=== PATIENT | female | born 1955 | race Caucasian/White ===

== ENCOUNTER 2020-07-08 14:21 | Outpatient (REF) | payer MEDICARE, MEDICAID, SELFPAY | END 2020-07-08 14:22 | disposition home or self-care (01) | LOC: HO.HMGCLDS 14:21 | PROVIDERS: PCP Internal Medicine; Visit Provider Internal Medicine | DX: Z20.828 Contact with and (suspected) exposure to other viral communicable diseases (principal) | CPT/HCPCS: C9803; U0003 ==

== ENCOUNTER 2021-04-09 14:19 | Outpatient (REF) | payer MEDICARE, MEDICAID, SELFPAY ==
[2021-04-09 16:30] LABS: Hematocrit 43.1 % (37-47); Hemoglobin 14.3 g/dl (12.0-16.0)
[2021-04-09 16:57] LABS: Alanine Aminotransferase 11 U/L (0-31); Albumin Level 4.7 g/dL (3.5-5.0); Alkaline Phosphatase 59 U/L (39-117); Anion Gap 13 (12-20); Aspartate Amino Transferase 27 U/L (5-31); Bilirubin Direct 0.2 mg/dL (0.0-0.5); Bilirubin Total 0.6 mg/dL (0.0-1.0); Blood Urea Nitrogen 18 mg/dL (9-16); Calcium 9.7 mg/dL (8.4-10.2); Carbon Dioxide 36 mmol/L (22-29); Chloride 88 mmol/L (96-108); Estimated Glomerular Filt Rate > 60; Glucose Random 101 mg/dL (60-115); Magnesium 1.7 mg/dL (1.6-2.6); Potassium 4.6 mmol/L (3.3-5.1); Sodium 132 mmol/L (135-145); Total Protein 7.2 g/dL (6.5-8.0)
[2021-04-09 17:17] LABS: TSH reflex Free T4 39.29 uIU/mL (0.32-4.0)
[2021-04-09 17:21] LABS: Vitamin B12 397 pg/mL (200-900)
[2021-04-09 18:09] LABS: Free T4 (Free Thyroxine) 0.68 ng/dL (0.71-1.85)
[2021-04-11 12:36] LABS: LDL Cholesterol Direct 166 mg/dL (<100)
[2021-04-13 12:41] LABS: Vitamin D 25-OH, D2 <4 ng/mL; Vitamin D 25-OH, D3 32 ng/mL; Vitamin D 25-OH, Total 32 ng/mL (30-100)
== END 2021-04-09 14:20 | disposition home or self-care (01) ==
LOC: HO.HMGCLDS 14:19
PROVIDERS: PCP Internal Medicine; Visit Provider Internal Medicine
DX: D64.9 Anemia, unspecified (principal); E03.8 Other specified hypothyroidism; E87.1 Hypo-osmolality and hyponatremia; F33.41 Major depressive disorder, recurrent, in partial remission; G47.9 Sleep disorder, unspecified; I10 Essential (primary) hypertension; J44.9 Chronic obstructive pulmonary disease, unspecified; R25.3 Fasciculation; R42 Dizziness and giddiness; R63.6 Underweight; Z91.81 History of falling
CPT/HCPCS: 36415; 80053; 82248; 82306; 82607; 83721; 83735; 84439; 84443; 85014; 85018

== ENCOUNTER 2022-01-28 08:32 | Emergency (ER) | payer MEDICARE, MEDICAID, SELFPAY ==
--- NOTE | ~2022-01-28 | XR_ITS ---
EXAMINATION: XR CHEST CLINICAL INFORMATION: Shortness of breath COMPARISON: Previous chest CT November 2020 TECHNIQUE: Frontal view of the chest was obtained. FINDINGS: The lungs are well inflated. There is an azygos lobe. There are increased bronchial markings or bronchial wall thickening. No evidence of pneumonia is seen. There is a 4 mm nodule projecting over the left midlung and posterior ninth and anterior fifth ribs. The lungs are otherwise clear. The cardiac and mediastinal contours are normal. There is no pleural effusion or pneumothorax. XR/XR chest 1V IMPRESSION: Well-inflated lungs. Bronchial wall thickening suggestive of bronchitis or airways disease. No definite pneumonia. Question 4 mm left lung base pulmonary nodule.
[2022-01-28 08:37] VITALS: BP 162/90; PULSE 96; RESP 22; TEMP 36.7; O2SAT 91; BMI 20.4
--- NOTE | 2022-01-28 09:09 | ECG_ITS ---
Test Reason : exertional sob Blood Pressure : / mmHG Vent. Rate : 081 BPM Atrial Rate : 081 BPM P-R Int : 112 ms QRS Dur : 080 ms QT Int : 346 ms P-R-T Axes : 059 062 049 degrees QTc Int : 401 ms Normal sinus rhythm Normal ECG No previous ECGs available Referred By: Nay Tavera Electronically Signed By:Julio Cesar Viera
--- NOTE | 2022-01-28 09:16 | ED.GENADULT ---
HPI - General Adult General Chief complaint: Dyspnea Stated complaint: infestation coming out of buttocks Time Seen by Provider: 01/28/22 08:40 Source: patient Mode of arrival: ambulatory History of Present Illness HPI narrative: 66-year-old female with a past medical history of COPD on home O2, HTN, depression, hypothyroid, vertigo, presenting to ED with daughter complaining of exertional SOB, lightheadedness, failure to thrive, and parasitic infestation for unknown amount of time. Most history obtained from daughter reports patient has been living with her for the past 11 years and recently found maggots/bugs and toilet/couch, states patient does not bathe regularly or eaten unless forced. Patient also reports intermittent bright red blood per rectum, denies at present. Patient denies new or worsening cough, CP, abdominal pain, nausea, vomiting Onset (ago): unknown Related Data Home Medications Medication Instructions Recorded Confirmed albuterol sulfate 2.5 mg inhalation QID PRN Wheezing 08/25/20 01/28/22 budesonide-formoterol HFA 160 2 puff inhalation Q12H 08/25/20 01/28/22 mcg-4.5 mcg/actuation aerosol inhaler (Symbicort) albuterol sulfate 90 mcg/actuation 2 puff PO Q4-6H PRN Wheezing 01/28/22 01/28/22 aerosol inhaler (ProAir HFA) clonazepam 0.5 mg tablet 1 tab PO DAILY PRN Anxiety 01/28/22 01/28/22 Previous Rx's Medication Instructions Recorded tiotropium bromide 18 mcg capsule 1 cap inhalation DAILY 90 days #90 05/15/20 with inhalation device (Spiriva inhalations with HandiHaler) Walker with wheels and baske, #1 ea 05/04/21 seat, and break sertraline 100 mg tablet 100 mg PO DAILY 90 days #90 tabs 05/28/21 clopidogrel 75 mg tablet (Plavix) 75 mg PO DAILY 90 days #90 tabs 07/13/21 levothyroxine 125 mcg tablet 125 mcg PO DAILY 90 days #90 tabs 12/03/21 lisinopril 20 mg tablet 20 mg PO DAILY #90 tabs 01/16/22 albendazole 200 mg tablet 400 mg PO Q2W 2 doses #2 tabs 01/28/22 prednisone 20 mg tablet 40 mg PO DAILY 5 days #10 tabs 01/28/22 Allergies Allergy/AdvReac Type Severity Reaction Status Date / Time codeine Allergy Unknown hives Verified 05/26/20 12:04 Review of Systems Review of Systems: Constitutional: No Fever, No Chills, + Fatigue, No Malaise ENT/Mouth: No Ear Pain, No Nasal Congestion, No Hoarseness, No sore throat, No Rhinorrhea, No Swallowing Difficulty Eyes: No Eye Pain, No Swelling, No Redness Cardiovascular: No Chest Pain, + SOB, + Dyspnea on Exertion, No Orthopnea, No Edema, No Palpitations Respiratory: + Cough, No Sputum, No Wheezing, No Dyspnea Gastrointestinal: No Nausea, No Vomiting, No Diarrhea, No Constipation, No Abdominal pain, No Melena, +brbpr Genitourinary: No Dysuria, No Urinary Frequency, No Hematuria, No Flank Pain, No Urinary Flow Changes, No Hesitancy Musculoskeletal: No joint pain, No Myalgias, No Joint Swelling Skin: No Skin Lesions, No rash Neuro: No Weakness, No Loss of Consciousness, + lightheaded, No Headache Yes all other systems are reviewed and are negative FORMERLY [facility], [facility] Past Medical History Attestation statement: The following information was validated with the patient. Surgical History Amputated toe History of appendectomy History of surgery Hx of cholecystectomy Family History Family History Father No problems noted. Mother Stomach cancer Brother No problems noted. Brother No problems noted. Brother No problems noted. Brother No problems noted. Brother No problems noted. Brother No problems noted. Sister No problems noted. Sister No problems noted. Sister No problems noted. Sister No problems noted. Social History Social History Housing: Apartment Patient Tobacco Use Status: Current everyday Tobacco user Tobacco use type: Cigarette Cigarettes Per Day: 3 e-Cigarette/Vaping Use: Never Used Advance Directives: No Advance Directives Information Provided: No Current occupational status: retired and disabled Physical Exam ED Vital Signs: Vital Signs - 24 hr 01/28/22 08:37 01/28/22 09:18 01/28/22 10:00 Temperature 98.1 F 97.7 F Pulse Rate 96 76 77 Respiratory Rate 22 H 20 16 Blood Pressure 162/90 H 168/72 H Pulse Oximetry 91 L 93 Oxygen Delivery Method Nasal Cannula Nasal Cannula Oxygen Flow Rate 2 01/28/22 12:07 Temperature Pulse Rate 71 Respiratory Rate 16 Blood Pressure Pulse Oximetry Oxygen Delivery Method Oxygen Flow Rate BMI result Body Mass Index 20.4 Const General: cooperative, no acute distress and ill appearing chronically Orientation/consciousness: patient oriented x3 Limitations: no limitations HENMT Head: Yes normal to inspection and Yes atraumatic Ears: hearing grossly normal bilaterally General nose exam: Normal external nose present Face and sinus: Yes normal facial exam Eyes General: appearance normal, both eyes and all related structures EOM: EOMs intact bilaterally Neck Neck: Yes normal visual inspection and Yes no meningeal signs Resp Effort & Inspection: normal respiratory effort and no respiratory distress Auscultation: wheezes expiratory wheezes Cardio Rate: regular rate Heart sounds: S1 normal heart sound present and S2 normal heart sound present GI Other: Large prolapsed internal hemorrhoid. No evidence of thrombosis. No active bleeding. Inspection: Yes normal to inspection Palpation (GI): Soft to palpation, nontender, no guarding and not rigid Rectal Exam - Female: Internal hemorrhoid(s) present Skin Rashes: no rashes Wounds: no wounds Neuro General: patient oriented x3, tone normal and no meningeal signs Gait exam (Neuro): Normal gait present Extrem General: Yes normal to inspection Course Course Course Narrative: -1051--mild thrombocytopenia (acute on chronic), BNP mildly elevated to 124 clinically not in fluid overload. Labs otherwise unremarkable -occult stool negative -COVID-19 and influenza negative XR chest 1V IMPRESSION: Well-inflated lungs. Bronchial wall thickening suggestive of bronchitis or airways disease. No definite pneumonia. Question 4 mm left lung base pulmonary nodule. -1200--On re-evaluation patient reports symptomatic improvement after DuoNeb. Lungs with good air movement, residual bibasilar expiratory wheeze. IV Solu-Medrol an additional DuoNeb ordered. > would like to treat patient empirically for pinworm however we do not have any treatment options in the hospital, will have to wait until patient is discharged home or to SNF. - UA is contaminated, will wait for cultures prior to treating -physician observation initiated as patient needs more time to be evaluated by Case Management -1626--on re-evaluation patient reports symptomatic improvement after 2nd DuoNeb/SoluMedrol. Lungs CTA, patient satting 97% on baseline O2 -nurse outreach case manager Gina spoke with patient and patient's daughter multiple times, daughter reports house is infested with bugs, patient is A&O x3 however it is unsafe to discharge patient to these living conditions. Patient contacted her sister who is willing to take her in. Patient's sister will get patient's oxygen from home. Patient will be Enma'd from emergency department to her sister's house. Patient is in agreement with this plan Medical Decision Making MDM Narrative Medical decision making narrative: 66-year-old female with a past medical history of COPD on home O2, HTN, depression, hypothyroid, vertigo, presenting to ED with daughter complaining of exertional SOB, lightheadedness, failure to thrive, and parasitic infestation for unknown amount of time. On exam satting 91% on baseline NC, lungs with good air movement and diffuse expiratory wheeze, abdomen soft/nontender, large hemorrhoid noted on rectal, no evidence of active bleeding. No appreciable parasites. Daughter did showed this public relations writer pictures of parasites on phone. Concern for failure to thrive including metabolic abnormalities vs COPD exacerbation vs GI bleed vs hemorrhoidal bleed Daughter unwilling to bring patient doctor her house, looking for STR/LTC Low concern for severe sepsis Plan: Labs, UA, CXR, COVID-19/influenza testing, case management, Duoneb Medical Records Medical records reviewed: Yes I reviewed the patient's medical records. Lab Data Lab results reviewed: Yes I reviewed the patient's lab results. Result diagrams: 01/28/22 09:34 01/28/22 09:34 Labs: Lab Results 01/28/22 01/28/22 01/28/22 Range/Units 09:23 09:23 09:34 WBC 4.1 L (4.8-10.8) X10*3/uL RBC 3.80 L (4.20-5.50) X10*6/uL Hgb 11.5 L (12.0-16.0) g/dl Hct 36.7 L (37.0-47.0) % MCV 96.6 (80.0-98.0) fL MCH 30.3 (27.0-33.0) pg MCHC 31.3 (31.0-35.0) g/dl RDW 12.5 (11.0-16.0) % Plt Count 128 L (160-400) X10*3/uL MPV 10.2 (9.4-12.3) fL Immature Gran % (Auto) 0.2 (0.0-0.4) % Neut % (Auto) 67.1 (45-73) % Lymph % (Auto) 19.2 L (20-40) % [place] % (Auto) 10.1 (2-11) % Eos % (Auto) 2.7 (0-4) % Baso % (Auto) 0.7 (0-2) % Lymph # (Auto) 0.8 L (1.2-4.9) X10*3/uL [place] # (Auto) 0.4 (0.1-1.2) X10*3/uL Eos # (Auto) 0.1 (0.0-0.4) X10*3/uL Baso # (Auto) 0.0 (0.0-0.2) X10*3/uL Abs Immat Gran (auto) 0.01 (0.00-0.03) X10*3/uL Absolute Neuts (auto) 2.7 (2.0-8.3) x10*3/uL Absolute Nucleated RBC 0.000 (0.0-0.012) X10*3/uL Nucleated RBC % (auto) 0.0 (0.0-0.2) /100WBC VBG pH (7.32-7.43) VBG pCO2 mmHg VBG pO2 mmHg VBG HCO3 (22-26) mmol/L VBG O2 Saturation % VBG Base Excess mmol/L Sodium (135-145) mmol/L Potassium (3.3-5.1) mmol/L Chloride (96-108) mmol/L Carbon Dioxide (22-29) mmol/L Anion Gap (12-20) BUN (9-16) mg/dL Creatinine (0.5-1.4) mg/dL Estim Creat Clear Calc Estimated GFR Random Glucose (60-115) mg/dL Lactic Acid (0.5-2.0) mmol/L Calcium (8.4-10.2) mg/dL Magnesium (1.6-2.6) mg/dL Total Bilirubin (0.0-1.0) mg/dL Direct Bilirubin (0.0-0.5) mg/dL AST (5-31) U/L ALT (0-31) U/L Alkaline Phosphatase (39-117) U/L Troponin I High Sens (<3.5-17.0) ng/L B-Natriuretic Peptide (<100) pg/mL Total Protein (6.5-8.0) g/dL Albumin (3.5-5.0) g/dL Lipase (8-78) U/L Urine Color Urine Appearance Urine pH (5.0-8.0) Ur Specific [place] (1.005-1.025) Urine Protein (NEG-TRACE) MG/DL Urine Glucose (UA) (NEG) MG/DL Urine Ketones (NEG) MG/DL Urine Blood (NEG) Urine Nitrite (NEG) Ur Leukocyte Esterase (NEG) Urine RBC (0) /HPF Urine WBC (0-4) /HPF Ur Squamous Epith Cells /LPF Urine Bacteria /LPF Stool Occult Blood (NEGATIVE) COVID-19 (TIP) Negative (Negative) COVID-19 Clin Com See Note Influenza Type A (MAGALIE) Negative (Negative) Influenza Type B (MAGALIE) Negative (Negative) Influenza A & B Note See Note O & P Trichrome Stain 01/28/22 01/28/22 01/28/22 Range/Units 09:34 09:34 09:34 WBC (4.8-10.8) X10*3/uL RBC (4.20-5.50) X10*6/uL Hgb (12.0-16.0) g/dl Hct (37.0-47.0) % MCV (80.0-98.0) fL MCH (27.0-33.0) pg MCHC (31.0-35.0) g/dl RDW (11.0-16.0) % Plt Count (160-400) X10*3/uL MPV (9.4-12.3) fL Immature Gran % (Auto) (0.0-0.4) % Neut % (Auto) (45-73) % Lymph % (Auto) (20-40) % [place] % (Auto) (2-11) % Eos % (Auto) (0-4) % Baso % (Auto) (0-2) % Lymph # (Auto) (1.2-4.9) X10*3/uL [place] # (Auto) (0.1-1.2) X10*3/uL Eos # (Auto) (0.0-0.4) X10*3/uL Baso # (Auto) (0.0-0.2) X10*3/uL Abs Immat Gran (auto) (0.00-0.03) X10*3/uL Absolute Neuts (auto) (2.0-8.3) x10*3/uL Absolute Nucleated RBC (0.0-0.012) X10*3/uL Nucleated RBC % (auto) (0.0-0.2) /100WBC VBG pH (7.32-7.43) VBG pCO2 mmHg VBG pO2 mmHg VBG HCO3 (22-26) mmol/L VBG O2 Saturation % VBG Base Excess mmol/L Sodium 139 (135-145) mmol/L Potassium 4.2 (3.3-5.1) mmol/L Chloride 95 L (96-108) mmol/L Carbon Dioxide 37 H (22-29) mmol/L Anion Gap 11 L (12-20) BUN 13 (9-16) mg/dL Creatinine 0.69 (0.5-1.4) mg/dL Estim Creat Clear Calc 56.0 Estimated GFR > 60 Random Glucose 104 (60-115) mg/dL Lactic Acid 1.0 (0.5-2.0) mmol/L Calcium 8.8 D (8.4-10.2) mg/dL Magnesium 1.7 (1.6-2.6) mg/dL Total Bilirubin 0.3 (0.0-1.0) mg/dL Direct Bilirubin 0.2 (0.0-0.5) mg/dL AST 26 (5-31) U/L ALT 39 H (0-31) U/L Alkaline Phosphatase 113 D (39-117) U/L Troponin I High Sens 6.2 (<3.5-17.0) ng/L B-Natriuretic Peptide (<100) pg/mL Total Protein 6.0 L (6.5-8.0) g/dL Albumin 3.7 D (3.5-5.0) g/dL Lipase 7 L (8-78) U/L Urine Color Urine Appearance Urine pH (5.0-8.0) Ur Specific [place] (1.005-1.025) Urine Protein (NEG-TRACE) MG/DL Urine Glucose (UA) (NEG) MG/DL Urine Ketones (NEG) MG/DL Urine Blood (NEG) Urine Nitrite (NEG) Ur Leukocyte Esterase (NEG) Urine RBC (0) /HPF Urine WBC (0-4) /HPF Ur Squamous Epith Cells /LPF Urine Bacteria /LPF Stool Occult Blood (NEGATIVE) COVID-19 (TIP) (Negative) COVID-19 Clin Com Influenza Type A (MAGALIE) (Negative) Influenza Type B (MAGALIE) (Negative) Influenza A & B Note O & P Trichrome Stain 01/28/22 01/28/22 01/28/22 Range/Units 09:34 09:42 10:46 WBC (4.8-10.8) X10*3/uL RBC (4.20-5.50) X10*6/uL Hgb (12.0-16.0) g/dl Hct (37.0-47.0) % MCV (80.0-98.0) fL MCH (27.0-33.0) pg MCHC (31.0-35.0) g/dl RDW (11.0-16.0) % Plt Count (160-400) X10*3/uL MPV (9.4-12.3) fL Immature Gran % (Auto) (0.0-0.4) % Neut % (Auto) (45-73) % Lymph % (Auto) (20-40) % [place] % (Auto) (2-11) % Eos % (Auto) (0-4) % Baso % (Auto) (0-2) % Lymph # (Auto) (1.2-4.9) X10*3/uL [place] # (Auto) (0.1-1.2) X10*3/uL Eos # (Auto) (0.0-0.4) X10*3/uL Baso # (Auto) (0.0-0.2) X10*3/uL Abs Immat Gran (auto) (0.00-0.03) X10*3/uL Absolute Neuts (auto) (2.0-8.3) x10*3/uL Absolute Nucleated RBC (0.0-0.012) X10*3/uL Nucleated RBC % (auto) (0.0-0.2) /100WBC VBG pH (7.32-7.43) VBG pCO2 mmHg VBG pO2 mmHg VBG HCO3 (22-26) mmol/L VBG O2 Saturation % VBG Base Excess mmol/L Sodium (135-145) mmol/L Potassium (3.3-5.1) mmol/L Chloride (96-108) mmol/L Carbon Dioxide (22-29) mmol/L Anion Gap (12-20) BUN (9-16) mg/dL Creatinine (0.5-1.4) mg/dL Estim Creat Clear Calc Estimated GFR Random Glucose (60-115) mg/dL Lactic Acid (0.5-2.0) mmol/L Calcium (8.4-10.2) mg/dL Magnesium (1.6-2.6) mg/dL Total Bilirubin (0.0-1.0) mg/dL Direct Bilirubin (0.0-0.5) mg/dL AST (5-31) U/L ALT (0-31) U/L Alkaline Phosphatase (39-117) U/L Troponin I High Sens (<3.5-17.0) ng/L B-Natriuretic Peptide 124 H (<100) pg/mL Total Protein (6.5-8.0) g/dL Albumin (3.5-5.0) g/dL Lipase (8-78) U/L Urine Color YELLOW Urine Appearance HAZY Urine pH 6.5 (5.0-8.0) Ur Specific [place] 1.010 (1.005-1.025) Urine Protein NEG (NEG-TRACE) MG/DL Urine Glucose (UA) NEG (NEG) MG/DL Urine Ketones NEG (NEG) MG/DL Urine Blood NEG (NEG) Urine Nitrite NEG (NEG) Ur Leukocyte Esterase 2+ H (NEG) Urine RBC 1-4 (0) /HPF Urine WBC 5-9 H (0-4) /HPF Ur Squamous Epith Cells 4+ /LPF Urine Bacteria 2+ /LPF Stool Occult Blood NEGATIVE (NEGATIVE) COVID-19 (TIP) (Negative) COVID-19 Clin Com Influenza Type A (MAGALIE) (Negative) Influenza Type B (MAGALIE) (Negative) Influenza A & B Note O & P Trichrome Stain 01/28/22 01/28/22 Range/Units 10:55 15:01 WBC (4.8-10.8) X10*3/uL RBC (4.20-5.50) X10*6/uL Hgb (12.0-16.0) g/dl Hct (37.0-47.0) % MCV (80.0-98.0) fL MCH (27.0-33.0) pg MCHC (31.0-35.0) g/dl RDW (11.0-16.0) % Plt Count (160-400) X10*3/uL MPV (9.4-12.3) fL Immature Gran % (Auto) (0.0-0.4) % Neut % (Auto) (45-73) % Lymph % (Auto) (20-40) % [place] % (Auto) (2-11) % Eos % (Auto) (0-4) % Baso % (Auto) (0-2) % Lymph # (Auto) (1.2-4.9) X10*3/uL [place] # (Auto) (0.1-1.2) X10*3/uL Eos # (Auto) (0.0-0.4) X10*3/uL Baso # (Auto) (0.0-0.2) X10*3/uL Abs Immat Gran (auto) (0.00-0.03) X10*3/uL Absolute Neuts (auto) (2.0-8.3) x10*3/uL Absolute Nucleated RBC (0.0-0.012) X10*3/uL Nucleated RBC % (auto) (0.0-0.2) /100WBC VBG pH 7.33 (7.32-7.43) VBG pCO2 65 mmHg VBG pO2 43 mmHg VBG HCO3 34 H (22-26) mmol/L VBG O2 Saturation 67.0 % VBG Base Excess 7.1 mmol/L Sodium (135-145) mmol/L Potassium (3.3-5.1) mmol/L Chloride (96-108) mmol/L Carbon Dioxide (22-29) mmol/L Anion Gap (12-20) BUN (9-16) mg/dL Creatinine (0.5-1.4) mg/dL Estim Creat Clear Calc Estimated GFR Random Glucose (60-115) mg/dL Lactic Acid (0.5-2.0) mmol/L Calcium (8.4-10.2) mg/dL Magnesium (1.6-2.6) mg/dL Total Bilirubin (0.0-1.0) mg/dL Direct Bilirubin (0.0-0.5) mg/dL AST (5-31) U/L ALT (0-31) U/L Alkaline Phosphatase (39-117) U/L Troponin I High Sens (<3.5-17.0) ng/L B-Natriuretic Peptide (<100) pg/mL Total Protein (6.5-8.0) g/dL Albumin (3.5-5.0) g/dL Lipase (8-78) U/L Urine Color Urine Appearance Urine pH (5.0-8.0) Ur Specific [place] (1.005-1.025) Urine Protein (NEG-TRACE) MG/DL Urine Glucose (UA) (NEG) MG/DL Urine Ketones (NEG) MG/DL Urine Blood (NEG) Urine Nitrite (NEG) Ur Leukocyte Esterase (NEG) Urine RBC (0) /HPF Urine WBC (0-4) /HPF Ur Squamous Epith Cells /LPF Urine Bacteria /LPF Stool Occult Blood (NEGATIVE) COVID-19 (TIP) (Negative) COVID-19 Clin Com Influenza Type A (MAGALIE) (Negative) Influenza Type B (MAGALIE) (Negative) Influenza A & B Note O & P Trichrome Stain TNP Discharge Plan Discharge Clinical Impression: Chronic obstructive pulmonary disease, Adult failure to thrive, Parasite infection Patient Disposition: Home, Self-Care Instructions: Pinworm Infection (ED), COPD (Chronic Obstructive Pulmonary Disease) (ED), Failure to Thrive in Older Adults (ED) Additional Instructions: Your blood work was reassuring, your x-ray shows evidence of bronchitis/COPD. You are having a COPD exacerbation. Continue to use home inhalers, the machine and start taking prednisone as prescribed. It is also suspected you have pinworm/bug infestation, Albendazole should treat this. Please follow-up with her primary care doctor closely, you should send a stool sample to be tested for parasites If symptoms persist or worsening of constant worsening shortness breath or chest pain, or see bugs/worms but them in container. Return to the emergency department if symptoms persist or worsen Prescriptions: New prednisone 20 mg tablet 40 mg PO DAILY 5 Days Qty: 10 0RF albendazole 200 mg tablet 400 mg PO Q2W Qty: 2 0RF Rx Instructions: must administer on empty stomach, repeat in two weeks No Action Spiriva with HandiHaler 18 mcg capsule, w/inhalation device 1 cap inhalation DAILY 90 Days Qty: 90 3RF Rx Instructions: puncture 1 cap using device; one dose = 2 inhalations albuterol sulfate 2.5 mg /3 mL (0.083 %) solution for nebulization 2.5 mg inhalation QID PRN (Reason: Wheezing) budesonide-formoterol [Symbicort] 160-4.5 mcg/actuation HFA aerosol inhaler 2 puff inhalation Q12H (DME) Walker with wheels and baske, seat, and break See Rx Instructions .Route .MEDSUPPLY Qty: 1 0RF Rx Instructions: Walker with wheels, break, seat and basket sertraline 100 mg tablet 100 mg PO DAILY 90 Days Qty: 90 0RF clopidogrel [Plavix] 75 mg tablet 75 mg PO DAILY 90 Days Qty: 90 3RF levothyroxine 125 mcg tablet 125 mcg PO DAILY 90 Days Qty: 90 0RF lisinopril 20 mg tablet 20 mg PO DAILY Qty: 90 0RF clonazepam 0.5 mg tablet 1 tab PO DAILY PRN (Reason: Anxiety) albuterol sulfate [ProAir HFA] 90 mcg/actuation HFA aerosol inhaler 2 puff PO Q4-6H PRN (Reason: Wheezing) Referrals: Eddie Watkins MD [Primary Care Provider] - 1 day
[2022-01-28] MEDS: Albuterol/Iprat 2.5/0.5MG 3 ML AMPUL.NEB INHALE ×2 (09:17→12:06)
[2022-01-28 09:18] VITALS: PULSE 76; RESP 20; O2SAT 92
[2022-01-28] MEDS: 0.9 % Sodium Chloride 1,000 ML 999 ML IV (09:31)
[2022-01-28 09:48] LABS: MANUAL DIFF FLAG NO
[2022-01-28 09:57] LABS: Basophils Percent Auto 0.7 % (0-2); Eosinophils Absolute Auto 0.1 X10*3/uL (0.0-0.4); Eosinophils Percent Auto 2.7 % (0-4); Hematocrit 36.7 % (37.0-47.0); Hemoglobin 11.5 g/dl (12.0-16.0); Imm Gran Abs Auto 0.01 X10*3/uL (0.00-0.03); Imm Gran Pct Auto 0.2 % (0.0-0.4); Lymphocytes Absolute Auto 0.8 X10*3/uL (1.2-4.9); Lymphocytes Percent Auto 19.2 % (20-40); Mean Corpuscular HGB Conc 31.3 g/dl (31.0-35.0); Mean Corpuscular Hemoglobin 30.3 pg (27.0-33.0); Mean Corpuscular Volume 96.6 fL (80.0-98.0); Mean Platelet Volume 10.2 fL (9.4-12.3); Monocytes Absolute Auto 0.4 X10*3/uL (0.1-1.2); Monocytes Percent Auto 10.1 % (2-11); Neutrophils Absolute Auto 2.7 x10*3/uL (2.0-8.3); Neutrophils Percent Auto 67.1 % (45-73); Platelet Count 128 X10*3/uL (160-400); Red Cell Distribution Width 12.5 % (11.0-16.0); White Blood Count 4.1 X10*3/uL (4.8-10.8)
--- NOTE | 2022-01-28 09:57 | PHA.MEDREC ---
Pharmacy Consult ? Medication Reconciliation Pharmacy has completed the medication reconciliation. Patient has albuterol nebulizer solution at home but states she does not use it often. Patient also states shes been taking mucinex as needed, last dose taken last night.
[2022-01-28 10:00] VITALS: BP 168/72; PULSE 77; RESP 16; TEMP 36.5; O2SAT 93
[2022-01-28 10:05] LABS: COVID-19 Test Negative (Negative); IDNOW Serial# 16C4AD1C; Influenza A Negative (Negative); Influenza B2 Negative (Negative)
[2022-01-28 10:06] LABS: OBS Int Ctl Valid YES; OBS1 NEGATIVE (NEGATIVE)
[2022-01-28 10:06] LABS: Alanine Aminotransferase 39 U/L (0-31); Albumin Level 3.7 g/dL (3.5-5.0); Alkaline Phosphatase 113 U/L (39-117); Anion Gap 11 (12-20); Aspartate Amino Transferase 26 U/L (5-31); Bilirubin Direct 0.2 mg/dL (0.0-0.5); Bilirubin Total 0.3 mg/dL (0.0-1.0); Blood Urea Nitrogen 13 mg/dL (9-16); Calcium 8.8 mg/dL (8.4-10.2); Carbon Dioxide 37 mmol/L (22-29); Chloride 95 mmol/L (96-108); Estimated Glomerular Filt Rate > 60; Glucose Random 104 mg/dL (60-115); Lipase 7 U/L (8-78); Magnesium 1.7 mg/dL (1.6-2.6); Potassium 4.2 mmol/L (3.3-5.1); Sodium 139 mmol/L (135-145)
[2022-01-28 10:10] LABS: B Type Natriuretic Peptide 124 pg/mL (<100)
[2022-01-28 10:14] LABS: Troponin-I High Sensitivity 6.2 ng/L (<3.5-17.0)
[2022-01-28 10:59] LABS: VBG Base Excess 7.1 mmol/L; VBG HCO3 34 mmol/L (22-26); VBG pCO2 65 mmHg; VBG pH 7.33 (7.32-7.43); VBG pO2 43 mmHg
[2022-01-28 10:59] LABS: Venous Blood Gas Refer to POC result
[2022-01-28 11:06] LABS: Appearance Urine HAZY; Color Urine YELLOW; Glucose Urine UA NEG (NEG); Leukocyte Esterase Urine 2+ (NEG); Nitrite Urine NEG (NEG); PH 6.5 (5.0-8.0); UACC Culture Trigger YES; Urine Blood NEG (NEG); Urine Ketones NEG (NEG); Urine Protein NEG (NEG-TRACE)
[2022-01-28 11:22] LABS: Bacteria Urine 2+ /LPF; Squamous Epithelial Cell Urine 4+ /LPF
[2022-01-28] MEDS: clonazePAM 0.5 MG TABLET PO (12:00)
[2022-01-28] MEDS: methylPREDNISolone Sod Succ 125 MG/2 ML VIAL IVPUSH (12:04)
[2022-01-28 12:07] VITALS: PULSE 71; RESP 16; O2SAT 95
[2022-01-28 16:00] VITALS: BP 155/82; PULSE 74; RESP 18; TEMP 36.5; O2SAT 100
[2022-01-28 16:11] LABS: Leukocytes Stool Qualitative FEW: < 2/OIF (NEGATIVE)
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
--- NOTE | 2022-01-31 10:35 | MHC.CM.ED ---
Received call from pt requesting results of cultures: verified identity and verbally read cx reports to pt. Pt states she is fearful of her dtr Anisa with whom she legally resides but has been staying with her sister for several days. Pt states she checked her bank account today and noticed that she only has the minimum in the account. Anisa spent all of my money because she is mad at me, she has access to all my accounts [facility] report has been filed and pt is waiting for an background investigator to call her. Pt states she is safe with her sister but cannot stay there for long d/t lease issues. Pt encouraged to f/u with [facility] if she does not receive a call by tomorrow. Pt requests that no information be given to Anisa, pt's dtr. CM to follow
--- NOTE | 2022-02-02 15:59 | MHC.CM.ED ---
LOLITA received a T/C from Ashanti at [facility] regarding this patient. CM returned call and left message for Ashanti. Pt called CM asking for help, as her daughter will not let her into the apartment, she can only stay with her sister for 1 more day, and her daughter has not allowed pt or family to warehouse picker the patients oxygen concentrator, so patient has been using her portable unit. CM gave pt contact information for [facility]. CM spoke with Ashanti from [facility] this morning with above information and per Ashanti, they will open a case, since pt will be homeless. Pt aware that CM filed with [facility].
== END 2022-01-28 16:29 | disposition home or self-care (01) ==
PROVIDERS: Emergency Medicine; Physician Assistant; Emergency Provider Student in an Organized Health Care Education/Training Program; PCP Internal Medicine
DX: R62.7 Adult failure to thrive (principal); Z68.20 Body mass index [BMI] 20.0-20.9, adult; B88.9 Infestation, unspecified; J44.9 Chronic obstructive pulmonary disease, unspecified; I10 Essential (primary) hypertension; Z79.899 Other long term (current) drug therapy; Z99.81 Dependence on supplemental oxygen; Z20.822 Contact with and (suspected) exposure to COVID-19
CPT/HCPCS: 71045; 80048; 80076; 81001; 81003; 82272; 82803; 83605; 83690; 83735; 83880; 84484; 85025; 87040; 87045; 87046; 87086; 87177; 87502; 87635; 89055; 93005; 94640; 96361; 96374; 99284; 99285; J2930

== ENCOUNTER 2022-11-15 14:15 | Outpatient (REF) | payer MEDICARE, MEDICAID, SELFPAY ==
[2022-11-15 16:54] LABS: MANUAL DIFF FLAG NO
[2022-11-15 17:00] LABS: Basophils Absolute Auto 0.1 X10*3/uL (0.0-0.2); Basophils Percent Auto 1.8 % (0-2); Eosinophils Absolute Auto 0.2 X10*3/uL (0.0-0.4); Eosinophils Percent Auto 2.7 % (0-4); Hematocrit 40.7 % (37.0-47.0); Hemoglobin 12.5 g/dl (12.0-16.0); Imm Gran Abs Auto 0.02 X10*3/uL (0.00-0.03); Imm Gran Pct Auto 0.4 % (0.0-0.4); Lymphocytes Absolute Auto 1.5 X10*3/uL (1.2-4.9); Lymphocytes Percent Auto 27.5 % (20-40); Mean Corpuscular HGB Conc 30.7 g/dl (31.0-35.0); Mean Corpuscular Hemoglobin 30.6 pg (27.0-33.0); Mean Corpuscular Volume 99.8 fL (80.0-98.0); Mean Platelet Volume 10.7 fL (9.4-12.3); Monocytes Absolute Auto 0.6 X10*3/uL (0.1-1.2); Monocytes Percent Auto 10.7 % (2-11); Neutrophils Absolute Auto 3.2 x10*3/uL (2.0-8.3); Neutrophils Percent Auto 56.9 % (45-73); Platelet Count 167 X10*3/uL (160-400); Red Blood Count 4.08 X10*6/uL (4.20-5.50); White Blood Count 5.6 X10*3/uL (4.8-10.8)
[2022-11-15 17:46] LABS: TSH reflex Free T4 10.84 uIU/mL (0.32-4.0)
[2022-11-15 18:29] LABS: Alanine Aminotransferase 22 U/L (0-31); Alkaline Phosphatase 108 U/L (39-117); Anion Gap 11 (12-20); Aspartate Amino Transferase 36 U/L (5-31); Bilirubin Total 0.5 mg/dL (0.0-1.0); Blood Urea Nitrogen 17 mg/dL (9-16); Calcium 9.1 mg/dL (8.4-10.2); Carbon Dioxide 42 mmol/L (22-29); Chloride 91 mmol/L (96-108); Estimated Glomerular Filt Rate > 60; Glucose Random 88 mg/dL (60-115); Potassium 4.5 mmol/L (3.3-5.1); Sodium 139 mmol/L (135-145); Total Protein 6.5 g/dL (6.5-8.0)
[2022-11-15 18:58] LABS: Free T4 (Free Thyroxine) 0.81 ng/dL (0.71-1.85)
== END 2022-11-15 14:16 | disposition home or self-care (01) ==
LOC: HO.HMGCLDS 14:15
PROVIDERS: PCP Internal Medicine; Visit Provider Internal Medicine
DX: D64.9 Anemia, unspecified (principal); E03.8 Other specified hypothyroidism; F33.41 Major depressive disorder, recurrent, in partial remission; I10 Essential (primary) hypertension; J44.9 Chronic obstructive pulmonary disease, unspecified; R63.0 Anorexia; Z99.81 Dependence on supplemental oxygen; F33.9 Major depressive disorder, recurrent, unspecified; F41.9 Anxiety disorder, unspecified; G62.9 Polyneuropathy, unspecified; I73.9 Peripheral vascular disease, unspecified; R42 Dizziness and giddiness; Z91.81 History of falling
CPT/HCPCS: 36415; 80053; 84439; 84443; 85025

== ENCOUNTER 2023-01-10 17:11 | Emergency (ER) | payer MEDICARE, MEDICAID, SELFPAY ==
--- NOTE | ~2023-01-10 | US_ITS ---
EXAMINATION: US VENOUS ULTRASOUND WITH DOPPLER LOWER EXTREMITY, RIGHT CLINICAL INFORMATION: Right ankle swelling. Question DVT. COMPARISON: 01/11/2007 TECHNIQUE: Ultrasound of the deep veins is performed from the hip to the calf with compression sonography and color and pulse Doppler assessment. Spectral analysis with color-flow imaging is performed. FINDINGS: There is normal venous compression and respiratory variation and augmented flow. The visualized common femoral vein, superficial femoral vein, profunda femoral vein, popliteal vein, and the trifurcation region shows no evidence of deep venous thrombosis. There is no significant popliteal fossa cyst. Mild subcutaneous edema. If the patient's symptoms persist, followup ultrasound in 5 days 7 days might be of value to exclude proximal propagation from a non-visualized calf vein. US/US venous duplex LE RT IMPRESSION: No DVT demonstrated in the right lower extremity.
--- NOTE | ~2023-01-10 | XR_ITS ---
X-RAY RIGHT ANKLE X-RAY RIGHT FOOT CLINICAL HISTORY: Swelling, pain. COMPARISON: No relevant prior studies are available for comparison. TECHNIQUE: 2 views of the right ankle. 3 views of the right foot. FINDINGS: Age indeterminate spiral fracture of the distal tibia with mild displacement and minimal impaction. Partial ankylosis with significant subcortical sclerosis and subchondral cystic changes seen in the tibiotalar joint. Circumferential soft tissue thickening around the ankle. No acute fractures or malalignment in the foot. Mild multifocal degenerative osteophytes of the foot. XR/XR foot RT min 3V IMPRESSION: 1. Age-indeterminate spiral fracture of the distal tibia. 2. Partial ankylosis of the tibiotalar joint with extensive subcortical sclerosis and subchondral cystic changes of the adjacent tibia and talus. Findings could be associated with advance osteoarthritis, however associated fractures or infection is difficult to exclude. If clinically deemed appropriate further evaluation with MRI could be obtained.
--- NOTE | ~2023-01-10 | XR_ITS ---
X-RAY RIGHT ANKLE X-RAY RIGHT FOOT CLINICAL HISTORY: Swelling, pain. COMPARISON: No relevant prior studies are available for comparison. TECHNIQUE: 2 views of the right ankle. 3 views of the right foot. FINDINGS: Age indeterminate spiral fracture of the distal tibia with mild displacement and minimal impaction. Partial ankylosis with significant subcortical sclerosis and subchondral cystic changes seen in the tibiotalar joint. Circumferential soft tissue thickening around the ankle. No acute fractures or malalignment in the foot. Mild multifocal degenerative osteophytes of the foot. XR/XR ankle RT min 3V IMPRESSION: 1. Age-indeterminate spiral fracture of the distal tibia. 2. Partial ankylosis of the tibiotalar joint with extensive subcortical sclerosis and subchondral cystic changes of the adjacent tibia and talus. Findings could be associated with advance osteoarthritis, however associated fractures or infection is difficult to exclude. If clinically deemed appropriate further evaluation with MRI could be obtained.
--- NOTE | 2023-01-10 17:51 | ED.LOWEXIN ---
HPI - Extremity Injury (Lower) General Chief Complaint: Extremity Injury, Lower Stated Complaint: fractured ankle? Time Seen by Provider: 01/10/23 19:49 Source: patient Mode of arrival: ambulatory Limitations: no limitations History of Present Illness HPI Narrative: Patient with history of COPD ( oxygen dependent), right tibia fracture in the past, severe osteoarthritis, and peripheral vascular disease presents to the ED for right ankle pain and swelling. patient states having this intermittently for at least 20 years since facturing tibial 20 years ago. patient denies any recent trauma, leg swelling, calf pain, fever, or chills. patient admits to severe arthritis of ankle. Patient states no chest pain or shortness of breath Related Data Home Medications Medication Instructions Recorded Confirmed albuterol sulfate 2.5 mg/3 mL 2.5 mg inhalation QID PRN Wheezing 08/25/20 11/15/22 (0.083 %) solution for nebulization buprenorphine 8 mg-naloxone 2 mg 15 mg sublingual DAILY 10/29/22 11/15/22 sublingual film clonazepam 0.5 mg tablet 0.25 mg PO BID 10/29/22 11/15/22 Previous Rx's Medication Instructions Recorded tiotropium bromide 18 mcg capsule 1 cap inhalation DAILY 90 days #90 05/15/20 with inhalation device (Spiriva inhalations with HandiHaler) Walker with wheels and baske, #1 ea 05/04/21 seat, and break albuterol sulfate 90 mcg/actuation 2 puff PO Q4-6H PRN Wheezing #8.5 10/29/22 aerosol inhaler (ProAir HFA) grams clopidogrel 75 mg tablet (Plavix) 75 mg PO DAILY bilateral leg 10/29/22 stents 14 days #14 tabs gabapentin 100 mg capsule 100 mg PO TID #42 caps 10/29/22 hydroxyzine HCl 25 mg tablet 25 mg PO BID 14 days #28 tabs 10/29/22 sertraline 100 mg tablet 100 mg PO DAILY 90 days #90 tabs 11/15/22 budesonide-formoterol HFA 160 2 puff inhalation Q12H #10.2 grams 12/06/22 mcg-4.5 mcg/actuation aerosol inhaler (Symbicort) levothyroxine 125 mcg tablet 125 mcg PO DAILY 30 days #30 tabs 12/06/22 lisinopril 20 mg tablet 20 mg PO DAILY 30 days #30 tabs 12/23/22 acetaminophen 325 mg capsule 325 mg PO QID PRN pain 7 days #28 01/10/23 caps prednisone 20 mg tablet 40 mg PO DAILY 5 days #10 tabs 01/10/23 Allergies Allergy/AdvReac Type Severity Reaction Status Date / Time codeine Allergy Unknown hives Verified 01/10/23 17:52 Review of Systems Review of Systems: Right ankle pain Yes all other systems are reviewed and are negative [facility] Past Medical History Medical History COPD, severe Depression, major, recurrent Hypertension, essential O2 dependent Surgical History Amputated toe History of appendectomy History of surgery Hx of cholecystectomy Family History Family History Father No problems noted. Mother Stomach cancer Brother No problems noted. Brother No problems noted. Brother No problems noted. Brother No problems noted. Brother No problems noted. Brother No problems noted. Sister No problems noted. Sister No problems noted. Sister No problems noted. Sister No problems noted. Social History Social History Housing: Apartment Patient Tobacco Use Status: Current everyday Tobacco user Tobacco use type: Cigarette Cigarettes Per Day: 3 e-Cigarette/Vaping Use: Never Used Advance Directives: No Advance Directives Information Provided: No Current occupational status: retired and disabled Cognitive needs: No Hearing needs: No Vision needs: No Physical Exam Vital Signs: Vital Signs: Last Vital Signs Temp 98 F 01/10/23 17:52 Pulse 78 01/10/23 17:52 Resp 19 01/10/23 17:52 BP 127/69 01/10/23 17:52 Pulse Ox 95 01/10/23 17:52 O2 Del Method Nasal Cannula 01/10/23 17:52 Oxygen Flow Rate 3 01/10/23 17:52 BMI result Body Mass Index 17.9 Const: General: cooperative, healthy appearing, comfortable, no acute distress, well developed, alert, awake and Physically active Orientation/consciousness: oriented to person, oriented to place, oriented to time and patient oriented x3 HEENT: Head: Yes normal to inspection, Yes No palpable skull fracture present, Yes normocephalic, Yes atraumatic and No abrasion Eyes: General: appearance normal, both eyes and all related structures Neck: Neck: Yes normal visual inspection, Yes full ROM, Yes no lymphadenopathy, Yes no meningeal signs, Yes trachea midline, Yes supple, No anterior neck swelling and No tender Chest: Chest palpation & inspection: normal inspection of the chest and normal palpation of entire chest wall Resp: Effort & Inspection: normal respiratory effort and able to speak in complete sentences Auscultation: clear to auscultation bilaterally Cardio: Jugular venous distension: no JVD Heart sounds: S1 normal heart sound present and S2 normal heart sound present GI: Inspection: Yes normal to inspection and No abdominal wall ecchymosis Palpation (GI): Soft to palpation, not firm, nontender, no guarding and not rigid : General: No CVA tenderness and Yes no CVA tenderness Back/Spine/Pelvis: Back: no CVA tenderness, No CVA tenderness and No back tenderness Skin: General skin exam: no rashes or lesions noted and elasticity normal Neuro: General: oriented to person, oriented to place, oriented to time, patient oriented x3, gait normal, tone normal, moves all extremities, Normal light touch and pain sensation, no meningeal signs, no focal motor deficits, CN's II-XI intact bilaterally and normal sensation to monofilament Extrem: General: Yes normal to inspection and Yes full ROM Ankle/foot/toe images: 1. Positive for tenderness and swelling. Patient states this is chronic. Negative for warmth. normal temperature Pedal pulses of foot intact. Patient has stent placed an extremity. Negative for redness. Not suspecting septic joint. Foot is not cold 2. Positive for tenderness and swelling. Patient states this is chronic. Negative for warmth. NOrmal temperature Pedal pulses of foot intact. Patient has stent placed an extremity. Negative for redness. Not suspecting septic joint. Foot is not cold Psych: Appearance: grossly normal, well kempt and not disheveled Course Course Course Narrative: RME - 67 yo female with history of HTN, anxiety, PVD, severe COPD on 2L NXC who presents to the ER for evaluation of right ankle & foot pain and swelling after cleaning yesterday and walking on it a lot. She denies any twisting or specific injury that she can recall. She has swelling of the lateral right ankle and tenderness throughout her entire foot. Foot is warm. Plan: X-rays of the ankle and foot. Reevaluation(s) Reevaluation #1: Patient call were negative results of ultrasound. Medical Decision Making Medical Decision Making [facility] Narrative: 67-year-old female with history of COPD, peripheral vascular disease, right leg tibia fracture, presents to the ED for right ankle swelling and pain. Patient denies any recent trauma, leg swelling, calf pain, chest pain, shortness of breath, fever, redness, or chills. Foot/ankle/extremity is normal temperature. Negative for erythema, bluish black discoloration, or coolness. Pedal pulses intact. Patient has stent in that leg in the past as per patient. Not suspecting compartment syndrome or arterial occlusion. X-ray shows severe arthritis of x-ray which can cause swelling and pain ultrasound was ordered to rule out DVT. Not suspecting osteomyelitis/cellulitis. Patient does not want to wait for ultrasound results. Patient agreeable to sign out AMA but call with ultrasound results. Not suspecting septic joint. Differential Diagnosis Differential Diagnoses: The differential diagnosis associated with the presentation includes (Fracture, compartment syndrome, arthritis, septic joint, DVT, arterial occlusion.) Independent Interpretation I performed an independent interpretation of an: Plain X-Ray and Ultrasound Radiology Impression Discussion of test interpretation with radiology: I have reviewed the radiologist's reading. Prescription Management I considered prescription management with: Pain Medication Discharge Plan Discharge Clinical Impression: Arthritis of ankle joint, Swelling of joint, ankle, right Patient Disposition: Left Against Medical Advice Instructions: Osteoarthritis (ED), Swollen Ankle Joint (ED) Additional Instructions: X-ray shows severe arthritis again ankle joint which can cause swelling and pain. presently not suspecting any infection of ankle joint. You are leaving before ultrasound result of leg to make sure you not having a blood clot. You will be called with results of ultrasound. Take Tylenol for pain. You will be discharged with steroids. Return to the ED immediately for any worsening pain, worsening swelling, redness, hotness, fever, chills, red streaks, chest pain, shortness of breath, or any other concerning symptoms Prescriptions: New prednisone 20 mg tablet 40 mg PO DAILY 5 Days Qty: 10 0RF acetaminophen 325 mg capsule 325 mg PO QID PRN (Reason: pain) 7 Days Qty: 28 0RF No Action Spiriva with HandiHaler 18 mcg capsule, w/inhalation device 1 cap inhalation DAILY 90 Days Qty: 90 3RF Rx Instructions: puncture 1 cap using device; one dose = 2 inhalations albuterol sulfate 2.5 mg /3 mL (0.083 %) solution for nebulization 2.5 mg inhalation QID PRN (Reason: Wheezing) (DME) Walker with wheels and baske, seat, and break See Rx Instructions .Route .MEDSUPPLY Qty: 1 0RF Rx Instructions: Walker with wheels, break, seat and basket budesonide-formoterol [Symbicort] 160-4.5 mcg/actuation HFA aerosol inhaler 2 puff inhalation Q12H Qty: 10.2 0RF levothyroxine 125 mcg tablet 125 mcg PO DAILY 30 Days Qty: 30 2RF lisinopril 20 mg tablet 20 mg PO DAILY 30 Days Qty: 30 0RF buprenorphine-naloxone 8-2 mg film 15 mg sublingual DAILY clonazepam 0.5 mg tablet 0.25 mg PO BID albuterol sulfate [ProAir HFA] 90 mcg/actuation HFA aerosol inhaler 2 puff PO Q4-6H PRN (Reason: Wheezing) Qty: 8.5 0RF gabapentin 100 mg capsule 100 mg PO TID Qty: 42 0RF clopidogrel [Plavix] 75 mg tablet 75 mg PO DAILY 14 Days Qty: 14 0RF hydroxyzine HCl 25 mg tablet 25 mg PO BID 14 Days Qty: 28 0RF sertraline 100 mg tablet 100 mg PO DAILY 90 Days Qty: 90 0RF Stand Alone Forms: Against Medical Advice Interventions: ED Discharge Assessment Last Done: 01/10/23 21:33 Discharge Date/Time: 01/10/23 21:39 Print Language: French
[2023-01-10 17:52] VITALS: BP 127/69; PULSE 78; RESP 19; TEMP 36.6; O2SAT 95; BMI 17.9
--- NOTE | 2023-01-10 21:32 | PC.NURSE ---
pt requesting to leave AMA, provider notified, u/s at bedside - pt agreeable to stay for imaging, provider to call pt w results.
== END 2023-01-10 21:39 | disposition left against medical advice (07) ==
PROVIDERS: Emergency Provider Student in an Organized Health Care Education/Training Program; PCP Internal Medicine
DX: M19.071 Primary osteoarthritis, right ankle and foot (principal); M25.471 Effusion, right ankle; M79.671 Pain in right foot; M25.571 Pain in right ankle and joints of right foot; F17.210 Nicotine dependence, cigarettes, uncomplicated
CPT/HCPCS: 73610; 73630; 93971; 99282; 99284

== ENCOUNTER 2023-10-19 17:44 | Emergency (ER) | payer MEDICARE, MEDICAID, SELFPAY ==
--- NOTE | ~2023-10-19 | XR_ITS ---
EXAMINATION: XR ELBOW, LEFT XR HAND AND WRIST, LEFT CLINICAL INFORMATION: Elbow, hand and wrist pain with redness and swelling COMPARISON: None available. TECHNIQUE: AP, lateral, and oblique views of the left elbow. 4 views of the hand and wrist. FINDINGS: The elbow appears unremarkable without fractures, dislocations or effusions. A tiny osteophyte is noted on the coronoid process. Some mild degenerative changes are present at the DIP joints most prominently the second digit. Degenerative changes are seen at the first CMC joint. There is some mild narrowing at the radiocarpal joint. There is chondrocalcinosis with calcification in the triangular ligament. No fractures or dislocations are seen. XR/XR hand wrist LT IMPRESSION: No evidence of an acute osseous injury. Degenerative changes as described above.
--- NOTE | ~2023-10-19 | XR_ITS ---
EXAMINATION: XR ELBOW, LEFT XR HAND AND WRIST, LEFT CLINICAL INFORMATION: Elbow, hand and wrist pain with redness and swelling COMPARISON: None available. TECHNIQUE: AP, lateral, and oblique views of the left elbow. 4 views of the hand and wrist. FINDINGS: The elbow appears unremarkable without fractures, dislocations or effusions. A tiny osteophyte is noted on the coronoid process. Some mild degenerative changes are present at the DIP joints most prominently the second digit. Degenerative changes are seen at the first CMC joint. There is some mild narrowing at the radiocarpal joint. There is chondrocalcinosis with calcification in the triangular ligament. No fractures or dislocations are seen. XR/XR elbow LT 2V IMPRESSION: No evidence of an acute osseous injury. Degenerative changes as described above.
--- NOTE | 2023-10-19 17:49 | ED.GENADULT ---
HPI - General Adult General Chief complaint: Extremity Injury, Upper Stated complaint: arm injury, swollen hand/ wrist Time Seen by Provider: 10/19/23 20:13 Source: patient Mode of arrival: ambulatory Limitations: no limitations History of Present Illness HPI narrative: Patient comes to the emergency room complaining of chronic left elbow and left wrist pain. Patient states about a month ago, patient was rearranging her room, and when she was attempting to get out of bed in the middle of the night, she accidentally hit her left arm against a walker. Patient states that since then she has been having left elbow and the wrist pain. Patient denies any other injuries. Patient denies falling. Related Data Home Medications Medication Instructions Recorded Confirmed albuterol sulfate 2.5 mg/3 mL 2.5 mg inhalation QID PRN Wheezing 08/25/20 11/15/22 (0.083 %) solution for nebulization buprenorphine 8 mg-naloxone 2 mg 15 mg sublingual DAILY 10/29/22 11/15/22 sublingual film clonazepam 0.5 mg tablet 0.25 mg PO BID 10/29/22 11/15/22 Previous Rx's Medication Instructions Recorded tiotropium bromide 18 mcg capsule 1 cap inhalation DAILY 90 days #90 05/15/20 with inhalation device (Spiriva inhalations with HandiHaler) Walker with wheels and baske, #1 ea 05/04/21 seat, and break albuterol sulfate 90 mcg/actuation 2 puff PO Q4-6H PRN Wheezing #8.5 10/29/22 aerosol inhaler (ProAir HFA) grams clopidogrel 75 mg tablet (Plavix) 75 mg PO DAILY bilateral leg 10/29/22 stents 14 days #14 tabs gabapentin 100 mg capsule 100 mg PO TID #42 caps 10/29/22 hydroxyzine HCl 25 mg tablet 25 mg PO BID 14 days #28 tabs 10/29/22 budesonide-formoterol HFA 160 2 puff inhalation Q12H #10.2 grams 12/06/22 mcg-4.5 mcg/actuation aerosol inhaler (Symbicort) acetaminophen 325 mg capsule 325 mg PO QID PRN pain 7 days #28 01/10/23 caps prednisone 20 mg tablet 40 mg (2 x 20 mg) PO DAILY 5 days 01/10/23 #10 tabs sertraline 100 mg tablet 100 mg PO DAILY 90 days #90 tabs 02/28/23 lisinopril 20 mg tablet 20 mg PO DAILY 90 days #90 tabs 04/19/23 levothyroxine 125 mcg tablet 125 mcg PO DAILY 30 days #30 tabs 08/16/23 hydrocortisone 2.5 % topical cream 1 appl topical TID PRN itching #30 10/19/23 grams ibuprofen 600 mg tablet 600 mg PO TID PRN pain #20 tabs 10/19/23 Allergies Allergy/AdvReac Type Severity Reaction Status Date / Time codeine Allergy Unknown hives Verified 01/10/23 17:52 Review of Systems Review of Systems: Constitutional : No Weight loss, No Fever, No Chills, No Night Sweats, No Fatigue, No Malaise ENT/Mouth : No Hearing loss, No Ear Pain, No Nasal Congestion, No Sinus Pain, No Hoarseness, No sore throat, No Rhinorrhea, No Swallowing Difficulty Eyes: No Eye Pain, No Swelling, No Redness, No Foreign Body, No Discharge, No Vision Changes Cardiovascular : No Chest Pain, No SOB, No Dyspnea on Exertion, No Orthopnea, No Edema, No Palpitations Respiratory : No Cough, No Sputum, No Wheezing, No Smoke Exposure, No Dyspnea Gastrointestinal : No Nausea, No Vomiting, No Diarrhea, No Constipation, No abdominal Pain, No Hematochezia, No Melena Genitourinary : no irregular bleeding, No Dysuria, No Urinary Frequency, No Hematuria, No Urinary Incontinence, No Urgency, No Flank Pain, No Urinary Flow Changes, No Hesitancy Musculoskeletal : Complaining of chronic left elbow in the 1st pain Skin : No Skin Lesions, No rash Neuro : No Weakness, No Numbness, No Paresthesias, No Loss of Consciousness, No Dizziness, No Headache Psych : No Anxiety/Panic, No Depression, No SI/HI/AH/VH, No Social Issues, Heme/Lymph: No Bruising, No Bleeding,No Lymphadenopathy Endocrine : No Polyuria, No Polydipsia, No Temperature Intolerance [facility] Past Medical History Medical History Hypertension, essential Depression, major, recurrent O2 dependent COPD, severe Surgical History Amputated toe History of appendectomy History of surgery Hx of cholecystectomy Family History Family History Father No problems noted. Mother Stomach cancer Brother No problems noted. Brother No problems noted. Brother No problems noted. Brother No problems noted. Brother No problems noted. Brother No problems noted. Sister No problems noted. Sister No problems noted. Sister No problems noted. Sister No problems noted. Social History Social History Housing: Apartment Patient Tobacco Use Status: Current everyday Tobacco user Tobacco use type: Cigarette Cigarettes Per Day: 3 e-Cigarette/Vaping Use: Never Used Advance Directives: No Advance Directives Information Provided: No Current occupational status: retired and disabled Cognitive needs: No Hearing needs: No Vision needs: No Physical Exam ED Vital Signs: Vital Signs - 24 hr 10/19/23 17:52 Temperature 98.5 F Pulse Rate 87 Respiratory Rate 24 H Blood Pressure 146/74 H Pulse Oximetry 95 Oxygen Delivery Method Nasal Cannula BMI result Body Mass Index 18.1 Const Other: Appearance: Alert. Oriented X3. No acute distress. Eyes: Pupils equal, round and reactive to light. ENT: Pharynx normal. Neck: Normal inspection. Neck supple. No lymph nodes noted. No crepitus CVS: Normal heart rate and rhythm. Pulses normal. Normal S1 and S2 Respiratory: No respiratory distress. Breath sounds normal. No Wheezing. No rales Abdomen: Soft and nontender. No rigidity. No distention. Skin: Skin warm and dry. Normal skin color. Normal skin turgor. Gallardo scaly rash in the left upper extremity Extremities: No lower extremity edema. No Lacerations. No Rash. Joints in the left arm including shoulder elbow and wrist with her normal limits. No erythema, no swelling, no pain to palpation. Neuro: Oriented X 3. No motor deficit. No sensory deficit. Moving all extremities. No slurred speech. CN 2 through 12 grossly intact Psych: calm, cooperative, normal affect Course Course Course Narrative: This is a rapid medical exam: Additional HPI, ROS, PE not included below will be deferred to primary provider. Patient is a 68-year-old left hand dominant female with history of severe COPD, O2 dependent, HTN, vertigo presenting to the emergency department with complaint of left arm pain, swelling, and redness for the past month. States she had rearranged her room, and when attempting to get out of bed in the middle of the night accidentally hit her left arm against her walker, pain since. Plan: xrays Medical Decision Making Medical Decision Making [facility] Narrative: -my interpretation of x-ray of the left elbow and wrist: No fracture, normal alignment -I discussed the x-ray findings with the patient. -on physical exam, patient had a scaly rash in her left upper arm. Possible psoriasis. Patient states it is very itchy. Differential Diagnosis Differential Diagnoses: The differential diagnosis associated with the presentation includes (Arthritis, contusion, fracture. Psoriasis, dermatitis) Independent Interpretation I performed an independent interpretation of an: Plain X-Ray Radiology Impression Discussion of test interpretation with radiology: I have reviewed the radiologist's reading. Radiologist Impression: No evidence of an acute osseous injury. Degenerative changes as described above. Discharge Plan Discharge Clinical Impression: Chronic joint pain, Psoriasis Patient Disposition: Home, Self-Care Instructions: Psoriasis (ED), Arthralgia (ED) Additional Instructions: Please follow-up with your primary care physician tomorrow. If you have any worsening or new symptoms, please return to the emergency room or call 911 Prescriptions: New ibuprofen 600 mg tablet 600 mg PO TID PRN (Reason: pain) Qty: 20 0RF hydrocortisone 2.5 % cream 1 appl topical TID PRN (Reason: itching) Qty: 30 0RF No Action Spiriva with HandiHaler 18 mcg capsule, w/inhalation device 1 cap inhalation DAILY 90 Days Qty: 90 3RF Rx Instructions: puncture 1 cap using device; one dose = 2 inhalations albuterol sulfate 2.5 mg /3 mL (0.083 %) solution for nebulization 2.5 mg inhalation QID PRN (Reason: Wheezing) (DME) Walker with wheels and baske, seat, and break See Rx Instructions .Route .MEDSUPPLY Qty: 1 0RF Rx Instructions: Walker with wheels, break, seat and basket budesonide-formoterol [Symbicort] 160-4.5 mcg/actuation HFA aerosol inhaler 2 puff inhalation Q12H Qty: 10.2 0RF sertraline 100 mg tablet 100 mg PO DAILY 90 Days Qty: 90 0RF lisinopril 20 mg tablet 20 mg PO DAILY 90 Days Qty: 90 0RF levothyroxine 125 mcg tablet 125 mcg PO DAILY 30 Days Qty: 30 2RF prednisone 20 mg tablet 40 mg PO DAILY 5 Days Qty: 10 0RF acetaminophen 325 mg capsule 325 mg PO QID PRN (Reason: pain) 7 Days Qty: 28 0RF buprenorphine-naloxone 8-2 mg film 15 mg sublingual DAILY clonazepam 0.5 mg tablet 0.25 mg PO BID albuterol sulfate [ProAir HFA] 90 mcg/actuation HFA aerosol inhaler 2 puff PO Q4-6H PRN (Reason: Wheezing) Qty: 8.5 0RF gabapentin 100 mg capsule 100 mg PO TID Qty: 42 0RF clopidogrel [Plavix] 75 mg tablet 75 mg PO DAILY 14 Days Qty: 14 0RF hydroxyzine HCl 25 mg tablet 25 mg PO BID 14 Days Qty: 28 0RF
[2023-10-19 17:52] VITALS: BP 146/74; PULSE 87; RESP 24; TEMP 36.9; O2SAT 95; BMI 18.1
== END 2023-10-19 20:39 | disposition home or self-care (01) ==
PROVIDERS: Emergency Provider Emergency Medicine; PCP Internal Medicine
DX: M25.532 Pain in left wrist (principal); M79.642 Pain in left hand; M79.641 Pain in right hand; Z79.899 Other long term (current) drug therapy
CPT/HCPCS: 73070; 73110; 73130; 99282; 99283

== ENCOUNTER 2024-01-05 14:09 | Outpatient (AMB) | payer MEDICARE, MEDICAID, SELFPAY ==
--- NOTE | 2024-01-05 14:26 | MHC.PC.OV ---
Vital Signs 01/05/24 14:28 Height 5 ft 3 in Weight 99 lb 2 oz BMI 17.6 BP 130/90 H Blood Pressure Location Rt brachial Position Sitting Pulse 82 Pulse Source Pulse Oximeter Pulse Oximetry (%) 87 L Oxygen Delivery Method Nasal Cannula Intake Visit Reasons: PE Allergies codeine Allergy (Unknown, Verified 01/05/24 14:29) hives NSAIDS (Non-Steroidal Anti-Inflamma Adverse Reaction (Mild, Verified 01/05/24 14:51) On blood thinners Medication List - Last Reconciled 01/05/24 by Eddie Watkins MD acetaminophen 325 mg PO QID PRN 7 days albuterol sulfate 2.5 mg inhalation QID PRN albuterol sulfate 90 mcg/actuation (ProAir HFA) 2 puffs PO Q4-6H PRN budesonide-formoterol 160-4.5 mcg/actuation (Symbicort) 2 puffs inhalation Q12H buprenorphine-naloxone 8-2 mg 15 mg sublingual DAILY clonazepam 0.25 mg PO BID clopidogrel (Plavix) 75 mg PO DAILY 14 days lmtvwhhkxnb-wixczklyj-lcvymgdv 200-62.5-25 mcg (Trelegy Ellipta) 1 ea inhalation DAILY gabapentin 100 mg PO TID hydrocortisone 2.5% 1 appl topical TID PRN hydroxyzine HCl 25 mg PO BID 14 days ibuprofen 600 mg PO TID PRN levothyroxine 125 mcg PO DAILY 30 days lisinopril 20 mg PO DAILY 90 days sertraline 100 mg PO DAILY 90 days [Walker with wheels and baske, seat, and break Walker with wheels, break, seat and basket] Tobacco use date assessed: 01/05/24 Fall risk assessment: No Falls in past year Last assessed Fall Risk: 01/05/24 Dental Screening Dental Screen Date: 01/05/24 Did you have a dental visit in the last 12 months?: No Did you have a dental problem in the last 6 months where you did not have access to dental care?: No Was dental information given to patient?: No HPI PE HPI Details Patient is 68-year-old female who has not been seen in over a year came today for follow-up appointment Patient have a history of severe COPD, oxygen dependent, seeing Dr. DOMINGO [facility] History of hypertension, history of severe depression seeing a psychiatrist all psychiatric medications through them Hypothyroidism, taking levothyroxine 125 mcg but has not taken her medication in past few days as she ran out and since she was not seen in 1 year medication refill was not provided Hypertension: Patient was on lisinopril 20 mg however she has not taken that medication as well, blood pressure is 130/90 I am reducing the dose to 10 mg I am stopping her ibuprofen as patient is on clopidogrel due to peripheral vascular disease, refill sent She may take Tylenol for arthritic pain All inhalers are through camp recreation specialist And all psychiatric medications are through Psychiatry. Labs are needed today. Patient has developed urine incontinence, patient says that every time she coughs she is leaking urine Which has been happening for a while but has gotten worse in past 2 months She is using pads but can not afford to buy them anymore We will see if we can have her insurance cover that for her. She has a BMI of 17.6 patient is underweight, due to severe COPD patient has no appetite She is requesting nutritional supplement, we will sent script for boost after lab reports available Follow-up 4 months [facility] Medical History Hypertension, essential Depression, major, recurrent O2 dependent COPD, severe Surgical History History of surgery Amputated toe Hx of cholecystectomy History of appendectomy Family History Father No problems noted. Mother Stomach cancer Brother No problems noted. Brother No problems noted. Brother No problems noted. Brother No problems noted. Brother No problems noted. Brother No problems noted. Sister No problems noted. Sister No problems noted. Sister No problems noted. Sister No problems noted. Social History Housing: Apartment Patient Tobacco Use Status: Current everyday Tobacco user Tobacco use type: Cigarette Cigarettes Per Day: 3 e-Cigarette/Vaping Use: Never Used Current occupational status: retired and disabled Cognitive needs: No Hearing needs: No Vision needs: No Questionnaire PHQ-9 Over the last 2 weeks, how often have you been bothered by any of the following problems? 1. Little interest or pleasure in doing things: not at all 2. Feeling down, depressed, or hopeless: not at all 3. Trouble falling or staying asleep, or sleeping too much: not at all 4. Feeling tired or having little energy: not at all 5. Poor appetite or overeating: nearly every day 6. Feeling bad about yourself - or that you are a failure or have let yourself or your family down: nearly every day 7. Trouble concentrating on things, such as reading the newspaper or watching television: not at all 8. Moving or speaking so slowly that other people could have noticed. Or the opposite - being so fidgety or restless that you have been moving around a lot more than usual: not at all 9. Thoughts that you would be better off or of hurting yourself in some way: not at all Total score: 6 Depression Screening Interpretation: Negative Depression Screening Done: Yes 70567 - PHQ-9 Billing: Yes Source: Developed by Drs. Rory Torres, Lara Moncada, Cem Santa and colleagues, with an educational thang from [employer]. Thrive Questionnaire Date Thrive assessed: 04/09/21 AUDIT C Alcohol Use Questionnaire (AUDIT-C) 1. How often do you have a drink containing alcohol?: Never 3. How often do you have six or more drinks on one occasion?: Never Total Score: 0 Score Reviewed/Action Taken: No Review of Systems Const Denies chills and Denies fever(s) ENT Denies epistaxis and Denies nasal discharge Card Denies chest pain Resp Denies hemoptysis GI Denies diarrhea and Denies nausea Skin/Breast Denies rash Neuro Reports no additional complaints Psych Reports no additional complaints Endo Reports no additional complaints Physical exam (Primary Care) Vital Signs: Last Vital Signs Pulse 82 01/05/24 14:28 BP 130/90 H 01/05/24 14:28 Pulse Ox 87 L 01/05/24 14:28 Oxygen Delivery Method Nasal Cannula 01/05/24 14:28 BMI result Body Mass Index 17.6 Tobacco/Smoking Status: Tobacco use Status Tobacco use date assessed 01/05/24 01/05/24 14:32 Patient Tobacco Use Status Current everyday Tobacco 01/05/24 14:27 Tobacco use type Cigarette 01/05/24 14:27 e-Cigarette/Vaping Use Never Used 01/05/24 14:27 Depression Screening Interpretation: Negative Thrive Assessment: Date of Thrive Assessment Date Thrive assessed 04/09/21 01/05/24 14:27 Const General: cooperative, comfortable and no acute distress Orientation/consciousness: patient oriented x3 HENMT Other: Oxygen cannula in nose, mild respiratory distress which is a baseline for the patient Head: Yes normocephalic Eyes General: appearance normal, both eyes and all related structures Neck Neck: Yes supple Resp Effort & Inspection: no cough and no stridor Cardio Rhythm: regular rhythm Heart sounds: S1 normal heart sound present and S2 normal heart sound present Skin General skin exam: turgor normal Neuro General: patient oriented x3, tone normal and moves all extremities Extrem Right lower extremity: no edema Left lower extremity: no edema Assessment and Plan Assessment & Plan (1) COPD, severe: Code(s): J44.9 - Chronic obstructive pulmonary disease, unspecified (2) Chronic respiratory failure with hypoxia: Code(s): J96.11 - Chronic respiratory failure with hypoxia (3) O2 dependent: Code(s): Z99.81 - Dependence on supplemental oxygen (4) Depression, major, recurrent: Code(s): F33.9 - Major depressive disorder, recurrent, unspecified Qualifiers: Active/Remission status: in partial remission Qualified Code(s): F33.41 - Major depressive disorder, recurrent, in partial remission (5) Hypertension, essential: Code(s): I10 - Essential (primary) hypertension (6) Low hemoglobin: Code(s): D64.9 - Anemia, unspecified (7) Other specified hypothyroidism: Code(s): E03.8 - Other specified hypothyroidism (8) Difficulty sleeping: Code(s): G47.9 - Sleep disorder, unspecified (9) Peripheral vascular occlusive disease: Code(s): I73.9 - Peripheral vascular disease, unspecified (10) Neuropathy: Code(s): G62.9 - Polyneuropathy, unspecified (11) Failure to thrive: Qualifiers: Failure to thrive age range: in adult Qualified Code(s): R62.7 - Adult failure to thrive (12) Urine incontinence: Code(s): R32 - Unspecified urinary incontinence Qualifiers: Urinary Incontinence type: stress incontinence Qualified Code(s): N39.3 - Stress incontinence (female) (male) Plan Patient is 68-year-old female who has not been seen in over a year came today for follow-up appointment Patient have a history of severe COPD, oxygen dependent, seeing Dr. DOMINGO [facility] [employer] specialist History of hypertension, history of severe depression seeing a psychiatrist all psychiatric medications through them Hypothyroidism, taking levothyroxine 125 mcg but has not taken her medication in past few days as she ran out and since she was not seen in 1 year medication refill was not provided Hypertension: Patient was on lisinopril 20 mg however she has not taken that medication as well, blood pressure is 130/90 I am reducing the dose to 10 mg I am stopping her ibuprofen as patient is on clopidogrel due to peripheral vascular disease, refill sent She may take Tylenol for arthritic pain All inhalers are through [facility] [employer] specialist And all psychiatric medications are through Psychiatry. Labs are needed today. Patient has developed urine incontinence, patient says that every time she coughs she is leaking urine Which has been happening for a while but has gotten worse in past 2 months She is using pads but can not afford to buy them anymore We will see if we can have her insurance cover that for her. She has a BMI of 17.6 patient is underweight, due to severe COPD patient has no appetite She is requesting nutritional supplement, we will sent script for boost after lab reports available Follow-up 4 months More than 50 minute in care of this patient including [id number], reviewing chart, sending medications Ordering labs, coordination of care Orders: Orders TSH reflex Free T4 Today D64.9 - Anemia, unspecified, E03.8 - Other specified hypothyroidism, F33.41 - Major depressive disorder, recurrent, in partial remission, G47.9 - Sleep disorder, unspecified, G62.9 - Polyneuropathy, unspecified, I10 - Essential (primary) hypertension, I73.9 - Peripheral vascular disease, unspecified, J44.9 - Chronic obstructive pulmonary disease, unspecified, Z99.81 - Dependence on supplemental oxygen UA CC w/rflx Micro + Cult Today R32 - Unspecified urinary incontinence Complete Blood Count Auto Diff Today D64.9 - Anemia, unspecified, E03.8 - Other specified hypothyroidism, F33.41 - Major depressive disorder, recurrent, in partial remission, G47.9 - Sleep disorder, unspecified, G62.9 - Polyneuropathy, unspecified, I10 - Essential (primary) hypertension, I73.9 - Peripheral vascular disease, unspecified, J44.9 - Chronic obstructive pulmonary disease, unspecified, Z99.81 - Dependence on supplemental oxygen Comprehensive Met. Panel Today D64.9 - Anemia, unspecified, E03.8 - Other specified hypothyroidism, F33.41 - Major depressive disorder, recurrent, in partial remission, G47.9 - Sleep disorder, unspecified, G62.9 - Polyneuropathy, unspecified, I10 - Essential (primary) hypertension, I73.9 - Peripheral vascular disease, unspecified, J44.9 - Chronic obstructive pulmonary disease, unspecified, Z99.81 - Dependence on supplemental oxygen Medications: Changed From clopidogrel (Plavix) 75 mg PO DAILY 14 days 14 tabs 0RF bilateral leg stents I73.9 - Peripheral vascular disease, unspecified To clopidogrel (Plavix) 75 mg PO DAILY 90 tabs 1RF bilateral leg stents 90 days I73.9 - Peripheral vascular disease, unspecified From levothyroxine 125 mcg PO DAILY 30 days 30 tabs 0RF E03.8 - Other specified hypothyroidism To levothyroxine 125 mcg PO DAILY 90 tabs 1RF 90 days E03.8 - Other specified hypothyroidism From lisinopril 20 mg PO DAILY 90 days 90 tabs 0RF I10 - Essential (primary) hypertension To lisinopril 10 mg PO DAILY 90 tabs 1RF 90 days I10 - Essential (primary) hypertension Discontinued ibuprofen Discontinued Reason: Doctor's Order 600 mg PO TID PRN 20 tabs 0RF pain Coding Level of Care Code Est Pt Level 5 (55955) Complex EM visit Add On G2211 Diagnoses COPD, severe J44.9 Chronic respiratory failure with hypoxia J96.11 O2 dependent Z99.81 Recurrent major depressive disorder, in partial remission F33.41 Active/Remission status: in partial remission Hypertension, essential I10 Low hemoglobin D64.9 Other specified hypothyroidism E03.8 Difficulty sleeping G47.9 Peripheral vascular occlusive disease I73.9 Neuropathy G62.9 Failure to thrive in adult R62.7 Failure to thrive age range: in adult Stress incontinence of urine N39.3 Urinary Incontinence type: stress incontinence
[2024-01-05 14:28] VITALS: BP 130/90; PULSE 82; O2SAT 87; BMI 17.6
== END 2024-01-05 14:51 | disposition home or self-care (01) ==
PROVIDERS: PCP Internal Medicine; Visit Provider Internal Medicine
DX: J44.9 Chronic obstructive pulmonary disease, unspecified (principal); J96.11 Chronic respiratory failure with hypoxia; F33.41 Major depressive disorder, recurrent, in partial remission; I73.9 Peripheral vascular disease, unspecified; Z99.81 Dependence on supplemental oxygen; I10 Essential (primary) hypertension; D64.9 Anemia, unspecified; E03.8 Other specified hypothyroidism; G47.9 Sleep disorder, unspecified; G62.9 Polyneuropathy, unspecified; R62.7 Adult failure to thrive; N39.3 Stress incontinence (female) (male)
CPT/HCPCS: 99215; G2211

== ENCOUNTER 2024-01-05 14:57 | Outpatient (REF) | payer MEDICARE, MEDICAID, SELFPAY ==
[2024-01-05 16:03] LABS: MANUAL DIFF FLAG NO
[2024-01-05 16:31] LABS: Basophils Absolute Auto 0.1 X10*3/uL (0.0-0.2); Basophils Percent Auto 0.8 % (0-2); Eosinophils Absolute Auto 0.1 X10*3/uL (0.0-0.4); Eosinophils Percent Auto 1.1 % (0-4); Hematocrit 43.5 % (37.0-47.0); Hemoglobin 13.7 g/dl (12.0-16.0); Imm Gran Abs Auto 0.02 X10*3/uL (0.00-0.03); Imm Gran Pct Auto 0.3 % (0.0-0.4); Lymphocytes Absolute Auto 1.3 X10*3/uL (1.2-4.9); Lymphocytes Percent Auto 20.5 % (20-40); Mean Corpuscular HGB Conc 31.5 g/dl (31.0-35.0); Mean Corpuscular Hemoglobin 30.3 pg (27.0-33.0); Mean Corpuscular Volume 96.2 fL (80.0-98.0); Mean Platelet Volume 10.8 fL (9.4-12.3); Monocytes Absolute Auto 0.5 X10*3/uL (0.1-1.2); Monocytes Percent Auto 8.5 % (2-11); Neutrophils Absolute Auto 4.4 x10*3/uL (2.0-8.3); Neutrophils Percent Auto 68.8 % (45-73); Platelet Count 169 X10*3/uL (160-400); Red Blood Count 4.52 X10*6/uL (4.20-5.50); White Blood Count 6.3 X10*3/uL (4.8-10.8)
[2024-01-05 16:46] LABS: Alanine Aminotransferase 43 U/L (0-31); Albumin Level 4.2 g/dL (3.5-5.0); Alkaline Phosphatase 144 U/L (39-117); Anion Gap 11 (12-20); Aspartate Amino Transferase 57 U/L (5-31); Bilirubin Total 0.4 mg/dL (0.0-1.0); Blood Urea Nitrogen 7 mg/dL (9-16); Calcium 9.8 mg/dL (8.4-10.2); Carbon Dioxide 39 mmol/L (22-29); Chloride 96 mmol/L (96-108); Estimated Glomerular Filt Rate > 60; Glucose Random 68 mg/dL (60-115); Potassium 3.9 mmol/L (3.3-5.1); Sodium 142 mmol/L (135-145); Total Protein 7.2 g/dL (6.5-8.0)
== END 2024-01-05 14:58 | disposition home or self-care (01) ==
LOC: HO.HMGCLDS 14:57
PROVIDERS: PCP Internal Medicine; Visit Provider Internal Medicine
DX: J44.9 Chronic obstructive pulmonary disease, unspecified (principal); G62.9 Polyneuropathy, unspecified; I73.9 Peripheral vascular disease, unspecified; G47.9 Sleep disorder, unspecified; E03.8 Other specified hypothyroidism; D64.9 Anemia, unspecified; I10 Essential (primary) hypertension; F33.41 Major depressive disorder, recurrent, in partial remission; Z99.81 Dependence on supplemental oxygen
CPT/HCPCS: 36415; 80053; 84443; 85025

== ENCOUNTER 2024-06-15 17:42 | Inpatient (IN) | payer MEDICARE, MEDICAID, SELFPAY ==
--- NOTE | ~2024-06-15 | XR_ITS ---
EXAMINATION: XR CHEST CLINICAL INFORMATION: Shortness of breath, COPD COMPARISON: Chest x-ray on 01/28/2022 TECHNIQUE: Frontal view of the chest was obtained. FINDINGS: The cardiac silhouette is normal. There is moderate chronic interstitial disease. Is increased right suprahilar opacities. There are no pleural effusions or pneumothoraces. The bones and soft tissues are unremarkable for the patient's age. XR/XR chest 1V IMPRESSION: Increased right suprahilar opacities may be infectious/inflammatory in etiology. Electronically signed by: Jennifer Apodaca MD 06/15/2024 06:30 PM EDT
[2024-06-15 17:53] VITALS: BP 153/80; BP 155/96; PULSE 75; PULSE 80; RESP 20; TEMP 36.6; O2SAT 93; BMI 16.9
--- NOTE | 2024-06-15 17:54 | ECG_ITS ---
Test Reason : SOB Blood Pressure : / mmHG Vent. Rate : 062 BPM Atrial Rate : 062 BPM P-R Int : 104 ms QRS Dur : 076 ms QT Int : 390 ms P-R-T Axes : 071 068 064 degrees QTc Int : 395 ms Sinus rhythm with sinus arrhythmia with short DE Otherwise normal ECG When compared with ECG of 28-JAN-2022 09:41, No significant change was found Referred By: Norma Brand Electronically Signed By:MARIA ISABEL SY
[2024-06-15 17:59] VITALS: PULSE 112; RESP 22; O2SAT 92
[2024-06-15] MEDS: Albuterol Sulfate 5 MG, Albuterol/Iprat 2.5/0.5MG 3 ML 3 ML INHALE (17:59)
--- NOTE | 2024-06-15 18:07 | ED_ITS ---
HPI - SOB/Dyspnea General Chief Complaint: Dyspnea Stated Complaint: sob dizziness Time Seen by Provider: 06/15/24 17:45 Source: patient and EMS Mode of arrival: EMS Limitations: no limitations History of Present Illness ED Provider: Dr. Norma Brand HPI Narrative: patient comes to the emergency room complaining of shortness of breath. Patient known to have COPD and uses 2 L of oxygen at home. Patient states that lately she has been using up to 4 L, has had worsening cough and increased sputum production. Patient denies fever. Patient states it has been 4 days since her symptoms got worse. Also, per EMS, the patient's daughter voiced her concerns that the patient may be abusing Klonopin. Patient does get Klonopin prescribed but seems that she has been using it more than usual, there was a recent in the family, patient's history recently. Patient denies SI or HI. EMS gave to the patient a nebulization treatment Related Data Home Medications ?Medication ?Instructions ?Recorded ?Confirmed albuterol sulfate 2.5 mg/3 mL 2.5 mg inhalation QID PRN Wheezing 08/25/20 01/05/24 (0.083 %) solution for nebulization buprenorphine 8 mg-naloxone 2 mg 15 mg sublingual DAILY 10/29/22 01/05/24 sublingual film clonazepam 0.5 mg tablet 0.25 mg PO BID 10/29/22 01/05/24 fluticasone fur. 200 mcg-umeclid 1 ea inhalation DAILY 01/05/24 01/05/24 62.5 mcg-vilant 25 mcg inhalat.powder (Trelegy Ellipta) Previous Rx's ?Medication ?Instructions ?Recorded Walker with wheels and baske, #1 ea 05/04/21 seat, and break albuterol sulfate 90 mcg/actuation 2 puff PO Q4-6H PRN Wheezing #8.5 10/29/22 aerosol inhaler (ProAir HFA) grams gabapentin 100 mg capsule 100 mg PO TID #42 caps 10/29/22 hydroxyzine HCl 25 mg tablet 25 mg PO BID 14 days #28 tabs 10/29/22 budesonide-formoterol HFA 160 2 puff inhalation Q12H #10.2 grams 12/06/22 mcg-4.5 mcg/actuation aerosol inhaler (Symbicort) acetaminophen 325 mg capsule 325 mg PO QID PRN pain 7 days #28 01/10/23 caps sertraline 100 mg tablet 100 mg PO DAILY 90 days #90 tabs 02/28/23 hydrocortisone 2.5 % topical cream 1 appl topical TID PRN itching #30 10/19/23 grams clopidogrel 75 mg tablet (Plavix) 75 mg PO DAILY bilateral leg 01/05/24 stents 90 days #90 tabs levothyroxine 125 mcg tablet 125 mcg PO DAILY 90 days #90 tabs 01/05/24 lisinopril 10 mg tablet 10 mg PO DAILY 90 days #90 tabs 01/05/24 food supplemt, lactose-reduced 1 ea PO TID #90 ea 02/07/24 0.04 gram-1 kcal/mL oral liquid (Boost) incontinence pad, liner, disp #96 ea 02/07/24 (Pant Liners, Large pads) Allergies Allergy/AdvReac Type Severity Reaction Status Date / Time codeine Allergy Unknown hives Verified 06/15/24 17:55 NSAIDS (Non-Steroidal AdvReac Mild On blood Verified 06/15/24 17:55 Anti-Inflamma thinners Review of Systems 2 Review of Systems: Constitutional : No Weight loss, No Fever, No Chills, No Night Sweats, No Fatigue, No Malaise ENT/Mouth : No Hearing loss, No Ear Pain, No Nasal Congestion, No Sinus Pain, No Hoarseness, No sore throat, No Rhinorrhea, No Swallowing Difficulty Eyes: No Eye Pain, No Swelling, No Redness, No Foreign Body, No Discharge, No Vision Changes Cardiovascular : No Chest Pain, No SOB, No Dyspnea on Exertion, No Orthopnea, No Edema, No Palpitations Respiratory : complaining of coughing, sputum production, worsening shortness of breath and wheezing Gastrointestinal : No Nausea, No Vomiting, No Diarrhea, No Constipation, No abdominal Pain, No Hematochezia, No Melena Genitourinary : no irregular bleeding, No Dysuria, No Urinary Frequency, No Hematuria, No Urinary Incontinence, No Urgency, No Flank Pain, No Urinary Flow Changes, No Hesitancy Musculoskeletal : No joint pain, No Myalgias, No Joint Swelling Skin : No Skin Lesions, No rash Neuro : No Weakness, No Numbness, No Paresthesias, No Loss of Consciousness, No Dizziness, No Headache Psych : No Anxiety/Panic, No Depression, No SI/HI/AH/VH, No Social Issues, Heme/Lymph: No Bruising, No Bleeding,No Lymphadenopathy Endocrine : No Polyuria, No Polydipsia, No Temperature Intolerance [facility] Past Medical History Medical History Hypertension, essential Depression, major, recurrent O2 dependent COPD, severe Surgical History History of surgery Amputated toe Hx of cholecystectomy History of appendectomy Family History Family History Father No problems noted. Mother Stomach cancer Brother No problems noted. Brother No problems noted. Brother No problems noted. Brother No problems noted. Brother No problems noted. Brother No problems noted. Sister No problems noted. Sister No problems noted. Sister No problems noted. Sister No problems noted. Social History Social History Housing: Apartment Patient Tobacco Use Status: Current everyday Tobacco user Tobacco use type: Cigarette Cigarettes Per Day: 3 e-Cigarette/Vaping Use: Never Used Advance Directives: No Advance Directives Information Provided: No Do you have a plan to hurt others: No Plan Current occupational status: retired and disabled Cognitive needs: No Hearing needs: No Vision needs: No Physical Exam 2 Vital Signs: Vital Signs: Last Vital Signs Temp 98.5 F 06/15/24 19:38 Pulse 67 06/15/24 20:53 Resp 18 06/15/24 20:53 BP 132/108 H 06/15/24 19:38 Pulse Ox 91 L 06/15/24 19:38 O2 Del Method Nasal Cannula 06/15/24 19:38 O2 Flow Rate 2 06/15/24 19:38 Oxygen Flow Rate 2 06/15/24 17:53 BMI result Body Mass Index 16.9 Const: Other: Appearance: Alert. Oriented X3. No acute distress. Eyes: Pupils equal, round and reactive to light. ENT: Pharynx normal. Neck: Normal inspection. Neck supple. No lymph nodes noted. No crepitus CVS: Normal heart rate and rhythm. Pulses normal. Normal S1 and S2 Respiratory: oxygen saturation 92% on 2 L, bilateral wheezing Abdomen: Soft and nontender. No rigidity. No distention. Skin: Skin warm and dry. Normal skin color. Normal skin turgor. Extremities: No lower extremity edema. No Lacerations. No Rash Neuro: Oriented X 3. No motor deficit. No sensory deficit. Moving all extremities. No slurred speech. CN 2 through 12 grossly intact Psych: calm, cooperative, normal affect Course Course Course Narrative: patient receiving Solu-Medrol. Patient just received a breathing treatment in EMS, seems to be breathing more comfortably. Oxygen saturation 92% on room air. Patient receiving IV fluids, and empiric antibiotic treatment with ceftriaxone and azithromycin. It is likely that patient has chronic lung disease exacerbation. Patient does have a significant cough with thick mucus. - All of patient's labs and imaging pending, blood pressure in the 150 systolic, no fever Medications Administered Generic Name Dose Route Start Last Admin Trade Name Freq PRN Reason Stop Dose Admin Albuterol Sulfate 2.5 mg 06/15/24 19:55 06/15/24 20:53 Albuterol Sulfate (0.083%) 2.5 Mg/3 Ml Vial.Neb INHALE 2.5 mg RQ4H WHILE AWAKE BRIDGER Administration Sodium Chloride 3 ml 06/16/24 00:00 06/15/24 21:00 0.9 % Sodium Chloride Flush 3 Ml Syringe IVFLUSH 3 ml QSHIFT BRIDGER Administration Discontinued Medications Generic Name Dose Route Start Last Admin Trade Name Freq PRN Reason Stop Dose Admin Ceftriaxone Sodium 1 gm 06/15/24 18:08 06/15/24 18:35 Ceftriaxone Sodium 1 Gm Vial IVPUSH 06/15/24 18:09 1 gm ONCE ONE Administration Clonazepam 0.5 mg 06/15/24 19:54 06/15/24 21:00 Clonazepam 0.5 Mg Tablet PO 06/15/24 19:55 0.5 mg ONCE STA Administration Albuterol Sulfate 5 mg/ 0 mg 06/15/24 17:53 06/15/24 17:59 Albuterol/Ipratropium 3 ml INHALE 06/15/24 17:54 1 each ONCE ONE Administration Sodium Chloride 1,500 mls @ 999 mls/hr 06/15/24 18:08 06/15/24 21:05 Ns IVCONT 06/15/24 19:38 Infused .Q1H31M ONE Infusion Azithromycin 500 mg/ Sodium 250 mls @ 125 mls/hr 06/15/24 18:08 06/15/24 21:05 Chloride IV 06/15/24 20:07 Infused ONCE ONE Infusion Methylprednisolone Sodium Succinate 125 mg 06/15/24 18:20 06/15/24 18:32 Methylprednisolone Sod Succ 125 Mg/2 Ml Vial IVPUSH 06/15/24 18:21 125 mg ONCE ONE Administration Medical Decision Making Medical Decision Making [facility] Narrative: My interpretation of labs, at baseline hematology and chemistry, blood gases show a pCO2 of 93, however, patient's pH is 7.33, normal and bicarb 41, patient is compensated. - Chest x-ray shows right lower lobe pneumonia. - Patient is otherwise doing well, continues on oxygen. - There is concerned that the patient is not compliant with her home O2. Patient definitely needs O2 at this time especially with pneumonia. - I discussed the above-mentioned with Dr. Galvan from the Medicine team, patient being admitted Differential Diagnosis Differential Diagnoses: The differential diagnosis associated with the presentation includes ( COPD, asthma, pneumonia, viral URI) Admission/Observation Consideration of admission/observation: Escalation of care including admission/observation considered Consult Healthcare Provider Management of the patient was discussed with: Hospitalist Lab Data [facility] Lab Attestation statement: I reviewed the patient's lab results. 06/15/24 18:18 06/15/24 18:18 Labs: Lab Results 06/15/24 06/15/24 Range/Units 18:18 18:31 WBC 7.4 (4.8-10.8) X10*3/uL RBC 4.02 L (4.20-5.50) X10*6/uL Hgb 14.4 (12.0-16.0) g/dl Hct 40.4 (37.0-47.0) % MCV 100.5 H (80.0-98.0) fL MCH 35.8 H (27.0-33.0) pg MCHC 35.6 H (31.0-35.0) g/dl RDW 14.8 (11.0-16.0) % Plt Count 223 D (160-400) X10*3/uL MPV 9.3 L (9.4-12.3) fL Immature Gran % (Auto) 1.2 H (0.0-0.4) % Neut % (Auto) 81.1 H (45-73) % Lymph % (Auto) 10.7 L (20-40) % [place] % (Auto) 5.6 (2-11) % Eos % (Auto) 0.7 (0-4) % Baso % (Auto) 0.7 (0-2) % Lymph # (Auto) 0.8 L (1.2-4.9) X10*3/uL [place] # (Auto) 0.4 (0.1-1.2) X10*3/uL Eos # (Auto) 0.1 (0.0-0.4) X10*3/uL Baso # (Auto) 0.1 (0.0-0.2) X10*3/uL Abs Immat Gran (auto) 0.09 H (0.00-0.03) X10*3/uL Absolute Neuts (auto) 6.0 (2.0-8.3) x10*3/uL Absolute Nucleated RBC 0.000 (0.0-0.012) X10*3/uL Nucleated RBC % (auto) 0.0 (0.0-0.2) /100WBC VBG pH 7.33 (7.32-7.43) VBG pCO2 93 mmHg VBG pO2 38 mmHg VBG HCO3 49 H (22-26) mmol/L VBG O2 Saturation 48.0 % VBG Base Excess 17.4 mmol/L Sodium 139 (135-145) mmol/L Potassium 4.9 D (3.3-5.1) mmol/L Chloride 89 L (96-108) mmol/L Carbon Dioxide 41 H* (22-29) mmol/L Anion Gap 14 (12-20) BUN 20 H (9-16) mg/dL Creatinine 0.68 (0.5-1.4) mg/dL Estim Creat Clear Calc 52.4 Estimated GFR > 60 Random Glucose 88 (60-115) mg/dL Lactic Acid 0.9 (0.5-2.0) mmol/L Calcium 10.1 (8.4-10.2) mg/dL Magnesium 2.0 (1.6-2.6) mg/dL Total Bilirubin 0.5 (0.0-1.0) mg/dL Direct Bilirubin 0.2 (0.0-0.5) mg/dL AST 42 H (5-31) U/L ALT 9 (0-31) U/L Alkaline Phosphatase 95 (39-117) U/L Troponin I High Sens 9.4 (<3.5-17.0) ng/L B-Natriuretic Peptide 184 H (<100) pg/mL Total Protein 8.0 (6.5-8.0) g/dL Albumin 3.8 (3.5-5.0) g/dL TSH 6.41 H (0.32-4.0) uIU/mL Ethyl Alcohol < 10 mg/dL COVID-19 (TIP) Negative (Negative) COVID-19 Clin Com See Note Influenza Type A (MAGALIE) Negative (Negative) Influenza Type B (MAGALIE) Negative (Negative) Influenza A & B Note See Note Independent Interpretation I performed an independent interpretation of an: Plain X-Ray Radiology Impression Discussion of test interpretation with radiology: I have reviewed the radiologist's reading. Radiologist Impression: The cardiac silhouette is normal. There is moderate chronic interstitial disease. Is increased right suprahilar opacities. There are no pleural effusions or pneumothoraces. The bones and soft tissues are unremarkable for the patient's age. XR/XR chest 1V IMPRESSION: Increased right suprahilar opacities may be infectious/inflammatory in etiology. Critical Care Time Critical Care Time Critical Care Time: Yes Total Critical Care Time: 60 Attestation: I have personally provided critical care time. Time includes review of lab data, radiology results, discussion with consultants, and monitoring for potential decompensation. Intervention performed as documented. Discharge Plan Discharge Clinical Impression: Pneumonia Patient Disposition: Admitted As Inpatient Prescriptions: No Action albuterol sulfate 2.5 mg /3 mL (0.083 %) solution for nebulization 2.5 mg inhalation QID PRN (Reason: Wheezing) (DME) Walker with wheels and baske, seat, and break See Rx Instructions .Route .MEDSUPPLY Qty: 1 0RF Rx Instructions: Walker with wheels, break, seat and basket budesonide-formoterol [Symbicort] 160-4.5 mcg/actuation HFA aerosol inhaler 2 puff inhalation Q12H Qty: 10.2 0RF sertraline 100 mg tablet 100 mg PO DAILY 90 Days Qty: 90 0RF Boost 0.04 gram- 1 kcal/mL liquid 1 ea PO TID Qty: 90 5RF (DME) Pant Liners, Large Pad See Rx Instructions .Route Qty: 96 5RF Rx Instructions: Change as needed, up to 3 per day acetaminophen 325 mg capsule 325 mg PO QID PRN (Reason: pain) 7 Days Qty: 28 0RF hydrocortisone 2.5 % cream 1 appl topical TID PRN (Reason: itching) Qty: 30 0RF buprenorphine-naloxone 8-2 mg film 15 mg sublingual DAILY clonazepam 0.5 mg tablet 0.25 mg PO BID albuterol sulfate [ProAir HFA] 90 mcg/actuation HFA aerosol inhaler 2 puff PO Q4-6H PRN (Reason: Wheezing) Qty: 8.5 0RF gabapentin 100 mg capsule 100 mg PO TID Qty: 42 0RF hydroxyzine HCl 25 mg tablet 25 mg PO BID 14 Days Qty: 28 0RF Trelegy Ellipta 200-62.5-25 mcg blister with device 1 ea inhalation DAILY clopidogrel [Plavix] 75 mg tablet 75 mg PO DAILY 90 Days Qty: 90 1RF levothyroxine 125 mcg tablet 125 mcg PO DAILY 90 Days Qty: 90 1RF lisinopril 10 mg tablet 10 mg PO DAILY 90 Days Qty: 90 1RF Print Language: Tongan
[2024-06-15 18:29] LABS: MANUAL DIFF FLAG NO
[2024-06-15 18:32] LABS: Basophils Absolute Auto 0.1 X10*3/uL (0.0-0.2); Basophils Percent Auto 0.7 % (0-2); Eosinophils Absolute Auto 0.1 X10*3/uL (0.0-0.4); Eosinophils Percent Auto 0.7 % (0-4); Hematocrit 40.4 % (37.0-47.0); Hemoglobin 14.4 g/dl (12.0-16.0); Imm Gran Abs Auto 0.09 X10*3/uL (0.00-0.03); Imm Gran Pct Auto 1.2 % (0.0-0.4); Lymphocytes Absolute Auto 0.8 X10*3/uL (1.2-4.9); Lymphocytes Percent Auto 10.7 % (20-40); Mean Corpuscular HGB Conc 35.6 g/dl (31.0-35.0); Mean Corpuscular Hemoglobin 35.8 pg (27.0-33.0); Mean Corpuscular Volume 100.5 fL (80.0-98.0); Mean Platelet Volume 9.3 fL (9.4-12.3); Monocytes Absolute Auto 0.4 X10*3/uL (0.1-1.2); Monocytes Percent Auto 5.6 % (2-11); Neutrophils Percent Auto 81.1 % (45-73); Platelet Count 223 X10*3/uL (160-400); Red Blood Count 4.02 X10*6/uL (4.20-5.50); Red Cell Distribution Width 14.8 % (11.0-16.0); White Blood Count 7.4 X10*3/uL (4.8-10.8)
[2024-06-15] MEDS: methylPREDNISolone Sod Succ 125 MG/2 ML VIAL IVPUSH (18:32)
[2024-06-15] MEDS: 0.9 % Sodium Chloride 1,500 ML 999 ML IVCONT (18:33)
[2024-06-15] MEDS: cefTRIAXone sodium 1 GM VIAL IVPUSH (18:35)
[2024-06-15 18:36] LABS: VBG Base Excess 17.4 mmol/L; VBG HCO3 49 mmol/L (22-26); VBG pCO2 93 mmHg; VBG pH 7.33 (7.32-7.43); VBG pO2 38 mmHg
[2024-06-15 18:38] LABS: Venous Blood Gas Refer to POC result
[2024-06-15] MEDS: Azithromycin 500 MG in 0.9 % Sodium Chloride 250 ML 125 MG IV (18:42)
[2024-06-15 18:46] LABS: Lactic Acid 0.9 mmol/L (0.5-2.0)
[2024-06-15 18:47] LABS: Ethanol < 10 mg/dL
[2024-06-15 18:53] LABS: B Type Natriuretic Peptide 184 pg/mL (<100)
[2024-06-15 18:57] LABS: Troponin-I High Sensitivity 9.4 ng/L (<3.5-17.0)
[2024-06-15 19:04] LABS: Alanine Aminotransferase 9 U/L (0-31); Albumin Level 3.8 g/dL (3.5-5.0); Alkaline Phosphatase 95 U/L (39-117); Anion Gap 14 (12-20); Aspartate Amino Transferase 42 U/L (5-31); Bilirubin Direct 0.2 mg/dL (0.0-0.5); Bilirubin Total 0.5 mg/dL (0.0-1.0); Blood Urea Nitrogen 20 mg/dL (9-16); Calcium 10.1 mg/dL (8.4-10.2); Carbon Dioxide 41 mmol/L (22-29); Chloride 89 mmol/L (96-108); Creatinine Clr Calc Pharmacy 52.4; Estimated Glomerular Filt Rate > 60; Glucose Random 88 mg/dL (60-115); Potassium 4.9 mmol/L (3.3-5.1); Sodium 139 mmol/L (135-145)
[2024-06-15 19:09] LABS: COVID-19 Test Negative (Negative); IDNOW Serial# 58CA691E; IDNOW Serial# 6674DD1D; Influenza A Negative (Negative); Influenza B2 Negative (Negative)
[2024-06-15 19:38] VITALS: BP 132/108; PULSE 89; RESP 19; TEMP 36.9; O2SAT 91
--- NOTE | 2024-06-15 20:12 | P.HPHOSP_ITS ---
History of Present Illness Date of Service: 06/15/24 Attending physician on admission: Sierra Cuellar Chief Complaint: Shortness of breath Gisela Amaya is a 68 years old woman with past medical history significant for COPD on home oxygen 2L/min, depression, anxiety and essential hypertension was brought to the emergency department due to worsening shortness of breath over the last several days associated with productive cough. She denies fever or chills. She also denied chest pain, palpitations, headache, abdominal pain, nausea or vomiting. Patient reported multiple falls. While interviewing her she persistently asking for clonazepam. According to ED triage note granddaughter feels that the patient may be using her home medications. Hallucination was also reported. Denied any suicide ideation. The patient did not report any acute urinary symptoms. She has an ongoing tobacco smoker -last time she smoked was a week ago and smoking 5 cigarettes. Denied alcohol abuse or illicit drug use. In the ED, she was found to have O2 sats of 87%. She is currently on 2 liters/minute of supplemental oxygen satting at 90%. There is also tachypnea and tachycardia. There is no hypotension. Blood workup showed no leukocytosis. Hemoglobin is 14.4 and platelets 223. Venous blood gas showed a pH of 7.33 and pCO2 of 93. HC03 is 49. There are no significant electrolyte imbalances other than hypokalemia of 89. Creatinine is 0.68. There is no lactic acidosis. LFTs are normal except for slight elevation of AST. ETOH is less than 10. COVID-19, influenza and RSV testing is negative. CXR showed increased right suprahilar opacities that may be infectious/inflammatory in etiology. ED tx: DuoNeb, ceftriaxone 1 g IV, Solu-Medrol 125 mg IV, azithromycin 500 mg IV, NS 1.5 L bolus. Review of Systems 2 Review of Systems: All 12 systems were reviewed and normal except as noted in HPI. [facility] Medical History Hypertension, essential Depression, major, recurrent O2 dependent COPD, severe Family History Father No problems noted. Mother Stomach cancer Brother No problems noted. Brother No problems noted. Brother No problems noted. Brother No problems noted. Brother No problems noted. Brother No problems noted. Sister No problems noted. Sister No problems noted. Sister No problems noted. Sister No problems noted. Surgical History History of surgery Amputated toe Hx of cholecystectomy History of appendectomy Social History Housing: Apartment Patient Tobacco Use Status: Current everyday Tobacco user Tobacco use type: Cigarette Cigarettes Per Day: 3 e-Cigarette/Vaping Use: Never Used Advance Directives: No Advance Directives Information Provided: No Do you have a plan to hurt others: No Plan Current occupational status: retired and disabled Cognitive needs: No Hearing needs: No Vision needs: No Meds Allergies Allergy/AdvReac Type Severity Reaction Status Date / Time codeine Allergy Unknown hives Verified 06/15/24 17:55 NSAIDS (Non-Steroidal AdvReac Mild On blood Verified 06/15/24 17:55 Anti-Inflamma thinners Active Medications: Current Medications Acetaminophen (Acetaminophen 325 Mg Tablet) 975 mg PO Q6H PRN PRN Reason: Pain, Mild (Pain Scale 1-3), fever or headache Albuterol Sulfate (Albuterol Sulfate (0.083%) 2.5 Mg/3 Ml Vial.Neb) 2.5 mg INHALE RQ4H WHILE AWAKE BRIDGER Albuterol Sulfate (Albuterol Sulfate (0.083%) 2.5 Mg/3 Ml Vial.Neb) 2.5 mg INHALE Q2H PRN PRN Reason: Shortness of Breath/Wheezing Azithromycin 500 mg/ Sodium (Chloride) 250 mls @ 125 mls/hr IV Q24H BRIDGER Levofloxacin (Levofloxacin 500 Mg Tablet) 500 mg PO Q24H BRIDGER Methylprednisolone Sodium Succinate (Methylprednisolone Sod Succ 40 Mg/Ml Vial) 40 mg IVPUSH Q12H [facility] Sodium Chloride (0.9 % Sodium Chloride Flush 3 Ml Syringe) 3 ml IVFLUSH QSHIFT [facility] Home Medications ?Medication ?Instructions ?Recorded ?Confirmed ?Last Taken ?Type albuterol sulfate 2.5 mg/3 mL 2.5 mg inhalation QID PRN Wheezing 08/25/20 01/05/24 Unknown History (0.083 %) solution for nebulization buprenorphine 8 mg-naloxone 2 mg 15 mg sublingual DAILY 10/29/22 01/05/24 Unknown History sublingual film clonazepam 0.5 mg tablet 0.25 mg PO BID 10/29/22 01/05/24 Unknown History fluticasone fur. 200 mcg-umeclid 1 ea inhalation DAILY 01/05/24 01/05/24 Unknown History 62.5 mcg-vilant 25 mcg inhalat.powder (Trelegy Ellipta) Physical Exam 2 Vital Signs and Narrative: Vital Signs: Last Vital Signs Temp 98.5 F 06/15/24 19:38 Pulse 89 06/15/24 19:38 Resp 19 06/15/24 19:38 BP 132/108 H 06/15/24 19:38 Pulse Ox 91 L 06/15/24 19:38 O2 Del Method Nasal Cannula 06/15/24 19:38 O2 Flow Rate 2 06/15/24 19:38 Oxygen Flow Rate 2 06/15/24 17:53 BMI result Body Mass Index 16.9 Constitutional - Awake and Alert. Tachypneic. Very anxious. Constantly asking for Klonopin. Malnourished and cachectic. HEENT - PER, EOMI. Normal sclerae. Dry oral mucosa. Heart - S1S2, RRR, No murmurs. Lungs - Normal lung expansion, Normal respiratory effort. Tachypnea. Bilateral end expiratory wheezes. No crackles. No rhonchi. Abdomen - NT / ND; +BS; No rebound or guarding - No CVA tenderness Extremities - no calf tenderness bilaterally, no swelling Musculoskeletal - Generalized muscular atrophy. Skin - Warm/Dry Neurological - Alert & oriented x3. No focal weakness grossly noted. Normal speech. Psychological - Anxious affect. No agitation. Results Labs 06/15/24 18:18 06/15/24 18:18 Labs: Laboratory Results - last 24 hr 06/15/24 06/15/24 18:18 18:31 MCV 100.5 H MCH 35.8 H MCHC 35.6 H RDW 14.8 Plt Count 223 D MPV 9.3 L Immature Gran % (Auto) 1.2 H Neut % (Auto) 81.1 H Lymph % (Auto) 10.7 L [place] % (Auto) 5.6 Eos % (Auto) 0.7 Baso % (Auto) 0.7 Lymph # (Auto) 0.8 L [place] # (Auto) 0.4 Eos # (Auto) 0.1 Baso # (Auto) 0.1 Abs Immat Gran (auto) 0.09 H Absolute Neuts (auto) 6.0 Absolute Nucleated RBC 0.000 Nucleated RBC % (auto) 0.0 VBG pH 7.33 VBG pCO2 93 VBG pO2 38 VBG HCO3 49 H VBG O2 Saturation 48.0 VBG Base Excess 17.4 Anion Gap 14 Estim Creat Clear Calc 52.4 Estimated GFR > 60 Random Glucose 88 Lactic Acid 0.9 Calcium 10.1 Magnesium 2.0 Total Bilirubin 0.5 Direct Bilirubin 0.2 AST 42 H ALT 9 Alkaline Phosphatase 95 Troponin I High Sens 9.4 B-Natriuretic Peptide 184 H Total Protein 8.0 Albumin 3.8 Ethyl Alcohol < 10 COVID-19 (TIP) Negative COVID-19 Clin Com See Note Influenza Type A (MAGALIE) Negative Influenza Type B (MAGALIE) Negative Influenza A & B Note See Note Imaging Radiologist's Impressions: Impressions Chest X-Ray 06/15/24 17:54 IMPRESSION: Increased right suprahilar opacities may be infectious/inflammatory in etiology. Electronically signed by: Jennifer Apodaca MD 06/15/2024 06:30 PM EDT RP Assessment and Plan (1) Acute and chronic respiratory failure with hypoxia: Status: Acute (2) Hypercapnia: Status: Acute (3) Anxiety: Status: Acute (4) Hypertension, essential: Status: Acute Plan Gisela Amaya is a 68 y/o woman admitted with: * Hypoxic and hypercapnic respiratory failure secondary to acute exacerbation of COPD and pneumonia. Admit to hospitalist service. Pulse oximetry. Telemetry. Supplemental O2 to keep O2 sats > 90%. Continue bronchodilator therapy, IV steroids and empiric IV antibiotic therapy with ceftriaxone and azithromycin. * Extreme anxiety. Klonopin 0.5 mg p.o. x1. * Depression. Continue sertraline. * Protein-calorie malnutrition, BMI 16.9 kg/m2. Dietary consult. * Hypothyroidism. Continue levothyroxine. Check TSH. * Insomnia. Continue mirtazapine. * Essential hypertension. Continue lisinopril. * PVD. Continue Plavix. * Tobacco dependence. Patient stated that she quit 1 week ago. GI prophylaxis: Ppi DVT prophylaxis: SCDs. Hesitated about starting Lovenox as the patient is on Plavix (increased risk of bleeding. Code status: Full Patient will need hospitalization for at least 2 midnights for hypoxic + hypercapnic respiratory failure and pneumonia treatment with bronchodilator therapy, empiric IV antibiotic therapy, supplemental oxygen and IV steroids. Quality Stroke Does the patient have a stroke diagnosis?: No VTE Prior VTE?: No VTE Risk Level:: Medical - moderate - high VTE Device Contraindication: N/A - Device Ordered VTE Drug Contraindication: Treatment Not Indicated
[2024-06-15 20:53] VITALS: PULSE 67; RESP 18; O2SAT 96
[2024-06-15] MEDS: Albuterol Sulfate (0.083%) 2.5 MG/3 ML VIAL.NEB INHALE (20:53)
[2024-06-15] MEDS: clonazePAM 0.5 MG TABLET PO (21:00)
[2024-06-15] MEDS: 0.9 % Sodium Chloride Flush 3 ML SYRINGE IVFLUSH (21:00)
[2024-06-15 21:13] LABS: Thyroid Stimulating Hormone 6.41 uIU/mL (0.32-4.0)
[2024-06-15] MEDS: OLANZapine 5 MG TABLET PO (23:09)
[2024-06-16] VITALS (16 sets, daily range): BP systolic 104–164; BP diastolic 57–95; PULSE 55–92; RESP 12–21; TEMP 36.2–36.9; O2SAT 92–98
--- NOTE | 2024-06-16 01:47 | PC.RT ---
pt placed omn bipap for the night, however, pt refusing to go on it again. taken off at appx 01:15 am.. prior to daylight saving time. pt now on med tele 02 weaned to 1 l by rn and sats [phone]. dr bashir and Elvin from ICU aware.
[2024-06-16 06:25] LABS: Venous Blood Gas Refer to POC result
[2024-06-16 06:27] LABS: MANUAL DIFF FLAG NO
[2024-06-16 06:28] LABS: VBG Base Excess 16.9 mmol/L; VBG HCO3 46 mmol/L (22-26); VBG pCO2 75 mmHg; VBG pH 7.39 (7.32-7.43); VBG pO2 38 mmHg
[2024-06-16 06:37] LABS: Basophils Percent Auto 0.6 % (0-2); Eosinophils Percent Auto 0.2 % (0-4); Hematocrit 36.3 % (37.0-47.0); Hemoglobin 12.2 g/dl (12.0-16.0); Imm Gran Abs Auto 0.04 X10*3/uL (0.00-0.03); Imm Gran Pct Auto 0.7 % (0.0-0.4); Lymphocytes Absolute Auto 0.7 X10*3/uL (1.2-4.9); Lymphocytes Percent Auto 12.8 % (20-40); Mean Corpuscular HGB Conc 33.6 g/dl (31.0-35.0); Mean Corpuscular Hemoglobin 33.4 pg (27.0-33.0); Mean Corpuscular Volume 99.5 fL (80.0-98.0); Mean Platelet Volume 9.5 fL (9.4-12.3); Monocytes Absolute Auto 0.3 X10*3/uL (0.1-1.2); Monocytes Percent Auto 4.6 % (2-11); Neutrophils Absolute Auto 4.4 x10*3/uL (2.0-8.3); Neutrophils Percent Auto 81.1 % (45-73); Platelet Count 201 X10*3/uL (160-400); Red Blood Count 3.65 X10*6/uL (4.20-5.50); Red Cell Distribution Width 13.9 % (11.0-16.0); White Blood Count 5.4 X10*3/uL (4.8-10.8)
[2024-06-16 06:48] LABS: Alanine Aminotransferase 7 U/L (0-31); Alkaline Phosphatase 71 U/L (39-117); Anion Gap 13 (12-20); Aspartate Amino Transferase 32 U/L (5-31); Bilirubin Total 0.3 mg/dL (0.0-1.0); Blood Urea Nitrogen 20 mg/dL (9-16); Calcium 8.8 mg/dL (8.4-10.2); Carbon Dioxide 38 mmol/L (22-29); Chloride 92 mmol/L (96-108); Creatinine Clr Calc Pharmacy 51.7; Estimated Glomerular Filt Rate > 60; Glucose Random 100 mg/dL (60-115); Magnesium 1.8 mg/dL (1.6-2.6); Potassium 4.9 mmol/L (3.3-5.1); Sodium 138 mmol/L (135-145); Total Protein 6.2 g/dL (6.5-8.0)
[2024-06-16] MEDS: Albuterol Sulfate (0.083%) 2.5 MG/3 ML VIAL.NEB INHALE ×4 (07:54→20:22)
[2024-06-16] MEDS: methylPREDNISolone Sod Succ 40 MG/ML VIAL IVPUSH ×2 (09:10→20:11)
[2024-06-16] MEDS: Pantoprazole Sodium 40 MG/10 ML VIAL IVPUSH (09:10)
[2024-06-16] MEDS: 0.9 % Sodium Chloride Flush 3 ML SYRINGE IVFLUSH ×2 (09:10→20:11)
[2024-06-16] MEDS: cefTRIAXone sodium 1 GM VIAL IVPUSH (09:10)
--- NOTE | 2024-06-16 10:45 | PHA.MEDREC ---
Addendum entered by Nicolasa Hooks RPh 06/16/24 11:57: [facility] reviewed Original Note: Pharmacy Consult ? Medication Reconciliation Pharmacy has completed the medication reconciliation. Spoke to pt to confirm meds.
--- NOTE | 2024-06-16 13:12 | P.PNIM_ITS ---
Subjective Subjective Date of Service: 06/16/24 Interval History: Being followed for worsening shortness of breath associated with productive cough diagnosed with pneumonia and acute hypoxic respiratory failure. Patient complaining of dizziness, with component of lightheadedness and room spinning symptoms going on for couple weeks, and occur at rest and with change in position denies sinus pressure, no earache no ringing in year, does complain of headache, feels shortness of breath this stable, has decreased appetite and mild nausea. Requesting for Klonopin that she takes 3 times a day as needed. Review of Systems All other system reviewed and are negative Physical Exam 2 Vital Signs: Vital Signs: Last Vital Signs Temp 98.4 F 06/16/24 11:42 Pulse 70 06/16/24 11:42 Resp 20 06/16/24 11:42 BP 152/76 H 06/16/24 11:42 Pulse Ox 96 06/16/24 11:42 O2 Del Method Nasal Cannula 06/16/24 11:42 O2 Flow Rate 2 06/16/24 11:42 Oxygen Flow Rate 2 06/15/24 17:53 BMI result Body Mass Index 16.9 Const: Other: General awake alert , frail, in mild distress due to dizziness No nystagmus Neck no JVD. CVS regular rate rhythm, Respiratory lungs diminished ,no respiratory distress, expiratory wheeze Gastrointestinal abdomen soft, non tender, bowel sounds audible, no no guarding , no rigidity. Extremities no edema. Neuro non focal Skin no rash Psych appropriate affect Objective Data Active Medications Acetaminophen (Acetaminophen 325 Mg Tablet) 975 mg PO Q6H PRN PRN Reason: Pain, Mild (Pain Scale 1-3), fever or headache Albuterol Sulfate (Albuterol Sulfate (0.083%) 2.5 Mg/3 Ml Vial.Neb) 2.5 mg INHALE RQ4H WHILE AWAKE [facility] Last Admin: 06/16/24 11:29 Dose: 2.5 mg Documented By: FRANCK Albuterol Sulfate (Albuterol Sulfate (0.083%) 2.5 Mg/3 Ml Vial.Neb) 2.5 mg INHALE Q2H PRN PRN Reason: Shortness of Breath/Wheezing Ceftriaxone Sodium (Ceftriaxone Sodium 1 Gm Vial) 1 gm IVPUSH Q24H [facility] Last Admin: 06/16/24 09:10 Dose: 1 gm Documented By: RAMSEY Azithromycin 500 mg/ Sodium (Chloride) 250 mls @ 125 mls/hr IV Q24H [facility] Methylprednisolone Sodium Succinate (Methylprednisolone Sod Succ 40 Mg/Ml Vial) 40 mg IVPUSH Q12H [facility] Last Admin: 06/16/24 09:10 Dose: 40 mg Documented By: RAMSEY Pantoprazole Sodium (Pantoprazole Sodium 40 Mg/10 Ml Vial) 40 mg IVPUSH Q24H [facility] Last Admin: 06/16/24 09:10 Dose: 40 mg Documented By: RAMSEY Sodium Chloride (0.9 % Sodium Chloride Flush 3 Ml Syringe) 3 ml IVFLUSH QSHIFT [facility] Last Admin: 06/16/24 09:10 Dose: 3 ml Documented By: RAMSEY Labs 06/16/24 06:17 06/16/24 06:17 Labs: Laboratory Results - last 24 hr 06/15/24 06/15/24 06/16/24 18:18 18:31 06:17 MCV 100.5 H 99.5 H MCH 35.8 H 33.4 H MCHC 35.6 H 33.6 RDW 14.8 13.9 Plt Count 223 D 201 MPV 9.3 L 9.5 Immature Gran % (Auto) 1.2 H 0.7 H Neut % (Auto) 81.1 H 81.1 H Lymph % (Auto) 10.7 L 12.8 L Harris % (Auto) 5.6 4.6 Eos % (Auto) 0.7 0.2 Baso % (Auto) 0.7 0.6 Lymph # (Auto) 0.8 L 0.7 L Harris # (Auto) 0.4 0.3 Eos # (Auto) 0.1 0.0 Baso # (Auto) 0.1 0.0 Abs Immat Gran (auto) 0.09 H 0.04 H Absolute Neuts (auto) 6.0 4.4 Absolute Nucleated RBC 0.000 0.000 Nucleated RBC % (auto) 0.0 0.0 VBG pH 7.33 VBG pCO2 93 VBG pO2 38 VBG HCO3 49 H VBG O2 Saturation 48.0 VBG Base Excess 17.4 Anion Gap 14 13 Estim Creat Clear Calc 52.4 51.7 Estimated GFR > 60 > 60 Random Glucose 88 100 Lactic Acid 0.9 Calcium 10.1 8.8 D Magnesium 2.0 1.8 Total Bilirubin 0.5 0.3 Direct Bilirubin 0.2 AST 42 H 32 H ALT 9 7 Alkaline Phosphatase 95 71 Troponin I High Sens 9.4 B-Natriuretic Peptide 184 H Total Protein 8.0 6.2 L Albumin 3.8 3.0 L TSH 6.41 H Ethyl Alcohol < 10 COVID-19 (TIP) Negative COVID-19 Clin Com See Note Influenza Type A (MAGALIE) Negative Influenza Type B (MAGALIE) Negative Influenza A & B Note See Note 06/16/24 06:23 MCV MCH MCHC RDW Plt Count MPV Immature Gran % (Auto) Neut % (Auto) Lymph % (Auto) Harris % (Auto) Eos % (Auto) Baso % (Auto) Lymph # (Auto) Harris # (Auto) Eos # (Auto) Baso # (Auto) Abs Immat Gran (auto) Absolute Neuts (auto) Absolute Nucleated RBC Nucleated RBC % (auto) VBG pH 7.39 VBG pCO2 75 VBG pO2 38 VBG HCO3 46 H VBG O2 Saturation 49.0 VBG Base Excess 16.9 Anion Gap Estim Creat Clear Calc Estimated GFR Random Glucose Lactic Acid Calcium Magnesium Total Bilirubin Direct Bilirubin AST ALT Alkaline Phosphatase Troponin I High Sens B-Natriuretic Peptide Total Protein Albumin TSH Ethyl Alcohol COVID-19 (TIP) COVID-19 Clin Com Influenza Type A (MAGALIE) Influenza Type B (MAGALIE) Influenza A & B Note Assessment and Plan (1) Pneumonia: Status: Acute (2) Hypercapnia: Status: Acute Plan 68 y/o woman admitted with: Acute exacerbation of COPD and pneumonia. Continue 2 L of home oxygen keep finger oximetry 88-90% Chest x-ray showed increased right suprahilar opacities may be infectious/inflammatory in etiology continue bronchodilator therapy, IV steroids and iv ceftriaxone and azithromycin. Chronic anxiety and depression. Will resume home medications including Klonopin 0.5 mg t.i.d., sertraline Chronic dizziness will check orthostatic blood pressures, no nystagmus, no neuro deficit follow clinical course Moderate Protein-calorie malnutrition, BMI 16.9 kg/m2. Add supplements Hypothyroidism. Continue levothyroxine. Check TSH. Insomnia. Continue mirtazapine. Essential hypertension. Continue lisinopril. PVD. Continue Plavix. Tobacco dependence. Patient stated that she quit 1 week ago, counseling done. DVT prophylaxis: SCDs. Code status: Full Patient will need continued inpatient hospitalization for acute COPD exacerbation and pneumonia requiring IV steroids and IV antibiotics. Quality Stroke Does the patient have a stroke diagnosis?: No VTE Prior VTE?: No VTE Risk Level:: Medical - moderate - high VTE Device Contraindication: N/A - Device Ordered VTE Drug Contraindication: Treatment Not Indicated
[2024-06-16] MEDS: lisinopriL 10 MG TABLET PO (14:01)
[2024-06-16] MEDS: clonazePAM 0.5 MG TABLET 0.25 MG PO ×2 (14:01→22:55)
[2024-06-16] MEDS: Clopidogrel Bisulfate 75 MG TABLET PO (14:01)
[2024-06-16] MEDS: Buprenorphine/Naloxone 8/2 mg FILM 1.5 FILM SUBLINGUAL (14:01)
--- NOTE | 2024-06-16 16:18 | MHC.CM.PN ---
PT REPORTS SHE LIVES WITH HER DAUGHTER, DAUGHTERS AND NIECE SHE HAS NO SERVICES PT HAS O2 FROM [facility], SHE SAYS SHE NEEDS TUBING AND THE SPONGE THAT GOES ON THE BACK OF THE CONCENTRATOR SHE ALSO HAS A WALKER SHE DOES NOT USE HCP DECLINED, SHE SAYS SHE IS LOOKING INTO IT PCP: ALIYA SILVA IMM DELIVERED DCP: HOME NO SERVICES VIA [facility]
[2024-06-16] MEDS: Azithromycin 500 MG in 0.9 % Sodium Chloride 250 ML 125 MG IV (17:36)
[2024-06-16] MEDS: Mirtazapine 15 MG TABLET PO (20:11)
[2024-06-16] MEDS: OLANZapine 5 MG TABLET PO (20:11)
[2024-06-17] VITALS (9 sets, daily range): BP systolic 97–173; BP diastolic 52–92; PULSE 64–100; RESP 16–18; TEMP 36.1–36.6; O2SAT 92–100; BMI 16.9
[2024-06-17] MEDS: Levothyroxine Sodium 125 MCG TABLET PO (05:45)
[2024-06-17] MEDS: Albuterol Sulfate (0.083%) 2.5 MG/3 ML VIAL.NEB INHALE ×4 (07:42→21:02)
[2024-06-17] MEDS: Fluticasone/Umeclidinium/Vilanterol 200/62.5/25 BLST.W.DEV 1 PUFF INHALE (07:42)
[2024-06-17] MEDS: cefTRIAXone sodium 1 GM VIAL IVPUSH (08:56)
[2024-06-17] MEDS: clonazePAM 0.5 MG TABLET 0.25 MG PO ×2 (08:56→17:00)
[2024-06-17] MEDS: Sertraline HCL 100 MG TABLET PO (08:56)
[2024-06-17] MEDS: Clopidogrel Bisulfate 75 MG TABLET PO (08:56)
[2024-06-17] MEDS: Roflumilast 500 MCG TABLET PO (08:56)
[2024-06-17] MEDS: 0.9 % Sodium Chloride Flush 3 ML SYRINGE IVFLUSH ×3 (08:57→21:19)
[2024-06-17] MEDS: Buprenorphine/Naloxone 8/2 mg FILM 1.5 FILM SUBLINGUAL (08:57)
[2024-06-17] MEDS: methylPREDNISolone Sod Succ 40 MG/ML VIAL IVPUSH ×2 (09:02→21:14)
[2024-06-17] MEDS: ondansetron HCL 4 MG/2 ML VIAL IVPUSH (10:51)
--- NOTE | 2024-06-17 14:03 | MHC.CLN ---
RE; CONSULT PT IS MODERATELY MALNOURISHED PT WITH MILDLY DEPLETED SUBCUTANEOUS FAT AND MUSCLE MASS WITH POOR PO INTAKE AND C/O NAUSEA DIET RX; CARDIAC-RECOMMEND LIBERALIZING DIET TO REGULAR TO INCREASE PO INTAKE WILL ADD ENSURE BID TO INCREASE KCALS SUPPLEMENT TO PROVIDE 700KCALS, 40G PROTEIN MONITOR PO INTAKE AND ENCOURAGE SUPPLEMENTS SEE ALSO FULL CLINICAL NUTRITION ASSESSMENT
--- NOTE | 2024-06-17 16:58 | HO.PM.IMPN ---
Subjective Subjective Date of Service: 06/17/24 Interval History: Feeling significantly better, dizziness resolved tolerating supplements, eating better no nausea, no vomiting, no abdominal pain, no headache, no fevers, no chills. Review of Systems All other symptoms reviewed and are negative. Physical Exam Vital Signs: Vital Signs: Last Vital Signs Temp 97.4 F 06/17/24 15:51 Pulse 64 06/17/24 15:51 Resp 16 06/17/24 15:51 BP 111/56 L 06/17/24 15:51 Pulse Ox 100 06/17/24 15:51 O2 Del Method Room Air 06/17/24 15:51 O2 Flow Rate 2 06/17/24 12:00 Oxygen Flow Rate 2 06/15/24 17:53 BMI result Body Mass Index 16.9 Const: Other: General awake alert , frail, in no acute distress No nystagmus Neck no JVD. CVS regular rate rhythm, Respiratory lungs diminished ,no respiratory distress, expiratory wheeze Gastrointestinal abdomen soft, non tender, bowel sounds audible, no guarding , no rigidity. Extremities no edema. Neuro non focal Skin no rash Psych appropriate affect Objective Data Active Medications Acetaminophen (Acetaminophen 325 Mg Tablet) 975 mg PO Q6H PRN PRN Reason: Pain, Mild (Pain Scale 1-3), fever or headache Albuterol Sulfate (Albuterol Sulfate (0.083%) 2.5 Mg/3 Ml Vial.Neb) 2.5 mg INHALE RQ4H WHILE AWAKE [facility] Last Admin: 06/17/24 15:14 Dose: 2.5 mg Documented By: GUSTABO Albuterol Sulfate (Albuterol Sulfate (0.083%) 2.5 Mg/3 Ml Vial.Neb) 2.5 mg INHALE Q2H PRN PRN Reason: Shortness of Breath/Wheezing Buprenorphine/Naloxone (Buprenorphine/Naloxone 8/2 Mg Film) 1.5 film SUBLINGUAL DAILY [facility] Last Admin: 06/17/24 08:57 Dose: 1.5 film Documented By: RADHA Ceftriaxone Sodium (Ceftriaxone Sodium 1 Gm Vial) 1 gm IVPUSH Q24H [facility] Last Admin: 06/17/24 08:56 Dose: 1 gm Documented By: RADHA Clonazepam (Clonazepam 0.5 Mg Tablet) 0.25 mg PO TID PRN PRN Reason: Anxiety Last Admin: 06/17/24 08:56 Dose: 0.25 mg Documented By: RADHA Clopidogrel Bisulfate (Clopidogrel Bisulfate 75 Mg Tablet) 75 mg PO DAILY [facility] Last Admin: 06/17/24 08:56 Dose: 75 mg Documented By: RADHA Fluticasone/Umeclidinium/Vilanterol (Fluticasone/Umeclidinium/Vilanterol 200/62.5/25 Blst.W.Dev) 1 puff INHALE RDAILY [facility] Last Admin: 06/17/24 07:42 Dose: 1 puff Documented By: GUSTABO Azithromycin 500 mg/ Sodium (Chloride) 250 mls @ 125 mls/hr IV Q24H [facility] Last Infusion: 06/16/24 19:36 Dose: Infused Documented By: OCTAVIANO Levothyroxine Sodium (Levothyroxine Sodium 125 Mcg Tablet) 125 mcg PO DAILY@0600 [facility] Last Admin: 06/17/24 05:45 Dose: 125 mcg Documented By: OCTAVIANO Methylprednisolone Sodium Succinate (Methylprednisolone Sod Succ 40 Mg/Ml Vial) 40 mg IVPUSH Q12H [facility] Last Admin: 06/17/24 09:02 Dose: 40 mg Documented By: RADHA Mirtazapine (Mirtazapine 15 Mg Tablet) 15 mg PO BEDTIME [facility] Last Admin: 06/16/24 20:11 Dose: 15 mg Documented By: OCTAVIANO Olanzapine (Olanzapine 5 Mg Tablet) 5 mg PO BEDTIME [facility] Last Admin: 06/16/24 20:11 Dose: 5 mg Documented By: OCTAVIANO Ondansetron HCl (Ondansetron Hcl 4 Mg/2 Ml Vial) 4 mg IVPUSH Q6H PRN PRN Reason: Nausea and Vomiting Last Admin: 06/17/24 10:51 Dose: 4 mg Documented By: RADHA Roflumilast (Roflumilast 500 Mcg Tablet) 500 mcg PO DAILY [facility] Last Admin: 06/17/24 08:56 Dose: 500 mcg Documented By: RADHA Sertraline HCl (Sertraline Hcl 100 Mg Tablet) 100 mg PO DAILY [facility] Last Admin: 06/17/24 08:56 Dose: 100 mg Documented By: RADHA Sodium Chloride (0.9 % Sodium Chloride Flush 3 Ml Syringe) 3 ml IVFLUSH QSHIFT [facility] Last Admin: 06/17/24 08:57 Dose: 3 ml Documented By: RADHA Labs 06/16/24 06:17 06/16/24 06:17 Microbiology Microbiology Results: Microbiology 06/15/24 18:32 Blood Culture - Preliminary Blood - Venous No growth after 24 hours. 06/15/24 18:18 Blood Culture - Preliminary Blood - Venous No growth after 24 hours. Assessment and Plan (1) Pneumonia: Status: Acute (2) Chronic respiratory failure with hypoxia: Status: Acute Plan 68 y/o woman admitted with: Acute exacerbation of COPD and pneumonia with chronic hypoxic respiratory failure. Feeling better Continue 2 L of home oxygen keep finger oximetry 88-90% Chest x-ray showed increased right suprahilar opacities may be infectious/inflammatory in etiology continue bronchodilator therapy, IV steroids and iv ceftriaxone and azithromycin and transitioned to by mouth in a.m.. Encourage out of bed to chair Chronic anxiety and depression. Continue home medications including Klonopin 0.5 mg t.i.d., sertraline Chronic dizziness noted to have drop in blood pressure with standing, and soft blood pressure this morning will discontinue lisinopril and follow BP Moderate Protein-calorie malnutrition, BMI 16.9 kg/m2. Add supplements Hypothyroidism. Continue levothyroxine. TSH 6.41. Recommend outpatient TSH follow-up Insomnia. Continue mirtazapine. Essential hypertension. Soft BP hold lisinopril PVD. Continue Plavix. Tobacco dependence. quit smoking 1 week ago, counseling done. DVT prophylaxis: SCDs. Code status: Full Patient will need continued inpatient hospitalization for acute COPD exacerbation and pneumonia requiring IV steroids and IV antibiotics. Quality Stroke Does the patient have a stroke diagnosis?: No VTE Prior VTE?: No VTE Risk Level:: Medical - moderate - high VTE Device Contraindication: N/A - Device Ordered VTE Drug Contraindication: Treatment Not Indicated
[2024-06-17] MEDS: Azithromycin 500 MG in 0.9 % Sodium Chloride 250 ML 125 MG IV (17:06)
[2024-06-17] MEDS: Mirtazapine 15 MG TABLET PO (21:14)
[2024-06-17] MEDS: OLANZapine 5 MG TABLET PO (21:14)
[2024-06-18] VITALS (13 sets, daily range): BP systolic 99–179; BP diastolic 55–86; PULSE 61–89; RESP 15–20; TEMP 36–36.8; O2SAT 89–96
--- NOTE | 2024-06-18 | ECG_ITS ---
Test Reason : cp Blood Pressure : / mmHG Vent. Rate : 077 BPM Atrial Rate : 077 BPM P-R Int : 108 ms QRS Dur : 080 ms QT Int : 354 ms P-R-T Axes : 069 064 063 degrees QTc Int : 400 ms Sinus rhythm with sinus arrhythmia with short AR Otherwise normal ECG When compared with ECG of 15-JUN-2024 17:47, No significant change was found Referred By: Raquel Higuera Electronically Signed By:JOVITA GERARD MD
[2024-06-18] MEDS: Levothyroxine Sodium 125 MCG TABLET PO (05:34)
[2024-06-18] MEDS: Albuterol Sulfate (0.083%) 2.5 MG/3 ML VIAL.NEB INHALE ×4 (07:35→18:41)
[2024-06-18] MEDS: Fluticasone/Umeclidinium/Vilanterol 200/62.5/25 BLST.W.DEV 1 PUFF INHALE (07:35)
[2024-06-18] MEDS: Clopidogrel Bisulfate 75 MG TABLET PO (08:54)
[2024-06-18] MEDS: guaiFENesin DM 100/10/5 ML 5 ML SYRUP 10 ML PO (08:54)
[2024-06-18] MEDS: methylPREDNISolone Sod Succ 40 MG/ML VIAL IVPUSH (08:55)
[2024-06-18] MEDS: clonazePAM 0.5 MG TABLET 0.25 MG PO ×3 (08:55→20:07)
[2024-06-18] MEDS: cefTRIAXone sodium 1 GM VIAL IVPUSH (08:55)
[2024-06-18] MEDS: Roflumilast 500 MCG TABLET PO (08:55)
[2024-06-18] MEDS: Buprenorphine/Naloxone 8/2 mg FILM 1.5 FILM SUBLINGUAL (08:55)
[2024-06-18] MEDS: Sertraline HCL 100 MG TABLET PO (08:55)
[2024-06-18] MEDS: 0.9 % Sodium Chloride Flush 3 ML SYRINGE IVFLUSH ×3 (08:56→20:07)
[2024-06-18] MEDS: guaiFENesin LA 600 MG TAB.ER.12H PO ×2 (11:06→20:03)
[2024-06-18] MEDS: cefuroxime axetiL 500 MG TABLET PO ×2 (11:07→20:02)
[2024-06-18] MEDS: Azithromycin 250 MG TABLET PO (11:07)
--- NOTE | 2024-06-18 14:33 | PC.NURSE ---
pt c/o mild chest pain, high anxiety level, and feeling panic. MD notified, VSS and documented. PRN Clonazepam 0.25mg given early per MD ok. EKG taken and notified. cont to monitor.
--- NOTE | 2024-06-18 15:31 | P.PNIM_ITS ---
Subjective Subjective Date of Service: 06/18/24 Interval History: Complaining of dizziness this morning that is persistent, described as spinning of head, no worsening with change in position, no associated URI symptoms no earache no ringing in the ear, is chronic Complaining of dry cough. No associated fever, no chills, no headache. Review of Systems All other system reviewed and are negative Physical Exam 2 Vital Signs: Vital Signs: Last Vital Signs Temp 98.0 F 06/18/24 14:16 Pulse 89 06/18/24 15:13 Resp 17 06/18/24 15:13 BP 99/60 06/18/24 14:16 Pulse Ox 95 06/18/24 14:16 O2 Del Method Nasal Cannula 06/18/24 14:16 O2 Flow Rate 3 06/18/24 14:16 Oxygen Flow Rate 2 06/15/24 17:53 BMI result Body Mass Index 16.9 Const: Other: General awake alert , frail, in no acute distress No nystagmus No sinus pressure Neck no JVD. CVS regular rate rhythm, Respiratory lungs diminished ,no respiratory distress, expiratory wheeze Gastrointestinal abdomen soft, non tender, bowel sounds audible, no guarding , no rigidity. Extremities no edema. Neuro non focal Skin no rash Psych appropriate affect Objective Data Active Medications Acetaminophen (Acetaminophen 325 Mg Tablet) 975 mg PO Q6H PRN PRN Reason: Pain, Mild (Pain Scale 1-3), fever or headache Albuterol Sulfate (Albuterol Sulfate (0.083%) 2.5 Mg/3 Ml Vial.Neb) 2.5 mg INHALE RQ4H WHILE AWAKE COUNTS INCLUDE 234 BEDS AT THE [facility] Last Admin: 06/18/24 15:13 Dose: 2.5 mg Documented By: FRANCK Albuterol Sulfate (Albuterol Sulfate (0.083%) 2.5 Mg/3 Ml Vial.Neb) 2.5 mg INHALE Q2H PRN PRN Reason: Shortness of Breath/Wheezing Azithromycin (Azithromycin 250 Mg Tablet) 250 mg PO DAILY COUNTS INCLUDE 234 BEDS AT [facility] Last Admin: 06/18/24 11:07 Dose: 250 mg Documented By: RADHA Buprenorphine/Naloxone (Buprenorphine/Naloxone 8/2 Mg Film) 1.5 film SUBLINGUAL DAILY COUNTS INCLUDE 234 BEDS AT [facility] Last Admin: 06/18/24 08:55 Dose: 1.5 film Documented By: RADHA Cefuroxime Axetil (Cefuroxime Axetil 500 Mg Tablet) 500 mg PO BID COUNTS INCLUDE 234 BEDS AT THE [facility] Last Admin: 06/18/24 11:07 Dose: 500 mg Documented By: RADHA Clonazepam (Clonazepam 0.5 Mg Tablet) 0.25 mg PO TID PRN PRN Reason: Anxiety Last Admin: 06/18/24 14:21 Dose: 0.25 mg Documented By: RADHA Comments: ok to give now Clopidogrel Bisulfate (Clopidogrel Bisulfate 75 Mg Tablet) 75 mg PO DAILY COUNTS INCLUDE 234 BEDS AT [facility] Last Admin: 06/18/24 08:54 Dose: 75 mg Documented By: RADHA Fluticasone/Umeclidinium/Vilanterol (Fluticasone/Umeclidinium/Vilanterol 200/62.5/25 Blst.W.Dev) 1 puff INHALE RDAILY COUNTS INCLUDE 234 BEDS AT [facility] Last Admin: 06/18/24 07:35 Dose: 1 puff Documented By: FRANCK Guaifenesin (Guaifenesin La 600 Mg Tab.Er.12h) 600 mg PO BID COUNTS INCLUDE 234 BEDS AT THE [facility] Last Admin: 06/18/24 11:06 Dose: 600 mg Documented By: RADHA Guaifenesin/Dextromethorphan (Guaifenesin Dm 100/10/5 Ml 5 Ml Syrup) 10 ml PO Q6H PRN PRN Reason: Cough Last Admin: 06/18/24 08:54 Dose: 10 ml Documented By: RADHA Levothyroxine Sodium (Levothyroxine Sodium 125 Mcg Tablet) 125 mcg PO DAILY@0600 COUNTS INCLUDE 234 BEDS AT THE [facility] Last Admin: 06/18/24 05:34 Dose: 125 mcg Documented By: SOO Mirtazapine (Mirtazapine 15 Mg Tablet) 15 mg PO BEDTIME COUNTS INCLUDE 234 BEDS AT THE [facility] Last Admin: 06/17/24 21:14 Dose: 15 mg Documented By: SOO Olanzapine (Olanzapine 5 Mg Tablet) 5 mg PO BEDTIME COUNTS INCLUDE 234 BEDS AT THE [facility] Last Admin: 06/17/24 21:14 Dose: 5 mg Documented By: SOO Ondansetron HCl (Ondansetron Hcl 4 Mg/2 Ml Vial) 4 mg IVPUSH Q6H PRN PRN Reason: Nausea and Vomiting Last Admin: 06/17/24 10:51 Dose: 4 mg Documented By: RADHA Prednisone (Prednisone 20 Mg Tablet) 20 mg PO DAILY COUNTS INCLUDE 234 BEDS AT [facility] Roflumilast (Roflumilast 500 Mcg Tablet) 500 mcg PO DAILY COUNTS INCLUDE 234 BEDS AT THE [facility] Last Admin: 06/18/24 08:55 Dose: 500 mcg Documented By: RADHA Sertraline HCl (Sertraline Hcl 100 Mg Tablet) 100 mg PO DAILY COUNTS INCLUDE 234 BEDS AT [facility] Last Admin: 06/18/24 08:55 Dose: 100 mg Documented By: RADHA Sodium Chloride (0.9 % Sodium Chloride Flush 3 Ml Syringe) 3 ml IVFLUSH QSHIFT COUNTS INCLUDE 234 BEDS AT THE [facility] Last Admin: 06/18/24 08:56 Dose: 3 ml Documented By: RADHA Labs 06/16/24 06:17 06/16/24 06:17 Microbiology Microbiology Results: Microbiology 06/15/24 18:32 Blood Culture - Preliminary Blood - Venous No growth after 48 hours. 06/15/24 18:18 Blood Culture - Preliminary Blood - Venous No growth after 48 hours. Assessment and Plan (1) Pneumonia: Status: Acute (2) Acute and chronic respiratory failure with hypoxia: Status: Acute Plan 68 y/o woman admitted with: Acute exacerbation of COPD and pneumonia with acute on chronic hypoxic respiratory failure. Persistent dry cough, shortness of breath improved Oxygenation dropped to 89% today, rapidly returned back to baseline. Continue 2 L of home oxygen keep finger oximetry 88-90% Chest x-ray showed increased right suprahilar opacities may be infectious/inflammatory in etiology continue bronchodilator therapy, DC IV steroids ,v ceftriaxone and azithromycin day 2, and transitioned to by mouth prednisone and antibiotics Encourage out of bed to chair Chronic anxiety and depression. Continue home medications including Klonopin 0.5 mg t.i.d., sertraline , complain of brief chest pain, EKG obtained that showed no acute abnormality, support provided. Chronic dizziness orthostatic blood pressures unremarkable , meclizine 25 mg t.i.d. as needed. Moderate Protein-calorie malnutrition, BMI 16.9 kg/m2. Continue supplements Hypothyroidism. Continue levothyroxine. TSH 6.41. Recommend outpatient TSH follow-up Insomnia. Continue mirtazapine. Essential hypertension. Soft BP hold lisinopril PVD. Continue Plavix. Tobacco dependence. quit smoking 1 week ago, counseling done. DVT prophylaxis: SCDs. Code status: Full Patient will need continued inpatient hospitalization for acute COPD exacerbation and pneumonia requiring IV steroids and IV antibiotics. Quality Stroke Does the patient have a stroke diagnosis?: No VTE Prior VTE?: No VTE Risk Level:: Medical - moderate - high VTE Device Contraindication: N/A - Device Ordered VTE Drug Contraindication: Treatment Not Indicated
[2024-06-18] MEDS: Mirtazapine 15 MG TABLET PO (20:02)
[2024-06-18] MEDS: OLANZapine 5 MG TABLET PO (20:03)
[2024-06-19] VITALS (9 sets, daily range): BP systolic 97–162; BP diastolic 54–86; PULSE 52–75; RESP 16–20; TEMP 36.2–37.1; O2SAT 92–97
[2024-06-19] MEDS: Levothyroxine Sodium 125 MCG TABLET PO (06:16)
[2024-06-19] MEDS: Albuterol Sulfate (0.083%) 2.5 MG/3 ML VIAL.NEB INHALE ×4 (07:36→19:34)
[2024-06-19] MEDS: Fluticasone/Umeclidinium/Vilanterol 200/62.5/25 BLST.W.DEV 1 PUFF INHALE (07:36)
[2024-06-19] MEDS: guaiFENesin LA 600 MG TAB.ER.12H PO ×2 (08:52→20:51)
[2024-06-19] MEDS: Sertraline HCL 100 MG TABLET PO (08:52)
[2024-06-19] MEDS: cefuroxime axetiL 500 MG TABLET PO ×2 (08:52→20:51)
[2024-06-19] MEDS: Clopidogrel Bisulfate 75 MG TABLET PO (08:53)
[2024-06-19] MEDS: Roflumilast 500 MCG TABLET PO (08:53)
[2024-06-19] MEDS: Azithromycin 250 MG TABLET PO (08:53)
[2024-06-19] MEDS: predniSONE 20 MG TABLET PO (08:53)
[2024-06-19] MEDS: clonazePAM 0.5 MG TABLET 0.25 MG PO ×3 (08:55→20:51)
[2024-06-19] MEDS: Buprenorphine/Naloxone 8/2 mg FILM 1.5 FILM SUBLINGUAL (08:56)
[2024-06-19] MEDS: 0.9 % Sodium Chloride Flush 3 ML SYRINGE IVFLUSH ×3 (08:57→20:53)
[2024-06-19] MEDS: Meclizine HCl 25 MG TABLET PO (09:02)
--- NOTE | 2024-06-19 10:33 | MHC.CM.PN ---
Patient may not be medically cleared for dc today (C/O Dizziness); home is the goal and CM will continue to follow.
--- NOTE | 2024-06-19 11:31 | MHC.CLN ---
F/U PT IS MODERATELY MALNOURISHED SEE FULL CLINICAL NUTRITION ASSESSMENT DATED 06/17/24 PO INTAKE GOOD DIET RX; REGULAR-APPROPRIATE PT RECEIVING ENSURE BID TO INCREASE KCALS SUPPLEMENT PROVIDES 700KCALS, 40G PROTEIN MONITOR PO INTAKE AND ENCOURAGE SUPPLEMENTS
--- NOTE | 2024-06-19 15:53 | P.PNIM_ITS ---
Subjective Subjective Date of Service: 06/19/24 Interval History: Complaining of dizziness, improving with meclizine, noted to have drop in oxygenation to 85- 86% on 2 L home oxygen with ambulation, denies worsening shortness of breath or cough, feels not ready for discharge today, since concern about falling, although noted to have steady gait with ambulation. No acute overnight events, denies fever, no chills, no headache, no dizziness, no nausea, no vomiting, no abdominal pain. Review of Systems All other system reviewed and are negative. Physical Exam 2 Vital Signs: Vital Signs: Last Vital Signs Temp 97.2 F 06/19/24 15:39 Pulse 74 06/19/24 15:39 Resp 19 06/19/24 15:39 BP 97/58 L 06/19/24 15:39 Pulse Ox 92 06/19/24 15:39 O2 Del Method Nasal Cannula 06/19/24 15:39 O2 Flow Rate 2 06/19/24 15:39 Oxygen Flow Rate 2 06/15/24 17:53 BMI result Body Mass Index 16.9 Const: Other: General awake alert , frail, in no acute distress No nystagmus No sinus pressure Neck no JVD. CVS regular rate rhythm, Respiratory lungs diminished ,no respiratory distress, expiratory wheeze Gastrointestinal abdomen soft, non tender, bowel sounds audible, no guarding , no rigidity. Extremities no edema. Neuro non focal Skin no rash Psych appropriate affect Objective Data Active Medications Acetaminophen (Acetaminophen 325 Mg Tablet) 975 mg PO Q6H PRN PRN Reason: Pain, Mild (Pain Scale 1-3), fever or headache Albuterol Sulfate (Albuterol Sulfate (0.083%) 2.5 Mg/3 Ml Vial.Neb) 2.5 mg INHALE RQ4H WHILE AWAKE [facility] Last Admin: 06/19/24 15:04 Dose: 2.5 mg Documented By: GUSTABO Albuterol Sulfate (Albuterol Sulfate (0.083%) 2.5 Mg/3 Ml Vial.Neb) 2.5 mg INHALE Q2H PRN PRN Reason: Shortness of Breath/Wheezing Azithromycin (Azithromycin 250 Mg Tablet) 250 mg PO DAILY [facility] Last Admin: 06/19/24 08:53 Dose: 250 mg Documented By: RADHA Buprenorphine/Naloxone (Buprenorphine/Naloxone 8/2 Mg Film) 1.5 film SUBLINGUAL DAILY [facility] Last Admin: 06/19/24 08:56 Dose: 1.5 film Documented By: RADHA Cefuroxime Axetil (Cefuroxime Axetil 500 Mg Tablet) 500 mg PO BID [facility] Last Admin: 06/19/24 08:52 Dose: 500 mg Documented By: RADHA Clonazepam (Clonazepam 0.5 Mg Tablet) 0.25 mg PO TID PRN PRN Reason: Anxiety Last Admin: 06/19/24 12:32 Dose: 0.25 mg Documented By: RADHA Comments: MD kraus to give now Clopidogrel Bisulfate (Clopidogrel Bisulfate 75 Mg Tablet) 75 mg PO DAILY [facility] Last Admin: 06/19/24 08:53 Dose: 75 mg Documented By: RADHA Fluticasone/Umeclidinium/Vilanterol (Fluticasone/Umeclidinium/Vilanterol 200/62.5/25 Blst.W.Dev) 1 puff INHALE RDAILY [facility] Last Admin: 06/19/24 07:36 Dose: 1 puff Documented By: GUSTABO Guaifenesin (Guaifenesin La 600 Mg Tab.Er.12h) 600 mg PO BID [facility] Last Admin: 06/19/24 08:52 Dose: 600 mg Documented By: RADHA Guaifenesin/Dextromethorphan (Guaifenesin Dm 100/10/5 Ml 5 Ml Syrup) 10 ml PO Q6H PRN PRN Reason: Cough Last Admin: 06/18/24 08:54 Dose: 10 ml Documented By: RADHA Levothyroxine Sodium (Levothyroxine Sodium 125 Mcg Tablet) 125 mcg PO DAILY@0600 [facility] Last Admin: 06/19/24 06:16 Dose: 125 mcg Documented By: GABY Meclizine HCl (Meclizine Hcl 25 Mg Tablet) 25 mg PO Q8H PRN PRN Reason: dizziness Last Admin: 06/19/24 09:02 Dose: 25 mg Documented By: RADHA Mirtazapine (Mirtazapine 15 Mg Tablet) 15 mg PO BEDTIME [facility] Last Admin: 06/18/24 20:02 Dose: 15 mg Documented By: SOO Olanzapine (Olanzapine 5 Mg Tablet) 5 mg PO BEDTIME [facility] Last Admin: 06/18/24 20:03 Dose: 5 mg Documented By: SOO Ondansetron HCl (Ondansetron Hcl 4 Mg/2 Ml Vial) 4 mg IVPUSH Q6H PRN PRN Reason: Nausea and Vomiting Last Admin: 06/17/24 10:51 Dose: 4 mg Documented By: RADHA Prednisone (Prednisone 20 Mg Tablet) 20 mg PO DAILY [facility] Last Admin: 06/19/24 08:53 Dose: 20 mg Documented By: RADHA Roflumilast (Roflumilast 500 Mcg Tablet) 500 mcg PO DAILY [facility] Last Admin: 06/19/24 08:53 Dose: 500 mcg Documented By: RADHA Sertraline HCl (Sertraline Hcl 100 Mg Tablet) 100 mg PO DAILY [facility] Last Admin: 06/19/24 08:52 Dose: 100 mg Documented By: RADHA Sodium Chloride (0.9 % Sodium Chloride Flush 3 Ml Syringe) 3 ml IVFLUSH QSHIFT [facility] Last Admin: 06/19/24 15:23 Dose: 3 ml Documented By: RADHA Labs 06/16/24 06:17 06/16/24 06:17 Assessment and Plan (1) Pneumonia: Status: Acute (2) Chronic respiratory failure with hypoxia: Status: Acute (3) Anxiety: Status: Acute Plan 68 y/o woman admitted with: Acute exacerbation of COPD advanced dementia and pneumonia with acute on chronic hypoxic respiratory failure. dry cough, and shortness of breath improved Oxygenation dropped to mid 80s with ambulation, on 2 L of home oxygen keep finger oximetry 88-90% Chest x-ray showed increased right suprahilar opacities may be infectious/inflammatory in etiology continue bronchodilator therapy, DC IV steroids ,iv ceftriaxone and azithromycin and transitioned to by mouth prednisone and antibiotics, on antibiotics since 06/15, end date 06/20 Encourage out of bed to chair Obtain home O2 eval at a.m./hold PT eval since ambulating with steady gait. Chronic anxiety and depression. Continue home medications including Klonopin 0.5 mg t.i.d., sertraline , Remeron,and Zyprexa Strongly recommend to wean Klonopin likely contributing to dizziness Chronic dizziness orthostatic blood pressures unremarkable , meclizine 25 mg t.i.d. as needed. Moderate Protein-calorie malnutrition, BMI 16.9 kg/m2. Continue supplements Hypothyroidism. Continue levothyroxine. TSH 6.41. Recommend outpatient TSH follow-up Insomnia. Continue mirtazapine. Essential hypertension. Soft BP hold lisinopril PVD. Continue Plavix. Tobacco dependence history of smoking 3 pack of cigarettes a day times 40 years, quit smoking 1 week ago, counseling done. Pain medication dependency on Suboxone DVT prophylaxis: SCDs. Code status: Full Patient will need continued inpatient hospitalization for acute COPD exacerbation and pneumonia requiring IV steroids and IV antibiotics. Quality Stroke Does the patient have a stroke diagnosis?: No VTE Prior VTE?: No VTE Risk Level:: Medical - moderate - high VTE Device Contraindication: N/A - Device Ordered VTE Drug Contraindication: Treatment Not Indicated
[2024-06-19] MEDS: Mirtazapine 15 MG TABLET PO (20:51)
[2024-06-19] MEDS: OLANZapine 5 MG TABLET PO (20:54)
[2024-06-20] VITALS (13 sets, daily range): BP systolic 98–148; BP diastolic 56–65; PULSE 51–85; RESP 16–20; TEMP 36.2–36.7; O2SAT 93–98
[2024-06-20] MEDS: Levothyroxine Sodium 125 MCG TABLET PO (06:01)
[2024-06-20 06:47] LABS: Anion Gap 15 (12-20); Blood Urea Nitrogen 31 mg/dL (9-16); Calcium 9.7 mg/dL (8.4-10.2); Carbon Dioxide 37 mmol/L (22-29); Chloride 91 mmol/L (96-108); Creatinine Clr Calc Pharmacy 47.6; Estimated Glomerular Filt Rate > 60; Glucose Random 67 mg/dL (60-115); Magnesium 2.5 mg/dL (1.6-2.6); Potassium 5.6 mmol/L (3.3-5.1); Sodium 137 mmol/L (135-145)
[2024-06-20] MEDS: Fluticasone/Umeclidinium/Vilanterol 200/62.5/25 BLST.W.DEV 1 PUFF INHALE (07:35)
[2024-06-20] MEDS: Albuterol Sulfate (0.083%) 2.5 MG/3 ML VIAL.NEB INHALE ×4 (07:35→18:46)
[2024-06-20] MEDS: cefuroxime axetiL 500 MG TABLET PO ×2 (08:11→19:53)
[2024-06-20] MEDS: Clopidogrel Bisulfate 75 MG TABLET PO (08:11)
[2024-06-20] MEDS: predniSONE 20 MG TABLET PO (08:11)
[2024-06-20] MEDS: guaiFENesin LA 600 MG TAB.ER.12H PO ×2 (08:11→19:53)
[2024-06-20] MEDS: Roflumilast 500 MCG TABLET PO (08:11)
[2024-06-20] MEDS: clonazePAM 0.5 MG TABLET 0.25 MG PO ×3 (08:11→19:53)
[2024-06-20] MEDS: Sertraline HCL 100 MG TABLET PO (08:11)
[2024-06-20] MEDS: Buprenorphine/Naloxone 8/2 mg FILM 1.5 FILM SUBLINGUAL (08:11)
[2024-06-20] MEDS: 0.9 % Sodium Chloride Flush 3 ML SYRINGE IVFLUSH ×3 (08:12→19:54)
[2024-06-20] MEDS: Azithromycin 250 MG TABLET PO (08:15)
[2024-06-20 10:54] LABS: Anion Gap 15 (12-20); Blood Urea Nitrogen 29 mg/dL (9-16); Calcium 9.8 mg/dL (8.4-10.2); Carbon Dioxide 41 mmol/L (22-29); Chloride 88 mmol/L (96-108); Creatinine Clr Calc Pharmacy 49.6; Estimated Glomerular Filt Rate > 60; Glucose Fasting 89 mg/dL (60-99); Potassium 4.9 mmol/L (3.3-5.1); Sodium 139 mmol/L (135-145)
[2024-06-20] MEDS: acetaZOLAMIDE 250 MG TABLET PO ×2 (13:48→19:53)
--- NOTE | 2024-06-20 15:13 | P.PNIM_ITS ---
Subjective Subjective Date of Service: 06/20/24 Interval History: c/o dizziness breathing improved Review of Systems Review of Systems: Yes all other systems are reviewed and are negative Physical Exam 2 Vital Signs: Vital Signs: Last Vital Signs Temp 97.5 F 06/20/24 07:54 Pulse 63 06/20/24 11:34 Resp 18 06/20/24 11:34 BP 108/62 06/20/24 11:03 Pulse Ox 93 06/20/24 11:03 O2 Del Method Room Air 06/20/24 11:03 O2 Flow Rate 2 06/20/24 07:54 Oxygen Flow Rate 2 06/15/24 17:53 BMI result Body Mass Index 16.9 Gen: in no acute distress HEENT: sclera anicteric, moist mucus membranes Neck: supple Lungs: diminished Heart: regular rate and rhythm, no murmurs Abd: soft, non-tender, non-distended Ext: no edema Skin: warm/well-perfused Neuro: alert and oriented x3, no focal findings Psych: appropriate affect Objective Data Active Medications Acetaminophen (Acetaminophen 325 Mg Tablet) 975 mg PO Q6H PRN PRN Reason: Pain, Mild (Pain Scale 1-3), fever or headache Acetazolamide (Acetazolamide 250 Mg Tablet) 250 mg PO BID [facility] Stop: 06/20/24 21:01 Last Admin: 06/20/24 13:48 Dose: 250 mg Documented By: JEAN-CLAUDE Albuterol Sulfate (Albuterol Sulfate (0.083%) 2.5 Mg/3 Ml Vial.Neb) 2.5 mg INHALE RQ4H WHILE AWAKE [facility] Last Admin: 06/20/24 11:34 Dose: 2.5 mg Documented By: TRINITY Albuterol Sulfate (Albuterol Sulfate (0.083%) 2.5 Mg/3 Ml Vial.Neb) 2.5 mg INHALE Q2H PRN PRN Reason: Shortness of Breath/Wheezing Azithromycin (Azithromycin 250 Mg Tablet) 250 mg PO DAILY [facility] Last Admin: 06/20/24 08:15 Dose: 250 mg Documented By: JEAN-CLAUDE Buprenorphine/Naloxone (Buprenorphine/Naloxone 8/2 Mg Film) 1.5 film SUBLINGUAL DAILY [facility] Last Admin: 06/20/24 08:11 Dose: 1.5 film Documented By: JEAN-CLAUDE Cefuroxime Axetil (Cefuroxime Axetil 500 Mg Tablet) 500 mg PO BID [facility] Last Admin: 06/20/24 08:11 Dose: 500 mg Documented By: JEAN-CLAUDE Clonazepam (Clonazepam 0.5 Mg Tablet) 0.25 mg PO TID PRN PRN Reason: Anxiety Last Admin: 06/20/24 12:15 Dose: 0.25 mg Documented By: JEAN-CLAUDE Clopidogrel Bisulfate (Clopidogrel Bisulfate 75 Mg Tablet) 75 mg PO DAILY [facility] Last Admin: 06/20/24 08:11 Dose: 75 mg Documented By: JEAN-CLAUDE Fluticasone/Umeclidinium/Vilanterol (Fluticasone/Umeclidinium/Vilanterol 200/62.5/25 Blst.W.Dev) 1 puff INHALE RDAILY [facility] Last Admin: 06/20/24 07:35 Dose: 1 puff Documented By: JENNIFER Guaifenesin (Guaifenesin La 600 Mg Tab.Er.12h) 600 mg PO BID [facility] Last Admin: 06/20/24 08:11 Dose: 600 mg Documented By: JEAN-CLAUDE Guaifenesin/Dextromethorphan (Guaifenesin Dm 100/10/5 Ml 5 Ml Syrup) 10 ml PO Q6H PRN PRN Reason: Cough Last Admin: 06/18/24 08:54 Dose: 10 ml Documented By: RADHA Levothyroxine Sodium (Levothyroxine Sodium 125 Mcg Tablet) 125 mcg PO DAILY@0600 [facility] Last Admin: 06/20/24 06:01 Dose: 125 mcg Documented By: LASHELL Meclizine HCl (Meclizine Hcl 25 Mg Tablet) 25 mg PO Q8H PRN PRN Reason: dizziness Last Admin: 06/19/24 09:02 Dose: 25 mg Documented By: RADHA Mirtazapine (Mirtazapine 15 Mg Tablet) 15 mg PO BEDTIME [facility] Last Admin: 06/19/24 20:51 Dose: 15 mg Documented By: LASHELL Olanzapine (Olanzapine 5 Mg Tablet) 5 mg PO BEDTIME [facility] Last Admin: 06/19/24 20:54 Dose: 5 mg Documented By: LASHELL Ondansetron HCl (Ondansetron Hcl 4 Mg/2 Ml Vial) 4 mg IVPUSH Q6H PRN PRN Reason: Nausea and Vomiting Last Admin: 06/17/24 10:51 Dose: 4 mg Documented By: RADHA Prednisone (Prednisone 20 Mg Tablet) 20 mg PO DAILY [facility] Last Admin: 06/20/24 08:11 Dose: 20 mg Documented By: JEAN-CLAUDE Roflumilast (Roflumilast 500 Mcg Tablet) 500 mcg PO DAILY [facility] Last Admin: 06/20/24 08:11 Dose: 500 mcg Documented By: JEAN-CLAUDE Sertraline HCl (Sertraline Hcl 100 Mg Tablet) 100 mg PO DAILY [facility] Last Admin: 06/20/24 08:11 Dose: 100 mg Documented By: JEAN-CLAUDE Sodium Chloride (0.9 % Sodium Chloride Flush 3 Ml Syringe) 3 ml IVFLUSH QSHIFT [facility] Last Admin: 06/20/24 08:12 Dose: 3 ml Documented By: JEAN-CLAUDE Labs 06/16/24 06:17 06/20/24 10:06 Labs: Laboratory Results - last 24 hr 06/20/24 06/20/24 06:09 10:06 Anion Gap 15 15 Estim Creat Clear Calc 47.6 49.6 Estimated GFR > 60 > 60 Random Glucose 67 Fasting Glucose 89 Calcium 9.7 D 9.8 Magnesium 2.5 Assessment and Plan (1) Pneumonia: Status: Acute (2) Chronic respiratory failure with hypoxia: Status: Acute (3) Anxiety: Status: Acute Plan d6 68yo F with COPD admitted for exacerbation Acute/chronic hypoxic respiratory failure due to COPD exacerbation and possible pneumonia [R spurahilar opacities] - continue prednisone taper, cefuroxime + azithromycin for 1 more day, continue nebs + Trelegy + roflumilast chronic hypercapnic respiratory failure - appears compensated, will give 1 dose Diamox and recheck BMP/VBG in AM, should have outpt Pulm f/u mood disorder - continue mirtazapine, olanzapine, sertraline, clonazepam chronic dizziness - prn meclizine; recheck orthostatics mod pr/domenic malnutrition - supplements hypothyroidism - continue LT4 HTN - lisinopril on hold due to soft BP PVD - continue clopidogrel tobacco abuse - in remission chronic pain - continue Suboxone VTE ppx - enoxaparin dispo - anticipate home with VNA In clinical judgment, the patient requires continued inpatient hospitalization for the following reasons: dizziness Total time managing care of this patient today: 45 minutes. Quality Stroke Does the patient have a stroke diagnosis?: No VTE Prior VTE?: No VTE Risk Level:: Medical - moderate - high VTE Device Contraindication: N/A - Device Ordered VTE Drug Contraindication: Treatment Not Indicated
[2024-06-20] MEDS: Enoxaparin Sodium 40 MG/0.4 ML SYRINGE SUBCUT (16:20)
[2024-06-20] MEDS: OLANZapine 5 MG TABLET PO (19:53)
[2024-06-20] MEDS: Mirtazapine 15 MG TABLET PO (19:53)
[2024-06-21] VITALS (7 sets, daily range): BP systolic 98–138; BP diastolic 46–69; PULSE 54–85; RESP 18–20; TEMP 36.1–36.8; O2SAT 88–99
[2024-06-21] MEDS: Levothyroxine Sodium 125 MCG TABLET PO (06:09)
[2024-06-21] MEDS: clonazePAM 0.5 MG TABLET 0.25 MG PO (06:26)
[2024-06-21 06:46] LABS: Venous Blood Gas Refer to POC result
[2024-06-21 06:51] LABS: VBG Base Excess 6.5 mmol/L; VBG HCO3 30 mmol/L (22-26); VBG pCO2 40 mmHg; VBG pH 7.48 (7.32-7.43); VBG pO2 198 mmHg
[2024-06-21 07:01] LABS: Anion Gap 14 (12-20); Blood Urea Nitrogen 29 mg/dL (9-16); Carbon Dioxide 27 mmol/L (22-29); Chloride 97 mmol/L (96-108); Estimated Glomerular Filt Rate > 60; Glucose Random 76 mg/dL (60-115); Potassium 4.7 mmol/L (3.3-5.1); Sodium 133 mmol/L (135-145)
[2024-06-21] MEDS: Fluticasone/Umeclidinium/Vilanterol 200/62.5/25 BLST.W.DEV 1 PUFF INHALE (07:45)
[2024-06-21] MEDS: Albuterol Sulfate (0.083%) 2.5 MG/3 ML VIAL.NEB INHALE ×3 (07:47→15:18)
[2024-06-21] MEDS: Roflumilast 500 MCG TABLET PO (09:25)
[2024-06-21] MEDS: Meclizine HCl 25 MG TABLET PO (09:25)
[2024-06-21] MEDS: Clopidogrel Bisulfate 75 MG TABLET PO (09:25)
[2024-06-21] MEDS: guaiFENesin LA 600 MG TAB.ER.12H PO (09:26)
[2024-06-21] MEDS: predniSONE 20 MG TABLET PO (09:26)
[2024-06-21] MEDS: Buprenorphine/Naloxone 8/2 mg FILM 1.5 FILM SUBLINGUAL (09:26)
[2024-06-21] MEDS: cefuroxime axetiL 500 MG TABLET PO (09:26)
[2024-06-21] MEDS: Sertraline HCL 100 MG TABLET PO (09:26)
[2024-06-21] MEDS: Azithromycin 250 MG TABLET PO (09:26)
[2024-06-21] MEDS: 0.9 % Sodium Chloride Flush 3 ML SYRINGE IVFLUSH (09:27)
--- NOTE | 2024-06-21 10:20 | MHC.CLN ---
F/U PT IS MODERATELY MALNOURISHED PO INTAKE 75-100% DIET RX: REGULAR-APPROPRIATE PT RECEIVING ENSURE BID TO INCREASE KCALS SUPPLEMENT PROVIDES 700KCALS, 40G PROTEIN CONTINUE TO MONITOR PO INTAKE AND ENCOURAGE SUPPLEMENTS
[2024-06-21] MEDS: clonazePAM 0.5 MG TABLET PO (10:23)
--- NOTE | 2024-06-21 10:49 | W.MHC.F2F ---
Service Date Service Date: 06/21/24 Encounter Date of encounter: 06/21/24 Reasons for Services Signs and symptoms assessed: weakness, dizziness, vertigo, balance Reason for physical therapy: home safety and mobility, therapeutic exercises, restore joint function, gait/transfer training, assess need for DME and energy conservation MD Overseeing Care: Eddie Watkins Homebound: Leaving the home is medically contraindicated at this time without the asist of a device and/or another person due th the listed conditions above and below. Reason homebound: unsteady gait / fall risk, shortness of breath with minimal effort and weakness related to hospital stay Certification: Based on the above findings, I certify that this patient is confined to the home and needs intermittent [facility] care, physical therapy and/or speech therapy, or continues to need occupational therapy. The patient is under my care, and I have initiated the establishment of the plan of care. The patient will be followed by a physician who will periodically review the plan of care. Time Spent With Patient Time: Total time managing care of this patient today ____ minutes.
--- NOTE | 2024-06-21 11:00 | P.DS_ITS ---
DS: Providers Provider Date of Service: 06/21/24 Date of admission: 06/15/24 19:48 Date of discharge: 06/21/24 Primary care physician: Eddie Watkins MD DS: Diagnosis Discharge Diagnosis (1) Pneumonia: Status: Acute (2) Acute and chronic respiratory failure with hypoxia: Status: Acute (3) COPD exacerbation: Status: Acute (4) Benign positional vertigo: Status: Acute (5) Moderate protein-calorie malnutrition: Status: Acute DS: Summary Hospital Course Hospital Course: From the history and physical by the admitting hospitalist, Sierra Farah MD, 06/15/24: Gisela Amaya is a 68 years old woman with past medical history significant for COPD on home oxygen 2L/min, depression, anxiety and essential hypertension was brought to the emergency department due to worsening shortness of breath over the last several days associated with productive cough. She denies fever or chills. She also denied chest pain, palpitations, headache, abdominal pain, nausea or vomiting. Patient reported multiple falls. While interviewing her she persistently asking for clonazepam. According to ED triage note granddaughter feels that the patient may be using her home medications. Hallucination was also reported. Denied any suicide ideation. The patient did not report any acute urinary symptoms. She has an ongoing tobacco smoker -last time she smoked was a week ago and smoking 5 cigarettes. Denied alcohol abuse or illicit drug use. In the ED, she was found to have O2 sats of 87%. She is currently on 2 liters/minute of supplemental oxygen satting at 90%. There is also tachypnea and tachycardia. There is no hypotension. Blood workup showed no leukocytosis. Hemoglobin is 14.4 and platelets 223. Venous blood gas showed a pH of 7.33 and pCO2 of 93. HC03 is 49. There are no significant electrolyte imbalances other than hypokalemia of 89. Creatinine is 0.68. There is no lactic acidosis. LFTs are normal except for slight elevation of AST. ETOH is less than 10. COVID-19, influenza and RSV testing is negative. CXR showed increased right suprahilar opacities that may be infectious/inflammatory in etiology. ED tx: DuoNeb, ceftriaxone 1 g IV, Solu-Medrol 125 mg IV, azithromycin 500 mg IV, NS 1.5 L bolus. 68yo F with COPD admitted to the medical-surgical unit for exacerbation with R- sided suprahilar pneumonia. She was treated with steroid taper and antibiotics [cefuroxime plus azithromycin]. She completed 5 days of antibiotic treatment and was discharged on prednisone taper over 6 days. 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 She should be on O2 with goal SaO2 of 88-92% given history of CO2 retention. She was also found to have positional vertigo and prescribed meclizine. Home VNA services for PT were arranged and vestibular therapy could also be considered. She should take supplements like Ensure or Boost for malnutrition as well. Time Attestation Discharge Coordination Time (in mins): 40 Quality: Safe Use of Opioids Does Pt have an Active Cancer Diagnosis on the Problem List?: No Quality: Stroke Does the patient have a stroke diagnosis?: No Physical Exam Vital Signs: Vital Signs: Last Vital Signs Temp 96.9 F 06/21/24 07:54 Pulse 54 06/21/24 07:54 Resp 18 06/21/24 07:54 BP 116/57 L 06/21/24 07:54 Pulse Ox 99 06/21/24 07:54 O2 Del Method Nasal Cannula 06/21/24 07:54 O2 Flow Rate 2 06/21/24 07:54 Oxygen Flow Rate 2 06/15/24 17:53 BMI result Body Mass Index 16.9 Gen: in no acute distress HEENT: sclera anicteric, moist mucus membranes Neck: supple Lungs: clear to auscultation bilaterally Heart: regular rate and rhythm, no murmurs Abd: soft, non-tender, non-distended Ext: no edema Skin: warm/well-perfused Neuro: alert and oriented x3, no focal findings Psych: appropriate affect DS: Data Data Completed and Pending Completed studies during hospitalization [Text1]: Laboratory Results WBC 5.4 X10*3/uL (4.8-10.8) 06/16/24 06:17 RBC 3.65 X10*6/uL (4.20-5.50) L 06/16/24 06:17 Hgb 12.2 g/dl (12.0-16.0) 06/16/24 06:17 Hct 36.3 % (37.0-47.0) L 06/16/24 06:17 MCV 99.5 fL (80.0-98.0) H 06/16/24 06:17 MCH 33.4 pg (27.0-33.0) H 06/16/24 06:17 MCHC 33.6 g/dl (31.0-35.0) 06/16/24 06:17 RDW 13.9 % (11.0-16.0) 06/16/24 06:17 Plt Count 201 X10*3/uL (160-400) 06/16/24 06:17 MPV 9.5 fL (9.4-12.3) 06/16/24 06:17 Immature Gran % (Auto) 0.7 % (0.0-0.4) H 06/16/24 06:17 Neut % (Auto) 81.1 % (45-73) H 06/16/24 06:17 Lymph % (Auto) 12.8 % (20-40) L 06/16/24 06:17 [place] % (Auto) 4.6 % (2-11) 06/16/24 06:17 Eos % (Auto) 0.2 % (0-4) 06/16/24 06:17 Baso % (Auto) 0.6 % (0-2) 06/16/24 06:17 Lymph # (Auto) 0.7 X10*3/uL (1.2-4.9) L 06/16/24 06:17 [place] # (Auto) 0.3 X10*3/uL (0.1-1.2) 06/16/24 06:17 Eos # (Auto) 0.0 X10*3/uL (0.0-0.4) 06/16/24 06:17 Baso # (Auto) 0.0 X10*3/uL (0.0-0.2) 06/16/24 06:17 Abs Immat Gran (auto) 0.04 X10*3/uL (0.00-0.03) H 06/16/24 06:17 Absolute Neuts (auto) 4.4 x10*3/uL (2.0-8.3) 06/16/24 06:17 Absolute Nucleated RBC 0.000 X10*3/uL (0.0-0.012) 06/16/24 06:17 Nucleated RBC % (auto) 0.0 /100WBC (0.0-0.2) 06/16/24 06:17 VBG pH 7.48 (7.32-7.43) H 06/21/24 06:44 VBG pCO2 40 mmHg 06/21/24 06:44 VBG pO2 198 mmHg 06/21/24 06:44 VBG HCO3 30 mmol/L (22-26) H 06/21/24 06:44 VBG O2 Saturation 100.0 % 06/21/24 06:44 VBG Base Excess 6.5 mmol/L 06/21/24 06:44 Sodium 133 mmol/L (135-145) L 06/21/24 06:37 Potassium 4.7 mmol/L (3.3-5.1) 06/21/24 06:37 Chloride 97 mmol/L (96-108) 06/21/24 06:37 Carbon Dioxide 27 mmol/L (22-29) 06/21/24 06:37 Anion Gap 14 (12-20) 06/21/24 06:37 BUN 29 mg/dL (9-16) H 06/21/24 06:37 Creatinine 0.83 mg/dL (0.5-1.4) 06/21/24 06:37 Estim Creat Clear Calc 43.0 06/21/24 06:37 Estimated GFR > 60 06/21/24 06:37 Random Glucose 76 mg/dL (60-115) 06/21/24 06:37 Fasting Glucose 89 mg/dL (60-99) 06/20/24 10:06 Lactic Acid 0.9 mmol/L (0.5-2.0) 06/15/24 18:18 Calcium 9.0 mg/dL (8.4-10.2) D 06/21/24 06:37 Magnesium 2.5 mg/dL (1.6-2.6) 06/20/24 06:09 Total Bilirubin 0.3 mg/dL (0.0-1.0) 06/16/24 06:17 Direct Bilirubin 0.2 mg/dL (0.0-0.5) 06/15/24 18:18 AST 32 U/L (5-31) H 06/16/24 06:17 ALT 7 U/L (0-31) 06/16/24 06:17 Alkaline Phosphatase 71 U/L (39-117) 06/16/24 06:17 Troponin I High Sens 9.4 ng/L (<3.5-17.0) 06/15/24 18:18 B-Natriuretic Peptide 184 pg/mL (<100) H 06/15/24 18:18 Total Protein 6.2 g/dL (6.5-8.0) L 06/16/24 06:17 Albumin 3.0 g/dL (3.5-5.0) L 06/16/24 06:17 TSH 6.41 uIU/mL (0.32-4.0) H 06/15/24 18:18 Ethyl Alcohol < 10 mg/dL 06/15/24 18:18 COVID-19 (TIP) Negative (Negative) 06/15/24 18:18 COVID-19 Clin Com See Note 06/15/24 18:18 Influenza Type A (MAGALIE) Negative (Negative) 06/15/24 18:18 Influenza Type B (MAGALIE) Negative (Negative) 06/15/24 18:18 Influenza A & B Note See Note 06/15/24 18:18 Impressions Chest X-Ray 06/15/24 17:54 IMPRESSION: Increased right suprahilar opacities may be infectious/inflammatory in etiology. Electronically signed by: Jennifer Apodaca MD 06/15/2024 06:30 PM EDT RP Discharge Plan Discharge Anticipated Discharge Date/Time: 06/21/24 10:50 Patient Disposition: Home Health Service Discharge Diagnosis: COPD exacerbation pneumonia chronic respiratory failure vertigo malnutrition Referrals: [facility] [Outside] - 1 Week Eddie Watkins MD [Primary Care Provider] - 1 Week Discharge Medications: New meclizine 25 mg Tablet 25 mg PO Q8H PRN (Reason: dizziness) Qty: 30 0RF prednisone 5 mg tablet See Rx Instructions .ROUTE .COMPLEX Qty: 12 0RF Rx Instructions: 15 mg daily for 2 days, then 10 mg daily for 2 days, then 5 mg daily for 2 days Continued albuterol sulfate 2.5 mg /3 mL (0.083 %) solution for nebulization 2.5 mg inhalation QID PRN (Reason: Wheezing) (DME) Walker with wheels and baske, seat, and break See Rx Instructions .Route .MEDSUPPLY Qty: 1 0RF Rx Instructions: Walker with wheels, break, seat and basket sertraline 100 mg tablet 100 mg PO DAILY 90 Days Qty: 90 0RF (DME) Pant Liners, Large Pad See Rx Instructions .Route Qty: 96 5RF Rx Instructions: Change as needed, up to 3 per day olanzapine 5 mg tablet 5 mg PO BEDTIME mirtazapine 15 mg tablet 15 mg PO BEDTIME albuterol sulfate [Ventolin HFA] 90 mcg/actuation HFA aerosol inhaler 2 puff INHALATION Q6H PRN (Reason: Shortness Of Breath Or Wheezing) roflumilast 500 mcg tablet 500 mcg PO DAILY levothyroxine 125 mcg tablet 125 mcg PO DAILY@0600 buprenorphine-naloxone 8-2 mg film 1.5 film sublingual DAILY clonazepam 0.5 mg tablet 0.25 mg PO TID PRN (Reason: Anxiety) Trelegy Ellipta 200-62.5-25 mcg blister with device 1 ea inhalation DAILY clopidogrel [Plavix] 75 mg tablet 75 mg PO DAILY 90 Days Qty: 90 1RF lisinopril 10 mg tablet 10 mg PO DAILY 90 Days Qty: 90 1RF Discharge Orders: Discharge Order (Routine); Ordered 06/21/24 Ordered By: Laura Watts Diet: Advance to usual diet Activity on Discharge: As tolerated Stand Alone Forms: Patient Portal Discharge page Print Language: Mongolian Care Plan Goals: respiratory health Health Concerns: COPD exacerbation pneumonia chronic respiratory failure vertigo malnutrition Plan of Treatment: home with VNA services as-needed meclizine for vertigo and consider vestibular therapy take 1 can of Ensure twice daily prednisone taper over 6 days: 15 mg daily for 2 days, then 10 mg daily for 2 days, then 5 mg daily for 2 days continue roflumilast, respiratory inhalers and treatments 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 Return to the hospital if you experience recurrent or worsening symptoms. Assessment: See Discharge Summary.
--- NOTE | 2024-06-21 11:15 | W.MHC.F2F ---
Service Date Service Date: 06/21/24 Encounter Date of encounter: 06/21/24 Reasons for Services Signs and symptoms assessed: weakness, balance, vertigo Reason for physical therapy: home safety and mobility, therapeutic exercises, gait/transfer training, assess need for DME, ADL training and energy conservation Reason for occupational therapy: home safety and mobility, therapeutic exercises, gait/transfer training, assess need for DME, ADL training, energy conservation and other (vestibular therapy) MD Overseeing Care: Eddie Watkins Homebound: Leaving the home is medically contraindicated at this time without the asist of a device and/or another person due th the listed conditions above and below. Reason homebound: unsteady gait / fall risk, shortness of breath with minimal effort and weakness related to hospital stay Certification: Based on the above findings, I certify that this patient is confined to the home and needs intermittent intermediate care, physical therapy and/or speech therapy, or continues to need occupational therapy. The patient is under my care, and I have initiated the establishment of the plan of care. The patient will be followed by a physician who will periodically review the plan of care. Time Spent With Patient Time: Total time managing care of this patient today ____ minutes.
--- NOTE | 2024-06-21 11:32 | MHC.CM.PN ---
Second IMM given 06/21. Pt is medically cleared for discharge home with new [facility] services and resumption of home O2 through [facility], pts family will transport her home today.
== END 2024-06-21 17:32 | disposition home health service (06) | DRG 193 ==
LOC: HO.ED 22:53 → HO.EDOVER 23:15 → HO.IMC 06-16 00:41
PROVIDERS: Hospitalist; Admitting Provider Internal Medicine; Emergency Provider Emergency Medicine; PCP Internal Medicine; Visit Provider Family Medicine
DX: J18.9 Pneumonia, unspecified organism (principal); J96.21 Acute and chronic respiratory failure with hypoxia; J96.22 Acute and chronic respiratory failure with hypercapnia; J44.0 Chronic obstructive pulmonary disease with (acute) lower respiratory infection; E44.0 Moderate protein-calorie malnutrition; Z68.1 Body mass index [BMI] 19.9 or less, adult; F11.20 Opioid dependence, uncomplicated; J44.1 Chronic obstructive pulmonary disease with (acute) exacerbation; F41.9 Anxiety disorder, unspecified; F32.A Depression, unspecified; I73.9 Peripheral vascular disease, unspecified; G47.00 Insomnia, unspecified; Z99.81 Dependence on supplemental oxygen; F03.90 Unspecified dementia, unspecified severity, without behavioral disturbance, psychotic disturbance, mood disturbance, and anxiety; H81.10 Benign paroxysmal vertigo, unspecified ear; E03.9 Hypothyroidism, unspecified; Z20.822 Contact with and (suspected) exposure to COVID-19; Z79.02 Long term (current) use of antithrombotics/antiplatelets; Z79.51 Long term (current) use of inhaled steroids; Z79.890 Hormone replacement therapy; Z79.899 Other long term (current) drug therapy
CPT/HCPCS: 36415; 71045; 80048; 80053; 80076; 80307; 82803; 83605; 83735; 83880; 84443; 84484; 85025; 87040; 87502; 87635; 93005; 94640; 94660; 97162; 99285; J0456; J0696; J1650; J2405; J2470; J2919

== ENCOUNTER → 2024-06-15 17:54 | Outpatient (BNV) | payer MEDICARE, MEDICAID, SELFPAY | PROVIDERS: Admitting Provider Internal Medicine; Emergency Provider Emergency Medicine; PCP Internal Medicine; Visit Provider Internal Medicine | DX: R06.02 Shortness of breath (principal) | CPT/HCPCS: 93010 ==

== ENCOUNTER → 2024-06-15 19:00 | Outpatient (BNV) | payer MEDICARE, MEDICAID, SELFPAY | PROVIDERS: Emergency Provider Emergency Medicine; PCP Internal Medicine; Visit Provider Internal Medicine | DX: J18.9 Pneumonia, unspecified organism (principal); J96.21 Acute and chronic respiratory failure with hypoxia; J44.1 Chronic obstructive pulmonary disease with (acute) exacerbation; H81.10 Benign paroxysmal vertigo, unspecified ear; E44.0 Moderate protein-calorie malnutrition | CPT/HCPCS: 99223; 99232; 99233; 99239; G0180 ==

== ENCOUNTER 2024-06-15 19:48 | Outpatient (BNV) | payer MEDICARE, MEDICAID, SELFPAY | END 2024-06-18 14:21 | PROVIDERS: Admitting Provider Internal Medicine; Emergency Provider Emergency Medicine; PCP Internal Medicine; Visit Provider Internal Medicine Cardiovascular Disease | DX: R07.9 Chest pain, unspecified (principal) | CPT/HCPCS: 93010 ==

== ENCOUNTER 2024-07-24 15:25 | Inpatient (IN) | payer MEDICARE, MEDICAID, SELFPAY ==
[2024-07-24] VITALS (15 sets, daily range): BP systolic 94–141; BP diastolic 40–86; PULSE 52–104; RESP 12–24; TEMP 36.3–38.5; O2SAT 92–97; BMI 20.9
--- NOTE | ~2024-07-24 | XR_ITS ---
EXAMINATION: XR CHEST CLINICAL INFORMATION: Sepsis COMPARISON: Chest radiograph 06/15/2024, CT chest 11/12/2020 TECHNIQUE: Frontal view of the chest was obtained. FINDINGS: Heart size is normal. Again seen are chronic interstitial changes. There is a new focal patchy density seen in the retrocardiac region (see saved tse images). No pleural effusions seen.] Accessory azygos fissure is again noted. Severe emphysematous changes are better appreciated on the CT scan. XR/XR chest 1V IMPRESSION: New patchy density in the retrocardiac region. This could represent a small area of pneumonia. Electronically signed by: Hal Dickey MD 07/24/2024 07:25 PM [facility]
--- NOTE | 2024-07-24 16:14 | ECG_ITS ---
Test Reason : sepsis Blood Pressure : / mmHG Vent. Rate : 092 BPM Atrial Rate : 092 BPM P-R Int : 128 ms QRS Dur : 082 ms QT Int : 332 ms P-R-T Axes : 083 076 067 degrees QTc Int : 410 ms Normal sinus rhythm Normal ECG When compared with ECG of 18-JUN-2024 14:21, No significant change was found Referred By: Adelaida Alves Electronically Signed By:JOVITA GERARD MD
--- NOTE | 2024-07-24 16:22 | ED.GENADULT ---
HPI - General Adult General Chief complaint: Dyspnea Stated complaint: SOB Time Seen by Provider: 07/24/24 16:13 Source: patient and EMS Mode of arrival: EMS Limitations: no limitations History of Present Illness ED Provider: DR. Alves HPI narrative: A 68-year-old female significant for COPD on supplemental oxygen 2 L per minute 06/03 at home anxiety, essential hypertension her oxygen at home felt difficulty breathing, increased cough with greenish sputum, and increased wheezing. Patient overall is a limited historian stated that she feels okay. No sick contacts, no recent travel, no recent use antibiotic. Patient initially meets criteria for sepsis. Related Data Home Medications ?Medication ?Instructions ?Recorded ?Confirmed albuterol sulfate 2.5 mg/3 mL 2.5 mg inhalation QID PRN Wheezing 08/25/20 06/26/24 (0.083 %) solution for nebulization buprenorphine 8 mg-naloxone 2 mg 1.5 film sublingual DAILY 10/29/22 06/26/24 sublingual film clonazepam 0.5 mg tablet 0.25 mg PO TID PRN Anxiety 10/29/22 06/26/24 fluticasone fur. 200 mcg-umeclid 1 ea inhalation DAILY 01/05/24 06/26/24 62.5 mcg-vilant 25 mcg inhalat.powder (Trelegy Ellipta) albuterol sulfate 90 mcg/actuation 2 puff inhalation Q6H PRN 06/16/24 06/26/24 aerosol inhaler (Ventolin HFA) Shortness Of Breath Or Wheezing levothyroxine 125 mcg tablet 125 mcg PO DAILY@0600 06/16/24 06/26/24 mirtazapine 15 mg tablet 15 mg PO BEDTIME 06/16/24 06/26/24 olanzapine 5 mg tablet 5 mg PO BEDTIME 06/16/24 06/26/24 roflumilast 500 mcg tablet 500 mcg PO DAILY 06/16/24 06/26/24 Previous Rx's ?Medication ?Instructions ?Recorded Walker with wheels and baske, #1 ea 05/04/21 seat, and break sertraline 100 mg tablet 100 mg PO DAILY 90 days #90 tabs 02/28/23 incontinence pad, liner, disp #96 ea 02/07/24 (Pant Liners, Large pads) meclizine 25 mg tablet 25 mg PO Q8H PRN dizziness #30 tabs 06/21/24 prednisone 5 mg tablet See Rx Instructions .Route 06/21/24 .COMPLEX #12 tabs lisinopril 10 mg tablet 10 mg PO DAILY 90 days #90 tabs 07/08/24 clopidogrel 75 mg tablet (Plavix) 75 mg PO DAILY bilateral leg 07/09/24 stents 90 days #90 tabs Allergies Allergy/AdvReac Type Severity Reaction Status Date / Time codeine Allergy Unknown hives Verified 07/24/24 15:52 NSAIDS (Non-Steroidal AdvReac Mild On blood Verified 06/15/24 17:55 Anti-Inflamma thinners Review of Systems Review of Systems: All other systems are reviewed and are negative Constitutional: Reports as per HPI and Reports no additional constitutional complaints Eyes: Reports as per HPI and Reports no additional eye complaints Reports system reviewed and no additional complaints, except as documented Cardiovascular: Reports as per HPI and Reports no additional cardiovascular complaints Respiratory: Reports as per HPI and Reports no additional respiratory complaints Gastrointestinal: Reports as per HPI and Reports no additional gastrointestinal complaints Genitourinary: Reports no additional female genitourinary complaints Musculoskeletal: Reports no additional musculoskeletal complaints Skin/Breast: Reports system reviewed and no additional complaints, except as docu Psychiatric: Reports no additional psychiatric complaints Endocrine: Reports no additional endocrine complaints Hematologic/Lymphatic: Reports no additional hematologic/lymphatic complaints Allergic/Immunologic: Reports no additional allergic/immunologic complaints Reports system reviewed and no additional complaints, except as documented and Reports Abnormal speech present [facility] Past Medical History Medical History Hypertension, essential Depression, major, recurrent O2 dependent COPD, severe Surgical History History of surgery Amputated toe Hx of cholecystectomy History of appendectomy Family History Family History Father No problems noted. Mother Stomach cancer Brother No problems noted. Brother No problems noted. Brother No problems noted. Brother No problems noted. Brother No problems noted. Brother No problems noted. Sister No problems noted. Sister No problems noted. Sister No problems noted. Sister No problems noted. Social History Social History Household Members: Family Housing: Apartment Do you presently have visiting nurse or other home services: No Patient Tobacco Use Status: Refuse Tobacco use screen Tobacco use type: Cigarette Cigarettes Per Day: 3 e-Cigarette/Vaping Use: Never Used Advance Directives: No Advance Directives Information Provided: Yes service: No Current occupational status: retired and disabled Cognitive needs: No Hearing needs: No Vision needs: No Physical Exam ED Vital Signs: Vital Signs - 24 hr 07/24/24 15:50 07/24/24 16:12 07/24/24 17:33 Temperature 99 F 101.3 F H Pulse Rate 94 104 H 83 Respiratory Rate 24 H 24 H 18 Blood Pressure 141/81 H 110/70 Pulse Oximetry 94 Oxygen Delivery Method Nasal Cannula Oxygen Flow Rate 07/24/24 17:38 07/24/24 18:10 07/24/24 18:50 Temperature 99.9 F Pulse Rate 100 92 76 Respiratory Rate 20 18 18 Blood Pressure 130/69 121/86 120/70 Pulse Oximetry 93 92 94 Oxygen Delivery Method Nasal Cannula Nasal Cannula Nasal Cannula Oxygen Flow Rate 4 4 4 07/24/24 19:18 07/24/24 19:20 07/24/24 19:44 Temperature 99.2 F 99.2 F 98.3 F Pulse Rate 75 75 75 Respiratory Rate 18 18 22 H Blood Pressure 115/69 115/69 102/60 Pulse Oximetry 92 Oxygen Delivery Method Nasal Cannula Nasal Cannula Oxygen Flow Rate 4 4 07/24/24 19:52 Temperature 97.8 F Pulse Rate 72 Respiratory Rate 14 Blood Pressure 102/60 Pulse Oximetry 94 Oxygen Delivery Method Nasal Cannula Oxygen Flow Rate 4 BMI result Body Mass Index 20.9 Vital signs have been reviewed and appear to be correct. Blood pressure elevated. Heart rate normal. Respiratory rate elevated. Temperature elevated. Oxygen saturation normal. Appearance: Alert. Oriented X3. No acute distress. Head: Normal external exam. Normocephalic. Atraumatic. No Martinez signs noted. No raccoon eyes noted Eyes: PERRLA. EOMI. Conjunctiva and sclera normal. Eyelids normal. ENT: TM's Normal. Pharynx normal. Uvula midline. Moist mucous membranes. No trismus noted. No drooling noted. No muffled voice noted. Neck: Normal inspection. Neck supple. FROM. No adenopathy. Thyroid Normal. No meningeal signs. No neck mass noted. CVS: Normal heart rate and rhythm. Heart sound normal. No murmurs noted. Pulses normal throughout. Respiratory: Mild respiratory distress, diffuse mild expiratory wheezing with prolonged expiration, No accessory muscle usage noted or decreased air movement noted. Abdomen: Soft and nontender. Bowel sounds normal in all 4 quadrants. No distention noted. No organomegaly noted. No visible injury noted. Back: No CVA tenderness. Full range of motion noted. Skin: Skin warm and dry. Normal skin color. Normal skin turgor. No rashes/lesions/lacerations noted. Extremities: No lower extremity edema. Extremities exhibit normal range of motion. Extremities nontender. Neuro: Oriented X 3. Cranial nerve exam: II-XII are grossly intact No motor deficit. No sensory deficit. Reflexes normal. Course Reevaluation(s) Reevaluation #1: COPD exacerbation/pneumonia with sepsis IV fluids, bronchodilator, ceftriaxone, doxycycline, magnesium, and Solu-Medrol. Time: 19:41 Reevaluation #2: Repeat ABG showed patient in acute respiratory acidosis with hypercarbia claustrophobic and would like a not use BiPAP machine after discussing other alternative of the patient patient agreed to try BiPAP after getting some sedation will prescribe 1 mg of Ativan before the BiPAP attempt, and will respiratory monitoring. Time: 20:34 Reevaluation #3: Patient now is on BiPAP appeared comfortable and relaxed, case discussed with Dr. Pineda who recommended to keep the patient on BiPAP for couple hours then repeat ABG. signed out to Dr. Mccord Time: 20:44 Medications Administered Discontinued Medications Generic Name Dose Route Start Last Admin Trade Name Freq PRN Reason Stop Dose Admin Acetaminophen 650 mg 07/24/24 16:40 07/24/24 17:34 Acetaminophen 325 Mg Tablet PO 07/24/24 16:41 Not Given ONCE ONE Acetaminophen 650 mg 07/24/24 17:34 07/24/24 18:01 Acetaminophen Supp 650 Mg Supp.Rect SC 07/24/24 17:35 650 mg ONCE ONE Administration Ceftriaxone Sodium 1 gm 07/24/24 16:13 07/24/24 16:35 Ceftriaxone Sodium 1 Gm Vial IVPUSH 07/24/24 16:14 1 gm ONCE ONE Administration Albuterol Sulfate 2.5 mg/ 0 mg 07/24/24 17:28 07/24/24 17:33 Albuterol/Ipratropium 3 ml INHALE 07/24/24 17:29 5 dose ONCE ONE Administration Sodium Chloride 1,000 mls @ 999 mls/hr 07/24/24 16:13 07/24/24 18:46 Ns IV 07/24/24 17:13 Infused .Q1H1M ONE Infusion Magnesium Sulfate/Dextrose 1 gm in 100 mls @ 100 mls/hr 07/24/24 16:13 07/24/24 17:34 Magnesium Sulfate/D5w IV 07/24/24 17:12 Infused ONCE ONE Infusion Doxycycline Hyclate 100 mg/ 250 mls @ 166.67 mls/hr 07/24/24 16:13 07/24/24 19:16 Sodium Chloride IV 07/24/24 17:42 Infused ONCE ONE Infusion Lorazepam 1 mg 07/24/24 20:33 07/24/24 20:36 Lorazepam 2 Mg/Ml Vial IVPUSH 07/24/24 20:34 1 mg ONCE ONE Administration Methylprednisolone Sodium Succinate 125 mg 07/24/24 16:13 07/24/24 16:35 Methylprednisolone Sod Succ 125 Mg/2 Ml Vial IVPUSH 07/24/24 16:14 125 mg ONCE ONE Administration Medical Decision Making Differential Diagnosis Differential Diagnoses: The differential diagnosis associated with the presentation includes (Pneumonia, pneumothorax, pleural effusion, ACS, sepsis, lactic acidosis, viral upper respiratory infection, COPD exacerbation, respiratory failure.) Admission/Observation Consideration of admission/observation: Escalation of care including admission/observation considered Consult Healthcare Provider Management of the patient was discussed with: Hospitalist (Dr. Galvan) Lab Data MDM Lab Attestation statement: I reviewed the patient's lab results. 07/24/24 16:21 07/24/24 16:21 Labs: Lab Results 07/24/24 07/24/24 07/24/24 Range/Units 16:20 16:21 16:30 WBC 9.1 (4.8-10.8) X10*3/uL RBC 4.19 L (4.20-5.50) X10*6/uL Hgb 12.8 (12.0-16.0) g/dl Hct 41.7 (37.0-47.0) % MCV 99.5 H (80.0-98.0) fL MCH 30.5 (27.0-33.0) pg MCHC 30.7 L (31.0-35.0) g/dl RDW 14.0 (11.0-16.0) % Plt Count 137 L D (160-400) X10*3/uL MPV 10.1 (9.4-12.3) fL Immature Gran % (Auto) 0.4 (0.0-0.4) % Neut % (Auto) 84.1 H (45-73) % Lymph % (Auto) 6.2 L (20-40) % [place] % (Auto) 8.5 (2-11) % Eos % (Auto) 0.4 (0-4) % Baso % (Auto) 0.4 (0-2) % Lymph # (Auto) 0.6 L (1.2-4.9) X10*3/uL [place] # (Auto) 0.8 (0.1-1.2) X10*3/uL Eos # (Auto) 0.0 (0.0-0.4) X10*3/uL Baso # (Auto) 0.0 (0.0-0.2) X10*3/uL Abs Immat Gran (auto) 0.04 H (0.00-0.03) X10*3/uL Absolute Neuts (auto) 7.6 (2.0-8.3) x10*3/uL Absolute Nucleated RBC 0.000 (0.0-0.012) X10*3/uL Nucleated RBC % (auto) 0.0 (0.0-0.2) /100WBC PT 10.7 L (10.9-12.4) SEC INR 0.9 (0.9-1.1) O2 Saturation % ABG pH at Pt Temp (7.35-7.45) ABG pCO2 at Pt Temp (32-45) mmHg ABG pO2 at Pt Temp (83-108) mmHg ABG HCO3 (22-26) mmol/L ABG Base Excess (Actual) mmol/L VBG pH 7.30 L (7.32-7.43) VBG pCO2 91 mmHg VBG pO2 45 mmHg VBG HCO3 45 H (22-26) mmol/L VBG O2 Saturation 72.0 % VBG Base Excess 14.2 mmol/L Sodium 141 (135-145) mmol/L Potassium 5.2 H (3.3-5.1) mmol/L Chloride 96 (96-108) mmol/L Carbon Dioxide 40 H* D (22-29) mmol/L Anion Gap 10 L (12-20) BUN 17 H (9-16) mg/dL Creatinine 0.75 (0.5-1.4) mg/dL Estim Creat Clear Calc 45.1 Estimated GFR > 60 Random Glucose 110 (60-115) mg/dL Lactic Acid 0.7 (0.5-2.0) mmol/L Calcium 10.5 H D (8.4-10.2) mg/dL Total Bilirubin 0.6 (0.0-1.0) mg/dL Direct Bilirubin 0.2 (0.0-0.5) mg/dL AST 52 H (5-31) U/L ALT 28 (0-31) U/L Alkaline Phosphatase 88 (39-117) U/L Troponin I High Sens 5.2 (<3.5-17.0) ng/L B-Natriuretic Peptide 49 (<100) pg/mL Total Protein 7.8 (6.5-8.0) g/dL Albumin 4.3 (3.5-5.0) g/dL Lipase 9 (8-78) U/L Urine Color Urine Appearance Urine pH (5.0-9.0) Ur Specific [place] (1.005-1.025) Urine Protein (Neg-Trace) mg/dL Urine Glucose (UA) (Negative) mg/dL Urine Ketones (Negative) mg/dL Urine Blood (Negative) Urine Nitrite (Negative) Ur Leukocyte Esterase (Negative) Urine RBC (0-2) /HPF Urine WBC (0-5) /HPF Ur Squamous Epith Cells (0-2) /HPF Urine Bacteria (None Seen) Hyaline Casts (0-2) /LPF Influenza Type A (PCR) NEGATIVE (Negative) Influenza Type B (PCR) NEGATIVE (Negative) RSV RNA Qual (PCR) NEGATIVE (Negative) SARS-CoV-2 RNA (RT-PCR) NEGATIVE (Negative) 07/24/24 07/24/24 Range/Units 18:11 20:09 WBC (4.8-10.8) X10*3/uL RBC (4.20-5.50) X10*6/uL Hgb (12.0-16.0) g/dl Hct (37.0-47.0) % MCV (80.0-98.0) fL MCH (27.0-33.0) pg MCHC (31.0-35.0) g/dl RDW (11.0-16.0) % Plt Count (160-400) X10*3/uL MPV (9.4-12.3) fL Immature Gran % (Auto) (0.0-0.4) % Neut % (Auto) (45-73) % Lymph % (Auto) (20-40) % [place] % (Auto) (2-11) % Eos % (Auto) (0-4) % Baso % (Auto) (0-2) % Lymph # (Auto) (1.2-4.9) X10*3/uL [place] # (Auto) (0.1-1.2) X10*3/uL Eos # (Auto) (0.0-0.4) X10*3/uL Baso # (Auto) (0.0-0.2) X10*3/uL Abs Immat Gran (auto) (0.00-0.03) X10*3/uL Absolute Neuts (auto) (2.0-8.3) x10*3/uL Absolute Nucleated RBC (0.0-0.012) X10*3/uL Nucleated RBC % (auto) (0.0-0.2) /100WBC PT (10.9-12.4) SEC INR (0.9-1.1) O2 Saturation 97.0 % ABG pH at Pt Temp 7.29 L (7.35-7.45) ABG pCO2 at Pt Temp 85 H* (32-45) mmHg ABG pO2 at Pt Temp 86 (83-108) mmHg ABG HCO3 41 H (22-26) mmol/L ABG Base Excess (Actual) 11.9 mmol/L VBG pH (7.32-7.43) VBG pCO2 mmHg VBG pO2 mmHg VBG HCO3 (22-26) mmol/L VBG O2 Saturation % VBG Base Excess mmol/L Sodium (135-145) mmol/L Potassium (3.3-5.1) mmol/L Chloride (96-108) mmol/L Carbon Dioxide (22-29) mmol/L Anion Gap (12-20) BUN (9-16) mg/dL Creatinine (0.5-1.4) mg/dL Estim Creat Clear Calc Estimated GFR Random Glucose (60-115) mg/dL Lactic Acid (0.5-2.0) mmol/L Calcium (8.4-10.2) mg/dL Total Bilirubin (0.0-1.0) mg/dL Direct Bilirubin (0.0-0.5) mg/dL AST (5-31) U/L ALT (0-31) U/L Alkaline Phosphatase (39-117) U/L Troponin I High Sens (<3.5-17.0) ng/L B-Natriuretic Peptide (<100) pg/mL Total Protein (6.5-8.0) g/dL Albumin (3.5-5.0) g/dL Lipase (8-78) U/L Urine Color Yellow Urine Appearance Cloudy Urine pH 7.0 (5.0-9.0) Ur Specific [place] 1.020 (1.005-1.025) Urine Protein Trace (Neg-Trace) mg/dL Urine Glucose (UA) Negative (Negative) mg/dL Urine Ketones Negative (Negative) mg/dL Urine Blood Negative (Negative) Urine Nitrite Negative (Negative) Ur Leukocyte Esterase Trace H (Negative) Urine RBC 0-2 (0-2) /HPF Urine WBC 0-5 (0-5) /HPF Ur Squamous Epith Cells 0-2 (0-2) /HPF Urine Bacteria None Seen (None Seen) Hyaline Casts 0-2 (0-2) /LPF Influenza Type A (PCR) (Negative) Influenza Type B (PCR) (Negative) RSV RNA Qual (PCR) (Negative) SARS-CoV-2 RNA (RT-PCR) (Negative) Independent Interpretation I performed an independent interpretation of an: Plain X-Ray (Chest:New patchy density in the retrocardiac region. This could represent a small area of pneumonia.) Radiology Impression Discussion of test interpretation with radiology: I have reviewed the radiologist's reading. Discharge Plan Discharge Clinical Impression: Acute exacerbation of chronic obstructive pulmonary disease (COPD), Pneumonia, Sepsis, Acute and chronic respiratory failure with hypercapnia Patient Disposition: Admitted As Inpatient Print Language: Macedonian
[2024-07-24 16:30] LABS: MANUAL DIFF FLAG NO
[2024-07-24 16:35] LABS: VBG Base Excess 14.2 mmol/L; VBG HCO3 45 mmol/L (22-26); VBG pCO2 91 mmHg; VBG pO2 45 mmHg
[2024-07-24] MEDS: methylPREDNISolone Sod Succ 125 MG/2 ML VIAL IVPUSH (16:35)
[2024-07-24] MEDS: Magnesium Sulfate/D5W 1 GM/100 ML PIGGYBACK IV (16:35)
[2024-07-24] MEDS: cefTRIAXone sodium 1 GM VIAL IVPUSH (16:35)
[2024-07-24] MEDS: 0.9 % Sodium Chloride 1,000 ML 999 ML IV (16:36)
[2024-07-24 16:43] LABS: Basophils Percent Auto 0.4 % (0-2); Eosinophils Percent Auto 0.4 % (0-4); Hematocrit 41.7 % (37.0-47.0); Hemoglobin 12.8 g/dl (12.0-16.0); Imm Gran Abs Auto 0.04 X10*3/uL (0.00-0.03); Imm Gran Pct Auto 0.4 % (0.0-0.4); Lymphocytes Absolute Auto 0.6 X10*3/uL (1.2-4.9); Lymphocytes Percent Auto 6.2 % (20-40); Mean Corpuscular HGB Conc 30.7 g/dl (31.0-35.0); Mean Corpuscular Hemoglobin 30.5 pg (27.0-33.0); Mean Corpuscular Volume 99.5 fL (80.0-98.0); Mean Platelet Volume 10.1 fL (9.4-12.3); Monocytes Absolute Auto 0.8 X10*3/uL (0.1-1.2); Monocytes Percent Auto 8.5 % (2-11); Neutrophils Absolute Auto 7.6 x10*3/uL (2.0-8.3); Neutrophils Percent Auto 84.1 % (45-73); Platelet Count 137 X10*3/uL (160-400); Red Blood Count 4.19 X10*6/uL (4.20-5.50); White Blood Count 9.1 X10*3/uL (4.8-10.8)
[2024-07-24 16:52] LABS: INTERNATIONAL NORM RATIO 0.9 (0.9-1.1); Prothrombin Time 10.7 SEC (10.9-12.4)
[2024-07-24 16:55] LABS: Lactic Acid 0.7 mmol/L (0.5-2.0)
[2024-07-24 16:58] LABS: B Type Natriuretic Peptide 49 pg/mL (<100)
[2024-07-24 17:02] LABS: Troponin-I High Sensitivity 5.2 ng/L (<3.5-17.0)
[2024-07-24 17:09] LABS: Alanine Aminotransferase 28 U/L (0-31); Albumin Level 4.3 g/dL (3.5-5.0); Alkaline Phosphatase 88 U/L (39-117); Anion Gap 10 (12-20); Aspartate Amino Transferase 52 U/L (5-31); Bilirubin Direct 0.2 mg/dL (0.0-0.5); Bilirubin Total 0.6 mg/dL (0.0-1.0); Blood Urea Nitrogen 17 mg/dL (9-16); Calcium 10.5 mg/dL (8.4-10.2); Carbon Dioxide 40 mmol/L (22-29); Chloride 96 mmol/L (96-108); Creatinine Clr Calc Pharmacy 45.1; Estimated Glomerular Filt Rate > 60; Glucose Random 110 mg/dL (60-115); Lipase 9 U/L (8-78); Potassium 5.2 mmol/L (3.3-5.1); Sodium 141 mmol/L (135-145); Total Protein 7.8 g/dL (6.5-8.0)
[2024-07-24 17:11] LABS: Venous Blood Gas Refer to POC result
[2024-07-24 17:23] LABS: Influenza A PCR NEGATIVE (Negative); Influenza B PCR NEGATIVE (Negative); Resp Syncy Virus RNA Qual PCR NEGATIVE (Negative); SARS COV2 PCR INHOUSE NEGATIVE (Negative)
[2024-07-24] MEDS: Doxycycline Hyclate 100 MG in 0.9 % Sodium Chloride 250 ML 166.67 MG IV (17:30)
[2024-07-24] MEDS: Albuterol Sulfate 2.5 MG, Albuterol/Iprat 2.5/0.5MG 3 ML 3 ML INHALE (17:33)
--- NOTE | 2024-07-24 17:40 | PC.NURSE ---
Late entry: Pt presented to ED via EMS from home, story from EMS that pt has COPD and dementia, ran out of O2 (2L O2 at baseline), reports SOB and cough. Pt is very confused, unable to carry out conversation, breathing labored, skin hot and clammy. Noted to have +cough. Rectal temp elevated, provider aware and sepsis alert called. Orders followed. Pt becoming increasingly agitated, ripping off wires and IV, stood up and ripped out her IV. Directed back into bed, multiple times trying to redirect. Very hard to get vitals and keep pt on monitor. Pt moved into room at this time. Unable to give PO Tylenol due to lethargy and inability to follow commands well, order changed to rectal per provider.
[2024-07-24] MEDS: Acetaminophen Supp 650 MG SUPP.RECT PR (18:01)
[2024-07-24 18:20] LABS: Appearance Urine Cloudy; Color Urine Yellow; Glucose Urine UA Negative (Negative); Leukocyte Esterase Urine Trace (Negative); Nitrite Urine Negative (Negative); UMIC TRIGGER UACC YES; Urine Blood Negative (Negative); Urine Ketones Negative (Negative); Urine Protein Trace mg/dL (Neg-Trace)
[2024-07-24 18:33] LABS: Bacteria Urine None Seen (None Seen); Hyaline Casts Urine 0-2 /LPF (0-2); RBC Urine 0-2 /HPF (0-2); Squamous Epithelial Cell Urine 0-2 /HPF (0-2); WBC Urine 0-5 /HPF (0-5)
--- NOTE | 2024-07-24 18:34 | PC.NURSE ---
Assumed care of patient of 5:45pm . Medicated per oct. Patient restless trying to get out of bed. sating 92% on 4 liters 02. Patient confused and only able to be re-directed for short periods. Denies pain or discomfort
[2024-07-24 20:19] LABS: ABG Base Excess 11.9 mmol/L; ABG HCO3 41 mmol/L (22-26); ABG pCO2 85 mmHg (32-45); ABG pH 7.29 (7.35-7.45); ABG pO2 86 mmHg (83-108)
--- NOTE | 2024-07-24 20:32 | PC.NURSE ---
pt restless and will be going on bipap and will be pretreated with medication.
[2024-07-24] MEDS: LORazepam 2 MG/ML VIAL 1 MG IVPUSH (20:36)
--- NOTE | 2024-07-24 20:38 | PC.NURSE ---
pt medicated for bipap 30% 05/18
--- NOTE | 2024-07-24 21:19 | PC.NURSE ---
resp called for bipap alarming.
[2024-07-24] MEDS: OLANZapine 5 MG TABLET PO (21:24)
[2024-07-24] MEDS: clonazePAM 0.5 MG TABLET 0.25 MG PO (21:24)
--- NOTE | 2024-07-24 21:26 | PC.NURSE ---
pt pulling at the line to the cpap and loosens up the straps, high leak detected, resp at bedside. pt medicated with her hs medications.
--- NOTE | 2024-07-24 21:50 | PHA.MEDREC ---
Addendum entered by Vince Oliveira RPh 07/24/24 22:08: [facility] rec reviewed Original Note: Pharmacy Consult ? Medication Reconciliation Pharmacy has completed the medication reconciliation. Called patients sister Shanel and patients brother answered stating Shanel was already in bed and was not sure if she knew what the patient took for medications and he was not sure the last time the patient took her medications. I was able to utilize a discharge packet from 06/21 to confirm patients medications.
[2024-07-24 23:12] LABS: Venous Blood Gas Refer to POC result
[2024-07-24 23:12] LABS: VBG Base Excess 12.8 mmol/L; VBG HCO3 42 mmol/L (22-26); VBG pCO2 84 mmHg; VBG pO2 49 mmHg
[2024-07-25] VITALS (15 sets, daily range): BP systolic 106–158; BP diastolic 51–73; PULSE 46–71; RESP 11–23; TEMP 36.5–37.1; O2SAT 89–98
[2024-07-25 03:11] LABS: Venous Blood Gas Refer to POC result
[2024-07-25 03:17] LABS: VBG Base Excess 15.3 mmol/L; VBG HCO3 42 mmol/L (22-26); VBG pCO2 62 mmHg; VBG pH 7.44 (7.32-7.43); VBG pO2 71 mmHg
[2024-07-25 03:31] LABS: ABG Refer to POC result
--- NOTE | 2024-07-25 04:26 | PC.NURSE ---
pt off bipap at 0430 and placed on 2L for sat 95%. by respiratory. provider made aware.
--- NOTE | 2024-07-25 05:33 | P.HPHOSP_ITS ---
History of Present Illness Date of Service: 07/25/24 Attending physician on admission: Sierra Cuellar Chief Complaint: Shortness on breath Gisela Amaya is a 68 years old woman with past medical history significant for COPD on home oxygen 2L/min, depression, anxiety and essential hypertension presents to the emergency department complaining of worsening shortness of breath, wheezing and productive cough. Patient is a poor historian and prefers to sleep. In the ED, she was found to have fever, tachypnea and tachycardia. Blood pressure has been stable. Blood workup showed no leukocytosis. Hemoglobin and platelets are unremarkable. There were no significant electrolyte imbalances except for slight elevation of potassium, 5.2. CO2 is 40 which is around his baseline. BUN is 17 and creatinine 0.75. LFTs are normal. Urinalysis showed no evidence of UTI. COVID-19, influenza RSV is negative. ABG showed respiratory acidosis. CXR showed new patchy density in the retrocardiac region that may represent small area of pneumonia. Due to respiratory acidosis patient had a trial of BiPAP in the emergency department. She has been off BiPAP over the last hour. Repeat venous blood gas for significant correction of CO2 retention. Review of Systems 2 Review of Systems: Limited -poor historian. [facility] Medical History Hypertension, essential Depression, major, recurrent O2 dependent COPD, severe Family History Father No problems noted. Mother Stomach cancer Brother No problems noted. Brother No problems noted. Brother No problems noted. Brother No problems noted. Brother No problems noted. Brother No problems noted. Sister No problems noted. Sister No problems noted. Sister No problems noted. Sister No problems noted. Surgical History History of surgery Amputated toe Hx of cholecystectomy History of appendectomy Social History Household Members: Family Housing: Apartment Do you presently have visiting nurse or other home services: No Alcohol intake: never Patient Tobacco Use Status: Refuse Tobacco use screen Tobacco use type: Cigarette Cigarettes Per Day: 3 Smoked in Last 30 Days: No e-Cigarette/Vaping Use: Never Used Use of substances other than those prescribed or required for medical reasons: No Advance Directives: No Advance Directives Information Provided: Yes service: No Current occupational status: retired and disabled Cognitive needs: No Hearing needs: No Vision needs: No Meds Allergies Allergy/AdvReac Type Severity Reaction Status Date / Time codeine Allergy Unknown hives Verified 07/24/24 15:52 NSAIDS (Non-Steroidal AdvReac Mild On blood Verified 06/15/24 17:55 Anti-Inflamma thinners Active Medications: Current Medications Acetaminophen (Acetaminophen 325 Mg Tablet) 975 mg PO Q6H PRN PRN Reason: Pain, Mild (Pain Scale 1-3), fever or headache Albuterol Sulfate (Albuterol Sulfate (0.083%) 2.5 Mg/3 Ml Vial.Neb) 2.5 mg INHALE Q2H PRN PRN Reason: Shortness of Breath/Wheezing Albuterol/Ipratropium (Albuterol/Iprat 2.5/0.5mg 3 Ml Ampul.Neb) 3 ml INHALE RQ4H WHILE AWAKE [facility] Calcium Carbonate (Calcium Carbonate 750 Mg Tab.Chew) 750 mg PO Q4H PRN PRN Reason: Heartburn Magnesium Hydroxide (Milk Of Magnesia 30 Ml Oral.Susp) 30 ml PO DAILY PRN PRN Reason: Constipation Melatonin (Melatonin 3 Mg Tablet) 6 mg PO BEDTIME PRN PRN Reason: Insomnia Methylprednisolone Sodium Succinate (Methylprednisolone Sod Succ 40 Mg/Ml Vial) 40 mg IVPUSH BID [facility] Sodium Chloride (0.9 % Sodium Chloride Flush 3 Ml Syringe) 3 ml IVFLUSH QSHIFT [facility] Home Medications ?Medication ?Instructions ?Recorded ?Confirmed ?Last Taken ?Type albuterol sulfate 2.5 mg/3 mL 2.5 mg inhalation QID PRN Wheezing 08/25/20 07/24/24 Unknown History (0.083 %) solution for nebulization buprenorphine 8 mg-naloxone 2 mg 1.5 film sublingual DAILY 10/29/22 07/24/24 06/15/24 History sublingual film clonazepam 0.5 mg tablet 0.25 mg PO TID PRN Anxiety 10/29/22 07/24/24 06/15/24 History fluticasone fur. 200 mcg-umeclid 1 ea inhalation DAILY 05/07/24/24 06/14/24 History 62.5 mcg-vilant 25 mcg inhalat.powder (Trelegy Ellipta) albuterol sulfate 90 mcg/actuation 2 puff inhalation Q6H PRN 06/16/24 07/24/24 Unknown History aerosol inhaler (Ventolin HFA) Shortness Of Breath Or Wheezing levothyroxine 125 mcg tablet 125 mcg PO DAILY@0600 06/16/24 07/24/24 06/14/24 History mirtazapine 15 mg tablet 15 mg PO BEDTIME 06/16/24 07/24/24 06/14/24 History olanzapine 5 mg tablet 5 mg PO BEDTIME 06/16/24 07/24/24 06/14/24 History roflumilast 500 mcg tablet 500 mcg PO DAILY 06/16/24 07/24/24 06/14/24 History Physical Exam 2 Vital Signs and Narrative: Vital Signs: Last Vital Signs Temp 98.0 F 07/25/24 03:52 Pulse 49 L 07/25/24 03:52 Resp 20 07/25/24 03:52 BP 137/73 07/25/24 03:52 Pulse Ox 95 07/25/24 03:52 O2 Del Method BiPAP 07/25/24 03:52 O2 Flow Rate 25 07/25/24 03:52 Oxygen Flow Rate 4 07/24/24 15:50 BMI result Body Mass Index 20.9 Constitutional - sleeping. No apparent distress. HEENT - PER, EOMI Heart - S1S2, RRR, No edema Respiratory - Normal lung expansion, Normal respiratory effort, No respiratory distress. Tachypnea. Mild end expiratory wheezes. Abdomen - NT / ND; +BS; No rebound or guarding Extremities - no calf tenderness bilaterally, no swelling Musculoskeletal - Normal inspection, normal ROM Skin - Warm/Dry Neurological - sleeping. Psychological - Appropriate affect Results Labs 07/24/24 16:21 07/24/24 16:21 Labs: Laboratory Results - last 24 hr 07/24/24 07/24/24 07/24/24 16:20 16:21 16:30 MCV 99.5 H MCH 30.5 MCHC 30.7 L RDW 14.0 Plt Count 137 L D MPV 10.1 Immature Gran % (Auto) 0.4 Neut % (Auto) 84.1 H Lymph % (Auto) 6.2 L [place] % (Auto) 8.5 Eos % (Auto) 0.4 Baso % (Auto) 0.4 Lymph # (Auto) 0.6 L [place] # (Auto) 0.8 Eos # (Auto) 0.0 Baso # (Auto) 0.0 Abs Immat Gran (auto) 0.04 H Absolute Neuts (auto) 7.6 Absolute Nucleated RBC 0.000 Nucleated RBC % (auto) 0.0 PT 10.7 L INR 0.9 O2 Saturation ABG pH at Pt Temp ABG pCO2 at Pt Temp ABG pO2 at Pt Temp ABG HCO3 ABG Base Excess (Actual) VBG pH 7.30 L VBG pCO2 91 VBG pO2 45 VBG HCO3 45 H VBG O2 Saturation 72.0 VBG Base Excess 14.2 Anion Gap 10 L Estim Creat Clear Calc 45.1 Estimated GFR > 60 Random Glucose 110 Lactic Acid 0.7 Calcium 10.5 H D Total Bilirubin 0.6 Direct Bilirubin 0.2 AST 52 H ALT 28 Alkaline Phosphatase 88 Troponin I High Sens 5.2 B-Natriuretic Peptide 49 Total Protein 7.8 Albumin 4.3 Lipase 9 Urine Color Urine Appearance Urine pH Ur Specific [place] Urine Protein Urine Glucose (UA) Urine Ketones Urine Blood Urine Nitrite Ur Leukocyte Esterase Urine RBC Urine WBC Ur Squamous Epith Cells Urine Bacteria Hyaline Casts Influenza Type A (PCR) NEGATIVE Influenza Type B (PCR) NEGATIVE RSV RNA Qual (PCR) NEGATIVE SARS-CoV-2 RNA (RT-PCR) NEGATIVE 07/24/24 07/24/24 07/24/24 18:11 20:09 23:07 MCV MCH MCHC RDW Plt Count MPV Immature Gran % (Auto) Neut % (Auto) Lymph % (Auto) [place] % (Auto) Eos % (Auto) Baso % (Auto) Lymph # (Auto) [place] # (Auto) Eos # (Auto) Baso # (Auto) Abs Immat Gran (auto) Absolute Neuts (auto) Absolute Nucleated RBC Nucleated RBC % (auto) PT INR O2 Saturation 97.0 ABG pH at Pt Temp 7.29 L ABG pCO2 at Pt Temp 85 H* ABG pO2 at Pt Temp 86 ABG HCO3 41 H ABG Base Excess (Actual) 11.9 VBG pH 7.30 L VBG pCO2 84 VBG pO2 49 VBG HCO3 42 H VBG O2 Saturation 77.0 VBG Base Excess 12.8 Anion Gap Estim Creat Clear Calc Estimated GFR Random Glucose Lactic Acid Calcium Total Bilirubin Direct Bilirubin AST ALT Alkaline Phosphatase Troponin I High Sens B-Natriuretic Peptide Total Protein Albumin Lipase Urine Color Yellow Urine Appearance Cloudy Urine pH 7.0 Ur Specific [place] 1.020 Urine Protein Trace Urine Glucose (UA) Negative Urine Ketones Negative Urine Blood Negative Urine Nitrite Negative Ur Leukocyte Esterase Trace H Urine RBC 0-2 Urine WBC 0-5 Ur Squamous Epith Cells 0-2 Urine Bacteria None Seen Hyaline Casts 0-2 Influenza Type A (PCR) Influenza Type B (PCR) RSV RNA Qual (PCR) SARS-CoV-2 RNA (RT-PCR) 07/25/24 03:10 MCV MCH MCHC RDW Plt Count MPV Immature Gran % (Auto) Neut % (Auto) Lymph % (Auto) [place] % (Auto) Eos % (Auto) Baso % (Auto) Lymph # (Auto) [place] # (Auto) Eos # (Auto) Baso # (Auto) Abs Immat Gran (auto) Absolute Neuts (auto) Absolute Nucleated RBC Nucleated RBC % (auto) PT INR O2 Saturation ABG pH at Pt Temp ABG pCO2 at Pt Temp ABG pO2 at Pt Temp ABG HCO3 ABG Base Excess (Actual) VBG pH 7.44 H VBG pCO2 62 VBG pO2 71 VBG HCO3 42 H VBG O2 Saturation 96.0 VBG Base Excess 15.3 Anion Gap Estim Creat Clear Calc Estimated GFR Random Glucose Lactic Acid Calcium Total Bilirubin Direct Bilirubin AST ALT Alkaline Phosphatase Troponin I High Sens B-Natriuretic Peptide Total Protein Albumin Lipase Urine Color Urine Appearance Urine pH Ur Specific [place] Urine Protein Urine Glucose (UA) Urine Ketones Urine Blood Urine Nitrite Ur Leukocyte Esterase Urine RBC Urine WBC Ur Squamous Epith Cells Urine Bacteria Hyaline Casts Influenza Type A (PCR) Influenza Type B (PCR) RSV RNA Qual (PCR) SARS-CoV-2 RNA (RT-PCR) Imaging Radiologist's Impressions: Impressions Chest X-Ray 07/24/24 16:14 IMPRESSION: New patchy density in the retrocardiac region. This could represent a small area of pneumonia. Electronically signed by: Hal Dickey MD 07/24/2024 07:25 PM [facility] Assessment and Plan (1) Acute and chronic respiratory failure with hypercapnia: Status: Acute (2) Pneumonia: Qualifiers: Pneumonia type: due to unspecified organism Laterality: unspecified laterality Lung location: unspecified part of lung Qualified Code(s): J18.9 - Pneumonia, unspecified organism Status: Acute Plan Gisela Amaya is a 68 y/o woman admitted with: * Hypercapnic respiratory failure secondary to acute exacerbation of COPD and pneumonia. Admit to hospitalist service. Pulse oximetry. Telemetry. Supplemental O2 to keep O2 sats > 90%. Continue bronchodilator therapy, IV steroids and empiric IV antibiotic therapy with ceftriaxone and doxycycline. * Anxiety and depression. Continue Zoloft and Zyprexa. * Hypothyroidism. Continue levothyroxine. * Insomnia. Continue mirtazapine. * Essential hypertension. Continue lisinopril. * PVD. Continue Plavix. * Tobacco dependence. Patient stated that she quit 1 week ago. * On Suboxone. GI prophylaxis: Ppi DVT prophylaxis: SCDs. Code status: Full Patient will need hospitalization for at least 2 midnights for hypercapnic respiratory failure and pneumonia treatment with bronchodilator therapy, empiric IV antibiotic therapy, supplemental oxygen and IV steroids. Quality Stroke Does the patient have a stroke diagnosis?: No VTE Prior VTE?: No VTE Risk Level:: Medical - moderate - high VTE Device Contraindication: N/A - Device Ordered VTE Drug Contraindication: N/A - Med Ordered
[2024-07-25] MEDS: Doxycycline Hyclate 100 MG in 0.9 % Sodium Chloride 250 ML 166.67 MG IV ×2 (06:02→19:58)
[2024-07-25] MEDS: methylPREDNISolone Sod Succ 40 MG/ML VIAL IVPUSH ×2 (08:10→19:58)
[2024-07-25] MEDS: 0.9 % Sodium Chloride Flush 3 ML SYRINGE IVFLUSH ×2 (08:11→16:58)
[2024-07-25] MEDS: lisinopriL 10 MG TABLET PO (08:12)
[2024-07-25] MEDS: Clopidogrel Bisulfate 75 MG TABLET PO (08:12)
[2024-07-25] MEDS: Sertraline HCL 100 MG TABLET PO (08:12)
[2024-07-25] MEDS: Levothyroxine Sodium 125 MCG TABLET PO (08:13)
[2024-07-25] MEDS: Roflumilast 500 MCG TABLET PO (08:13)
[2024-07-25] MEDS: Buprenorphine/Naloxone 8/2 mg FILM 1.5 FILM SUBLINGUAL (08:13)
--- NOTE | 2024-07-25 08:30 | P.EN_ITS ---
Event Note Date of Service: 07/25/24 Event Note: 68-year-old with past medical history of COPD on 2 L home oxygen, anxiety depression, hypertension presented with shortness of breath and cough,, chest x- ray showed new retrocardiac density, patient noted to have respiratory acidosis treated with BiPAP, repeat VBG showed pH 7.4 pCO2 improved from 84-62 Labs showed potassium 5.2, bicarb 40 feeling better feels anxious Assessment and plan Gisela Amaya is a 68 y/o woman admitted with: Acute on chronic Hypercapnic respiratory failure secondary to acute exacerbation of COPD and pneumonia. Chest x-ray showed New patchy density in the retrocardiac region, could represent a small area of pneumonia, afebrile, normal WBC. Continue Supplemental O2 to keep O2 sats > 90%, on 2 L home oxygen. Continue bronchodilator therapy, IV steroids and empiric IV antibiotic therapy with ceftriaxone and doxycycline. Follow blood culture Anxiety and depression. Continue Zoloft and Zyprexa. Hypothyroidism. Continue levothyroxine. Insomnia. Continue mirtazapine. Essential hypertension. Continue lisinopril. PVD. Continue Plavix. Tobacco dependence. quit 1 week ago, counseling done. Pain medication dependency on Suboxone. GI prophylaxis: Ppi DVT prophylaxis: SCDs. Code status: Full Patient will need hospitalization for at least 2 midnights for hypercapnic respiratory failure and pneumonia treatment with bronchodilator therapy, empiric IV antibiotic therapy, supplemental oxygen and IV steroids. Time Spent With Patient Time: Total time managing care of this patient today ____ minutes.
[2024-07-25] MEDS: Albuterol/Iprat 2.5/0.5MG 3 ML AMPUL.NEB INHALE ×4 (08:47→18:53)
[2024-07-25 10:13] LABS: MANUAL DIFF FLAG NO
[2024-07-25] MEDS: Fluticasone/Umeclidinium/Vilanterol 200/62.5/25 BLST.W.DEV 1 PUFF INHALE (10:18)
[2024-07-25 10:32] LABS: Basophils Percent Auto 0.3 % (0-2); Hematocrit 40.6 % (37.0-47.0); Hemoglobin 12.8 g/dl (12.0-16.0); Imm Gran Abs Auto 0.02 X10*3/uL (0.00-0.03); Imm Gran Pct Auto 0.3 % (0.0-0.4); Lymphocytes Absolute Auto 0.6 X10*3/uL (1.2-4.9); Lymphocytes Percent Auto 8.9 % (20-40); Mean Corpuscular HGB Conc 31.5 g/dl (31.0-35.0); Mean Corpuscular Hemoglobin 30.6 pg (27.0-33.0); Mean Corpuscular Volume 97.1 fL (80.0-98.0); Mean Platelet Volume 10.1 fL (9.4-12.3); Monocytes Absolute Auto 0.3 X10*3/uL (0.1-1.2); Monocytes Percent Auto 4.5 % (2-11); Neutrophils Absolute Auto 5.7 x10*3/uL (2.0-8.3); Platelet Count 125 X10*3/uL (160-400); Red Blood Count 4.18 X10*6/uL (4.20-5.50); Red Cell Distribution Width 14.3 % (11.0-16.0); White Blood Count 6.7 X10*3/uL (4.8-10.8)
[2024-07-25 10:42] LABS: Anion Gap 15 (12-20); Blood Urea Nitrogen 20 mg/dL (9-16); Calcium 9.6 mg/dL (8.4-10.2); Carbon Dioxide 35 mmol/L (22-29); Chloride 97 mmol/L (96-108); Creatinine Clr Calc Pharmacy 46.9; Estimated Glomerular Filt Rate > 60; Glucose Random 105 mg/dL (60-115); Magnesium 1.9 mg/dL (1.6-2.6); Potassium 5.4 mmol/L (3.3-5.1); Sodium 142 mmol/L (135-145)
[2024-07-25] MEDS: clonazePAM 0.5 MG TABLET 0.25 MG PO ×2 (12:52→19:58)
[2024-07-25] MEDS: cefTRIAXone sodium 1 GM VIAL IVPUSH (16:58)
[2024-07-25] MEDS: Mirtazapine 15 MG TABLET PO (19:58)
[2024-07-25] MEDS: OLANZapine 5 MG TABLET PO (19:58)
[2024-07-26] VITALS (11 sets, daily range): BP systolic 128–151; BP diastolic 65–83; PULSE 56–93; RESP 12–20; TEMP 36.3–36.6; O2SAT 92–98
[2024-07-26] MEDS: Acetaminophen 325 MG TABLET 975 MG PO (00:43)
[2024-07-26] MEDS: Melatonin 3 MG TABLET 6 MG PO ×2 (00:43→20:49)
[2024-07-26] MEDS: 0.9 % Sodium Chloride Flush 3 ML SYRINGE IVFLUSH ×4 (00:44→20:49)
--- NOTE | 2024-07-26 03:06 | PC.NURSE ---
Patient is alert and oriented x4, VSS. Patient continues to maintain stable O2 Sat 90-96% on 2 LPM NC. Patient medicated with Tylenol for 3/10 pain in b/l lower legs with good effect-patient denies any pain at present. Patient has been using a bedside commode with 1 assist. Patient offers no complaints at this time. Currently patient resting in a hospital bed, not in acute distress, call bed in reach, plan of care ongoing.
[2024-07-26] MEDS: clonazePAM 0.5 MG TABLET 0.25 MG PO ×3 (04:59→20:49)
[2024-07-26] MEDS: Doxycycline Hyclate 100 MG in 0.9 % Sodium Chloride 250 ML 166.67 MG IV (05:02)
[2024-07-26 07:09] LABS: Anion Gap 14 (12-20); Blood Urea Nitrogen 33 mg/dL (9-16); Calcium 9.1 mg/dL (8.4-10.2); Carbon Dioxide 30 mmol/L (22-29); Chloride 100 mmol/L (96-108); Creatinine Clr Calc Pharmacy 42.2; Estimated Glomerular Filt Rate > 60; Glucose Random 95 mg/dL (60-115); Potassium 5.8 mmol/L (3.3-5.1); Sodium 138 mmol/L (135-145)
[2024-07-26 07:24] LABS: Thyroid Stimulating Hormone 2.86 uIU/mL (0.32-4.0)
[2024-07-26] MEDS: Albuterol/Iprat 2.5/0.5MG 3 ML AMPUL.NEB INHALE ×3 (07:32→20:09)
--- NOTE | 2024-07-26 07:55 | MHC.EDTECH ---
pt assisted x1 to bedside commode, tolerated well, breakfast provided, respiratory giving breathing treatment. pt in bed, provided new linens, comfortable, call gallagher in reach and all needs met at this time
[2024-07-26] MEDS: lisinopriL 10 MG TABLET PO (08:13)
[2024-07-26] MEDS: Buprenorphine/Naloxone 8/2 mg FILM 1.5 FILM SUBLINGUAL (08:14)
[2024-07-26] MEDS: Clopidogrel Bisulfate 75 MG TABLET PO (08:14)
[2024-07-26] MEDS: methylPREDNISolone Sod Succ 40 MG/ML VIAL IVPUSH ×2 (08:14→20:49)
[2024-07-26] MEDS: Sertraline HCL 100 MG TABLET PO (08:14)
[2024-07-26] MEDS: Sodium Zirconium Cyclosilicate 10 GM POWD.PACK PO (08:25)
[2024-07-26] MEDS: Roflumilast 500 MCG TABLET PO (08:53)
[2024-07-26] MEDS: Levothyroxine Sodium 125 MCG TABLET PO (08:53)
[2024-07-26] MEDS: Fluticasone/Umeclidinium/Vilanterol 200/62.5/25 BLST.W.DEV 1 PUFF INHALE (09:03)
--- NOTE | 2024-07-26 09:15 | MHC.CM.PN ---
Addendum entered by Anisa Hdez 07/26/24 09:26: CORRECTION! Patient refused services from [facility]. Addendum entered by Anisa Hdez 07/26/24 09:24: Home O2 is through [facility]. Original Note: Patient is documented to be a poor Historian and sleepy; CM attempted to reach Primary Contact/Sister/Shanel at [phone], but reached her instead (IMM was addressed and original will be mailed certified mail to Shanel and a copy will be placed on the chart). Patient lives in an apartment with her Daughter, Son-in-Law and Niece, uses a walker, and is active with [facility]; home/resume said services is the goal and cm has initiated and will follow for dc planning. Patient receives her Suboxone from [facility] in [place] and PCP is Dr. Eddie Watkins. Family will transport to home.
[2024-07-26] MEDS: Flu Vacc TS2024-25(6mos up)/PF 0.5 ML SYRINGE IM (12:15)
--- NOTE | 2024-07-26 13:41 | HO.PM.IMPN ---
Subjective Subjective Date of Service: 07/26/24 Interval History: Being followed for acute on chronic hypercapnic respiratory failure due to acute exacerbation of COPD and pneumonia. Complaining of generalized weakness, persistent shortness of breath nausea decreased appetite, back pain, stable oxygenation. No acute events overnight. Review of Systems All other system reviewed and are negative Physical Exam Vital Signs: Vital Signs: Last Vital Signs Temp 97.5 F 07/26/24 12:00 Pulse 58 07/26/24 12:00 Resp 18 07/26/24 12:00 BP 141/65 H 07/26/24 12:00 Pulse Ox 97 07/26/24 12:00 O2 Del Method Nasal Cannula 07/26/24 12:00 O2 Flow Rate 3 07/26/24 12:00 Oxygen Flow Rate 4 07/24/24 15:50 BMI result Body Mass Index 20.9 Const: Other: Gen: in no acute distress HEENT: sclera anicteric, moist mucus membranes Neck: no jvd Lungs: Coarse breath sounds, no respiratory distress Heart: regular rate and rhythm, no murmurs Abd: soft, non-tender, non-distended Ext: no edema Skin: warm/well-perfused Neuro: alert and oriented x3, no focal findings Psych: appropriate affect Objective Data Active Medications Acetaminophen (Acetaminophen 325 Mg Tablet) 975 mg PO Q6H PRN PRN Reason: Pain, Mild (Pain Scale 1-3), fever or headache Last Admin: 07/26/24 00:43 Dose: 975 mg Documented By: REBECCA Albuterol Sulfate (Albuterol Sulfate (0.083%) 2.5 Mg/3 Ml Vial.Neb) 2.5 mg INHALE Q2H PRN PRN Reason: Shortness of Breath/Wheezing Albuterol/Ipratropium (Albuterol/Iprat 2.5/0.5mg 3 Ml Ampul.Neb) 3 ml INHALE RQ4H WHILE AWAKE [facility] Last Admin: 07/26/24 11:16 Dose: 3 ml Documented By: YOGESH Buprenorphine/Naloxone (Buprenorphine/Naloxone 8/2 Mg Film) 1.5 film SUBLINGUAL DAILY [facility] Last Admin: 07/26/24 08:14 Dose: 1.5 film Documented By: RHIANNONOPEAndrea Calcium Carbonate (Calcium Carbonate 750 Mg Tab.Chew) 750 mg PO Q4H PRN PRN Reason: Heartburn Ceftriaxone Sodium (Ceftriaxone Sodium 1 Gm Vial) 1 gm IVPUSH Q24H [facility] Last Admin: 07/25/24 16:58 Dose: 1 gm Documented By: SILVIO Clonazepam (Clonazepam 0.5 Mg Tablet) 0.25 mg PO TID PRN PRN Reason: Anxiety Last Admin: 07/26/24 04:59 Dose: 0.25 mg Documented By: REBECCA Clopidogrel Bisulfate (Clopidogrel Bisulfate 75 Mg Tablet) 75 mg PO DAILY [facility] Last Admin: 07/26/24 08:14 Dose: 75 mg Documented By: PABLO Doxycycline Monohydrate (Doxycycline Monohydrate 100 Mg Capsule) 100 mg PO Q12H [facility] Fluticasone/Umeclidinium/Vilanterol (Fluticasone/Umeclidinium/Vilanterol 200/62.5/25 Blst.W.Dev) 1 puff INHALE RDAILY [facility] Last Admin: 07/26/24 09:03 Dose: 1 puff Documented By: GUSTABO Levothyroxine Sodium (Levothyroxine Sodium 125 Mcg Tablet) 125 mcg PO DAILY@0630 [facility] Last Admin: 07/26/24 08:53 Dose: 125 mcg Documented By: PABLO Lisinopril (Lisinopril 10 Mg Tablet) 10 mg PO DAILY [facility]; Protocol Last Admin: 07/26/24 08:13 Dose: 10 mg Documented By: PABLO Magnesium Hydroxide (Milk Of Magnesia 30 Ml Oral.Susp) 30 ml PO DAILY PRN PRN Reason: Constipation Meclizine HCl (Meclizine Hcl 25 Mg Tablet) 25 mg PO Q8H PRN PRN Reason: dizziness Melatonin (Melatonin 3 Mg Tablet) 6 mg PO BEDTIME PRN PRN Reason: Insomnia Last Admin: 07/26/24 00:43 Dose: 6 mg Documented By: REBECCA Methylprednisolone Sodium Succinate (Methylprednisolone Sod Succ 40 Mg/Ml Vial) 40 mg IVPUSH BID [facility] Last Admin: 07/26/24 08:14 Dose: 40 mg Documented By: PABLO Mirtazapine (Mirtazapine 15 Mg Tablet) 15 mg PO BEDTIME [facility] Last Admin: 07/25/24 19:58 Dose: 15 mg Documented By: STEWART Olanzapine (Olanzapine 5 Mg Tablet) 5 mg PO BEDTIME [facility] Last Admin: 07/25/24 19:58 Dose: 5 mg Documented By: STEWART Roflumilast (Roflumilast 500 Mcg Tablet) 500 mcg PO DAILY [facility] Last Admin: 07/26/24 08:53 Dose: 500 mcg Documented By: PABLO Sertraline HCl (Sertraline Hcl 100 Mg Tablet) 100 mg PO DAILY [facility] Last Admin: 07/26/24 08:14 Dose: 100 mg Documented By: PABLO Sodium Chloride (0.9 % Sodium Chloride Flush 3 Ml Syringe) 3 ml IVFLUSH QSHIFT [facility] Last Admin: 07/26/24 08:15 Dose: 3 ml Documented By: PABLO Labs 07/25/24 09:47 07/26/24 06:43 Labs: Laboratory Results - last 24 hr 07/26/24 06:43 Anion Gap 14 Estim Creat Clear Calc 42.2 Estimated GFR > 60 Random Glucose 95 Calcium 9.1 TSH 2.86 Microbiology Microbiology Results: Microbiology 07/24/24 16:33 Blood Culture - Preliminary Blood - Venous No growth after 24 hours. 07/24/24 16:21 Blood Culture - Preliminary Blood - Venous No growth after 24 hours. Assessment and Plan (1) Acute and chronic respiratory failure with hypercapnia: Status: Acute (2) Pneumonia: Status: Acute Plan Gisela Amaya is a 68 y/o woman admitted with: Acute on chronic Hypercapnic respiratory failure secondary to acute exacerbation of COPD and pneumonia. Chronic hypoxic respiratory failure on 2 L of home oxygen. Complaining of persistent shortness of breath and cough Chest x-ray showed New patchy density in the retrocardiac region, could represent a small area of pneumonia, afebrile, normal WBC. Continue Supplemental O2 to keep O2 sats > 90%, on 2 L home oxygen. Continue bronchodilator therapy, IV steroids and IV ceftriaxone and po doxycycline. Will transition to by mouth steroids and antibiotics at a.m. if remained stable Recommend out of bed to chair/IS blood culture negative times 24 hours Outpatient follow-up with pulmonology chronic hypercapnic respiratory failure Hyperkalemia potassium 5.8 treated with Lokelma 10 mg follow labs at a.m. Anxiety and depression. Continue Zoloft and Zyprexa. Hypothyroidism. Continue levothyroxine. Insomnia. Continue mirtazapine. Essential hypertension. Continue lisinopril. PVD. Continue Plavix. Tobacco dependence. quit 1 week ago, counseling done. Pain medication dependency on Suboxone. GI prophylaxis: Ppi DVT prophylaxis: SCDs. Code status: Full Patient will need continued inpatient hospitalization for hypercapnic respiratory failure and pneumonia treatment with bronchodilator therapy, empiric IV antibiotic therapy, supplemental oxygen and IV steroids. Quality Stroke Does the patient have a stroke diagnosis?: No VTE Prior VTE?: No VTE Risk Level:: Medical - moderate - high VTE Device Contraindication: N/A - Device Ordered VTE Drug Contraindication: N/A - Med Ordered
[2024-07-26] MEDS: cefTRIAXone sodium 1 GM VIAL IVPUSH (15:57)
[2024-07-26] MEDS: Doxycycline Monohydrate 100 MG CAPSULE PO (17:36)
[2024-07-26] MEDS: OLANZapine 5 MG TABLET PO (17:36)
[2024-07-26] MEDS: Mirtazapine 15 MG TABLET PO (20:49)
[2024-07-27] VITALS (9 sets, daily range): BP systolic 129–162; BP diastolic 66–80; PULSE 62–88; RESP 12–20; TEMP 36.2–36.9; O2SAT 90–100
[2024-07-27] MEDS: LORazepam 2 MG/ML VIAL 1 MG IVPUSH (01:25)
[2024-07-27 02:21] LABS: Appearance Urine Clear; Color Urine Yellow; Glucose Urine UA Negative (Negative); Leukocyte Esterase Urine Moderate (2+) (Negative); Nitrite Urine Negative (Negative); PH 5.5 (5.0-9.0); Specific Gravity - Urine 1.015 (1.005-1.025); UMIC TRIGGER UACC YES; Urine Blood Negative (Negative); Urine Ketones Negative (Negative); Urine Protein Negative (Neg-Trace)
[2024-07-27 02:25] LABS: Bacteria Urine None Seen (None Seen); Hyaline Casts Urine 0-2 /LPF (0-2); RBC Urine 0-2 /HPF (0-2); UACC Culture Trigger YES; WBC Urine 21-50 /HPF (0-5)
[2024-07-27] MEDS: Albuterol Sulfate (0.083%) 2.5 MG/3 ML VIAL.NEB INHALE (03:30)
[2024-07-27] MEDS: Haloperidol Lactate 5 MG/ML VIAL IM (03:39)
[2024-07-27 04:04] LABS: Anion Gap 13 (12-20); Blood Urea Nitrogen 40 mg/dL (9-16); Calcium 9.2 mg/dL (8.4-10.2); Carbon Dioxide 34 mmol/L (22-29); Chloride 102 mmol/L (96-108); Creatinine Clr Calc Pharmacy 40.2; Estimated Glomerular Filt Rate > 60; Glucose Random 124 mg/dL (60-115); Potassium 4.2 mmol/L (3.3-5.1); Sodium 145 mmol/L (135-145)
[2024-07-27] MEDS: diphenhydrAMINE HCL 50 MG/ML VIAL IVPUSH (04:34)
[2024-07-27] MEDS: Haloperidol Lactate 5 MG/ML VIAL 2.5 MG IM (04:34)
--- NOTE | 2024-07-27 05:30 | PC.NURSE ---
Patient AOx1, in need of ?frequent redirection every 10 minutes as to why it?s important to stay in bed due to her being unsteady with a wobbly gait. Pt was adamant about things and events that weren?t happening or had possibly happened prior. Reached out to MD and medicated with one time IM Haldol with little effect. Pt still required frequent redirection and was an increased fall risk. Reached out to MD and medicated per OCT one time additional dose of haldol along with IV Benadryl. Pt then became less agitated, lesser attempts were made to get out of bed without staff present and pt rested comfortably with call gallagher within reach. Sitter able to be obtained around 0530 to maintain safety.?
[2024-07-27] MEDS: Levothyroxine Sodium 125 MCG TABLET PO (05:39)
[2024-07-27] MEDS: Doxycycline Monohydrate 100 MG CAPSULE PO ×2 (05:39→17:29)
[2024-07-27 06:37] LABS: MANUAL DIFF FLAG NO
[2024-07-27 06:38] LABS: Hematocrit 35.5 % (37.0-47.0); Hemoglobin 11.1 g/dl (12.0-16.0); Imm Gran Abs Auto 0.02 X10*3/uL (0.00-0.03); Imm Gran Pct Auto 0.6 % (0.0-0.4); Lymphocytes Absolute Auto 0.3 X10*3/uL (1.2-4.9); Lymphocytes Percent Auto 8.3 % (20-40); Mean Corpuscular HGB Conc 31.3 g/dl (31.0-35.0); Mean Corpuscular Hemoglobin 30.5 pg (27.0-33.0); Mean Corpuscular Volume 97.5 fL (80.0-98.0); Mean Platelet Volume 10.1 fL (9.4-12.3); Monocytes Absolute Auto 0.3 X10*3/uL (0.1-1.2); Monocytes Percent Auto 9.1 % (2-11); Neutrophils Absolute Auto 2.9 x10*3/uL (2.0-8.3); Platelet Count 120 X10*3/uL (160-400); Red Blood Count 3.64 X10*6/uL (4.20-5.50); Red Cell Distribution Width 14.6 % (11.0-16.0); White Blood Count 3.5 X10*3/uL (4.8-10.8)
[2024-07-27 06:40] LABS: Venous Blood Gas Refer to POC result
[2024-07-27 06:41] LABS: VBG Base Excess 12.2 mmol/L; VBG HCO3 40 mmol/L (22-26); VBG pCO2 70 mmHg; VBG pH 7.36 (7.32-7.43); VBG pO2 32 mmHg
[2024-07-27 06:55] LABS: Anion Gap 11 (12-20); Blood Urea Nitrogen 39 mg/dL (9-16); Carbon Dioxide 35 mmol/L (22-29); Chloride 102 mmol/L (96-108); Creatinine Clr Calc Pharmacy 40.2; Estimated Glomerular Filt Rate > 60; Glucose Random 102 mg/dL (60-115); Magnesium 1.9 mg/dL (1.6-2.6); Potassium 4.3 mmol/L (3.3-5.1); Sodium 144 mmol/L (135-145)
[2024-07-27] MEDS: Fluticasone/Umeclidinium/Vilanterol 200/62.5/25 BLST.W.DEV 1 PUFF INHALE (07:33)
[2024-07-27] MEDS: Albuterol/Iprat 2.5/0.5MG 3 ML AMPUL.NEB INHALE ×4 (07:33→19:46)
[2024-07-27] MEDS: lisinopriL 10 MG TABLET PO (10:24)
[2024-07-27] MEDS: methylPREDNISolone Sod Succ 40 MG/ML VIAL IVPUSH (10:25)
[2024-07-27] MEDS: Clopidogrel Bisulfate 75 MG TABLET PO (10:25)
[2024-07-27] MEDS: Roflumilast 500 MCG TABLET PO (10:25)
[2024-07-27] MEDS: Sertraline HCL 100 MG TABLET PO (10:25)
[2024-07-27] MEDS: Buprenorphine/Naloxone 8/2 mg FILM 1.5 FILM SUBLINGUAL (10:25)
[2024-07-27] MEDS: clonazePAM 0.5 MG TABLET 0.25 MG PO ×2 (10:28→20:00)
[2024-07-27] MEDS: 0.9 % Sodium Chloride Flush 3 ML SYRINGE IVFLUSH ×3 (10:29→20:01)
--- NOTE | 2024-07-27 11:40 | P.PNIM_ITS ---
Subjective Subjective Date of Service: 07/27/24 Interval History: seen and examined reports weakness Review of Systems Negative except HPI/interval history. Physical Exam 2 Vital Signs: Vital Signs: Last Vital Signs Temp 97.1 F 07/27/24 07:20 Pulse 64 07/27/24 11:04 Resp 16 07/27/24 11:04 BP 162/80 H 07/27/24 07:20 Pulse Ox 99 07/27/24 07:20 O2 Del Method Nasal Cannula 07/27/24 07:20 O2 Flow Rate 2 07/27/24 07:20 Oxygen Flow Rate 4 07/24/24 15:50 BMI result Body Mass Index 20.9 Const: Other: General - no acute distress, appears comfortable Cardiovascular - regular rate and rhythm, S1-S2 Lungs - rhonchi and coarse sounds globally Abdomen - soft, nontender, no rebound or guarding Extremities - no edema bilaterally Neuro - awake and alert, no focal deficits Objective Data Active Medications Acetaminophen (Acetaminophen 325 Mg Tablet) 975 mg PO Q6H PRN PRN Reason: Pain, Mild (Pain Scale 1-3), fever or headache Last Admin: 07/26/24 00:43 Dose: 975 mg Documented By: REBECCA Albuterol Sulfate (Albuterol Sulfate (0.083%) 2.5 Mg/3 Ml Vial.Neb) 2.5 mg INHALE Q2H PRN PRN Reason: Shortness of Breath/Wheezing Last Admin: 07/27/24 03:30 Dose: 2.5 mg Documented By: VAN Albuterol/Ipratropium (Albuterol/Iprat 2.5/0.5mg 3 Ml Ampul.Neb) 3 ml INHALE RQ4H WHILE AWAKE [facility] Last Admin: 07/27/24 11:04 Dose: 3 ml Documented By: JOSE CARLOS Buprenorphine/Naloxone (Buprenorphine/Naloxone 8/2 Mg Film) 1.5 film SUBLINGUAL DAILY [facility] Last Admin: 07/27/24 10:25 Dose: 1.5 film Documented By: RAMSEY Calcium Carbonate (Calcium Carbonate 750 Mg Tab.Chew) 750 mg PO Q4H PRN PRN Reason: Heartburn Ceftriaxone Sodium (Ceftriaxone Sodium 1 Gm Vial) 1 gm IVPUSH Q24H [facility] Last Admin: 07/26/24 15:57 Dose: 1 gm Documented By: BRIONNA Clonazepam (Clonazepam 0.5 Mg Tablet) 0.25 mg PO TID PRN PRN Reason: Anxiety Last Admin: 07/27/24 10:28 Dose: 0.25 mg Documented By: RAMSEY Clopidogrel Bisulfate (Clopidogrel Bisulfate 75 Mg Tablet) 75 mg PO DAILY [facility] Last Admin: 07/27/24 10:25 Dose: 75 mg Documented By: RAMSEY Diphenhydramine HCl (Diphenhydramine Hcl 50 Mg/Ml Vial) 50 mg IVPUSH ONCE PRN PRN Reason: anxiety Last Admin: 07/27/24 04:34 Dose: 50 mg Documented By: GABY Doxycycline Monohydrate (Doxycycline Monohydrate 100 Mg Capsule) 100 mg PO Q12H [facility] Last Admin: 07/27/24 05:39 Dose: 100 mg Documented By: GABY Fluticasone/Umeclidinium/Vilanterol (Fluticasone/Umeclidinium/Vilanterol 200/62.5/25 Blst.W.Dev) 1 puff INHALE RDAILY [facility] Last Admin: 07/27/24 07:33 Dose: 1 puff Documented By: JOSE CARLOS Haloperidol Lactate (Haloperidol Lactate 5 Mg/Ml Vial) 2.5 mg IM ONCE PRN PRN Reason: agitation Last Admin: 07/27/24 04:34 Dose: 2.5 mg Documented By: GABY Levothyroxine Sodium (Levothyroxine Sodium 125 Mcg Tablet) 125 mcg PO DAILY@0630 [facility] Last Admin: 07/27/24 05:39 Dose: 125 mcg Documented By: GABY Lisinopril (Lisinopril 10 Mg Tablet) 10 mg PO DAILY [facility]; Protocol Last Admin: 07/27/24 10:24 Dose: 10 mg Documented By: RAMSEY Lorazepam (Lorazepam 2 Mg/Ml Vial) 1 mg IVPUSH ONCE PRN PRN Reason: anxiety or agitation Last Admin: 07/27/24 01:25 Dose: 1 mg Documented By: GABY Magnesium Hydroxide (Milk Of Magnesia 30 Ml Oral.Susp) 30 ml PO DAILY PRN PRN Reason: Constipation Meclizine HCl (Meclizine Hcl 25 Mg Tablet) 25 mg PO Q8H PRN PRN Reason: dizziness Melatonin (Melatonin 3 Mg Tablet) 6 mg PO BEDTIME PRN PRN Reason: Insomnia Last Admin: 07/26/24 20:49 Dose: 6 mg Documented By: GABY Methylprednisolone Sodium Succinate (Methylprednisolone Sod Succ 40 Mg/Ml Vial) 40 mg IVPUSH BID [facility] Last Admin: 07/27/24 10:25 Dose: 40 mg Documented By: RAMSEY Mirtazapine (Mirtazapine 15 Mg Tablet) 15 mg PO BEDTIME [facility] Last Admin: 07/26/24 20:49 Dose: 15 mg Documented By: GABY Olanzapine (Olanzapine 5 Mg Tablet) 5 mg PO BEDTIME [facility] Last Admin: 07/26/24 17:36 Dose: 5 mg Documented By: BRIONNA Roflumilast (Roflumilast 500 Mcg Tablet) 500 mcg PO DAILY [facility] Last Admin: 07/27/24 10:25 Dose: 500 mcg Documented By: RAMSEY Sertraline HCl (Sertraline Hcl 100 Mg Tablet) 100 mg PO DAILY [facility] Last Admin: 07/27/24 10:25 Dose: 100 mg Documented By: RAMSEY Sodium Chloride (0.9 % Sodium Chloride Flush 3 Ml Syringe) 3 ml IVFLUSH QSHIFT [facility] Last Admin: 07/27/24 10:29 Dose: 3 ml Documented By: RAMSEY Labs 07/27/24 06:32 07/27/24 06:32 Labs: Laboratory Results - last 24 hr 07/27/24 07/27/24 07/27/24 02:13 03:28 03:33 MCV MCH MCHC RDW Plt Count MPV Immature Gran % (Auto) Neut % (Auto) Lymph % (Auto) Walker % (Auto) Eos % (Auto) Baso % (Auto) Lymph # (Auto) Walker # (Auto) Eos # (Auto) Baso # (Auto) Abs Immat Gran (auto) Absolute Neuts (auto) Absolute Nucleated RBC Nucleated RBC % (auto) Hold Purple Top SEE NOTE VBG pH VBG pCO2 VBG pO2 VBG HCO3 VBG O2 Saturation VBG Base Excess Anion Gap 13 Estim Creat Clear Calc 40.2 Estimated GFR > 60 Random Glucose 124 H Calcium 9.2 Magnesium Urine Color Yellow Urine Appearance Clear Urine pH 5.5 Ur Specific [place] 1.015 Urine Protein Negative Urine Glucose (UA) Negative Urine Ketones Negative Urine Blood Negative Urine Nitrite Negative Ur Leukocyte Esterase Moderate (2+) H Urine RBC 0-2 Urine WBC 21-50 H Ur Squamous Epith Cells 3-5 Urine Bacteria None Seen Hyaline Casts 0-2 07/27/24 07/27/24 06:32 06:35 MCV 97.5 MCH 30.5 MCHC 31.3 RDW 14.6 Plt Count 120 L MPV 10.1 Immature Gran % (Auto) 0.6 H Neut % (Auto) 82.0 H Lymph % (Auto) 8.3 L Walker % (Auto) 9.1 Eos % (Auto) 0.0 Baso % (Auto) 0.0 Lymph # (Auto) 0.3 L Walker # (Auto) 0.3 Eos # (Auto) 0.0 Baso # (Auto) 0.0 Abs Immat Gran (auto) 0.02 Absolute Neuts (auto) 2.9 Absolute Nucleated RBC 0.000 Nucleated RBC % (auto) 0.0 Hold Purple Top VBG pH 7.36 VBG pCO2 70 VBG pO2 32 VBG HCO3 40 H VBG O2 Saturation 45.0 VBG Base Excess 12.2 Anion Gap 11 L Estim Creat Clear Calc 40.2 Estimated GFR > 60 Random Glucose 102 Calcium 9.0 Magnesium 1.9 Urine Color Urine Appearance Urine pH Ur Specific [place] Urine Protein Urine Glucose (UA) Urine Ketones Urine Blood Urine Nitrite Ur Leukocyte Esterase Urine RBC Urine WBC Ur Squamous Epith Cells Urine Bacteria Hyaline Casts Microbiology Microbiology Results: Microbiology 07/24/24 16:33 Blood Culture - Preliminary Blood - Venous No growth after 48 hours. 07/24/24 16:21 Blood Culture - Preliminary Blood - Venous No growth after 48 hours. Assessment and Plan (1) Acute and chronic respiratory failure with hypercapnia: Status: Acute (2) Pneumonia: Status: Acute Plan Gisela Amaya is a 68 y/o woman admitted with: Acute on chronic Hypercapnic respiratory failure secondary to acute exacerbation of COPD and pneumonia. Chronic hypoxic respiratory failure on 2 L of home oxygen. Complaining of persistent shortness of breath and cough Chest x-ray showed New patchy density in the retrocardiac region, could represent a small area of pneumonia, afebrile, normal WBC. Continue Supplemental O2 to keep O2 sats > 90%, on 2 L home oxygen. Continue bronchodilator therapy, IV steroids and IV ceftriaxone and po doxycycline - day #3 still with coarse sounds -- will continue IV steriods x 24 more hours Recommend out of bed to chair/IS blood culture negative times 24 hours Outpatient follow-up with pulmonology chronic hypercapnic respiratory failure Hyperkalemia reoslved Anxiety and depression. Continue Zoloft and Zyprexa. Hypothyroidism. Continue levothyroxine. Insomnia. Continue mirtazapine. Essential hypertension. Continue lisinopril. PVD. Continue Plavix. Tobacco dependence. quit 1 week ago, counseling done. Pain medication dependency on Suboxone. GI prophylaxis: Ppi DVT prophylaxis: SCDs. Code status: Full Patient will need continued inpatient hospitalization for hypercapnic respiratory failure and pneumonia treatment with bronchodilator therapy, empiric IV antibiotic therapy, supplemental oxygen and IV steroids. Quality Stroke Does the patient have a stroke diagnosis?: No VTE Prior VTE?: No VTE Risk Level:: Medical - moderate - high VTE Device Contraindication: N/A - Device Ordered VTE Drug Contraindication: N/A - Med Ordered
[2024-07-27] MEDS: cefTRIAXone sodium 1 GM VIAL IVPUSH (17:30)
[2024-07-27] MEDS: Melatonin 3 MG TABLET 6 MG PO (20:00)
[2024-07-27] MEDS: Mirtazapine 15 MG TABLET PO (20:00)
[2024-07-27] MEDS: OLANZapine 5 MG TABLET PO (20:00)
[2024-07-28] VITALS (11 sets, daily range): BP systolic 109–149; BP diastolic 56–72; PULSE 62–74; RESP 17–24; TEMP 36.2–37.4; O2SAT 93–99
[2024-07-28] MEDS: Doxycycline Monohydrate 100 MG CAPSULE PO ×2 (06:46→17:12)
[2024-07-28] MEDS: Levothyroxine Sodium 125 MCG TABLET PO (06:46)
[2024-07-28] MEDS: Albuterol/Iprat 2.5/0.5MG 3 ML AMPUL.NEB INHALE ×4 (07:33→19:28)
[2024-07-28] MEDS: Fluticasone/Umeclidinium/Vilanterol 200/62.5/25 BLST.W.DEV 1 PUFF INHALE (07:46)
[2024-07-28] MEDS: Sertraline HCL 100 MG TABLET PO (09:20)
[2024-07-28] MEDS: Buprenorphine/Naloxone 8/2 mg FILM 1.5 FILM SUBLINGUAL (09:20)
[2024-07-28] MEDS: lisinopriL 10 MG TABLET PO (09:20)
[2024-07-28] MEDS: predniSONE 20 MG TABLET 40 MG PO (09:20)
[2024-07-28] MEDS: Clopidogrel Bisulfate 75 MG TABLET PO (09:20)
[2024-07-28] MEDS: Roflumilast 500 MCG TABLET PO (09:20)
[2024-07-28] MEDS: 0.9 % Sodium Chloride Flush 3 ML SYRINGE IVFLUSH ×2 (09:21→17:12)
[2024-07-28] MEDS: clonazePAM 0.5 MG TABLET 0.25 MG PO ×2 (09:28→14:12)
--- NOTE | 2024-07-28 10:48 | HO.PM.IMPN ---
Subjective Subjective Date of Service: 07/28/24 Interval History: seen and examined denies any respiratory complaints states she feels dizzy when getting out of bed Review of Systems Negative except HPI/interval history. Physical Exam Vital Signs: Vital Signs: Last Vital Signs Temp 97.4 F 07/28/24 07:43 Pulse 63 07/28/24 07:43 Resp 18 07/28/24 07:43 BP 139/67 07/28/24 07:43 Pulse Ox 95 07/28/24 07:43 O2 Del Method Nasal Cannula 07/28/24 07:43 O2 Flow Rate 2 07/28/24 07:43 Oxygen Flow Rate 4 07/24/24 15:50 BMI result Body Mass Index 20.9 Const: Other: General - no acute distress, appears comfortable Cardiovascular - regular rate and rhythm, S1-S2 Lungs - rhonchi and coarse sounds globally Abdomen - soft, nontender, no rebound or guarding Extremities - no edema bilaterally Neuro - awake and alert, no focal deficits Objective Data Active Medications Acetaminophen (Acetaminophen 325 Mg Tablet) 975 mg PO Q6H PRN PRN Reason: Pain, Mild (Pain Scale 1-3), fever or headache Last Admin: 07/26/24 00:43 Dose: 975 mg Documented By: REBECCA Albuterol Sulfate (Albuterol Sulfate (0.083%) 2.5 Mg/3 Ml Vial.Neb) 2.5 mg INHALE Q2H PRN PRN Reason: Shortness of Breath/Wheezing Last Admin: 07/27/24 03:30 Dose: 2.5 mg Documented By: VAN Albuterol/Ipratropium (Albuterol/Iprat 2.5/0.5mg 3 Ml Ampul.Neb) 3 ml INHALE RQ4H WHILE AWAKE [facility] Last Admin: 07/28/24 07:33 Dose: 3 ml Documented By: ANGELICA Buprenorphine/Naloxone (Buprenorphine/Naloxone 8/2 Mg Film) 1.5 film SUBLINGUAL DAILY [facility] Last Admin: 07/28/24 09:20 Dose: 1.5 film Documented By: RAMSEY Calcium Carbonate (Calcium Carbonate 750 Mg Tab.Chew) 750 mg PO Q4H PRN PRN Reason: Heartburn Ceftriaxone Sodium (Ceftriaxone Sodium 1 Gm Vial) 1 gm IVPUSH Q24H [facility] Last Admin: 07/27/24 17:30 Dose: 1 gm Documented By: RAMSEY Clonazepam (Clonazepam 0.5 Mg Tablet) 0.25 mg PO TID PRN PRN Reason: Anxiety Last Admin: 07/28/24 09:28 Dose: 0.25 mg Documented By: RAMSEY Clopidogrel Bisulfate (Clopidogrel Bisulfate 75 Mg Tablet) 75 mg PO DAILY [facility] Last Admin: 07/28/24 09:20 Dose: 75 mg Documented By: RAMSEY Diphenhydramine HCl (Diphenhydramine Hcl 50 Mg/Ml Vial) 50 mg IVPUSH ONCE PRN PRN Reason: anxiety Last Admin: 07/27/24 04:34 Dose: 50 mg Documented By: GABY Doxycycline Monohydrate (Doxycycline Monohydrate 100 Mg Capsule) 100 mg PO Q12H [facility] Last Admin: 07/28/24 06:46 Dose: 100 mg Documented By: GABY Fluticasone/Umeclidinium/Vilanterol (Fluticasone/Umeclidinium/Vilanterol 200/62.5/25 Blst.W.Dev) 1 puff INHALE RDAILY [facility] Last Admin: 07/28/24 07:46 Dose: 1 puff Documented By: ANGELICA Haloperidol Lactate (Haloperidol Lactate 5 Mg/Ml Vial) 2.5 mg IM ONCE PRN PRN Reason: agitation Last Admin: 07/27/24 04:34 Dose: 2.5 mg Documented By: GABY Levothyroxine Sodium (Levothyroxine Sodium 125 Mcg Tablet) 125 mcg PO DAILY@0630 [facility] Last Admin: 07/28/24 06:46 Dose: 125 mcg Documented By: GABY Lisinopril (Lisinopril 10 Mg Tablet) 10 mg PO DAILY [facility]; Protocol Last Admin: 07/28/24 09:20 Dose: 10 mg Documented By: RAMSEY Lorazepam (Lorazepam 2 Mg/Ml Vial) 1 mg IVPUSH ONCE PRN PRN Reason: anxiety or agitation Last Admin: 07/27/24 01:25 Dose: 1 mg Documented By: GABY Magnesium Hydroxide (Milk Of Magnesia 30 Ml Oral.Susp) 30 ml PO DAILY PRN PRN Reason: Constipation Meclizine HCl (Meclizine Hcl 25 Mg Tablet) 25 mg PO Q8H PRN PRN Reason: dizziness Melatonin (Melatonin 3 Mg Tablet) 6 mg PO BEDTIME PRN PRN Reason: Insomnia Last Admin: 07/27/24 20:00 Dose: 6 mg Documented By: GABY Mirtazapine (Mirtazapine 15 Mg Tablet) 15 mg PO BEDTIME [facility] Last Admin: 07/27/24 20:00 Dose: 15 mg Documented By: GABY Olanzapine (Olanzapine 5 Mg Tablet) 5 mg PO BEDTIME [facility] Last Admin: 07/27/24 20:00 Dose: 5 mg Documented By: GABY Prednisone (Prednisone 20 Mg Tablet) 40 mg PO DAILY [facility] Last Admin: 07/28/24 09:20 Dose: 40 mg Documented By: RAMSEY Roflumilast (Roflumilast 500 Mcg Tablet) 500 mcg PO DAILY [facility] Last Admin: 07/28/24 09:20 Dose: 500 mcg Documented By: RAMSEY Sertraline HCl (Sertraline Hcl 100 Mg Tablet) 100 mg PO DAILY [facility] Last Admin: 07/28/24 09:20 Dose: 100 mg Documented By: RAMSEY Sodium Chloride (0.9 % Sodium Chloride Flush 3 Ml Syringe) 3 ml IVFLUSH QSHIFT [facility] Last Admin: 07/28/24 09:21 Dose: 3 ml Documented By: RAMSEY Labs 07/27/24 06:32 07/27/24 06:32 Assessment and Plan (1) Acute and chronic respiratory failure with hypercapnia: Status: Acute (2) Pneumonia: Status: Acute Plan Gisela Amaya is a 68 y/o woman admitted with: Acute on chronic Hypercapnic respiratory failure secondary to acute exacerbation of COPD and pneumonia. Chronic hypoxic respiratory failure on 2 L of home oxygen. Complaining of persistent shortness of breath and cough Chest x-ray showed New patchy density in the retrocardiac region, could represent a small area of pneumonia, afebrile, normal WBC. Continue Supplemental O2 to keep O2 sats > 90%, on 2 L home oxygen. Continue bronchodilator therapy, IV steroids and IV ceftriaxone and po doxycycline - day #4 s/p 3 days IV steroids, prednisone starting today Recommend out of bed to chair/IS blood culture negative times 24 hours Outpatient follow-up with pulmonology chronic hypercapnic respiratory failure Suspected hospital delirum appears to be improving -- no issues last 24 hours Dizziness possibly orthostatic based on history check orthostatic vitals PT evaluation Hyperkalemia reoslved Anxiety and depression. Continue Zoloft and Zyprexa. Hypothyroidism. Continue levothyroxine. Insomnia. Continue mirtazapine. Essential hypertension. Continue lisinopril. PVD. Continue Plavix. Tobacco dependence. quit 1 week ago, counseling done. Pain medication dependency on Suboxone. GI prophylaxis: Ppi DVT prophylaxis: SCDs. Code status: Full reason for continued hospitalization: Pt with dizziness and delirium, will require further evaluation of her dizziness and may need possible PT evalutation for safe home dispo Quality Stroke Does the patient have a stroke diagnosis?: No VTE Prior VTE?: No VTE Risk Level:: Medical - moderate - high VTE Device Contraindication: N/A - Device Ordered VTE Drug Contraindication: N/A - Med Ordered
[2024-07-28] MEDS: cefTRIAXone sodium 1 GM VIAL IVPUSH (17:12)
[2024-07-28] MEDS: Mirtazapine 15 MG TABLET PO (21:01)
[2024-07-28] MEDS: OLANZapine 5 MG TABLET PO (21:01)
[2024-07-28] MEDS: guaiFENesin 100 MG/5 ML 5 ML LIQUID PO (21:01)
[2024-07-29] VITALS (8 sets, daily range): BP systolic 105–168; BP diastolic 56–81; PULSE 58–71; RESP 16–19; TEMP 36.2–36.7; O2SAT 96–100
[2024-07-29] MEDS: guaiFENesin 100 MG/5 ML 5 ML LIQUID PO ×2 (04:20→17:25)
[2024-07-29] MEDS: Levothyroxine Sodium 125 MCG TABLET PO (06:33)
[2024-07-29] MEDS: Doxycycline Monohydrate 100 MG CAPSULE PO ×2 (06:34→17:25)
[2024-07-29] MEDS: Albuterol/Iprat 2.5/0.5MG 3 ML AMPUL.NEB INHALE ×3 (07:28→15:31)
[2024-07-29] MEDS: Fluticasone/Umeclidinium/Vilanterol 200/62.5/25 BLST.W.DEV 1 PUFF INHALE (07:28)
[2024-07-29] MEDS: Sertraline HCL 100 MG TABLET PO (09:09)
[2024-07-29] MEDS: clonazePAM 0.5 MG TABLET 0.25 MG PO ×2 (09:12→13:51)
[2024-07-29] MEDS: predniSONE 20 MG TABLET 40 MG PO (09:13)
[2024-07-29] MEDS: Buprenorphine/Naloxone 8/2 mg FILM 1.5 FILM SUBLINGUAL (09:13)
[2024-07-29] MEDS: Roflumilast 500 MCG TABLET PO (09:13)
[2024-07-29] MEDS: lisinopriL 10 MG TABLET PO (09:13)
[2024-07-29] MEDS: Clopidogrel Bisulfate 75 MG TABLET PO (09:13)
[2024-07-29] MEDS: 0.9 % Sodium Chloride Flush 3 ML SYRINGE IVFLUSH ×3 (09:15→15:46)
--- NOTE | 2024-07-29 10:49 | MHC.CM.PN ---
PER HOSPITALIST PT CAN BE MEDICALLY CLEARED FOR DC TO [facility], REF UPDATED AND REBROADCASTED, CM AWAITING BED OFFER., PT WILL NEED LESS THAN 30DAY D/T PSYCHIATRIC MEDS/SUBOXONE, CM WILL CONT TO FOLLOW.
--- NOTE | 2024-07-29 11:17 | P.PNIM_ITS ---
Subjective Subjective Date of Service: 07/29/24 Interval History: seen and examined this AM denies sob d/w her about going to [facility] after hospitalization -- she is agreeable Physical Exam 2 Vital Signs: Vital Signs: Last Vital Signs Temp 97.5 F 07/29/24 07:31 Pulse 58 07/29/24 07:31 Resp 16 07/29/24 07:31 BP 146/73 H 07/29/24 07:31 Pulse Ox 100 07/29/24 07:31 O2 Del Method Nasal Cannula 07/29/24 07:31 O2 Flow Rate 3 07/29/24 07:31 Oxygen Flow Rate 4 07/24/24 15:50 BMI result Body Mass Index 20.9 Const: Other: General - no acute distress, appears comfortable Cardiovascular - regular rate and rhythm, S1-S2 Lungs - normal respiratory effort, clear to auscultation bilaterally, no wheezing Abdomen - soft, nontender, no rebound or guarding Extremities - no edema bilaterally Neuro - awake and alert, no focal deficits; oriented to place, time and situation this AM Objective Data Active Medications Acetaminophen (Acetaminophen 325 Mg Tablet) 975 mg PO Q6H PRN PRN Reason: Pain, Mild (Pain Scale 1-3), fever or headache Last Admin: 07/26/24 00:43 Dose: 975 mg Documented By: REBECCA Albuterol Sulfate (Albuterol Sulfate (0.083%) 2.5 Mg/3 Ml Vial.Neb) 2.5 mg INHALE Q2H PRN PRN Reason: Shortness of Breath/Wheezing Last Admin: 07/27/24 03:30 Dose: 2.5 mg Documented By: VAN Albuterol/Ipratropium (Albuterol/Iprat 2.5/0.5mg 3 Ml Ampul.Neb) 3 ml INHALE RQ4H WHILE AWAKE COUNTS INCLUDE 234 BEDS AT THE [facility] Last Admin: 07/29/24 07:28 Dose: 3 ml Documented By: LINDA Buprenorphine/Naloxone (Buprenorphine/Naloxone 8/2 Mg Film) 1.5 film SUBLINGUAL DAILY COUNTS INCLUDE 234 BEDS AT [facility] Last Admin: 07/29/24 09:13 Dose: 1.5 film Documented By: RADHA Calcium Carbonate (Calcium Carbonate 750 Mg Tab.Chew) 750 mg PO Q4H PRN PRN Reason: Heartburn Ceftriaxone Sodium (Ceftriaxone Sodium 1 Gm Vial) 1 gm IVPUSH Q24H COUNTS INCLUDE 234 BEDS AT THE [facility] Last Admin: 07/28/24 17:12 Dose: 1 gm Documented By: RAMSEY Clonazepam (Clonazepam 0.5 Mg Tablet) 0.25 mg PO TID PRN PRN Reason: Anxiety Last Admin: 07/29/24 09:12 Dose: 0.25 mg Documented By: RADHA Clopidogrel Bisulfate (Clopidogrel Bisulfate 75 Mg Tablet) 75 mg PO DAILY COUNTS INCLUDE 234 BEDS AT [facility] Last Admin: 07/29/24 09:13 Dose: 75 mg Documented By: RADHA Diphenhydramine HCl (Diphenhydramine Hcl 50 Mg/Ml Vial) 50 mg IVPUSH ONCE PRN PRN Reason: anxiety Last Admin: 07/27/24 04:34 Dose: 50 mg Documented By: GABY Doxycycline Monohydrate (Doxycycline Monohydrate 100 Mg Capsule) 100 mg PO Q12H COUNTS INCLUDE 234 BEDS AT [facility] Last Admin: 07/29/24 06:34 Dose: 100 mg Documented By: FREEMAN Fluticasone/Umeclidinium/Vilanterol (Fluticasone/Umeclidinium/Vilanterol 200/62.5/25 Blst.W.Dev) 1 puff INHALE RDAILY COUNTS INCLUDE 234 BEDS AT [facility] Last Admin: 07/29/24 07:28 Dose: 1 puff Documented By: LINDA Guaifenesin (Guaifenesin 100 Mg/5 Ml 5 Ml Liquid) 5 ml PO Q4H PRN PRN Reason: Cough Last Admin: 07/29/24 04:20 Dose: 5 ml Documented By: FREEMAN Haloperidol Lactate (Haloperidol Lactate 5 Mg/Ml Vial) 2.5 mg IM ONCE PRN PRN Reason: agitation Last Admin: 07/27/24 04:34 Dose: 2.5 mg Documented By: GABY Levothyroxine Sodium (Levothyroxine Sodium 125 Mcg Tablet) 125 mcg PO DAILY@0630 COUNTS INCLUDE 234 BEDS AT [facility] Last Admin: 07/29/24 06:33 Dose: 125 mcg Documented By: FREEMAN Lisinopril (Lisinopril 10 Mg Tablet) 10 mg PO DAILY COUNTS INCLUDE 234 BEDS AT [facility]; Protocol Last Admin: 07/29/24 09:13 Dose: 10 mg Documented By: RADHA Lorazepam (Lorazepam 2 Mg/Ml Vial) 1 mg IVPUSH ONCE PRN PRN Reason: anxiety or agitation Last Admin: 07/27/24 01:25 Dose: 1 mg Documented By: GABY Magnesium Hydroxide (Milk Of Magnesia 30 Ml Oral.Susp) 30 ml PO DAILY PRN PRN Reason: Constipation Meclizine HCl (Meclizine Hcl 25 Mg Tablet) 25 mg PO Q8H PRN PRN Reason: dizziness Melatonin (Melatonin 3 Mg Tablet) 6 mg PO BEDTIME PRN PRN Reason: Insomnia Last Admin: 07/27/24 20:00 Dose: 6 mg Documented By: GABY Mirtazapine (Mirtazapine 15 Mg Tablet) 15 mg PO BEDTIME COUNTS INCLUDE 234 BEDS AT [facility] Last Admin: 07/28/24 21:01 Dose: 15 mg Documented By: FREEMAN Olanzapine (Olanzapine 5 Mg Tablet) 5 mg PO BEDTIME COUNTS INCLUDE 234 BEDS AT [facility] Last Admin: 07/28/24 21:01 Dose: 5 mg Documented By: FREEMAN Prednisone (Prednisone 20 Mg Tablet) 40 mg PO DAILY COUNTS INCLUDE 234 BEDS AT [facility] Last Admin: 07/29/24 09:13 Dose: 40 mg Documented By: RADHA Roflumilast (Roflumilast 500 Mcg Tablet) 500 mcg PO DAILY COUNTS INCLUDE 234 BEDS AT [facility] Last Admin: 07/29/24 09:13 Dose: 500 mcg Documented By: RADHA Sertraline HCl (Sertraline Hcl 100 Mg Tablet) 100 mg PO DAILY COUNTS INCLUDE 234 BEDS AT [facility] Last Admin: 07/29/24 09:09 Dose: 100 mg Documented By: RADHA Sodium Chloride (0.9 % Sodium Chloride Flush 3 Ml Syringe) 3 ml IVFLUSH QSHIFT COUNTS INCLUDE 234 BEDS AT [facility] Last Admin: 07/29/24 09:15 Dose: 3 ml Documented By: RADHA Labs 07/27/24 06:32 07/27/24 06:32 Microbiology Microbiology Results: Microbiology 07/27/24 Unknown Urine Culture - Final Urine clean catch - Clean Catch Midstream No growth. Assessment and Plan (1) Acute and chronic respiratory failure with hypercapnia: Status: Acute (2) Pneumonia: Status: Acute Plan Gisela Amaya is a 68 y/o woman admitted with: Acute on chronic Hypercapnic respiratory failure secondary to acute exacerbation of COPD and pneumonia. Chronic hypoxic respiratory failure on 2 L of home oxygen. SOB and cough improved Chest x-ray showed New patchy density in the retrocardiac region, could represent a small area of pneumonia Continue Supplemental O2 to keep O2 sats > 90%, on 2 L home oxygen. Continue bronchodilator therapy, IV steroids and IV ceftriaxone and po doxycycline - day #5/7 (change to PO uon discharge prednisone with a short taper Recommend out of bed to chair/IS blood culture negative times 24 hours Outpatient follow-up with pulmonology chronic hypercapnic respiratory failure Suspected hospital delirum appears to be improving -- no issues last 48 hours Dizziness orthostatics negative PT evaluation done -- recs for [facility] which pt is agreeable on Hyperkalemia reoslved Anxiety and depression. Continue Zoloft and Zyprexa. Hypothyroidism. Continue levothyroxine. Insomnia. Continue mirtazapine. Essential hypertension. Continue lisinopril. PVD. Continue Plavix. Tobacco dependence. quit 1 week ago, counseling done. Pain medication dependency on Suboxone. GI prophylaxis: Ppi DVT prophylaxis: SCDs. Code status: Full reason for continued hospitalization: medically stable for discharge, d/c once bed available called patients family at patients request(Sister was not home, hence updates given to patients brother) Quality Stroke Does the patient have a stroke diagnosis?: No VTE Prior VTE?: No VTE Risk Level:: Medical - moderate - high VTE Device Contraindication: N/A - Device Ordered VTE Drug Contraindication: N/A - Med Ordered
--- NOTE | 2024-07-29 11:40 | PM.DS ---
DS: Providers Provider Date of Service: 07/29/24 Date of admission: 07/25/24 05:18 Date of discharge: 07/29/24 Primary care physician: Eddie Watkins MD DS: Diagnosis Discharge Diagnosis (1) Acute and chronic respiratory failure with hypercapnia: Status: Acute (2) Pneumonia: Status: Acute (3) Acute delirium: Status: Acute DS: Summary Hospital Course Hospital Course: HPI From admission H&P: Gisela Amaya is a 68 years old woman with past medical history significant for COPD on home oxygen 2L/min, depression, anxiety and essential hypertension presents to the emergency department complaining of worsening shortness of breath, wheezing and productive cough. Patient is a poor historian and prefers to sleep. In the ED, she was found to have fever, tachypnea and tachycardia. Blood pressure has been stable. Blood workup showed no leukocytosis. Hemoglobin and platelets are unremarkable. There were no significant electrolyte imbalances except for slight elevation of potassium, 5.2. CO2 is 40 which is around his baseline. BUN is 17 and creatinine 0.75. LFTs are normal. Urinalysis showed no evidence of UTI. COVID-19, influenza RSV is negative. ABG showed respiratory acidosis. CXR showed new patchy density in the retrocardiac region that may represent small area of pneumonia. Due to respiratory acidosis patient had a trial of BiPAP in the emergency department. She has been off BiPAP over the last hour. Repeat venous blood gas for significant correction of CO2 retention. Hospital Course: Patient was treated with BiPAP therapy in the emergency room for acute hypercapnic respiratory failure. She was initiated on IV antibiotics, IV systemic steroids, bronchodilator therapy and admitted for further care. Over the course of her hospitalization, her hypercapnic respiratory failure has improved and she is tolerating her baseline supplemental oxygen. Her blood cultures are negative and she remains afebrile. He will be transitioned to oral cefuroxime and doxycycline for 4 more doses, end date on 07/30/2024. She will also be sent on 4 more days of prednisone therapy. She will be referred to Pulmonary for outpatient follow-up and to establish care with them. The patient's hospital course was complicated by suspected hospital delirium. She required close observation and pharmacologic treatment. However as her underlying condition has improved the patient has now trended towards her baseline. Suspect that the patient has some memory loss/dementia undiagnosed. She should follow-up with her primary care doctor upon discharge from halfway facility for further evaluation. Patient is seen and examined on the day of discharge. She is agreeable on transition to short-term rehab. Anticipate a less than 30 day stay at halfway facility. Final discharge diagnosis 1. Acute on chronic respiratory failure with hypercapnia 2. Chronic respiratory failure with hypoxia 3. Community-acquired pneumonia 4. COPD exacerbation 5. Acute delirium 6. Dizziness 7. Hyperkalemia 8. Chronic opiate therapy on Suboxone 9. Hypertension 10. Hypothyroidism 11. Insomnia 12. Tobacco dependence, quit 1 week prior to hospitalization Time Attestation Discharge Coordination Time (in mins): 40 Quality: Safe Use of Opioids Does Pt have an Active Cancer Diagnosis on the Problem List?: No Quality: Stroke Does the patient have a stroke diagnosis?: No Physical Exam Vital Signs: Vital Signs: Last Vital Signs Temp 97.7 F 07/29/24 11:19 Pulse 60 07/29/24 11:23 Resp 19 07/29/24 11:23 BP 105/56 L 07/29/24 11:19 Pulse Ox 96 07/29/24 11:19 O2 Del Method Nasal Cannula 07/29/24 11:19 O2 Flow Rate 3 07/29/24 11:19 Oxygen Flow Rate 4 07/24/24 15:50 BMI result Body Mass Index 20.9 DS: Data Data Completed and Pending Labs on day of discharge: Preliminary micro results at discharge 07/24/24 16:33 Blood Culture - Preliminary Blood - Venous No growth after 48 hours. 07/24/24 16:21 Blood Culture - Preliminary Blood - Venous No growth after 48 hours. Discharge Plan Discharge Anticipated Discharge Date/Time: 07/29/24 11:39 Patient Disposition: Xfer SNF Discharge Diagnosis: Respiratory failure Referrals: Jesus Chaudhari MD [Physician] - 1 Week (chronic resp failure, needs to establish pulmonary follow up) Physician,Ghislaine J [Physician] - 1 Week Discharge Medications: New cefuroxime axetil 500 mg tablet 500 mg PO Q12H Qty: 4 0RF doxycycline hyclate 100 mg capsule 100 mg PO BID Qty: 4 0RF prednisone 20 mg tablet 40 mg PO DAILY Qty: 8 0RF Continued albuterol sulfate 2.5 mg /3 mL (0.083 %) solution for nebulization 2.5 mg inhalation QID PRN (Reason: Wheezing) (DME) Walker with wheels and baske, seat, and break See Rx Instructions .Route .MEDSUPPLY Qty: 1 0RF Rx Instructions: Walker with wheels, break, seat and basket sertraline 100 mg tablet 100 mg PO DAILY 90 Days Qty: 90 0RF (DME) Pant Liners, Large Pad See Rx Instructions .Route Qty: 96 5RF Rx Instructions: Change as needed, up to 3 per day lisinopril 10 mg tablet 10 mg PO DAILY 90 Days Qty: 90 0RF clopidogrel [Plavix] 75 mg tablet 75 mg PO DAILY 90 Days Qty: 90 1RF olanzapine 5 mg tablet 5 mg PO BEDTIME mirtazapine 15 mg tablet 15 mg PO BEDTIME albuterol sulfate [Ventolin HFA] 90 mcg/actuation HFA aerosol inhaler 2 puff INHALATION Q6H PRN (Reason: Shortness Of Breath Or Wheezing) roflumilast 500 mcg tablet 500 mcg PO DAILY levothyroxine 125 mcg tablet 125 mcg PO DAILY@0600 meclizine 25 mg Tablet 25 mg PO Q8H PRN (Reason: dizziness) Qty: 30 0RF buprenorphine-naloxone 8-2 mg film 1.5 film sublingual DAILY clonazepam 0.5 mg tablet 0.25 mg PO TID PRN (Reason: Anxiety) Trelegy Ellipta 200-62.5-25 mcg blister with device 1 ea inhalation DAILY Discharge Orders: Discharge Order (Routine); Ordered 07/29/24 Ordered By: Davonte Akins Diet: Advance to usual diet Activity on Discharge: As tolerated Stand Alone Forms: Patient Portal Discharge page Print Language: Portuguese Care Plan Goals: To stay healthy and out of the hospital. Health Concerns: See discharge summary Plan of Treatment: See discharge summary Assessment: See discharge summary
--- NOTE | 2024-07-29 11:53 | MHC.CM.PN ---
Addendum entered by Raegan Perry RN 07/29/24 15:17: UNCLEAR AT THIS TIME [facility] D/T LACK OF DOCUMENTATION SURROUNDING IM'S ON OVERNIGHT SHIFT OF 07/27/24. Addendum entered by Raegan Perry RN 07/29/24 13:41: PT COMPLETED A HCP NAMING HER SISTER LETICIA BARAKAT [phone] HER [facility], NO ALTERNATE CHOSEN, COPY UPLOADED TO [facility] AND PLACED IN CHART. Original Note: IMM 07/29/24, PT MEDIC[facility]
[2024-07-29] MEDS: cefTRIAXone sodium 1 GM VIAL IVPUSH (15:46)
== END 2024-07-29 18:46 | disposition skilled nursing facility (03) | DRG 193 ==
LOC: HO.ED 22:21 → HO.EDOVER 07-25 06:32 → HO.IMC 07-26 09:44
PROVIDERS: Emergency Medicine; Hospitalist; Admitting Provider Internal Medicine; Emergency Provider Emergency Medicine; PCP Internal Medicine; Visit Provider Family Medicine
DX: J18.9 Pneumonia, unspecified organism (principal); J96.21 Acute and chronic respiratory failure with hypoxia; J96.22 Acute and chronic respiratory failure with hypercapnia; J44.0 Chronic obstructive pulmonary disease with (acute) lower respiratory infection; J44.1 Chronic obstructive pulmonary disease with (acute) exacerbation; F11.20 Opioid dependence, uncomplicated; F05 Delirium due to known physiological condition; Z23 Encounter for immunization; F41.9 Anxiety disorder, unspecified; F32.A Depression, unspecified; I73.9 Peripheral vascular disease, unspecified; E03.9 Hypothyroidism, unspecified; E87.5 Hyperkalemia; G47.00 Insomnia, unspecified; I10 Essential (primary) hypertension; Z20.822 Contact with and (suspected) exposure to COVID-19; Z99.81 Dependence on supplemental oxygen; Z87.891 Personal history of nicotine dependence; Z79.02 Long term (current) use of antithrombotics/antiplatelets; Z79.890 Hormone replacement therapy; Z79.899 Other long term (current) drug therapy
CPT/HCPCS: 0241U; 36415; 71045; 80048; 80076; 81001; 82803; 83605; 83690; 83735; 83880; 84443; 84484; 85025; 85610; 87040; 87086; 90656; 93005; 94640; 97162; 99285; J0696; J1200; J1630; J2060; J2919; J3475; J7120

== ENCOUNTER → 2024-07-24 16:14 | Outpatient (BNV) | payer MEDICARE, MEDICAID, SELFPAY | PROVIDERS: Admitting Provider Internal Medicine; Emergency Provider Emergency Medicine; Visit Provider Internal Medicine Cardiovascular Disease | DX: A41.9 Sepsis, unspecified organism (principal) | CPT/HCPCS: 93010 ==

== ENCOUNTER → 2024-07-24 16:21 | Outpatient (BNV) | payer MEDICARE, MEDICAID, SELFPAY | PROVIDERS: Emergency Provider Emergency Medicine; Visit Provider Internal Medicine | DX: J96.22 Acute and chronic respiratory failure with hypercapnia (principal); J18.9 Pneumonia, unspecified organism | CPT/HCPCS: 99223; 99232; 99233; 99239; 99499 ==

== ENCOUNTER 2024-09-08 09:40 | Inpatient (IN) | payer MEDICARE, MEDICAID, SELFPAY ==
[2024-09-08] VITALS (11 sets, daily range): BP systolic 103–130; BP diastolic 58–72; PULSE 54–122; RESP 14–22; TEMP 36.1–38.2; O2SAT 76–100; BMI 19.4
--- NOTE | ~2024-09-08 | XR_ITS ---
EXAMINATION: XR CHEST CLINICAL INFORMATION: pneumonia COMPARISON: 09/08/2024. 07/24/2024. 06/15/2024. TECHNIQUE: 2 views of the chest were obtained. FINDINGS: Cardiac size is normal. Mediastinal contours are normal. Enlarged pulmonary arteries in the hilar regions, unchanged. Lungs are hyperaerated with diffusely increased interstitial markings bilaterally, findings consistent with emphysema normal underlying interstitial lung disease. There is a stellate nodule in the right upper lung distribution, unlikely to represent summation artifact. This is a likely pulmonary nodule or region of scarring. The patchy increased opacities in the left lower lung, as well as the left upper mid and left upper lung appear largely stable from prior exams and likely reflect underlying chronic disease. Within the confines of extensive underlying lung disease, no definite acute disease is identified. There is no pleural effusion or pneumothorax. Azygos lobe noted. There is no focal osseous or soft tissue abnormality. XR/XR chest 2V IMPRESSION: 1. Emphysema with extensive underlying chronic interstitial lung disease. Within these confines, no definite acute superimposed disease identified. Subtle pneumonia could easily be obscured by the degree of underlying lung disease. 2. Stellate nodular opacity right upper lobe, suspicious for lung nodule versus foci of scar. Correlation with CT recommended. 3. Enlarged pulmonary artery suggesting pulmonary arterial hypertension. Electronically signed by: Chris Kyle MD 09/10/2024 02:18 PM [facility]
--- NOTE | ~2024-09-08 | XR_ITS ---
CLINICAL HISTORY: chest pain 1 view chest x-ray Comparison: CR/IN/SR - XR CHEST 1V - 07/24/24 18:08 EST CR/IN/SR - XR CHEST 1V - 06/15/24 18:00 EDT CR/SR - XR CHEST 1V - 01/28/22 09:11 EDT Findings: Emphysema and diffuse chronic interstitial lung disease as on priors. No clearly new or focal infiltrate/consolidation. Small stellate opacity projecting over the right 6th rib may reflect summation effect. Attention directed for follow-up. Similar incidental azygous lobe and fissure. Resolution of the airspace disease in the retrocardiac left lower lung on prior. Normal heart size. Similarly enlarged central pulmonary arteries. Trachea is midline. Bones unchanged. Upper abdomen unremarkable. Impression: Severe chronic interstitial lung disease without focal infiltrate/consolidation. Presumed pseudonodule right upper lung. Attention directed for follow-up. This document has been electronically signed by: Aldo Macario MD on 09/08/2024 11:06:32
--- NOTE | ~2024-09-08 | CT_ITS ---
CLINICAL HISTORY: Stellate nodular opacity right upper lobe, suspici CT chest without contrast Comparison: None Findings: There is severe coronary artery disease. There is mild aneurysmal dilatation of the ascending thoracic aorta which measures up to 4 cm in greatest diameter. There is mild dilatation of the main pulmonary trunk suggesting pulmonary artery hypertension. The visualized thyroid and mediastinum are unremarkable. There is severe centrilobular emphysema. Bullous changes are seen in the left perihilar region. There is generalized mild bronchial wall thickening compatible with bronchitis. A focal area of pleural-based consolidation with air bronchograms is seen in the left upper lobe on image number 232 of series 5. There are scattered areas of pleural/parenchymal scarring without significant discrete nodules noted The upper abdomen is unremarkable. No acute fractures. Thickened interlobular septa are seen. IMPRESSION: 1. There are areas of pleural/parenchymal scarring and a focus of consolidation in the left upper lobe but no discrete pulmonary nodules. In particular a nodule is not seen in the area in question. please obtain a 1 year follow-up examination to establish a baseline and demonstrate stability. 2. Severe centrilobular emphysema. 3. Bronchitis. 4. Thickened interlobular septa consistent with acute or chronic interstitial disease. Interstitial edema is not excluded. This document has been electronically signed by: Lavelle Kelley MD on 09/11/2024 12:21:25
--- NOTE | ~2024-09-08 | CT_ITS ---
EXAMINATION: CT HEAD WITHOUT IV CONTRAST HISTORY: hallucinations. TECHNIQUE: Unenhanced helical CT of the head was performed per standard departmental protocol. Coronal and sagittal reformats of the head were also evaluated. One or more of the following techniques was used for dose reduction: Automated exposure control, adjustment of the mA and/or kV according to patient size, use of iterative reconstruction technique. DLP: 725 mGy-cm COMPARISON: There are no prior studies for comparison. FINDINGS: BRAIN: There is mild prominence of the ventricular system and cortical sulci, consistent with atrophy. There is normal canela/white differentiation. There is no mass effect or midline shift. No intra- or extra-axial fluid collections are identified. SINUSES: The visualized paranasal sinuses are clear. The mastoid air cells and middle ear cavities are well pneumatized. ORBITS: The visualized orbits are unremarkable. BONES/SOFT TISSUES: The extracranial soft tissues are unremarkable. The calvarium is intact. No suspicious lytic or sclerotic lesions. CT/CT head/brain wo IV con IMPRESSION: No acute intracranial abnormality. Electronically signed by: Rory Mae MD 09/13/2024 01:59 PM EST
--- NOTE | 2024-09-08 09:46 | ECG_ITS ---
Test Reason : sob/chest pain Blood Pressure : */* mmHG Vent. Rate : 95 BPM Atrial Rate : * BPM P-R Int : * ms QRS Dur : 66 ms QT Int : 312 ms P-R-T Axes : * 72 72 degrees QTcB Int : 392 ms Artifact in tracing Normal sinus rhythm Premature atrial complexes Abnormal ECG When compared with ECG of 24-Jul-2024 17:42, Premature atrial complexes noted Referred By: Dieudonne Feng Electronically Signed By: MARIA ISABEL SY
--- NOTE | 2024-09-08 09:51 | ED.SOB ---
HPI - SOB/Dyspnea General Chief Complaint: Dyspnea Stated Complaint: CP,SOB 74% RA,12LPM NRB 91% PER EMS Time Seen by Provider: 09/08/24 09:46 Source: patient Mode of arrival: EMS History of Present Illness HPI Narrative: This is a 68 years old the patient with COPD O2 dependent presented to the emergency room via ambulance in respiratory distress she was hypoxic per EMS she was placed on non-rebreather mask she was satting 74% at home. She is complaining of chest pain as well since yesterday. She denies any fever chills vomiting and diarrhea. MD elicited complaint: shortness of breath and cough Pertinent past history: COPD Onset (ago): day(s) (1) Context: recent illness Timing: constant Severity: moderate Exacerbating factors: nothing Relieving factors: oxygen Known history of: COPD Associated symptoms: denies other symptoms Related Data Home Medications ?Medication ?Instructions ?Recorded ?Confirmed albuterol sulfate 2.5 mg/3 mL 2.5 mg inhalation QID PRN Wheezing 08/25/20 07/24/24 (0.083 %) solution for nebulization fluticasone fur. 200 mcg-umeclid 1 ea inhalation DAILY 01/05/24 07/24/24 62.5 mcg-vilant 25 mcg inhalat.powder (Trelegy Ellipta) albuterol sulfate 90 mcg/actuation 2 puff inhalation Q6H PRN 06/16/24 07/24/24 aerosol inhaler (Ventolin HFA) Shortness Of Breath Or Wheezing mirtazapine 15 mg tablet 15 mg PO BEDTIME 06/16/24 07/24/24 olanzapine 5 mg tablet 5 mg PO BEDTIME 06/16/24 07/24/24 roflumilast 500 mcg tablet 500 mcg PO DAILY 06/16/24 07/24/24 clonazepam 0.5 mg tablet 0.25 mg PO BID PRN Anxiety 09/08/24 Previous Rx's ?Medication ?Instructions ?Recorded Walker with wheels and baske, #1 ea 05/04/21 seat, and break sertraline 100 mg tablet 100 mg PO DAILY 90 days #90 tabs 02/28/23 incontinence pad, liner, disp #96 ea 02/07/24 (Pant Liners, Large pads) meclizine 25 mg tablet 25 mg PO Q8H PRN dizziness #30 tabs 06/21/24 lisinopril 10 mg tablet 10 mg PO DAILY 90 days #90 tabs 07/08/24 clopidogrel 75 mg tablet (Plavix) 75 mg PO DAILY bilateral leg 07/09/24 stents 90 days #90 tabs buprenorphine 8 mg-naloxone 2 mg 1.5 film sublingual DAILY #3 ea 07/29/24 sublingual film levothyroxine 125 mcg tablet 125 mcg PO DAILY@0600 #90 tabs 08/29/24 Allergies Allergy/AdvReac Type Severity Reaction Status Date / Time codeine Allergy Unknown hives Verified 09/08/24 09:54 NSAIDS (Non-Steroidal AdvReac Mild On blood Verified 09/08/24 09:54 Anti-Inflamma thinners Review of Systems Constitutional: Constitutional: Reports no additional constitutional complaints Cardiovascular: Cardiovascular: Reports no additional cardiovascular complaints Respiratory: Respiratory: Reports as per [facility] Past Medical History Attestation statement: The following information was validated with the patient. Source: unable to obtain Medical History Acute and chronic respiratory failure with hypercapnia Sepsis Pneumonia Acute exacerbation of chronic obstructive pulmonary disease (COPD) Hypertension, essential Depression, major, recurrent O2 dependent COPD, severe Surgical History History of surgery Amputated toe Hx of cholecystectomy History of appendectomy Family History Family History Father No problems noted. Mother Stomach cancer Brother No problems noted. Brother No problems noted. Brother No problems noted. Brother No problems noted. Brother No problems noted. Brother No problems noted. Sister No problems noted. Sister No problems noted. Sister No problems noted. Sister No problems noted. Social History Social History Household Members: Family Housing: House Do you presently have visiting nurse or other home services: No Alcohol intake: never Comment: refusing for staff to remain with patient in bathroom Patient Tobacco Use Status: Former Tobacco user Tobacco use type: Cigarette Cigarettes Per Day: 3 Smoked in Last 30 Days: No e-Cigarette/Vaping Use: Never Used Use of substances other than those prescribed or required for medical reasons: No Substance Use Type: Marijuana Advance Directives: No Advance Directives Information Provided: Yes Do you have a plan to hurt others: No Plan Patient : No service: No Current occupational status: retired and disabled Cognitive needs: No Hearing needs: No Vision needs: No Physical Exam Vital Signs: Vital Signs: Last Vital Signs Temp 100.8 F H 09/08/24 10:28 Pulse 71 09/08/24 13:57 Resp 20 09/08/24 13:57 BP 108/63 09/08/24 13:57 Pulse Ox 93 09/08/24 13:57 O2 Del Method Oxymask 09/08/24 13:57 O2 Flow Rate 4 09/08/24 13:57 Oxygen Flow Rate 4 09/08/24 09:51 BMI result Body Mass Index 19.4 Mild distress Const: General: cooperative Nutritional Appearance: average body habitus Orientation/consciousness: patient oriented x3 HEENT: Head: Yes normal to inspection General nose exam: Normal external nose present Face and sinus: Yes normal facial exam Neck: Neck: Yes normal visual inspection and Yes full ROM Chest: Chest palpation & inspection: normal inspection of the chest Resp: Effort & Inspection: abnormal respiratory pattern Auscultation: rhonchi and wheezes Cardio: Jugular venous distension: no JVD Rate: regular rate Rhythm: regular rhythm GI: Inspection: Yes normal to inspection Palpation (GI): Soft to palpation, not firm, nontender and no guarding Skin: General skin exam: no rashes or lesions noted, elasticity normal and turgor normal Neuro: General: patient oriented x3 Course Reevaluation(s) Reevaluation #1: doing better d/w hospitalist Dr Foote Time: 14:34 Medications Administered Discontinued Medications Generic Name Dose Route Start Last Admin Trade Name Freq PRN Reason Stop Dose Admin Acetaminophen 975 mg 09/08/24 10:27 09/08/24 10:56 Acetaminophen 325 Mg Tablet PO 09/08/24 10:28 975 mg ONCE ONE Administration Albuterol Sulfate 5 mg/ 0 mg 09/08/24 09:56 09/08/24 10:05 Albuterol/Ipratropium 3 ml INHALE 09/08/24 09:57 1 each ONCE ONE Administration Doxycycline Hyclate 100 mg/ 250 mls @ 166.67 mls/hr 09/08/24 13:02 09/08/24 13:40 Sodium Chloride IV 09/08/24 14:31 166.67 mls/hr ONCE ONE Administration Methylprednisolone Sodium Succinate 125 mg 09/08/24 09:47 09/08/24 10:16 Methylprednisolone Sod Succ 125 Mg/2 Ml Vial IVPUSH 09/08/24 09:48 125 mg ONCE ONE Administration Medical Decision Making Medical Decision Making MDM Narrative: Will obtain x-ray labs are Differential Diagnosis Differential Diagnoses: The differential diagnosis associated with the presentation includes COPD /CHF Admission/Observation Consideration of admission/observation: Escalation of care including admission/observation considered Consult Healthcare Provider Management of the patient was discussed with: Hospitalist Dr Foote Lab Data [facility] Lab Attestation statement: I reviewed the patient's lab results. 09/08/24 10:14 09/08/24 10:14 Labs: Lab Results 09/08/24 09/08/24 09/08/24 Range/Units 10:14 10:16 10:39 WBC 11.2 H (4.8-10.8) X10*3/uL RBC 3.86 L (4.20-5.50) X10*6/uL Hgb 11.6 L (12.0-16.0) g/dl Hct 36.4 L (37.0-47.0) % MCV 94.3 (80.0-98.0) fL MCH 30.1 (27.0-33.0) pg MCHC 31.9 (31.0-35.0) g/dl RDW 13.7 (11.0-16.0) % Plt Count 135 L (160-400) X10*3/uL MPV 10.4 (9.4-12.3) fL Immature Gran % (Auto) 0.4 (0.0-0.4) % Neut % (Auto) 85.8 H (45-73) % Lymph % (Auto) 4.5 L (20-40) % [facility] [facility] % (Auto) 8.7 (2-11) % Eos % (Auto) 0.2 (0-4) % Baso % (Auto) 0.4 (0-2) % Lymph # (Auto) 0.5 L (1.2-4.9) X10*3/uL [facility] # (Auto) 1.0 (0.1-1.2) X10*3/uL Eos # (Auto) 0.0 (0.0-0.4) X10*3/uL Baso # (Auto) 0.1 (0.0-0.2) X10*3/uL Abs Immat Gran (auto) 0.04 H (0.00-0.03) X10*3/uL Absolute Neuts (auto) 9.6 H (2.0-8.3) x10*3/uL Absolute Nucleated RBC 0.000 (0.0-0.012) X10*3/uL Nucleated RBC % (auto) 0.0 (0.0-0.2) /100WBC VBG pH 7.42 (7.32-7.43) VBG pCO2 66 mmHg VBG pO2 38 mmHg VBG HCO3 43 H (22-26) mmol/L VBG O2 Saturation 65.0 % VBG Base Excess 15.3 mmol/L Sodium 136 (135-145) mmol/L Potassium 4.5 (3.3-5.1) mmol/L Chloride 95 L (96-108) mmol/L Carbon Dioxide 33 H (22-29) mmol/L Anion Gap 13 (12-20) BUN 22 H (9-16) mg/dL Creatinine 0.71 (0.5-1.4) mg/dL Estim Creat Clear Calc 59.8 Estimated GFR > 60 Random Glucose 153 H (60-115) mg/dL Lactic Acid 1.0 (0.5-2.0) mmol/L Calcium 9.1 (8.4-10.2) mg/dL Total Bilirubin 0.9 (0.0-1.0) mg/dL AST 61 H (5-31) U/L ALT 20 (0-31) U/L Alkaline Phosphatase 96 (39-117) U/L Troponin I High Sens 9.6 D (<3.5-17.0) ng/L B-Natriuretic Peptide 57 (<100) pg/mL Total Protein 7.1 (6.5-8.0) g/dL Albumin 3.5 (3.5-5.0) g/dL Influenza Type A (PCR) NEGATIVE (Negative) Influenza Type B (PCR) NEGATIVE (Negative) RSV RNA Qual (PCR) NEGATIVE (Negative) SARS-CoV-2 RNA (RT-PCR) NEGATIVE (Negative) Independent Interpretation I performed an independent interpretation of an: Plain X-Ray Radiology Impression Discussion of test interpretation with radiology: I have reviewed the radiologist's reading. Independent Historian Clinical information obtained from an independent historian. History obtained from or confirmed by: EMS External Record Review External record reviewed: Inpatient record Chronic Conditions Patient?s care impacted by: Other (COPD) Critical Care Time Critical Care Time Critical Care Time: Yes Total Critical Care Time: 60 Attestation: severe hypoxia/IV solumedrol/alnuterol Discharge Plan Discharge Clinical Impression: Acute exacerbation of chronic obstructive pulmonary disease Patient Disposition: Admitted As Inpatient
[2024-09-08] MEDS: Albuterol Sulfate 5 MG, Albuterol/Iprat 2.5/0.5MG 3 ML 3 ML INHALE (10:05)
[2024-09-08] MEDS: methylPREDNISolone Sod Succ 125 MG/2 ML VIAL IVPUSH (10:16)
[2024-09-08 10:17] LABS: MANUAL DIFF FLAG NO
[2024-09-08 10:19] LABS: Basophils Absolute Auto 0.1 X10*3/uL (0.0-0.2); Basophils Percent Auto 0.4 % (0-2); Eosinophils Percent Auto 0.2 % (0-4); Hematocrit 36.4 % (37.0-47.0); Hemoglobin 11.6 g/dl (12.0-16.0); Imm Gran Abs Auto 0.04 X10*3/uL (0.00-0.03); Imm Gran Pct Auto 0.4 % (0.0-0.4); Lymphocytes Absolute Auto 0.5 X10*3/uL (1.2-4.9); Lymphocytes Percent Auto 4.5 % (20-40); Mean Corpuscular HGB Conc 31.9 g/dl (31.0-35.0); Mean Corpuscular Hemoglobin 30.1 pg (27.0-33.0); Mean Corpuscular Volume 94.3 fL (80.0-98.0); Mean Platelet Volume 10.4 fL (9.4-12.3); Monocytes Percent Auto 8.7 % (2-11); Neutrophils Absolute Auto 9.6 x10*3/uL (2.0-8.3); Neutrophils Percent Auto 85.8 % (45-73); Platelet Count 135 X10*3/uL (160-400); Red Blood Count 3.86 X10*6/uL (4.20-5.50); Red Cell Distribution Width 13.7 % (11.0-16.0); White Blood Count 11.2 X10*3/uL (4.8-10.8)
[2024-09-08 10:22] LABS: VBG Base Excess 15.3 mmol/L; VBG HCO3 43 mmol/L (22-26); VBG pCO2 66 mmHg; VBG pH 7.42 (7.32-7.43); VBG pO2 38 mmHg
[2024-09-08 10:23] LABS: Venous Blood Gas Refer to POC result
[2024-09-08 10:42] LABS: Alanine Aminotransferase 20 U/L (0-31); Albumin Level 3.5 g/dL (3.5-5.0); Alkaline Phosphatase 96 U/L (39-117); Anion Gap 13 (12-20); Aspartate Amino Transferase 61 U/L (5-31); Bilirubin Total 0.9 mg/dL (0.0-1.0); Blood Urea Nitrogen 22 mg/dL (9-16); Calcium 9.1 mg/dL (8.4-10.2); Carbon Dioxide 33 mmol/L (22-29); Chloride 95 mmol/L (96-108); Creatinine Clr Calc Pharmacy 59.8; Estimated Glomerular Filt Rate > 60; Glucose Random 153 mg/dL (60-115); Potassium 4.5 mmol/L (3.3-5.1); Sodium 136 mmol/L (135-145); Total Protein 7.1 g/dL (6.5-8.0)
[2024-09-08 10:45] LABS: Troponin-I High Sensitivity 9.6 ng/L (<3.5-17.0)
[2024-09-08 10:49] LABS: B Type Natriuretic Peptide 57 pg/mL (<100)
[2024-09-08] MEDS: Acetaminophen 325 MG TABLET 975 MG PO (10:56)
[2024-09-08 11:24] LABS: Influenza A PCR NEGATIVE (Negative); Influenza B PCR NEGATIVE (Negative); Resp Syncy Virus RNA Qual PCR NEGATIVE (Negative); SARS COV2 PCR INHOUSE NEGATIVE (Negative)
--- NOTE | 2024-09-08 12:00 | PC.NURSE ---
pt was sating at 88% on the 3l put on a oxymask at 4l
--- NOTE | 2024-09-08 12:30 | PC.NURSE ---
pt sating 86% on the oxymask on 4l bummped up to 6l and sating 92%
[2024-09-08] MEDS: Doxycycline Hyclate 100 MG in 0.9 % Sodium Chloride 250 ML 166.67 MG IV ×2 (13:40→21:20)
--- NOTE | 2024-09-08 13:44 | P.HPHOSP_ITS ---
History of Present Illness Date of Service: 09/08/24 Attending physician on admission: [facility] Chief Complaint: COPD This is a 68-year-old female hx of COPD on 2-3 L NC, HTN, depression, anxiety, neuropathy, peripheral vascular occlusive disease presents to the emergency department for fatigue, malaise, myalgias, productive cough since last night. She reports she was not feeling well yesterday and at night everything seemed to get worse. Last night she also experienced substernal nonradiating chest pain. She reports that this morning what prompted her to come in to get seen as she felt like she could not breathe on her home 2 L nasal cannula. She denies sick contacts, chills, nausea, vomiting, diarrhea, headache, vision changes Review of Systems 2 Review of Systems: Yes all other systems are reviewed and are negative [facility] Medical History (Updated 09/08/24 @ 15:50 by GRAHAM Cantrell) Acute and chronic respiratory failure with hypercapnia Sepsis Pneumonia Acute exacerbation of chronic obstructive pulmonary disease (COPD) Hypertension, essential Depression, major, recurrent O2 dependent COPD, severe Patient : No Family History Father No problems noted. Mother Stomach cancer Brother No problems noted. Brother No problems noted. Brother No problems noted. Brother No problems noted. Brother No problems noted. Brother No problems noted. Sister No problems noted. Sister No problems noted. Sister No problems noted. Sister No problems noted. Surgical History History of surgery Amputated toe Hx of cholecystectomy History of appendectomy Social History Household Members: Family Housing: House Do you presently have visiting nurse or other home services: No Alcohol intake: never Comment: refusing for staff to remain with patient in bathroom Patient Tobacco Use Status: Former Tobacco user Tobacco use type: Cigarette Cigarettes Per Day: 3 Smoked in Last 30 Days: No e-Cigarette/Vaping Use: Never Used Use of substances other than those prescribed or required for medical reasons: No Substance Use Type: Marijuana Advance Directives: No Advance Directives Information Provided: Yes Do you have a plan to hurt others: No Plan Nutrition Risks: No Nutritional Risk Patient : No service: No Current occupational status: retired and disabled Cognitive needs: No Hearing needs: No Vision needs: No Meds Allergies Allergy/AdvReac Type Severity Reaction Status Date / Time codeine Allergy Unknown hives Verified 09/08/24 09:54 NSAIDS (Non-Steroidal AdvReac Mild On blood Verified 09/08/24 09:54 Anti-Inflamma thinners Active Medications: Current Medications Doxycycline Hyclate 100 mg/ (Sodium Chloride) 250 mls @ 166.67 mls/hr IV ONCE ONE Stop: 09/08/24 14:31 Last Admin: 09/08/24 13:40 Dose: 166.67 mls/hr Home Medications ?Medication ?Instructions ?Recorded ?Confirmed ?Last Taken ?Type albuterol sulfate 2.5 mg/3 mL 2.5 mg inhalation QID PRN Wheezing 08/25/20 09/08/24 Unknown History (0.083 %) solution for nebulization fluticasone fur. 200 mcg-umeclid 1 ea inhalation DAILY 01/05/24 09/08/24 09/05/24 History 62.5 mcg-vilant 25 mcg inhalat.powder (Trelegy Ellipta) albuterol sulfate 90 mcg/actuation 2 puff inhalation Q6H PRN 06/16/24 09/08/24 Unknown History aerosol inhaler (Ventolin HFA) Shortness Of Breath Or Wheezing mirtazapine 15 mg tablet 15 mg PO BEDTIME 06/16/24 09/08/24 09/05/24 History olanzapine 5 mg tablet 5 mg PO BEDTIME 06/16/24 09/08/24 09/05/24 History roflumilast 500 mcg tablet 500 mcg PO DAILY 06/16/24 09/08/24 09/05/24 History clonazepam 0.5 mg tablet 0.25 mg PO BID PRN Anxiety 09/08/24 09/08/24 09/07/24 History Physical Exam 2 Vital Signs and Narrative: Vital Signs: Last Vital Signs Temp 100.8 F H 09/08/24 10:28 Pulse 97 09/08/24 10:06 Resp 22 H 09/08/24 10:06 BP 116/66 09/08/24 09:51 Pulse Ox 92 09/08/24 12:43 O2 Del Method Oxymask 09/08/24 12:43 O2 Flow Rate 6 09/08/24 12:43 Oxygen Flow Rate 4 09/08/24 09:51 BMI result Body Mass Index 19.4 Appearance: Alert.? Oriented X3.? No acute distress.? Head: Normocephalic, atraumatic, no step-offs or deformities Eyes: Pupils equal, round and reactive to light.? ENT: Pharynx normal.? Neck: Normal inspection.? Neck supple.? CVS: Normal heart rate and rhythm.? Pulses normal.? Respiratory: No respiratory distress.? Breath sounds mild expiratory wheezing bilaterally with bibasilar crackles.? Abdomen: Soft and nontender.? Skin: Skin warm and dry.? Normal skin color.? Normal skin turgor.? Extremities: No lower extremity edema.? No calf ttp. Global weakness Neuro: Oriented X 3.? No motor deficit.? No sensory deficit. CN 2-12 intact Results Labs 09/08/24 10:14 09/08/24 10:14 Labs: Laboratory Results - last 24 hr 09/08/24 09/08/24 09/08/24 10:14 10:16 10:39 MCV 94.3 MCH 30.1 MCHC 31.9 RDW 13.7 Plt Count 135 L MPV 10.4 Immature Gran % (Auto) 0.4 Neut % (Auto) 85.8 H Lymph % (Auto) 4.5 L [place] % (Auto) 8.7 Eos % (Auto) 0.2 Baso % (Auto) 0.4 Lymph # (Auto) 0.5 L [place] # (Auto) 1.0 Eos # (Auto) 0.0 Baso # (Auto) 0.1 Abs Immat Gran (auto) 0.04 H Absolute Neuts (auto) 9.6 H Absolute Nucleated RBC 0.000 Nucleated RBC % (auto) 0.0 VBG pH 7.42 VBG pCO2 66 VBG pO2 38 VBG HCO3 43 H VBG O2 Saturation 65.0 VBG Base Excess 15.3 Anion Gap 13 Estim Creat Clear Calc 59.8 Estimated GFR > 60 Random Glucose 153 H Lactic Acid 1.0 Calcium 9.1 Total Bilirubin 0.9 AST 61 H ALT 20 Alkaline Phosphatase 96 Troponin I High Sens 9.6 D B-Natriuretic Peptide 57 Total Protein 7.1 Albumin 3.5 Influenza Type A (PCR) NEGATIVE Influenza Type B (PCR) NEGATIVE RSV RNA Qual (PCR) NEGATIVE SARS-CoV-2 RNA (RT-PCR) NEGATIVE ECG Attestation: I personally reviewed and interpreted this ECG as follows: ECG interpretation date: 09/08/24 ECG interpretation time: 13:48 Prior ECG tracings: available for review Interpretation: Atrial fibrillation Nonspecific ST abnormality Abnormal ECG When compared with ECG of 24-Jul-2024 17:42, Atrial fibrillation has replaced Sinus rhythm Imaging Radiologist's Impressions: CXR 09/08 Impression: Severe chronic interstitial lung disease without focal infiltrate/consolidation. Presumed pseudonodule right upper lung. Attention directed for follow-up. Assessment and Plan (1) COPD exacerbation: Status: Acute (2) O2 dependent: Status: Acute (3) Hypertension: Status: Acute (4) Hypothyroidism: Status: Acute (5) Depression, major, recurrent: Qualifiers: Active/Remission status: in partial remission Qualified Code(s): F33.41 - Major depressive disorder, recurrent, in partial remission Status: Acute (6) Anxiety: Status: Acute (7) Peripheral vascular occlusive disease: Status: Acute Plan 68-year-old female presented to the emergency department for cough, fatigue, malaise, shortness of breath and chest pain. Chest pain no longer present was only present last night. Her CBC showing leukocytosis with left shift, chemistry with hypercarbia likely secondary to COPD/chronic lung disease. Mild elevation in BUN likely secondary to poor p.o. intake/dehydration. Patient tolerating p.o. fluids. Troponin negative and nonischemic EKG 2nd troponin pending. Remainder of chemistry unremarkable. VBG with a pH of 7.42 and elevated bicarbonate of 43 likely secondary to chronic lung disease. Flu, COVID, RSV negative. Initially patient was placed on 3 L nasal cannula and she was saturating 88% she was then transitioned to an OxyMask at 5 L in his saturating 97%. Chest x-ray was obtained and it showed severe chronic interstitial lung disease without focal infiltrate or consolidation. Flu, COVID, RSV negative however extended respiratory panel ordered at this time. In the emergency department she received doxycycline 100 mg IV, Solu-Medrol 125 mg and she received Tylenol 975 mg for fever. She was febrile at 100.8 however no longer febrile. Plan is for admission to telemetry. #Acute on chronic hypercapnic respiratory failure #COPD - Continue home 2L - Acute respiratory failure likely secondary to COPD - [facility] [place] respiratory panel ordered to further investigate viral illness - Duonebs Q4H PRN -Solumedrol 40 mg IV BID - Doxycycline 100 mg IV BID X 5 days -Roflumilast 500 mcg daily -Trelegy Ellipta 200-65.2-25 mcg inhalation x 1 daily #HTN -Lisinopril 10 mg tablet daily #Hypothyroidism -125 mcg po daily #Depression #Anxiety - Sertraline 100 mcg daily - Olanzapine 5mg bedtime - Clonazepam 0.25 mg TID #Insomnia -Mirtazapine 15 mg bedtime #Peripheral vascular occlusive disease -Clopidogrel 75 mg daily #On chronic suboxone - Buprenorphine-naloxone 8-2 mg 1.5 film daily Code status: Full code DVTP: SCD Quality Stroke Does the patient have a stroke diagnosis?: No VTE Prior VTE?: No VTE Risk Level:: Medical - moderate - high VTE Device Contraindication: N/A - Device Ordered VTE Drug Contraindication: Treatment Not Indicated
[2024-09-08 15:00] LABS: Adenovirus PCR Not Detected (Not Detect.); Bordetella parapertussis PCR Not Detected (Not Detect.); Bordetella pertussis PCR Not Detected (Not Detect.); Chlamydia pneumoniae PCR Not Detected (Not Detect.); Coronavirus 229E PCR Not Detected (Not Detect.); Coronavirus HKU1 PCR Not Detected (Not Detect.); Coronavirus NL63 PCR Not Detected (Not Detect.); Coronavirus OC43 PCR Not Detected (Not Detect.); Human metapneumovirus PCR Not Detected (Not Detect.); Influenza A PCR Not Detected (Not Detect.); Influenza B PCR Not Detected (Not Detect.); Mycoplasma pneumoniae PCR Not Detected (Not Detect.); Parainfluenza 1 PCR Not Detected (Not Detect.); Parainfluenza 2 PCR Not Detected (Not Detect.); Parainfluenza 3 PCR Not Detected (Not Detect.); Parainfluenza 4 PCR Not Detected (Not Detect.); RSV PCR Not Detected (Not Detect.); Rhino/Enterovirus PCR Not Detected (Not Detect.)
[2024-09-08 15:04] LABS: SARS-CoV-2 PCR Not Detected (Not Detect.)
[2024-09-08 15:13] LABS: B Type Natriuretic Peptide 52 pg/mL (<100)
[2024-09-08 15:14] LABS: Troponin-I High Sensitivity 7.1 ng/L (<3.5-17.0)
--- NOTE | 2024-09-08 15:14 | PHA.MEDREC ---
Pharmacy Consult ? Medication Reconciliation Pharmacy has completed the medication reconciliation. Spoke to pt to confirm meds.
--- NOTE | 2024-09-08 15:20 | PC.NURSE ---
Had extensive conversation w/ niece Vidhi regarding patient, Vidhi feels like patient has been acting more odd since her daughter ~ 2 weeks ago. Patient has not given an urine sample yet, drug screen added. Vidhi's number is [phone] available for phone call if/when necessary.
[2024-09-08 20:11] LABS: Appearance Urine Clear; Color Urine Dark Yellow; Glucose Urine UA Negative (Negative); Leukocyte Esterase Urine Small (1+) (Negative); Nitrite Urine Negative (Negative); PH 5.5 (5.0-9.0); UMIC TRIGGER UACC YES; Urine Blood Trace (Negative); Urine Ketones Negative (Negative); Urine Protein Trace mg/dL (Neg-Trace)
--- NOTE | 2024-09-08 20:20 | PC.NURSE ---
Addendum entered by Mónica Valle RN 09/08/24 20:45: Read by provider, no reply, no order, forwarded to Dr. Galvan Original Note: Patient requesting her PRN Klonopin & Suboxone, covering provider Lennox Dickinson messaged via [employer], awaiting orders. Primary RN Fany aware.
[2024-09-08 20:21] LABS: Amphetamine Screen Urine Not Detected (Not Detect); Barbiturates, Urine Not Detected (Not Detect); Benzodiazepines Screen Urine POSITIVE (Not Detect); Buprenorphine Scr Positive (Not Detect); Cannabinoid Screen Urine Not Detected (Not Detect); Cocaine Screen Urine Not Detected (Not Detect); Fentanyl, urine Not Detected (Not Detect); Methadone Screen, Urine Not Detected (Not Detect); Opiate Screen Urine Not Detected (Not Detect); Oxycodone Screen Urine Not Detected (Not Detect); Phencyclidine Screen Urine Not Detected (Not Detect)
[2024-09-08 20:32] LABS: Bacteria Urine None Seen (None Seen); RBC Urine 0-2 /HPF (0-2); UACC Culture Trigger YES; WBC Urine 0-5 /HPF (0-5)
[2024-09-08] MEDS: Mirtazapine 15 MG TABLET PO (21:19)
[2024-09-08] MEDS: OLANZapine 5 MG TABLET PO (21:19)
[2024-09-08] MEDS: clonazePAM 0.5 MG TABLET 0.25 MG PO (21:19)
[2024-09-08] MEDS: Buprenorphine/Naloxone 8/2 mg FILM 1.5 FILM SUBLINGUAL (21:20)
[2024-09-08] MEDS: 0.9 % Sodium Chloride Flush 3 ML SYRINGE IVFLUSH (23:10)
[2024-09-09] VITALS (10 sets, daily range): BP systolic 98–158; BP diastolic 48–80; PULSE 60–80; RESP 12–18; TEMP 36.1–37; O2SAT 84–99; BMI 19.1
[2024-09-09 00:37] LABS: TSH reflex Free T4 0.38 uIU/mL (0.32-4.0)
[2024-09-09] MEDS: Levothyroxine Sodium 125 MCG TABLET PO (05:04)
[2024-09-09 06:36] LABS: MANUAL DIFF FLAG NO
[2024-09-09 07:01] LABS: Basophils Percent Auto 0.3 % (0-2); Hemoglobin 10.2 g/dl (12.0-16.0); Imm Gran Abs Auto 0.04 X10*3/uL (0.00-0.03); Imm Gran Pct Auto 0.6 % (0.0-0.4); Lymphocytes Absolute Auto 0.5 X10*3/uL (1.2-4.9); Lymphocytes Percent Auto 6.7 % (20-40); Mean Corpuscular HGB Conc 31.9 g/dl (31.0-35.0); Mean Corpuscular Hemoglobin 30.1 pg (27.0-33.0); Mean Corpuscular Volume 94.4 fL (80.0-98.0); Mean Platelet Volume 10.8 fL (9.4-12.3); Monocytes Absolute Auto 0.7 X10*3/uL (0.1-1.2); Monocytes Percent Auto 9.5 % (2-11); Neutrophils Absolute Auto 5.8 x10*3/uL (2.0-8.3); Neutrophils Percent Auto 82.9 % (45-73); Platelet Count 124 X10*3/uL (160-400); Red Blood Count 3.39 X10*6/uL (4.20-5.50); Red Cell Distribution Width 13.7 % (11.0-16.0)
[2024-09-09 07:16] LABS: Alanine Aminotransferase 14 U/L (0-31); Albumin Level 3.2 g/dL (3.5-5.0); Alkaline Phosphatase 81 U/L (39-117); Anion Gap 9 (12-20); Aspartate Amino Transferase 35 U/L (5-31); Bilirubin Total 0.3 mg/dL (0.0-1.0); Blood Urea Nitrogen 31 mg/dL (9-16); Carbon Dioxide 34 mmol/L (22-29); Chloride 99 mmol/L (96-108); Creatinine Clr Calc Pharmacy 56.3; Estimated Glomerular Filt Rate > 60; Glucose Random 106 mg/dL (60-115); Potassium 4.5 mmol/L (3.3-5.1); Sodium 137 mmol/L (135-145); Total Protein 6.3 g/dL (6.5-8.0)
[2024-09-09] MEDS: Doxycycline Hyclate 100 MG in 0.9 % Sodium Chloride 250 ML 166.67 MG IV ×2 (08:21→20:59)
[2024-09-09] MEDS: Buprenorphine/Naloxone 8/2 mg FILM 1.5 FILM SUBLINGUAL (08:23)
[2024-09-09] MEDS: Sertraline HCL 100 MG TABLET PO (08:23)
[2024-09-09] MEDS: lisinopriL 10 MG TABLET PO (08:23)
[2024-09-09] MEDS: Roflumilast 500 MCG TABLET PO (08:23)
[2024-09-09] MEDS: Clopidogrel Bisulfate 75 MG TABLET PO (08:23)
[2024-09-09] MEDS: predniSONE 20 MG TABLET 40 MG PO (08:23)
[2024-09-09] MEDS: Benzonatate 100 MG CAPSULE PO ×2 (08:28→20:59)
[2024-09-09] MEDS: clonazePAM 0.5 MG TABLET 0.25 MG PO ×3 (08:28→21:00)
[2024-09-09] MEDS: 0.9 % Sodium Chloride Flush 3 ML SYRINGE IVFLUSH ×2 (08:34→21:00)
--- NOTE | 2024-09-09 08:52 | MHC.CM.PN ---
Addendum entered by Raegan Perry RN 09/09/24 10:45: PER HOSPITALIST PT NOW ASKING FOR STR, P.T. EVAL ORDERED. Original Note: IMM 09/09/24, PT W/RESP FAILURE D/T COPD EXAC, CM MET W/PT. PT LIVES W/DTR AND NIRAV, HAS A NEBULIZER AND HOME O2 W/[place], NO HOME SERVICES AT THIS TIME, PT REPORTS SHE IS THINKING ABOUT CHANGING HER HCP AND IS THINKING ABOUT WHO SHE WOULD CHANGE TO, CM ENCOURAGE PT TO ASK FOR CM ONCE SHE HAS DECIDED. PCP/HCP ON FILE VERIFIED. INTERVIEW BRIEF D/T PT HAVING SOB/COUGHING
[2024-09-09] MEDS: Albuterol/Iprat 2.5/0.5MG 3 ML AMPUL.NEB INHALE ×3 (11:22→19:50)
[2024-09-09] MEDS: 0.9 % Sodium Chloride 1,000 ML 100 ML IVCONT (11:49)
--- NOTE | 2024-09-09 14:44 | HO.PM.IMPN ---
Subjective Subjective Date of Service: 09/09/24 Interval History: c/o dyspnea + wheezing though improving c/o cough with yellow sputum Review of Systems Review of Systems: Yes all other systems are reviewed and are negative Physical Exam Vital Signs: Vital Signs: Last Vital Signs Temp 98.3 F 09/09/24 11:03 Pulse 60 09/09/24 11:03 Resp 14 09/09/24 11:03 BP 98/48 L 09/09/24 11:12 Pulse Ox 84 L 09/09/24 14:09 O2 Del Method Nasal Cannula 09/09/24 11:03 O2 Flow Rate 2 09/09/24 11:03 Oxygen Flow Rate 4 09/08/24 09:51 BMI result Body Mass Index 19.1 Gen: in no acute distress HEENT: sclera anicteric, moist mucus membranes Neck: supple Lungs: bilateral expiratory wheezing Heart: regular rate and rhythm, no murmurs Abd: soft, non-tender, non-distended Ext: no edema Skin: warm/well-perfused Neuro: alert and oriented x3, no focal findings Psych: appropriate affect Objective Data Active Medications Acetaminophen (Acetaminophen 325 Mg Tablet) 650 mg PO Q6H PRN PRN Reason: Pain, Mild 1-3,fever,headache Albuterol/Ipratropium (Albuterol/Iprat 2.5/0.5mg 3 Ml Ampul.Neb) 3 ml INHALE RQ4H WHILE AWAKE [facility] Last Admin: 09/09/24 11:22 Dose: 3 ml Documented By: JOSE CARLOS Albuterol/Ipratropium (Albuterol/Iprat 2.5/0.5mg 3 Ml Ampul.Neb) 3 ml INHALE Q2H PRN PRN Reason: Shortness of Breath Benzonatate (Benzonatate 100 Mg Capsule) 100 mg PO TID PRN PRN Reason: Cough Last Admin: 09/09/24 08:28 Dose: 100 mg Documented By: ARABELLA Buprenorphine/Naloxone (Buprenorphine/Naloxone 8/2 Mg Film) 1.5 film SUBLINGUAL DAILY [facility] Last Admin: 09/09/24 08:23 Dose: 1.5 film Documented By: ARABELLA Calcium Carbonate (Calcium Carbonate 750 Mg Tab.Chew) 750 mg PO Q4H PRN PRN Reason: Heartburn Clonazepam (Clonazepam 0.5 Mg Tablet) 0.25 mg PO BID PRN PRN Reason: Anxiety Last Admin: 09/09/24 08:28 Dose: 0.25 mg Documented By: ARABELLA Clopidogrel Bisulfate (Clopidogrel Bisulfate 75 Mg Tablet) 75 mg PO DAILY [facility] Last Admin: 09/09/24 08:23 Dose: 75 mg Documented By: ARABELLA Fluticasone/Umeclidinium/Vilanterol (Fluticasone/Umeclidinium/Vilanterol 200/62.5/25 Blst.W.Dev) 1 puff INHALE RDAILY [facility] Last Admin: 09/09/24 07:44 Dose: Not Given Documented By: JOSE CARLOS Non-Admin Reason: no med pharm contacted Doxycycline Hyclate 100 mg/ (Sodium Chloride) 250 mls @ 166.67 mls/hr IV BID [facility] Last Infusion: 09/09/24 11:17 Dose: Infused Documented By: ARABELLA Sodium Chloride (Ns) 1,000 mls @ 100 mls/hr IVCONT .Q10H [facility] Stop: 09/09/24 21:29 Last Admin: 09/09/24 11:49 Dose: 100 mls/hr Documented By: ARABELLA Levothyroxine Sodium (Levothyroxine Sodium 125 Mcg Tablet) 125 mcg PO DAILY@0600 [facility] Last Admin: 09/09/24 05:04 Dose: 125 mcg Documented By: STACY Lisinopril (Lisinopril 10 Mg Tablet) 10 mg PO DAILY [facility]; Protocol Last Admin: 09/09/24 08:23 Dose: 10 mg Documented By: ARABELLA Magnesium Hydroxide (Milk Of Magnesia 30 Ml Oral.Susp) 30 ml PO DAILY PRN PRN Reason: Constipation Meclizine HCl (Meclizine Hcl 25 Mg Tablet) 25 mg PO Q8H PRN PRN Reason: dizziness Melatonin (Melatonin 3 Mg Tablet) 6 mg PO BEDTIME PRN PRN Reason: Insomnia Methylprednisolone Sodium Succinate (Methylprednisolone Sod Succ 40 Mg/Ml Vial) 40 mg IVPUSH Q12H [facility] Mirtazapine (Mirtazapine 15 Mg Tablet) 15 mg PO BEDTIME [facility] Last Admin: 09/08/24 21:19 Dose: 15 mg Documented By: REBECCA Olanzapine (Olanzapine 5 Mg Tablet) 5 mg PO BEDTIME [facility] Last Admin: 09/08/24 21:19 Dose: 5 mg Documented By: REBECCA Roflumilast (Roflumilast 500 Mcg Tablet) 500 mcg PO DAILY [facility] Last Admin: 09/09/24 08:23 Dose: 500 mcg Documented By: ARABELLA Sertraline HCl (Sertraline Hcl 100 Mg Tablet) 100 mg PO DAILY [facility] Last Admin: 09/09/24 08:23 Dose: 100 mg Documented By: ARABELLA Sodium Chloride (0.9 % Sodium Chloride Flush 3 Ml Syringe) 3 ml IVFLUSH QSHIFT [facility] Last Admin: 09/09/24 08:34 Dose: 3 ml Documented By: ARABELLA Labs 09/09/24 06:25 09/09/24 06:25 Labs: Laboratory Results - last 24 hr 09/08/24 09/08/24 09/08/24 10:14 13:57 14:41 MCV MCH MCHC RDW Plt Count MPV Immature Gran % (Auto) Neut % (Auto) Lymph % (Auto) [place] % (Auto) Eos % (Auto) Baso % (Auto) Lymph # (Auto) [place] # (Auto) Eos # (Auto) Baso # (Auto) Abs Immat Gran (auto) Absolute Neuts (auto) Absolute Nucleated RBC Nucleated RBC % (auto) Anion Gap Estim Creat Clear Calc Estimated GFR Random Glucose Calcium Total Bilirubin AST ALT Alkaline Phosphatase Troponin I High Sens 7.1 B-Natriuretic Peptide 52 Total Protein Albumin TSH 0.38 Urine Color Urine Appearance Urine pH Ur Specific [place] Urine Protein Urine Glucose (UA) Urine Ketones Urine Blood Urine Nitrite Ur Leukocyte Esterase Urine RBC Urine WBC Ur Squamous Epith Cells Urine Bacteria Hyaline Casts Urine Opiates Screen Ur Buprenorphine Scrn Ur Oxycodone Screen Urine Methadone Screen Urine Fentanyl Screen Ur Barbiturates Screen Ur Phencyclidine Scrn Ur Amphetamines Screen U Benzodiazepines Scrn Urine Cocaine Screen U Marijuana (THC) Screen Respiratory Panel [place] See Note Adenovirus (Rapid PCR) Not Detected B.pert (TEM-PCR) Not Detected B.parapertussis DNA PCR Not Detected C. pneumoniae DNA (PCR) Not Detected Coronavirus OC43 (PCR) Not Detected Coronavirus HKU1 (PCR) Not Detected Coronavirus 229E (PCR) Not Detected Coronavirus NL63 (PCR) Not Detected Human Metapneumovir PCR Not Detected Influenza A (RT-PCR) Not Detected Influenza B (RT-PCR) Not Detected M. pneumoniae (PCR) Not Detected Parainfluenza 1 (PCR) Not Detected Parainfluenza 2 (PCR) Not Detected Parainfluenza 3 (PCR) Not Detected Parainfluenza 4 (PCR) Not Detected RSV (PCR) Not Detected Entero/Rhino (PCR) Not Detected SARS-CoV-2 RNA (RT-PCR) Not Detected 09/08/24 09/09/24 20:05 06:25 MCV 94.4 MCH 30.1 MCHC 31.9 RDW 13.7 Plt Count 124 L MPV 10.8 Immature Gran % (Auto) 0.6 H Neut % (Auto) 82.9 H Lymph % (Auto) 6.7 L [place] % (Auto) 9.5 Eos % (Auto) 0.0 Baso % (Auto) 0.3 Lymph # (Auto) 0.5 L [place] # (Auto) 0.7 Eos # (Auto) 0.0 Baso # (Auto) 0.0 Abs Immat Gran (auto) 0.04 H Absolute Neuts (auto) 5.8 Absolute Nucleated RBC 0.000 Nucleated RBC % (auto) 0.0 Anion Gap 9 L Estim Creat Clear Calc 56.3 Estimated GFR > 60 Random Glucose 106 Calcium 9.0 Total Bilirubin 0.3 AST 35 H ALT 14 Alkaline Phosphatase 81 Troponin I High Sens B-Natriuretic Peptide Total Protein 6.3 L Albumin 3.2 L TSH Urine Color Dark Yellow Urine Appearance Clear Urine pH 5.5 Ur Specific [place] 1.020 Urine Protein Trace Urine Glucose (UA) Negative Urine Ketones Negative Urine Blood Trace H Urine Nitrite Negative Ur Leukocyte Esterase Small (1+) H Urine RBC 0-2 Urine WBC 0-5 Ur Squamous Epith Cells 3-5 Urine Bacteria None Seen Hyaline Casts 6-10 Urine Opiates Screen Not Detected Ur Buprenorphine Scrn Positive H Ur Oxycodone Screen Not Detected Urine Methadone Screen Not Detected Urine Fentanyl Screen Not Detected Ur Barbiturates Screen Not Detected Ur Phencyclidine Scrn Not Detected Ur Amphetamines Screen Not Detected U Benzodiazepines Scrn POSITIVE H Urine Cocaine Screen Not Detected U Marijuana (THC) Screen Not Detected Respiratory Panel [place] Adenovirus (Rapid PCR) B.pert (TEM-PCR) B.parapertussis DNA PCR C. pneumoniae DNA (PCR) Coronavirus OC43 (PCR) Coronavirus HKU1 (PCR) Coronavirus 229E (PCR) Coronavirus NL63 (PCR) Human Metapneumovir PCR Influenza A (RT-PCR) Influenza B (RT-PCR) M. pneumoniae (PCR) Parainfluenza 1 (PCR) Parainfluenza 2 (PCR) Parainfluenza 3 (PCR) Parainfluenza 4 (PCR) RSV (PCR) Entero/Rhino (PCR) SARS-CoV-2 RNA (RT-PCR) Microbiology Microbiology Results: Microbiology 09/08/24 10:39 Blood Culture - Preliminary Blood - Venous No growth after 24 hours. 09/08/24 10:39 Blood Culture - Preliminary Blood - Venous No growth after 24 hours. 09/08/24 20:05 Urine Culture - Preliminary Urine clean catch - Clean Catch Midstream Culture too young to evaluate. Assessment and Plan (1) Acute exacerbation of chronic obstructive pulmonary disease: Status: Acute Plan d2 for 68yo F with COPD on home O2 2L preseneting with dyspnea, cough, chest pain, and malaise; admitted for hypoxia due to COPD exacerbation acute/chronic hypoxic/hypercarbic respiratory failure - continue IV methylprednisolone + standing/prn nebs, continue roflumilast + Trelegy, doxycycline 09/08- - wean O2 as tolerated, goal O2 88-92% HTN - continue lisinopril hypothyroidism - continue LT4 mood disorder - continue sertraline, olanzapine, clonazepam, mirtazapam PVD - continue clopidogrel OUD - continue Suboxone VTE ppx - enoxaparin dispo - TBD In my clinical judgment, the patient requires continued inpatient hospitalization for the following reasons: COPD, hypoxia Total time managing care of this patient today: 45 minutes. Quality Stroke Does the patient have a stroke diagnosis?: No VTE Prior VTE?: No VTE Risk Level:: Medical - moderate - high VTE Device Contraindication: N/A - Device Ordered VTE Drug Contraindication: Treatment Not Indicated
[2024-09-09] MEDS: Fluticasone/Umeclidinium/Vilanterol 200/62.5/25 BLST.W.DEV 1 PUFF INHALE (14:46)
[2024-09-09] MEDS: methylPREDNISolone Sod Succ 40 MG/ML VIAL IVPUSH (20:58)
[2024-09-09] MEDS: Mirtazapine 15 MG TABLET PO (20:59)
[2024-09-09] MEDS: OLANZapine 5 MG TABLET PO (20:59)
[2024-09-10] VITALS (12 sets, daily range): BP systolic 120–152; BP diastolic 60–79; PULSE 74–89; RESP 10–18; TEMP 35.4–36.9; O2SAT 91–100
[2024-09-10] MEDS: Levothyroxine Sodium 125 MCG TABLET PO (06:26)
[2024-09-10] MEDS: Fluticasone/Umeclidinium/Vilanterol 200/62.5/25 BLST.W.DEV 1 PUFF INHALE (07:32)
[2024-09-10] MEDS: Albuterol/Iprat 2.5/0.5MG 3 ML AMPUL.NEB INHALE ×4 (07:32→20:05)
[2024-09-10] MEDS: Buprenorphine/Naloxone 8/2 mg FILM 1.5 FILM SUBLINGUAL (08:45)
[2024-09-10] MEDS: lisinopriL 10 MG TABLET PO (08:45)
[2024-09-10] MEDS: Roflumilast 500 MCG TABLET PO (08:45)
[2024-09-10] MEDS: Sertraline HCL 100 MG TABLET PO (08:45)
[2024-09-10] MEDS: Clopidogrel Bisulfate 75 MG TABLET PO (08:45)
[2024-09-10] MEDS: methylPREDNISolone Sod Succ 40 MG/ML VIAL IVPUSH ×2 (08:45→20:18)
[2024-09-10] MEDS: Doxycycline Hyclate 100 MG in 0.9 % Sodium Chloride 250 ML 166.67 MG IV ×2 (08:45→20:18)
[2024-09-10] MEDS: 0.9 % Sodium Chloride Flush 3 ML SYRINGE IVFLUSH ×3 (08:46→20:19)
[2024-09-10] MEDS: clonazePAM 0.5 MG TABLET 0.25 MG PO ×3 (08:48→20:18)
[2024-09-10 08:50] LABS: MANUAL DIFF FLAG NO
[2024-09-10 08:53] LABS: Basophils Percent Auto 0.2 % (0-2); Hematocrit 36.8 % (37.0-47.0); Hemoglobin 11.4 g/dl (12.0-16.0); Imm Gran Abs Auto 0.02 X10*3/uL (0.00-0.03); Imm Gran Pct Auto 0.4 % (0.0-0.4); Lymphocytes Absolute Auto 0.3 X10*3/uL (1.2-4.9); Lymphocytes Percent Auto 6.3 % (20-40); Mean Corpuscular Hemoglobin 30.2 pg (27.0-33.0); Mean Corpuscular Volume 97.6 fL (80.0-98.0); Mean Platelet Volume 10.6 fL (9.4-12.3); Monocytes Absolute Auto 0.3 X10*3/uL (0.1-1.2); Monocytes Percent Auto 4.8 % (2-11); Neutrophils Absolute Auto 4.7 x10*3/uL (2.0-8.3); Neutrophils Percent Auto 88.3 % (45-73); Platelet Count 127 X10*3/uL (160-400); Red Blood Count 3.77 X10*6/uL (4.20-5.50); White Blood Count 5.3 X10*3/uL (4.8-10.8)
[2024-09-10 08:55] LABS: Venous Blood Gas Refer to POC result
[2024-09-10 08:56] LABS: VBG Base Excess 11.7 mmol/L; VBG HCO3 39 mmol/L (22-26); VBG pCO2 67 mmHg; VBG pH 7.37 (7.32-7.43); VBG pO2 31 mmHg
[2024-09-10 09:13] LABS: Anion Gap 12 (12-20); Blood Urea Nitrogen 33 mg/dL (9-16); Calcium 9.2 mg/dL (8.4-10.2); Carbon Dioxide 32 mmol/L (22-29); Chloride 102 mmol/L (96-108); Creatinine Clr Calc Pharmacy 60.4; Estimated Glomerular Filt Rate > 60; Glucose Random 115 mg/dL (60-115); Sodium 142 mmol/L (135-145)
[2024-09-10 09:48] LABS: Procalcitonin 0.99 ng/mL
--- NOTE | 2024-09-10 13:14 | P.PNIM_ITS ---
Subjective Subjective Date of Service: 09/10/24 Interval History: was on 6L O2 this AM, weaned to 2L wheezing still but improved Review of Systems Review of Systems: Yes all other systems are reviewed and are negative Physical Exam 2 Vital Signs: Vital Signs: Last Vital Signs Temp 97.0 F 09/10/24 11:48 Pulse 74 09/10/24 11:48 Resp 12 09/10/24 11:48 BP 120/63 09/10/24 11:48 Pulse Ox 93 09/10/24 11:48 O2 Del Method Nasal Cannula 09/10/24 11:48 O2 Flow Rate 2 09/10/24 11:48 Oxygen Flow Rate 4 09/08/24 09:51 BMI result Body Mass Index 19.1 Gen: in no acute distress HEENT: sclera anicteric, moist mucus membranes Neck: supple Lungs: bilateral expiratory wheezing Heart: regular rate and rhythm, no murmurs Abd: soft, non-tender, non-distended Ext: no edema Skin: warm/well-perfused Neuro: alert and oriented x3, no focal findings Psych: appropriate affect Objective Data Active Medications Acetaminophen (Acetaminophen 325 Mg Tablet) 650 mg PO Q6H PRN PRN Reason: Pain, Mild 1-3,fever,headache Albuterol/Ipratropium (Albuterol/Iprat 2.5/0.5mg 3 Ml Ampul.Neb) 3 ml INHALE RQ4H WHILE AWAKE [facility] Last Admin: 09/10/24 11:11 Dose: 3 ml Documented By: GUSTABO Albuterol/Ipratropium (Albuterol/Iprat 2.5/0.5mg 3 Ml Ampul.Neb) 3 ml INHALE Q2H PRN PRN Reason: Shortness of Breath Benzonatate (Benzonatate 100 Mg Capsule) 100 mg PO TID PRN PRN Reason: Cough Last Admin: 09/09/24 20:59 Dose: 100 mg Documented By: RADHA Buprenorphine/Naloxone (Buprenorphine/Naloxone 8/2 Mg Film) 1.5 film SUBLINGUAL DAILY [facility] Last Admin: 09/10/24 08:45 Dose: 1.5 film Documented By: YOSELIN Calcium Carbonate (Calcium Carbonate 750 Mg Tab.Chew) 750 mg PO Q4H PRN PRN Reason: Heartburn Clonazepam (Clonazepam 0.5 Mg Tablet) 0.25 mg PO TID PRN PRN Reason: Anxiety Last Admin: 09/10/24 08:48 Dose: 0.25 mg Documented By: YOSELIN Clopidogrel Bisulfate (Clopidogrel Bisulfate 75 Mg Tablet) 75 mg PO DAILY [facility] Last Admin: 09/10/24 08:45 Dose: 75 mg Documented By: YOSELIN Fluticasone/Umeclidinium/Vilanterol (Fluticasone/Umeclidinium/Vilanterol 200/62.5 Blst.W.Dev) 1 puff INHALE RDAILY [facility] Last Admin: 09/10/24 07:32 Dose: 1 puff Documented By: GUSTABO Doxycycline Hyclate 100 mg/ (Sodium Chloride) 250 mls @ 166.67 mls/hr IV BID [facility] Last Infusion: 09/10/24 10:22 Dose: Infused Documented By: YOSELIN Levothyroxine Sodium (Levothyroxine Sodium 125 Mcg Tablet) 125 mcg PO DAILY@0600 [facility] Last Admin: 09/10/24 06:26 Dose: 125 mcg Documented By: RADHA Lisinopril (Lisinopril 10 Mg Tablet) 10 mg PO DAILY [facility]; Protocol Last Admin: 09/10/24 08:45 Dose: 10 mg Documented By: YOSELIN Magnesium Hydroxide (Milk Of Magnesia 30 Ml Oral.Susp) 30 ml PO DAILY PRN PRN Reason: Constipation Meclizine HCl (Meclizine Hcl 25 Mg Tablet) 25 mg PO Q8H PRN PRN Reason: dizziness Melatonin (Melatonin 3 Mg Tablet) 6 mg PO BEDTIME PRN PRN Reason: Insomnia Methylprednisolone Sodium Succinate (Methylprednisolone Sod Succ 40 Mg/Ml Vial) 40 mg IVPUSH Q12H [facility] Last Admin: 09/10/24 08:45 Dose: 40 mg Documented By: YOSELIN Mirtazapine (Mirtazapine 15 Mg Tablet) 15 mg PO BEDTIME [facility] Last Admin: 09/09/24 20:59 Dose: 15 mg Documented By: RADHA Olanzapine (Olanzapine 5 Mg Tablet) 5 mg PO BEDTIME [facility] Last Admin: 09/09/24 20:59 Dose: 5 mg Documented By: RADHA Roflumilast (Roflumilast 500 Mcg Tablet) 500 mcg PO DAILY [facility] Last Admin: 09/10/24 08:45 Dose: 500 mcg Documented By: YOSELIN Sertraline HCl (Sertraline Hcl 100 Mg Tablet) 100 mg PO DAILY [facility] Last Admin: 09/10/24 08:45 Dose: 100 mg Documented By: YOSELIN Sodium Chloride (0.9 % Sodium Chloride Flush 3 Ml Syringe) 3 ml IVFLUSH QSHIFT [facility] Last Admin: 09/10/24 08:46 Dose: 3 ml Documented By: YOSELIN Labs 09/10/24 08:45 09/10/24 08:45 Labs: Laboratory Results - last 24 hr 09/10/24 09/10/24 08:45 08:51 MCV 97.6 MCH 30.2 MCHC 31.0 RDW 14.0 Plt Count 127 L MPV 10.6 Immature Gran % (Auto) 0.4 Neut % (Auto) 88.3 H Lymph % (Auto) 6.3 L [place] % (Auto) 4.8 Eos % (Auto) 0.0 Baso % (Auto) 0.2 Lymph # (Auto) 0.3 L [place] # (Auto) 0.3 Eos # (Auto) 0.0 Baso # (Auto) 0.0 Abs Immat Gran (auto) 0.02 Absolute Neuts (auto) 4.7 Absolute Nucleated RBC 0.000 Nucleated RBC % (auto) 0.0 VBG pH 7.37 VBG pCO2 67 VBG pO2 31 VBG HCO3 39 H VBG O2 Saturation 48.0 VBG Base Excess 11.7 Anion Gap 12 Estim Creat Clear Calc 60.4 Estimated GFR > 60 Random Glucose 115 Calcium 9.2 Procalcitonin 0.99 Microbiology Microbiology Results: Microbiology 09/08/24 10:39 Blood Culture - Preliminary Blood - Venous No growth after 48 hours. 09/08/24 10:39 Blood Culture - Preliminary Blood - Venous No growth after 48 hours. 09/08/24 20:05 Urine Culture - Final Urine clean catch - Clean Catch Midstream Assessment and Plan (1) Acute exacerbation of chronic obstructive pulmonary disease: Status: Acute Plan d3 for 68yo F with COPD on home O2 2L presenting with dyspnea, cough, chest pain, and malaise; admitted for hypoxia due to COPD exacerbation acute/chronic hypoxic/hypercarbic respiratory failure - continue IV methylprednisolone + standing/prn nebs, continue roflumilast + Trelegy, doxycycline 09/08- - PCT high at 0.99, will check CXR 2V and add coverage for presumed PNA with ceftriaxone 09/10-. BCx negative - wean O2 as tolerated, goal O2 88-92%; currently at home level 2L but was at 6L this AM HTN - continue lisinopril hypothyroidism - continue LT4 mood disorder - continue sertraline, olanzapine, clonazepam, mirtazapine PVD - continue clopidogrel OUD - continue Suboxone VTE ppx - enoxaparin dispo - IPR/STR In my clinical judgment, the patient requires continued inpatient hospitalization for the following reasons: COPD, IV ABX Total time managing care of this patient today: 45 minutes. Quality Stroke Does the patient have a stroke diagnosis?: No VTE Prior VTE?: No VTE Risk Level:: Medical - moderate - high VTE Device Contraindication: N/A - Device Ordered VTE Drug Contraindication: Treatment Not Indicated
[2024-09-10] MEDS: cefTRIAXone sodium 1 GM VIAL IVPUSH (13:33)
[2024-09-10] MEDS: Benzonatate 100 MG CAPSULE PO (20:18)
[2024-09-10] MEDS: Mirtazapine 15 MG TABLET PO (20:18)
[2024-09-10] MEDS: OLANZapine 5 MG TABLET PO (20:18)
[2024-09-11] VITALS (11 sets, daily range): BP systolic 142–163; BP diastolic 71–81; PULSE 67–88; RESP 18–20; TEMP 36.3–37.3; O2SAT 91–99
[2024-09-11] MEDS: Levothyroxine Sodium 125 MCG TABLET PO (05:23)
[2024-09-11] MEDS: clonazePAM 0.5 MG TABLET 0.25 MG PO ×2 (07:24→14:14)
[2024-09-11] MEDS: lisinopriL 10 MG TABLET PO (07:24)
[2024-09-11] MEDS: 0.9 % Sodium Chloride Flush 3 ML SYRINGE IVFLUSH ×3 (07:24→20:50)
[2024-09-11] MEDS: Sertraline HCL 100 MG TABLET PO (07:24)
[2024-09-11] MEDS: Doxycycline Hyclate 100 MG in 0.9 % Sodium Chloride 250 ML 166.67 MG IV (07:25)
[2024-09-11] MEDS: Clopidogrel Bisulfate 75 MG TABLET PO (07:25)
[2024-09-11] MEDS: Roflumilast 500 MCG TABLET PO (07:25)
[2024-09-11] MEDS: Buprenorphine/Naloxone 8/2 mg FILM 1.5 FILM SUBLINGUAL (07:25)
[2024-09-11] MEDS: methylPREDNISolone Sod Succ 40 MG/ML VIAL IVPUSH ×2 (07:25→20:49)
[2024-09-11] MEDS: Fluticasone/Umeclidinium/Vilanterol 200/62.5/25 BLST.W.DEV 1 PUFF INHALE (07:37)
[2024-09-11] MEDS: Albuterol/Iprat 2.5/0.5MG 3 ML AMPUL.NEB INHALE ×4 (07:37→19:55)
[2024-09-11] MEDS: QUEtiapine Fumarate 25 MG TABLET 12.5 MG PO (10:23)
--- NOTE | 2024-09-11 10:24 | P.CONGS_ITS ---
History of Present Illness Consult details Consult date: 09/11/24 Narrative: 68-year-old female with known COPD on O2 supplementation, peripheral vascular disease, neuropathy, and depression admitted 3 days ago because of increasing shortness of breath, body malaise and coughing. She also had a low-grade temperature that time. She was admitted with the impression of acute and chronic respiratory failure. She was hypercarbic at that time She does have poor baseline level of health and is not very active anymore in view of her COPD. She gets short of breath very easily. She had apparently complained of some occasional pain of her rectum. She was referred to me because of question of a thrombosed hemorrhoid. She admits to some occasional leakage of stool and she says she has had this for many years. She says she has a long history of chronic constipation as well. Review of Systems 2 Constitutional: Constitutional: Reports fever(s) Cardiovascular: Cardiovascular: Reports dyspnea, Reports dyspnea on exertion and Reports orthopnea Respiratory: Respiratory: Reports dyspnea and Reports dyspnea on exertion Gastrointestinal: Gastrointestinal: Denies abdominal pain and Reports constipation Genitourinary: Genitourinary: Denies hematuria Musculoskeletal: Musculoskeletal: Reports abnormal gait and Reports muscle weakness Neurologic: Reports abnormal gait [facility] Past Medical History Medical History (Updated 09/13/24 @ 12:25 by Laura Watts MD) Rectal prolapse Acute and chronic respiratory failure with hypercapnia Sepsis Pneumonia Acute exacerbation of chronic obstructive pulmonary disease (COPD) Hypertension, essential Depression, major, recurrent O2 dependent COPD, severe Family History Family History Father No problems noted. Mother Stomach cancer Brother No problems noted. Brother No problems noted. Brother No problems noted. Brother No problems noted. Brother No problems noted. Brother No problems noted. Sister No problems noted. Sister No problems noted. Sister No problems noted. Sister No problems noted. Surgical History Surgical History History of surgery Amputated toe Hx of cholecystectomy History of appendectomy Social History Social History Household Members: Family and Children Household Members Other:: daughter, Housing: House Do you presently have visiting nurse or other home services: No (will be getting VNA) Alcohol intake: never Comment: refusing for staff to remain with patient in bathroom Patient Tobacco Use Status: Former Tobacco user Tobacco use type: Cigarette Cigarettes Per Day: 3 e-Cigarette/Vaping Use: Never Used Substance Use Type: Marijuana service: No Current occupational status: retired and disabled Cognitive needs: No Hearing needs: No Vision needs: No Meds Allergies Allergy/AdvReac Type Severity Reaction Status Date / Time codeine Allergy Unknown hives Verified 09/08/24 09:54 NSAIDS (Non-Steroidal AdvReac Mild On blood Verified 09/08/24 09:54 Anti-Inflamma thinners Active Medications: Current Medications Acetaminophen (Acetaminophen 325 Mg Tablet) 650 mg PO Q6H PRN PRN Reason: Pain, Mild 1-3,fever,headache Albuterol/Ipratropium (Albuterol/Iprat 2.5/0.5mg 3 Ml Ampul.Neb) 3 ml INHALE RQ4H WHILE AWAKE [facility] Last Admin: 09/11/24 07:37 Dose: 3 ml Albuterol/Ipratropium (Albuterol/Iprat 2.5/0.5mg 3 Ml Ampul.Neb) 3 ml INHALE Q2H PRN PRN Reason: Shortness of Breath Benzonatate (Benzonatate 100 Mg Capsule) 100 mg PO TID PRN PRN Reason: Cough Last Admin: 09/10/24 20:18 Dose: 100 mg Buprenorphine/Naloxone (Buprenorphine/Naloxone 8/2 Mg Film) 1.5 film SUBLINGUAL DAILY [facility] Last Admin: 09/11/24 07:25 Dose: 1.5 film Calcium Carbonate (Calcium Carbonate 750 Mg Tab.Chew) 750 mg PO Q4H PRN PRN Reason: Heartburn Ceftriaxone Sodium (Ceftriaxone Sodium 1 Gm Vial) 1 gm IVPUSH Q24H [facility] Last Admin: 09/10/24 13:33 Dose: 1 gm Clonazepam (Clonazepam 0.5 Mg Tablet) 0.25 mg PO TID PRN PRN Reason: Anxiety Last Admin: 09/11/24 07:24 Dose: 0.25 mg Clopidogrel Bisulfate (Clopidogrel Bisulfate 75 Mg Tablet) 75 mg PO DAILY [facility] Last Admin: 09/11/24 07:25 Dose: 75 mg Doxycycline Monohydrate (Doxycycline Monohydrate 100 Mg Capsule) 100 mg PO Q12H [facility] Fluticasone/Umeclidinium/Vilanterol (Fluticasone/Umeclidinium/Vilanterol 200/62.5/25 Blst.W.Dev) 1 puff INHALE RDAILY [facility] Last Admin: 09/11/24 07:37 Dose: 1 puff Levothyroxine Sodium (Levothyroxine Sodium 125 Mcg Tablet) 125 mcg PO DAILY@0600 [facility] Last Admin: 09/11/24 05:23 Dose: 125 mcg Lisinopril (Lisinopril 10 Mg Tablet) 10 mg PO DAILY [facility]; Protocol Last Admin: 09/11/24 07:24 Dose: 10 mg Magnesium Hydroxide (Milk Of Magnesia 30 Ml Oral.Susp) 30 ml PO DAILY PRN PRN Reason: Constipation Meclizine HCl (Meclizine Hcl 25 Mg Tablet) 25 mg PO Q8H PRN PRN Reason: dizziness Melatonin (Melatonin 3 Mg Tablet) 6 mg PO BEDTIME PRN PRN Reason: Insomnia Methylprednisolone Sodium Succinate (Methylprednisolone Sod Succ 40 Mg/Ml Vial) 40 mg IVPUSH Q12H [facility] Last Admin: 09/11/24 07:25 Dose: 40 mg Mirtazapine (Mirtazapine 15 Mg Tablet) 15 mg PO BEDTIME [facility] Last Admin: 09/10/24 20:18 Dose: 15 mg Olanzapine (Olanzapine 5 Mg Tablet) 5 mg PO BEDTIME [facility] Last Admin: 09/10/24 20:18 Dose: 5 mg Quetiapine Fumarate (Quetiapine Fumarate 25 Mg Tablet) 25 mg PO BEDTIME [facility] Quetiapine Fumarate (Quetiapine Fumarate 25 Mg Tablet) 12.5 mg PO DAILY@0900 [facility] Roflumilast (Roflumilast 500 Mcg Tablet) 500 mcg PO DAILY [facility] Last Admin: 09/11/24 07:25 Dose: 500 mcg Sertraline HCl (Sertraline Hcl 100 Mg Tablet) 100 mg PO DAILY [facility] Last Admin: 09/11/24 07:24 Dose: 100 mg Sodium Chloride (0.9 % Sodium Chloride Flush 3 Ml Syringe) 3 ml IVFLUSH QSHIFT [facility] Last Admin: 09/11/24 07:24 Dose: 3 ml Home Medications ?Medication ?Instructions ?Recorded ?Confirmed ?Last Taken ?Type albuterol sulfate 2.5 mg/3 mL 2.5 mg inhalation QID PRN Wheezing 08/25/20 09/08/24 Unknown History (0.083 %) solution for nebulization fluticasone fur. 200 mcg-umeclid 1 ea inhalation DAILY 01/05/24 09/08/24 09/05/24 History 62.5 mcg-vilant 25 mcg inhalat.powder (Trelegy Ellipta) albuterol sulfate 90 mcg/actuation 2 puff inhalation Q6H PRN 06/16/24 09/08/24 Unknown History aerosol inhaler (Ventolin HFA) Shortness Of Breath Or Wheezing mirtazapine 15 mg tablet 15 mg PO BEDTIME 06/16/24 09/08/24 09/05/24 History roflumilast 500 mcg tablet 500 mcg PO DAILY 06/16/24 09/08/24 09/05/24 History clonazepam 0.5 mg tablet 0.25 mg PO BID PRN Anxiety 09/08/24 09/08/24 09/07/24 History Physical Exam 2 Vital Signs: Vital Signs: Last Vital Signs Temp 98.0 F 09/11/24 07:50 Pulse 72 09/11/24 07:50 Resp 18 09/11/24 07:50 BP 152/80 H 09/11/24 07:50 Pulse Ox 99 09/11/24 07:50 O2 Del Method Nasal Cannula 09/11/24 07:50 O2 Flow Rate 4 09/11/24 07:50 Oxygen Flow Rate 4 09/08/24 09:51 BMI result Body Mass Index 19.1 Const: Other: Appears short of breath which she says she has a baseline, frail looking, able to stand up with difficulty Resp: Other: Short of breath Cardio: Rate: regular rate GI: Other: Rectal exam shows what appears to be full rectal prolapse, about 1-2 cm long, no evidence of ischemia. The patient refusing digital exam Palpation (GI): Soft to palpation, not firm and nontender Results Labs 09/10/24 08:45 09/13/24 10:11 Labs: Urine 09/08/24 Range/Units 20:05 Urine Color Dark Yellow Urine Appearance Clear Urine pH 5.5 (5.0-9.0) Ur Specific [place] 1.020 (1.005-1.025) Urine Protein Trace (Neg-Trace) mg/dL Urine Glucose (UA) Negative (Negative) mg/dL All other labs normal. Assessment and Plan (1) Rectal prolapse: Status: Acute She has what appears to be a full rectal prolapse, about 1-2 cm in length. She says that she has had this for many years. She admits to occasional leakage of stool. She says she has been constipated for so many years She had other multiple medical problems at this time. I would recommend symptomatic treatment for now with bowel of constipation with Metamucil b.i.d.. She has severe respiratory issues that appear to be prohibitive for surgical management of her prolapse. I will check on her periodically while she is still in the hospital. The above was discussed with the hospitalist service. Procedures Date of Service Date of Service: 09/13/24
[2024-09-11] MEDS: Benzonatate 100 MG CAPSULE PO (10:26)
[2024-09-11] MEDS: cefTRIAXone sodium 1 GM VIAL IVPUSH (13:20)
[2024-09-11] MEDS: OLANZapine 10 MG VIAL 5 MG IM (13:20)
--- NOTE | 2024-09-11 15:26 | HO.PM.IMPN ---
Subjective Subjective Date of Service: 09/11/24 Interval History: c/o wheezing, shortness of breath Review of Systems Review of Systems: Yes all other systems are reviewed and are negative Physical Exam Vital Signs: Vital Signs: Last Vital Signs Temp 98.3 F 09/11/24 11:10 Pulse 67 09/11/24 15:20 Resp 18 09/11/24 15:20 BP 142/74 H 09/11/24 11:10 Pulse Ox 97 09/11/24 11:10 O2 Del Method Nasal Cannula 09/11/24 11:10 O2 Flow Rate 3 09/11/24 11:10 Oxygen Flow Rate 4 09/08/24 09:51 BMI result Body Mass Index 19.1 Gen: in no acute distress HEENT: sclera anicteric, moist mucus membranes Neck: supple Lungs: bilateral expiratory wheezing Heart: regular rate and rhythm, no murmurs Abd: soft, non-tender, non-distended Ext: no edema Skin: warm/well-perfused Neuro: alert and oriented x3, no focal findings Psych: appropriate affect Objective Data Active Medications Acetaminophen (Acetaminophen 325 Mg Tablet) 650 mg PO Q6H PRN PRN Reason: Pain, Mild 1-3,fever,headache Albuterol/Ipratropium (Albuterol/Iprat 2.5/0.5mg 3 Ml Ampul.Neb) 3 ml INHALE RQ4H WHILE AWAKE [facility] Last Admin: 09/11/24 15:18 Dose: 3 ml Documented By: TRINITY Albuterol/Ipratropium (Albuterol/Iprat 2.5/0.5mg 3 Ml Ampul.Neb) 3 ml INHALE Q2H PRN PRN Reason: Shortness of Breath Benzonatate (Benzonatate 100 Mg Capsule) 100 mg PO TID PRN PRN Reason: Cough Last Admin: 09/11/24 10:26 Dose: 100 mg Documented By: YOSELIN Buprenorphine/Naloxone (Buprenorphine/Naloxone 8/2 Mg Film) 1.5 film SUBLINGUAL DAILY [facility] Last Admin: 09/11/24 07:25 Dose: 1.5 film Documented By: YOSELIN Calcium Carbonate (Calcium Carbonate 750 Mg Tab.Chew) 750 mg PO Q4H PRN PRN Reason: Heartburn Ceftriaxone Sodium (Ceftriaxone Sodium 1 Gm Vial) 1 gm IVPUSH Q24H [facility] Last Admin: 09/11/24 13:20 Dose: 1 gm Documented By: YOSELIN Clonazepam (Clonazepam 0.5 Mg Tablet) 0.25 mg PO TID PRN PRN Reason: Anxiety Last Admin: 09/11/24 14:14 Dose: 0.25 mg Documented By: YOSELIN Clopidogrel Bisulfate (Clopidogrel Bisulfate 75 Mg Tablet) 75 mg PO DAILY [facility] Last Admin: 09/11/24 07:25 Dose: 75 mg Documented By: YOSELIN Doxycycline Monohydrate (Doxycycline Monohydrate 100 Mg Capsule) 100 mg PO Q12H [facility] Fluticasone/Umeclidinium/Vilanterol (Fluticasone/Umeclidinium/Vilanterol 200/62.5/25 Blst.W.Dev) 1 puff INHALE RDAILY [facility] Last Admin: 09/11/24 07:37 Dose: 1 puff Documented By: TRINITY Levothyroxine Sodium (Levothyroxine Sodium 125 Mcg Tablet) 125 mcg PO DAILY@0600 [facility] Last Admin: 09/11/24 05:23 Dose: 125 mcg Documented By: RADHA Lisinopril (Lisinopril 10 Mg Tablet) 10 mg PO DAILY [facility]; Protocol Last Admin: 09/11/24 07:24 Dose: 10 mg Documented By: YOSELIN Magnesium Hydroxide (Milk Of Magnesia 30 Ml Oral.Susp) 30 ml PO DAILY PRN PRN Reason: Constipation Meclizine HCl (Meclizine Hcl 25 Mg Tablet) 25 mg PO Q8H PRN PRN Reason: dizziness Melatonin (Melatonin 3 Mg Tablet) 6 mg PO BEDTIME PRN PRN Reason: Insomnia Methylprednisolone Sodium Succinate (Methylprednisolone Sod Succ 40 Mg/Ml Vial) 40 mg IVPUSH Q12H [facility] Last Admin: 09/11/24 07:25 Dose: 40 mg Documented By: YOSELIN Mirtazapine (Mirtazapine 15 Mg Tablet) 15 mg PO BEDTIME [facility] Last Admin: 09/10/24 20:18 Dose: 15 mg Documented By: RADHA Olanzapine (Olanzapine 5 Mg Tablet) 5 mg PO BEDTIME [facility] Last Admin: 09/10/24 20:18 Dose: 5 mg Documented By: RADHA Quetiapine Fumarate (Quetiapine Fumarate 25 Mg Tablet) 25 mg PO BEDTIME [facility] Quetiapine Fumarate (Quetiapine Fumarate 25 Mg Tablet) 12.5 mg PO DAILY@0900 [facility] Last Admin: 09/11/24 10:23 Dose: 12.5 mg Documented By: YOSELIN Roflumilast (Roflumilast 500 Mcg Tablet) 500 mcg PO DAILY [facility] Last Admin: 09/11/24 07:25 Dose: 500 mcg Documented By: YOSELIN Sertraline HCl (Sertraline Hcl 100 Mg Tablet) 100 mg PO DAILY [facility] Last Admin: 09/11/24 07:24 Dose: 100 mg Documented By: YOSELIN Sodium Chloride (0.9 % Sodium Chloride Flush 3 Ml Syringe) 3 ml IVFLUSH QSHIFT [facility] Last Admin: 09/11/24 07:24 Dose: 3 ml Documented By: YOSELIN Labs 09/10/24 08:45 09/10/24 08:45 Labs: CT chest 09/11/24 1. There are areas of pleural/parenchymal scarring and a focus of consolidation in the left upper lobe but no discrete pulmonary nodules. In particular a nodule is not seen in the area in question. please obtain a 1 year follow-up examination to establish a baseline and demonstrate stability. 2. Severe centrilobular emphysema. 3. Bronchitis. 4. Thickened interlobular septa consistent with acute or chronic interstitial disease. Interstitial edema is not excluded. Microbiology Microbiology Results: Microbiology 09/08/24 10:39 Blood Culture - Preliminary Blood - Venous No growth after 48 hours. 09/08/24 10:39 Blood Culture - Preliminary Blood - Venous No growth after 48 hours. 09/08/24 20:05 Urine Culture - Final Urine clean catch - Clean Catch Midstream Assessment and Plan (1) Acute exacerbation of chronic obstructive pulmonary disease: Status: Acute Plan d4 for 68yo F with COPD on home O2 2L presenting with dyspnea, cough, chest pain, and malaise; admitted for hypoxia due to COPD exacerbation acute/chronic hypoxic/hypercarbic respiratory failure - continue IV methylprednisolone + standing/prn nebs, continue roflumilast + Trelegy, doxycycline 09/08- - currently on 3L O2 pneumonia - ceftriaxone 09/10-, doxycycline 09/08-, trend PCT, BCx negative - repeat CT chest in 1 yr per Radiology to establish a baseline and demonstrate stability HTN - continue lisinopril hypothyroidism - continue LT4 mood disorder - continue sertraline, olanzapine, clonazepam, mirtazapine PVD - continue clopidogrel OUD - continue Suboxone VTE ppx - enoxaparin dispo - IPR/STR In my clinical judgment, the patient requires continued inpatient hospitalization for the following reasons: COPD, IV ABX Total time managing care of this patient today: 45 minutes. Quality Stroke Does the patient have a stroke diagnosis?: No VTE Prior VTE?: No VTE Risk Level:: Medical - moderate - high VTE Device Contraindication: N/A - Device Ordered VTE Drug Contraindication: Treatment Not Indicated
--- NOTE | 2024-09-11 15:26 | MHC.CM.PN ---
EMR reviewed and per MD rounds, pt is not medically cleared for discharge due to management of COPD. This CM met with pt to discuss discharge plans, she is agreeable with going to [facility] once she is medically cleared for discharge, [facility] is her first choice, and are willing to accept/following.
[2024-09-11] MEDS: Psyllium seed 3.7 GM PACKET PO ×2 (17:00→20:49)
[2024-09-11] MEDS: Doxycycline Monohydrate 100 MG CAPSULE PO (20:49)
[2024-09-11] MEDS: Mirtazapine 15 MG TABLET PO (20:49)
[2024-09-11] MEDS: OLANZapine 5 MG TABLET PO (20:49)
[2024-09-11] MEDS: QUEtiapine Fumarate 25 MG TABLET PO (20:49)
[2024-09-11] MEDS: Melatonin 3 MG TABLET 6 MG PO (20:49)
[2024-09-12] VITALS (13 sets, daily range): BP systolic 127–175; BP diastolic 62–89; PULSE 64–94; RESP 18–20; TEMP 36.1–36.7; O2SAT 91–98
[2024-09-12 06:38] LABS: VBG Base Excess 14.1 mmol/L; VBG HCO3 41 mmol/L (22-26); VBG pCO2 69 mmHg; VBG pH 7.38 (7.32-7.43); VBG pO2 46 mmHg
[2024-09-12] MEDS: clonazePAM 0.5 MG TABLET 0.25 MG PO ×3 (06:39→20:09)
[2024-09-12 06:40] LABS: Venous Blood Gas Refer to POC result
[2024-09-12] MEDS: Levothyroxine Sodium 125 MCG TABLET PO (06:40)
[2024-09-12 06:55] LABS: B Type Natriuretic Peptide 485 pg/mL (<100)
[2024-09-12 06:59] LABS: Blood Urea Nitrogen 28 mg/dL (9-16); Calcium 8.7 mg/dL (8.4-10.2); Estimated Glomerular Filt Rate > 60; Glucose Random 102 mg/dL (60-115)
--- NOTE | 2024-09-12 07:00 | CA_ITS ---
Transthoracic Echocardiogram Patient (Last, First, Middle): Gisela Amaya M Gender: Female Date of : 1955 Age: 68 Procedure Date: 09/12/2024 Procedure Type: Transthoracic Echocardiogram Location: [facility] [place] Height: 162.56 cm Weight: 50.35 kg BSA: 1.52 m2 Heart Rate: 78 bpm BP: 165 / 78 mmHg Monitoring Tech: SB Referring MD: Laura Watts MD Symptoms: ?chf Study Quality: Adequate ECG Rhythm: Sinus Conclusions: - The left ventricular systolic function is normal. The calculated ejection fraction is 69% by biplane method. - There is moderate calcification of the aortic valve. There is mild aortic valve stenosis. - There is moderate mitral annular calcification. Findings Left Ventricle Normal left ventricular cavity size. There is normal left ventricular wall thickness. The left ventricular systolic function is normal. The calculated ejection fraction is 69% by biplane method. There is no evidence of regional wall motion abnormalities. Diastolic function is normal for age. Right Ventricle Normal right ventricular cavity size and systolic function. Atria The left atrium is mildly dilated. The right atrium is normal in size. Aortic Valve There is moderate calcification of the aortic valve. There is mild aortic valve stenosis. There is mild aortic valve regurgitation. Mitral Valve There is mild anterior mitral leaflet thickening. There is moderate mitral annular calcification. There is no mitral valve regurgitation. There is no mitral valve stenosis. Pulmonic Valve There is trace pulmonic valve regurgitation. Tricuspid Valve Normal tricuspid valve structure. There is no tricuspid valve regurgitation. Tricuspid regurgitation envelope is inadequate for calculation of right ventricular systolic pressure. Great Vessels The aorta was not well visualized. The aortic annulus and sinuses of valsalva are normal in size. Venous The inferior vena cava is normal in size and collapses greater than 50% with inspiration. Pericardium/Pleural There is no evidence of pericardial effusion. Prior Study Comparison No prior study available for comparison. Measurements 2D Linear Measurements IVSd: 0.67 0.6-0.9/0.6-1.0 cm LVIDd: 4.77 3.9-5.3/4.2-5.9 cm LVIDd Index: 3.14 2.4-3.2/2.2-3.1 cm/m2 LVIDs: 2.40 2.0-3.6 cm LVPWd: 0.71 0.7-1.1 cm LA Diam: 3.40 2.7-3.8/3.0-4.0 cm LAIDs Index: 2.24 1.5-2.3 cm/m2 LV Mass: 128.80 67-162/88-224 g LV Mass Index: 84.74 43-95/49-115 g/m2 LVOT Diam: 1.90 3.0+(-)1.3 cm 2D Systolic Function EF 4C: 67.00 >55% EF 2C: 73.20 >55% EF BiP: 69.20 >55% Mitral Valve MV Pk E: 0.93 MV PK A: 0.96 MV Decel Time: 181.00 E/A: 1.00 E'Lateral: 6.42 E'Medial: 7.07 E/E' Med: 13.10 E/E' Lat: 14.40 PHT: 53.00 MVA PHT: 4.15 Decel [place]: 5.11 Aortic Valve AoV Pk Cristiano: 2.42 AoV Mn Cristiano: 1.44 AoV VTI: 0.41 AoV Pk Grad: 23.00 Aov Mn Grad: 10.00 MELISA Cont.VTI: 1.85 AI Pk Cristiano: 4.46 AI [place]: 2.18 LVOT LVOT Pk Cristiano: 1.52 LVOT Mn Cristiano: 0.89 LVOT VTI: 0.27 LVOT Pk Grad: 9.00 LVOT Mn Grad: 4.00 LVOT Diam: 1.90 LVOT Area: 2.84 Diastolic Function MV Pk E: 0.93 MV Pk A: 0.96 E/A: 1.00 E'Medial: 7.07 E/E' Med: 13.10 E' Laterial: 6.42 E/E' Lat: 14.40 Right Ventricle TAPSE (mm): 22.60 TVS' Cristiano: 15.50 Tricuspid Valve RA Press: 3.00 Great Vessels Aorta Sinus of Valsalva: 2.90 2.0-3.5 cm Pulmonary Valve PV Pk Cristiano: 1.01 Peak PV Grad: 4.00 Updated in Other Vendor System with Status of Final Franck Wild MD electronically signed on 09/12/2024 3:08:01 PM with status of Final
[2024-09-12 07:10] LABS: Anion Gap 11 (12-20); Carbon Dioxide 31 mmol/L (22-29); Chloride 102 mmol/L (96-108); Potassium 4.9 mmol/L (3.3-5.1); Sodium 139 mmol/L (135-145)
[2024-09-12 07:16] LABS: Procalcitonin 0.31 ng/mL
[2024-09-12] MEDS: Albuterol/Iprat 2.5/0.5MG 3 ML AMPUL.NEB INHALE ×4 (07:46→19:09)
[2024-09-12] MEDS: Fluticasone/Umeclidinium/Vilanterol 200/62.5/25 BLST.W.DEV 1 PUFF INHALE (07:46)
[2024-09-12] MEDS: Roflumilast 500 MCG TABLET PO (08:44)
[2024-09-12] MEDS: QUEtiapine Fumarate 25 MG TABLET 12.5 MG PO (08:44)
[2024-09-12] MEDS: Psyllium seed 3.7 GM PACKET PO ×2 (08:44→20:11)
[2024-09-12] MEDS: lisinopriL 10 MG TABLET PO (08:44)
[2024-09-12] MEDS: Benzonatate 100 MG CAPSULE PO ×2 (08:44→17:01)
[2024-09-12] MEDS: Furosemide 20 MG/2 ML VIAL IVPUSH (08:45)
[2024-09-12] MEDS: Sertraline HCL 100 MG TABLET PO (08:45)
[2024-09-12] MEDS: 0.9 % Sodium Chloride Flush 3 ML SYRINGE IVFLUSH ×3 (08:45→20:12)
[2024-09-12] MEDS: Buprenorphine/Naloxone 8/2 mg FILM 1.5 FILM SUBLINGUAL (08:45)
[2024-09-12] MEDS: Meclizine HCl 25 MG TABLET PO (08:45)
[2024-09-12] MEDS: Clopidogrel Bisulfate 75 MG TABLET PO (08:45)
[2024-09-12] MEDS: Doxycycline Monohydrate 100 MG CAPSULE PO ×2 (08:45→20:08)
[2024-09-12] MEDS: methylPREDNISolone Sod Succ 40 MG/ML VIAL IVPUSH ×2 (08:45→20:09)
--- NOTE | 2024-09-12 12:10 | P.PNIM_ITS ---
Subjective Subjective Date of Service: 09/12/24 Interval History: ongoing visual hallucinations short of breath though improving Review of Systems Review of Systems: Yes all other systems are reviewed and are negative Physical Exam 2 Vital Signs: Vital Signs: Last Vital Signs Temp 97.0 F 09/12/24 11:15 Pulse 79 09/12/24 12:03 Resp 20 09/12/24 12:03 BP 130/63 09/12/24 11:15 Pulse Ox 94 09/12/24 11:15 O2 Del Method Nasal Cannula 09/12/24 11:15 O2 Flow Rate 2 09/12/24 11:15 Oxygen Flow Rate 4 09/08/24 09:51 BMI result Body Mass Index 19.1 Gen: in no acute distress HEENT: sclera anicteric, moist mucus membranes Neck: supple Lungs: bilateral expiratory wheezing Heart: regular rate and rhythm, no murmurs Abd: soft, non-tender, non-distended Ext: no edema Skin: warm/well-perfused Neuro: alert and oriented x3, no focal findings Psych: appropriate affect Objective Data Active Medications Acetaminophen (Acetaminophen 325 Mg Tablet) 650 mg PO Q6H PRN PRN Reason: Pain, Mild 1-3,fever,headache Albuterol/Ipratropium (Albuterol/Iprat 2.5/0.5mg 3 Ml Ampul.Neb) 3 ml INHALE RQ4H WHILE AWAKE [facility] Last Admin: 09/12/24 12:02 Dose: 3 ml Documented By: TRINITY Albuterol/Ipratropium (Albuterol/Iprat 2.5/0.5mg 3 Ml Ampul.Neb) 3 ml INHALE Q2H PRN PRN Reason: Shortness of Breath Benzonatate (Benzonatate 100 Mg Capsule) 100 mg PO TID PRN PRN Reason: Cough Last Admin: 09/12/24 08:44 Dose: 100 mg Documented By: RADHA Buprenorphine/Naloxone (Buprenorphine/Naloxone 8/2 Mg Film) 1.5 film SUBLINGUAL DAILY [facility] Last Admin: 09/12/24 08:45 Dose: 1.5 film Documented By: RADHA Calcium Carbonate (Calcium Carbonate 750 Mg Tab.Chew) 750 mg PO Q4H PRN PRN Reason: Heartburn Ceftriaxone Sodium (Ceftriaxone Sodium 1 Gm Vial) 1 gm IVPUSH Q24H [facility] Last Admin: 09/11/24 13:20 Dose: 1 gm Documented By: YOSELIN Clonazepam (Clonazepam 0.5 Mg Tablet) 0.25 mg PO TID PRN PRN Reason: Anxiety Last Admin: 09/12/24 06:39 Dose: 0.25 mg Documented By: RADHA Clopidogrel Bisulfate (Clopidogrel Bisulfate 75 Mg Tablet) 75 mg PO DAILY [facility] Last Admin: 09/12/24 08:45 Dose: 75 mg Documented By: RADHA Doxycycline Monohydrate (Doxycycline Monohydrate 100 Mg Capsule) 100 mg PO Q12H [facility] Last Admin: 09/12/24 08:45 Dose: 100 mg Documented By: RADHA Fluticasone/Umeclidinium/Vilanterol (Fluticasone/Umeclidinium/Vilanterol 200/62.5 Blst.W.Dev) 1 puff INHALE RDAILY [facility] Last Admin: 09/12/24 07:46 Dose: 1 puff Documented By: TRINITY Levothyroxine Sodium (Levothyroxine Sodium 125 Mcg Tablet) 125 mcg PO DAILY@0600 [facility] Last Admin: 09/12/24 06:40 Dose: 125 mcg Documented By: RADHA Lisinopril (Lisinopril 10 Mg Tablet) 10 mg PO DAILY [facility]; Protocol Last Admin: 09/12/24 08:44 Dose: 10 mg Documented By: RADHA Magnesium Hydroxide (Milk Of Magnesia 30 Ml Oral.Susp) 30 ml PO DAILY PRN PRN Reason: Constipation Meclizine HCl (Meclizine Hcl 25 Mg Tablet) 25 mg PO Q8H PRN PRN Reason: dizziness Last Admin: 09/12/24 08:45 Dose: 25 mg Documented By: RADHA Melatonin (Melatonin 3 Mg Tablet) 6 mg PO BEDTIME PRN PRN Reason: Insomnia Last Admin: 09/11/24 20:49 Dose: 6 mg Documented By: RADHA Methylprednisolone Sodium Succinate (Methylprednisolone Sod Succ 40 Mg/Ml Vial) 40 mg IVPUSH Q12H [facility] Last Admin: 09/12/24 08:45 Dose: 40 mg Documented By: RADHA Mirtazapine (Mirtazapine 15 Mg Tablet) 15 mg PO BEDTIME [facility] Last Admin: 09/11/24 20:49 Dose: 15 mg Documented By: RADHA Olanzapine (Olanzapine 7.5 Mg Tablet) 7.5 mg PO BEDTIME [facility] Olanzapine (Olanzapine 2.5 Mg Tablet) 2.5 mg PO DAILY [facility] Psyllium Hydrophilic Mucilloid (Psyllium Seed 3.7 Gm Packet) 3.7 gm PO BID [facility] Last Admin: 09/12/24 08:44 Dose: 3.7 gm Documented By: RADHA Roflumilast (Roflumilast 500 Mcg Tablet) 500 mcg PO DAILY [facility] Last Admin: 09/12/24 08:44 Dose: 500 mcg Documented By: RADHA Sertraline HCl (Sertraline Hcl 100 Mg Tablet) 100 mg PO DAILY [facility] Last Admin: 09/12/24 08:45 Dose: 100 mg Documented By: RADHA Sodium Chloride (0.9 % Sodium Chloride Flush 3 Ml Syringe) 3 ml IVFLUSH QSHIFT [facility] Last Admin: 09/12/24 08:45 Dose: 3 ml Documented By: RADHA Labs 09/10/24 08:45 09/12/24 06:27 Labs: Laboratory Results - last 24 hr 09/12/24 09/12/24 06:27 06:32 VBG pH 7.38 VBG pCO2 69 VBG pO2 46 VBG HCO3 41 H VBG O2 Saturation 74.0 VBG Base Excess 14.1 Anion Gap 11 L Estim Creat Clear Calc 64.0 Estimated GFR > 60 Random Glucose 102 Calcium 8.7 B-Natriuretic Peptide 485 H Procalcitonin 0.31 Assessment and Plan (1) Acute exacerbation of chronic obstructive pulmonary disease: Status: Acute Plan d5 for 68yo F with COPD on home O2 2L presenting with dyspnea, cough, chest pain, and malaise; admitted for hypoxia due to COPD exacerbation acute/chronic hypoxic/hypercarbic respiratory failure - continue IV methylprednisolone + standing/prn nebs, continue roflumilast + Trelegy, doxycycline 09/08- - currently back on 2L O2 - BNP elevated; give 1 dose furosemide and also check TTE pneumonia - ceftriaxone 09/10-, doxycycline 09/08-, PCT improving, BCx negative - repeat CT chest in 1 yr per Radiology to establish a baseline and demonstrate stability HTN - continue lisinopril hypothyroidism - continue LT4 mood disorder with hallucinations - continue sertraline, olanzapine, clonazepam, mirtazapine - will consult Psychiatry re: hallucinations PVD - continue clopidogrel OUD - continue Suboxone VTE ppx - enoxaparin dispo - IPR/STR In my clinical judgment, the patient requires continued inpatient hospitalization for the following reasons: COPD, IV ABX Total time managing care of this patient today: 40 minutes. Quality Stroke Does the patient have a stroke diagnosis?: No VTE Prior VTE?: No VTE Risk Level:: Medical - moderate - high VTE Device Contraindication: N/A - Device Ordered VTE Drug Contraindication: Treatment Not Indicated
[2024-09-12] MEDS: OLANZapine 2.5 MG TABLET PO (12:55)
[2024-09-12] MEDS: cefTRIAXone sodium 1 GM VIAL IVPUSH (12:55)
--- NOTE | 2024-09-12 16:01 | PM.PSYCN ---
History of Present Illness Date of Service: 09/12/24 <Magnolia Cole NP - Last Filed: 09/12/24 16:22> Chief Complaint: COPD <Magnolia Cole NP - Last Filed: 09/12/24 16:22> Requesting physician: Laura Watts <Magnolia Cole NP - Last Filed: 09/12/24 16:22> Discussed with referring provider: Yes <Magnolia Cole NP - Last Filed: 09/12/24 16:22> Sources of Information: patient interviewed and chart reviewed <Magnolia Cole NP - Last Filed: 09/12/24 16:22> HPI Narrative: Patient is a 68-year-old female with hx of COPD on 2-3 L NC, HTN, depression, anxiety, neuropathy, peripheral vascular occlusive disease presents to the emergency department for fatigue, malaise, myalgias, productive cough. During psychiatric assessment, pt present alert and oriented x3. Calm, friendly and cooperative. Patient reports experiencing hallucinations for the past few months. Patient stated, I thought it would go away. It doesn't happen daily. Sometimes it's once a week or twice a week. I'll fall asleep and wake up, everything looks normal again . Patient reported she does not have auditory hallucinations but visual hallucinations; such as leprechauns, a squirrel or she will be in the hospital and she will think that she is at home . She reports seeing psychiatrist her entire life and currently sees a provider by the name of Jayleen;pt is unable to recall providers last name. Pt states she would like an outpatient therapist as well; reports being medication compliant and states that she has been taking the same psychiatric medications for some time now . Discussed increasing olanzapine dose; patient agreed to trial. She is requesting to not be put on Seroquel because it makes her go crazy ; Provider notified. <Magnolia Cole NP - Last Filed: 09/12/24 16:22> Past Psychiatric History: Outpatient prescriber: Jayleen does not have outpatient therapist denies hx of SA/SIB. <Magnolia Cole NP - Last Filed: 09/12/24 16:22> Medical Evaluation Reviewed: Yes <Magnolia Cole NP - Last Filed: 09/12/24 16:22> [facility] Medical History: Medical History (Updated 09/12/24 @ 16:16 by Magnolia Cole NP) Rectal prolapse Acute and chronic respiratory failure with hypercapnia Sepsis Pneumonia Acute exacerbation of chronic obstructive pulmonary disease (COPD) Hypertension, essential Depression, major, recurrent O2 dependent COPD, severe <Magnolia Cole NP - Last Filed: 09/12/24 16:22> Surgical History: Surgical History History of surgery Amputated toe Hx of cholecystectomy History of appendectomy <Magnolia Cole NP - Last Filed: 09/12/24 16:22> Family History: denies <Magnolia Cole NP - Last Filed: 09/12/24 16:22> Social History: Lives with her siblings. . 3 adult children. <Magnolia Cole NP - Last Filed: 09/12/24 16:22> Substance History: hx of abusing Percocet's. occasional marijuana use. <Magnolia Cole NP - Last Filed: 09/12/24 16:22> Trauma History: yes <Magnolia Cole NP - Last Filed: 09/12/24 16:22> Diagnostics Vital Signs (24Hr): Vital Signs - 24 hr 09/11/24 19:55 09/11/24 19:56 09/11/24 23:08 Temperature 98.6 F 98.1 F Pulse Rate 81 82 85 Respiratory Rate 20 20 18 Blood Pressure 163/81 H 143/71 H Pulse Oximetry 94 95 Oxygen Delivery Method Nasal Cannula Nasal Cannula Oxygen Flow Rate 3 3 09/12/24 04:00 09/12/24 07:49 09/12/24 08:00 Temperature 97.7 F 97.0 F Pulse Rate 78 70 90 Respiratory Rate 18 18 20 Blood Pressure 165/78 H 138/89 Pulse Oximetry 98 92 Oxygen Delivery Method Nasal Cannula Shovel Mask Nasal Cannula Oxygen Flow Rate 3 2 09/12/24 11:15 09/12/24 12:03 09/12/24 14:05 Temperature 97.0 F Pulse Rate 64 79 70 Respiratory Rate 20 20 Blood Pressure 130/63 140/62 H Pulse Oximetry 94 Oxygen Delivery Method Nasal Cannula Oxygen Flow Rate 2 09/12/24 14:07 09/12/24 14:12 09/12/24 15:00 Temperature Pulse Rate 94 92 76 Respiratory Rate 20 Blood Pressure 127/64 133/69 Pulse Oximetry Oxygen Delivery Method Oxygen Flow Rate 09/12/24 15:21 Temperature 97.1 F Pulse Rate 80 Respiratory Rate 20 Blood Pressure 155/81 H Pulse Oximetry 94 Oxygen Delivery Method Nasal Cannula Oxygen Flow Rate 2 BMI result Body Mass Index 19.1 <Magnolia Cole NP - Last Filed: 09/12/24 16:22> Labs Results: 09/10/24 08:45 09/12/24 06:27 <Magnolia Cole NP - Last Filed: 09/12/24 16:22> Labs: Laboratory Results - last 48 hr 09/12/24 09/12/24 06:27 06:32 VBG pH 7.38 VBG pCO2 69 VBG pO2 46 VBG HCO3 41 H VBG O2 Saturation 74.0 VBG Base Excess 14.1 Sodium 139 Potassium 4.9 D Chloride 102 Carbon Dioxide 31 H Anion Gap 11 L BUN 28 H Creatinine 0.65 Estim Creat Clear Calc 64.0 Estimated GFR > 60 Random Glucose 102 Calcium 8.7 B-Natriuretic Peptide 485 H Procalcitonin 0.31 <Magnolia Cole NP - Last Filed: 09/12/24 16:22> Imaging Radiology Impressions: ITS Impressions Chest X-Ray 09/10/24 13:30 IMPRESSION: 1. Emphysema with extensive underlying chronic interstitial lung disease. Within these confines, no definite acute superimposed disease identified. Subtle pneumonia could easily be obscured by the degree of underlying lung disease. 2. Stellate nodular opacity right upper lobe, suspicious for lung nodule versus foci of scar. Correlation with CT recommended. 3. Enlarged pulmonary artery suggesting pulmonary arterial hypertension. Electronically signed by: Chris Kyle MD 09/10/2024 02:18 PM [facility] <Magnolia Cole NP - Last Filed: 09/12/24 16:22> Mental Status Exam Mental Status Exam Patient Appearance: Appropriate <Magnolia Cole NP - Last Filed: 09/12/24 16:22> Patient Orientation: Person, Place, Time and Situation <Magnolia Cole NP - Last Filed: 09/12/24 16:22> Level of Consciousness: Awake and Alert <Magnolia Cole NP - Last Filed: 09/12/24 16:22> Patient Behavior: Appropriate, Cooperative and Good Eye Contact <Magnolia Cole NP - Last Filed: 09/12/24 16:22> Mood Description: Calm <Magnolia Cole NP - Last Filed: 09/12/24 16:22> Affect Description: Calm <Magnolia Cole NP - Last Filed: 09/12/24 16:22> Ability to Follow Directions: Good <Magnolia Cole NP - Last Filed: 09/12/24 16:22> Speech Pattern: Clear and Appropriate <Magnolia Cole NP - Last Filed: 09/12/24 16:22> Memory Description: Intact <Magnolia Cole NP - Last Filed: 09/12/24 16:22> Hallucinations: None <Magnolia Cole NP - Last Filed: 09/12/24 16:22> Delusions: Not Present <Magnolia Cole NP - Last Filed: 09/12/24 16:22> Thought Process: Intact <Magnolia Cole NP - Last Filed: 09/12/24 16:22> Thought Content: positive for Intact <Magnolia Cole NP - Last Filed: 09/12/24 16:22> Judgement: Fair <Magnolia Cole NP - Last Filed: 09/12/24 16:22> Medications Medications Current Medications Acetaminophen (Acetaminophen 325 Mg Tablet) 650 mg PO Q6H PRN PRN Reason: Pain, Mild 1-3,fever,headache Albuterol/Ipratropium (Albuterol/Iprat 2.5/0.5mg 3 Ml Ampul.Neb) 3 ml INHALE RQ4H WHILE AWAKE [facility] Last Admin: 09/12/24 14:59 Dose: 3 ml Albuterol/Ipratropium (Albuterol/Iprat 2.5/0.5mg 3 Ml Ampul.Neb) 3 ml INHALE Q2H PRN PRN Reason: Shortness of Breath Benzonatate (Benzonatate 100 Mg Capsule) 100 mg PO TID PRN PRN Reason: Cough Last Admin: 09/12/24 08:44 Dose: 100 mg Buprenorphine/Naloxone (Buprenorphine/Naloxone 8/2 Mg Film) 1.5 film SUBLINGUAL DAILY [facility] Last Admin: 09/12/24 08:45 Dose: 1.5 film Calcium Carbonate (Calcium Carbonate 750 Mg Tab.Chew) 750 mg PO Q4H PRN PRN Reason: Heartburn Ceftriaxone Sodium (Ceftriaxone Sodium 1 Gm Vial) 1 gm IVPUSH Q24H [facility] Last Admin: 09/12/24 12:55 Dose: 1 gm Clonazepam (Clonazepam 0.5 Mg Tablet) 0.25 mg PO TID PRN PRN Reason: Anxiety Last Admin: 09/12/24 15:22 Dose: 0.25 mg Clopidogrel Bisulfate (Clopidogrel Bisulfate 75 Mg Tablet) 75 mg PO DAILY [facility] Last Admin: 09/12/24 08:45 Dose: 75 mg Doxycycline Monohydrate (Doxycycline Monohydrate 100 Mg Capsule) 100 mg PO Q12H [facility] Last Admin: 09/12/24 08:45 Dose: 100 mg Fluticasone/Umeclidinium/Vilanterol (Fluticasone/Umeclidinium/Vilanterol 200/62.5/25 Blst.W.Dev) 1 puff INHALE RDAILY [facility] Last Admin: 09/12/24 07:46 Dose: 1 puff Levothyroxine Sodium (Levothyroxine Sodium 125 Mcg Tablet) 125 mcg PO DAILY@0600 [facility] Last Admin: 09/12/24 06:40 Dose: 125 mcg Lisinopril (Lisinopril 10 Mg Tablet) 10 mg PO DAILY [facility]; Protocol Last Admin: 09/12/24 08:44 Dose: 10 mg Magnesium Hydroxide (Milk Of Magnesia 30 Ml Oral.Susp) 30 ml PO DAILY PRN PRN Reason: Constipation Meclizine HCl (Meclizine Hcl 25 Mg Tablet) 25 mg PO Q8H PRN PRN Reason: dizziness Last Admin: 09/12/24 08:45 Dose: 25 mg Melatonin (Melatonin 3 Mg Tablet) 6 mg PO BEDTIME PRN PRN Reason: Insomnia Last Admin: 09/11/24 20:49 Dose: 6 mg Methylprednisolone Sodium Succinate (Methylprednisolone Sod Succ 40 Mg/Ml Vial) 40 mg IVPUSH Q12H [facility] Last Admin: 09/12/24 08:45 Dose: 40 mg Mirtazapine (Mirtazapine 15 Mg Tablet) 15 mg PO BEDTIME [facility] Last Admin: 09/11/24 20:49 Dose: 15 mg Olanzapine (Olanzapine 7.5 Mg Tablet) 7.5 mg PO BEDTIME [facility] Olanzapine (Olanzapine 2.5 Mg Tablet) 2.5 mg PO DAILY [facility] Last Admin: 09/12/24 12:55 Dose: 2.5 mg Psyllium Hydrophilic Mucilloid (Psyllium Seed 3.7 Gm Packet) 3.7 gm PO BID [facility] Last Admin: 09/12/24 08:44 Dose: 3.7 gm Roflumilast (Roflumilast 500 Mcg Tablet) 500 mcg PO DAILY [facility] Last Admin: 09/12/24 08:44 Dose: 500 mcg Sertraline HCl (Sertraline Hcl 100 Mg Tablet) 100 mg PO DAILY [facility] Last Admin: 09/12/24 08:45 Dose: 100 mg Sodium Chloride (0.9 % Sodium Chloride Flush 3 Ml Syringe) 3 ml IVFLUSH QSHIFT [facility] Last Admin: 09/12/24 15:25 Dose: 3 ml <Magnolia Cole NP - Last Filed: 09/12/24 16:22> Allergies Allergies Allergy/AdvReac Type Severity Reaction Status Date / Time codeine Allergy Unknown hives Verified 09/08/24 09:54 NSAIDS (Non-Steroidal AdvReac Mild On blood Verified 09/08/24 09:54 Anti-Inflamma thinners <Magnolia Cole NP - Last Filed: 09/12/24 16:22> Assessment & Plan Assessment & Plan (1) Hallucinations, unspecified: Status: Acute <Magnolia Cole NP - Last Filed: 09/12/24 16:22> Code(s): R44.3 - Hallucinations, unspecified <Magnolia Cole NP - Last Filed: 09/12/24 16:22> Assessment and Plan: Recommendations: -continue home psychiatric medications -increase olanzapine to 5mg PO bedtime -treat any underlying illness which can be causing confusion/delirium -have patient follow up with outpatient psychiatric provider/referral to outpatient therapist <Magnolia Cole NP - Last Filed: 09/12/24 16:22> ? steroid contributing factor to tinoco and infection cephalosporins can occ cause hallucinations pt with hx rem sleep dx ? recent episodes of vis tinoco outpt ? early dementia hx of MCI Recommendations: would benefit from brain imaging new onset tinoco in 68 yo -continue home psychiatric medications -increase olanzapine at bedtime -treat any underlying illness which can be causing confusion/delirium -have patient follow up with outpatient psychiatric provider/referral to outpatient therapist <Shaun Pierson MD - Last Filed: 09/12/24 19:12> Total time managing care of this patient today _30___ minutes. <Magnolia Cole NP - Last Filed: 09/12/24 16:22> Patient educated on: diagnosis and medication risk/benefits <Magnolia Cole NP - Last Filed: 09/12/24 16:22>
[2024-09-12] MEDS: OLANZapine 7.5 MG TABLET PO (20:08)
[2024-09-12] MEDS: Mirtazapine 15 MG TABLET PO (20:09)
--- NOTE | 2024-09-13 | ECG_ITS ---
Test Reason : tachcardia Blood Pressure : */* mmHG Vent. Rate : 62 BPM Atrial Rate : 62 BPM P-R Int : 116 ms QRS Dur : 148 ms QT Int : 408 ms P-R-T Axes : 65 57 50 degrees QTcB Int : 414 ms Sinus rhythm with Premature atrial complexes Non-specific intra-ventricular conduction block Abnormal ECG When compared with ECG of 08-Sep-2024 10:19, Vent. rate has decreased by 33 bpm Referred By: Laura Watts Electronically Signed By: MARIA ISABEL SY
[2024-09-13 03:34] VITALS: BP 167/86; PULSE 67; RESP 18; TEMP 36.1; O2SAT 99
[2024-09-13] MEDS: Levothyroxine Sodium 125 MCG TABLET PO (05:32)
[2024-09-13] MEDS: clonazePAM 0.5 MG TABLET 0.25 MG PO ×2 (05:35→13:36)
[2024-09-13 07:18] LABS: Ammonia 24 umol/L (13-55)
[2024-09-13 07:27] LABS: Alanine Aminotransferase 17 U/L (0-31); Albumin Level 3.2 g/dL (3.5-5.0); Alkaline Phosphatase 70 U/L (39-117); Anion Gap 15 (12-20); Aspartate Amino Transferase 19 U/L (5-31); Bilirubin Direct 0.1 mg/dL (0.0-0.5); Bilirubin Total 0.4 mg/dL (0.0-1.0); Blood Urea Nitrogen 30 mg/dL (9-16); Calcium 9.7 mg/dL (8.4-10.2); Carbon Dioxide 36 mmol/L (22-29); Chloride 97 mmol/L (96-108); Creatinine Clr Calc Pharmacy 60.4; Estimated Glomerular Filt Rate > 60; Glucose Random 87 mg/dL (60-115); Magnesium 1.9 mg/dL (1.6-2.6); Potassium 5.5 mmol/L (3.3-5.1); Sodium 142 mmol/L (135-145); Total Protein 6.1 g/dL (6.5-8.0)
[2024-09-13 07:30] LABS: B Type Natriuretic Peptide 216 pg/mL (<100)
[2024-09-13] MEDS: Albuterol/Iprat 2.5/0.5MG 3 ML AMPUL.NEB INHALE ×3 (07:36→14:52)
[2024-09-13] MEDS: Fluticasone/Umeclidinium/Vilanterol 200/62.5/25 BLST.W.DEV 1 PUFF INHALE (07:36)
[2024-09-13 07:37] VITALS: PULSE 64; RESP 18; O2SAT 95
[2024-09-13 08:00] VITALS: BP 162/78; PULSE 63; RESP 16; TEMP 36.4; O2SAT 97
[2024-09-13] MEDS: lisinopriL 10 MG TABLET PO (08:26)
[2024-09-13] MEDS: OLANZapine 2.5 MG TABLET PO (08:26)
[2024-09-13] MEDS: Doxycycline Monohydrate 100 MG CAPSULE PO (08:26)
[2024-09-13] MEDS: Psyllium seed 3.7 GM PACKET PO (08:26)
[2024-09-13] MEDS: Roflumilast 500 MCG TABLET PO (08:26)
[2024-09-13] MEDS: Sertraline HCL 100 MG TABLET PO (08:26)
[2024-09-13] MEDS: Clopidogrel Bisulfate 75 MG TABLET PO (08:26)
[2024-09-13] MEDS: Buprenorphine/Naloxone 8/2 mg FILM 1.5 FILM SUBLINGUAL (08:26)
[2024-09-13] MEDS: Sodium Zirconium Cyclosilicate 10 GM POWD.PACK PO (08:35)
[2024-09-13] MEDS: predniSONE 20 MG TABLET 40 MG PO (08:35)
[2024-09-13] MEDS: Benzonatate 100 MG CAPSULE PO (08:35)
[2024-09-13] MEDS: 0.9 % Sodium Chloride Flush 3 ML SYRINGE IVFLUSH (08:36)
[2024-09-13 10:49] LABS: Anion Gap 14 (12-20); Blood Urea Nitrogen 29 mg/dL (9-16); Calcium 9.4 mg/dL (8.4-10.2); Carbon Dioxide 33 mmol/L (22-29); Chloride 98 mmol/L (96-108); Creatinine Clr Calc Pharmacy 54.7; Estimated Glomerular Filt Rate > 60; Glucose Random 143 mg/dL (60-115); Potassium 3.7 mmol/L (3.3-5.1); Sodium 141 mmol/L (135-145)
[2024-09-13 10:54] VITALS: BP 125/65; PULSE 76; RESP 16; TEMP 36.2; O2SAT 95
--- NOTE | 2024-09-13 11:11 | MHC.CM.PN ---
IMM 09/13/24, PT MEDICALLY CLEARED FOR DC TO [facility] FOR [facility]PT [facility], [facility] FOR BLS TRANSPORT AT 2PM.
[2024-09-13 11:50] VITALS: PULSE 60; RESP 16; O2SAT 89
[2024-09-13] MEDS: cefTRIAXone sodium 1 GM VIAL IVPUSH (12:19)
--- NOTE | 2024-09-13 12:24 | P.DS_ITS ---
DS: Providers Provider Date of Service: 09/13/24 Date of admission: 09/08/24 13:59 Date of discharge: 09/13/24 Primary care physician: Eddie Watkins MD Consults: 09/11/24 09:35 Consult to General Surgery Routine Consulting Provider: [facility] General Surgeons Reason for consultation: burak external hemorrhoid, symptomatic 09/12/24 12:08 Consult to Psychiatry Routine Consulting Provider: [facility] Psych Covering Reason for consultation: hallucinations DS: Diagnosis Discharge Diagnosis (1) Hallucinations, unspecified: Status: Acute (2) Acute exacerbation of chronic obstructive pulmonary disease: Status: Acute (3) Acute on chronic respiratory failure with hypoxia and hypercapnia: Status: Acute (4) Pneumonia: Status: Acute (5) Rectal prolapse: Status: Acute DS: Summary Hospital Course Hospital Course: From the history and physical by the admitting hospitalist, GRAHAM Cantrell, 09/08/24: This is a 68-year-old female hx of COPD on 2-3 L NC, HTN, depression, anxiety, neuropathy, peripheral vascular occlusive disease presents to the emergency department for fatigue, malaise, myalgias, productive cough since last night. She reports she was not feeling well yesterday and at night everything seemed to get worse. Last night she also experienced substernal nonradiating chest pain. She reports that this morning what prompted her to come in to get seen as she felt like she could not breathe on her home 2 L nasal cannula. She denies sick contacts, chills, nausea, vomiting, diarrhea, headache, vision changes 68yo F with COPD on home O2 2L presenting with dyspnea, cough, chest pain, and malaise; admitted to the telemetry unit for hypoxia due to COPD exacerbation. Hospital course by problem: acute/chronic hypoxic/hypercarbic respiratory failure - Treated with IV methylprednisolone plus nebulized bronchodilators, plus doxycycline. Eventually transitioned to prednisone taper to complete after discharge. Oxygen weaned down to 2L via nasal cannula. pneumonia - Treated with ceftriaxone and doxycycline and discharged on cefuroxime plus doxycycline. Blood cultures negative; PCT came down. Recommend repeating CT of the chest in 1 year per Radiology to establish a baseline and demonstrate stability [see CT chest report below]. mood disorder with hallucinations - Due to persistent hallucinations, olanzapine was increased in consultation with Psychiatry. CT of the head showed no acute disease. She should follow up with her psychiatrist in 1 year. Due to weakness and deconditioning, she was discharged to [facility] for short-term rehailibation. Time Attestation Discharge Coordination Time (in mins): 45 Quality: Safe Use of Opioids Does Pt have an Active Cancer Diagnosis on the Problem List?: No Quality: Stroke Does the patient have a stroke diagnosis?: No Physical Exam Vital Signs: Vital Signs: Last Vital Signs Temp 97.1 F 09/13/24 10:54 Pulse 60 09/13/24 11:50 Resp 16 09/13/24 11:50 BP 125/65 09/13/24 10:54 Pulse Ox 95 09/13/24 10:54 O2 Del Method Nasal Cannula 09/13/24 10:54 O2 Flow Rate 2 09/13/24 10:54 Oxygen Flow Rate 4 09/08/24 09:51 BMI result Body Mass Index 19.1 Gen: in no acute distress HEENT: sclera anicteric, moist mucus membranes Neck: supple Lungs: bilateral expiratory wheezing Heart: regular rate and rhythm, no murmurs Abd: soft, non-tender, non-distended Ext: no edema Skin: warm/well-perfused Neuro: alert and oriented x3, no focal findings Psych: appropriate affect DS: Data Data Completed and Pending Completed studies during hospitalization [Text1]: Laboratory Results WBC 5.3 X10*3/uL (4.8-10.8) 09/10/24 08:45 RBC 3.77 X10*6/uL (4.20-5.50) L 09/10/24 08:45 Hgb 11.4 g/dl (12.0-16.0) L 09/10/24 08:45 Hct 36.8 % (37.0-47.0) L 09/10/24 08:45 MCV 97.6 fL (80.0-98.0) 09/10/24 08:45 MCH 30.2 pg (27.0-33.0) 09/10/24 08:45 MCHC 31.0 g/dl (31.0-35.0) 09/10/24 08:45 RDW 14.0 % (11.0-16.0) 09/10/24 08:45 Plt Count 127 X10*3/uL (160-400) L 09/10/24 08:45 MPV 10.6 fL (9.4-12.3) 09/10/24 08:45 Immature Gran % (Auto) 0.4 % (0.0-0.4) 09/10/24 08:45 Neut % (Auto) 88.3 % (45-73) H 09/10/24 08:45 Lymph % (Auto) 6.3 % (20-40) L 09/10/24 08:45 [place] % (Auto) 4.8 % (2-11) 09/10/24 08:45 Eos % (Auto) 0.0 % (0-4) 09/10/24 08:45 Baso % (Auto) 0.2 % (0-2) 09/10/24 08:45 Lymph # (Auto) 0.3 X10*3/uL (1.2-4.9) L 09/10/24 08:45 [place] # (Auto) 0.3 X10*3/uL (0.1-1.2) 09/10/24 08:45 Eos # (Auto) 0.0 X10*3/uL (0.0-0.4) 09/10/24 08:45 Baso # (Auto) 0.0 X10*3/uL (0.0-0.2) 09/10/24 08:45 Abs Immat Gran (auto) 0.02 X10*3/uL (0.00-0.03) 09/10/24 08:45 Absolute Neuts (auto) 4.7 x10*3/uL (2.0-8.3) 09/10/24 08:45 Absolute Nucleated RBC 0.000 X10*3/uL (0.0-0.012) 09/10/24 08:45 Nucleated RBC % (auto) 0.0 /100WBC (0.0-0.2) 09/10/24 08:45 VBG pH 7.38 (7.32-7.43) 09/12/24 06:32 VBG pCO2 69 mmHg 09/12/24 06:32 VBG pO2 46 mmHg 09/12/24 06:32 VBG HCO3 41 mmol/L (22-26) H 09/12/24 06:32 VBG O2 Saturation 74.0 % 09/12/24 06:32 VBG Base Excess 14.1 mmol/L 09/12/24 06:32 Sodium 141 mmol/L (135-145) 09/13/24 10:11 Potassium 3.7 mmol/L (3.3-5.1) D 09/13/24 10:11 Chloride 98 mmol/L (96-108) 09/13/24 10:11 Carbon Dioxide 33 mmol/L (22-29) H 09/13/24 10:11 Anion Gap 14 (12-20) 09/13/24 10:11 BUN 29 mg/dL (9-16) H 09/13/24 10:11 Creatinine 0.76 mg/dL (0.5-1.4) 09/13/24 10:11 Estim Creat Clear Calc 54.7 09/13/24 10:11 Estimated GFR > 60 09/13/24 10:11 Random Glucose 143 mg/dL (60-115) H 09/13/24 10:11 Lactic Acid 1.0 mmol/L (0.5-2.0) 09/08/24 10:39 Calcium 9.4 mg/dL (8.4-10.2) 09/13/24 10:11 Magnesium 1.9 mg/dL (1.6-2.6) 09/13/24 07:00 Total Bilirubin 0.4 mg/dL (0.0-1.0) 09/13/24 07:00 Direct Bilirubin 0.1 mg/dL (0.0-0.5) 09/13/24 07:00 AST 19 U/L (5-31) 09/13/24 07:00 ALT 17 U/L (0-31) 09/13/24 07:00 Alkaline Phosphatase 70 U/L (39-117) 09/13/24 07:00 Ammonia 24 umol/L (13-55) 09/13/24 07:00 Troponin I High Sens 7.1 ng/L (<3.5-17.0) 09/08/24 14:41 B-Natriuretic Peptide 216 pg/mL (<100) H 09/13/24 07:00 Total Protein 6.1 g/dL (6.5-8.0) L 09/13/24 07:00 Albumin 3.2 g/dL (3.5-5.0) L 09/13/24 07:00 Procalcitonin 0.31 ng/mL 09/12/24 06:27 TSH 0.38 uIU/mL (0.32-4.0) 09/08/24 10:14 Urine Color Dark Yellow 09/08/24 20:05 Urine Appearance Clear 09/08/24 20:05 Urine pH 5.5 (5.0-9.0) 09/08/24 20:05 Ur Specific [place] 1.020 (1.005-1.025) 09/08/24 20:05 Urine Protein Trace mg/dL (Neg-Trace) 09/08/24 20:05 Urine Glucose (UA) Negative mg/dL (Negative) 09/08/24 20:05 Urine Ketones Negative mg/dL (Negative) 09/08/24 20:05 Urine Blood Trace (Negative) H 09/08/24 20:05 Urine Nitrite Negative (Negative) 09/08/24 20:05 Ur Leukocyte Esterase Small (1+) (Negative) H 09/08/24 20:05 Urine RBC 0-2 /HPF (0-2) 09/08/24 20:05 Urine WBC 0-5 /HPF (0-5) 09/08/24 20:05 Ur Squamous Epith Cells 3-5 /HPF (0-2) 09/08/24 20:05 Urine Bacteria None Seen (None Seen) 09/08/24 20:05 Hyaline Casts 6-10 /LPF (0-2) 09/08/24 20:05 Urine Opiates Screen Not Detected (Not Detect) 09/08/24 20:05 Ur Buprenorphine Scrn Positive ng/mL (Not Detect) H 09/08/24 20:05 Ur Oxycodone Screen Not Detected ng/mL (Not Detect) 09/08/24 20:05 Urine Methadone Screen Not Detected ng/mL (Not Detect) 09/08/24 20:05 Urine Fentanyl Screen Not Detected (Not Detect) 09/08/24 20:05 Ur Barbiturates Screen Not Detected (Not Detect) 09/08/24 20:05 Ur Phencyclidine Scrn Not Detected (Not Detect) 09/08/24 20:05 Ur Amphetamines Screen Not Detected (Not Detect) 09/08/24 20:05 U Benzodiazepines Scrn POSITIVE (Not Detect) H 09/08/24 20:05 Urine Cocaine Screen Not Detected (Not Detect) 09/08/24 20:05 U Marijuana (THC) Screen Not Detected (Not Detect) 09/08/24 20:05 Respiratory Panel [place] See Note 09/08/24 13:57 Adenovirus (Rapid PCR) Not Detected (Not Detect.) 09/08/24 13:57 B.pert (TEM-PCR) Not Detected (Not Detect.) 09/08/24 13:57 B.parapertussis DNA PCR Not Detected (Not Detect.) 09/08/24 13:57 C. pneumoniae DNA (PCR) Not Detected (Not Detect.) 09/08/24 13:57 Coronavirus OC43 (PCR) Not Detected (Not Detect.) 09/08/24 13:57 Coronavirus HKU1 (PCR) Not Detected (Not Detect.) 09/08/24 13:57 Coronavirus 229E (PCR) Not Detected (Not Detect.) 09/08/24 13:57 Coronavirus NL63 (PCR) Not Detected (Not Detect.) 09/08/24 13:57 Human Metapneumovir PCR Not Detected (Not Detect.) 09/08/24 13:57 Influenza A (RT-PCR) Not Detected (Not Detect.) 09/08/24 13:57 Influenza Type A (PCR) NEGATIVE (Negative) 09/08/24 10:39 Influenza B (RT-PCR) Not Detected (Not Detect.) 09/08/24 13:57 Influenza Type B (PCR) NEGATIVE (Negative) 09/08/24 10:39 M. pneumoniae (PCR) Not Detected (Not Detect.) 09/08/24 13:57 Parainfluenza 1 (PCR) Not Detected (Not Detect.) 09/08/24 13:57 Parainfluenza 2 (PCR) Not Detected (Not Detect.) 09/08/24 13:57 Parainfluenza 3 (PCR) Not Detected (Not Detect.) 09/08/24 13:57 Parainfluenza 4 (PCR) Not Detected (Not Detect.) 09/08/24 13:57 RSV (PCR) Not Detected (Not Detect.) 09/08/24 13:57 RSV RNA Qual (PCR) NEGATIVE (Negative) 09/08/24 10:39 Entero/Rhino (PCR) Not Detected (Not Detect.) 09/08/24 13:57 SARS-CoV-2 RNA (RT-PCR) Not Detected (Not Detect.) 09/08/24 13:57 Impressions Chest X-Ray 09/10/24 13:30 IMPRESSION: 1. Emphysema with extensive underlying chronic interstitial lung disease. Within these confines, no definite acute superimposed disease identified. Subtle pneumonia could easily be obscured by the degree of underlying lung disease. 2. Stellate nodular opacity right upper lobe, suspicious for lung nodule versus foci of scar. Correlation with CT recommended. 3. Enlarged pulmonary artery suggesting pulmonary arterial hypertension. Electronically signed by: Chris Kyle MD 09/10/2024 02:18 PM [facility] CT chest 09/11/24 1. There are areas of pleural/parenchymal scarring and a focus of consolidation in the left upper lobe but no discrete pulmonary nodules. In particular a nodule is not seen in the area in question. please obtain a 1 year follow-up examination to establish a baseline and demonstrate stability. 2. Severe centrilobular emphysema. 3. Bronchitis. 4. Thickened interlobular septa consistent with acute or chronic interstitial disease. Interstitial edema is not excluded. TTE 09/12/24 - The left ventricular systolic function is normal. The calculated ejection fraction is 69% by biplane method. - There is moderate calcification of the aortic valve. There is mild aortic valve stenosis. - There is moderate mitral annular calcification. Discharge Plan Discharge Anticipated Discharge Date/Time: 09/13/24 12:07 Patient Disposition: Xfer SNF Discharge Diagnosis: COPD exacerbation pneumonia acute/chronic hypoxic/hypercarbic respiratory failure mood disorder with hallucinations rectal prolapse Referrals: [facility] [Outside] - 1 Week Eddie Watkins MD [Primary Care Provider] - 1 Week (INPT PULMONARY REHAB) Nolan Sweet MD [Physician] - 1 Month Ella Salazar MD [Physician] - 2 Weeks Discharge Medications: New doxycycline monohydrate 100 mg Capsule 100 mg PO Q12H Qty: 6 0RF cefuroxime axetil 500 mg tablet 500 mg PO BID Qty: 6 0RF prednisone 10 mg tablet 10 mg PO DIRECTED Qty: 20 0RF Rx Instructions: 40 mg daily x 2 days, then 30 mg daily x 2 days, then 20 mg daily x 2 days, then 10 mg daily x 2 days olanzapine 2.5 mg Tablet 2.5 mg PO DAILY Qty: 30 0RF olanzapine 7.5 mg Tablet 7.5 mg PO BEDTIME Qty: 30 0RF Hydrocil Instant Packet 1 packet PO BID Qty: 60 0RF Continued albuterol sulfate 2.5 mg /3 mL (0.083 %) solution for nebulization 2.5 mg inhalation QID PRN (Reason: Wheezing) (DME) Walker with wheels and baske, seat, and break See Rx Instructions .Route .MEDSUPPLY Qty: 1 0RF Rx Instructions: Walker with wheels, break, seat and basket sertraline 100 mg tablet 100 mg PO DAILY 90 Days Qty: 90 0RF (DME) Pant Liners, Large Pad See Rx Instructions .Route Qty: 96 5RF Rx Instructions: Change as needed, up to 3 per day lisinopril 10 mg tablet 10 mg PO DAILY 90 Days Qty: 90 0RF clopidogrel [Plavix] 75 mg tablet 75 mg PO DAILY 90 Days Qty: 90 1RF levothyroxine 125 mcg tablet 125 mcg PO DAILY@0600 Qty: 90 0RF mirtazapine 15 mg tablet 15 mg PO BEDTIME albuterol sulfate [Ventolin HFA] 90 mcg/actuation HFA aerosol inhaler 2 puff INHALATION Q6H PRN (Reason: Shortness Of Breath Or Wheezing) roflumilast 500 mcg tablet 500 mcg PO DAILY meclizine 25 mg Tablet 25 mg PO Q8H PRN (Reason: dizziness) Qty: 30 0RF clonazepam 0.5 mg tablet 0.25 mg PO BID PRN (Reason: Anxiety) buprenorphine-naloxone 8-2 mg film 1.5 film sublingual DAILY Qty: 3 0RF Trelegy Ellipta 200-62.5-25 mcg blister with device 1 ea inhalation DAILY Discontinued olanzapine 5 mg tablet 5 mg PO BEDTIME Discharge Orders: Discharge Order (Routine); Ordered 09/13/24 Ordered By: Laura Watts Diet: Advance to usual diet Activity on Discharge: As tolerated Stand Alone Forms: Patient Portal Discharge page Print Language: Luxembourgish Care Plan Goals: pulmonary health Health Concerns: COPD exacerbation pneumonia acute/chronic hypoxic/hypercarbic respiratory failure mood disorder with hallucinations rectal prolapse Plan of Treatment: discharge to short-term rehabilitation at [facility] prednisone 10 mg tabs, taper as follows: 40 mg (4 tabs) daily x 2 days, then 30 mg (3 tabs) daily x 2 days, then 20 mg (2 tabs) daily x 2 days, then 10 mg (1 tab) daily x 2 days doxycycline 100 mg twice daily for 3 days cefuroxime 500 mg twice daily for 3 days oxygen via nasal cannula, currently 2L, titrate to SaO2 of 88-92% and no greater than 92% follow up with Pulmonology in [address] chest in 1 year take olanzapine 2.5 mg every morning and 7.5 mg every night follow up with your psychiatrist in 1 month take Metamucil as prescribed follow up with General Surgery in 1 month Please follow up with your primary care doctor within 1 week. Return to the hospital if you experience recurrent or worsening symptoms. Assessment: See Discharge Summary.
[2024-09-13 14:52] VITALS: PULSE 75; RESP 16; O2SAT 90
== END 2024-09-13 15:10 | disposition skilled nursing facility (03) | DRG 190 ==
LOC: HO.ED 13:06 → HO.EDOVER 13:59 → HO.IMC 21:53
PROVIDERS: Internal Medicine; Admitting Provider Physician Assistant; Emergency Provider Emergency Medicine; PCP Internal Medicine; Visit Provider Family Medicine
DX: J44.0 Chronic obstructive pulmonary disease with (acute) lower respiratory infection (principal); J18.9 Pneumonia, unspecified organism; J96.21 Acute and chronic respiratory failure with hypoxia; J96.22 Acute and chronic respiratory failure with hypercapnia; F11.20 Opioid dependence, uncomplicated; F33.9 Major depressive disorder, recurrent, unspecified; F05 Delirium due to known physiological condition; J44.1 Chronic obstructive pulmonary disease with (acute) exacerbation; I10 Essential (primary) hypertension; I73.9 Peripheral vascular disease, unspecified; G47.00 Insomnia, unspecified; E03.9 Hypothyroidism, unspecified; K62.3 Rectal prolapse; Z20.822 Contact with and (suspected) exposure to COVID-19; Z99.81 Dependence on supplemental oxygen; Z87.891 Personal history of nicotine dependence; Z79.02 Long term (current) use of antithrombotics/antiplatelets; Z79.51 Long term (current) use of inhaled steroids; Z79.890 Hormone replacement therapy; Z79.899 Other long term (current) drug therapy
CPT/HCPCS: 0241U; 36415; 70450; 71045; 71046; 71250; 80048; 80053; 80076; 80307; 81001; 82140; 82803; 83605; 83735; 83880; 84145; 84443; 84484; 85025; 87040; 87086; 87633; 93005; 93306; 94640; 97162; 97530; 99285; J0696; J1940; J2359; J2919

== ENCOUNTER → 2024-09-08 09:46 | Outpatient (BNV) | payer MEDICARE, MEDICAID, SELFPAY | PROVIDERS: Emergency Provider Emergency Medicine; PCP Internal Medicine; Visit Provider Radiology Diagnostic Radiology | DX: J84.9 Interstitial pulmonary disease, unspecified (principal); R91.1 Solitary pulmonary nodule | CPT/HCPCS: 71045 ==

== ENCOUNTER → 2024-09-08 09:46 | Outpatient (BNV) | payer MEDICARE, MEDICAID, SELFPAY | PROVIDERS: Admitting Provider Physician Assistant; Emergency Provider Emergency Medicine; PCP Internal Medicine; Visit Provider Internal Medicine | DX: R94.31 Abnormal electrocardiogram [ECG] [EKG] (principal) | CPT/HCPCS: 93010 ==

== ENCOUNTER 2024-09-08 13:59 | Outpatient (BNV) | payer MEDICARE, MEDICAID, SELFPAY | END 2024-09-13 13:25 | PROVIDERS: Admitting Provider Physician Assistant; Emergency Provider Emergency Medicine; PCP Internal Medicine; Visit Provider Radiology Diagnostic Radiology | DX: R44.3 Hallucinations, unspecified (principal) | CPT/HCPCS: 70450 ==

== ENCOUNTER 2024-09-08 13:59 | Outpatient (BNV) | payer MEDICARE, MEDICAID, SELFPAY | END 2024-09-10 13:30 | PROVIDERS: Admitting Provider Physician Assistant; Emergency Provider Emergency Medicine; PCP Internal Medicine; Visit Provider Radiology Diagnostic Radiology | DX: J43.9 Emphysema, unspecified (principal) | CPT/HCPCS: 71046 ==

== ENCOUNTER 2024-09-08 13:59 | Outpatient (BNV) | payer MEDICARE, MEDICAID, SELFPAY | END 2024-09-11 09:17 | PROVIDERS: Admitting Provider Physician Assistant; Emergency Provider Emergency Medicine; PCP Internal Medicine; Visit Provider Radiology Diagnostic Radiology | DX: J43.2 Centrilobular emphysema (principal); J20.9 Acute bronchitis, unspecified; J84.9 Interstitial pulmonary disease, unspecified | CPT/HCPCS: 71250 ==

== ENCOUNTER 2024-09-08 13:59 | Outpatient (BNV) | payer MEDICARE, MEDICAID, SELFPAY | END 2024-09-13 11:26 | PROVIDERS: Admitting Provider Physician Assistant; Emergency Provider Emergency Medicine; PCP Internal Medicine; Visit Provider Internal Medicine | DX: I49.1 Atrial premature depolarization (principal); I49.3 Ventricular premature depolarization | CPT/HCPCS: 93010 ==

== ENCOUNTER → 2024-09-08 13:59 | Outpatient (BNV) | payer MEDICARE, MEDICAID, SELFPAY | PROVIDERS: Admitting Provider Physician Assistant; Emergency Provider Emergency Medicine; PCP Internal Medicine; Visit Provider Physician Assistant | DX: J44.1 Chronic obstructive pulmonary disease with (acute) exacerbation (principal) | CPT/HCPCS: 99232 ==

== ENCOUNTER → 2024-09-08 13:59 | Outpatient (BNV) | payer MEDICARE, MEDICAID, SELFPAY | PROVIDERS: Admitting Provider Physician Assistant; Emergency Provider Emergency Medicine; PCP Internal Medicine; Visit Provider Registered Nurse | DX: F29 Unspecified psychosis not due to a substance or known physiological condition (principal) | CPT/HCPCS: 99222 ==

== ENCOUNTER 2024-10-10 20:48 | Inpatient (IN) | payer MEDICARE, MEDICAID, SELFPAY ==
--- NOTE | ~2024-10-10 | XR_ITS ---
EXAMINATION: XR CHEST CLINICAL INFORMATION: Follow up hypoxia COMPARISON: Chest 10/10/2024. CT chest 09/11/2024 TECHNIQUE: Frontal view of the chest was obtained. FINDINGS: The lungs are mildly emphysematous with prominent interstitial markings throughout both lungs likely chronic changes, stable. No acute consolidation or pleural effusion seen. There is a right azygos lobe noted. Heart size and pulmonary vascularity is normal. No gross bony abnormality seen. XR/XR chest 1V IMPRESSION: Emphysema with prominent bilateral interstitial markings likely chronic, unchanged to chest x-ray 10/10/[address] 09/11/2024 Electronically signed by: Juan Carlos Feng MD 10/16/2024 04:28 PM EST
--- NOTE | ~2024-10-10 | XR_ITS ---
CLINICAL HISTORY: SOB 1 view chest x-ray. Comparison: CT/SR - CT CHEST WO IV CON - 09/11/24 09:17 EST CR/LA/SR - XR CHEST 2V - 09/10/24 13:42 EST Findings: There is emphysema. There is mild interstitial prominence which may be accentuated by the emphysema and/or mild interstitial edema. Lungs appear otherwise clear. Cardiomediastinal silhouette is within normal limits. IMPRESSION: Findings as above. This document has been electronically signed by: Josh Li MD on 10/10/2024 22:08:44
[2024-10-10 20:54] VITALS: BP 123/75; PULSE 110; O2SAT 95
[2024-10-10 20:58] VITALS: BP 156/73; PULSE 105; RESP 20; O2SAT 92
[2024-10-10 21:06] VITALS: TEMP 37.1
--- NOTE | 2024-10-10 21:06 | ECG_ITS ---
Test Reason : SOB Blood Pressure : */* mmHG Vent. Rate : 96 BPM Atrial Rate : 96 BPM P-R Int : 108 ms QRS Dur : 78 ms QT Int : 338 ms P-R-T Axes : 76 64 44 degrees QTcB Int : 427 ms Sinus rhythm with marked sinus arrhythmia with short HI Otherwise normal ECG When compared with ECG of 13-Sep-2024 11:26, Premature atrial complexes are no longer Present Vent. rate has increased by 34 bpm QRS duration has decreased Referred By: Generic ED Physician Electronically Signed By: Julio Cesar Viera
[2024-10-10 21:30] LABS: Basophils Percent Auto 0.4 % (0-2); Eosinophils Absolute Auto 0.1 X10*3/uL (0.0-0.4); Eosinophils Percent Auto 0.8 % (0-4); Imm Gran Abs Auto 0.02 X10*3/uL (0.00-0.03); Imm Gran Pct Auto 0.3 % (0.0-0.4); Lymphocytes Absolute Auto 1.1 X10*3/uL (1.2-4.9); MANUAL DIFF FLAG NO; Mean Corpuscular HGB Conc 32.5 g/dl (31.0-35.0); Mean Corpuscular Hemoglobin 30.6 pg (27.0-33.0); Mean Corpuscular Volume 94.1 fL (80.0-98.0); Mean Platelet Volume 9.7 fL (9.4-12.3); Monocytes Absolute Auto 0.5 X10*3/uL (0.1-1.2); Monocytes Percent Auto 6.5 % (2-11); Neutrophils Absolute Auto 5.5 x10*3/uL (2.0-8.3); Platelet Count 165 X10*3/uL (160-400); Red Blood Count 4.25 X10*6/uL (4.20-5.50); Red Cell Distribution Width 14.2 % (11.0-16.0); White Blood Count 7.2 X10*3/uL (4.8-10.8)
[2024-10-10 21:33] LABS: VBG Base Excess 8.2 mmol/L; VBG HCO3 36 mmol/L (22-26); VBG pCO2 64 mmHg; VBG pH 7.35 (7.32-7.43); VBG pO2 45 mmHg
[2024-10-10 21:35] LABS: Venous Blood Gas Refer to POC result
[2024-10-10 21:44] LABS: Alanine Aminotransferase 12 U/L (0-31); Albumin Level 3.7 g/dL (3.5-5.0); Alkaline Phosphatase 60 U/L (39-117); Anion Gap 13 (12-20); Aspartate Amino Transferase 22 U/L (5-31); Bilirubin Total 0.5 mg/dL (0.0-1.0); Blood Urea Nitrogen 17 mg/dL (9-16); Calcium 9.3 mg/dL (8.4-10.2); Carbon Dioxide 32 mmol/L (22-29); Chloride 103 mmol/L (96-108); Creatinine Clr Calc Pharmacy 50.9; Estimated Glomerular Filt Rate > 60; Glucose Random 142 mg/dL (60-115); Magnesium 1.8 mg/dL (1.6-2.6); Potassium 4.1 mmol/L (3.3-5.1); Sodium 144 mmol/L (135-145); Total Protein 6.7 g/dL (6.5-8.0)
[2024-10-10 21:50] LABS: B Type Natriuretic Peptide 12 pg/mL (<100)
[2024-10-10 21:51] LABS: Troponin-I High Sensitivity 5.6 ng/L (<3.5-17.0)
--- OUTSIDE RECORDS SUMMARY | 2024-10-10 21:51 | XMS_ITS | Clinical Summary ---
Author Organization [facility] Address [address] [place] [address] Care Team Providers Care [facility] Adviser Name Role Phone Unavailable Primary Care Provider Unavailabl e Social History Tobacco Use Types Packs/Day Years Used Date Smoking Tobacco: Never Assessed Sex and Gender Information Value Date Recorded Sex Assigned at Not on file Gender Identity Not on file Sexual Orientation Not on file Plan of Treatment Not on file
--- NOTE | 2024-10-10 21:54 | ED.SOB ---
HPI - SOB/Dyspnea General Chief Complaint: Dyspnea Stated Complaint: linda, a-fib 90-150 Time Seen by Provider: 10/10/24 21:45 Source: patient Mode of arrival: ambulatory Limitations: no limitations History of Present Illness ED Provider: DR. Alves HPI Narrative: 69-year-old female history of COPD on 3 L supplemental oxygen 06/03, felt short of breath and difficulty breathing after having a family dinner and felt dizzy with near syncopal feeling, patient had O2 sat of 86% on her baseline 3 L of oxygen patient was given DuoNeb /Solu-Medrol by EMS patient reported slight improvement but still having shortness of breath. No CP, no fever, no chills. Related Data Home Medications ?Medication ?Instructions ?Recorded ?Confirmed albuterol sulfate 2.5 mg/3 mL 2.5 mg inhalation QID PRN Wheezing 08/25/20 09/08/24 (0.083 %) solution for nebulization fluticasone fur. 200 mcg-umeclid 1 ea inhalation DAILY 01/05/24 09/08/24 62.5 mcg-vilant 25 mcg inhalat.powder (Trelegy Ellipta) albuterol sulfate 90 mcg/actuation 2 puff inhalation Q6H PRN 06/16/24 09/08/24 aerosol inhaler (Ventolin HFA) Shortness Of Breath Or Wheezing mirtazapine 15 mg tablet 15 mg PO BEDTIME 06/16/24 09/08/24 roflumilast 500 mcg tablet 500 mcg PO DAILY 06/16/24 09/08/24 clonazepam 0.5 mg tablet 0.25 mg PO BID PRN Anxiety 09/08/24 09/08/24 Previous Rx's ?Medication ?Instructions ?Recorded Walker with wheels and baske, #1 ea 05/04/21 seat, and break sertraline 100 mg tablet 100 mg PO DAILY 90 days #90 tabs 02/28/23 incontinence pad, liner, disp #96 ea 02/07/24 (Pant Liners, Large pads) meclizine 25 mg tablet 25 mg PO Q8H PRN dizziness #30 tabs 06/21/24 lisinopril 10 mg tablet 10 mg PO DAILY 90 days #90 tabs 07/08/24 clopidogrel 75 mg tablet (Plavix) 75 mg PO DAILY bilateral leg 07/09/24 stents 90 days #90 tabs buprenorphine 8 mg-naloxone 2 mg 1.5 film sublingual DAILY #3 ea 07/29/24 sublingual film levothyroxine 125 mcg tablet 125 mcg PO DAILY@0600 #90 tabs 08/29/24 cefuroxime axetil 500 mg tablet 500 mg PO BID #6 tabs 09/13/24 doxycycline monohydrate 100 mg 100 mg PO Q12H #6 caps 09/13/24 capsule olanzapine 2.5 mg tablet 2.5 mg PO DAILY #30 tabs 09/13/24 olanzapine 7.5 mg tablet 7.5 mg PO BEDTIME #30 tabs 09/13/24 prednisone 10 mg tablet 10 mg PO DIRECTED #20 tabs 09/13/24 psyllium (Hydrocil Instant oral 1 packet PO BID #60 ea 09/13/24 packet) Allergies Allergy/AdvReac Type Severity Reaction Status Date / Time No Known Allergies Allergy Verified 10/10/24 21:04 Review of Systems Review of Systems: All other systems are reviewed and are negative Constitutional: Reports as per HPI and Reports no additional constitutional complaints Eyes: Reports as per HPI and Reports no additional eye complaints Reports system reviewed and no additional complaints, except as documented Cardiovascular: Reports as per HPI and Reports no additional cardiovascular complaints Respiratory: Reports as per HPI and Reports no additional respiratory complaints Gastrointestinal: Reports as per HPI and Reports no additional gastrointestinal complaints Genitourinary: Reports no additional female genitourinary complaints Musculoskeletal: Reports no additional musculoskeletal complaints Skin/Breast: Reports system reviewed and no additional complaints, except as docu Psychiatric: Reports no additional psychiatric complaints Endocrine: Reports no additional endocrine complaints Hematologic/Lymphatic: Reports no additional hematologic/lymphatic complaints Allergic/Immunologic: Reports no additional allergic/immunologic complaints Reports system reviewed and no additional complaints, except as documented and Reports Abnormal speech present [facility] Past Medical History Medical History Hallucinations, unspecified Hypothyroidism Hypertension Anxiety Peripheral vascular occlusive disease Rectal prolapse Acute and chronic respiratory failure with hypercapnia Sepsis Pneumonia Acute exacerbation of chronic obstructive pulmonary disease (COPD) Hypertension, essential Depression, major, recurrent O2 dependent COPD, severe Surgical History History of surgery Amputated toe Hx of cholecystectomy History of appendectomy Family History Family History Father No problems noted. Mother Stomach cancer Brother No problems noted. Brother No problems noted. Brother No problems noted. Brother No problems noted. Brother No problems noted. Brother No problems noted. Sister No problems noted. Sister No problems noted. Sister No problems noted. Sister No problems noted. Social History Social History Household Members: Family and Children Household Members Other:: daughter, Housing: House Do you presently have visiting nurse or other home services: No (will be getting VNA) Alcohol intake: never Comment: refusing for staff to remain with patient in bathroom Patient Tobacco Use Status: Former Tobacco user Tobacco use type: Cigarette Cigarettes Per Day: 3 Smoked in Last 30 Days: Yes e-Cigarette/Vaping Use: Never Used Use of substances other than those prescribed or required for medical reasons: No Substance Use Type: Marijuana Advance Directives: No Advance Directives Information Provided: Yes Do you have a plan to hurt others: No Plan service: No Current occupational status: retired and disabled Cognitive needs: No Hearing needs: No Vision needs: No Physical Exam Vital Signs: Vital Signs: Last Vital Signs Temp 98.5 F 10/10/24 22:54 Pulse 100 10/10/24 22:54 Resp 15 10/10/24 22:54 BP 112/62 10/10/24 22:54 Pulse Ox 94 10/10/24 22:54 O2 Del Method Nasal Cannula 10/10/24 22:54 O2 Flow Rate 3 10/10/24 22:54 Oxygen Flow Rate 3 10/10/24 20:58 BMI result Body Mass Index 20.0 Vital signs have been reviewed and appear to be correct. Blood pressure elevated. Heart rate normal. Respiratory rate normal. Temperature normal. Oxygen saturation normal. Appearance: Alert. Oriented X3. No acute distress. Head: Normal external exam. Normocephalic. Atraumatic. No Martinez signs noted. No raccoon eyes noted Eyes: PERRLA. EOMI. Conjunctiva and sclera normal. Eyelids normal. ENT: TM's Normal. Pharynx normal. Uvula midline. Moist mucous membranes. No trismus noted. No drooling noted. No muffled voice noted. Neck: Normal inspection. Neck supple. FROM. No adenopathy. Thyroid Normal. No meningeal signs. No neck mass noted. CVS: Normal heart rate and rhythm. Heart sound normal. No murmurs noted. Pulses normal throughout. Respiratory: No respiratory distress. Decreased breathing sound bilaterally, expiratory wheezing with prolonged expiration.Chest nontender. No accessory muscle usage noted or decreased air movement noted. Abdomen: Soft and nontender. Bowel sounds normal in all 4 quadrants. No distention noted. No organomegaly noted. No visible injury noted. Back: No CVA tenderness. Full range of motion noted. Skin: Skin warm and dry. Normal skin color. Normal skin turgor. No rashes/lesions/lacerations noted. Extremities: No lower extremity edema. Extremities exhibit normal range of motion. Extremities nontender. Neuro: Oriented X 3. Cranial nerve exam: II-XII are grossly intact No motor deficit. No sensory deficit. Reflexes normal. Course Reevaluation(s) Reevaluation #1: COPD exacerbation with hypoxia on 3 L of oxygen. Continue with bronchodilator/ Solu-Medrol/magnesium. And admit. Time: 23:38 Medications Administered Discontinued Medications Generic Name Dose Route Start Last Admin Trade Name Freq PRN Reason Stop Dose Admin Albuterol Sulfate 2.5 mg/ 0 mg 10/10/24 22:05 10/10/24 22:07 Albuterol/Ipratropium 3 ml INHALE 10/10/24 22:06 1 dose ONCE ONE Administration Magnesium Sulfate/Dextrose 1 gm in 100 mls @ 100 mls/hr 10/10/24 21:51 10/10/24 23:07 Magnesium Sulfate/D5w IV 10/10/24 22:50 Infused ONCE ONE Infusion Methylprednisolone Sodium Succinate 125 mg 10/10/24 21:51 10/10/24 22:12 Methylprednisolone Sod Succ 125 Mg/2 Ml Vial IVPUSH 10/10/24 21:52 125 mg ONCE ONE Administration Medical Decision Making Differential Diagnosis Differential Diagnoses: The differential diagnosis associated with the presentation includes ( Pneumonia, pneumothorax, pleural effusion, COVID-19 infection, influenza a, RSV, CHF, ACS , electrolyte derangement, severe anemia.) Admission/Observation Consideration of admission/observation: Escalation of care including admission/observation considered Consult Healthcare Provider Management of the patient was discussed with: Hospitalist ( Dr. Aden) Lab Data MDM Lab Attestation statement: I reviewed the patient's lab results. 10/10/24 21:22 10/10/24 21:22 Labs: Lab Results 10/10/24 10/10/24 Range/Units 21:22 21:29 WBC 7.2 (4.8-10.8) X10*3/uL RBC 4.25 D (4.20-5.50) X10*6/uL Hgb 13.0 D (12.0-16.0) g/dl Hct 40.0 D (37.0-47.0) % MCV 94.1 (80.0-98.0) fL MCH 30.6 (27.0-33.0) pg MCHC 32.5 (31.0-35.0) g/dl RDW 14.2 (11.0-16.0) % Plt Count 165 D (160-400) X10*3/uL MPV 9.7 (9.4-12.3) fL Immature Gran % (Auto) 0.3 (0.0-0.4) % Neut % (Auto) 77.0 H (45-73) % Lymph % (Auto) 15.0 L (20-40) % [place] % (Auto) 6.5 (2-11) % Eos % (Auto) 0.8 (0-4) % Baso % (Auto) 0.4 (0-2) % Lymph # (Auto) 1.1 L (1.2-4.9) X10*3/uL [place] # (Auto) 0.5 (0.1-1.2) X10*3/uL Eos # (Auto) 0.1 (0.0-0.4) X10*3/uL Baso # (Auto) 0.0 (0.0-0.2) X10*3/uL Abs Immat Gran (auto) 0.02 (0.00-0.03) X10*3/uL Absolute Neuts (auto) 5.5 (2.0-8.3) x10*3/uL Absolute Nucleated RBC 0.000 (0.0-0.012) X10*3/uL Nucleated RBC % (auto) 0.0 (0.0-0.2) /100WBC VBG pH 7.35 (7.32-7.43) VBG pCO2 64 mmHg VBG pO2 45 mmHg VBG HCO3 36 H (22-26) mmol/L VBG O2 Saturation 70.0 % VBG Base Excess 8.2 mmol/L Sodium 144 (135-145) mmol/L Potassium 4.1 (3.3-5.1) mmol/L Chloride 103 (96-108) mmol/L Carbon Dioxide 32 H (22-29) mmol/L Anion Gap 13 (12-20) BUN 17 H (9-16) mg/dL Creatinine 0.82 (0.5-1.4) mg/dL Estim Creat Clear Calc 50.9 Estimated GFR > 60 Random Glucose 142 H (60-115) mg/dL Calcium 9.3 D (8.4-10.2) mg/dL Magnesium 1.8 (1.6-2.6) mg/dL Total Bilirubin 0.5 (0.0-1.0) mg/dL AST 22 (5-31) U/L ALT 12 (0-31) U/L Alkaline Phosphatase 60 (39-117) U/L Troponin I High Sens 5.6 (<3.5-17.0) ng/L B-Natriuretic Peptide 12 (<100) pg/mL Total Protein 6.7 (6.5-8.0) g/dL Albumin 3.7 (3.5-5.0) g/dL Independent Interpretation I performed an independent interpretation of an: Plain X-Ray ( chest:There is emphysema. There is mild interstitial prominence which may be accentuated by the emphysema and/or mild interstitial edema. Lungs appear otherwise clear. Cardiomediastinal silhouette is within normal limits.) Radiology Impression Discussion of test interpretation with radiology: I have reviewed the radiologist's reading. Chronic Conditions Patient?s care impacted by: Other ( COPD exacerbation, cigarette smoking history.) Discharge Plan Discharge Clinical Impression: Acute exacerbation of chronic obstructive pulmonary disease Patient Disposition: Admitted As Inpatient Print Language: Turkish
[2024-10-10 22:06] VITALS: PULSE 100; RESP 20; O2SAT 94
[2024-10-10] MEDS: Albuterol Sulfate 2.5 MG, Albuterol/Iprat 2.5/0.5MG 3 ML 3 ML INHALE (22:07)
[2024-10-10] MEDS: methylPREDNISolone Sod Succ 125 MG/2 ML VIAL IVPUSH (22:12)
[2024-10-10] MEDS: Magnesium Sulfate/D5W 1 GM/100 ML PIGGYBACK IV (22:12)
[2024-10-10 22:54] VITALS: BP 112/62; PULSE 100; RESP 15; TEMP 36.9; O2SAT 94
[2024-10-11] VITALS (11 sets, daily range): BP systolic 86–151; BP diastolic 53–72; PULSE 73–97; RESP 16–20; TEMP 36.3–36.9; O2SAT 88–98; BMI 19.8
--- NOTE | 2024-10-11 01:03 | PM.IMHP ---
History of Present Illness Date of Service: 10/11/24 Chief Complaint: Dyspnea This is a 69-year-old female with pertinent history of chronic hypoxemic respiratory failure due to COPD on 2-3 L supplemental oxygen, mood disorder, hypertension, hypothyroidism who presents to the emergency department for evaluation of dyspnea. Patient states her symptoms started 1-2 days prior to presentation. On the day of presentation she was having wheezing, nonproductive cough and dyspnea which is worse with exertion. Patient also had a panic attack where she could not breathe. No orthopnea PND. No fever, chills, chest pain, palpitations, abdominal pain, changes in urinary or bowel habits. In the emergency department, patient wheezing despite DuoNeb treatment and systemic steroid. Review of Systems Constitutional: Constitutional: Reports fatigue and Reports malaise Cardiovascular: Cardiovascular: Reports dyspnea on exertion Respiratory: Respiratory: Reports cough, Reports dyspnea on exertion and Reports wheezing Gastrointestinal: Gastrointestinal: Reports no additional gastrointestinal complaints Genitourinary: Genitourinary: Reports no additional female genitourinary complaints Psychiatric: Psychiatric: Reports anxiety and Reports panic attacks Endocrine: Endocrine: Reports fatigue Allergic/Immunologic: Allergic/Immunologic: Reports wheezing [facility] Medical History Hallucinations, unspecified Hypothyroidism Hypertension Anxiety Peripheral vascular occlusive disease Rectal prolapse Acute and chronic respiratory failure with hypercapnia Sepsis Pneumonia Acute exacerbation of chronic obstructive pulmonary disease (COPD) Hypertension, essential Depression, major, recurrent O2 dependent COPD, severe Family History Father No problems noted. Mother Stomach cancer Brother No problems noted. Brother No problems noted. Brother No problems noted. Brother No problems noted. Brother No problems noted. Brother No problems noted. Sister No problems noted. Sister No problems noted. Sister No problems noted. Sister No problems noted. Surgical History History of surgery Amputated toe Hx of cholecystectomy History of appendectomy Social History Household Members: Family and Children Household Members Other:: daughter, Housing: House Do you presently have visiting nurse or other home services: No (will be getting VNA) Alcohol intake: never Comment: refusing for staff to remain with patient in bathroom Patient Tobacco Use Status: Former Tobacco user Tobacco use type: Cigarette Cigarettes Per Day: 3 Smoked in Last 30 Days: Yes e-Cigarette/Vaping Use: Never Used Use of substances other than those prescribed or required for medical reasons: No Substance Use Type: Marijuana Advance Directives: No Advance Directives Information Provided: Yes Do you have a plan to hurt others: No Plan service: No Current occupational status: retired and disabled Cognitive needs: No Hearing needs: No Vision needs: No Meds Allergies Allergy/AdvReac Type Severity Reaction Status Date / Time No Known Allergies Allergy Verified 10/10/24 21:04 Home Medications ?Medication ?Instructions ?Recorded ?Confirmed ?Last Taken ?Type albuterol sulfate 2.5 mg/3 mL 2.5 mg inhalation QID PRN Wheezing 08/25/20 10/11/24 Unknown History (0.083 %) solution for nebulization fluticasone fur. 200 mcg-umeclid 1 ea inhalation DAILY 01/05/24 10/11/24 10/10/24 History 62.5 mcg-vilant 25 mcg inhalat.powder (Trelegy Ellipta) albuterol sulfate 90 mcg/actuation 2 puff inhalation Q6H PRN 06/16/24 10/11/24 Unknown History aerosol inhaler (Ventolin HFA) Shortness Of Breath Or Wheezing mirtazapine 15 mg tablet 15 mg PO BEDTIME 06/16/24 10/11/24 10/09/24 History roflumilast 500 mcg tablet 500 mcg PO DAILY 06/16/24 10/11/24 10/10/24 History clonazepam 0.5 mg tablet 0.25 mg PO BID PRN Anxiety 09/08/24 10/11/24 10/10/24 History olanzapine 2.5 mg tablet 5 mg PO DAILY 10/11/24 10/11/24 10/10/24 History Physical Exam Vital Signs and Narrative: Vital Signs: Last Vital Signs Temp 98.5 F 10/10/24 22:54 Pulse 100 10/10/24 22:54 Resp 15 10/10/24 22:54 BP 112/62 10/10/24 22:54 Pulse Ox 94 10/10/24 22:54 O2 Del Method Nasal Cannula 10/10/24 22:54 O2 Flow Rate 3 10/10/24 22:54 Oxygen Flow Rate 3 10/10/24 20:58 BMI result Body Mass Index 20.0 Middle-aged female lying in bed in mild distress Neck supple, no JVD Regular rate and rhythm, S1-S2 heard Bilateral wheezing present Abdomen soft nontender, no guarding, no rigidity Patient is awake, alert and oriented to self, place, time and person ; no focal motor deficit Psych: Anxious No pedal edema Results Labs 10/10/24 21:22 10/10/24 21:22 Labs: Laboratory Results - last 24 hr 10/10/24 10/10/24 21:22 21:29 MCV 94.1 MCH 30.6 MCHC 32.5 RDW 14.2 Plt Count 165 D MPV 9.7 Immature Gran % (Auto) 0.3 Neut % (Auto) 77.0 H Lymph % (Auto) 15.0 L [place] % (Auto) 6.5 Eos % (Auto) 0.8 Baso % (Auto) 0.4 Lymph # (Auto) 1.1 L [place] # (Auto) 0.5 Eos # (Auto) 0.1 Baso # (Auto) 0.0 Abs Immat Gran (auto) 0.02 Absolute Neuts (auto) 5.5 Absolute Nucleated RBC 0.000 Nucleated RBC % (auto) 0.0 VBG pH 7.35 VBG pCO2 64 VBG pO2 45 VBG HCO3 36 H VBG O2 Saturation 70.0 VBG Base Excess 8.2 Anion Gap 13 Estim Creat Clear Calc 50.9 Estimated GFR > 60 Random Glucose 142 H Calcium 9.3 D Magnesium 1.8 Total Bilirubin 0.5 AST 22 ALT 12 Alkaline Phosphatase 60 B-Natriuretic Peptide 12 Total Protein 6.7 Albumin 3.7 Assessment and Plan (1) Acute exacerbation of chronic obstructive pulmonary disease: Status: Acute Plan This is a 69-year-old female with pertinent history of chronic hypoxemic respiratory failure due to COPD on 2-3 L supplemental oxygen, mood disorder, hypertension, hypothyroidism who presents to the emergency department for evaluation of dyspnea. #. Acute exacerbation of COPD: Patient has chronic hypoxemic respiratory failure and is on 2-3 L supplemental oxygen at baseline. Will admit patient with scheduled, p.r.n. DuoNebs and systemic steroids. Continue home inhaler #. Mood disorder: Continue home mood stabilizers #. Hypertension: Continue home antihypertensives #. Hypothyroidism: On Synthroid Med rec pending DVT prophylaxis: Lovenox Full code. Discussed with patient at bedside Quality Stroke Does the patient have a stroke diagnosis?: No VTE Prior VTE?: No VTE Risk Level:: Medical - moderate - high VTE Device Contraindication: Treatment Not Indicated VTE Drug Contraindication: N/A - Med Ordered
[2024-10-11] MEDS: Enoxaparin Sodium 40 MG/0.4 ML SYRINGE SUBCUT (01:21)
[2024-10-11] MEDS: LORazepam 2 MG/ML VIAL 1 MG IVPUSH (01:49)
[2024-10-11] MEDS: Lactated Ringers 1,000 ML 999 ML IV (01:50)
[2024-10-11] MEDS: clonazePAM 0.5 MG TABLET 0.25 MG PO ×2 (03:30→12:45)
[2024-10-11 04:56] LABS: Basophils Percent Auto 0.2 % (0-2); Hematocrit 35.1 % (37.0-47.0); Hemoglobin 11.2 g/dl (12.0-16.0); Imm Gran Abs Auto 0.02 X10*3/uL (0.00-0.03); Imm Gran Pct Auto 0.4 % (0.0-0.4); Lymphocytes Absolute Auto 0.3 X10*3/uL (1.2-4.9); Lymphocytes Percent Auto 5.5 % (20-40); MANUAL DIFF FLAG SCAN; Mean Corpuscular HGB Conc 31.9 g/dl (31.0-35.0); Mean Corpuscular Hemoglobin 30.2 pg (27.0-33.0); Mean Corpuscular Volume 94.6 fL (80.0-98.0); Mean Platelet Volume 9.9 fL (9.4-12.3); Monocytes Absolute Auto 0.1 X10*3/uL (0.1-1.2); Monocytes Percent Auto 1.2 % (2-11); Neutrophils Absolute Auto 4.5 x10*3/uL (2.0-8.3); Neutrophils Percent Auto 92.7 % (45-73); Platelet Count 130 X10*3/uL (160-400); Red Blood Count 3.71 X10*6/uL (4.20-5.50); Red Cell Distribution Width 14.1 % (11.0-16.0); SCAN SMEAR FLAG 1; White Blood Count 4.9 X10*3/uL (4.8-10.8)
[2024-10-11 05:15] LABS: Anion Gap 13 (12-20); Blood Urea Nitrogen 22 mg/dL (9-16); Carbon Dioxide 26 mmol/L (22-29); Chloride 105 mmol/L (96-108); Creatinine Clr Calc Pharmacy 55.7; Estimated Glomerular Filt Rate > 60; Glucose Random 154 mg/dL (60-115); Potassium 4.7 mmol/L (3.3-5.1); Sodium 139 mmol/L (135-145)
[2024-10-11 05:20] LABS: SLIDE REVIEW VERIFIED
[2024-10-11] MEDS: Albuterol/Iprat 2.5/0.5MG 3 ML AMPUL.NEB INHALE ×4 (07:35→19:28)
--- NOTE | 2024-10-11 08:21 | HO.PM.IMPN ---
Subjective Subjective Date of Service: 10/11/24 Interval History: sob Physical Exam Vital Signs: Vital Signs: Last Vital Signs Temp 98.5 F 10/11/24 06:38 Pulse 86 10/11/24 07:36 Resp 20 10/11/24 07:36 BP 137/72 10/11/24 06:38 Pulse Ox 97 10/11/24 06:38 O2 Del Method Nasal Cannula 10/11/24 06:38 O2 Flow Rate 3 10/11/24 06:38 Oxygen Flow Rate 3 10/10/24 20:58 BMI result Body Mass Index 20.0 General: AO X 3, sob Resp: wheezing bilateral, accessory muscles used CVS: S1,S2,RRR GI: soft, non tender, non distended Neuro: motor grossly intact, alert, tremulous Psych: appropriate affect, appropriate insight Objective Data Active Medications Acetaminophen (Acetaminophen 325 Mg Tablet) 650 mg PO Q6H PRN PRN Reason: Pain, Mild 1-3,fever,headache Albuterol/Ipratropium (Albuterol/Iprat 2.5/0.5mg 3 Ml Ampul.Neb) 3 ml INHALE Q4H PRN PRN Reason: Shortness of Breath/Wheezing Albuterol/Ipratropium (Albuterol/Iprat 2.5/0.5mg 3 Ml Ampul.Neb) 3 ml INHALE RQ4H WHILE AWAKE [facility] Last Admin: 10/11/24 07:35 Dose: 3 ml Documented By: JENNIFER Buprenorphine/Naloxone (Buprenorphine/Naloxone 8/2 Mg Film) 1.5 film SUBLINGUAL DAILY [facility] Calcium Carbonate (Calcium Carbonate 750 Mg Tab.Chew) 750 mg PO Q4H PRN PRN Reason: Heartburn Clonazepam (Clonazepam 0.5 Mg Tablet) 0.25 mg PO BID PRN PRN Reason: Anxiety Clopidogrel Bisulfate (Clopidogrel Bisulfate 75 Mg Tablet) 75 mg PO DAILY [facility] Enoxaparin Sodium (Enoxaparin Sodium 40 Mg/0.4 Ml Syringe) 40 mg SUBCUT Q24H [facility] Last Admin: 10/11/24 01:21 Dose: 40 mg Documented By: RHIANNONOPEAndrea Fluticasone/Umeclidinium/Vilanterol (Fluticasone/Umeclidinium/Vilanterol 200/62.5/25 Blst.W.Dev) puff INHALE DAILY [facility] Levothyroxine Sodium (Levothyroxine Sodium 125 Mcg Tablet) 125 mcg PO DAILY@0600 [facility] Lisinopril (Lisinopril 10 Mg Tablet) 10 mg PO DAILY [facility]; Protocol Magnesium Hydroxide (Milk Of Magnesia 30 Ml Oral.Susp) 30 ml PO DAILY PRN PRN Reason: Constipation Meclizine HCl (Meclizine Hcl 25 Mg Tablet) 25 mg PO Q8H PRN PRN Reason: dizziness Melatonin (Melatonin 3 Mg Tablet) 6 mg PO BEDTIME PRN PRN Reason: Insomnia Mirtazapine (Mirtazapine 15 Mg Tablet) 15 mg PO BEDTIME [facility] Olanzapine (Olanzapine 5 Mg Tablet) 5 mg PO DAILY [facility] Olanzapine (Olanzapine 7.5 Mg Tablet) 7.5 mg PO BEDTIME [facility] Ondansetron HCl (Ondansetron Hcl 4 Mg/2 Ml Vial) 4 mg IVPUSH Q8H PRN PRN Reason: Nausea and Vomiting Prednisone (Prednisone 20 Mg Tablet) 40 mg PO DAILY [facility] Roflumilast (Roflumilast 500 Mcg Tablet) 500 mcg PO DAILY [facility] Sertraline HCl (Sertraline Hcl 100 Mg Tablet) 100 mg PO DAILY [facility] Sodium Chloride (0.9 % Sodium Chloride Flush 3 Ml Syringe) 3 ml IVFLUSH QSHIFT [facility] Labs 10/11/24 04:34 10/11/24 04:34 Labs: Laboratory Results - last 24 hr 10/10/24 10/10/24 10/11/24 21:22 21:29 04:34 MCV 94.1 94.6 MCH 30.6 30.2 MCHC 32.5 31.9 RDW 14.2 14.1 Plt Count 165 D 130 L MPV 9.7 9.9 Immature Gran % (Auto) 0.3 0.4 Neut % (Auto) 77.0 H 92.7 H Lymph % (Auto) 15.0 L 5.5 L [place] % (Auto) 6.5 1.2 L Eos % (Auto) 0.8 0.0 Baso % (Auto) 0.4 0.2 Lymph # (Auto) 1.1 L 0.3 L [place] # (Auto) 0.5 0.1 Eos # (Auto) 0.1 0.0 Baso # (Auto) 0.0 0.0 Abs Immat Gran (auto) 0.02 0.02 Absolute Neuts (auto) 5.5 4.5 Absolute Nucleated RBC 0.000 0.000 Nucleated RBC % (auto) 0.0 0.0 Smear Tech's Comments VERIFIED VBG pH 7.35 VBG pCO2 64 VBG pO2 45 VBG HCO3 36 H VBG O2 Saturation 70.0 VBG Base Excess 8.2 Anion Gap 13 13 Estim Creat Clear Calc 50.9 55.7 Estimated GFR > 60 > 60 Random Glucose 142 H 154 H Calcium 9.3 D 9.0 Magnesium 1.8 Total Bilirubin 0.5 AST 22 ALT 12 Alkaline Phosphatase 60 B-Natriuretic Peptide 12 Total Protein 6.7 Albumin 3.7 Assessment and Plan (1) COPD, severe: Status: Acute Plan 69F PMH chronic hypoxic and hypercapnic respiratory failure due to COPD on 2-3 L home O2, opiate dependence, mood disorder, hypertension, hypothyroid, peripheral vascular disease presented with shortness of breath Chronic hypoxic and hypercapnic respiratory failure due to COPD with acute decompensation Check viral swabs, steroids, DuoNebs Opiate dependence Continue Suboxone Mood disorder Continue olanzapine, clonazepam Hypertension Lisinopril Peripheral vascular disease Continue Plavix Full code DVT prophylaxis with Lovenox reason for continued hospitalization: Continues to be short of breath using accessory muscles and wheezing Quality Stroke Does the patient have a stroke diagnosis?: No VTE Prior VTE?: No VTE Risk Level:: Medical - moderate - high VTE Device Contraindication: Treatment Not Indicated VTE Drug Contraindication: N/A - Med Ordered
--- NOTE | 2024-10-11 08:30 | PHA.MEDREC ---
Addendum entered by Joselyn Cedeno RPh 10/11/24 08:49: Clonazepam 0.5mg not 50mg. Reviewed by [facility] Original Note: Pharmacy Consult ? Medication Reconciliation Pharmacy has completed the medication reconciliation. Spoke with patient and she confirmed her medications. Patient confirmed her Buprenorphine 12-3mg films once a day and stated she ran out of them this week and and stated she has a Dr's appointment on Monday to see if he would refill it, looking in claims the patient got a 14 day supply of that on 10/05. She also confirmed the Clonazepam and confirmed it is a 50mg dose and she takes 1 tablet daily as needed for anxiety. She confirmed her Dr increased the Olanzapine from 5mg tabs to 7.5mg tabs once daily at bedtime in the last week. She stated she stopped taking the Prednisone regimen about 4 days ago due to feeling better and thinking she didn't need to take it anymore. She confirmed with me she has not taken any medications since Monday.
[2024-10-11] MEDS: OLANZapine 5 MG TABLET PO (09:04)
[2024-10-11] MEDS: predniSONE 20 MG TABLET 40 MG PO (09:04)
[2024-10-11] MEDS: Buprenorphine/Naloxone 8/2 mg FILM 1.5 FILM SUBLINGUAL (09:04)
[2024-10-11] MEDS: lisinopriL 10 MG TABLET PO (09:04)
[2024-10-11] MEDS: Clopidogrel Bisulfate 75 MG TABLET PO (09:04)
[2024-10-11] MEDS: 0.9 % Sodium Chloride Flush 3 ML SYRINGE IVFLUSH ×3 (09:07→21:29)
--- NOTE | 2024-10-11 09:33 | MHC.CM.PN ---
CMM ATTEMPTED TO MEET W/PT HOWEVER PT HAS NOT ARRIVED TO UNIT, CM TO REVISIT.
[2024-10-11] MEDS: Roflumilast 500 MCG TABLET PO (11:33)
[2024-10-11] MEDS: Sertraline HCL 100 MG TABLET PO (11:34)
[2024-10-11] MEDS: Fluticasone/Umeclidinium/Vilanterol 200/62.5/25 BLST.W.DEV 1 PUFF INHALE (11:53)
--- NOTE | 2024-10-11 13:43 | MHC.CM.PN ---
IMM 10/11/24, PT W/COPD EXAC, PT REPORTS SHE NOW LIVES W/HER SISTER LETICIA, ADDRESS CORRECT IN EXPANSE, PT REPORTS SHE IS [place]DEP AT [place], HAS HOME O2 2LNC AT [place] AND USES A WALKER, PT CURRENTLY HAS NO HOME SERVICES AND REPORTS SHE WOULD DECLINE SN/PT AT HOME HOWEVR IF NEEDED WOULD GO TO STR AT [facility] AGAIN IF NEEDED. PT VERIFIES PCP AND HCP ON FILE, PT DOES REPORT SHE WILL CONTACT HER NIECE MALLY OVER W/E AND ASK FOR CM IF SHE WANTS TO CHANGE HER HCP.
[2024-10-11] MEDS: Lactated Ringers 500 ML IV (20:36)
[2024-10-11 21:17] LABS: Influenza A PCR NEGATIVE (Negative); Influenza B PCR NEGATIVE (Negative); Resp Syncy Virus RNA Qual PCR NEGATIVE (Negative); SARS COV2 PCR INHOUSE NEGATIVE (Negative)
[2024-10-11] MEDS: OLANZapine 7.5 MG TABLET PO (21:29)
[2024-10-11] MEDS: Mirtazapine 15 MG TABLET PO (21:29)
[2024-10-12] VITALS (10 sets, daily range): BP systolic 102–157; BP diastolic 58–80; PULSE 75–93; RESP 14–22; TEMP 36.2–36.7; O2SAT 95–99
[2024-10-12] MEDS: Enoxaparin Sodium 40 MG/0.4 ML SYRINGE SUBCUT (03:56)
[2024-10-12] MEDS: clonazePAM 0.5 MG TABLET 0.25 MG PO (03:56)
[2024-10-12 07:47] LABS: Hematocrit 32.5 % (37.0-47.0); Hemoglobin 10.2 g/dl (12.0-16.0); Mean Corpuscular HGB Conc 31.4 g/dl (31.0-35.0); Mean Corpuscular Hemoglobin 30.1 pg (27.0-33.0); Mean Corpuscular Volume 95.9 fL (80.0-98.0); Red Blood Count 3.39 X10*6/uL (4.20-5.50); White Blood Count 5.7 X10*3/uL (4.8-10.8)
[2024-10-12 07:53] LABS: Platelet Count 98 X10*3/uL (160-400)
[2024-10-12 08:05] LABS: Anion Gap 11 (12-20); Blood Urea Nitrogen 17 mg/dL (9-16); Calcium 8.4 mg/dL (8.4-10.2); Carbon Dioxide 25 mmol/L (22-29); Chloride 107 mmol/L (96-108); Creatinine Clr Calc Pharmacy 60.6; Estimated Glomerular Filt Rate > 60; Glucose Random 86 mg/dL (60-115); Potassium 4.3 mmol/L (3.3-5.1); Sodium 139 mmol/L (135-145)
[2024-10-12] MEDS: Buprenorphine/Naloxone 8/2 mg FILM 1.5 FILM SUBLINGUAL (09:09)
[2024-10-12] MEDS: OLANZapine 5 MG TABLET PO (09:10)
[2024-10-12] MEDS: lisinopriL 10 MG TABLET PO (09:10)
[2024-10-12] MEDS: Roflumilast 500 MCG TABLET PO (09:10)
[2024-10-12] MEDS: Clopidogrel Bisulfate 75 MG TABLET PO (09:10)
[2024-10-12] MEDS: predniSONE 20 MG TABLET 40 MG PO (09:10)
[2024-10-12] MEDS: Levothyroxine Sodium 125 MCG TABLET PO (09:10)
[2024-10-12] MEDS: Sertraline HCL 100 MG TABLET PO (09:10)
[2024-10-12] MEDS: 0.9 % Sodium Chloride Flush 3 ML SYRINGE IVFLUSH ×2 (09:11→19:34)
[2024-10-12] MEDS: Albuterol/Iprat 2.5/0.5MG 3 ML AMPUL.NEB INHALE ×3 (09:24→19:10)
--- NOTE | 2024-10-12 09:41 | P.PNIM_ITS ---
Subjective Subjective Date of Service: 10/12/24 Interval History: tremor, anxious, sob, dizzy Physical Exam 2 Vital Signs: Vital Signs: Last Vital Signs Temp 97.1 F 10/12/24 07:12 Pulse 93 10/12/24 09:26 Resp 18 10/12/24 09:26 BP 130/72 10/12/24 09:10 Pulse Ox 99 10/12/24 07:12 O2 Del Method Nasal Cannula 10/12/24 07:12 O2 Flow Rate 3 10/12/24 07:12 Oxygen Flow Rate 3 10/10/24 20:58 BMI result Body Mass Index 19.8 General: AO X 3, tremulous, anxious Resp: wheezing bilateral, mild accessory muscles used CVS: S1,S2,RRR GI: soft, non tender, non distended Objective Data Active Medications Acetaminophen (Acetaminophen 325 Mg Tablet) 650 mg PO Q6H PRN PRN Reason: Pain, Mild 1-3,fever,headache Albuterol/Ipratropium (Albuterol/Iprat 2.5/0.5mg 3 Ml Ampul.Neb) 3 ml INHALE Q4H PRN PRN Reason: Shortness of Breath/Wheezing Albuterol/Ipratropium (Albuterol/Iprat 2.5/0.5mg 3 Ml Ampul.Neb) 3 ml INHALE RQ4H WHILE AWAKE [facility] Last Admin: 10/12/24 09:24 Dose: 3 ml Documented By: YOGEHS Buprenorphine/Naloxone (Buprenorphine/Naloxone 8/2 Mg Film) 1.5 film SUBLINGUAL DAILY [facility] Last Admin: 10/12/24 09:09 Dose: 1.5 film Documented By: BRIONNA Calcium Carbonate (Calcium Carbonate 750 Mg Tab.Chew) 750 mg PO Q4H PRN PRN Reason: Heartburn Clonazepam (Clonazepam 0.5 Mg Tablet) 0.25 mg PO BID PRN PRN Reason: Anxiety Last Admin: 10/12/24 03:56 Dose: 0.25 mg Documented By: GAVINO Clopidogrel Bisulfate (Clopidogrel Bisulfate 75 Mg Tablet) 75 mg PO DAILY [facility] Last Admin: 10/12/24 09:10 Dose: 75 mg Documented By: BRIONNA Enoxaparin Sodium (Enoxaparin Sodium 40 Mg/0.4 Ml Syringe) 40 mg SUBCUT Q24H [facility] Last Admin: 10/12/24 03:56 Dose: 40 mg Documented By: GAVINO Fluticasone/Umeclidinium/Vilanterol (Fluticasone/Umeclidinium/Vilanterol 200/62.5/25 Blst.W.Dev) 1 puff INHALE RDAILY [facility] Last Admin: 10/12/24 07:42 Dose: Not Given Documented By: PENG Non-Admin Reason: Patient Asleep Levothyroxine Sodium (Levothyroxine Sodium 125 Mcg Tablet) 125 mcg PO DAILY@0600 [facility] Last Admin: 10/12/24 09:10 Dose: 125 mcg Documented By: BRIONNA Lisinopril (Lisinopril 10 Mg Tablet) 10 mg PO DAILY [facility]; Protocol Last Admin: 10/12/24 09:10 Dose: 10 mg Documented By: BRIONNA Magnesium Hydroxide (Milk Of Magnesia 30 Ml Oral.Susp) 30 ml PO DAILY PRN PRN Reason: Constipation Meclizine HCl (Meclizine Hcl 25 Mg Tablet) 25 mg PO Q8H PRN PRN Reason: dizziness Melatonin (Melatonin 3 Mg Tablet) 6 mg PO BEDTIME PRN PRN Reason: Insomnia Mirtazapine (Mirtazapine 15 Mg Tablet) 15 mg PO BEDTIME [facility] Last Admin: 10/11/24 21:29 Dose: 15 mg Documented By: OCTAVIANO Olanzapine (Olanzapine 5 Mg Tablet) 5 mg PO DAILY [facility] Last Admin: 10/12/24 09:10 Dose: 5 mg Documented By: BRIONNA Olanzapine (Olanzapine 7.5 Mg Tablet) 7.5 mg PO BEDTIME [facility] Last Admin: 10/11/24 21:29 Dose: 7.5 mg Documented By: OCTAVIANO Ondansetron HCl (Ondansetron Hcl 4 Mg/2 Ml Vial) 4 mg IVPUSH Q8H PRN PRN Reason: Nausea and Vomiting Prednisone (Prednisone 20 Mg Tablet) 40 mg PO DAILY [facility] Last Admin: 10/12/24 09:10 Dose: 40 mg Documented By: BRIONNA Roflumilast (Roflumilast 500 Mcg Tablet) 500 mcg PO DAILY [facility] Last Admin: 10/12/24 09:10 Dose: 500 mcg Documented By: BRIONNA Sertraline HCl (Sertraline Hcl 100 Mg Tablet) 100 mg PO DAILY [facility] Last Admin: 10/12/24 09:10 Dose: 100 mg Documented By: BRIONNA Sodium Chloride (0.9 % Sodium Chloride Flush 3 Ml Syringe) 3 ml IVFLUSH QSHIFT [facility] Last Admin: 10/12/24 09:11 Dose: 3 ml Documented By: BRIONNA Labs 10/12/24 07:03 10/12/24 07:01 Labs: Laboratory Results - last 24 hr 10/11/24 10/12/24 10/12/24 20:23 07:01 07:03 MCV 95.9 MCH 30.1 MCHC 31.4 RDW 14.0 Plt Count 98 L MPV 10.0 Absolute Nucleated RBC 0.000 Nucleated RBC % (auto) 0.0 Anion Gap 11 L Estim Creat Clear Calc 60.6 Estimated GFR > 60 Random Glucose 86 Calcium 8.4 D Influenza Type A (PCR) NEGATIVE Influenza Type B (PCR) NEGATIVE RSV RNA Qual (PCR) NEGATIVE SARS-CoV-2 RNA (RT-PCR) NEGATIVE Assessment and Plan (1) COPD, severe: Status: Acute Plan 69F PMH chronic hypoxic and hypercapnic respiratory failure due to COPD on 2-3 L home O2, opiate dependence, mood disorder, hypertension, hypothyroid, peripheral vascular disease presented with shortness of breath Chronic hypoxic and hypercapnic respiratory failure due to COPD with acute decompensation steroids, DuoNebs Opiate dependence Continue Suboxone Mood disorder Continue olanzapine, clonazepam - will increase to 0.5mg tid prn while on steroids/nebs Hypertension Lisinopril Peripheral vascular disease Continue Plavix Full code DVT prophylaxis with Lovenox reason for continued hospitalization: Continues to be short of breath using accessory muscles and wheezing Quality Stroke Does the patient have a stroke diagnosis?: No VTE Prior VTE?: No VTE Risk Level:: Medical - moderate - high VTE Device Contraindication: Treatment Not Indicated VTE Drug Contraindication: N/A - Med Ordered
[2024-10-12] MEDS: clonazePAM 0.5 MG TABLET PO ×2 (12:31→19:33)
[2024-10-12] MEDS: OLANZapine 7.5 MG TABLET PO (19:33)
[2024-10-12] MEDS: Mirtazapine 15 MG TABLET PO (19:33)
[2024-10-12] MEDS: Melatonin 3 MG TABLET 6 MG PO (19:34)
[2024-10-13] VITALS (11 sets, daily range): BP systolic 102–128; BP diastolic 56–60; PULSE 73–99; RESP 17–22; TEMP 36–36.6; O2SAT 91–99
[2024-10-13] MEDS: clonazePAM 0.5 MG TABLET PO ×3 (02:09→15:50)
[2024-10-13] MEDS: Enoxaparin Sodium 40 MG/0.4 ML SYRINGE SUBCUT (02:09)
[2024-10-13] MEDS: Levothyroxine Sodium 125 MCG TABLET PO (06:25)
[2024-10-13] MEDS: predniSONE 20 MG TABLET 40 MG PO (07:55)
[2024-10-13] MEDS: OLANZapine 5 MG TABLET PO (07:55)
[2024-10-13] MEDS: 0.9 % Sodium Chloride Flush 3 ML SYRINGE IVFLUSH ×3 (07:55→20:15)
[2024-10-13] MEDS: Roflumilast 500 MCG TABLET PO (07:55)
[2024-10-13] MEDS: Clopidogrel Bisulfate 75 MG TABLET PO (07:55)
[2024-10-13] MEDS: lisinopriL 10 MG TABLET PO (07:55)
[2024-10-13] MEDS: Sertraline HCL 100 MG TABLET PO (07:55)
[2024-10-13] MEDS: Albuterol/Iprat 2.5/0.5MG 3 ML AMPUL.NEB INHALE ×4 (08:29→19:12)
[2024-10-13] MEDS: Fluticasone/Umeclidinium/Vilanterol 200/62.5/25 BLST.W.DEV 1 PUFF INHALE (08:30)
[2024-10-13] MEDS: Buprenorphine/Naloxone 8/2 mg FILM 1.5 FILM SUBLINGUAL (09:58)
--- NOTE | 2024-10-13 10:30 | HO.PM.IMPN ---
Subjective Subjective Date of Service: 10/13/24 Interval History: tremor, anxious, sob, dizzy reports seeing a pinworm in stool Physical Exam Vital Signs: Vital Signs: Last Vital Signs Temp 97.2 F 10/13/24 07:47 Pulse 73 10/13/24 08:30 Resp 22 H 10/13/24 08:30 BP 128/58 L 10/13/24 07:47 Pulse Ox 99 10/13/24 07:47 O2 Del Method Nasal Cannula 10/13/24 07:47 O2 Flow Rate 3.5 10/13/24 07:47 Oxygen Flow Rate 3 10/10/24 20:58 BMI result Body Mass Index 19.8 General: AO X 3, tremulous, anxious Resp: wheezing bilateral, mild accessory muscles used CVS: S1,S2,RRR GI: soft, non tender, non distended Objective Data Active Medications Acetaminophen (Acetaminophen 325 Mg Tablet) 650 mg PO Q6H PRN PRN Reason: Pain, Mild 1-3,fever,headache Albuterol/Ipratropium (Albuterol/Iprat 2.5/0.5mg 3 Ml Ampul.Neb) 3 ml INHALE Q4H PRN PRN Reason: Shortness of Breath/Wheezing Albuterol/Ipratropium (Albuterol/Iprat 2.5/0.5mg 3 Ml Ampul.Neb) 3 ml INHALE RQ4H WHILE AWAKE [facility] Last Admin: 10/13/24 08:29 Dose: 3 ml Documented By: GUSTABO Buprenorphine/Naloxone (Buprenorphine/Naloxone 8/2 Mg Film) 1.5 film SUBLINGUAL DAILY [facility] Last Admin: 10/13/24 09:58 Dose: 1.5 film Documented By: BRIONNA Calcium Carbonate (Calcium Carbonate 750 Mg Tab.Chew) 750 mg PO Q4H PRN PRN Reason: Heartburn Clonazepam (Clonazepam 0.5 Mg Tablet) 0.5 mg PO TID PRN PRN Reason: Anxiety Last Admin: 10/13/24 07:55 Dose: 0.5 mg Documented By: BRIONNA Clopidogrel Bisulfate (Clopidogrel Bisulfate 75 Mg Tablet) 75 mg PO DAILY [facility] Last Admin: 10/13/24 07:55 Dose: 75 mg Documented By: BRIONNA Enoxaparin Sodium (Enoxaparin Sodium 40 Mg/0.4 Ml Syringe) 40 mg SUBCUT Q24H [facility] Last Admin: 10/13/24 02:09 Dose: 40 mg Documented By: MEGHAN Fluticasone/Umeclidinium/Vilanterol (Fluticasone/Umeclidinium/Vilanterol 200/62.5/25 Blst.W.Dev) 1 puff INHALE RDAILY [facility] Last Admin: 10/13/24 08:30 Dose: 1 puff Documented By: GUSTABO Ivermectin (Ivermectin 3 Mg Tablet) 6 mg PO ONCE ONE Stop: 10/13/24 10:28 Levothyroxine Sodium (Levothyroxine Sodium 125 Mcg Tablet) 125 mcg PO DAILY@0600 [facility] Last Admin: 10/13/24 06:25 Dose: 125 mcg Documented By: MEGHAN Lisinopril (Lisinopril 10 Mg Tablet) 10 mg PO DAILY [facility]; Protocol Last Admin: 10/13/24 07:55 Dose: 10 mg Documented By: BRIONNA Magnesium Hydroxide (Milk Of Magnesia 30 Ml Oral.Susp) 30 ml PO DAILY PRN PRN Reason: Constipation Meclizine HCl (Meclizine Hcl 25 Mg Tablet) 25 mg PO Q8H PRN PRN Reason: dizziness Melatonin (Melatonin 3 Mg Tablet) 6 mg PO BEDTIME PRN PRN Reason: Insomnia Last Admin: 10/12/24 19:34 Dose: 6 mg Documented By: MEGHAN Mirtazapine (Mirtazapine 15 Mg Tablet) 15 mg PO BEDTIME [facility] Last Admin: 10/12/24 19:33 Dose: 15 mg Documented By: MEGHAN Olanzapine (Olanzapine 5 Mg Tablet) 5 mg PO DAILY [facility] Last Admin: 10/13/24 07:55 Dose: 5 mg Documented By: BRIONNA Olanzapine (Olanzapine 7.5 Mg Tablet) 7.5 mg PO BEDTIME [facility] Last Admin: 10/12/24 19:33 Dose: 7.5 mg Documented By: MEGHAN Ondansetron HCl (Ondansetron Hcl 4 Mg/2 Ml Vial) 4 mg IVPUSH Q8H PRN PRN Reason: Nausea and Vomiting Prednisone (Prednisone 20 Mg Tablet) 40 mg PO DAILY [facility] Last Admin: 10/13/24 07:55 Dose: 40 mg Documented By: BRIONNA Roflumilast (Roflumilast 500 Mcg Tablet) 500 mcg PO DAILY [facility] Last Admin: 10/13/24 07:55 Dose: 500 mcg Documented By: BRIONNA Sertraline HCl (Sertraline Hcl 100 Mg Tablet) 100 mg PO DAILY [facility] Last Admin: 10/13/24 07:55 Dose: 100 mg Documented By: BRIONNA Sodium Chloride (0.9 % Sodium Chloride Flush 3 Ml Syringe) 3 ml IVFLUSH QSHIFT [facility] Last Admin: 10/13/24 07:55 Dose: 3 ml Documented By: BRIONNA Labs 10/12/24 07:03 10/12/24 07:01 Assessment and Plan (1) COPD, severe: Status: Acute Plan 69F PMH chronic hypoxic and hypercapnic respiratory failure due to COPD on 2-3 L home O2, opiate dependence, mood disorder, hypertension, hypothyroid, peripheral vascular disease presented with shortness of breath Chronic hypoxic and hypercapnic respiratory failure due to COPD with acute decompensation steroids, DuoNebs Opiate dependence Continue Suboxone pin worm will give one dose ivermectin Mood disorder Continue olanzapine, clonazepam - will increase to 0.5mg tid prn while on steroids/nebs Hypertension Lisinopril Peripheral vascular disease Continue Plavix Full code DVT prophylaxis with Lovenox reason for continued hospitalization: Continues to be short of breath using accessory muscles and wheezing Quality Stroke Does the patient have a stroke diagnosis?: No VTE Prior VTE?: No VTE Risk Level:: Medical - moderate - high VTE Device Contraindication: Treatment Not Indicated VTE Drug Contraindication: N/A - Med Ordered
[2024-10-13] MEDS: OLANZapine 7.5 MG TABLET PO (20:14)
[2024-10-13] MEDS: Melatonin 3 MG TABLET 6 MG PO (20:14)
[2024-10-13] MEDS: guaiFENesin LA 600 MG TAB.ER.12H 1200 MG PO (20:14)
[2024-10-13] MEDS: Mirtazapine 15 MG TABLET PO (20:14)
[2024-10-14] VITALS (9 sets, daily range): BP systolic 110–173; BP diastolic 57–99; PULSE 82–109; RESP 18–20; TEMP 36–36.9; O2SAT 91–97
[2024-10-14] MEDS: Enoxaparin Sodium 40 MG/0.4 ML SYRINGE SUBCUT (02:25)
[2024-10-14] MEDS: clonazePAM 0.5 MG TABLET PO ×3 (04:29→16:55)
[2024-10-14] MEDS: Levothyroxine Sodium 125 MCG TABLET PO (05:04)
[2024-10-14] MEDS: Fluticasone/Umeclidinium/Vilanterol 200/62.5/25 BLST.W.DEV 1 PUFF INHALE (07:53)
[2024-10-14] MEDS: Albuterol/Iprat 2.5/0.5MG 3 ML AMPUL.NEB INHALE ×4 (07:53→20:27)
[2024-10-14] MEDS: lisinopriL 10 MG TABLET PO (08:02)
[2024-10-14] MEDS: predniSONE 20 MG TABLET 40 MG PO (08:02)
[2024-10-14] MEDS: Roflumilast 500 MCG TABLET PO (08:02)
[2024-10-14] MEDS: 0.9 % Sodium Chloride Flush 3 ML SYRINGE IVFLUSH ×3 (08:03→19:42)
[2024-10-14] MEDS: guaiFENesin LA 600 MG TAB.ER.12H 1200 MG PO ×2 (08:03→19:39)
[2024-10-14] MEDS: Sertraline HCL 100 MG TABLET PO (08:03)
[2024-10-14] MEDS: Buprenorphine/Naloxone 8/2 mg FILM 1.5 FILM SUBLINGUAL (08:03)
[2024-10-14] MEDS: OLANZapine 5 MG TABLET PO (08:03)
[2024-10-14] MEDS: Clopidogrel Bisulfate 75 MG TABLET PO (08:03)
--- NOTE | 2024-10-14 08:51 | P.PNIM_ITS ---
Subjective Subjective Date of Service: 10/14/24 Interval History: feeling worse than on admisison Physical Exam 2 Vital Signs: Vital Signs: Last Vital Signs Temp 96.8 F 10/14/24 07:51 Pulse 91 10/14/24 07:56 Resp 20 10/14/24 07:56 BP 173/99 H 10/14/24 07:51 Pulse Ox 95 10/14/24 07:51 O2 Del Method Nasal Cannula 10/14/24 07:51 O2 Flow Rate 3 10/14/24 07:51 Oxygen Flow Rate 3 10/10/24 20:58 BMI result Body Mass Index 19.8 General: AO X 3, acute distress Resp: wheezing bilateral, accessory muscles used CVS: S1,S2,RRR GI: soft, non tender, non distended Neuro: motor grossly intact, alert Psych: appropriate affect, appropriate insight Objective Data Active Medications Acetaminophen (Acetaminophen 325 Mg Tablet) 650 mg PO Q6H PRN PRN Reason: Pain, Mild 1-3,fever,headache Albuterol/Ipratropium (Albuterol/Iprat 2.5/0.5mg 3 Ml Ampul.Neb) 3 ml INHALE Q4H PRN PRN Reason: Shortness of Breath/Wheezing Albuterol/Ipratropium (Albuterol/Iprat 2.5/0.5mg 3 Ml Ampul.Neb) 3 ml INHALE RQ4H WHILE AWAKE [facility] Last Admin: 10/14/24 07:53 Dose: 3 ml Documented By: TRINITY Buprenorphine/Naloxone (Buprenorphine/Naloxone 8/2 Mg Film) 1.5 film SUBLINGUAL DAILY [facility] Last Admin: 10/14/24 08:03 Dose: 1.5 film Documented By: RODOLFO Calcium Carbonate (Calcium Carbonate 750 Mg Tab.Chew) 750 mg PO Q4H PRN PRN Reason: Heartburn Clonazepam (Clonazepam 0.5 Mg Tablet) 0.5 mg PO TID PRN PRN Reason: Anxiety Last Admin: 10/14/24 04:29 Dose: 0.5 mg Documented By: MESFIN Clopidogrel Bisulfate (Clopidogrel Bisulfate 75 Mg Tablet) 75 mg PO DAILY [facility] Last Admin: 10/14/24 08:03 Dose: 75 mg Documented By: RODOLFO Enoxaparin Sodium (Enoxaparin Sodium 40 Mg/0.4 Ml Syringe) 40 mg SUBCUT Q24H [facility] Last Admin: 10/14/24 02:25 Dose: 40 mg Documented By: MESFIN Fluticasone/Umeclidinium/Vilanterol (Fluticasone/Umeclidinium/Vilanterol 200/62.5/25 Blst.W.Dev) 1 puff INHALE RDAILY [facility] Last Admin: 10/14/24 07:53 Dose: 1 puff Documented By: TRINITY Guaifenesin (Guaifenesin La 600 Mg Tab.Er.12h) 1,200 mg PO BID [facility] Last Admin: 10/14/24 08:03 Dose: 1,200 mg Documented By: RODOLFO Levothyroxine Sodium (Levothyroxine Sodium 125 Mcg Tablet) 125 mcg PO DAILY@0600 [facility] Last Admin: 10/14/24 05:04 Dose: 125 mcg Documented By: MESFIN Lisinopril (Lisinopril 10 Mg Tablet) 10 mg PO DAILY [facility]; Protocol Last Admin: 10/14/24 08:02 Dose: 10 mg Documented By: RODOLFO Magnesium Hydroxide (Milk Of Magnesia 30 Ml Oral.Susp) 30 ml PO DAILY PRN PRN Reason: Constipation Meclizine HCl (Meclizine Hcl 25 Mg Tablet) 25 mg PO Q8H PRN PRN Reason: dizziness Melatonin (Melatonin 3 Mg Tablet) 6 mg PO BEDTIME PRN PRN Reason: Insomnia Last Admin: 10/13/24 20:14 Dose: 6 mg Documented By: MESFIN Mirtazapine (Mirtazapine 15 Mg Tablet) 15 mg PO BEDTIME [facility] Last Admin: 10/13/24 20:14 Dose: 15 mg Documented By: MESFIN Olanzapine (Olanzapine 5 Mg Tablet) 5 mg PO DAILY [facility] Last Admin: 10/14/24 08:03 Dose: 5 mg Documented By: RODOLFO Olanzapine (Olanzapine 7.5 Mg Tablet) 7.5 mg PO BEDTIME [facility] Last Admin: 10/13/24 20:14 Dose: 7.5 mg Documented By: MESFIN Ondansetron HCl (Ondansetron Hcl 4 Mg/2 Ml Vial) 4 mg IVPUSH Q8H PRN PRN Reason: Nausea and Vomiting Prednisone (Prednisone 20 Mg Tablet) 40 mg PO DAILY [facility] Last Admin: 10/14/24 08:02 Dose: 40 mg Documented By: RODOLFO Roflumilast (Roflumilast 500 Mcg Tablet) 500 mcg PO DAILY [facility] Last Admin: 10/14/24 08:02 Dose: 500 mcg Documented By: RODOLFO Sertraline HCl (Sertraline Hcl 100 Mg Tablet) 100 mg PO DAILY [facility] Last Admin: 10/14/24 08:03 Dose: 100 mg Documented By: RODOLFO Sodium Chloride (0.9 % Sodium Chloride Flush 3 Ml Syringe) 3 ml IVFLUSH QSHIFT [facility] Last Admin: 10/14/24 08:03 Dose: 3 ml Documented By: RODOLFO Labs 10/12/24 07:03 10/12/24 07:01 Assessment and Plan (1) COPD, severe: Status: Acute Plan 69F PMH chronic hypoxic and hypercapnic respiratory failure due to COPD on 2-3 L home O2, opiate dependence, mood disorder, hypertension, hypothyroid, peripheral vascular disease presented with shortness of breath acute on Chronic hypoxic and hypercapnic respiratory failure due to COPD with acute decompensation steroids, DuoNebs, desaturating to mid 80s on exertion' will add doxy Opiate dependence Continue Suboxone pin worm s/p one dose ivermectin Mood disorder Continue olanzapine, clonazepam - increased to 0.5mg tid prn while on steroids/nebs Hypertension Lisinopril Peripheral vascular disease Continue Plavix Full code DVT prophylaxis with Lovenox reason for continued hospitalization: Continues to be short of breath using accessory muscles and wheezing Quality Stroke Does the patient have a stroke diagnosis?: No VTE Prior VTE?: No VTE Risk Level:: Medical - moderate - high VTE Device Contraindication: Treatment Not Indicated VTE Drug Contraindication: N/A - Med Ordered
[2024-10-14] MEDS: Doxycycline Monohydrate 100 MG CAPSULE PO ×2 (09:43→19:39)
[2024-10-14] MEDS: Meclizine HCl 25 MG TABLET PO (16:01)
--- NOTE | 2024-10-14 16:10 | MHC.CM.PN ---
PT NOT YET MEDICALLY CLEARED, CONTINUES TO BE SOB CURRENT DCP: HOME WITH NO SERVICES
[2024-10-14] MEDS: Acetaminophen 325 MG TABLET 650 MG PO (19:39)
[2024-10-14] MEDS: Mirtazapine 15 MG TABLET PO (19:39)
[2024-10-14] MEDS: Melatonin 3 MG TABLET 6 MG PO (19:40)
[2024-10-14] MEDS: OLANZapine 7.5 MG TABLET PO (19:40)
[2024-10-15] VITALS (9 sets, daily range): BP systolic 97–146; BP diastolic 54–69; PULSE 62–97; RESP 16–20; TEMP 36.3–36.6; O2SAT 96–98
[2024-10-15] MEDS: clonazePAM 0.5 MG TABLET PO ×3 (00:05→17:59)
[2024-10-15] MEDS: Enoxaparin Sodium 40 MG/0.4 ML SYRINGE SUBCUT (02:48)
[2024-10-15] MEDS: Levothyroxine Sodium 125 MCG TABLET PO (05:23)
[2024-10-15] MEDS: Albuterol/Iprat 2.5/0.5MG 3 ML AMPUL.NEB INHALE ×4 (05:55→20:07)
[2024-10-15 06:30] LABS: Hematocrit 33.9 % (37.0-47.0); Hemoglobin 10.6 g/dl (12.0-16.0); Mean Corpuscular HGB Conc 31.3 g/dl (31.0-35.0); Mean Corpuscular Hemoglobin 30.2 pg (27.0-33.0); Mean Corpuscular Volume 96.6 fL (80.0-98.0); Mean Platelet Volume 10.4 fL (9.4-12.3); Red Blood Count 3.51 X10*6/uL (4.20-5.50); White Blood Count 4.2 X10*3/uL (4.8-10.8)
[2024-10-15 06:31] LABS: Platelet Count 97 X10*3/uL (160-400)
[2024-10-15 06:36] LABS: Anion Gap 9 (12-20); Blood Urea Nitrogen 24 mg/dL (9-16); Calcium 9.1 mg/dL (8.4-10.2); Carbon Dioxide 35 mmol/L (22-29); Chloride 103 mmol/L (96-108); Creatinine Clr Calc Pharmacy 57.2; Estimated Glomerular Filt Rate > 60; Glucose Random 87 mg/dL (60-115); Potassium 4.5 mmol/L (3.3-5.1); Sodium 142 mmol/L (135-145)
[2024-10-15] MEDS: Fluticasone/Umeclidinium/Vilanterol 200/62.5/25 BLST.W.DEV 1 PUFF INHALE (08:24)
--- NOTE | 2024-10-15 09:00 | HO.PM.IMPN ---
Subjective Subjective Date of Service: 10/15/24 Interval History: a bikt better, but still very wheezy and anxious Physical Exam Vital Signs: Vital Signs: Last Vital Signs Temp 97.4 F 10/15/24 07:30 Pulse 62 10/15/24 08:26 Resp 16 10/15/24 08:26 BP 146/69 H 10/15/24 07:30 Pulse Ox 98 10/15/24 07:30 O2 Del Method Nasal Cannula 10/15/24 07:30 O2 Flow Rate 3 10/15/24 07:30 Oxygen Flow Rate 3 10/10/24 20:58 BMI result Body Mass Index 19.8 General: AO X 3, acute distress Resp: wheezing bilateral, accessory muscles used CVS: S1,S2,RRR GI: soft, non tender, non distended Neuro: motor grossly intact, alert Psych: appropriate affect, appropriate insight Objective Data Active Medications Acetaminophen (Acetaminophen 325 Mg Tablet) 650 mg PO Q6H PRN PRN Reason: Pain, Mild 1-3,fever,headache Last Admin: 10/14/24 19:39 Dose: 650 mg Documented By: MESFIN Albuterol/Ipratropium (Albuterol/Iprat 2.5/0.5mg 3 Ml Ampul.Neb) 3 ml INHALE Q4H PRN PRN Reason: Shortness of Breath/Wheezing Albuterol/Ipratropium (Albuterol/Iprat 2.5/0.5mg 3 Ml Ampul.Neb) 3 ml INHALE RQ4H WHILE AWAKE [facility] Last Admin: 10/15/24 05:55 Dose: 3 ml Documented By: TOYIN Buprenorphine/Naloxone (Buprenorphine/Naloxone 8/2 Mg Film) 1.5 film SUBLINGUAL DAILY [facility] Last Admin: 10/14/24 08:03 Dose: 1.5 film Documented By: RODOLFO Calcium Carbonate (Calcium Carbonate 750 Mg Tab.Chew) 750 mg PO Q4H PRN PRN Reason: Heartburn Clonazepam (Clonazepam 0.5 Mg Tablet) 0.5 mg PO TID PRN PRN Reason: Anxiety Last Admin: 10/15/24 08:07 Dose: 0.5 mg Documented By: MATTI Clopidogrel Bisulfate (Clopidogrel Bisulfate 75 Mg Tablet) 75 mg PO DAILY [facility] Last Admin: 10/14/24 08:03 Dose: 75 mg Documented By: RODOLFO Doxycycline Monohydrate (Doxycycline Monohydrate 100 Mg Capsule) 100 mg PO Q12H [facility] Last Admin: 10/14/24 19:39 Dose: 100 mg Documented By: MESFIN Enoxaparin Sodium (Enoxaparin Sodium 40 Mg/0.4 Ml Syringe) 40 mg SUBCUT Q24H [facility] Last Admin: 10/15/24 02:48 Dose: 40 mg Documented By: MESFIN Fluticasone/Umeclidinium/Vilanterol (Fluticasone/Umeclidinium/Vilanterol 200/62.5/25 Blst.W.Dev) 1 puff INHALE RDAILY [facility] Last Admin: 10/15/24 08:24 Dose: 1 puff Documented By: FRANCK Guaifenesin (Guaifenesin La 600 Mg Tab.Er.12h) 1,200 mg PO BID [facility] Last Admin: 10/14/24 19:39 Dose: 1,200 mg Documented By: MESFIN Levothyroxine Sodium (Levothyroxine Sodium 125 Mcg Tablet) 125 mcg PO DAILY@0600 [facility] Last Admin: 10/15/24 05:23 Dose: 125 mcg Documented By: MESFIN Lisinopril (Lisinopril 10 Mg Tablet) 10 mg PO DAILY [facility]; Protocol Last Admin: 10/14/24 08:02 Dose: 10 mg Documented By: RODOLFO Magnesium Hydroxide (Milk Of Magnesia 30 Ml Oral.Susp) 30 ml PO DAILY PRN PRN Reason: Constipation Meclizine HCl (Meclizine Hcl 25 Mg Tablet) 25 mg PO Q8H PRN PRN Reason: dizziness Last Admin: 10/14/24 16:01 Dose: 25 mg Documented By: RODOLFO Melatonin (Melatonin 3 Mg Tablet) 6 mg PO BEDTIME PRN PRN Reason: Insomnia Last Admin: 10/14/24 19:40 Dose: 6 mg Documented By: MESFIN Mirtazapine (Mirtazapine 15 Mg Tablet) 15 mg PO BEDTIME [facility] Last Admin: 10/14/24 19:39 Dose: 15 mg Documented By: MESFIN Olanzapine (Olanzapine 5 Mg Tablet) 5 mg PO DAILY [facility] Last Admin: 10/14/24 08:03 Dose: 5 mg Documented By: RODOLFO Olanzapine (Olanzapine 7.5 Mg Tablet) 7.5 mg PO BEDTIME [facility] Last Admin: 10/14/24 19:40 Dose: 7.5 mg Documented By: MESFIN Ondansetron HCl (Ondansetron Hcl 4 Mg/2 Ml Vial) 4 mg IVPUSH Q8H PRN PRN Reason: Nausea and Vomiting Prednisone (Prednisone 20 Mg Tablet) 40 mg PO DAILY [facility] Last Admin: 10/14/24 08:02 Dose: 40 mg Documented By: RODOLFO Roflumilast (Roflumilast 500 Mcg Tablet) 500 mcg PO DAILY [facility] Last Admin: 10/14/24 08:02 Dose: 500 mcg Documented By: RODOLFO Sertraline HCl (Sertraline Hcl 100 Mg Tablet) 100 mg PO DAILY [facility] Last Admin: 10/14/24 08:03 Dose: 100 mg Documented By: RODOLFO Sodium Chloride (0.9 % Sodium Chloride Flush 3 Ml Syringe) 3 ml IVFLUSH QSHIFT [facility] Last Admin: 10/14/24 19:42 Dose: 3 ml Documented By: MESFIN Labs 10/15/24 05:28 10/15/24 05:28 Labs: Laboratory Results - last 24 hr 10/15/24 05:28 MCV 96.6 MCH 30.2 MCHC 31.3 RDW 14.0 Plt Count 97 L MPV 10.4 Absolute Nucleated RBC 0.000 Nucleated RBC % (auto) 0.0 Anion Gap 9 L Estim Creat Clear Calc 57.2 Estimated GFR > 60 Random Glucose 87 Calcium 9.1 D Assessment and Plan (1) COPD, severe: Status: Acute Plan 69F PMH chronic hypoxic and hypercapnic respiratory failure due to COPD on 2-3 L home O2, opiate dependence, mood disorder, hypertension, hypothyroid, peripheral vascular disease presented with shortness of breath acute on Chronic hypoxic and hypercapnic respiratory failure due to COPD with acute decompensation steroids, DuoNebs, doxy, desaturating to mid 80s on exertion Opiate dependence Continue Suboxone reported seeing pin worm in stool s/p one dose ivermectin Mood disorder Continue olanzapine, clonazepam - increased to 0.5mg tid prn while on steroids/nebs Hypertension Lisinopril Peripheral vascular disease Continue Plavix Full code DVT prophylaxis with Lovenox reason for continued hospitalization: Continues to be short of breath and wheezing Quality Stroke Does the patient have a stroke diagnosis?: No VTE Prior VTE?: No VTE Risk Level:: Medical - moderate - high VTE Device Contraindication: Treatment Not Indicated VTE Drug Contraindication: N/A - Med Ordered
[2024-10-15] MEDS: Buprenorphine/Naloxone 8/2 mg FILM 1.5 FILM SUBLINGUAL (09:21)
[2024-10-15] MEDS: Roflumilast 500 MCG TABLET PO (09:22)
[2024-10-15] MEDS: lisinopriL 10 MG TABLET PO (09:22)
[2024-10-15] MEDS: OLANZapine 5 MG TABLET PO (09:23)
[2024-10-15] MEDS: Sertraline HCL 100 MG TABLET PO (09:23)
[2024-10-15] MEDS: guaiFENesin LA 600 MG TAB.ER.12H 1200 MG PO ×2 (09:23→19:53)
[2024-10-15] MEDS: predniSONE 20 MG TABLET 40 MG PO (09:23)
[2024-10-15] MEDS: Doxycycline Monohydrate 100 MG CAPSULE PO ×2 (09:23→19:53)
[2024-10-15] MEDS: Clopidogrel Bisulfate 75 MG TABLET PO (09:23)
[2024-10-15] MEDS: 0.9 % Sodium Chloride Flush 3 ML SYRINGE IVFLUSH ×2 (09:27→23:08)
[2024-10-15] MEDS: Mirtazapine 15 MG TABLET PO (19:53)
[2024-10-15] MEDS: OLANZapine 7.5 MG TABLET PO (19:53)
[2024-10-15] MEDS: Melatonin 3 MG TABLET 6 MG PO (19:53)
[2024-10-16] VITALS (8 sets, daily range): BP systolic 117–152; BP diastolic 58–78; PULSE 74–84; RESP 16–18; TEMP 36.4–36.8; O2SAT 89–100
[2024-10-16] MEDS: clonazePAM 0.5 MG TABLET PO ×4 (00:13→22:29)
[2024-10-16] MEDS: Enoxaparin Sodium 40 MG/0.4 ML SYRINGE SUBCUT (00:13)
[2024-10-16] MEDS: Levothyroxine Sodium 125 MCG TABLET PO (06:18)
[2024-10-16] MEDS: Fluticasone/Umeclidinium/Vilanterol 200/62.5/25 BLST.W.DEV 1 PUFF INHALE (08:08)
[2024-10-16] MEDS: Albuterol/Iprat 2.5/0.5MG 3 ML AMPUL.NEB INHALE ×3 (08:09→19:04)
[2024-10-16] MEDS: Doxycycline Monohydrate 100 MG CAPSULE PO ×2 (09:19→20:06)
[2024-10-16] MEDS: Sertraline HCL 100 MG TABLET PO (09:19)
[2024-10-16] MEDS: Clopidogrel Bisulfate 75 MG TABLET PO (09:19)
[2024-10-16] MEDS: Buprenorphine/Naloxone 8/2 mg FILM 1.5 FILM SUBLINGUAL (09:19)
[2024-10-16] MEDS: OLANZapine 5 MG TABLET PO (09:19)
[2024-10-16] MEDS: guaiFENesin LA 600 MG TAB.ER.12H 1200 MG PO ×2 (09:19→20:06)
[2024-10-16] MEDS: Roflumilast 500 MCG TABLET PO (09:19)
[2024-10-16] MEDS: lisinopriL 10 MG TABLET PO (09:19)
[2024-10-16] MEDS: 0.9 % Sodium Chloride Flush 3 ML SYRINGE IVFLUSH ×2 (09:25→14:56)
[2024-10-16] MEDS: predniSONE 20 MG TABLET 40 MG PO (09:41)
--- NOTE | 2024-10-16 11:03 | HO.PM.IMPN ---
Subjective Subjective Date of Service: 10/16/24 Interval History: seen and evaluated this morning feels dyspnea and unsteady having more tremors unable to finish sentences Review of Systems Review of Systems: Yes all other systems are reviewed and are negative Physical Exam Vital Signs: Vital Signs: Last Vital Signs Temp 97.5 F 10/16/24 07:32 Pulse 78 10/16/24 08:09 Resp 18 10/16/24 08:09 BP 152/68 H 10/16/24 09:19 Pulse Ox 100 10/16/24 07:32 O2 Del Method Nasal Cannula 10/16/24 07:32 O2 Flow Rate 2 10/16/24 07:32 Oxygen Flow Rate 3 10/10/24 20:58 BMI result Body Mass Index 19.8 Const: Other: Constitutional : Awake, interactive Neck : Normal inspection, Supple Cardiovascular : RRR, no JVP, no lower extremity edema Respiratory : decreased bilateral air entry, no crackles, bilateral wheezes and distressed Gastrointestinal: soft, lax, Normal bowel sounds, Non tender Skin : Warm, Dry Neurological : Alert & oriented x3, No focal deficit Objective Data Active Medications Acetaminophen (Acetaminophen 325 Mg Tablet) 650 mg PO Q6H PRN PRN Reason: Pain, Mild 1-3,fever,headache Last Admin: 10/14/24 19:39 Dose: 650 mg Documented By: MESFIN Albuterol/Ipratropium (Albuterol/Iprat 2.5/0.5mg 3 Ml Ampul.Neb) 3 ml INHALE Q4H PRN PRN Reason: Shortness of Breath/Wheezing Albuterol/Ipratropium (Albuterol/Iprat 2.5/0.5mg 3 Ml Ampul.Neb) 3 ml INHALE RQ4H WHILE AWAKE [facility] Last Admin: 10/16/24 08:09 Dose: 3 ml Documented By: PENG Buprenorphine/Naloxone (Buprenorphine/Naloxone 8/2 Mg Film) 1.5 film SUBLINGUAL DAILY [facility] Last Admin: 10/16/24 09:19 Dose: 1.5 film Documented By: MATTI Calcium Carbonate (Calcium Carbonate 750 Mg Tab.Chew) 750 mg PO Q4H PRN PRN Reason: Heartburn Clonazepam (Clonazepam 0.5 Mg Tablet) 0.5 mg PO TID PRN PRN Reason: Anxiety Last Admin: 10/16/24 08:16 Dose: 0.5 mg Documented By: MATTI Clopidogrel Bisulfate (Clopidogrel Bisulfate 75 Mg Tablet) 75 mg PO DAILY [facility] Last Admin: 10/16/24 09:19 Dose: 75 mg Documented By: MATTI Doxycycline Monohydrate (Doxycycline Monohydrate 100 Mg Capsule) 100 mg PO Q12H [facility] Last Admin: 10/16/24 09:19 Dose: 100 mg Documented By: MATTI Enoxaparin Sodium (Enoxaparin Sodium 40 Mg/0.4 Ml Syringe) 40 mg SUBCUT Q24H [facility] Last Admin: 10/16/24 00:13 Dose: 40 mg Documented By: GILBERT Fluticasone/Umeclidinium/Vilanterol (Fluticasone/Umeclidinium/Vilanterol 200/62.5/ Blst.W.Dev) 1 puff INHALE RDAILY [facility] Last Admin: 10/16/24 08:08 Dose: 1 puff Documented By: PENG Guaifenesin (Guaifenesin La 600 Mg Tab.Er.12h) 1,200 mg PO BID [facility] Last Admin: 10/16/24 09:19 Dose: 1,200 mg Documented By: MATTI Levothyroxine Sodium (Levothyroxine Sodium 125 Mcg Tablet) 125 mcg PO DAILY@0600 [facility] Last Admin: 10/16/24 06:18 Dose: 125 mcg Documented By: GILBERT Lisinopril (Lisinopril 10 Mg Tablet) 10 mg PO DAILY [facility]; Protocol Last Admin: 10/16/24 09:19 Dose: 10 mg Documented By: MATTI Magnesium Hydroxide (Milk Of Magnesia 30 Ml Oral.Susp) 30 ml PO DAILY PRN PRN Reason: Constipation Meclizine HCl (Meclizine Hcl 25 Mg Tablet) 25 mg PO Q8H PRN PRN Reason: dizziness Last Admin: 10/14/24 16:01 Dose: 25 mg Documented By: RODOLFO Melatonin (Melatonin 3 Mg Tablet) 6 mg PO BEDTIME PRN PRN Reason: Insomnia Last Admin: 10/15/24 19:53 Dose: 6 mg Documented By: GILBERT Mirtazapine (Mirtazapine 15 Mg Tablet) 15 mg PO BEDTIME [facility] Last Admin: 10/15/24 19:53 Dose: 15 mg Documented By: GILBERT Olanzapine (Olanzapine 5 Mg Tablet) 5 mg PO DAILY [facility] Last Admin: 10/16/24 09:19 Dose: 5 mg Documented By: MATTI Olanzapine (Olanzapine 7.5 Mg Tablet) 7.5 mg PO BEDTIME [facility] Last Admin: 10/15/24 19:53 Dose: 7.5 mg Documented By: GILBERT Ondansetron HCl (Ondansetron Hcl 4 Mg/2 Ml Vial) 4 mg IVPUSH Q8H PRN PRN Reason: Nausea and Vomiting Prednisone (Prednisone 20 Mg Tablet) 40 mg PO DAILY [facility] Last Admin: 10/16/24 09:41 Dose: 40 mg Documented By: MATTI Roflumilast (Roflumilast 500 Mcg Tablet) 500 mcg PO DAILY [facility] Last Admin: 10/16/24 09:19 Dose: 500 mcg Documented By: MATTI Sertraline HCl (Sertraline Hcl 100 Mg Tablet) 100 mg PO DAILY [facility] Last Admin: 10/16/24 09:19 Dose: 100 mg Documented By: MATTI Sodium Chloride (0.9 % Sodium Chloride Flush 3 Ml Syringe) 3 ml IVFLUSH QSHIFT [facility] Last Admin: 10/16/24 09:25 Dose: 3 ml Documented By: MATTI Labs 10/15/24 05:28 10/15/24 05:28 Assessment and Plan (1) Acute exacerbation of chronic obstructive pulmonary disease: Status: Acute (2) Acute on chronic respiratory failure with hypoxia and hypercapnia: Status: Acute Plan 69F PMH chronic hypoxic and hypercapnic respiratory failure due to COPD on 2-3 L home O2, opiate dependence, mood disorder, hypertension, hypothyroid, peripheral vascular disease presented with shortness of breath acute on Chronic hypoxic and hypercapnic respiratory failure due to COPD with acute decompensation continue steroids, resume DuoNebs, doxy, desaturating to mid 80s on exertion to do PT eval Opiate dependence Continue Suboxone reported seeing pin worm in stool s/p one dose ivermectin Mood disorder Continue olanzapine, clonazepam - increased to 0.5mg tid prn while on steroids/nebs Hypertension Lisinopril Peripheral vascular disease Continue Plavix Full code DVT prophylaxis with Lovenox reason for continued hospitalization: Continues to be short of breath and wheezing Quality Stroke Does the patient have a stroke diagnosis?: No VTE Prior VTE?: No VTE Risk Level:: Medical - moderate - high VTE Device Contraindication: Treatment Not Indicated VTE Drug Contraindication: N/A - Med Ordered
[2024-10-16] MEDS: diazePAM 5 MG TABLET PO (14:56)
[2024-10-16] MEDS: OLANZapine 7.5 MG TABLET PO (20:06)
[2024-10-16] MEDS: hydrOXYzine HCL 25 MG TABLET PO (20:06)
[2024-10-16] MEDS: Mirtazapine 15 MG TABLET PO (20:06)
[2024-10-17] MEDS: 0.9 % Sodium Chloride Flush 3 ML SYRINGE IVFLUSH (00:08)
[2024-10-17] MEDS: Enoxaparin Sodium 40 MG/0.4 ML SYRINGE SUBCUT (02:22)
[2024-10-17] MEDS: Levothyroxine Sodium 125 MCG TABLET PO (05:27)
[2024-10-17] MEDS: clonazePAM 0.5 MG TABLET PO (05:27)
[2024-10-17 06:38] LABS: MANUAL DIFF FLAG NO
[2024-10-17 06:47] LABS: Basophils Percent Auto 0.5 % (0-2); Eosinophils Percent Auto 0.5 % (0-4); Hematocrit 36.3 % (37.0-47.0); Hemoglobin 11.3 g/dl (12.0-16.0); Imm Gran Abs Auto 0.07 X10*3/uL (0.00-0.03); Imm Gran Pct Auto 1.1 % (0.0-0.4); Lymphocytes Percent Auto 14.8 % (20-40); Mean Corpuscular HGB Conc 31.1 g/dl (31.0-35.0); Mean Corpuscular Hemoglobin 30.8 pg (27.0-33.0); Mean Corpuscular Volume 98.9 fL (80.0-98.0); Mean Platelet Volume 10.5 fL (9.4-12.3); Monocytes Absolute Auto 0.4 X10*3/uL (0.1-1.2); Monocytes Percent Auto 5.9 % (2-11); Neutrophils Absolute Auto 5.1 x10*3/uL (2.0-8.3); Neutrophils Percent Auto 77.2 % (45-73); Platelet Count 127 X10*3/uL (160-400); Red Blood Count 3.67 X10*6/uL (4.20-5.50); Red Cell Distribution Width 13.9 % (11.0-16.0); White Blood Count 6.6 X10*3/uL (4.8-10.8)
[2024-10-17 07:07] LABS: Anion Gap 8 (12-20); Blood Urea Nitrogen 37 mg/dL (9-16); Calcium 9.5 mg/dL (8.4-10.2); Carbon Dioxide 37 mmol/L (22-29); Chloride 99 mmol/L (96-108); Creatinine Clr Calc Pharmacy 52.8; Estimated Glomerular Filt Rate > 60; Glucose Random 70 mg/dL (60-115); Potassium 4.9 mmol/L (3.3-5.1); Sodium 139 mmol/L (135-145)
[2024-10-17 07:40] VITALS: BP 117/62; PULSE 63; RESP 18; TEMP 36.2; O2SAT 99
[2024-10-17 07:44] VITALS: PULSE 63; RESP 18; O2SAT 99
[2024-10-17] MEDS: Albuterol/Iprat 2.5/0.5MG 3 ML AMPUL.NEB INHALE (07:44)
[2024-10-17] MEDS: Fluticasone/Umeclidinium/Vilanterol 200/62.5/25 BLST.W.DEV 1 PUFF INHALE (07:44)
[2024-10-17] MEDS: Roflumilast 500 MCG TABLET PO (08:07)
[2024-10-17] MEDS: predniSONE 20 MG TABLET 40 MG PO (08:07)
[2024-10-17] MEDS: guaiFENesin LA 600 MG TAB.ER.12H 1200 MG PO (08:07)
[2024-10-17] MEDS: Clopidogrel Bisulfate 75 MG TABLET PO (08:07)
[2024-10-17] MEDS: OLANZapine 5 MG TABLET PO (08:08)
[2024-10-17] MEDS: Doxycycline Monohydrate 100 MG CAPSULE PO (08:08)
[2024-10-17] MEDS: Sertraline HCL 100 MG TABLET PO (08:08)
[2024-10-17] MEDS: lisinopriL 10 MG TABLET PO (08:08)
[2024-10-17] MEDS: Buprenorphine/Naloxone 12/3 mg FILM 1 FILM SUBLINGUAL (08:16)
[2024-10-17 08:46] VITALS: PULSE 63
--- NOTE | 2024-10-17 10:39 | P.DS_ITS ---
DS: Providers Provider Date of Service: 10/17/24 Date of admission: 10/11/24 08:21 Date of discharge: 10/17/24 Primary care physician: Eddie Watkins MD DS: Diagnosis Discharge Diagnosis (1) Acute exacerbation of chronic obstructive pulmonary disease: Status: Acute (2) Acute on chronic respiratory failure with hypoxia and hypercapnia: Status: Acute DS: Summary Hospital Course Hospital Course: The patient had prolonged hospital stay. for full details please return to EMR. Admission note HPI This is a 69-year-old female with pertinent history of chronic hypoxemic respiratory failure due to COPD on 2-3 L supplemental oxygen, mood disorder, hypertension, hypothyroidism who presents to the emergency department for evaluation of dyspnea. Patient states her symptoms started 1-2 days prior to presentation. On the day of presentation she was having wheezing, nonproductive cough and dyspnea which is worse with exertion. Patient also had a panic attack where she could not breathe. No orthopnea PND. No fever, chills, chest pain, palpitations, abdominal pain, changes in urinary or bowel habits. In the emergency department, patient wheezing despite DuoNeb treatment and systemic steroid. Hospital course The patient was treated for acute on Chronic hypoxic and hypercapnic respiratory failure due to COPD with acute decompensation with IV then PO steroids, Bronchodilator nebulizers, Doxycycline and O2 supplement with good response over the course of hospital stay. Weaned down O2 to 3L on ambulation with good tolerance. will be discharged on tapering dose Prednisone along with Doxycycline and Mucinex. For Opiate dependence. Continue Suboxone She reported seeing pin worm in stool. Received one dose ivermectin with no reported recurrence of same problem. For Mood disorder she was Continue olanzapine, clonazepam - increased to 0.5mg tid prn while on steroids/nebs with addition of PRN Atarax that seems to be helping. Discharge plan Continue Prednisone tapering dose Continue Doxycycline as prescribed Cough medicine Atarax as needed for anxiety Time Attestation Discharge Coordination Time (in mins): 38 Quality: Safe Use of Opioids Does Pt have an Active Cancer Diagnosis on the Problem List?: No Quality: Stroke Does the patient have a stroke diagnosis?: No Physical Exam Vital Signs: Vital Signs: Last Vital Signs Temp 97.2 F 10/17/24 07:40 Pulse 63 10/17/24 08:46 Resp 18 10/17/24 07:44 BP 117/62 10/17/24 07:40 Pulse Ox 99 10/17/24 07:40 O2 Del Method Nasal Cannula 10/17/24 07:40 O2 Flow Rate 3.0 10/17/24 07:40 Oxygen Flow Rate 3 10/10/24 20:58 BMI result Body Mass Index 19.8 Const: Other: Constitutional : Awake, interactive Neck : Normal inspection, Supple Cardiovascular : RRR, no JVP, no lower extremity edema Respiratory : good bilateral air entry, no crackles, scattered bilateral wheezes Gastrointestinal: soft, lax, Normal bowel sounds, Non tender Skin : Warm, Dry Neurological : Alert & oriented x3, No focal deficit DS: Data Data Completed and Pending Completed studies during hospitalization [Text1]: Procedures Assistance with Respiratory Ventilation, Less than 24 Consecutive Hours, Continuous Positive Airway Pressure (07/25/24) Labs on day of discharge: Laboratory Results - last 24 hr 10/17/24 05:20 WBC 6.6 RBC 3.67 L Hgb 11.3 L Hct 36.3 L MCV 98.9 H MCH 30.8 MCHC 31.1 RDW 13.9 Plt Count 127 L D MPV 10.5 Immature Gran % (Auto) 1.1 H Neut % (Auto) 77.2 H Lymph % (Auto) 14.8 L [place] % (Auto) 5.9 Eos % (Auto) 0.5 Baso % (Auto) 0.5 Lymph # (Auto) 1.0 L [place] # (Auto) 0.4 Eos # (Auto) 0.0 Baso # (Auto) 0.0 Abs Immat Gran (auto) 0.07 H Absolute Neuts (auto) 5.1 Absolute Nucleated RBC 0.000 Nucleated RBC % (auto) 0.0 Sodium 139 Potassium 4.9 Chloride 99 Carbon Dioxide 37 H Anion Gap 8 L BUN 37 H Creatinine 0.78 Estim Creat Clear Calc 52.8 Estimated GFR > 60 Random Glucose 70 Calcium 9.5 Imaging Chest x-ray: Radiologist's impression: ITS Impressions Chest X-Ray 10/16/24 15:30 IMPRESSION: Emphysema with prominent bilateral interstitial markings likely chronic, unchanged to chest x-ray 10/10/[address] 09/11/2024 Electronically signed by: Juan Carlos Feng MD 10/16/2024 04:28 PM [facility] Discharge Plan Discharge Anticipated Discharge Date/Time: 10/17/24 10:35 Patient Disposition: Home Health Service Discharge Diagnosis: COPD exacerbation Referrals: Eddie Watkins MD [Primary Care Provider] - 1 Week Discharge Medications: New doxycycline monohydrate 100 mg Capsule 100 mg PO Q12H Qty: 10 0RF hydroxyzine HCl 25 mg Tablet 25 mg PO Q6H PRN (Reason: Anxiety/Restlessness) Qty: 20 0RF guaifenesin [Mucinex] 600 mg Tablet Extended Release 12hr 600 mg PO BID Qty: 30 0RF prednisone 10 mg tablet See Taper PO DAILY Qty: 30 0RF Taper: Prednisone 40 mg daily for 3 Days and 0 Hour 30 mg daily for 3 Days and 0 Hour 20 mg daily for 3 Days and 0 Hour 10 mg daily for 3 Days and 0 Hour Rx Instructions: see taper instructions Continued albuterol sulfate 2.5 mg /3 mL (0.083 %) solution for nebulization 2.5 mg inhalation QID PRN (Reason: Wheezing) (DME) Walker with wheels and baske, seat, and break See Rx Instructions .Route .MEDSUPPLY Qty: 1 0RF Rx Instructions: Walker with wheels, break, seat and basket sertraline 100 mg tablet 100 mg PO DAILY 90 Days Qty: 90 0RF (DME) Pant Liners, Large Pad See Rx Instructions .Route Qty: 96 5RF Rx Instructions: Change as needed, up to 3 per day lisinopril 10 mg tablet 10 mg PO DAILY 90 Days Qty: 90 0RF clopidogrel [Plavix] 75 mg tablet 75 mg PO DAILY 90 Days Qty: 90 1RF levothyroxine 125 mcg tablet 125 mcg PO DAILY@0600 Qty: 90 0RF mirtazapine 15 mg tablet 15 mg PO BEDTIME albuterol sulfate [Ventolin HFA] 90 mcg/actuation HFA aerosol inhaler 2 puff INHALATION Q6H PRN (Reason: Shortness Of Breath Or Wheezing) roflumilast 500 mcg tablet 500 mcg PO DAILY meclizine 25 mg Tablet 25 mg PO Q8H PRN (Reason: dizziness) Qty: 30 0RF clonazepam 0.5 mg tablet 0.5 mg PO DAILY PRN (Reason: Anxiety) olanzapine 7.5 mg Tablet 7.5 mg PO BEDTIME Qty: 30 0RF buprenorphine-naloxone 12-3 mg film 1 film sublingual DAILY Trelegy Ellipta 200-62.5-25 mcg blister with device 1 ea inhalation DAILY Discharge Orders: Discharge Order (Routine); Ordered 10/17/24 Ordered By: Jordin Yen Diet: Advance to usual diet Activity on Discharge: As tolerated Stand Alone Forms: Patient Portal Discharge page Print Language: Beninese Care Plan Goals: Continue Prednisone tapering dose Continue Doxycycline as prescribed Cough medicine Atarax as needed for anxiety Health Concerns: COPD exacerbation Plan of Treatment: Steroids, inhalers Assessment: as above
--- NOTE | 2024-10-17 10:44 | MHC.CM.PN ---
Addendum entered by Ashanti Jimenez 10/17/24 11:22: FINAL IMM GIVEN Original Note: DP: PT HAS BEEN MEDICALLY CLEARED FOR DC HOME, NO SERVICES. PT DOES NOT HAVE [facility], BLS TRANSPORT SET UP FOR 12 N DUE TO 02 NEED VIA JESS. RN/MD AWARE.
[2024-10-17 11:49] VITALS: BP 111/74; PULSE 89; RESP 20; TEMP 36.7; O2SAT 95
== END 2024-10-17 11:50 | disposition home or self-care (01) | DRG 190 ==
LOC: HO.ED 23:37 → HO.EDOVER 10-11 01:11 → HO.IMC 10-11 07:55 → HO.S3 10-13 15:58
PROVIDERS: Internal Medicine; Admitting Provider Student in an Organized Health Care Education/Training Program; Emergency Provider Emergency Medicine; PCP Internal Medicine; Visit Provider Student in an Organized Health Care Education/Training Program
DX: J44.1 Chronic obstructive pulmonary disease with (acute) exacerbation (principal); J96.21 Acute and chronic respiratory failure with hypoxia; J96.22 Acute and chronic respiratory failure with hypercapnia; B80 Enterobiasis; F11.20 Opioid dependence, uncomplicated; E03.9 Hypothyroidism, unspecified; I10 Essential (primary) hypertension; Z87.891 Personal history of nicotine dependence; Z20.822 Contact with and (suspected) exposure to COVID-19; Z99.81 Dependence on supplemental oxygen; Z79.51 Long term (current) use of inhaled steroids; Z79.890 Hormone replacement therapy; Z79.899 Other long term (current) drug therapy
CPT/HCPCS: 0241U; 36415; 71045; 80048; 80053; 82803; 83735; 83880; 84484; 85025; 85027; 93005; 94640; 97116; 97162; 99222; 99285; J1650; J2060; J2919; J3475; J7120

== ENCOUNTER → 2024-10-10 21:06 | Outpatient (BNV) | payer MEDICARE, MEDICAID, SELFPAY | PROVIDERS: Emergency Provider Emergency Medicine; PCP Internal Medicine; Visit Provider Radiology Diagnostic Radiology | DX: R06.02 Shortness of breath (principal); J98.2 Interstitial emphysema | CPT/HCPCS: 71045 ==

== ENCOUNTER → 2024-10-10 21:06 | Outpatient (BNV) | payer MEDICARE, MEDICAID, SELFPAY | PROVIDERS: Admitting Provider Student in an Organized Health Care Education/Training Program; Emergency Provider Emergency Medicine; PCP Internal Medicine; Visit Provider Internal Medicine Cardiovascular Disease | DX: I45.6 Pre-excitation syndrome (principal) | CPT/HCPCS: 93010 ==

== ENCOUNTER → 2024-10-11 01:01 | Outpatient (BNV) | payer MEDICARE, MEDICAID, SELFPAY | PROVIDERS: Admitting Provider Student in an Organized Health Care Education/Training Program; Emergency Provider Emergency Medicine; PCP Internal Medicine; Visit Provider Student in an Organized Health Care Education/Training Program | DX: J44.1 Chronic obstructive pulmonary disease with (acute) exacerbation (principal); J96.21 Acute and chronic respiratory failure with hypoxia; J96.22 Acute and chronic respiratory failure with hypercapnia | CPT/HCPCS: 99232; 99233; 99239 ==

== ENCOUNTER 2024-10-11 08:21 | Outpatient (BNV) | payer MEDICARE, MEDICAID, SELFPAY | END 2024-10-16 15:30 | PROVIDERS: Admitting Provider Student in an Organized Health Care Education/Training Program; Emergency Provider Emergency Medicine; PCP Internal Medicine; Visit Provider Radiology Diagnostic Radiology | DX: J43.9 Emphysema, unspecified (principal) | CPT/HCPCS: 71045 ==

== ENCOUNTER 2024-12-02 15:51 | Inpatient (IN) | payer MEDICARE, MEDICAID, SELFPAY ==
[2024-12-02] VITALS (9 sets, daily range): BP systolic 94–140; BP diastolic 55–95; PULSE 87–130; RESP 13–25; TEMP 36.3–37; O2SAT 88–95; BMI 20.4; BMI 20.9
--- NOTE | 2024-12-02 | ECG_ITS ---
Test Reason : elevated trop Blood Pressure : */* mmHG Vent. Rate : 131 BPM Atrial Rate : 131 BPM P-R Int : 152 ms QRS Dur : 78 ms QT Int : 308 ms P-R-T Axes : 76 61 51 degrees QTcB Int : 454 ms Sinus tachycardia with Premature supraventricular complexes Otherwise normal ECG When compared with ECG of 02-Dec-2024 16:38, Premature supraventricular complexes are now Present Vent. rate has increased by 49 bpm Referred By: Jessie Khan Electronically Signed By: MARIA ISABEL SY
--- NOTE | ~2024-12-02 | XR_ITS ---
CLINICAL HISTORY: cough 1 view chest x-ray Comparison: Chest x-ray from 12/02/2024 Findings: Mild pulmonary opacities nonspecific and concerning for pneumonitis given asymmetry, right worse than left. Borderline elevation left hemidiaphragm. No definite pneumothorax or pleural effusion. Mild emphysematous changes are redemonstrated. Partially imaged accessory azygous fissure. Imaged mediastinum appears unchanged. Small fragments adjacent to right AC joint appear old and unchanged IMPRESSION: Mild pulmonary opacities concerning for pneumonitis. Recommend attention on follow-up to ensure resolution. This document has been electronically signed by: Federico Solis MD on 12/09/2024 22:18:35
--- NOTE | ~2024-12-02 | XR_ITS ---
CLINICAL HISTORY: cp Single view of the chest. COMPARISON: XR chest dated 10/16/24 at 15:[address] chest dated 09/11/24 at 09:17 EST FINDINGS: Normal heart size. Atherosclerotic thoracic aorta. Decreased bronchovascular markings consistent with emphysema. Diffuse reticular/interstitial thickening, similar to prior imaging. No pleural effusion or pneumothorax. No fracture identified. IMPRESSION: 1. No acute findings. 2. Emphysema with prominent bilateral interstitial thickening, similar to prior imaging and likely chronic. This document has been electronically signed by: Edgardo Ruvalcaba MD on 12/02/2024 18:20:40
--- NOTE | 2024-12-02 16:29 | ECG_ITS ---
Test Reason : SOB Blood Pressure : */* mmHG Vent. Rate : 82 BPM Atrial Rate : 82 BPM P-R Int : 114 ms QRS Dur : 80 ms QT Int : 366 ms P-R-T Axes : 73 66 50 degrees QTcB Int : 427 ms Normal sinus rhythm Normal ECG When compared with ECG of 10-Oct-2024 21:16, No significant change was found Referred By: Jessie Khan Electronically Signed By: MARIA ISABEL SY
--- NOTE | 2024-12-02 16:31 | ED_ITS ---
HPI - SOB/Dyspnea General Chief Complaint: Dyspnea Stated Complaint: increased sob hx copd 2l of o2 at all times Time Seen by Provider: 12/02/24 16:23 History of Present Illness HPI Narrative: Patient is a 69-year-old female with a history of COPD baseline on 2 L of oxygen at home. Presents today with having increasing shortness of breath coughing upper respiratory symptoms has been getting worse over the last 24 hours. Patient tried to use treatments at home to no avail. Had some chills had some mild coughing. Patient is from home. Positive generalized malaise. No history of congestive heart failure. No history of heart attack. No history of stroke. Related Data Home Medications ?Medication ?Instructions ?Recorded ?Confirmed albuterol sulfate 2.5 mg/3 mL 2.5 mg inhalation QID PRN Wheezing 08/25/20 10/18/24 (0.083 %) solution for nebulization fluticasone fur. 200 mcg-umeclid 1 ea inhalation DAILY 01/05/24 10/18/24 62.5 mcg-vilant 25 mcg inhalat.powder (Trelegy Ellipta) albuterol sulfate 90 mcg/actuation 2 puff inhalation Q6H PRN 06/16/24 10/18/24 aerosol inhaler (Ventolin HFA) Shortness Of Breath Or Wheezing mirtazapine 15 mg tablet 15 mg PO BEDTIME 06/16/24 10/18/24 roflumilast 500 mcg tablet 500 mcg PO DAILY 06/16/24 10/18/24 clonazepam 0.5 mg tablet 0.5 mg PO DAILY PRN Anxiety 09/08/24 10/18/24 Previous Rx's ?Medication ?Instructions ?Recorded Walker with wheels and baske, #1 ea 05/04/21 seat, and break sertraline 100 mg tablet 100 mg PO DAILY 90 days #90 tabs 02/28/23 incontinence pad, liner, disp #96 ea 02/07/24 (Pant Liners, Large pads) meclizine 25 mg tablet 25 mg PO Q8H PRN dizziness #30 tabs 06/21/24 lisinopril 10 mg tablet 10 mg PO DAILY 90 days #90 tabs 07/08/24 clopidogrel 75 mg tablet (Plavix) 75 mg PO DAILY bilateral leg 07/09/24 stents 90 days #90 tabs olanzapine 7.5 mg tablet 7.5 mg PO BEDTIME #30 tabs 09/13/24 doxycycline monohydrate 100 mg 100 mg PO Q12H #10 caps 10/17/24 capsule guaifenesin 600 mg tablet, 600 mg PO BID #30 tabs 10/17/24 extended release 12 hr (Mucinex) hydroxyzine HCl 25 mg tablet 25 mg PO Q6H PRN 10/17/24 Anxiety/Restlessness #20 tabs prednisone 10 mg tablet See Taper PO DAILY #30 tabs 10/17/24 buprenorphine 12 mg-naloxone 3 mg 1 film sublingual DAILY #7 ea 10/18/24 sublingual film levothyroxine 125 mcg tablet 125 mcg PO DAILY@0600 #90 tabs 11/07/24 Allergies Allergy/AdvReac Type Severity Reaction Status Date / Time No Known Allergies Allergy Verified 12/02/24 16:16 Review of Systems 2 Review of Systems: Positive shortness of breath positive COPD PMFSH Past Medical History Attestation statement: The following information was validated with the patient. Medical History Hallucinations, unspecified Hypothyroidism Hypertension Anxiety Peripheral vascular occlusive disease Rectal prolapse Acute and chronic respiratory failure with hypercapnia Sepsis Pneumonia Acute exacerbation of chronic obstructive pulmonary disease (COPD) Hypertension, essential Depression, major, recurrent O2 dependent COPD, severe Surgical History History of surgery Amputated toe Hx of cholecystectomy History of appendectomy Family History Family History Father No problems noted. Mother Stomach cancer Brother No problems noted. Brother No problems noted. Brother No problems noted. Brother No problems noted. Brother No problems noted. Brother No problems noted. Sister No problems noted. Sister No problems noted. Sister No problems noted. Sister No problems noted. Social History Social History Household Members: Family Household Members Other:: sister, brothers, brother in law Housing: House Do you presently have visiting nurse or other home services: No (will be getting VNA) Unable to assess alcohol history related to: Unknown Alcohol intake: never Comment: refusing for staff to remain with patient in bathroom Patient Tobacco Use Status: Former Tobacco user Tobacco use type: Cigarette Cigarette Packs Per Day: 0.25 Cigarettes Per Day: 5.0 Years Smoked: 55 yrs e-Cigarette/Vaping Use: Never Used Second Hand Smoke Exposure: No Use of substances other than those prescribed or required for medical reasons: Unknown Substance Use Type: Marijuana Advance Directives: No Advance Directives Information Provided: No Do you have a plan to hurt others: No Plan service: No Current occupational status: retired and disabled Cognitive needs: No Hearing needs: No Vision needs: No Physical Exam 2 Vital Signs: Vital Signs: Last Vital Signs Temp 98.6 F 12/02/24 18:39 Pulse 130 H 12/02/24 18:49 Resp 22 H 12/02/24 18:49 BP 113/59 L 12/02/24 18:39 Pulse Ox 92 12/02/24 18:39 O2 Del Method Nasal Cannula 12/02/24 18:39 O2 Flow Rate 3 12/02/24 18:39 Oxygen Flow Rate 2 12/02/24 16:09 BMI result Body Mass Index 20.4 Appearance: Alert. Oriented X3. No acute distress. Eyes: Pupils equal, round and reactive to light. ENT: Pharynx normal. Neck: Normal inspection. Neck supple. No lymph nodes noted. No crepitus CVS: Normal heart rate and rhythm. Pulses normal. Normal S1 and S2 Respiratory: Diminished breath sounds bilaterally positive wheezing bilaterally throughout the entire lung field. Increased work of breathing. Abdomen: Soft and nontender. No rigidity. No distention. good BS x4 Skin: Skin warm and dry. Normal skin color. Normal skin turgor. Extremities: No lower extremity edema. Neurovascular intact to all extremities. No Lacerations. No Rash Neuro: Oriented X 3. No motor deficit. No sensory deficit. Moving all extermities. No slurred speech Medications Administered Discontinued Medications Generic Name Dose Route Start Last Admin Trade Name Freq PRN Reason Stop Dose Admin Albuterol Sulfate 2.5 mg/ 5 mg 12/02/24 17:32 12/02/24 17:38 Albuterol Sulfate 2.5 mg INHALE 12/02/24 17:33 5 mg ONCE ONE Administration Clonazepam 0.5 mg 12/02/24 19:32 12/02/24 19:42 Clonazepam 0.5 Mg Tablet PO 12/02/24 19:33 0.5 mg ONCE ONE Administration Albuterol Sulfate 5 mg/ 0 mg 12/02/24 16:51 12/02/24 16:55 Albuterol/Ipratropium 3 ml INHALE 12/02/24 16:52 7.5 each ONCE ONE Administration Sodium Chloride 1,000 mls @ 999 mls/hr 12/02/24 16:30 12/02/24 18:41 Ns IV 12/02/24 17:30 Infused .Q1H1M BRIDGER Infusion Levalbuterol HCl 1.25 mg 12/02/24 18:52 12/02/24 18:56 Levalbuterol Hcl 1.25 Mg/3 Ml Vial.Neb INHALE 12/02/24 18:53 1.25 mg ONCE ONE Administration Methylprednisolone Sodium Succinate 125 mg 12/02/24 16:30 12/02/24 16:55 Methylprednisolone Sod Succ 125 Mg/2 Ml Vial IVPUSH 12/02/24 16:31 125 mg ONCE ONE Administration Ondansetron HCl 4 mg 12/02/24 17:55 12/02/24 18:00 Ondansetron Hcl 4 Mg/2 Ml Vial IVPUSH 12/02/24 17:56 4 mg ONCE ONE Administration Medical Decision Making Medical Decision Making [facility] Narrative: Patient is 69 years old presents today with having shortness of breath. Wheezing. Patient chest x-ray showed no focal infiltrate by my interpretation. COVID flu RSV were all negative. She require additional oxygen to keep an O2 sat of 90% baseline is on 2 L now is on 3. After nebulized treatment only moderate relief of symptoms patient's troponin mildly bumped up to approximately 50. We trended a 2nd set of enzymes were done they were essentially the same. Her BNP is 290 not consistent with congestive heart failure. COVID flu RSV were all negative. White count is normal. My interpretation of patient's EKG showed a sinus tachycardia heart rate is 120. Because of failure of treatment week we will requiring increased additional oxygen will admit patient for further evaluation case was consulted by the hospitalist team. Differential Diagnosis Differential Diagnoses: The differential diagnosis associated with the presentation includes COPD, CHF, pneumonia Admission/Observation Consideration of admission/observation: Escalation of care including admission/observation considered Lab Data [facility] Lab Attestation statement: I reviewed the patient's lab results. 12/02/24 16:48 12/02/24 16:48 Labs: Lab Results 12/02/24 12/02/24 Range/Units 16:48 Unknown WBC 5.5 (4.8-10.8) X10*3/uL RBC 4.03 L (4.20-5.50) X10*6/uL Hgb 12.3 (12.0-16.0) g/dl Hct 38.7 (37.0-47.0) % MCV 96.0 (80.0-98.0) fL MCH 30.5 (27.0-33.0) pg MCHC 31.8 (31.0-35.0) g/dl RDW 14.2 (11.0-16.0) % Plt Count 141 L (160-400) X10*3/uL MPV 9.9 (9.4-12.3) fL Immature Gran % (Auto) 0.2 (0.0-0.4) % Neut % (Auto) 85.7 H (45-73) % Lymph % (Auto) 6.9 L (20-40) % [place] % (Auto) 6.2 (2-11) % Eos % (Auto) 0.5 (0-4) % Baso % (Auto) 0.5 (0-2) % Lymph # (Auto) 0.4 L (1.2-4.9) X10*3/uL [place] # (Auto) 0.3 (0.1-1.2) X10*3/uL Eos # (Auto) 0.0 (0.0-0.4) X10*3/uL Baso # (Auto) 0.0 (0.0-0.2) X10*3/uL Abs Immat Gran (auto) 0.01 (0.00-0.03) X10*3/uL Absolute Neuts (auto) 4.7 (2.0-8.3) x10*3/uL Absolute Nucleated RBC 0.000 (0.0-0.012) X10*3/uL Nucleated RBC % (auto) 0.0 (0.0-0.2) /100WBC Sodium 142 (135-145) mmol/L Potassium 3.8 D (3.3-5.1) mmol/L Chloride 101 (96-108) mmol/L Carbon Dioxide 29 (22-29) mmol/L Anion Gap 16 (12-20) BUN 8 L (9-16) mg/dL Creatinine 0.76 (0.5-1.4) mg/dL Estim Creat Clear Calc 55.8 Estimated GFR > 60 Random Glucose 159 H (60-115) mg/dL Calcium 9.0 (8.4-10.2) mg/dL Troponin I High Sens 48.0 H D (<3.5-17.0) ng/L B-Natriuretic Peptide 290 H (<100) pg/mL Influenza Type A (PCR) NEGATIVE (Negative) Influenza Type B (PCR) NEGATIVE (Negative) RSV RNA Qual (PCR) NEGATIVE (Negative) SARS-CoV-2 RNA (RT-PCR) NEGATIVE (Negative) Independent Interpretation I performed an independent interpretation of an: EKG (Sinus tachycardia heart rate is 130) and Plain X-Ray (Chest x-ray grossly negative for pneumonia) Radiology Impression Discussion of test interpretation with radiology: I have reviewed the radiologist's reading. External Record Review External record reviewed: Inpatient record Chronic Conditions COPD Social Determinants Patient?s care significantly limited by Social Determinants of Health including: Alcoholism and drug addiction in family Critical Care Time Critical Care Time Critical Care Time: Yes Total Critical Care Time: 40 Attestation: I have personally provided 40 minutes of critical care time exclusive of time spent on separately billable procedures. ?Time includes review of lab data, radiology results, discussion with consultants, and monitoring for potential decompensation. ?Interventions were performed as documented above Discharge Plan Discharge Clinical Impression: COPD (chronic obstructive pulmonary disease) Patient Disposition: Admitted As Inpatient Prescriptions: No Action albuterol sulfate 2.5 mg /3 mL (0.083 %) solution for nebulization 2.5 mg inhalation QID PRN (Reason: Wheezing) (DME) Walker with wheels and baske, seat, and break See Rx Instructions .Route .MEDSUPPLY Qty: 1 0RF Rx Instructions: Walker with wheels, break, seat and basket sertraline 100 mg tablet 100 mg PO DAILY 90 Days Qty: 90 0RF (DME) Pant Liners, Large Pad See Rx Instructions .Route Qty: 96 5RF Rx Instructions: Change as needed, up to 3 per day lisinopril 10 mg tablet 10 mg PO DAILY 90 Days Qty: 90 0RF clopidogrel [Plavix] 75 mg tablet 75 mg PO DAILY 90 Days Qty: 90 1RF levothyroxine 125 mcg tablet 125 mcg PO DAILY@0600 Qty: 90 0RF mirtazapine 15 mg tablet 15 mg PO BEDTIME albuterol sulfate [Ventolin HFA] 90 mcg/actuation HFA aerosol inhaler 2 puff INHALATION Q6H PRN (Reason: Shortness Of Breath Or Wheezing) roflumilast 500 mcg tablet 500 mcg PO DAILY meclizine 25 mg Tablet 25 mg PO Q8H PRN (Reason: dizziness) Qty: 30 0RF clonazepam 0.5 mg tablet 0.5 mg PO DAILY PRN (Reason: Anxiety) olanzapine 7.5 mg Tablet 7.5 mg PO BEDTIME Qty: 30 0RF doxycycline monohydrate 100 mg Capsule 100 mg PO Q12H Qty: 10 0RF hydroxyzine HCl 25 mg Tablet 25 mg PO Q6H PRN (Reason: Anxiety/Restlessness) Qty: 20 0RF guaifenesin [Mucinex] 600 mg Tablet Extended Release 12hr 600 mg PO BID Qty: 30 0RF prednisone 10 mg tablet See Taper PO DAILY Qty: 30 0RF Taper: Prednisone 40 mg daily for 3 Days and 0 Hour 30 mg daily for 3 Days and 0 Hour 20 mg daily for 3 Days and 0 Hour 10 mg daily for 3 Days and 0 Hour Rx Instructions: see taper instructions buprenorphine-naloxone 12-3 mg film 1 film sublingual DAILY Qty: 7 0RF Trelegy Ellipta 200-62.5-25 mcg blister with device 1 ea inhalation DAILY Print Language: Montserratian
[2024-12-02 16:52] LABS: MANUAL DIFF FLAG NO
[2024-12-02 16:53] LABS: Basophils Percent Auto 0.5 % (0-2); Eosinophils Percent Auto 0.5 % (0-4); Hematocrit 38.7 % (37.0-47.0); Hemoglobin 12.3 g/dl (12.0-16.0); Imm Gran Abs Auto 0.01 X10*3/uL (0.00-0.03); Imm Gran Pct Auto 0.2 % (0.0-0.4); Lymphocytes Absolute Auto 0.4 X10*3/uL (1.2-4.9); Lymphocytes Percent Auto 6.9 % (20-40); Mean Corpuscular HGB Conc 31.8 g/dl (31.0-35.0); Mean Corpuscular Hemoglobin 30.5 pg (27.0-33.0); Mean Platelet Volume 9.9 fL (9.4-12.3); Monocytes Absolute Auto 0.3 X10*3/uL (0.1-1.2); Monocytes Percent Auto 6.2 % (2-11); Neutrophils Absolute Auto 4.7 x10*3/uL (2.0-8.3); Neutrophils Percent Auto 85.7 % (45-73); Platelet Count 141 X10*3/uL (160-400); Red Blood Count 4.03 X10*6/uL (4.20-5.50); Red Cell Distribution Width 14.2 % (11.0-16.0); White Blood Count 5.5 X10*3/uL (4.8-10.8)
[2024-12-02] MEDS: methylPREDNISolone Sod Succ 125 MG/2 ML VIAL IVPUSH (16:55)
[2024-12-02] MEDS: Albuterol Sulfate 5 MG, Albuterol/Iprat 2.5/0.5MG 3 ML 3 ML INHALE (16:55)
[2024-12-02] MEDS: 0.9 % Sodium Chloride 1,000 ML 999 ML IV (16:56)
[2024-12-02 17:04] LABS: Influenza A PCR NEGATIVE (Negative); Influenza B PCR NEGATIVE (Negative); Resp Syncy Virus RNA Qual PCR NEGATIVE (Negative); SARS COV2 PCR INHOUSE NEGATIVE (Negative)
[2024-12-02 17:07] LABS: Anion Gap 16 (12-20); Blood Urea Nitrogen 8 mg/dL (9-16); Carbon Dioxide 29 mmol/L (22-29); Chloride 101 mmol/L (96-108); Creatinine Clr Calc Pharmacy 55.8; Estimated Glomerular Filt Rate > 60; Glucose Random 159 mg/dL (60-115); Potassium 3.8 mmol/L (3.3-5.1); Sodium 142 mmol/L (135-145)
[2024-12-02 17:13] LABS: B Type Natriuretic Peptide 290 pg/mL (<100)
[2024-12-02] MEDS: Albuterol Sulfate 2.5 MG, Albuterol Sulfate (0.083%) 2.5 MG 5 MG INHALE (17:38)
[2024-12-02] MEDS: ondansetron HCL 4 MG/2 ML VIAL IVPUSH (18:00)
[2024-12-02] MEDS: levalbuterol HCL 1.25 MG/3 ML VIAL.NEB INHALE (18:56)
[2024-12-02] MEDS: clonazePAM 0.5 MG TABLET PO (19:42)
[2024-12-02 19:46] LABS: Troponin-I High Sensitivity 50.5 ng/L (<3.5-17.0)
--- NOTE | 2024-12-02 20:22 | P.HPHOSP_ITS ---
History of Present Illness Date of Service: 12/02/24 Chief Complaint: sob 69-year-old female with a past medical history of COPD, chronic respiratory failure on 2 L of home oxygen, neuropathy, protein calorie malnutrition, anxiety, depression presented to the hospital with a chief complaint of cough and shortness of breath. Patient reports that over the past couple days she has been having shortness of breath. Which has been gradually worsening. Reports having cough without any sputum production. Denies any chest pain or palpitations. Denies any lightheadedness or dizziness. Denies any nausea or vomiting. Review of all other systems is negative except mentioned above ER course: Per ER team, patient on presentation noted to be short of breath, has bilateral wheezing concerning for acute COPD exacerbation. Patient not in respiratory distress. Continued her home supplemental oxygen. Given nebulizations and steroids. Chest x-ray showed no acute findings. While in the ER patient noted to have new onset AFib with RVR. [facility] Medical History Hallucinations, unspecified Hypothyroidism Hypertension Anxiety Peripheral vascular occlusive disease Rectal prolapse Acute and chronic respiratory failure with hypercapnia Sepsis Pneumonia Acute exacerbation of chronic obstructive pulmonary disease (COPD) Hypertension, essential Depression, major, recurrent O2 dependent COPD, severe Family History Father No problems noted. Mother Stomach cancer Brother No problems noted. Brother No problems noted. Brother No problems noted. Brother No problems noted. Brother No problems noted. Brother No problems noted. Sister No problems noted. Sister No problems noted. Sister No problems noted. Sister No problems noted. Surgical History History of surgery Amputated toe Hx of cholecystectomy History of appendectomy Social History Household Members: Family Household Members Other:: sister, brothers, brother in law Housing: House Do you presently have visiting nurse or other home services: No Unable to assess alcohol history related to: Unknown Alcohol intake: never Comment: refusing for staff to remain with patient in bathroom Patient Tobacco Use Status: Former Tobacco user Tobacco use type: Cigarette Cigarette Packs Per Day: 0.5 Cigarettes Per Day: 10.0 Years Smoked: 55 yrs Smoked in Last 30 Days: Yes e-Cigarette/Vaping Use: Never Used Second Hand Smoke Exposure: No Use of substances other than those prescribed or required for medical reasons: No Substance Use Type: Marijuana Have you been hit, kicked, punched, or otherwise hurt by someone within the past year? If so, by whom?: No Are you made to feel afraid or neglected: No Advance Directives: No Advance Directives Information Provided: No Do you have a plan to hurt others: No Plan Recently lost weight without trying: No Nutrition Risks: No Nutritional Risk Patient : No service: No Current occupational status: retired and disabled Cognitive needs: No Hearing needs: No Vision needs: No Meds Allergies Allergy/AdvReac Type Severity Reaction Status Date / Time No Known Allergies Allergy Verified 12/02/24 16:16 Active Medications: Current Medications Acetaminophen (Acetaminophen 325 Mg Tablet) 650 mg PO Q6H PRN PRN Reason: Pain, Mild 1-3,fever,headache Albuterol/Ipratropium (Albuterol/Iprat 2.5/0.5mg 3 Ml Ampul.Neb) 3 ml INHALE Q4H PRN PRN Reason: Shortness of Breath/Wheezing Albuterol/Ipratropium (Albuterol/Iprat 2.5/0.5mg 3 Ml Ampul.Neb) 3 ml INHALE RQ4H WHILE AWAKE BRIDGER Azithromycin (Azithromycin 500 Mg Tablet) 500 mg PO Q24H BRIDGER Benzonatate (Benzonatate 100 Mg Capsule) 100 mg PO TID PRN PRN Reason: Cough Calcium Carbonate (Calcium Carbonate 750 Mg Tab.Chew) 750 mg PO Q4H PRN PRN Reason: Heartburn Clonazepam (Clonazepam 0.5 Mg Tablet) 0.5 mg PO BEDTIME PRN PRN Reason: Anxiety Clopidogrel Bisulfate (Clopidogrel Bisulfate 75 Mg Tablet) 75 mg PO DAILY BRIDGER Enoxaparin Sodium (Enoxaparin Sodium 40 Mg/0.4 Ml Syringe) 40 mg SUBCUT Q24H BRIDGER Levothyroxine Sodium (Levothyroxine Sodium 125 Mcg Tablet) 125 mcg PO DAILY@0600 BRIDGER Magnesium Hydroxide (Milk Of Magnesia 30 Ml Oral.Susp) 30 ml PO DAILY PRN PRN Reason: Constipation Meclizine HCl (Meclizine Hcl 25 Mg Tablet) 25 mg PO Q8H PRN PRN Reason: Vertigo Melatonin (Melatonin 3 Mg Tablet) 6 mg PO BEDTIME PRN PRN Reason: Insomnia Methylprednisolone Sodium Succinate (Methylprednisolone Sod Succ 40 Mg/Ml Vial) 40 mg IVPUSH Q6H BRIDGER Mirtazapine (Mirtazapine 15 Mg Tablet) 15 mg PO BEDTIME BRIDGER Olanzapine (Olanzapine 2.5 Mg Tablet) 7.5 mg PO BEDTIME BRIDGER Roflumilast (Roflumilast 500 Mcg Tablet) 500 mcg PO DAILY BRIDGER Sertraline HCl (Sertraline Hcl 100 Mg Tablet) 100 mg PO DAILY BRIDGER Sodium Chloride (0.9 % Sodium Chloride Flush 3 Ml Syringe) 3 ml IVFLUSH QSHIFT [facility] Home Medications ?Medication ?Instructions ?Recorded ?Confirmed ?Last Taken ?Type albuterol sulfate 2.5 mg/3 mL 2.5 mg inhalation QID PRN Wheezing 08/25/20 10/18/24 Unknown History (0.083 %) solution for nebulization fluticasone fur. 200 mcg-umeclid 1 ea inhalation DAILY 01/05/24 10/18/24 10/09/24 History 62.5 mcg-vilant 25 mcg inhalat.powder (Trelegy Ellipta) albuterol sulfate 90 mcg/actuation 2 puff inhalation Q6H PRN 06/16/24 10/18/24 Unknown History aerosol inhaler (Ventolin HFA) Shortness Of Breath Or Wheezing mirtazapine 15 mg tablet 15 mg PO BEDTIME 06/16/24 10/18/24 10/08/24 History roflumilast 500 mcg tablet 500 mcg PO DAILY 06/16/24 10/18/24 10/09/24 History clonazepam 0.5 mg tablet 0.5 mg PO DAILY PRN Anxiety 09/08/24 10/18/24 09/07/24 History Physical Exam 2 Vital Signs and Narrative: Vital Signs: Last Vital Signs Temp 97.3 F 12/02/24 20:17 Pulse 130 H 12/02/24 20:17 Resp 13 12/02/24 20:17 BP 111/62 12/02/24 20:17 Pulse Ox 95 12/02/24 20:17 O2 Del Method Nasal Cannula 12/02/24 20:17 O2 Flow Rate 3 12/02/24 20:17 Oxygen Flow Rate 2 12/02/24 16:09 BMI result Body Mass Index 20.4 Gen: Appears be in no acute distress HEENT: NCAT, Moist mucosa. Pulmonary: Bilateral wheezing present CVS: Normal S1-S2 Abdomen: BS+, Soft, Nontender Extremities: Warm well perfused Neuro: Alert and awake. Results Labs 12/02/24 16:48 12/02/24 16:48 Labs: Laboratory Results - last 24 hr 12/02/24 12/02/24 16:48 Unknown MCV 96.0 MCH 30.5 MCHC 31.8 RDW 14.2 Plt Count 141 L MPV 9.9 Immature Gran % (Auto) 0.2 Neut % (Auto) 85.7 H Lymph % (Auto) 6.9 L [place] % (Auto) 6.2 Eos % (Auto) 0.5 Baso % (Auto) 0.5 Lymph # (Auto) 0.4 L [place] # (Auto) 0.3 Eos # (Auto) 0.0 Baso # (Auto) 0.0 Abs Immat Gran (auto) 0.01 Absolute Neuts (auto) 4.7 Absolute Nucleated RBC 0.000 Nucleated RBC % (auto) 0.0 Anion Gap 16 Estim Creat Clear Calc 55.8 Estimated GFR > 60 Random Glucose 159 H Calcium 9.0 B-Natriuretic Peptide 290 H Influenza Type A (PCR) NEGATIVE Influenza Type B (PCR) NEGATIVE RSV RNA Qual (PCR) NEGATIVE SARS-CoV-2 RNA (RT-PCR) NEGATIVE Assessment and Plan (1) COPD (chronic obstructive pulmonary disease): Qualifiers: COPD type: unspecified COPD Qualified Code(s): J44.9 - Chronic obstructive pulmonary disease, unspecified Status: Acute Plan 69-year-old female with a past medical history of COPD, chronic respiratory failure on 2 L of home oxygen, neuropathy, protein calorie malnutrition, anxiety, depression presented to the hospital with a chief complaint of cough and shortness of breath. Noted to be in acute COPD exacerbation. Acute COPD exacerbation: Chronic respiratory failure: Continue home supplemental oxygen with goal oxygen saturation of 88-92% Continue nebulizations standing and p.r.n. Solu-Medrol Azithromycin Trending pulse oximetry when ready for discharge New onset AFib with RVR: Patient noted to be in new onset AFib with heart rate as high as 150s. Given metoprolol. Telemetry Echocardiogram Cardiology consult Will defer to Cardiology in regards anticoagulation. History of anxiety: Continue home Klonopin DVT prophylaxis: Lovenox Code status: Full code Quality Stroke Does the patient have a stroke diagnosis?: No VTE Prior VTE?: No VTE Risk Level:: Medical - moderate - high VTE Device Contraindication: Treatment Not Indicated VTE Drug Contraindication: N/A - Med Ordered
--- NOTE | 2024-12-02 20:22 | PC.NURSE ---
Pts HR increased to 200 when transferring from the bed to the commode. HR decreased to 130-150's when pt returned to bed. Dr. Khan made aware.
[2024-12-02] MEDS: Azithromycin 500 MG TABLET PO (20:28)
[2024-12-02] MEDS: OLANZapine 2.5 MG TABLET 7.5 MG PO (20:28)
[2024-12-02] MEDS: Mirtazapine 15 MG TABLET PO (20:28)
--- NOTE | 2024-12-02 20:46 | ECG_ITS ---
Test Reason : repeat Blood Pressure : */* mmHG Vent. Rate : 136 BPM Atrial Rate : 136 BPM P-R Int : 134 ms QRS Dur : 78 ms QT Int : 294 ms P-R-T Axes : 79 62 63 degrees QTcB Int : 442 ms Sinus tachycardia with Premature supraventricular complexes Otherwise normal ECG When compared with ECG of 02-Dec-2024 19:14, No significant change was found Referred By: Jessie Khan Electronically Signed By: MARIA ISABEL SY
[2024-12-02] MEDS: Metoprolol Tartrate 5 MG/5 ML VIAL IVPUSH (20:53)
--- NOTE | 2024-12-02 21:02 | MHC.EDTECH ---
Patient used commode
[2024-12-02] MEDS: Metoprolol Tartrate 25 MG TABLET PO (21:40)
[2024-12-02] MEDS: Enoxaparin Sodium 40 MG/0.4 ML SYRINGE SUBCUT (21:41)
[2024-12-02] MEDS: methylPREDNISolone Sod Succ 40 MG/ML VIAL IVPUSH (22:59)
[2024-12-02] MEDS: 0.9 % Sodium Chloride Flush 3 ML SYRINGE IVFLUSH (23:02)
[2024-12-03] VITALS (10 sets, daily range): BP systolic 87–162; BP diastolic 53–74; PULSE 63–78; RESP 14–20; TEMP 35.9–36.7; O2SAT 94–98
[2024-12-03] MEDS: clonazePAM 0.5 MG TABLET PO ×3 (01:38→20:12)
[2024-12-03] MEDS: Melatonin 3 MG TABLET 6 MG PO (01:38)
[2024-12-03] MEDS: Albuterol/Iprat 2.5/0.5MG 3 ML AMPUL.NEB INHALE ×3 (04:10→21:00)
[2024-12-03] MEDS: methylPREDNISolone Sod Succ 40 MG/ML VIAL IVPUSH ×4 (04:12→23:31)
[2024-12-03] MEDS: Levothyroxine Sodium 125 MCG TABLET PO (05:14)
--- NOTE | 2024-12-03 07:00 | CA_ITS ---
Transthoracic Echocardiogram Patient (Last, First, Middle): Gisela Amaya M Gender: Female Date of : 1955 Age: 69 Procedure Date: 12/03/2024 Procedure Type: Transthoracic Echocardiogram Location: [facility] [place] Height: 160.02 cm Weight: 53.07 kg BSA: 1.54 m2 Heart Rate: 62 bpm BP: 162 / 74 mmHg Leak [employer]: GERONIMO Referring MD: Jl Krishnan MD Symptoms: afib rvr Study Quality: Technically Difficult ECG Rhythm: Sinus Conclusions: - The left ventricular systolic function is hyperdynamic. The visually estimated ejection fraction is >70%. - Possible basal inferior/ inferolateral hypokinesis. - There is moderate calcification of the aortic valve. There is mild aortic valve stenosis. - There is moderate mitral annular calcification. Findings Left Ventricle Normal left ventricular cavity size. There is normal left ventricular wall thickness. The left ventricular systolic function is hyperdynamic. The visually estimated ejection fraction is >70%. Diastolic function is normal for age. Possible basal inferior/ inferolateral hypokinesis. Right Ventricle Mildly increased right ventricular cavity size. There is normal right ventricular systolic function. Atria The left atrium is moderately dilated. The right atrium is normal in size. Aortic Valve There is moderate calcification of the aortic valve. There is mild aortic valve stenosis. There is trace (trivial) aortic valve regurgitation. Mitral Valve There is mild anterior mitral leaflet thickening. There is moderate mitral annular calcification. There is no mitral valve regurgitation. There is no mitral valve stenosis. Pulmonic Valve The pulmonic valve is likely normal. Tricuspid Valve There is trace tricuspid valve regurgitation. There is no evidence of pulmonary hypertension. Great Vessels The asc aorta is normal in size. Moderate plaque is seen in the sino tubular ridge. Venous The inferior vena cava is normal in size and collapses less than 50% with inspiration. Pericardium/Pleural There is no evidence of pericardial effusion. Prior Study Comparison No significant change compared to prior study dated: 09/12/2024. Measurements 2D Linear Measurements IVSd: 0.93 0.6-0.9/0.6-1.0 cm LVIDd: 4.00 3.9-5.3/4.2-5.9 cm LVIDd Index: 2.60 2.4-3.2/2.2-3.1 cm/m2 LVIDs: 2.73 2.0-3.6 cm LVPWd: 1.00 0.7-1.1 cm LA Diam: 3.20 2.7-3.8/3.0-4.0 cm LAIDs Index: 2.08 1.5-2.3 cm/m2 LV Mass: 149.76 67-162/88-224 g LV Mass Index: 97.25 43-95/49-115 g/m2 LVOT Diam: 2.00 3.0+(-)1.3 cm 2D Systolic Function EF 4C: 74.30 >55% EF 2C: 71.00 >55% EF BiP: 72.70 >55% Mitral Valve MV Pk E: 1.09 MV PK A: 0.88 MV Decel Time: 198.00 E/A: 1.20 E'Lateral: 6.64 E'Medial: 5.77 E/E' Med: 18.90 E/E' Lat: 16.40 PHT: 58.00 MVA PHT: 3.79 Decel Wallace: 5.52 Aortic Valve AoV Pk Cristiano: 1.98 AoV Mn Cristiano: 1.55 AoV VTI: 0.51 AoV Pk Grad: 16.00 Aov Mn Grad: 10.00 MELISA Cont.VTI: 1.80 LVOT LVOT Pk Cristiano: 1.31 LVOT Mn Cristiano: 0.88 LVOT VTI: 0.29 LVOT Pk Grad: 7.00 LVOT Mn Grad: 4.00 LVOT Diam: 2.00 LVOT Area: 3.14 Diastolic Function MV Pk E: 1.09 MV Pk A: 0.88 E/A: 1.20 E'Medial: 5.77 E/E' Med: 18.90 E' Laterial: 6.64 E/E' Lat: 16.40 Right Ventricle TAPSE (mm): 26.10 TVS' Cristiano: 10.30 Tricuspid Valve TR Pk Cristiano: 2.48 TR Pk Grad: 25.00 RA Press: 8.00 RVSP: 33.00 Great Vessels Aorta Sinus of Valsalva: 3.30 2.0-3.5 cm Ao Asc: 2.60 2.1-3.4 cm Pulmonary Valve PV Pk Cristiano: 0.79 Peak PV Grad: 2.00 Updated in Other Vendor System with Status of Final Franck Wild MD electronically signed on 12/04/2024 9:49:18 AM with status of Final
[2024-12-03] MEDS: Sertraline HCL 100 MG TABLET PO (08:01)
[2024-12-03] MEDS: Clopidogrel Bisulfate 75 MG TABLET PO (08:01)
[2024-12-03] MEDS: 0.9 % Sodium Chloride Flush 3 ML SYRINGE IVFLUSH ×2 (08:01→20:14)
[2024-12-03] MEDS: Roflumilast 500 MCG TABLET PO (08:01)
[2024-12-03] MEDS: Metoprolol Tartrate 25 MG TABLET PO ×2 (08:01→20:13)
--- NOTE | 2024-12-03 09:01 | MHC.CM.PN ---
IMM 12/03/24, Pt lives with her sister, she does not have home health services, for DME, she has home O2 from [employer], and a nebulizer. PCP is confirmed Eddie Watkins, HCP is confirmed and on file: Shanel. Pt. may need assistance with transportation home. DCP: home, self care. CM to follow for DC needs.
[2024-12-03 09:42] LABS: Hematocrit 35.6 % (37.0-47.0); Hemoglobin 11.3 g/dl (12.0-16.0); Imm Gran Abs Auto 0.02 X10*3/uL (0.00-0.03); Imm Gran Pct Auto 0.5 % (0.0-0.4); Lymphocytes Absolute Auto 0.2 X10*3/uL (1.2-4.9); MANUAL DIFF FLAG SCAN; Mean Corpuscular HGB Conc 31.7 g/dl (31.0-35.0); Mean Corpuscular Hemoglobin 30.5 pg (27.0-33.0); Mean Corpuscular Volume 96.2 fL (80.0-98.0); Mean Platelet Volume 10.5 fL (9.4-12.3); Monocytes Absolute Auto 0.1 X10*3/uL (0.1-1.2); Neutrophils Absolute Auto 3.7 x10*3/uL (2.0-8.3); Neutrophils Percent Auto 91.5 % (45-73); Platelet Count 123 X10*3/uL (160-400); Red Cell Distribution Width 14.1 % (11.0-16.0); SCAN SMEAR FLAG 1
--- NOTE | 2024-12-03 09:43 | PHA.MEDREC ---
Addendum entered by Maribel Boss RPh 12/03/24 10:36: Reviewed by [facility]. Pt is taking 0.5mg TID prn anxiety, and taking sertraline 125mg QD. Original Note: Pharmacy Consult ? Medication Reconciliation Pharmacy has completed the medication reconciliation. Spoke with patient and she was able to confirm her medications. Patient stated she is taking her Clonazepam 0.5mg tab 1 tab (0.5mg) three times a day as needed; in claims the directions are 1/2 tab TID as needed but patient claims she does not cut the tabs in half. She also confirmed the Sertraline 25mg tab and states she takes 1 tablet with the 100mg tab daily; in claims it looks like the patient was suppose to cut 1 tablet in half and after calling [facility] the directions from them state to cut 1 tablet in half and take with 100mg tab for TDD of 112.5mg daily.
[2024-12-03 09:47] LABS: Alanine Aminotransferase 21 U/L (0-31); Albumin Level 3.7 g/dL (3.5-5.0); Alkaline Phosphatase 239 U/L (39-117); Anion Gap 13 (12-20); Aspartate Amino Transferase 31 U/L (5-31); Bilirubin Total 0.4 mg/dL (0.0-1.0); Blood Urea Nitrogen 15 mg/dL (9-16); Calcium 8.9 mg/dL (8.4-10.2); Carbon Dioxide 28 mmol/L (22-29); Chloride 103 mmol/L (96-108); Creatinine Clr Calc Pharmacy 59.2; Estimated Glomerular Filt Rate > 60; Glucose Random 149 mg/dL (60-115); Potassium 3.8 mmol/L (3.3-5.1); Sodium 140 mmol/L (135-145); Total Protein 5.9 g/dL (6.5-8.0)
[2024-12-03 10:35] LABS: SLIDE REVIEW VERIFIED
--- NOTE | 2024-12-03 11:30 | P.PNIM_ITS ---
Subjective Subjective Date of Service: 12/03/24 Review of Systems Positive shortness of breath positive COPD, she claims to have stopped smoking few weeks ago Physical Exam 2 Vital Signs: Vital Signs: Last Vital Signs Temp 97.0 F 12/03/24 11:10 Pulse 63 12/03/24 11:10 Resp 14 12/03/24 11:10 BP 90/54 L 12/03/24 11:10 Pulse Ox 95 12/03/24 11:10 O2 Del Method Nasal Cannula 12/03/24 11:10 O2 Flow Rate 2 12/03/24 11:10 Oxygen Flow Rate 2 12/02/24 16:09 BMI result Body Mass Index 20.9 Const: Other: General: AO X 3, no acute distress Resp: CTA bilateral CVS: S1,S2,RRR GI: +BS, NT, no distention Skin: No rash Neuro: motor grossly intact Psych: appropriate affect Objective Data Active Medications Acetaminophen (Acetaminophen 325 Mg Tablet) 650 mg PO Q6H PRN PRN Reason: Pain, Mild 1-3,fever,headache Albuterol/Ipratropium (Albuterol/Iprat 2.5/0.5mg 3 Ml Ampul.Neb) 3 ml INHALE Q4H PRN PRN Reason: Shortness of Breath/Wheezing Last Admin: 12/03/24 04:10 Dose: 3 ml Documented By: NAYELY Albuterol/Ipratropium (Albuterol/Iprat 2.5/0.5mg 3 Ml Ampul.Neb) 3 ml INHALE RQ4H WHILE AWAKE [facility] Last Admin: 12/03/24 07:52 Dose: 3 ml Documented By: TRINITY Azithromycin (Azithromycin 500 Mg Tablet) 500 mg PO Q24H [facility] Last Admin: 12/02/24 20:28 Dose: 500 mg Documented By: ANGELICA Benzonatate (Benzonatate 100 Mg Capsule) 100 mg PO TID PRN PRN Reason: Cough Calcium Carbonate (Calcium Carbonate 750 Mg Tab.Chew) 750 mg PO Q4H PRN PRN Reason: Heartburn Clonazepam (Clonazepam 0.5 Mg Tablet) 0.5 mg PO TID PRN PRN Reason: Anxiety Clopidogrel Bisulfate (Clopidogrel Bisulfate 75 Mg Tablet) 75 mg PO DAILY [facility] Last Admin: 12/03/24 08:01 Dose: 75 mg Documented By: KEYSHAWN Enoxaparin Sodium (Enoxaparin Sodium 40 Mg/0.4 Ml Syringe) 40 mg SUBCUT Q24H [facility] Last Admin: 12/02/24 21:41 Dose: 40 mg Documented By: ANGELICA Levothyroxine Sodium (Levothyroxine Sodium 125 Mcg Tablet) 125 mcg PO DAILY@0600 [facility] Last Admin: 12/03/24 05:14 Dose: 125 mcg Documented By: ZULEIKA Magnesium Hydroxide (Milk Of Magnesia 30 Ml Oral.Susp) 30 ml PO DAILY PRN PRN Reason: Constipation Meclizine HCl (Meclizine Hcl 25 Mg Tablet) 25 mg PO Q8H PRN PRN Reason: Vertigo Melatonin (Melatonin 3 Mg Tablet) 6 mg PO BEDTIME PRN PRN Reason: Insomnia Last Admin: 12/03/24 01:38 Dose: 6 mg Documented By: ZULEIKA Methylprednisolone Sodium Succinate (Methylprednisolone Sod Succ 40 Mg/Ml Vial) 40 mg IVPUSH Q6H [facility] Last Admin: 12/03/24 04:12 Dose: 40 mg Documented By: ZULEIKA Metoprolol Tartrate (Metoprolol Tartrate 5 Mg/5 Ml Vial) 5 mg IVPUSH Q6H PRN; Protocol PRN Reason: Heart Rate >100 Metoprolol Tartrate (Metoprolol Tartrate 25 Mg Tablet) 25 mg PO BID [facility]; Protocol Last Admin: 12/03/24 08:01 Dose: 25 mg Documented By: KEYSHAWN Mirtazapine (Mirtazapine 15 Mg Tablet) 15 mg PO BEDTIME [facility] Last Admin: 12/02/24 20:28 Dose: 15 mg Documented By: ANGELICA Olanzapine (Olanzapine 2.5 Mg Tablet) 7.5 mg PO BEDTIME [facility] Last Admin: 12/02/24 20:28 Dose: 7.5 mg Documented By: ANGELICA Roflumilast (Roflumilast 500 Mcg Tablet) 500 mcg PO DAILY [facility] Last Admin: 12/03/24 08:01 Dose: 500 mcg Documented By: KEYSHAWN Sertraline HCl (Sertraline Hcl 100 Mg Tablet) 100 mg PO DAILY [facility] Last Admin: 12/03/24 08:01 Dose: 100 mg Documented By: KEYSHAWN Sodium Chloride (0.9 % Sodium Chloride Flush 3 Ml Syringe) 3 ml IVFLUSH QSHIFT [facility] Last Admin: 12/03/24 08:01 Dose: 3 ml Documented By: KEYSHAWN Labs 12/03/24 08:48 12/03/24 08:48 Labs: Laboratory Results - last 24 hr 12/02/24 12/02/24 12/03/24 16:48 Unknown 08:48 MCV 96.0 96.2 MCH 30.5 30.5 MCHC 31.8 31.7 RDW 14.2 14.1 Plt Count 141 L 123 L MPV 9.9 10.5 Immature Gran % (Auto) 0.2 0.5 H Neut % (Auto) 85.7 H 91.5 H Lymph % (Auto) 6.[address] [place] % (Auto) 6.2 3.0 Eos % (Auto) 0.5 0.0 Baso % (Auto) 0.5 0.0 Lymph # (Auto) 0.[address] [place] # (Auto) 0.3 0.1 Eos # (Auto) 0.0 0.0 Baso # (Auto) 0.0 0.0 Abs Immat Gran (auto) 0.01 0.02 Absolute Neuts (auto) 4.7 3.7 Absolute Nucleated RBC 0.000 0.000 Nucleated RBC % (auto) 0.0 0.0 Smear Tech's Comments VERIFIED Anion Gap 16 13 Estim Creat Clear Calc 55.8 59.2 Estimated GFR > 60 > 60 Random Glucose 159 H 149 H Calcium 9.0 8.9 Total Bilirubin 0.4 AST 31 ALT 21 Alkaline Phosphatase 239 H B-Natriuretic Peptide 290 H Total Protein 5.9 L Albumin 3.7 Influenza Type A (PCR) NEGATIVE Influenza Type B (PCR) NEGATIVE RSV RNA Qual (PCR) NEGATIVE SARS-CoV-2 RNA (RT-PCR) NEGATIVE Assessment and Plan (1) Chronic respiratory failure with hypoxia: Status: Acute (2) COPD exacerbation: Status: Acute (3) Tachycardia: Status: Acute Plan 69-year-old female with a past medical history of COPD, chronic respiratory failure on 2 L of home oxygen, neuropathy, protein calorie malnutrition, anxiety, depression presented to the hospital with a chief complaint of cough and shortness of breath. Noted to be in acute COPD exacerbation. Acute COPD exacerbation, acute on chronic respiatory failure. Continue hosupplemental oxygen with goal oxygen saturation of 88-92% Continue nebulizations standing and p.r.n. Solu-Medrol Azithromycin empirically for bronchitis tobacco avoidance discussed in details Tachcardia, initially interpreted as AFIB with RVR but appear to be sinus tachyhcardia with PSC Close review of ECG show well discernible P waves throught and official cardiology read show no AFIB Tachycardia has since improved. Given these finding, cardiology consultation no longer warranted. Opiate dependence Continue Suboxone Mood disorder/anxeity Continue olanzapine, clonazepam - 0.5mg tid prn Hypertension Lisinopril, metoprolol Peripheral vascular disease Continue Plavix DVT prophylaxis: Lovenox Code status: Full code Quality Stroke Does the patient have a stroke diagnosis?: No VTE Prior VTE?: No VTE Risk Level:: Medical - moderate - high VTE Device Contraindication: Treatment Not Indicated VTE Drug Contraindication: N/A - Med Ordered
[2024-12-03] MEDS: Fluticasone/Umeclidinium/Vilanterol 200/62.5/25 BLST.W.DEV 1 PUFF INHALE (13:39)
[2024-12-03] MEDS: Buprenorphine/Naloxone 12/3 mg FILM 1 FILM SUBLINGUAL (15:34)
[2024-12-03 17:20] LABS: Appearance Urine Clear; Color Urine Yellow; Glucose Urine UA Negative (Negative); Leukocyte Esterase Urine Small (1+) (Negative); Nitrite Urine Negative (Negative); PH 6.5 (5.0-9.0); Specific Gravity - Urine 1.015 (1.005-1.025); UMIC TRIGGER UACC YES; Urine Blood Negative (Negative); Urine Ketones Negative (Negative); Urine Protein Negative (Neg-Trace)
[2024-12-03 17:34] LABS: Bacteria Urine None Seen (None Seen); Hyaline Casts Urine 0-2 /LPF (0-2); RBC Urine 0-2 /HPF (0-2); UACC Culture Trigger YES; WBC Urine 0-5 /HPF (0-5)
[2024-12-03] MEDS: OLANZapine 2.5 MG TABLET 7.5 MG PO (20:12)
[2024-12-03] MEDS: Azithromycin 500 MG TABLET PO (20:13)
[2024-12-03] MEDS: Mirtazapine 15 MG TABLET PO (20:13)
[2024-12-03] MEDS: Enoxaparin Sodium 40 MG/0.4 ML SYRINGE SUBCUT (23:31)
[2024-12-04] VITALS (10 sets, daily range): BP systolic 111–164; BP diastolic 51–79; PULSE 64–88; RESP 14–22; TEMP 36.1–36.6; O2SAT 93–97
[2024-12-04] MEDS: methylPREDNISolone Sod Succ 40 MG/ML VIAL IVPUSH ×4 (05:19→22:58)
[2024-12-04] MEDS: clonazePAM 0.5 MG TABLET PO ×3 (05:22→20:57)
[2024-12-04] MEDS: Levothyroxine Sodium 125 MCG TABLET PO (05:22)
[2024-12-04] MEDS: Albuterol/Iprat 2.5/0.5MG 3 ML AMPUL.NEB INHALE ×4 (08:06→18:54)
[2024-12-04] MEDS: Fluticasone/Umeclidinium/Vilanterol 200/62.5/25 BLST.W.DEV 1 PUFF INHALE (08:06)
[2024-12-04] MEDS: Clopidogrel Bisulfate 75 MG TABLET PO (08:58)
[2024-12-04] MEDS: Roflumilast 500 MCG TABLET PO (08:58)
[2024-12-04] MEDS: Buprenorphine/Naloxone 12/3 mg FILM 1 FILM SUBLINGUAL (08:58)
[2024-12-04] MEDS: lisinopriL 10 MG TABLET PO (08:59)
[2024-12-04] MEDS: Sertraline HCL 100 MG TABLET PO (08:59)
[2024-12-04] MEDS: 0.9 % Sodium Chloride Flush 3 ML SYRINGE IVFLUSH ×3 (08:59→20:49)
[2024-12-04] MEDS: Metoprolol Tartrate 25 MG TABLET PO ×2 (08:59→20:50)
--- NOTE | 2024-12-04 11:34 | P.PNIM_ITS ---
Subjective Subjective Date of Service: 12/04/24 Review of Systems Still short of breath and seems very anxious Physical Exam 2 Vital Signs: Vital Signs: Last Vital Signs Temp 97.1 F 12/04/24 08:00 Pulse 78 12/04/24 11:17 Resp 14 12/04/24 11:17 BP 164/79 H 12/04/24 08:59 Pulse Ox 94 12/04/24 08:00 O2 Del Method Nasal Cannula 12/04/24 08:00 O2 Flow Rate 2 12/04/24 08:00 Oxygen Flow Rate 2 12/02/24 16:09 BMI result Body Mass Index 20.9 Const: Other: General: AO X 3, no acute distress Resp: CTA left sided wheezing CVS: S1,S2,RRR GI: +BS, NT, no distention Skin: No rash Neuro: motor grossly intact Psych: appropriate affect Objective Data Active Medications Acetaminophen (Acetaminophen 325 Mg Tablet) 650 mg PO Q6H PRN PRN Reason: Pain, Mild 1-3,fever,headache Albuterol/Ipratropium (Albuterol/Iprat 2.5/0.5mg 3 Ml Ampul.Neb) 3 ml INHALE Q4H PRN PRN Reason: Shortness of Breath/Wheezing Last Admin: 12/03/24 04:10 Dose: 3 ml Documented By: NAYELY Albuterol/Ipratropium (Albuterol/Iprat 2.5/0.5mg 3 Ml Ampul.Neb) 3 ml INHALE RQ4H WHILE AWAKE [facility] Last Admin: 12/04/24 11:17 Dose: 3 ml Documented By: JOSE CARLOS Azithromycin (Azithromycin 500 Mg Tablet) 500 mg PO Q24H [facility] Last Admin: 12/03/24 20:13 Dose: 500 mg Documented By: OCTAVIANO Benzonatate (Benzonatate 100 Mg Capsule) 100 mg PO TID PRN PRN Reason: Cough Buprenorphine/Naloxone (Buprenorphine/Naloxone 12/3 Mg Film) 1 film SUBLINGUAL DAILY [facility] Last Admin: 12/04/24 08:58 Dose: 1 film Documented By: MARCY Calcium Carbonate (Calcium Carbonate 750 Mg Tab.Chew) 750 mg PO Q4H PRN PRN Reason: Heartburn Clonazepam (Clonazepam 0.5 Mg Tablet) 0.5 mg PO Q6H PRN PRN Reason: Anxiety Clopidogrel Bisulfate (Clopidogrel Bisulfate 75 Mg Tablet) 75 mg PO DAILY [facility] Last Admin: 12/04/24 08:58 Dose: 75 mg Documented By: MARCY Enoxaparin Sodium (Enoxaparin Sodium 40 Mg/0.4 Ml Syringe) 40 mg SUBCUT Q24H [facility] Last Admin: 12/03/24 23:31 Dose: 40 mg Documented By: GABY Fluticasone/Umeclidinium/Vilanterol (Fluticasone/Umeclidinium/Vilanterol 200/62.5/25 Blst.W.Dev) 1 puff INHALE RDAILY [facility] Last Admin: 12/04/24 08:06 Dose: 1 puff Documented By: JOSE CARLOS Guaifenesin (Guaifenesin La 600 Mg Tab.Er.12h) 600 mg PO BID PRN PRN Reason: Cough Levothyroxine Sodium (Levothyroxine Sodium 125 Mcg Tablet) 125 mcg PO DAILY@0600 [facility] Last Admin: 12/04/24 05:22 Dose: 125 mcg Documented By: OCTAVIANO Lisinopril (Lisinopril 10 Mg Tablet) 10 mg PO DAILY [facility]; Protocol Last Admin: 12/04/24 08:59 Dose: 10 mg Documented By: MARCY Magnesium Hydroxide (Milk Of Magnesia 30 Ml Oral.Susp) 30 ml PO DAILY PRN PRN Reason: Constipation Meclizine HCl (Meclizine Hcl 25 Mg Tablet) 25 mg PO Q8H PRN PRN Reason: Vertigo Melatonin (Melatonin 3 Mg Tablet) 6 mg PO BEDTIME PRN PRN Reason: Insomnia Last Admin: 12/03/24 01:38 Dose: 6 mg Documented By: ZULEIKA Methylprednisolone Sodium Succinate (Methylprednisolone Sod Succ 40 Mg/Ml Vial) 40 mg IVPUSH Q6H [facility] Last Admin: 12/04/24 05:19 Dose: 40 mg Documented By: OCTAVIANO Metoprolol Tartrate (Metoprolol Tartrate 5 Mg/5 Ml Vial) 5 mg IVPUSH Q6H PRN; Protocol PRN Reason: Heart Rate >100 Metoprolol Tartrate (Metoprolol Tartrate 25 Mg Tablet) 25 mg PO BID [facility]; Protocol Last Admin: 12/04/24 08:59 Dose: 25 mg Documented By: MARCY Mirtazapine (Mirtazapine 15 Mg Tablet) 15 mg PO BEDTIME [facility] Last Admin: 12/03/24 20:13 Dose: 15 mg Documented By: OCTAVIANO Olanzapine (Olanzapine 2.5 Mg Tablet) 7.5 mg PO BEDTIME [facility] Last Admin: 12/03/24 20:12 Dose: 7.5 mg Documented By: OCTAVIANO Roflumilast (Roflumilast 500 Mcg Tablet) 500 mcg PO DAILY [facility] Last Admin: 12/04/24 08:58 Dose: 500 mcg Documented By: MARCY Sertraline HCl (Sertraline Hcl 100 Mg Tablet) 100 mg PO DAILY [facility] Last Admin: 12/04/24 08:59 Dose: 100 mg Documented By: MARCY Sodium Chloride (0.9 % Sodium Chloride Flush 3 Ml Syringe) 3 ml IVFLUSH QSHIFT [facility] Last Admin: 12/04/24 08:59 Dose: 3 ml Documented By: MARCY Labs 12/03/24 08:48 12/03/24 08:48 Labs: Laboratory Results - last 24 hr 12/03/24 16:29 Urine Color Yellow Urine Appearance Clear Urine pH 6.5 Ur Specific [place] 1.015 Urine Protein Negative Urine Glucose (UA) Negative Urine Ketones Negative Urine Blood Negative Urine Nitrite Negative Ur Leukocyte Esterase Small (1+) H Urine RBC 0-2 Urine WBC 0-5 Ur Squamous Epith Cells 3-5 Urine Bacteria None Seen Hyaline Casts 0-2 Microbiology Microbiology Results: Microbiology 12/03/24 Unknown Urine Culture - Preliminary Urine clean catch - Clean Catch Midstream Culture too young to evaluate. Assessment and Plan (1) Chronic respiratory failure with hypoxia: Status: Acute (2) COPD exacerbation: Status: Acute (3) Tachycardia: Status: Acute Plan 69-year-old female with a past medical history of COPD, chronic respiratory failure on 2 L of home oxygen, neuropathy, protein calorie malnutrition, anxiety, depression presented to the hospital with a chief complaint of cough and shortness of breath. Noted to be in acute COPD exacerbation. Acute COPD exacerbation, acute on chronic respiatory failure. Continue hosupplemental oxygen with goal oxygen saturation of 88-92% Continue nebulizations standing and p.r.n. Solu-Medrol for 1 more day then change to PO Azithromycin empirically for bronchitis tobacco avoidance discussed in details Tachcardia, initially interpreted as AFIB with RVR but appear to be sinus tachyhcardia with PSC Close review of ECG show well discernible P waves throught and official cardiology read show no AFIB Tachycardia has since improved. Given these finding, cardiology consultation no longer warranted. Opiate dependence Continue Suboxone Mood disorder/anxeity Continue olanzapine, clonazepam - 0.5mg tid prn, change to q6 prn Hypertension Lisinopril, metoprolol Peripheral vascular disease Continue Plavix DVT prophylaxis: Lovenox Code status: Full code Quality Stroke Does the patient have a stroke diagnosis?: No VTE Prior VTE?: No VTE Risk Level:: Medical - moderate - high VTE Device Contraindication: Treatment Not Indicated VTE Drug Contraindication: N/A - Med Ordered
--- NOTE | 2024-12-04 13:31 | MHC.CM.PN ---
Per EMR review, pt is not ready for DC, she requires ongoing treatment fo acute exacerbation of COPD. Pt very treay and anxious today, asking for something to reduce her anxiety.
[2024-12-04] MEDS: Enoxaparin Sodium 40 MG/0.4 ML SYRINGE SUBCUT (20:48)
[2024-12-04] MEDS: OLANZapine 2.5 MG TABLET 7.5 MG PO (20:49)
[2024-12-04] MEDS: Azithromycin 500 MG TABLET PO (20:49)
[2024-12-04] MEDS: Mirtazapine 15 MG TABLET PO (20:49)
[2024-12-04] MEDS: Melatonin 3 MG TABLET 6 MG PO (20:57)
[2024-12-04] MEDS: Acetaminophen 325 MG TABLET 650 MG PO (22:56)
[2024-12-05] VITALS (13 sets, daily range): BP systolic 92–143; BP diastolic 49–80; PULSE 59–73; RESP 16–18; TEMP 36.1–36.9; O2SAT 92–99
[2024-12-05] MEDS: Levothyroxine Sodium 125 MCG TABLET PO (05:37)
[2024-12-05] MEDS: methylPREDNISolone Sod Succ 40 MG/ML VIAL IVPUSH ×2 (05:37→17:17)
[2024-12-05] MEDS: Metoprolol Tartrate 25 MG TABLET PO (07:34)
[2024-12-05] MEDS: lisinopriL 10 MG TABLET PO (07:34)
[2024-12-05] MEDS: Buprenorphine/Naloxone 12/3 mg FILM 1 FILM SUBLINGUAL (07:34)
[2024-12-05] MEDS: clonazePAM 0.5 MG TABLET PO ×4 (07:35→20:42)
[2024-12-05] MEDS: Roflumilast 500 MCG TABLET PO (07:35)
[2024-12-05] MEDS: Acetaminophen 325 MG TABLET 650 MG PO (07:35)
[2024-12-05] MEDS: Clopidogrel Bisulfate 75 MG TABLET PO (07:35)
[2024-12-05] MEDS: 0.9 % Sodium Chloride Flush 3 ML SYRINGE IVFLUSH ×3 (07:35→20:25)
[2024-12-05] MEDS: Sertraline HCL 100 MG TABLET PO (07:35)
[2024-12-05] MEDS: Fluticasone/Umeclidinium/Vilanterol 200/62.5/25 BLST.W.DEV 1 PUFF INHALE (08:10)
[2024-12-05] MEDS: Albuterol/Iprat 2.5/0.5MG 3 ML AMPUL.NEB INHALE ×4 (08:10→21:20)
--- NOTE | 2024-12-05 12:10 | P.PNIM_ITS ---
Subjective Subjective Date of Service: 12/05/24 Interval History: seen and evalauted feels weak and dyspneic denies fever ro chills no other events Review of Systems Review of Systems: Yes all other systems are reviewed and are negative Physical Exam 2 Vital Signs: Vital Signs: Last Vital Signs Temp 97.1 F 12/05/24 07:25 Pulse 73 12/05/24 11:26 Resp 18 12/05/24 11:26 BP 139/80 12/05/24 07:34 Pulse Ox 99 12/05/24 07:25 O2 Del Method Nasal Cannula 12/05/24 07:25 O2 Flow Rate 2 12/05/24 07:25 Oxygen Flow Rate 2 12/02/24 16:09 BMI result Body Mass Index 20.9 Const: Other: General: AO X 3, no acute distress, frail looking Resp: CTA left sided wheezing, on O2 supplement CVS: S1,S2,RRR GI: +BS, NT, no distention Skin: No rash Neuro: motor grossly intact Psych: appropriate affect Objective Data Active Medications Acetaminophen (Acetaminophen 325 Mg Tablet) 650 mg PO Q6H PRN PRN Reason: Pain, Mild 1-3,fever,headache Last Admin: 12/05/24 07:35 Dose: 650 mg Documented By: MARCY Albuterol/Ipratropium (Albuterol/Iprat 2.5/0.5mg 3 Ml Ampul.Neb) 3 ml INHALE Q4H PRN PRN Reason: Shortness of Breath/Wheezing Last Admin: 12/03/24 04:10 Dose: 3 ml Documented By: NAYELY Albuterol/Ipratropium (Albuterol/Iprat 2.5/0.5mg 3 Ml Ampul.Neb) 3 ml INHALE RQ4H WHILE AWAKE [facility] Last Admin: 12/05/24 11:24 Dose: 3 ml Documented By: YOGESH Azithromycin (Azithromycin 500 Mg Tablet) 500 mg PO Q24H [facility] Last Admin: 12/04/24 20:49 Dose: 500 mg Documented By: MELODY Benzonatate (Benzonatate 100 Mg Capsule) 100 mg PO TID PRN PRN Reason: Cough Buprenorphine/Naloxone (Buprenorphine/Naloxone 12/3 Mg Film) 1 film SUBLINGUAL DAILY [facility] Last Admin: 12/05/24 07:34 Dose: 1 film Documented By: MARCY Calcium Carbonate (Calcium Carbonate 750 Mg Tab.Chew) 750 mg PO Q4H PRN PRN Reason: Heartburn Clonazepam (Clonazepam 0.5 Mg Tablet) 0.5 mg PO Q6H PRN PRN Reason: Anxiety Last Admin: 12/05/24 07:35 Dose: 0.5 mg Documented By: MARCY Clopidogrel Bisulfate (Clopidogrel Bisulfate 75 Mg Tablet) 75 mg PO DAILY [facility] Last Admin: 12/05/24 07:35 Dose: 75 mg Documented By: MARCY Enoxaparin Sodium (Enoxaparin Sodium 40 Mg/0.4 Ml Syringe) 40 mg SUBCUT Q24H [facility] Last Admin: 12/04/24 20:48 Dose: 40 mg Documented By: MELODY Fluticasone/Umeclidinium/Vilanterol (Fluticasone/Umeclidinium/Vilanterol 200/62.5/25 Blst.W.Dev) 1 puff INHALE RDAILY [facility] Last Admin: 12/05/24 08:10 Dose: 1 puff Documented By: PAIGESTEMI Guaifenesin (Guaifenesin La 600 Mg Tab.Er.12h) 600 mg PO BID PRN PRN Reason: Cough Levothyroxine Sodium (Levothyroxine Sodium 125 Mcg Tablet) 125 mcg PO DAILY@0600 [facility] Last Admin: 12/05/24 05:37 Dose: 125 mcg Documented By: DAKSHA Lisinopril (Lisinopril 10 Mg Tablet) 10 mg PO DAILY [facility]; Protocol Last Admin: 12/05/24 07:34 Dose: 10 mg Documented By: MARCY Magnesium Hydroxide (Milk Of Magnesia 30 Ml Oral.Susp) 30 ml PO DAILY PRN PRN Reason: Constipation Meclizine HCl (Meclizine Hcl 25 Mg Tablet) 25 mg PO Q8H PRN PRN Reason: Vertigo Melatonin (Melatonin 3 Mg Tablet) 6 mg PO BEDTIME PRN PRN Reason: Insomnia Last Admin: 12/04/24 20:57 Dose: 6 mg Documented By: MELODY Methylprednisolone Sodium Succinate (Methylprednisolone Sod Succ 40 Mg/Ml Vial) 40 mg IVPUSH Q12H [facility] Metoprolol Tartrate (Metoprolol Tartrate 5 Mg/5 Ml Vial) 5 mg IVPUSH Q6H PRN; Protocol PRN Reason: Heart Rate >100 Metoprolol Tartrate (Metoprolol Tartrate 25 Mg Tablet) 25 mg PO BID [facility]; Protocol Last Admin: 12/05/24 07:34 Dose: 25 mg Documented By: MARCY Mirtazapine (Mirtazapine 15 Mg Tablet) 15 mg PO BEDTIME [facility] Last Admin: 12/04/24 20:49 Dose: 15 mg Documented By: MELODY Olanzapine (Olanzapine 2.5 Mg Tablet) 7.5 mg PO BEDTIME [facility] Last Admin: 12/04/24 20:49 Dose: 7.5 mg Documented By: MELODY Roflumilast (Roflumilast 500 Mcg Tablet) 500 mcg PO DAILY [facility] Last Admin: 12/05/24 07:35 Dose: 500 mcg Documented By: MARCY Sertraline HCl (Sertraline Hcl 100 Mg Tablet) 100 mg PO DAILY [facility] Last Admin: 12/05/24 07:35 Dose: 100 mg Documented By: MARCY Sodium Chloride (0.9 % Sodium Chloride Flush 3 Ml Syringe) 3 ml IVFLUSH QSHIFT [facility] Last Admin: 12/05/24 07:35 Dose: 3 ml Documented By: MARCY Labs 12/03/24 08:48 12/03/24 08:48 Microbiology Microbiology Results: Microbiology 12/03/24 Unknown Urine Culture - Final Urine clean catch - Clean Catch Midstream Assessment and Plan (1) Tachycardia: Status: Acute (2) COPD (chronic obstructive pulmonary disease): Status: Acute (3) Acute exacerbation of chronic obstructive pulmonary disease: Status: Acute (4) Acute and chronic respiratory failure with hypercapnia: Status: Acute (5) Frailty: Status: Acute Plan 69-year-old female with a past medical history of COPD, chronic respiratory failure on 2 L of home oxygen, neuropathy, protein calorie malnutrition, anxiety, depression presented to the hospital with a chief complaint of cough and shortness of breath. Noted to be in acute COPD exacerbation. Acute COPD exacerbation, acute on chronic respiatory failure. Continue supplemental oxygen with goal oxygen saturation of 88-92% Continue nebulizations standing and p.r.n. wean Methylpred down to Q12 today and switch to Prednisone PO tomorrow if better Azithromycin empirically for bronchitis tobacco avoidance discussed in details Frailty PT eval sinus tachyhcardia with [facility] official cardiology read show no AFIB improved. monitor Opiate dependence Continue Suboxone Mood disorder/anxeity Continue olanzapine, clonazepam - 0.5mg tid prn, change to q6 prn Hypertension Lisinopril, metoprolol Peripheral vascular disease Continue Plavix DVT prophylaxis: Lovenox Code status: Full code The patient will need overnight stay to continue treatment with IV steroids and nebulziers weaning down O2 as toelrated Quality Stroke Does the patient have a stroke diagnosis?: No VTE Prior VTE?: No VTE Risk Level:: Medical - moderate - high VTE Device Contraindication: Treatment Not Indicated VTE Drug Contraindication: N/A - Med Ordered
--- NOTE | 2024-12-05 15:22 | P.CDIM_ITS ---
PROVIDER RESPONSE TEXT: To clarify, the appropriate diagnosis supported by the clinical indicators: Acute on chronic QUERY TEXT: PHYSICIAN'S DOCUMENTATION REQUEST Date of Query: 12/05/2024 01:54 PM EDT Patient Name: Gisela Amaya Admit Date: 12/02/2024 Dear Jordin Yen MD, A review of the medical record indicates additional documentation may be needed. Please review below and update the documentation accordingly. Clinical Indicators: patient admitted with COPD exacerbation treated with oxygen, nebulizer, steroid Azithromycin empirically for bronchitis Clarify which of the following accurately represents the acuity of the Bronchitis. Possible options might include: Acute Acute on chronic Compensated Chronic stable condition Remission Other (explain) Clinically unable to determine (explain) Thank you, Hortencia Holbrook RN Use of terms such as suspected, likely, concern for, or probable (associated with a specific diagnosi s that is being evaluated, monitored, or treated as if it exists) are acceptable and can be coded in the inpatient se tting, when documented at the time of discharge. Please use your independent medical judgment in providing your response. THIS QUERY IS PART OF THE PERMANENT MEDICAL RECORD
[2024-12-05] MEDS: OLANZapine 7.5 MG TABLET PO (20:16)
[2024-12-05] MEDS: Azithromycin 500 MG TABLET PO (20:16)
[2024-12-05] MEDS: Mirtazapine 15 MG TABLET PO (20:16)
[2024-12-05] MEDS: Enoxaparin Sodium 40 MG/0.4 ML SYRINGE SUBCUT (20:17)
[2024-12-06] VITALS (11 sets, daily range): BP systolic 91–153; BP diastolic 53–68; PULSE 62–91; RESP 17–19; TEMP 36.1–36.8; O2SAT 91–95
[2024-12-06] MEDS: Acetaminophen 325 MG TABLET 650 MG PO (03:08)
[2024-12-06] MEDS: Levothyroxine Sodium 125 MCG TABLET PO (05:40)
[2024-12-06] MEDS: methylPREDNISolone Sod Succ 40 MG/ML VIAL IVPUSH ×2 (05:40→16:55)
[2024-12-06 06:03] LABS: MANUAL DIFF FLAG NO
[2024-12-06 06:08] LABS: Hematocrit 33.6 % (37.0-47.0); Imm Gran Abs Auto 0.02 X10*3/uL (0.00-0.03); Imm Gran Pct Auto 0.4 % (0.0-0.4); Lymphocytes Absolute Auto 0.7 X10*3/uL (1.2-4.9); Lymphocytes Percent Auto 14.7 % (20-40); Mean Corpuscular HGB Conc 32.7 g/dl (31.0-35.0); Mean Corpuscular Hemoglobin 31.7 pg (27.0-33.0); Mean Corpuscular Volume 96.8 fL (80.0-98.0); Mean Platelet Volume 10.2 fL (9.4-12.3); Monocytes Absolute Auto 0.4 X10*3/uL (0.1-1.2); Monocytes Percent Auto 8.6 % (2-11); Neutrophils Absolute Auto 3.8 x10*3/uL (2.0-8.3); Neutrophils Percent Auto 76.3 % (45-73); Platelet Count 111 X10*3/uL (160-400); Red Blood Count 3.47 X10*6/uL (4.20-5.50); Red Cell Distribution Width 14.6 % (11.0-16.0); White Blood Count 4.9 X10*3/uL (4.8-10.8)
[2024-12-06 06:26] LABS: Anion Gap 12 (12-20); Blood Urea Nitrogen 46 mg/dL (9-16); Calcium 8.7 mg/dL (8.4-10.2); Carbon Dioxide 28 mmol/L (22-29); Chloride 104 mmol/L (96-108); Creatinine Clr Calc Pharmacy 46.3; Estimated Glomerular Filt Rate > 60; Glucose Random 92 mg/dL (60-115); Potassium 4.5 mmol/L (3.3-5.1); Sodium 139 mmol/L (135-145)
[2024-12-06] MEDS: Fluticasone/Umeclidinium/Vilanterol 200/62.5/25 BLST.W.DEV 1 PUFF INHALE (07:31)
[2024-12-06] MEDS: Albuterol/Iprat 2.5/0.5MG 3 ML AMPUL.NEB INHALE ×4 (07:32→18:37)
[2024-12-06] MEDS: 0.9 % Sodium Chloride Flush 3 ML SYRINGE IVFLUSH ×3 (07:49→20:08)
[2024-12-06] MEDS: Buprenorphine/Naloxone 12/3 mg FILM 1 FILM SUBLINGUAL (07:50)
[2024-12-06] MEDS: Clopidogrel Bisulfate 75 MG TABLET PO (07:50)
[2024-12-06] MEDS: Metoprolol Tartrate 25 MG TABLET PO ×2 (07:50→19:50)
[2024-12-06] MEDS: Sertraline HCL 100 MG TABLET PO (07:51)
[2024-12-06] MEDS: clonazePAM 0.5 MG TABLET PO ×3 (07:51→19:49)
[2024-12-06] MEDS: lisinopriL 10 MG TABLET PO (07:51)
[2024-12-06] MEDS: Roflumilast 500 MCG TABLET PO (07:51)
--- NOTE | 2024-12-06 08:20 | HO.PM.IMPN ---
Subjective Subjective Date of Service: 12/06/24 Interval History: Very anxious at baseline, still withsome cough, O2 stable Review of Systems Review of Systems: Yes all other systems are reviewed and are negative Physical Exam Vital Signs: Vital Signs: Last Vital Signs Temp 98.2 F 12/06/24 07:52 Pulse 78 12/06/24 07:52 Resp 18 12/06/24 07:52 BP 153/68 H 12/06/24 07:52 Pulse Ox 93 12/06/24 03:11 O2 Del Method Nasal Cannula 12/06/24 07:52 O2 Flow Rate 2.0 12/06/24 07:52 Oxygen Flow Rate 2 12/02/24 16:09 BMI result Body Mass Index 20.9 Const: Other: General: AO X 3, no acute distress, frail looking Resp: CTA left sided wheezing, on O2 supplement CVS: S1,S2,RRR GI: +BS, NT, no distention Skin: No rash Neuro: motor grossly intact Psych: appropriate affect Objective Data Active Medications Acetaminophen (Acetaminophen 325 Mg Tablet) 650 mg PO Q6H PRN PRN Reason: Pain, Mild 1-3,fever,headache Last Admin: 12/06/24 03:08 Dose: 650 mg Documented By: DEYSI Albuterol/Ipratropium (Albuterol/Iprat 2.5/0.5mg 3 Ml Ampul.Neb) 3 ml INHALE Q4H PRN PRN Reason: Shortness of Breath/Wheezing Last Admin: 12/05/24 21:20 Dose: 3 ml Documented By: STONE Albuterol/Ipratropium (Albuterol/Iprat 2.5/0.5mg 3 Ml Ampul.Neb) 3 ml INHALE RQ4H WHILE AWAKE [facility] Last Admin: 12/06/24 07:32 Dose: 3 ml Documented By: PENG Azithromycin (Azithromycin 500 Mg Tablet) 500 mg PO Q24H [facility] Last Admin: 12/05/24 20:16 Dose: 500 mg Documented By: DEYSI Benzonatate (Benzonatate 100 Mg Capsule) 100 mg PO TID PRN PRN Reason: Cough Buprenorphine/Naloxone (Buprenorphine/Naloxone 12/3 Mg Film) 1 film SUBLINGUAL DAILY [facility] Last Admin: 12/06/24 07:50 Dose: 1 film Documented By: RADHA Calcium Carbonate (Calcium Carbonate 750 Mg Tab.Chew) 750 mg PO Q4H PRN PRN Reason: Heartburn Clonazepam (Clonazepam 0.5 Mg Tablet) 0.5 mg PO Q6H PRN PRN Reason: Anxiety Last Admin: 12/06/24 07:51 Dose: 0.5 mg Documented By: RADHA Clopidogrel Bisulfate (Clopidogrel Bisulfate 75 Mg Tablet) 75 mg PO DAILY [facility] Last Admin: 12/06/24 07:50 Dose: 75 mg Documented By: RADHA Enoxaparin Sodium (Enoxaparin Sodium 40 Mg/0.4 Ml Syringe) 40 mg SUBCUT Q24H [facility] Last Admin: 12/05/24 20:17 Dose: 40 mg Documented By: DEYSI Fluticasone/Umeclidinium/Vilanterol (Fluticasone/Umeclidinium/Vilanterol 200/62.5/ Blst.W.Dev) 1 puff INHALE RDAILY [facility] Last Admin: 12/06/24 07:31 Dose: 1 puff Documented By: PENG Guaifenesin (Guaifenesin La 600 Mg Tab.Er.12h) 600 mg PO BID PRN PRN Reason: Cough Levothyroxine Sodium (Levothyroxine Sodium 125 Mcg Tablet) 125 mcg PO DAILY@0600 [facility] Last Admin: 12/06/24 05:40 Dose: 125 mcg Documented By: DEYSI Lisinopril (Lisinopril 10 Mg Tablet) 10 mg PO DAILY [facility]; Protocol Last Admin: 12/06/24 07:51 Dose: 10 mg Documented By: RADHA Magnesium Hydroxide (Milk Of Magnesia 30 Ml Oral.Susp) 30 ml PO DAILY PRN PRN Reason: Constipation Meclizine HCl (Meclizine Hcl 25 Mg Tablet) 25 mg PO Q8H PRN PRN Reason: Vertigo Melatonin (Melatonin 3 Mg Tablet) 6 mg PO BEDTIME PRN PRN Reason: Insomnia Last Admin: 12/04/24 20:57 Dose: 6 mg Documented By: MELODY Methylprednisolone Sodium Succinate (Methylprednisolone Sod Succ 40 Mg/Ml Vial) 40 mg IVPUSH Q12H [facility] Last Admin: 12/06/24 05:40 Dose: 40 mg Documented By: HO.LYSZ Metoprolol Tartrate (Metoprolol Tartrate 5 Mg/5 Ml Vial) 5 mg IVPUSH Q6H PRN; Protocol PRN Reason: Heart Rate >100 Metoprolol Tartrate (Metoprolol Tartrate 25 Mg Tablet) 25 mg PO BID [facility]; Protocol Last Admin: 12/06/24 07:50 Dose: 25 mg Documented By: RADHA Mirtazapine (Mirtazapine 15 Mg Tablet) 15 mg PO BEDTIME [facility] Last Admin: 12/05/24 20:16 Dose: 15 mg Documented By: DEYSI Olanzapine (Olanzapine 7.5 Mg Tablet) 7.5 mg PO BEDTIME [facility] Last Admin: 12/05/24 20:16 Dose: 7.5 mg Documented By: DEYSI Roflumilast (Roflumilast 500 Mcg Tablet) 500 mcg PO DAILY [facility] Last Admin: 12/06/24 07:51 Dose: 500 mcg Documented By: RADHA Sertraline HCl (Sertraline Hcl 100 Mg Tablet) 100 mg PO DAILY [facility] Last Admin: 12/06/24 07:51 Dose: 100 mg Documented By: RADHA Sodium Chloride (0.9 % Sodium Chloride Flush 3 Ml Syringe) 3 ml IVFLUSH QSHIFT [facility] Last Admin: 12/06/24 07:49 Dose: 3 ml Documented By: RADHA Labs 12/06/24 05:58 12/06/24 05:58 Labs: Laboratory Results - last 24 hr 12/06/24 05:58 MCV 96.8 MCH 31.7 MCHC 32.7 RDW 14.6 Plt Count 111 L MPV 10.2 Immature Gran % (Auto) 0.4 Neut % (Auto) 76.3 H Lymph % (Auto) 14.7 L [place] % (Auto) 8.6 Eos % (Auto) 0.0 Baso % (Auto) 0.0 Lymph # (Auto) 0.7 L [place] # (Auto) 0.4 Eos # (Auto) 0.0 Baso # (Auto) 0.0 Abs Immat Gran (auto) 0.02 Absolute Neuts (auto) 3.8 Absolute Nucleated RBC 0.000 Nucleated RBC % (auto) 0.0 Anion Gap 12 Estim Creat Clear Calc 46.3 Estimated GFR > 60 Random Glucose 92 Calcium 8.7 Microbiology Microbiology Results: Microbiology 12/03/24 Unknown Urine Culture - Final Urine clean catch - Clean Catch Midstream Assessment and Plan (1) Tachycardia: Status: Acute (2) COPD (chronic obstructive pulmonary disease): Status: Acute (3) Acute exacerbation of chronic obstructive pulmonary disease: Status: Acute (4) Acute and chronic respiratory failure with hypercapnia: Status: Acute (5) Frailty: Status: Acute Plan 69-year-old female with a past medical history of COPD, chronic respiratory failure on 2 L of home oxygen, neuropathy, protein calorie malnutrition, anxiety, depression presented to the hospital with a chief complaint of cough and shortness of breath. Noted to be in acute COPD exacerbation. The patient was admitted for management of an acute COPD exacerbation with acute on chronic respiratory failure. She is a chronic home oxygen user and remains an active tobacco user. Treatment included scheduled and as-needed nebulizer therapy, along with IV steroids, which will be transitioned to oral prednisone upon discharge. The patient is currently feeling improved. Tobacco cessation counseling was provided and strongly reinforced. She is to complete a 5-day course of azithromycin for possible bronchitis. Oxygen saturation goal is 88?92%; currently, she is maintaining an SpO2 of 93%. Frailty PT recommends home with services sinus tachyhcardia with [facility] official cardiology read show no AFIB improved. monitor Opiate dependence Continue Suboxone Mood disorder/anxeity Continue olanzapine, clonazepam - 0.5mg tid prn, change to q6 prn Hypertension continueLisinopril, metoprolol Peripheral vascular disease Continue Plavix DVT prophylaxis: Lovenox Code status: Full code The patient will need overnight stay to continue treatment with IV steroids and nebulziers weaning down O2 as toelrated Quality Stroke Does the patient have a stroke diagnosis?: No VTE Prior VTE?: No VTE Risk Level:: Medical - moderate - high VTE Device Contraindication: Treatment Not Indicated VTE Drug Contraindication: N/A - Med Ordered
--- NOTE | 2024-12-06 08:24 | P.DS_ITS ---
DS: Providers Provider Date of Service: 12/12/24 <Roberto Delcid MD - Last Filed: 12/12/24 13:24> Date of admission: 12/02/24 19:44 <Jethro Rouse MD - Last Filed: 12/10/24 17:07> Date of discharge: 12/12/24 <Roberto Delcid MD - Last Filed: 12/12/24 13:24> Primary care physician: Eddie Watkins MD <Jethro Rouse MD - Last Filed: 12/10/24 17:07> Attending physician on discharge: Roberto Delcid <Roberto Delcid MD - Last Filed: 12/12/24 13:24> Discharging clinician: Roberto Delcid <Roberto Delcid MD - Last Filed: 12/12/24 13:24> DS: Diagnosis Discharge Diagnosis (1) Tachycardia: Status: Acute <Jethro Rouse MD - Last Filed: 12/10/24 17:07> (2) COPD (chronic obstructive pulmonary disease): Status: Acute <Jethro Rouse MD - Last Filed: 12/10/24 17:07> (3) Acute exacerbation of chronic obstructive pulmonary disease: Status: Acute <Jethro Rouse MD - Last Filed: 12/10/24 17:07> (4) Acute and chronic respiratory failure with hypercapnia: Status: Acute <Jethro Rouse MD - Last Filed: 12/10/24 17:07> (5) Frailty: Status: Acute <Jethro Rouse MD - Last Filed: 12/10/24 17:07> DS: Summary Hospital Course Hospital Course: Admission HPI Chief Complaint: sob 69-year-old female with a past medical history of COPD, chronic respiratory failure on 2 L of home oxygen, neuropathy, protein calorie malnutrition, anxiety, depression presented to the hospital with a chief complaint of cough and shortness of breath. Patient reports that over the past couple days she has been having shortness of breath. Which has been gradually worsening. Reports having cough without any sputum production. Denies any chest pain or palpitations. Denies any lightheadedness or dizziness. Denies any nausea or vomiting. Review of all other systems is negative except mentioned above ER course: Per ER team, patient on presentation noted to be short of breath, has bilateral wheezing concerning for acute COPD exacerbation. Patient not in respiratory distress. Continued her home supplemental oxygen. Given nebulizations and steroids. Chest x-ray showed no acute findings. While in the ER patient noted to have new onset AFib with RVR. Hospital course The patient was admitted for management of an acute COPD exacerbation with acute on chronic respiratory failure. She is a chronic home oxygen user and remains an active tobacco user. Treatment included scheduled and as-needed nebulizer therapy, along with IV steroids, azthromycin( intail cxr-no acute finding ,repeat cxr 12/09/24 : possible pneumonitis ): added ceftriaxone. With the above supportive care patient seems to be improved significantly, now at her baseline respiratory status alas. No shortness of breath even with walking. Patient will be going to the rehab with p.o. Ceftin/last prednisone. Tobacco cessation counseling was provided and strongly reinforced. . Oxygen saturation goal is 88?92%; currently, she is maintaining an SpO? of 93%. sinus tachyhcardia with [facility] official cardiology read show no AFIB improved. monitor Opiate dependence Continue Suboxone Mood disorder/anxeity Continue olanzapine, clonazepam - 0.5mg tid prn, change to q6 prn Hypertension: bp flactuating metoprolol,stopped lisinopril. Hyperkalemia:hyperkalemia-likely multifactorial -RD use and diet, still related to respiratory acidosis . Advised for low-potassium diet, lisinopril stopped, monitor BMP in 1 week, also added p.r.n. Lokelma as per nephro. Generalized weak/frailty: Patient will be going to rehab, patient will benefit from less than 1 month stay. Plan: Continue prednisone as prescribed,Completed azithromycin,complete ceftin 500 mg po bid x7 days,Use home oxygen to maintain Oxygen saturation between 88?92%. Repeat chest imaging in 3-4 weeks to see resolution of pneumonitis. hyperkalemia: Improved with discontinuing RD, also thought to be related to respiratory acisosis (which seems improving).. P.r.n. Lokelma was added blood Nephro. Monitor BMP closely. Follow up with pulmonology and primary care within a week, call for appointment,Tobacco cessation t strongly recommended. Above management discussed with the patient detail length, staff present during conversation. Patient understand above management and agreement with the above plan. Time spent 40 minute. <Jethro Rouse MD - Last Filed: 12/10/24 17:07> Time Attestation Total time managing care of this patient today: 40 mintues. <Roberto Delcid MD - Last Filed: 12/12/24 13:24> Discharge Coordination Time (in mins): 40 <Jethro Rouse MD - Last Filed: 12/10/24 17:07> Quality: Safe Use of Opioids Does Pt have an Active Cancer Diagnosis on the Problem List?: No <Jethro Rouse MD - Last Filed: 12/10/24 17:07> Quality: Stroke Does the patient have a stroke diagnosis?: No <Jethro Rouse MD - Last Filed: 12/10/24 17:07> Physical Exam Vital Signs: Vital Signs: Last Vital Signs Temp 98.2 F 12/06/24 07:52 Pulse 78 12/06/24 07:52 Resp 18 12/06/24 07:52 BP 153/68 H 12/06/24 07:52 Pulse Ox 93 12/06/24 03:11 O2 Del Method Nasal Cannula 12/06/24 07:52 O2 Flow Rate 2.0 12/06/24 07:52 Oxygen Flow Rate 2 12/02/24 16:09 BMI result Body Mass Index 20.9 <Jethro Rouse MD - Last Filed: 12/10/24 17:07> General: AO X 3, no acute distress cvs: rrr,s1s2 heard. pulm: air entry fair , no rales or wheezing GI: +BS, NT, no distention Skin: No rash Neuro: motor grossly intact Psych: appropriate affect <Roberto Delcid MD - Last Filed: 12/12/24 13:24> DS: Data Data Completed and Pending Completed studies during hospitalization [Text1]: Procedures Assistance with Respiratory Ventilation, Less than 24 Consecutive Hours, Continuous Positive Airway Pressure (07/25/24) <Jethro Rouse MD - Last Filed: 12/10/24 17:07> Labs on day of discharge: Laboratory Results - last 24 hr 12/06/24 05:58 WBC 4.9 RBC 3.47 L Hgb 11.0 L Hct 33.6 L MCV 96.8 MCH 31.7 MCHC 32.7 RDW 14.6 Plt Count 111 L MPV 10.2 Immature Gran % (Auto) 0.4 Neut % (Auto) 76.3 H Lymph % (Auto) 14.7 L [place] % (Auto) 8.6 Eos % (Auto) 0.0 Baso % (Auto) 0.0 Lymph # (Auto) 0.7 L [place] # (Auto) 0.4 Eos # (Auto) 0.0 Baso # (Auto) 0.0 Abs Immat Gran (auto) 0.02 Absolute Neuts (auto) 3.8 Absolute Nucleated RBC 0.000 Nucleated RBC % (auto) 0.0 Sodium 139 Potassium 4.5 Chloride 104 Carbon Dioxide 28 Anion Gap 12 BUN 46 H Creatinine 0.92 Estim Creat Clear Calc 46.3 Estimated GFR > 60 Random Glucose 92 Calcium 8.7 <Jethro Rouse MD - Last Filed: 12/10/24 17:07> Imaging Chest x-ray: My impression: cxr: IMPRESSION: Mild pulmonary opacities concerning for pneumonitis. Recommend attention on follow-up to ensure resolution. <Roberto Delcid MD - Last Filed: 12/12/24 13:24> Discharge Plan Discharge Anticipated Discharge Date/Time: 12/12/24 12:34 <Jethro Rouse MD - Last Filed: 12/10/24 17:07> Patient Disposition: [facility] <Jethro Rouse MD - Last Filed: 12/10/24 17:07> Discharge Diagnosis: Acute and chronic respiratory failure due to copd exacerbation, hyperkalemia <Jethro Rouse MD - Last Filed: 12/10/24 17:07> Acute and chronic respiratory failure due to copd exacerbation, hyperkalemia <Roberto Delcid MD - Last Filed: 12/12/24 13:24> Referrals: [facility] [Outside] - 1 Week (TRANSFER FOR SHORT TERM REHAB) Eddie Watkins MD [Primary Care Provider] - 1 Week <Jethro Rouse MD - Last Filed: 12/10/24 17:07> Discharge Medications: New cefuroxime axetil 500 mg Tablet 500 mg PO Q12H Qty: 14 0RF prednisone 20 mg Tablet 20 mg PO DAILY Qty: 3 0RF Lokelma 10 gram powder in packet 10 g PO DAILY PRN (Reason: hyperkalemia) Qty: 11 0RF Continued (DME) Walker with wheels and baske, seat, and break See Rx Instructions .Route .MEDSUPPLY Qty: 1 0RF Rx Instructions: Walker with wheels, break, seat and basket sertraline 100 mg tablet 100 mg PO DAILY 90 Days Qty: 90 0RF (DME) Pant Liners, Large Pad See Rx Instructions .Route Qty: 96 5RF Rx Instructions: Change as needed, up to 3 per day clopidogrel [Plavix] 75 mg tablet 75 mg PO DAILY 90 Days Qty: 90 1RF levothyroxine 125 mcg tablet 125 mcg PO DAILY@0600 Qty: 90 0RF mirtazapine 15 mg tablet 15 mg PO BEDTIME albuterol sulfate [Ventolin HFA] 90 mcg/actuation HFA aerosol inhaler 2 puff INHALATION Q6H PRN (Reason: Shortness Of Breath Or Wheezing) roflumilast 500 mcg tablet 500 mcg PO DAILY clonazepam 0.5 mg tablet 0.5 mg PO TID PRN (Reason: Anxiety) olanzapine 7.5 mg Tablet 7.5 mg PO BEDTIME Qty: 30 0RF buprenorphine-naloxone 12-3 mg film 1 film sublingual DAILY Qty: 7 0RF sertraline 25 mg tablet 25 mg PO DAILY guaifenesin [Mucinex] 600 mg tablet extended release 12hr 600 mg PO BID PRN (Reason: Cough) Trelegy Ellipta 200-62.5-25 mcg blister with device 1 ea inhalation DAILY Discontinued lisinopril 10 mg tablet 10 mg PO DAILY 90 Days Qty: 90 0RF <Jethro Rouse MD - Last Filed: 12/10/24 17:07> Discharge Orders: Discharge Order (Routine); Ordered 12/12/24 Ordered By: Roberto Delcid <Jethro Rouse MD - Last Filed: 12/10/24 17:07> Diet: Advance to usual diet <Jethro Rouse MD - Last Filed: 12/10/24 17:07> Advance to usual diet <Roberto Delcid MD - Last Filed: 12/12/24 13:24> Activity on Discharge: As tolerated <Jethro Rouse MD - Last Filed: 12/10/24 17:07> As tolerated <Roberto Delcid MD - Last Filed: 12/12/24 13:24> Stand Alone Forms: Patient Portal Discharge page <Jethro Rouse MD - Last Filed: 12/10/24 17:07> Print Language: Tamazight <Jethro Rouse MD - Last Filed: 12/10/24 17:07> Care Plan Goals: Improve respiratory function and prevent further exacerbations; maintain adequate oxygen saturation; support smoking cessation efforts. <Jethro Rouse MD - Last Filed: 12/10/24 17:07> Health Concerns: Chronic tobacc use , copd exacerbation with acute respiatory failure, bronchitis and pneumonitis <Jethro Rouse MD - Last Filed: 12/10/24 17:07> Plan of Treatment: * Continue prednisone as prescribed. * Completed azithromycin. * complete ceftin 500 mg po bid x7 days * Use home oxygen to maintain Oxygen saturation between 88?92%. * Continue breathing treatment * hyperkalemia: Improved with discontinuing RD, also thought to be related to respiratory alkalosis. P.r.n. Jodyma was added blood Nephro. Monitor BMP closely. * Follow up with pulmonology and primary care within a week, call for appointment * Tobacco cessation t strongly recommended <Jethro Rouse MD - Last Filed: 12/10/24 17:07> Assessment: See above <Jethro Rouse MD - Last Filed: 12/10/24 17:07> Patient Instructions: Pneumonia (DC) <Jethro Rouse MD - Last Filed: 12/10/24 17:07>
--- NOTE | 2024-12-06 08:32 | P.F2F_ITS ---
Service Date Service Date: 12/06/24 Reasons for Services Signs and symptoms assessed: shortness of breath due to copd exacerbation, and frailty Reason for care home: medication management, medication treatment and teach disease management Reason for physical therapy: therapeutic exercises, assess need for DME and energy conservation Homebound: Leaving the home is medically contraindicated at this time without the asist of a device and/or another person due th the listed conditions above and below. Reason homebound: fall risk related to blood pressure changes and weakness related to hospital stay Homebound supporting statement: The patient is considered homebound due to chronic respiratory failure and recent COPD exacerbation requiring supplemental oxygen and frailty. She experiences increased shortness of breath with minimal exertion, making it medically contraindicated and unsafe to leave the home without assistance. Leaving the home requires a considerable and taxing effort and therefore needs the assistance of another person Certification: Based on the above findings, I certify that this patient is confined to the home and needs intermittent care home care, physical therapy and/or speech therapy, or continues to need occupational therapy. The patient is under my care, and I have initiated the establishment of the plan of care. The patient will be followed by a physician who will periodically review the plan of care. Time Spent With Patient Time: Total time managing care of this patient today ____ minutes.
--- NOTE | 2024-12-06 13:36 | MHC.CM.PN ---
REFERRAL TO [facility], [facility] IS NOT CONTRACTED WITH PATIENT INSURANCE. PATIENT IS DC HOME TODAY.
--- NOTE | 2024-12-06 14:46 | MHC.CM.PN ---
PATIENT ACCEPTED BY [facility] PATIENT AWARE AND DENIES NEED FOR SERVICES DESPITE P.T. RECOMMENDATIONS. [facility]WARE.
[2024-12-06] MEDS: Mirtazapine 15 MG TABLET PO (19:48)
[2024-12-06] MEDS: OLANZapine 7.5 MG TABLET PO (19:48)
[2024-12-06] MEDS: Benzonatate 100 MG CAPSULE PO (19:48)
[2024-12-06] MEDS: Azithromycin 500 MG TABLET PO (19:48)
[2024-12-06] MEDS: guaiFENesin LA 600 MG TAB.ER.12H PO (19:53)
[2024-12-06] MEDS: Enoxaparin Sodium 40 MG/0.4 ML SYRINGE SUBCUT (22:10)
[2024-12-07] VITALS (7 sets, daily range): BP systolic 98–149; BP diastolic 56–67; PULSE 59–79; RESP 16–18; TEMP 36.1–37.2; O2SAT 92–98
[2024-12-07] MEDS: methylPREDNISolone Sod Succ 40 MG/ML VIAL IVPUSH ×2 (05:37→17:22)
[2024-12-07] MEDS: Levothyroxine Sodium 125 MCG TABLET PO (05:37)
[2024-12-07] MEDS: Fluticasone/Umeclidinium/Vilanterol 200/62.5/25 BLST.W.DEV 1 PUFF INHALE (07:39)
[2024-12-07] MEDS: Albuterol/Iprat 2.5/0.5MG 3 ML AMPUL.NEB INHALE ×3 (07:39→18:29)
[2024-12-07] MEDS: Buprenorphine/Naloxone 12/3 mg FILM 1 FILM SUBLINGUAL (08:01)
[2024-12-07] MEDS: Sertraline HCL 100 MG TABLET PO (08:01)
[2024-12-07] MEDS: Roflumilast 500 MCG TABLET PO (08:01)
[2024-12-07] MEDS: guaiFENesin LA 600 MG TAB.ER.12H PO ×2 (08:01→20:08)
[2024-12-07] MEDS: Benzonatate 100 MG CAPSULE PO ×2 (08:01→15:05)
[2024-12-07] MEDS: Metoprolol Tartrate 25 MG TABLET PO (08:01)
[2024-12-07] MEDS: lisinopriL 10 MG TABLET PO (08:01)
[2024-12-07] MEDS: Clopidogrel Bisulfate 75 MG TABLET PO (08:01)
[2024-12-07] MEDS: clonazePAM 0.5 MG TABLET PO ×3 (08:01→21:05)
[2024-12-07] MEDS: 0.9 % Sodium Chloride Flush 3 ML SYRINGE IVFLUSH ×3 (08:05→20:08)
--- NOTE | 2024-12-07 08:23 | HO.PM.IMPN ---
Subjective Subjective Date of Service: 12/07/24 Interval History: reporting not feeling good, coughing Review of Systems Review of Systems: Yes all other systems are reviewed and are negative Physical Exam Vital Signs: Vital Signs: Last Vital Signs Temp 98.9 F 12/07/24 07:23 Pulse 66 12/07/24 07:42 Resp 16 12/07/24 07:42 BP 149/67 H 12/07/24 07:23 Pulse Ox 96 12/07/24 07:23 O2 Del Method Nasal Cannula 12/07/24 07:23 O2 Flow Rate 2 12/07/24 07:23 Oxygen Flow Rate 2 12/02/24 16:09 BMI result Body Mass Index 20.9 Objective Data Active Medications Acetaminophen (Acetaminophen 325 Mg Tablet) 650 mg PO Q6H PRN PRN Reason: Pain, Mild 1-3,fever,headache Last Admin: 12/06/24 03:08 Dose: 650 mg Documented By: DEYSI Albuterol/Ipratropium (Albuterol/Iprat 2.5/0.5mg 3 Ml Ampul.Neb) 3 ml INHALE Q4H PRN PRN Reason: Shortness of Breath/Wheezing Last Admin: 12/05/24 21:20 Dose: 3 ml Documented By: STONE Albuterol/Ipratropium (Albuterol/Iprat 2.5/0.5mg 3 Ml Ampul.Neb) 3 ml INHALE RQ4H WHILE AWAKE COUNT INCLUDES THE [facility] Last Admin: 12/07/24 07:39 Dose: 3 ml Documented By: YOGESH Azithromycin (Azithromycin 500 Mg Tablet) 500 mg PO Q24H COUNT INCLUDES THE [facility] Last Admin: 12/06/24 19:48 Dose: 500 mg Documented By: OSCAR Benzonatate (Benzonatate 100 Mg Capsule) 100 mg PO TID PRN PRN Reason: Cough Last Admin: 12/07/24 08:01 Dose: 100 mg Documented By: MATTI Buprenorphine/Naloxone (Buprenorphine/Naloxone 12/3 Mg Film) 1 film SUBLINGUAL DAILY COUNT INCLUDES THE [facility] Last Admin: 12/07/24 08:01 Dose: 1 film Documented By: MATTI Calcium Carbonate (Calcium Carbonate 750 Mg Tab.Chew) 750 mg PO Q4H PRN PRN Reason: Heartburn Clonazepam (Clonazepam 0.5 Mg Tablet) 0.5 mg PO Q6H PRN PRN Reason: Anxiety Last Admin: 12/07/24 08:01 Dose: 0.5 mg Documented By: MATTI Clopidogrel Bisulfate (Clopidogrel Bisulfate 75 Mg Tablet) 75 mg PO DAILY COUNT INCLUDES THE [facility] Last Admin: 12/07/24 08:01 Dose: 75 mg Documented By: MATTI Enoxaparin Sodium (Enoxaparin Sodium 40 Mg/0.4 Ml Syringe) 40 mg SUBCUT Q24H COUNT INCLUDES THE [facility] Last Admin: 12/06/24 22:10 Dose: 40 mg Documented By: OSCAR Fluticasone/Umeclidinium/Vilanterol (Fluticasone/Umeclidinium/Vilanterol 200/62.5/ Blst.W.Dev) 1 puff INHALE RDAILY COUNT INCLUDES THE [facility] Last Admin: 12/07/24 07:39 Dose: 1 puff Documented By: YOGESH Guaifenesin (Guaifenesin La 600 Mg Tab.Er.12h) 600 mg PO BID PRN PRN Reason: Cough Last Admin: 12/07/24 08:01 Dose: 600 mg Documented By: MATTI Levothyroxine Sodium (Levothyroxine Sodium 125 Mcg Tablet) 125 mcg PO DAILY@0600 COUNT INCLUDES THE [facility] Last Admin: 12/07/24 05:37 Dose: 125 mcg Documented By: OSCAR Lisinopril (Lisinopril 10 Mg Tablet) 10 mg PO DAILY COUNT INCLUDES THE [facility]; Protocol Last Admin: 12/07/24 08:01 Dose: 10 mg Documented By: MATTI Magnesium Hydroxide (Milk Of Magnesia 30 Ml Oral.Susp) 30 ml PO DAILY PRN PRN Reason: Constipation Meclizine HCl (Meclizine Hcl 25 Mg Tablet) 25 mg PO Q8H PRN PRN Reason: Vertigo Melatonin (Melatonin 3 Mg Tablet) 6 mg PO BEDTIME PRN PRN Reason: Insomnia Last Admin: 12/04/24 20:57 Dose: 6 mg Documented By: MELODY Methylprednisolone Sodium Succinate (Methylprednisolone Sod Succ 40 Mg/Ml Vial) 40 mg IVPUSH Q12H COUNT INCLUDES THE [facility] Last Admin: 12/07/24 05:37 Dose: 40 mg Documented By: OSCAR Metoprolol Tartrate (Metoprolol Tartrate 5 Mg/5 Ml Vial) 5 mg IVPUSH Q6H PRN; Protocol PRN Reason: Heart Rate >100 Metoprolol Tartrate (Metoprolol Tartrate 25 Mg Tablet) 25 mg PO BID COUNT INCLUDES THE [facility]; Protocol Last Admin: 12/07/24 08:01 Dose: 25 mg Documented By: MATTI Mirtazapine (Mirtazapine 15 Mg Tablet) 15 mg PO BEDTIME COUNT INCLUDES THE [facility] Last Admin: 12/06/24 19:48 Dose: 15 mg Documented By: OSCAR Olanzapine (Olanzapine 7.5 Mg Tablet) 7.5 mg PO BEDTIME COUNT INCLUDES THE [facility] Last Admin: 12/06/24 19:48 Dose: 7.5 mg Documented By: OSCAR Roflumilast (Roflumilast 500 Mcg Tablet) 500 mcg PO DAILY COUNT INCLUDES THE [facility] Last Admin: 12/07/24 08:01 Dose: 500 mcg Documented By: MATTI Sertraline HCl (Sertraline Hcl 100 Mg Tablet) 100 mg PO DAILY COUNT INCLUDES THE [facility] Last Admin: 12/07/24 08:01 Dose: 100 mg Documented By: MATTI Sodium Chloride (0.9 % Sodium Chloride Flush 3 Ml Syringe) 3 ml IVFLUSH QSHIFT COUNT INCLUDES THE [facility] Last Admin: 12/07/24 08:05 Dose: 3 ml Documented By: MATTI Labs 12/06/24 05:58 12/06/24 05:58 Assessment and Plan (1) Tachycardia: Status: Acute (2) COPD (chronic obstructive pulmonary disease): Status: Acute (3) Acute exacerbation of chronic obstructive pulmonary disease: Status: Acute (4) Acute and chronic respiratory failure with hypercapnia: Status: Acute (5) Frailty: Status: Acute Plan 69-year-old female with a past medical history of COPD, chronic respiratory failure on 2 L of home oxygen, neuropathy, protein calorie malnutrition, anxiety, depression presented to the hospital with a chief complaint of cough and shortness of breath. Noted to be in acute COPD exacerbation. The patient was admitted for management of an acute COPD exacerbation with acute on chronic respiratory failure. She is a chronic home oxygen user and remains an active tobacco user. Treatment included scheduled and as-needed nebulizer therapy, along with IV steroids, which will be transitioned to oral prednisone upon discharge. The patient is currently feeling improved. Tobacco cessation counseling was provided and strongly reinforced. She is to complete a 5-day course of azithromycin for possible bronchitis. Oxygen saturation goal is 88?92%; currently, she is maintaining an SpO2 of 93%. Frailty PT recommends home with services sinus tachyhcardia with [facility] official cardiology read show no AFIB improved. monitor Opiate dependence Continue Suboxone Mood disorder/anxeity Continue olanzapine, clonazepam - 0.5mg tid prn, change to q6 prn Hypertension continueLisinopril, metoprolol Peripheral vascular disease Continue Plavix DVT prophylaxis: Lovenox Code status: Full code The patient will need overnight stay to continue treatment with IV steroids and nebulziers weaning down O2 as toelrated Quality Stroke Does the patient have a stroke diagnosis?: No VTE Prior VTE?: No VTE Risk Level:: Medical - moderate - high VTE Device Contraindication: Treatment Not Indicated VTE Drug Contraindication: N/A - Med Ordered
[2024-12-07] MEDS: Azithromycin 500 MG TABLET PO (20:08)
[2024-12-07] MEDS: OLANZapine 7.5 MG TABLET PO (20:08)
[2024-12-07] MEDS: Mirtazapine 15 MG TABLET PO (20:08)
[2024-12-07] MEDS: Enoxaparin Sodium 40 MG/0.4 ML SYRINGE SUBCUT (21:06)
[2024-12-08] VITALS (9 sets, daily range): BP systolic 92–132; BP diastolic 51–75; PULSE 61–71; RESP 16–20; TEMP 36–36.4; O2SAT 92–98
[2024-12-08] MEDS: Levothyroxine Sodium 125 MCG TABLET PO (05:39)
[2024-12-08] MEDS: methylPREDNISolone Sod Succ 40 MG/ML VIAL IVPUSH ×2 (05:39→17:24)
[2024-12-08] MEDS: clonazePAM 0.5 MG TABLET PO ×3 (05:42→22:28)
[2024-12-08] MEDS: Albuterol/Iprat 2.5/0.5MG 3 ML AMPUL.NEB INHALE ×5 (06:01→19:40)
[2024-12-08] MEDS: Fluticasone/Umeclidinium/Vilanterol 200/62.5/25 BLST.W.DEV 1 PUFF INHALE (07:56)
[2024-12-08] MEDS: Roflumilast 500 MCG TABLET PO (08:32)
[2024-12-08] MEDS: lisinopriL 10 MG TABLET PO (08:32)
[2024-12-08] MEDS: Sertraline HCL 100 MG TABLET PO (08:32)
[2024-12-08] MEDS: Clopidogrel Bisulfate 75 MG TABLET PO (08:33)
[2024-12-08] MEDS: Metoprolol Tartrate 25 MG TABLET PO (08:33)
[2024-12-08] MEDS: 0.9 % Sodium Chloride Flush 3 ML SYRINGE IVFLUSH ×3 (08:33→20:04)
[2024-12-08] MEDS: Buprenorphine/Naloxone 12/3 mg FILM 1 FILM SUBLINGUAL (08:33)
--- NOTE | 2024-12-08 09:20 | P.PNIM_ITS ---
Subjective Subjective Date of Service: 12/08/24 Interval History: reporting not feeling good, coughing and feeling dizzy Review of Systems Review of Systems: Yes all other systems are reviewed and are negative Physical Exam 2 Vital Signs: Vital Signs: Last Vital Signs Temp 97.0 F 12/08/24 07:22 Pulse 71 12/08/24 07:57 Resp 16 12/08/24 07:57 BP 128/58 L 12/08/24 07:22 Pulse Ox 96 12/08/24 07:22 O2 Del Method Nasal Cannula 12/08/24 07:22 O2 Flow Rate 2 12/08/24 07:22 Oxygen Flow Rate 2 12/02/24 16:09 BMI result Body Mass Index 20.9 General: AO X 3, no acute distress Resp: wheezing, rhonchi anthony. normal effort CVS: S1,S2,RRR GI: +BS, NT, no distention Skin: No rash Neuro: motor grossly intact Psych: appropriate affect Objective Data Active Medications Acetaminophen (Acetaminophen 325 Mg Tablet) 650 mg PO Q6H PRN PRN Reason: Pain, Mild 1-3,fever,headache Last Admin: 12/06/24 03:08 Dose: 650 mg Documented By: DEYSI Albuterol/Ipratropium (Albuterol/Iprat 2.5/0.5mg 3 Ml Ampul.Neb) 3 ml INHALE Q4H PRN PRN Reason: Shortness of Breath/Wheezing Last Admin: 12/08/24 06:01 Dose: 3 ml Documented By: NAYELY Albuterol/Ipratropium (Albuterol/Iprat 2.5/0.5mg 3 Ml Ampul.Neb) 3 ml INHALE RQ4H WHILE AWAKE [facility] Last Admin: 12/08/24 07:56 Dose: 3 ml Documented By: YOGESH Azithromycin (Azithromycin 500 Mg Tablet) 500 mg PO Q24H [facility] Last Admin: 12/07/24 20:08 Dose: 500 mg Documented By: ODRISM Benzonatate (Benzonatate 100 Mg Capsule) 100 mg PO TID PRN PRN Reason: Cough Last Admin: 12/07/24 15:05 Dose: 100 mg Documented By: MATTI Buprenorphine/Naloxone (Buprenorphine/Naloxone 12/3 Mg Film) 1 film SUBLINGUAL DAILY [facility] Last Admin: 12/08/24 08:33 Dose: 1 film Documented By: BIANCA Calcium Carbonate (Calcium Carbonate 750 Mg Tab.Chew) 750 mg PO Q4H PRN PRN Reason: Heartburn Clonazepam (Clonazepam 0.5 Mg Tablet) 0.5 mg PO Q6H PRN PRN Reason: Anxiety Last Admin: 12/08/24 05:42 Dose: 0.5 mg Documented By: OMER Clopidogrel Bisulfate (Clopidogrel Bisulfate 75 Mg Tablet) 75 mg PO DAILY [facility] Last Admin: 12/08/24 08:33 Dose: 75 mg Documented By: BIANCA Enoxaparin Sodium (Enoxaparin Sodium 40 Mg/0.4 Ml Syringe) 40 mg SUBCUT Q24H [facility] Last Admin: 12/07/24 21:06 Dose: 40 mg Documented By: OMER Fluticasone/Umeclidinium/Vilanterol (Fluticasone/Umeclidinium/Vilanterol 200/62.5/25 Blst.W.Dev) 1 puff INHALE RDAILY [facility] Last Admin: 12/08/24 07:56 Dose: 1 puff Documented By: YOGESH Guaifenesin (Guaifenesin La 600 Mg Tab.Er.12h) 600 mg PO BID PRN PRN Reason: Cough Last Admin: 12/07/24 20:08 Dose: 600 mg Documented By: OMER Levothyroxine Sodium (Levothyroxine Sodium 125 Mcg Tablet) 125 mcg PO DAILY@0600 [facility] Last Admin: 12/08/24 05:39 Dose: 125 mcg Documented By: OMER Lisinopril (Lisinopril 10 Mg Tablet) 10 mg PO DAILY [facility]; Protocol Last Admin: 12/08/24 08:32 Dose: 10 mg Documented By: BIANCA Magnesium Hydroxide (Milk Of Magnesia 30 Ml Oral.Susp) 30 ml PO DAILY PRN PRN Reason: Constipation Meclizine HCl (Meclizine Hcl 25 Mg Tablet) 25 mg PO Q8H PRN PRN Reason: Vertigo Melatonin (Melatonin 3 Mg Tablet) 6 mg PO BEDTIME PRN PRN Reason: Insomnia Last Admin: 12/04/24 20:57 Dose: 6 mg Documented By: MELODY Methylprednisolone Sodium Succinate (Methylprednisolone Sod Succ 40 Mg/Ml Vial) 40 mg IVPUSH Q12H [facility] Last Admin: 12/08/24 05:39 Dose: 40 mg Documented By: OMER Metoprolol Tartrate (Metoprolol Tartrate 5 Mg/5 Ml Vial) 5 mg IVPUSH Q6H PRN; Protocol PRN Reason: Heart Rate >100 Metoprolol Tartrate (Metoprolol Tartrate 25 Mg Tablet) 25 mg PO BID [facility]; Protocol Last Admin: 12/08/24 08:33 Dose: 25 mg Documented By: BIANCA Mirtazapine (Mirtazapine 15 Mg Tablet) 15 mg PO BEDTIME [facility] Last Admin: 12/07/24 20:08 Dose: 15 mg Documented By: OMER Olanzapine (Olanzapine 7.5 Mg Tablet) 7.5 mg PO BEDTIME [facility] Last Admin: 12/07/24 20:08 Dose: 7.5 mg Documented By: OMER Roflumilast (Roflumilast 500 Mcg Tablet) 500 mcg PO DAILY [facility] Last Admin: 12/08/24 08:32 Dose: 500 mcg Documented By: BIANCA Sertraline HCl (Sertraline Hcl 100 Mg Tablet) 100 mg PO DAILY [facility] Last Admin: 12/08/24 08:32 Dose: 100 mg Documented By: BIANCA Sodium Chloride (0.9 % Sodium Chloride Flush 3 Ml Syringe) 3 ml IVFLUSH QSHIFT [facility] Last Admin: 12/08/24 08:33 Dose: 3 ml Documented By: BIANCA Labs 12/06/24 05:58 12/06/24 05:58 Assessment and Plan (1) Tachycardia: Status: Acute (2) COPD (chronic obstructive pulmonary disease): Status: Acute (3) Acute exacerbation of chronic obstructive pulmonary disease: Status: Acute (4) Acute and chronic respiratory failure with hypercapnia: Status: Acute (5) Frailty: Status: Acute Plan 69-year-old female with a past medical history of COPD, chronic respiratory failure on 2 L of home oxygen, neuropathy, protein calorie malnutrition, anxiety, depression presented to the hospital with a chief complaint of cough and shortness of breath. Noted to be in acute COPD exacerbation. The patient was admitted for management of an acute COPD exacerbation with acute on chronic respiratory failure. She is a chronic home oxygen user and remains an active tobacco user. Treatment included scheduled and as-needed nebulizer therapy, along with IV steroids, which will be transitioned to oral prednisone upon discharge. The patient is currently feeling improved. Tobacco cessation counseling was provided and strongly reinforced. She is to complete a 5-day course of azithromycin for possible bronchitis. Oxygen saturation goal is 88?92%; currently, she is maintaining an SpO2 of 93%. Frailty PT recommends home with services, to be reassed for possible rehab, given what looks like worsening condition sinus tachyhcardia with [facility] official cardiology read show no AFIB improved. monitor Opiate dependence Continue Suboxone Mood disorder/anxeity Continue olanzapine, clonazepam - 0.5mg tid prn, change to q6 prn Hypertension continueLisinopril, metoprolol Peripheral vascular disease Continue Plavix DVT prophylaxis: Lovenox Code status: Full code The patient will need overnight stay to continue treatment with IV steroids and nebulziers weaning down O2 as toelrated PT to reasess for rehab tomorrow Quality Stroke Does the patient have a stroke diagnosis?: No VTE Prior VTE?: No VTE Risk Level:: Medical - moderate - high VTE Device Contraindication: Treatment Not Indicated VTE Drug Contraindication: N/A - Med Ordered
[2024-12-08] MEDS: Azithromycin 500 MG TABLET PO (20:03)
[2024-12-08] MEDS: Mirtazapine 15 MG TABLET PO (20:03)
[2024-12-08] MEDS: OLANZapine 7.5 MG TABLET PO (20:04)
[2024-12-08] MEDS: Enoxaparin Sodium 40 MG/0.4 ML SYRINGE SUBCUT (21:31)
[2024-12-09] VITALS (14 sets, daily range): BP systolic 78–117; BP diastolic 46–68; PULSE 64–80; RESP 17–20; TEMP 36.1–36.6; O2SAT 93–98
[2024-12-09] MEDS: clonazePAM 0.5 MG TABLET PO ×4 (05:05→23:36)
[2024-12-09] MEDS: methylPREDNISolone Sod Succ 40 MG/ML VIAL IVPUSH ×2 (05:05→18:28)
[2024-12-09] MEDS: Levothyroxine Sodium 125 MCG TABLET PO (05:05)
[2024-12-09] MEDS: Fluticasone/Umeclidinium/Vilanterol 200/62.5/25 BLST.W.DEV 1 PUFF INHALE (07:31)
[2024-12-09] MEDS: Albuterol/Iprat 2.5/0.5MG 3 ML AMPUL.NEB INHALE ×4 (07:32→18:33)
[2024-12-09] MEDS: Clopidogrel Bisulfate 75 MG TABLET PO (07:45)
[2024-12-09] MEDS: Metoprolol Tartrate 25 MG TABLET PO (07:45)
[2024-12-09] MEDS: lisinopriL 10 MG TABLET PO (07:45)
[2024-12-09] MEDS: Roflumilast 500 MCG TABLET PO (07:45)
[2024-12-09] MEDS: Sertraline HCL 100 MG TABLET PO (07:45)
[2024-12-09] MEDS: Buprenorphine/Naloxone 12/3 mg FILM 1 FILM SUBLINGUAL (07:45)
[2024-12-09] MEDS: 0.9 % Sodium Chloride Flush 3 ML SYRINGE IVFLUSH ×3 (07:46→19:49)
[2024-12-09] MEDS: guaiFENesin LA 600 MG TAB.ER.12H PO ×2 (07:50→20:49)
--- NOTE | 2024-12-09 09:12 | HO.PM.IMPN ---
Subjective Subjective Date of Service: 12/09/24 Interval History: reporting not feeling good, coughing and feeling dizzy Physical Exam Vital Signs: Vital Signs: Last Vital Signs Temp 97.1 F 12/09/24 07:03 Pulse 66 12/09/24 07:44 Resp 17 12/09/24 07:44 BP 117/57 L 12/09/24 07:03 Pulse Ox 93 12/09/24 07:44 O2 Del Method Nasal Cannula 12/09/24 07:03 O2 Flow Rate 3 12/09/24 07:03 Oxygen Flow Rate 2 12/02/24 16:09 BMI result Body Mass Index 20.9 General: AO X 3, no acute distress Resp: wheezing, rhonchi anthony. normal effort CVS: S1,S2,RRR GI: +BS, NT, no distention Skin: No rash Neuro: motor grossly intact Psych: appropriate affect Objective Data Active Medications Acetaminophen (Acetaminophen 325 Mg Tablet) 650 mg PO Q6H PRN PRN Reason: Pain, Mild 1-3,fever,headache Last Admin: 12/06/24 03:08 Dose: 650 mg Documented By: DEYSI Albuterol/Ipratropium (Albuterol/Iprat 2.5/0.5mg 3 Ml Ampul.Neb) 3 ml INHALE Q4H PRN PRN Reason: Shortness of Breath/Wheezing Last Admin: 12/08/24 06:01 Dose: 3 ml Documented By: NAYELY Albuterol/Ipratropium (Albuterol/Iprat 2.5/0.5mg 3 Ml Ampul.Neb) 3 ml INHALE RQ4H WHILE AWAKE [facility] Last Admin: 12/09/24 07:32 Dose: 3 ml Documented By: PENG Azithromycin (Azithromycin 500 Mg Tablet) 500 mg PO Q24H [facility] Last Admin: 12/08/24 20:03 Dose: 500 mg Documented By: ODRISM Benzonatate (Benzonatate 100 Mg Capsule) 100 mg PO TID PRN PRN Reason: Cough Last Admin: 12/07/24 15:05 Dose: 100 mg Documented By: MATTI Buprenorphine/Naloxone (Buprenorphine/Naloxone 12/3 Mg Film) 1 film SUBLINGUAL DAILY [facility] Last Admin: 12/09/24 07:45 Dose: 1 film Documented By: LUIS ARMANDO Calcium Carbonate (Calcium Carbonate 750 Mg Tab.Chew) 750 mg PO Q4H PRN PRN Reason: Heartburn Clonazepam (Clonazepam 0.5 Mg Tablet) 0.5 mg PO Q6H PRN PRN Reason: Anxiety Last Admin: 12/09/24 05:05 Dose: 0.5 mg Documented By: OMER Clopidogrel Bisulfate (Clopidogrel Bisulfate 75 Mg Tablet) 75 mg PO DAILY [facility] Last Admin: 12/09/24 07:45 Dose: 75 mg Documented By: LUIS ARMANDO Enoxaparin Sodium (Enoxaparin Sodium 40 Mg/0.4 Ml Syringe) 40 mg SUBCUT Q24H [facility] Last Admin: 12/08/24 21:31 Dose: 40 mg Documented By: OMER Fluticasone/Umeclidinium/Vilanterol (Fluticasone/Umeclidinium/Vilanterol 200/.5 Blst.W.Dev) 1 puff INHALE RDAILY [facility] Last Admin: 12/09/24 07:31 Dose: 1 puff Documented By: PENG Guaifenesin (Guaifenesin La 600 Mg Tab.Er.12h) 600 mg PO BID PRN PRN Reason: Cough Last Admin: 12/09/24 07:50 Dose: 600 mg Documented By: LUIS ARMANDO Levothyroxine Sodium (Levothyroxine Sodium 125 Mcg Tablet) 125 mcg PO DAILY@0600 [facility] Last Admin: 12/09/24 05:05 Dose: 125 mcg Documented By: OMER Lisinopril (Lisinopril 10 Mg Tablet) 10 mg PO DAILY [facility]; Protocol Last Admin: 12/09/24 07:45 Dose: 10 mg Documented By: LUIS ARMANDO Magnesium Hydroxide (Milk Of Magnesia 30 Ml Oral.Susp) 30 ml PO DAILY PRN PRN Reason: Constipation Meclizine HCl (Meclizine Hcl 25 Mg Tablet) 25 mg PO Q8H PRN PRN Reason: Vertigo Melatonin (Melatonin 3 Mg Tablet) 6 mg PO BEDTIME PRN PRN Reason: Insomnia Last Admin: 12/04/24 20:57 Dose: 6 mg Documented By: MELODY Methylprednisolone Sodium Succinate (Methylprednisolone Sod Succ 40 Mg/Ml Vial) 40 mg IVPUSH Q12H [facility] Last Admin: 12/09/24 05:05 Dose: 40 mg Documented By: OMER Metoprolol Tartrate (Metoprolol Tartrate 5 Mg/5 Ml Vial) 5 mg IVPUSH Q6H PRN; Protocol PRN Reason: Heart Rate >100 Metoprolol Tartrate (Metoprolol Tartrate 25 Mg Tablet) 25 mg PO BID [facility]; Protocol Last Admin: 12/09/24 07:45 Dose: 25 mg Documented By: LUIS ARMANDO Mirtazapine (Mirtazapine 15 Mg Tablet) 15 mg PO BEDTIME [facility] Last Admin: 12/08/24 20:03 Dose: 15 mg Documented By: OMER Olanzapine (Olanzapine 7.5 Mg Tablet) 7.5 mg PO BEDTIME [facility] Last Admin: 12/08/24 20:04 Dose: 7.5 mg Documented By: OMER Roflumilast (Roflumilast 500 Mcg Tablet) 500 mcg PO DAILY [facility] Last Admin: 12/09/24 07:45 Dose: 500 mcg Documented By: LUIS ARMANDO Sertraline HCl (Sertraline Hcl 100 Mg Tablet) 100 mg PO DAILY [facility] Last Admin: 12/09/24 07:45 Dose: 100 mg Documented By: LUIS ARMANDO Sodium Chloride (0.9 % Sodium Chloride Flush 3 Ml Syringe) 3 ml IVFLUSH QSHIFT [facility] Last Admin: 12/09/24 07:46 Dose: 3 ml Documented By: LUIS ARMANDO Labs 12/06/24 05:58 12/06/24 05:58 Assessment and Plan (1) Tachycardia: Status: Acute (2) COPD (chronic obstructive pulmonary disease): Status: Acute (3) Acute exacerbation of chronic obstructive pulmonary disease: Status: Acute (4) Acute and chronic respiratory failure with hypercapnia: Status: Acute (5) Frailty: Status: Acute Plan 69-year-old female with a past medical history of COPD, chronic respiratory failure on 2 L of home oxygen, neuropathy, protein calorie malnutrition, anxiety, depression presented to the hospital with a chief complaint of cough and shortness of breath. Noted to be in acute COPD exacerbation. The patient was admitted for management of an acute COPD exacerbation with acute on chronic respiratory failure. She is a chronic home oxygen user and remains an active tobacco user. Treatment included scheduled and as-needed nebulizer therapy, along with IV steroids, which will be transitioned to oral prednisone upon discharge. The patient is currently feeling congested, coughing and not feeling well. Tobacco cessation counseling was provided and strongly reinforced. She is to complete a 5-day course of azithromycin for possible bronchitis. Oxygen saturation goal is 88?92%; currently, she is maintaining an SpO2 of 93%. Frailty PT recommends home with services, to be reassed for possible rehab, given what looks like worsening condition sinus tachyhcardia with [facility] official cardiology read show no AFIB improved. monitor Opiate dependence Continue Suboxone Mood disorder/anxeity Continue olanzapine, clonazepam - 0.5mg tid prn, change to q6 prn Hypertension continueLisinopril, metoprolol Peripheral vascular disease Continue Plavix DVT prophylaxis: Lovenox Code status: Full code The patient will need overnight stay to continue treatment with IV steroids and nebulziers weaning down O2 as toelrated PT to reasess for possible rehab Quality Stroke Does the patient have a stroke diagnosis?: No VTE Prior VTE?: No VTE Risk Level:: Medical - moderate - high VTE Device Contraindication: Treatment Not Indicated VTE Drug Contraindication: N/A - Med Ordered
--- NOTE | 2024-12-09 15:40 | PC.NURSE ---
Pt noted to be vaping on video monitor. pt was cooperative handed over vap. vap was locked up in cabinet on S4.
[2024-12-09] MEDS: Azithromycin 500 MG TABLET PO (19:36)
[2024-12-09] MEDS: Albumin Human 25 % 100 ML 133.33 ML IV ×2 (19:36→20:30)
[2024-12-09 20:40] LABS: Lactic Acid 2.7 mmol/L (0.5-2.0)
[2024-12-09] MEDS: Mirtazapine 15 MG TABLET PO (20:48)
[2024-12-09] MEDS: OLANZapine 7.5 MG TABLET PO (20:48)
[2024-12-09] MEDS: Benzonatate 100 MG CAPSULE PO (20:49)
--- NOTE | 2024-12-09 21:26 | PM.EVENT ---
Event Note Date of Service: 12/09/24 Event Note: Nurse reported hypotension. Will resuscitate with colloids and crystalloids. Hypotension likely due to frailty, reduced po intake and continuation of home antihypertensives. Doubt sepsis. Obtained lactic acid and ordered chest x-ray. Discontinued home antihypertensives Time Spent With Patient Time: Total time managing care of this patient today ____ minutes.
[2024-12-09] MEDS: Lactated Ringers 1,000 ML 999 ML IV ×2 (21:32→22:46)
[2024-12-09 22:03] LABS: Reflex Lactate? Lactic Acid Added
[2024-12-09] MEDS: Enoxaparin Sodium 40 MG/0.4 ML SYRINGE SUBCUT (22:33)
[2024-12-10] VITALS (9 sets, daily range): BP systolic 101–136; BP diastolic 51–86; PULSE 68–85; RESP 12–20; TEMP 36.1–36.8; O2SAT 92–96
[2024-12-10 00:19] LABS: Reflex Lactate? 2 Y
[2024-12-10 01:15] LABS: ~Lactic Acid-LAB USE ONLY 2.1 mmol/L (0.5-2.0)
[2024-12-10] MEDS: Albuterol/Iprat 2.5/0.5MG 3 ML AMPUL.NEB INHALE ×3 (03:07→21:14)
--- NOTE | 2024-12-10 03:17 | PC.NURSE ---
Pt seen on bed alert and oriented when first seen, denies any pain, still with SOB on exertion, occasional prod cough, mostly feeling anxious, tremors noted. Routine vitals with BP 78/54 manually, HR 72, Dr. Aden was informed, Albumin IV 2 bags given, Lactic acid drawn= 2.7, same MD updated, repeat BP after 82/46, Dr. Aden was made aware. LR 1L bolus given, Pt also c/o increasing SOB with every commode use, no neb order seen, Dr. Aden was notified and ordered, repeat BP 92/66, repeat Lactic =3, MD updated, another LR 1L bolus ordered, repeat Lactic =2.1 repeat BP 94/52, Dr. Aden was updated. Pt woke up at 3a anxious and SOB, pt was coached with breathing, wheezy after commode use, RT paged , neb given, pt insistent on getting med for anxiety, Dr. Aden was informed, no further order at this time, pt was instructed.
[2024-12-10] MEDS: Levothyroxine Sodium 125 MCG TABLET PO (05:49)
[2024-12-10] MEDS: methylPREDNISolone Sod Succ 40 MG/ML VIAL IVPUSH (05:49)
[2024-12-10] MEDS: clonazePAM 0.5 MG TABLET PO ×3 (05:54→18:12)
[2024-12-10] MEDS: Roflumilast 500 MCG TABLET PO (07:42)
[2024-12-10] MEDS: 0.9 % Sodium Chloride Flush 3 ML SYRINGE IVFLUSH ×2 (07:42→17:30)
[2024-12-10] MEDS: Buprenorphine/Naloxone 12/3 mg FILM 1 FILM SUBLINGUAL (07:42)
[2024-12-10] MEDS: Sertraline HCL 100 MG TABLET PO (07:42)
[2024-12-10] MEDS: Clopidogrel Bisulfate 75 MG TABLET PO (07:42)
[2024-12-10] MEDS: Fluticasone/Umeclidinium/Vilanterol 200/62.5/25 BLST.W.DEV 1 PUFF INHALE (08:12)
[2024-12-10 08:52] LABS: Mean Corpuscular HGB Conc 31.4 g/dl (31.0-35.0); Mean Corpuscular Hemoglobin 31.1 pg (27.0-33.0); Mean Corpuscular Volume 98.9 fL (80.0-98.0); Mean Platelet Volume 10.5 fL (9.4-12.3); Platelet Count 122 X10*3/uL (160-400); Red Blood Count 3.54 X10*6/uL (4.20-5.50); White Blood Count 5.3 X10*3/uL (4.8-10.8)
[2024-12-10 09:11] LABS: Anion Gap 11 (12-20); Blood Urea Nitrogen 46 mg/dL (9-16); Calcium 8.8 mg/dL (8.4-10.2); Carbon Dioxide 32 mmol/L (22-29); Chloride 103 mmol/L (96-108); Creatinine Clr Calc Pharmacy 56.1; Estimated Glomerular Filt Rate > 60; Glucose Random 104 mg/dL (60-115); Potassium 5.9 mmol/L (3.3-5.1); Sodium 140 mmol/L (135-145)
[2024-12-10 09:30] LABS: Procalcitonin 0.04 ng/mL
[2024-12-10] MEDS: cefTRIAXone sodium 1 GM VIAL IVPUSH (10:38)
[2024-12-10] MEDS: Sodium Zirconium Cyclosilicate 10 GM POWD.PACK PO (12:38)
--- NOTE | 2024-12-10 15:13 | HO.PM.IMPN ---
Subjective Subjective Date of Service: 12/10/24 Interval History: hypotensive episode overnight hyperkalemia ? pneumonitis on chest imaging Review of Systems has dry cough intermittent Review of Systems: Yes all other systems are reviewed and are negative Physical Exam Vital Signs: Vital Signs: Last Vital Signs Temp 98.1 F 12/10/24 12:00 Pulse 85 12/10/24 12:00 Resp 12 12/10/24 12:00 BP 136/86 12/10/24 12:00 Pulse Ox 96 12/10/24 12:00 O2 Del Method Nasal Cannula 12/10/24 12:00 O2 Flow Rate 2 12/10/24 12:00 Oxygen Flow Rate 2 12/02/24 16:09 BMI result Body Mass Index 20.9 General: AO X 3, no acute distress cvs: rrr,s1s2 heard. pulm: air entry somewhat improving ,has few wheezes GI: +BS, NT, no distention Skin: No rash Neuro: motor grossly intact Psych: appropriate affect Objective Data Active Medications Acetaminophen (Acetaminophen 325 Mg Tablet) 650 mg PO Q6H PRN PRN Reason: Pain, Mild 1-3,fever,headache Last Admin: 12/06/24 03:08 Dose: 650 mg Documented By: DEYSI Albuterol/Ipratropium (Albuterol/Iprat 2.5/0.5mg 3 Ml Ampul.Neb) 3 ml INHALE Q4H PRN PRN Reason: Wheezing Last Admin: 12/10/24 08:12 Dose: 3 ml Documented By: TRINITY Azithromycin (Azithromycin 500 Mg Tablet) 500 mg PO Q24H [facility] Last Admin: 12/09/24 19:36 Dose: 500 mg Documented By: REBA Benzonatate (Benzonatate 100 Mg Capsule) 100 mg PO TID PRN PRN Reason: Cough Last Admin: 12/09/24 20:49 Dose: 100 mg Documented By: REBA Buprenorphine/Naloxone (Buprenorphine/Naloxone 12/3 Mg Film) 1 film SUBLINGUAL DAILY [facility] Last Admin: 12/10/24 07:42 Dose: 1 film Documented By: LUIS ARMANDO Calcium Carbonate (Calcium Carbonate 750 Mg Tab.Chew) 750 mg PO Q4H PRN PRN Reason: Heartburn Ceftriaxone Sodium (Ceftriaxone Sodium 1 Gm Vial) 1 gm IVPUSH Q24H [facility] Last Admin: 12/10/24 10:38 Dose: 1 gm Documented By: LUIS ARMANDO Clonazepam (Clonazepam 0.5 Mg Tablet) 0.5 mg PO Q6H PRN PRN Reason: Anxiety Last Admin: 12/10/24 12:00 Dose: 0.5 mg Documented By: LUIS ARMANDO Clopidogrel Bisulfate (Clopidogrel Bisulfate 75 Mg Tablet) 75 mg PO DAILY [facility] Last Admin: 12/10/24 07:42 Dose: 75 mg Documented By: LUIS ARMANDO Enoxaparin Sodium (Enoxaparin Sodium 40 Mg/0.4 Ml Syringe) 40 mg SUBCUT Q24H [facility] Last Admin: 12/09/24 22:33 Dose: 40 mg Documented By: REBA Fluticasone/Umeclidinium/Vilanterol (Fluticasone/Umeclidinium/Vilanterol 200/62.5/ Blst.W.Dev) 1 puff INHALE RDAILY [facility] Last Admin: 12/10/24 08:12 Dose: 1 puff Documented By: TRINITY Guaifenesin (Guaifenesin La 600 Mg Tab.Er.12h) 600 mg PO BID PRN PRN Reason: Cough Last Admin: 12/09/24 20:49 Dose: 600 mg Documented By: REBA Levothyroxine Sodium (Levothyroxine Sodium 125 Mcg Tablet) 125 mcg PO DAILY@0600 [facility] Last Admin: 12/10/24 05:49 Dose: 125 mcg Documented By: REBA Magnesium Hydroxide (Milk Of Magnesia 30 Ml Oral.Susp) 30 ml PO DAILY PRN PRN Reason: Constipation Meclizine HCl (Meclizine Hcl 25 Mg Tablet) 25 mg PO Q8H PRN PRN Reason: Vertigo Melatonin (Melatonin 3 Mg Tablet) 6 mg PO BEDTIME PRN PRN Reason: Insomnia Last Admin: 12/04/24 20:57 Dose: 6 mg Documented By: MELODY Mirtazapine (Mirtazapine 15 Mg Tablet) 15 mg PO BEDTIME [facility] Last Admin: 12/09/24 20:48 Dose: 15 mg Documented By: REAB Olanzapine (Olanzapine 7.5 Mg Tablet) 7.5 mg PO BEDTIME [facility] Last Admin: 12/09/24 20:48 Dose: 7.5 mg Documented By: CASTILCielo Roflumilast (Roflumilast 500 Mcg Tablet) 500 mcg PO DAILY [facility] Last Admin: 12/10/24 07:42 Dose: 500 mcg Documented By: LUIS ARMANDO Sertraline HCl (Sertraline Hcl 100 Mg Tablet) 100 mg PO DAILY [facility] Last Admin: 12/10/24 07:42 Dose: 100 mg Documented By: LUIS ARMANDO Sodium Chloride (0.9 % Sodium Chloride Flush 3 Ml Syringe) 3 ml IVFLUSH QSHIFT [facility] Last Admin: 12/10/24 07:42 Dose: 3 ml Documented By: LUIS ARMANDO Sodium Zirconium Cyclosilicate (Sodium Zirconium Cyclosilicate 10 Gm Powd.Pack) 10 gm PO DAILY [facility] Labs 12/10/24 08:18 12/10/24 08:18 Labs: Laboratory Results - last 24 hr 12/09/24 12/09/24 12/10/24 19:57 22:15 00:39 MCV MCH MCHC RDW Plt Count MPV Absolute Nucleated RBC Nucleated RBC % (auto) Anion Gap Estim Creat Clear Calc Estimated GFR Random Glucose Lactic Acid 2.7 H* Lactic Acid F/U @ 2Hr 3.0 H* Lactic Acid F/U @ 4Hr 2.1 H* Calcium Procalcitonin 12/10/24 08:18 MCV 98.9 H MCH 31.1 MCHC 31.4 RDW 14.0 Plt Count 122 L MPV 10.5 Absolute Nucleated RBC 0.000 Nucleated RBC % (auto) 0.0 Anion Gap 11 L Estim Creat Clear Calc 56.1 Estimated GFR > 60 Random Glucose 104 Lactic Acid Lactic Acid F/U @ 2Hr Lactic Acid F/U @ 4Hr Calcium 8.8 Procalcitonin 0.04 Assessment and Plan (1) Tachycardia: Status: Acute (2) Frailty: Status: Acute Assessment and Plan: 69-year-old female with a past medical history of COPD, chronic respiratory failure on 2 L of home oxygen, neuropathy, protein calorie malnutrition, anxiety, depression presented to the hospital with a chief complaint of cough and shortness of breath. Noted to be in acute COPD exacerbation. The patient was admitted for management of an acute COPD exacerbation with acute on chronic respiratory failure. cxr possible pneumonitis sob somewhat improving continue nebs steriods ,added ceftriaxone /continue azithromycin hyperkalemia:?multifactorial ( denhydration/steriods,also received LR,on RD at home ) switched to po steriods adjusted diet to low potassium added loklema 10 meq moniter bmp Frailty PT recommends home with services, to be reassed for possible rehab, given what looks like worsening condition sinus tachyhcardia with [facility] official cardiology read show no AFIB improved. monitor Opiate dependence Continue Suboxone Mood disorder/anxeity Continue olanzapine, clonazepam - 0.5mg tid prn, change to q6 prn Hypertension continueLisinopril, metoprolol Peripheral vascular disease Continue Plavix DVT prophylaxis: Lovenox Code status: Full code ongoing need for stay:continue treatment with nebulziers ,iv antibiotics for pneumnitis ,as well as has hyperkalemia ; need close tele ,renal function/electrolytes monitering,weaning down O2 as toelrated . PT to reasess for possible rehab Quality Stroke Does the patient have a stroke diagnosis?: No VTE Prior VTE?: No VTE Risk Level:: Medical - moderate - high VTE Device Contraindication: Treatment Not Indicated VTE Drug Contraindication: N/A - Med Ordered
[2024-12-10 16:13] LABS: Anion Gap 13 (12-20); Blood Urea Nitrogen 46 mg/dL (9-16); Calcium 8.8 mg/dL (8.4-10.2); Carbon Dioxide 31 mmol/L (22-29); Chloride 103 mmol/L (96-108); Creatinine Clr Calc Pharmacy 46.8; Estimated Glomerular Filt Rate > 60; Glucose Random 116 mg/dL (60-115); Potassium 5.2 mmol/L (3.3-5.1); Sodium 142 mmol/L (135-145)
[2024-12-10] MEDS: guaiFENesin LA 600 MG TAB.ER.12H PO (18:12)
[2024-12-10] MEDS: Melatonin 3 MG TABLET 6 MG PO (20:52)
[2024-12-10] MEDS: Mirtazapine 15 MG TABLET PO (20:52)
[2024-12-10] MEDS: OLANZapine 7.5 MG TABLET PO (20:52)
[2024-12-10] MEDS: Azithromycin 500 MG TABLET PO (20:52)
[2024-12-10] MEDS: Enoxaparin Sodium 40 MG/0.4 ML SYRINGE SUBCUT (20:53)
[2024-12-11] VITALS (7 sets, daily range): BP systolic 99–142; BP diastolic 57–66; PULSE 68–74; RESP 12–20; TEMP 35.8–36.8; O2SAT 93–98
[2024-12-11] MEDS: 0.9 % Sodium Chloride Flush 3 ML SYRINGE IVFLUSH ×4 (00:15→21:25)
[2024-12-11] MEDS: clonazePAM 0.5 MG TABLET PO ×3 (05:49→21:24)
[2024-12-11] MEDS: Levothyroxine Sodium 125 MCG TABLET PO (05:49)
[2024-12-11] MEDS: Fluticasone/Umeclidinium/Vilanterol 200/62.5/25 BLST.W.DEV 1 PUFF INHALE (07:48)
[2024-12-11] MEDS: Roflumilast 500 MCG TABLET PO (09:02)
[2024-12-11] MEDS: Clopidogrel Bisulfate 75 MG TABLET PO (09:02)
[2024-12-11] MEDS: Sodium Zirconium Cyclosilicate 10 GM POWD.PACK PO ×2 (09:02→15:55)
[2024-12-11] MEDS: Sertraline HCL 100 MG TABLET PO (09:03)
[2024-12-11] MEDS: Buprenorphine/Naloxone 12/3 mg FILM 1 FILM SUBLINGUAL (09:03)
[2024-12-11] MEDS: cefTRIAXone sodium 1 GM VIAL IVPUSH (09:05)
[2024-12-11 09:27] LABS: Anion Gap 13 (12-20); Blood Urea Nitrogen 43 mg/dL (9-16); Carbon Dioxide 33 mmol/L (22-29); Chloride 101 mmol/L (96-108); Creatinine Clr Calc Pharmacy 56.1; Estimated Glomerular Filt Rate > 60; Glucose Random 85 mg/dL (60-115); Potassium 5.6 mmol/L (3.3-5.1); Sodium 141 mmol/L (135-145)
--- NOTE | 2024-12-11 12:06 | MHC.CM.PN ---
Addendum entered by Ashanti Jimenez 12/12/24 13:53: DP: PT HAS BEEN MEDICALLY CLEARED FOR DC TO [facility] NOW UNABLE TO OFFER A BED. PT IS IN AGREEMENT EITH PLAN. BLS TRANSPORT BOOKED FOR 2 PM [facility]IA [facility]. RN NOTIFIED.FINAL IMM DELIVERED. Original Note: EMR REVIEWED AND PER MD ROUNDS, PT IS NOT MEDICALLY CLEARED FOR DC . [facility] (PT[facility]S [facility] CHOICE FOR [facility]) IS FOLLOWING AND UPDATED VIA [facility]. CM CONTINUES TO FOLLOW
--- NOTE | 2024-12-11 15:30 | HO.PM.IMPN ---
Subjective Subjective Date of Service: 12/11/24 Interval History: hyperkalemia pneumonitis Review of Systems sob seems improved taper oxygen Review of Systems: Yes all other systems are reviewed and are negative Physical Exam Vital Signs: Vital Signs: Last Vital Signs Temp 98.0 F 12/11/24 11:53 Pulse 68 12/11/24 11:53 Resp 12 12/11/24 11:53 BP 111/59 L 12/11/24 11:53 Pulse Ox 95 12/11/24 11:53 O2 Del Method Nasal Cannula 12/11/24 11:53 O2 Flow Rate 2 12/11/24 11:53 Oxygen Flow Rate 2 12/02/24 16:09 BMI result Body Mass Index 20.9 General: AO X 3, no acute distress cvs: rrr,s1s2 heard. pulm: air entry somewhat improving ,has few wheezes GI: +BS, NT, no distention Skin: No rash Neuro: motor grossly intact Psych: appropriate affect Objective Data Active Medications Acetaminophen (Acetaminophen 325 Mg Tablet) 650 mg PO Q6H PRN PRN Reason: Pain, Mild 1-3,fever,headache Last Admin: 12/06/24 03:08 Dose: 650 mg Documented By: DEYSI Albuterol/Ipratropium (Albuterol/Iprat 2.5/0.5mg 3 Ml Ampul.Neb) 3 ml INHALE Q4H PRN PRN Reason: Wheezing Last Admin: 12/10/24 21:14 Dose: 3 ml Documented By: VAN Azithromycin (Azithromycin 500 Mg Tablet) 500 mg PO Q24H [facility] Last Admin: 12/10/24 20:52 Dose: 500 mg Documented By: BRITTNEY Benzonatate (Benzonatate 100 Mg Capsule) 100 mg PO TID PRN PRN Reason: Cough Last Admin: 12/09/24 20:49 Dose: 100 mg Documented By: CASTJUNE Buprenorphine/Naloxone (Buprenorphine/Naloxone 12/3 Mg Film) 1 film SUBLINGUAL DAILY [facility] Last Admin: 12/11/24 09:03 Dose: 1 film Documented By: LUCJUSTINE Calcium Carbonate (Calcium Carbonate 750 Mg Tab.Chew) 750 mg PO Q4H PRN PRN Reason: Heartburn Ceftriaxone Sodium (Ceftriaxone Sodium 1 Gm Vial) 1 gm IVPUSH Q24H [facility] Last Admin: 12/11/24 09:05 Dose: 1 gm Documented By: CHRIS Clonazepam (Clonazepam 0.5 Mg Tablet) 0.5 mg PO Q6H PRN PRN Reason: Anxiety Last Admin: 12/11/24 15:14 Dose: 0.5 mg Documented By: CHRIS Clopidogrel Bisulfate (Clopidogrel Bisulfate 75 Mg Tablet) 75 mg PO DAILY [facility] Last Admin: 12/11/24 09:02 Dose: 75 mg Documented By: CHRIS Enoxaparin Sodium (Enoxaparin Sodium 40 Mg/0.4 Ml Syringe) 40 mg SUBCUT Q24H [facility] Last Admin: 12/10/24 20:53 Dose: 40 mg Documented By: BRITTNEY Fluticasone/Umeclidinium/Vilanterol (Fluticasone/Umeclidinium/Vilanterol 200/62.5 Blst.W.Dev) 1 puff INHALE RDAILY [facility] Last Admin: 12/11/24 07:48 Dose: 1 puff Documented By: YOGESH Guaifenesin (Guaifenesin La 600 Mg Tab.Er.12h) 600 mg PO BID PRN PRN Reason: Cough Last Admin: 12/10/24 18:12 Dose: 600 mg Documented By: LUIS ARMANDO Levothyroxine Sodium (Levothyroxine Sodium 125 Mcg Tablet) 125 mcg PO DAILY@0600 [facility] Last Admin: 12/11/24 05:49 Dose: 125 mcg Documented By: BRITTNEY Magnesium Hydroxide (Milk Of Magnesia 30 Ml Oral.Susp) 30 ml PO DAILY PRN PRN Reason: Constipation Meclizine HCl (Meclizine Hcl 25 Mg Tablet) 25 mg PO Q8H PRN PRN Reason: Vertigo Melatonin (Melatonin 3 Mg Tablet) 6 mg PO BEDTIME PRN PRN Reason: Insomnia Last Admin: 12/10/24 20:52 Dose: 6 mg Documented By: BRITTNEY Mirtazapine (Mirtazapine 15 Mg Tablet) 15 mg PO BEDTIME [facility] Last Admin: 12/10/24 20:52 Dose: 15 mg Documented By: BRITTNEY Olanzapine (Olanzapine 7.5 Mg Tablet) 7.5 mg PO BEDTIME [facility] Last Admin: 12/10/24 20:52 Dose: 7.5 mg Documented By: BRITTNEY Roflumilast (Roflumilast 500 Mcg Tablet) 500 mcg PO DAILY [facility] Last Admin: 12/11/24 09:02 Dose: 500 mcg Documented By: CHRIS Sertraline HCl (Sertraline Hcl 100 Mg Tablet) 100 mg PO DAILY [facility] Last Admin: 12/11/24 09:03 Dose: 100 mg Documented By: CHRIS Sodium Chloride (0.9 % Sodium Chloride Flush 3 Ml Syringe) 3 ml IVFLUSH QSHIFT [facility] Last Admin: 12/11/24 15:14 Dose: 3 ml Documented By: CHRIS Sodium Zirconium Cyclosilicate (Sodium Zirconium Cyclosilicate 10 Gm Powd.Pack) 10 gm PO DAILY [facility] Last Admin: 12/11/24 09:02 Dose: 10 gm Documented By: CHRIS Labs 12/10/24 08:18 12/11/24 08:30 Labs: Laboratory Results - last 24 hr 12/10/24 12/11/24 15:52 08:30 Anion Gap 13 13 Estim Creat Clear Calc 46.8 56.1 Estimated GFR > 60 > 60 Random Glucose 116 H 85 Calcium 8.8 9.0 Assessment and Plan (1) Tachycardia: Status: Acute (2) Frailty: Status: Acute Assessment and Plan: 69-year-old female with a past medical history of COPD, chronic respiratory failure on 2 L of home oxygen, neuropathy, protein calorie malnutrition, anxiety, depression presented to the hospital with a chief complaint of cough and shortness of breath. Noted to be in acute COPD exacerbation. The patient was admitted for management of an acute COPD exacerbation with acute on chronic respiratory failure. cxr possible pneumonitis sob somewhat improving continue nebs steriods ,added ceftriaxone /continue azithromycin hyperkalemia:?multifactorial ( denhydration/steriods,also received LR,on RD at home ) switched to po steriods adjusted diet to low potassium added loklema 10 meq,patient is on home loklema also moniter bmp added nephrology eval Frailty PT recommends home with services, to be reassed for possible rehab, given what looks like worsening condition sinus tachyhcardia with [facility] official cardiology read show no AFIB tachycardia improved. monitor Opiate dependence Continue Suboxone Mood disorder/anxeity Continue olanzapine, clonazepam - 0.5mg tid prn, change to q6 prn Hypertension continueLisinopril, metoprolol Peripheral vascular disease Continue Plavix DVT prophylaxis: Lovenox Code status: Full code ongoing need for stay:continue treatment with nebulziers ,iv antibiotics for pneumnitis ,as well as has hyperkalemia ; need close tele ,renal function/electrolytes monitering,weaning down O2 as toelrated, nephrology input for hyperkalemia . PT to reasess for possible rehab Quality Stroke Does the patient have a stroke diagnosis?: No VTE Prior VTE?: No VTE Risk Level:: Medical - moderate - high VTE Device Contraindication: Treatment Not Indicated VTE Drug Contraindication: N/A - Med Ordered
[2024-12-11] MEDS: predniSONE 20 MG TABLET PO (15:56)
[2024-12-11] MEDS: Acetaminophen 325 MG TABLET 650 MG PO (17:35)
[2024-12-11] MEDS: guaiFENesin LA 600 MG TAB.ER.12H PO (17:35)
[2024-12-11] MEDS: OLANZapine 7.5 MG TABLET PO (19:55)
[2024-12-11] MEDS: Mirtazapine 15 MG TABLET PO (19:55)
[2024-12-11] MEDS: Azithromycin 500 MG TABLET PO (19:55)
[2024-12-11] MEDS: Enoxaparin Sodium 40 MG/0.4 ML SYRINGE SUBCUT (21:24)
[2024-12-12] MEDS: Benzonatate 100 MG CAPSULE PO (00:48)
[2024-12-12] MEDS: Melatonin 3 MG TABLET 6 MG PO (00:48)
[2024-12-12] MEDS: clonazePAM 0.5 MG TABLET PO ×3 (03:21→13:35)
[2024-12-12 04:00] VITALS: BP 133/60; PULSE 68; RESP 16; TEMP 36.1; O2SAT 97
[2024-12-12] MEDS: Levothyroxine Sodium 125 MCG TABLET PO (05:35)
[2024-12-12] MEDS: Sodium Zirconium Cyclosilicate 10 GM POWD.PACK PO (07:19)
[2024-12-12] MEDS: Fluticasone/Umeclidinium/Vilanterol 200/62.5/25 BLST.W.DEV 1 PUFF INHALE (07:41)
[2024-12-12 07:43] VITALS: PULSE 67; RESP 16; O2SAT 99
[2024-12-12 07:56] VITALS: BP 131/61; PULSE 63; RESP 18; TEMP 36.2; O2SAT 97
--- NOTE | 2024-12-12 08:30 | P.CONNP_ITS ---
History of Present Illness Reason for Consult Consult date: 12/12/24 Chief Complaint Chief complaint: COPD History of Present Illness Narrative: Pt is a 69 y/o female with a medical history of COPD with chronic respiratory failure on 2L home O2, neuropathy, protein calorie malnutrition, depression, anxiety, opiate dependence on suboxone. Admitted 12/06 for cough, shortness of breath, being treated for COPD exacerbation. Nephrology consulted for hyperkalemia. 12/11 potassium is 5.6, 12/10 5.2, 5.9; 12/06 was 4.5 12/12 potassium has normalized to 4.7 patient has been receiving intermittent lokelma for management also taking albuterol; pt notes she does take albuterol at home as well and is not aware of any history of elevated potassium. patient is not aware of high potassium problems prior to hospitalization, though per history Review of Systems Constitutional: Reports as per HPI and Reports no additional constitutional complaints Cardiovascular: Denies chest pain, Denies leg edema, Denies lightheadedness and Reports dyspnea on exertion Respiratory: Reports dyspnea on exertion Gastrointestinal: Denies abdominal pain, Denies diarrhea and Denies vomiting Genitourinary: Denies hematuria, Denies dysuria and Denies flank pain Musculoskeletal: Denies arthralgias Skin/Breast: Denies rash PMFSH Past Medical History Medical History Hallucinations, unspecified Hypothyroidism Hypertension Anxiety Peripheral vascular occlusive disease Rectal prolapse Acute and chronic respiratory failure with hypercapnia Sepsis Pneumonia Acute exacerbation of chronic obstructive pulmonary disease (COPD) Hypertension, essential Depression, major, recurrent O2 dependent COPD, severe Family History Family History Father No problems noted. Mother Stomach cancer Brother No problems noted. Brother No problems noted. Brother No problems noted. Brother No problems noted. Brother No problems noted. Brother No problems noted. Sister No problems noted. Sister No problems noted. Sister No problems noted. Sister No problems noted. Surgical History Surgical History History of surgery Amputated toe Hx of cholecystectomy History of appendectomy Social History Social History Household Members: Family Household Members Other:: sister, brothers, brother in law Housing: House Do you presently have visiting nurse or other home services: No Unable to assess alcohol history related to: Unknown Alcohol intake: never Comment: refusing for staff to remain with patient in bathroom Patient Tobacco Use Status: Former Tobacco user Tobacco use type: Cigarette Cigarette Packs Per Day: 0.5 Cigarettes Per Day: 10.0 Years Smoked: 55 yrs Smoked in Last 30 Days: Yes e-Cigarette/Vaping Use: Never Used Second Hand Smoke Exposure: No Use of substances other than those prescribed or required for medical reasons: No Substance Use Type: Marijuana Currently Displaying Signs/Symptoms of Drug Intoxication Withdrawal: No Have you been hit, kicked, punched, or otherwise hurt by someone within the past year? If so, by whom?: No Are you made to feel afraid or neglected: No Advance Directives: No Advance Directives Information Provided: No Do you have a plan to hurt others: No Plan Recently lost weight without trying: No Nutrition Risks: No Nutritional Risk Patient : No service: No Current occupational status: retired and disabled Cognitive needs: No Hearing needs: No Vision needs: No Meds Allergies Allergy/AdvReac Type Severity Reaction Status Date / Time No Known Allergies Allergy Verified 12/02/24 16:16 Active Medications: Current Medications Acetaminophen (Acetaminophen 325 Mg Tablet) 650 mg PO Q6H PRN PRN Reason: Pain, Mild 1-3,fever,headache Last Admin: 12/06/24 03:08 Dose: 650 mg Albuterol/Ipratropium (Albuterol/Iprat 2.5/0.5mg 3 Ml Ampul.Neb) 3 ml INHALE Q4H PRN PRN Reason: Wheezing Last Admin: 12/10/24 21:14 Dose: 3 ml Azithromycin (Azithromycin 500 Mg Tablet) 500 mg PO Q24H [facility] Last Admin: 12/10/24 20:52 Dose: 500 mg Benzonatate (Benzonatate 100 Mg Capsule) 100 mg PO TID PRN PRN Reason: Cough Last Admin: 12/09/24 20:49 Dose: 100 mg Buprenorphine/Naloxone (Buprenorphine/Naloxone 12/3 Mg Film) 1 film SUBLINGUAL DAILY [facility] Last Admin: 12/11/24 09:03 Dose: 1 film Calcium Carbonate (Calcium Carbonate 750 Mg Tab.Chew) 750 mg PO Q4H PRN PRN Reason: Heartburn Ceftriaxone Sodium (Ceftriaxone Sodium 1 Gm Vial) 1 gm IVPUSH Q24H [facility] Last Admin: 12/11/24 09:05 Dose: 1 gm Clonazepam (Clonazepam 0.5 Mg Tablet) 0.5 mg PO Q6H PRN PRN Reason: Anxiety Last Admin: 12/11/24 15:14 Dose: 0.5 mg Clopidogrel Bisulfate (Clopidogrel Bisulfate 75 Mg Tablet) 75 mg PO DAILY [facility] Last Admin: 12/11/24 09:02 Dose: 75 mg Enoxaparin Sodium (Enoxaparin Sodium 40 Mg/0.4 Ml Syringe) 40 mg SUBCUT Q24H [facility] Last Admin: 12/10/24 20:53 Dose: 40 mg Fluticasone/Umeclidinium/Vilanterol (Fluticasone/Umeclidinium/Vilanterol 200/62.5/ Blst.W.Dev) 1 puff INHALE RDAILY [facility] Last Admin: 12/11/24 07:48 Dose: 1 puff Guaifenesin (Guaifenesin La 600 Mg Tab.Er.12h) 600 mg PO BID PRN PRN Reason: Cough Last Admin: 12/10/24 18:12 Dose: 600 mg Levothyroxine Sodium (Levothyroxine Sodium 125 Mcg Tablet) 125 mcg PO DAILY@0600 [facility] Last Admin: 12/11/24 05:49 Dose: 125 mcg Magnesium Hydroxide (Milk Of Magnesia 30 Ml Oral.Susp) 30 ml PO DAILY PRN PRN Reason: Constipation Meclizine HCl (Meclizine Hcl 25 Mg Tablet) 25 mg PO Q8H PRN PRN Reason: Vertigo Melatonin (Melatonin 3 Mg Tablet) 6 mg PO BEDTIME PRN PRN Reason: Insomnia Last Admin: 12/10/24 20:52 Dose: 6 mg Mirtazapine (Mirtazapine 15 Mg Tablet) 15 mg PO BEDTIME [facility] Last Admin: 12/10/24 20:52 Dose: 15 mg Olanzapine (Olanzapine 7.5 Mg Tablet) 7.5 mg PO BEDTIME [facility] Last Admin: 12/10/24 20:52 Dose: 7.5 mg Prednisone (Prednisone 20 Mg Tablet) 20 mg PO DAILY [facility] Last Admin: 12/11/24 15:56 Dose: 20 mg Roflumilast (Roflumilast 500 Mcg Tablet) 500 mcg PO DAILY [facility] Last Admin: 12/11/24 09:02 Dose: 500 mcg Sertraline HCl (Sertraline Hcl 100 Mg Tablet) 100 mg PO DAILY [facility] Last Admin: 12/11/24 09:03 Dose: 100 mg Sodium Chloride (0.9 % Sodium Chloride Flush 3 Ml Syringe) 3 ml IVFLUSH QSHIFT [facility] Last Admin: 12/11/24 15:14 Dose: 3 ml Sodium Zirconium Cyclosilicate (Sodium Zirconium Cyclosilicate 10 Gm Powd.Pack) 10 gm PO DAILY [facility] Last Admin: 12/11/24 09:02 Dose: 10 gm Home Medications ?Medication ?Instructions ?Recorded ?Confirmed ?Last Taken ?Type fluticasone fur. 200 mcg-umeclid 1 ea inhalation DAILY 01/05/24 12/03/24 12/02/24 History 62.5 mcg-vilant 25 mcg inhalat.powder (Trelegy Ellipta) albuterol sulfate 90 mcg/actuation 2 puff inhalation Q6H PRN 06/16/24 12/03/24 Unknown History aerosol inhaler (Ventolin HFA) Shortness Of Breath Or Wheezing mirtazapine 15 mg tablet 15 mg PO BEDTIME 06/16/24 12/03/24 12/02/24 History roflumilast 500 mcg tablet 500 mcg PO DAILY 06/16/24 12/03/24 12/02/24 History clonazepam 0.5 mg tablet 0.5 mg PO TID PRN Anxiety 09/08/24 12/03/24 09/07/24 History guaifenesin 600 mg tablet, 600 mg PO BID PRN Cough 12/03/24 12/03/24 Unknown History extended release 12 hr (Mucinex) sertraline 25 mg tablet 25 mg PO DAILY 12/03/24 12/03/24 12/02/24 History Physical Exam Vital Signs: Last Vital Signs Temp 98.0 F 12/11/24 11:53 Pulse 68 12/11/24 11:53 Resp 12 12/11/24 11:53 BP 111/59 L 12/11/24 11:53 Pulse Ox 95 12/11/24 11:53 O2 Del Method Nasal Cannula 12/11/24 11:53 O2 Flow Rate 2 12/11/24 11:53 Oxygen Flow Rate 2 12/02/24 16:09 BMI result Body Mass Index 20.9 Const General: no acute distress, alert and awake Resp Effort & Inspection: normal respiratory effort and able to speak in complete sentences Auscultation: clear to auscultation bilaterally Cardio Rate: regular rate Rhythm: regular rhythm Heart sounds: S1 normal heart sound present and S2 normal heart sound present GI Palpation (GI): Soft to palpation and nontender General: Yes no CVA tenderness Back/Spine/Pelvis Back: no CVA tenderness Skin Rashes: no rashes Extrem General: No edema Results Lab Results 12/10/24 08:18 12/12/24 08:28 Lab results: Chemistry 12/10/24 12/10/24 12/11/24 08:18 15:52 08:30 Sodium 140 142 141 Potassium 5.9 H D 5.2 H 5.6 H Carbon Dioxide 32 H 31 H 33 H BUN 46 H 46 H 43 H Creatinine 0.76 0.91 0.76 Calcium 8.8 8.8 9.0 Hematology 12/10/24 08:18 WBC 5.3 Hgb 11.0 L Plt Count 122 L Assessment and Plan (1) Hyperkalemia: Status: Acute (2) COPD (chronic obstructive pulmonary disease): Qualifiers: COPD type: unspecified COPD Qualified Code(s): J44.9 - Chronic obstructive pulmonary disease, unspecified Status: Acute Plan Acute hyperkalemia in setting of COPD exacerbation likely secondary to respiratory acidosis (with compensatory metabolic alkalosis) - will get ABG to verify recommend continuing to treat COPD exacerbation to resolve respiratory acidosis recommend to avoid lisinopril and use alternative agent if needed due to hyperkalemia continue PRN lokelma for management of hyperkalemia recommend low potassium diet continue regular blood pressure monitoring Discussed with Dr Enamorado Procedures Date of Service Date of Service: 12/12/24
[2024-12-12 09:00] LABS: Blood Urea Nitrogen 37 mg/dL (9-16); Creatinine Clr Calc Pharmacy 60.1; Estimated Glomerular Filt Rate > 60; Glucose Random 83 mg/dL (60-115)
[2024-12-12 09:07] LABS: Anion Gap 13 (12-20); Carbon Dioxide 36 mmol/L (22-29); Chloride 97 mmol/L (96-108); Potassium 4.7 mmol/L (3.3-5.1); Sodium 141 mmol/L (135-145)
[2024-12-12] MEDS: Buprenorphine/Naloxone 12/3 mg FILM 1 FILM SUBLINGUAL (09:20)
[2024-12-12] MEDS: Clopidogrel Bisulfate 75 MG TABLET PO (09:20)
[2024-12-12] MEDS: predniSONE 20 MG TABLET PO (09:20)
[2024-12-12] MEDS: cefuroxime axetiL 500 MG TABLET PO (09:20)
[2024-12-12] MEDS: Roflumilast 500 MCG TABLET PO (09:20)
[2024-12-12] MEDS: Sertraline HCL 100 MG TABLET PO (09:20)
[2024-12-12 10:28] VITALS: O2SAT 98
[2024-12-12 10:28] LABS: ABG Base Excess 11.6 mmol/L; ABG HCO3 38 mmol/L (22-26); ABG pCO2 62 mmHg (32-45); ABG pH 7.39 (7.35-7.45); ABG pO2 85 mmHg (83-108)
[2024-12-12 11:03] LABS: ABG Refer to POC result
[2024-12-12 12:00] VITALS: BP 109/59; PULSE 68; RESP 18; TEMP 36.8; O2SAT 95
[2024-12-12 14:04] VITALS: BP 121/71; PULSE 85; RESP 20; TEMP 36.4; O2SAT 94
[2024-12-18 16:32] LABS: Renin 2.36 ng/mL/h (0.25-5.82)
== END 2024-12-12 14:09 | disposition skilled nursing facility (03) | DRG 190 ==
LOC: HO.ED 19:49 → HO.EDOVER 20:47 → HO.IMC 21:11 → HO.S3 12-05 11:19
PROVIDERS: Nurse Practitioner Family; Student in an Organized Health Care Education/Training Program; Admitting Provider Hospitalist; Emergency Provider Emergency Medicine Emergency Medical Services; PCP Internal Medicine; Visit Provider Internal Medicine
DX: J44.0 Chronic obstructive pulmonary disease with (acute) lower respiratory infection (principal); J96.21 Acute and chronic respiratory failure with hypoxia; F11.20 Opioid dependence, uncomplicated; E87.4 Mixed disorder of acid-base balance; J20.9 Acute bronchitis, unspecified; J44.1 Chronic obstructive pulmonary disease with (acute) exacerbation; R00.0 Tachycardia, unspecified; F41.0 Panic disorder [episodic paroxysmal anxiety]; F17.210 Nicotine dependence, cigarettes, uncomplicated; Z71.6 Tobacco abuse counseling; I95.9 Hypotension, unspecified; I10 Essential (primary) hypertension; E87.5 Hyperkalemia; I73.9 Peripheral vascular disease, unspecified; R53.81 Other malaise; E86.0 Dehydration; E03.9 Hypothyroidism, unspecified; Z20.822 Contact with and (suspected) exposure to COVID-19; Z99.81 Dependence on supplemental oxygen; Z79.02 Long term (current) use of antithrombotics/antiplatelets; Z79.51 Long term (current) use of inhaled steroids; Z79.890 Hormone replacement therapy; Z79.899 Other long term (current) drug therapy
CPT/HCPCS: 0241U; 36415; 36600; 71045; 80048; 80053; 81001; 82088; 82803; 83605; 83880; 84145; 84244; 84484; 85025; 85027; 87086; 93005; 93306; 94640; 97116; 97161; 97530; 99285; J0696; J1650; J2405; J2919; J7120; P9047; Q9957

== ENCOUNTER → 2024-12-02 16:29 | Outpatient (BNV) | payer MEDICARE, MEDICAID, SELFPAY | PROVIDERS: Emergency Provider Emergency Medicine Emergency Medical Services; Visit Provider Radiology Diagnostic Radiology | DX: J43.9 Emphysema, unspecified (principal) | CPT/HCPCS: 71045 ==

== ENCOUNTER → 2024-12-02 16:29 | Outpatient (BNV) | payer MEDICARE, MEDICAID, SELFPAY | PROVIDERS: Admitting Provider Hospitalist; Emergency Provider Emergency Medicine Emergency Medical Services; PCP Internal Medicine; Visit Provider Internal Medicine | DX: I47.10 Supraventricular tachycardia, unspecified (principal); R00.0 Tachycardia, unspecified; R06.02 Shortness of breath | CPT/HCPCS: 93010 ==

== ENCOUNTER 2024-12-02 19:44 | Outpatient (BNV) | payer MEDICARE, MEDICAID, SELFPAY | END 2024-12-09 21:25 | PROVIDERS: Admitting Provider Hospitalist; Emergency Provider Emergency Medicine Emergency Medical Services; PCP Internal Medicine; Visit Provider Radiology Neuroradiology | DX: R05.9 Cough, unspecified (principal) | CPT/HCPCS: 71045 ==

== ENCOUNTER 2024-12-02 19:44 | Outpatient (BNV) | payer MEDICARE, MEDICAID, SELFPAY | END 2024-12-03 07:00 | PROVIDERS: Admitting Provider Hospitalist; Emergency Provider Emergency Medicine Emergency Medical Services; PCP Internal Medicine; Visit Provider Internal Medicine | DX: I48.91 Unspecified atrial fibrillation (principal) | CPT/HCPCS: 93306 ==

== ENCOUNTER → 2024-12-02 19:44 | Outpatient (BNV) | payer MEDICARE, MEDICAID, SELFPAY | PROVIDERS: Admitting Provider Hospitalist; Emergency Provider Emergency Medicine Emergency Medical Services; PCP Internal Medicine; Visit Provider Internal Medicine | DX: R00.0 Tachycardia, unspecified (principal); R54 Age-related physical debility | CPT/HCPCS: 99223; 99231; 99232; 99233; 99499 ==

== ENCOUNTER → 2024-12-02 19:44 | Outpatient (BNV) | payer MEDICARE, MEDICAID, SELFPAY | PROVIDERS: Admitting Provider Hospitalist; Emergency Provider Emergency Medicine Emergency Medical Services; PCP Internal Medicine; Visit Provider Nurse Practitioner Family | DX: E87.5 Hyperkalemia (principal); J44.9 Chronic obstructive pulmonary disease, unspecified | CPT/HCPCS: 99222 ==

== ENCOUNTER 2025-01-28 16:46 | Emergency (ER) | payer MEDICARE, MEDICAID, SELFPAY ==
--- NOTE | ~2025-01-28 | XR_ITS ---
CLINICAL HISTORY: dyspnea 1 view chest x-ray Comparison: 12/09/2024 Findings: Chronic mild increase of bilateral interstitial lung markings. Mild blunting of the bilateral costophrenic angle is unchanged. Mild emphysematous changes are redemonstrated. Partially imaged accessory azygous fissure. Imaged mediastinum appears unchanged. Small fragments adjacent to right AC joint appear old and unchanged IMPRESSION: No acute findings. This document has been electronically signed by: Brynn Betancur MD on 01/28/2025 18:18:09
[2025-01-28 17:10] VITALS: BP 145/57; BP 150/90; PULSE 78; PULSE 87; RESP 16; TEMP 36.3; O2SAT 92; O2SAT 94; BMI 22.5
[2025-01-28 17:17] VITALS: BP 145/57; PULSE 72; RESP 14; TEMP 36.6; O2SAT 94
--- NOTE | 2025-01-28 17:27 | ED_ITS ---
HPI - SOB/Dyspnea General Chief Complaint: Dyspnea Stated Complaint: difficulty breathing hx thismorning Time Seen by Provider: 01/28/25 17:26 Source: patient, EMS and old records reviewed Mode of arrival: EMS Limitations: no limitations History of Present Illness ED Provider: Dr. Katy Henson HPI Narrative: 69-year-old female with history of oxygen-dependent COPD on 2 L at all times presenting with shortness of breath that began immediately prior to arrival. Patient reports that she was getting in her car to go to an appointment when she developed shortness of breath and feeling panicked. States that she was on her portable oxygen at that time. Admits that she arrived to an appointment and was so short of breath that she flagged down a police lieutenant patrol who then called paramedics. She reports improvement in her symptoms since arriving in the emergency department. Does admit to feeling anxious still. States that she has not had her Klonopin and is due for her dose at dinnertime. She takes it 3 times a day. Otherwise admits to some green sputum production which has been relatively persistent over the last several days. No reported fever, known sick contacts, recent travel, lower extremity edema, chest pain or nausea. Related Data Home Medications ?Medication ?Instructions ?Recorded ?Confirmed fluticasone fur. 200 mcg-umeclid 1 ea inhalation DAILY 01/05/24 12/03/24 62.5 mcg-vilant 25 mcg inhalat.powder (Trelegy Ellipta) albuterol sulfate 90 mcg/actuation 2 puff inhalation Q6H PRN 06/16/24 12/03/24 aerosol inhaler (Ventolin HFA) Shortness Of Breath Or Wheezing mirtazapine 15 mg tablet 15 mg PO BEDTIME 06/16/24 12/03/24 roflumilast 500 mcg tablet 500 mcg PO DAILY 06/16/24 12/03/24 guaifenesin 600 mg tablet, 600 mg PO BID PRN Cough 12/03/24 12/03/24 extended release 12 hr (Mucinex) sertraline 25 mg tablet 25 mg PO DAILY 12/03/24 12/03/24 Previous Rx's ?Medication ?Instructions ?Recorded Walker with wheels and baske, #1 ea 05/04/21 seat, and break sertraline 100 mg tablet 100 mg PO DAILY 90 days #90 tabs 02/28/23 incontinence pad, liner, disp #96 ea 02/07/24 (Pant Liners, Large pads) clopidogrel 75 mg tablet (Plavix) 75 mg PO DAILY bilateral leg 07/09/24 stents 90 days #90 tabs olanzapine 7.5 mg tablet 7.5 mg PO BEDTIME #30 tabs 09/13/24 buprenorphine 12 mg-naloxone 3 mg 1 film sublingual DAILY #7 ea 10/18/24 sublingual film levothyroxine 125 mcg tablet 125 mcg PO DAILY@0600 #90 tabs 11/07/24 cefuroxime axetil 500 mg tablet 500 mg PO Q12H #14 tabs 12/12/24 clonazepam 0.5 mg tablet 0.5 mg PO TID PRN Anxiety #15 tabs 12/12/24 prednisone 20 mg tablet 20 mg PO DAILY #3 tabs 12/12/24 sodium zirconium cyclosilicate 10 10 g PO DAILY PRN hyperkalemia #11 12/12/24 gram oral powder packet (Lokelma) ea doxycycline hyclate 100 mg 100 mg PO DAILY 5 days #5 tabs 01/29/25 tablet,delayed release prednisone 50 mg tablet 50 mg PO DAILY 5 days #5 tabs 01/29/25 Allergies Allergy/AdvReac Type Severity Reaction Status Date / Time No Known Allergies Allergy Verified 01/28/25 17:11 Review of Systems 2 Review of Systems: Yes all other systems are reviewed and are negative [facility] Past Medical History Attestation statement: The following information was validated with the patient. [facility] Narrative: Oxygen-dependent COPD, former smoker Source: old records reviewed Medical History Hallucinations, unspecified Hypothyroidism Hypertension Anxiety Peripheral vascular occlusive disease Rectal prolapse Acute and chronic respiratory failure with hypercapnia Sepsis Pneumonia Acute exacerbation of chronic obstructive pulmonary disease (COPD) Hypertension, essential Depression, major, recurrent O2 dependent COPD, severe Surgical History History of surgery Amputated toe Hx of cholecystectomy History of appendectomy Family History Family History Father No problems noted. Mother Stomach cancer Brother No problems noted. Brother No problems noted. Brother No problems noted. Brother No problems noted. Brother No problems noted. Brother No problems noted. Sister No problems noted. Sister No problems noted. Sister No problems noted. Sister No problems noted. Social History Social History Household Members: Family Household Members Other:: sister, brothers, brother in law Housing: House Do you presently have visiting nurse or other home services: No Unable to assess alcohol history related to: Unknown Alcohol intake: never Comment: refusing for staff to remain with patient in bathroom Patient Tobacco Use Status: Former Tobacco user Tobacco use type: Cigarette Cigarette Packs Per Day: 0.5 Cigarettes Per Day: 10.0 Years Smoked: 55 yrs Smoked in Last 30 Days: No e-Cigarette/Vaping Use: Never Used Second Hand Smoke Exposure: No Use of substances other than those prescribed or required for medical reasons: No Substance Use Type: Marijuana Advance Directives: No Advance Directives Information Provided: No Do you have a plan to hurt others: No Plan service: No Current occupational status: retired and disabled Cognitive needs: No Hearing needs: No Vision needs: No Physical Exam 2 Vital Signs: Vital Signs: Last Vital Signs Temp 98.1 F 01/28/25 23:30 Pulse 91 01/28/25 23:30 Resp 18 01/28/25 23:30 BP 108/55 L 01/28/25 23:30 Pulse Ox 94 01/28/25 23:30 O2 Del Method Nasal Cannula 01/28/25 23:30 O2 Flow Rate 3 01/28/25 21:45 Oxygen Flow Rate 4 01/28/25 17:10 BMI result Body Mass Index 22.5 GENERAL: Ill-appearing, chronically ill-appearing, cachectic, mild respiratory distress. SKIN: Normal skin color for ethnicity, warm, dry, no rashes noted. HEENT: Normocephalic, atraumatic, no stridor, EOMI. NECK: Soft, supple, full ROM, midline structures nontender, no step-offs, no deformities, no lymphadenopathy. CHEST: Heart regular tachycardia, barrel chest, symmetric chest rise and fall. PULMONARY: Diffuse, faint, wheezes throughout, tachypnea, diminished air movement bilaterally, mild respiratory distress. ABDOMINAL: Soft,nontender, quiet bowel sounds in all quadrants. : Deferred. MUSCULOSKELETAL: Normal tone, full range of motion, no deformities, no peripheral edema. NEURO: Alert and oriented to person, CN II through XII intact, no focal neurologic deficits. PSYCHIATRIC: Anxious affect, appropriate demeanor. Medications Administered Discontinued Medications Generic Name Dose Route Start Last Admin Trade Name Fernando PRN Reason Stop Dose Admin Acetaminophen 975 mg 01/28/25 20:36 01/28/25 21:11 Acetaminophen 325 Mg Tablet PO 01/28/25 20:37 975 mg ONCE ONE Administration Clonazepam 0.5 mg 01/28/25 18:32 01/28/25 19:17 Clonazepam 0.5 Mg Tablet PO 01/28/25 18:33 0.5 mg ONCE ONE Administration Clonazepam 1 mg 01/28/25 22:34 01/28/25 22:43 Clonazepam 1 Mg Tablet PO 01/28/25 22:35 1 mg ONCE ONE Administration Albuterol Sulfate 2.5 mg/ 0 mg 01/28/25 18:44 01/28/25 18:49 Albuterol/Ipratropium 3 ml INHALE 01/28/25 18:45 5 dose ONCE ONE Administration Doxycycline Monohydrate 100 mg 01/28/25 18:32 01/28/25 19:17 Doxycycline Monohydrate 100 Mg Capsule PO 01/28/25 18:33 100 mg ONCE ONE Administration Magnesium Sulfate 2 gm in 50 mls @ 25 mls/hr 01/28/25 19:20 01/28/25 21:44 Magnesium Sulfate/H2o IV 01/28/25 21:19 Infused ONCE ONE Infusion Metoclopramide HCl 10 mg 01/28/25 21:22 01/28/25 22:03 Metoclopramide Hcl 10 Mg/2 Ml Vial IVPUSH 01/28/25 21:23 10 mg ONCE ONE Administration Prednisone 50 mg 01/28/25 18:32 01/28/25 19:17 Prednisone 10 Mg Tablet PO 01/28/25 18:33 50 mg ONCE ONE Administration Medical Decision Making Medical Decision Making MDM Narrative: 69-year-old female presenting with shortness of breath in the setting of oxygen- dependent COPD. She was out on her portable oxygen at the time that the symptoms developed. She also feels anxious since she is due for her Klonopin dose right now. Differential diagnosis includes COPD exacerbation, panic attack, ACS, viral URI, seasonal allergies, among many others. Initiated broad- spectrum workup to evaluate further. Will medicate with prednisone, doxycycline for COPD exacerbation, Klonopin for her anxiety. Vital signs are relatively normal, afebrile, 92% on 4 L. Work of breathing is normal at this time. 12:40 a.m. patient feeling improved after 2nd dose of Klonopin. Her heart rate has improved significantly. I suspect she may be overusing her Klonopin at home however, currently she is improved and is requesting discharge home at this time. We will send home with prednisone and doxycycline to cover for COPD exacerbation. Discussed importance of follow as well as strict return precautions. She understands and agrees with plan for discharge. Discharged home in stable condition. Differential Diagnosis Differential Diagnoses: The differential diagnosis associated with the presentation includes ( See above) Admission/Observation Consideration of admission/observation: Escalation of care including admission/observation considered Lab Data MDM Lab Attestation statement: I reviewed the patient's lab results. Thrombocytopenia improved from baseline 01/28/25 18:35 01/28/25 18:35 Labs: Lab Results 01/28/25 01/28/25 Range/Units 18:35 19:26 WBC 6.4 (4.8-10.8) X10*3/uL RBC 4.20 (4.20-5.50) X10*6/uL Hgb 12.5 (12.0-16.0) g/dl Hct 37.7 (37.0-47.0) % MCV 89.8 (80.0-98.0) fL MCH 29.8 (27.0-33.0) pg MCHC 33.2 (31.0-35.0) g/dl RDW 12.9 (11.0-16.0) % Plt Count 149 L (160-400) X10*3/uL MPV 10.0 (9.4-12.3) fL Immature Gran % (Auto) 0.5 H (0.0-0.4) % Neut % (Auto) 78.3 H (45-73) % Lymph % (Auto) 11.1 L (20-40) % [place] % (Auto) 8.2 (2-11) % Eos % (Auto) 1.3 (0-4) % Baso % (Auto) 0.6 (0-2) % Lymph # (Auto) 0.7 L (1.2-4.9) X10*3/uL [place] # (Auto) 0.5 (0.1-1.2) X10*3/uL Eos # (Auto) 0.1 (0.0-0.4) X10*3/uL Baso # (Auto) 0.0 (0.0-0.2) X10*3/uL Abs Immat Gran (auto) 0.03 (0.00-0.03) X10*3/uL Absolute Neuts (auto) 5.0 (2.0-8.3) x10*3/uL Absolute Nucleated RBC 0.000 (0.0-0.012) X10*3/uL Nucleated RBC % (auto) 0.0 (0.0-0.2) /100WBC Sodium 141 (135-145) mmol/L Potassium 4.1 (3.3-5.1) mmol/L Chloride 102 (96-108) mmol/L Carbon Dioxide 32 H (22-29) mmol/L Anion Gap 11 L (12-20) BUN 9 (9-16) mg/dL Creatinine 0.65 (0.5-1.4) mg/dL Estim Creat Clear Calc 65.6 Estimated GFR > 60 Random Glucose 99 (60-115) mg/dL Calcium 9.2 (8.4-10.2) mg/dL Magnesium 1.5 L (1.6-2.6) mg/dL Troponin I High Sens 24.5 H D (<3.5-17.0) ng/L B-Natriuretic Peptide 252 H (<100) pg/mL Influenza Type A (PCR) NEGATIVE (Negative) Influenza Type B (PCR) NEGATIVE (Negative) RSV RNA Qual (PCR) NEGATIVE (Negative) SARS-CoV-2 RNA (RT-PCR) NEGATIVE (Negative) Independent Interpretation I performed an independent interpretation of an: EKG ( My independent interpretation of the ECG reveals normal sinus rhythm with rate of 70, normal axis, normal intervals, no ST elevations or depressions to suggest ischemic changes, relatively unchanged from previous on 12/02/2024 aside from rate.) and Plain X-Ray ( My independent interpretation of the chest x-ray reveals no consolidations, pulmonary edema, pleural effusion, pneumothorax, obvious bony abnormalities. ) Radiology Impression Discussion of test interpretation with radiology: I have reviewed the radiologist's reading. ([address] [address] XRay Report Signed Patient: Gisela Amaya MR#: [id number] : 1955 Acct:[id number] Age/Sex: 69 / F ADM Date: 01/28/25 Loc: HO.ED Attending Dr: Ordering Physician: Katy Henson DO Date of Service: 01/28/25 Procedure(s): XR amish) External Record Review External record reviewed: Inpatient record Prescription Management I considered prescription management with: Antibiotic and Other (steriods) Chronic Conditions Patient?s care impacted by: Hypertension and Other (COPD) Social Determinants Patient?s care significantly limited by Social Determinants of Health including: Other Social Determinant of Health ( divorce, son recently , daughter also recently , low support system) Discharge Plan Discharge Clinical Impression: COPD exacerbation Patient Disposition: Home, Self-Care Instructions: COPD (Chronic Obstructive Pulmonary Disease) (ED) Prescriptions: New prednisone 50 mg tablet 50 mg PO DAILY 5 Days Qty: 5 0RF doxycycline hyclate 100 mg tablet,delayed release (DR/EC) 100 mg PO DAILY 5 Days Qty: 5 0RF No Action (DME) Walker with wheels and baske, seat, and break See Rx Instructions .Route .MEDSUPPLY Qty: 1 0RF Rx Instructions: Walker with wheels, break, seat and basket sertraline 100 mg tablet 100 mg PO DAILY 90 Days Qty: 90 0RF (DME) Pant Liners, Large Pad See Rx Instructions .Route Qty: 96 5RF Rx Instructions: Change as needed, up to 3 per day clopidogrel [Plavix] 75 mg tablet 75 mg PO DAILY 90 Days Qty: 90 1RF levothyroxine 125 mcg tablet 125 mcg PO DAILY@0600 Qty: 90 0RF mirtazapine 15 mg tablet 15 mg PO BEDTIME albuterol sulfate [Ventolin HFA] 90 mcg/actuation HFA aerosol inhaler 2 puff INHALATION Q6H PRN (Reason: Shortness Of Breath Or Wheezing) roflumilast 500 mcg tablet 500 mcg PO DAILY olanzapine 7.5 mg Tablet 7.5 mg PO BEDTIME Qty: 30 0RF buprenorphine-naloxone 12-3 mg film 1 film sublingual DAILY Qty: 7 0RF sertraline 25 mg tablet 25 mg PO DAILY guaifenesin [Mucinex] 600 mg tablet extended release 12hr 600 mg PO BID PRN (Reason: Cough) cefuroxime axetil 500 mg Tablet 500 mg PO Q12H Qty: 14 0RF Lokelma 10 gram powder in packet 10 g PO DAILY PRN (Reason: hyperkalemia) Qty: 11 0RF prednisone 20 mg Tablet 20 mg PO DAILY Qty: 3 0RF clonazepam 0.5 mg tablet 0.5 mg PO TID PRN (Reason: Anxiety) Qty: 15 0RF Trelegy Ellipta 200-62.5-25 mcg blister with device 1 ea inhalation DAILY Print Language: [place]
--- NOTE | 2025-01-28 17:48 | ECG_ITS ---
Test Reason : SOB Blood Pressure : */* mmHG Vent. Rate : 70 BPM Atrial Rate : 70 BPM P-R Int : 116 ms QRS Dur : 74 ms QT Int : 380 ms P-R-T Axes : 68 54 53 degrees QTcB Int : 410 ms Normal sinus rhythm Normal ECG When compared with ECG of 02-Dec-2024 20:49, Premature supraventricular complexes are no longer Present Vent. rate has decreased by 66 bpm Nonspecific T wave abnormality no longer evident in Inferior leads T wave amplitude has increased in Anterolateral leads Referred By: Katy Henson Electronically Signed By: Julio Cesar Viera
[2025-01-28 18:40] LABS: Basophils Percent Auto 0.6 % (0-2); Eosinophils Absolute Auto 0.1 X10*3/uL (0.0-0.4); Eosinophils Percent Auto 1.3 % (0-4); Hematocrit 37.7 % (37.0-47.0); Hemoglobin 12.5 g/dl (12.0-16.0); Imm Gran Abs Auto 0.03 X10*3/uL (0.00-0.03); Imm Gran Pct Auto 0.5 % (0.0-0.4); Lymphocytes Absolute Auto 0.7 X10*3/uL (1.2-4.9); Lymphocytes Percent Auto 11.1 % (20-40); MANUAL DIFF FLAG NO; Mean Corpuscular HGB Conc 33.2 g/dl (31.0-35.0); Mean Corpuscular Hemoglobin 29.8 pg (27.0-33.0); Mean Corpuscular Volume 89.8 fL (80.0-98.0); Monocytes Absolute Auto 0.5 X10*3/uL (0.1-1.2); Monocytes Percent Auto 8.2 % (2-11); Neutrophils Percent Auto 78.3 % (45-73); Platelet Count 149 X10*3/uL (160-400); Red Cell Distribution Width 12.9 % (11.0-16.0); White Blood Count 6.4 X10*3/uL (4.8-10.8)
[2025-01-28 18:45] VITALS: PULSE 71; RESP 11; O2SAT 94
--- OUTSIDE RECORDS SUMMARY | 2025-01-28 18:45 | XMS_ITS | Clinical Summary ---
Author Organization [facility] Address [address] [place] [address] Care Team Providers Care Manager Reimbursement Name Role Phone Unavailable Primary Care Provider Unavailabl e Social History Tobacco Use Types Packs/Day Years Used Date Smoking Tobacco: Never Assessed Sex and Gender Information Value Date Recorded Sex Assigned at Not on file Gender Identity Not on file Sexual Orientation Not on file Plan of Treatment Not on file
[2025-01-28] MEDS: Albuterol Sulfate 2.5 MG, Albuterol/Iprat 2.5/0.5MG 3 ML 3 ML INHALE (18:49)
[2025-01-28 18:55] LABS: Anion Gap 11 (12-20); Blood Urea Nitrogen 9 mg/dL (9-16); Calcium 9.2 mg/dL (8.4-10.2); Carbon Dioxide 32 mmol/L (22-29); Chloride 102 mmol/L (96-108); Creatinine Clr Calc Pharmacy 65.6; Estimated Glomerular Filt Rate > 60; Glucose Random 99 mg/dL (60-115); Magnesium 1.5 mg/dL (1.6-2.6); Potassium 4.1 mmol/L (3.3-5.1); Sodium 141 mmol/L (135-145)
[2025-01-28 19:01] LABS: B Type Natriuretic Peptide 252 pg/mL (<100)
[2025-01-28 19:02] LABS: Troponin-I High Sensitivity 24.5 ng/L (<3.5-17.0)
[2025-01-28 19:14] VITALS: BP 147/67; PULSE 76; RESP 18; TEMP 37.3; O2SAT 92
[2025-01-28] MEDS: predniSONE 10 MG TABLET 50 MG PO (19:17)
[2025-01-28] MEDS: clonazePAM 0.5 MG TABLET PO (19:17)
[2025-01-28] MEDS: Doxycycline Monohydrate 100 MG CAPSULE PO (19:17)
[2025-01-28] MEDS: Magnesium Sulfate/H2O 2 GM/50 ML PIGGYBACK IV (19:39)
--- NOTE | 2025-01-28 19:55 | PC.NURSE ---
Assisted patient up to commode, HR burst to 130's, desat to 80's on 3L once back on stretcher, titrated patient up to 3.5L now sating 95%, HR recovered to 80's, primary RN Eva made aware.
[2025-01-28 20:08] LABS: Influenza A PCR NEGATIVE (Negative); Influenza B PCR NEGATIVE (Negative); Resp Syncy Virus RNA Qual PCR NEGATIVE (Negative); SARS COV2 PCR INHOUSE NEGATIVE (Negative)
[2025-01-28] MEDS: Acetaminophen 325 MG TABLET 975 MG PO (21:11)
[2025-01-28 21:45] VITALS: BP 104/56; PULSE 88; RESP 20; TEMP 37; O2SAT 92
[2025-01-28] MEDS: Metoclopramide HCl 10 MG/2 ML VIAL IVPUSH (22:03)
[2025-01-28] MEDS: clonazePAM 1 MG TABLET PO (22:43)
[2025-01-28 23:30] VITALS: BP 108/55; PULSE 91; RESP 18; TEMP 36.7; O2SAT 94
[2025-01-29 01:33] VITALS: BP 108/55; PULSE 91; RESP 18; TEMP 36.7; O2SAT 94
== END 2025-01-29 01:45 | disposition home or self-care (01) ==
PROVIDERS: Emergency Provider Emergency Medicine; PCP Internal Medicine
DX: J44.1 Chronic obstructive pulmonary disease with (acute) exacerbation (principal); Z99.81 Dependence on supplemental oxygen; R06.02 Shortness of breath; R05.9 Cough, unspecified; F41.9 Anxiety disorder, unspecified; Z03.818 Encounter for observation for suspected exposure to other biological agents ruled out; I10 Essential (primary) hypertension; Z87.891 Personal history of nicotine dependence
CPT/HCPCS: 0241U; 36415; 71046; 80048; 83735; 83880; 84484; 85025; 93005; 94640; 96365; 96366; 96375; 99284; 99285; J2765; J3475

== ENCOUNTER → 2025-01-28 17:45 | Outpatient (BNV) | payer MEDICARE, MEDICAID, SELFPAY | PROVIDERS: Emergency Provider Emergency Medicine; PCP Internal Medicine; Visit Provider Nuclear Medicine | DX: J43.9 Emphysema, unspecified (principal) | CPT/HCPCS: 71046 ==

== ENCOUNTER → 2025-01-28 17:48 | Outpatient (BNV) | payer MEDICARE, MEDICAID, SELFPAY | PROVIDERS: Emergency Provider Emergency Medicine; PCP Internal Medicine; Visit Provider Internal Medicine Cardiovascular Disease | DX: R06.02 Shortness of breath (principal) | CPT/HCPCS: 93010 ==

== ENCOUNTER 2025-02-20 03:44 | Inpatient (IN) | payer MEDICARE, MEDICAID, SELFPAY ==
[2025-02-20] VITALS (9 sets, daily range): BP systolic 117–143; BP diastolic 72–75; PULSE 75–82; RESP 11–18; TEMP 36.7–36.8; O2SAT 92–99
--- NOTE | ~2025-02-20 | XR_ITS ---
CLINICAL HISTORY: SOB 1 view chest x-ray Comparison: None provided Findings: Portions of the exam are obscured by overlying material. There is interstitial consolidation, possible pulmonary edema or pneumonia Heart size is normal. No acute fracture. IMPRESSION: 1. Interstitial consolidation, differential considerations noted. This document has been electronically signed by: Aldo Beverly MD on 02/20/2025 05:47:54
--- NOTE | ~2025-02-20 | CT_ITS ---
CLINICAL HISTORY: sob, r o consolidation CT chest without contrast Comparison: 09/11/2024 Findings: The heart size is normal. The visualized thyroid and mediastinum are unremarkable. Changes of pulmonary bullous disease with areas of scarring or subsegmental atelectasis noted. No new consolidation or effusion. The visualized upper abdomen is unremarkable. No acute fractures. IMPRESSION: 1. Pulmonary bullous disease. No acute findings This document has been electronically signed by: Aldo Beverly MD on 02/20/2025 07:37:05
--- NOTE | 2025-02-20 03:50 | ECG_ITS ---
Test Reason : TACHY Blood Pressure : */* mmHG Vent. Rate : 94 BPM Atrial Rate : 94 BPM P-R Int : 120 ms QRS Dur : 82 ms QT Int : 332 ms P-R-T Axes : 80 67 61 degrees QTcB Int : 415 ms Sinus rhythm with Premature supraventricular complexes Otherwise normal ECG No previous ECGs available Referred By: Norma Brand Electronically Signed By: Julio Cesar Viera
--- OUTSIDE RECORDS SUMMARY | 2025-02-20 05:04 | XMS_ITS | Clinical Summary ---
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
[2025-02-20 05:24] LABS: Venous Blood Gas Refer to POC result
[2025-02-20 05:31] LABS: MANUAL DIFF FLAG NO
[2025-02-20 05:49] LABS: Hematocrit 37.6 % (37.0-47.0); Hemoglobin 12.5 g/dl (12.0-16.0); Imm Gran Abs Auto 0.02 X10*3/uL (0.00-0.03); Imm Gran Pct Auto 0.4 % (0.0-0.4); Lymphocytes Absolute Auto 0.5 X10*3/uL (1.2-4.9); Mean Corpuscular HGB Conc 33.2 g/dl (31.0-35.0); Mean Corpuscular Hemoglobin 29.9 pg (27.0-33.0); Mean Corpuscular Volume 90.0 fL (80.0-98.0); NRBC Abs Auto 0.000 X10*3/uL (0.0-0.012); NRBC Pct Auto 0.0 /100WBC (0.0-0.2); Platelet Count 133 X10*3/uL (160-400); Red Blood Count 4.18 X10*6/uL (4.20-5.50); White Blood Count 4.6 X10*3/uL (4.8-10.8)
[2025-02-20 05:53] LABS: B Type Natriuretic Peptide 39 pg/mL (<100)
[2025-02-20 05:59] LABS: VBG HCO3 36 mmol/L (22-26); VBG O2 % Saturation 85.0 %
[2025-02-20 06:02] LABS: Alanine Aminotransferase 26 U/L (0-31); Albumin Level 4.0 g/dL (3.5-5.0); Alkaline Phosphatase 239 U/L (39-117); Anion Gap 13 (12-20); Aspartate Amino Transferase 60 U/L (5-31); Blood Urea Nitrogen 19 mg/dL (9-16); Calcium 8.8 mg/dL (8.4-10.2); Carbon Dioxide 30 mmol/L (22-29); Chloride 94 mmol/L (96-108); Estimated Glomerular Filt Rate > 60; Potassium 3.4 mmol/L (3.3-5.1); Sodium 134 mmol/L (135-145); Total Protein 6.4 g/dL (6.5-8.0)
[2025-02-20 06:18] LABS: Troponin-I High Sensitivity 10.9 ng/L (<3.5-17.0)
--- NOTE | 2025-02-20 06:28 | ED.GENADULT ---
HPI - General Adult General Stated complaint: Shortness of breath Time Seen by Provider: 02/20/25 05:39 Related Data Home Medications ?Medication ?Instructions ?Recorded ?Confirmed fluticasone fur. 200 mcg-umeclid 1 ea inhalation DAILY 01/05/24 12/03/24 62.5 mcg-vilant 25 mcg inhalat.powder (Trelegy Ellipta) albuterol sulfate 90 mcg/actuation 2 puff inhalation Q6H PRN 06/16/24 12/03/24 aerosol inhaler (Ventolin HFA) Shortness Of Breath Or Wheezing mirtazapine 15 mg tablet 15 mg PO BEDTIME 06/16/24 12/03/24 roflumilast 500 mcg tablet 500 mcg PO DAILY 06/16/24 12/03/24 guaifenesin 600 mg tablet, 600 mg PO BID PRN Cough 12/03/24 12/03/24 extended release 12 hr (Mucinex) sertraline 25 mg tablet 25 mg PO DAILY 12/03/24 12/03/24 Previous Rx's ?Medication ?Instructions ?Recorded Walker with wheels and baske, #1 ea 05/04/21 seat, and break sertraline 100 mg tablet 100 mg PO DAILY 90 days #90 tabs 02/28/23 incontinence pad, liner, disp #96 ea 02/07/24 (Pant Liners, Large pads) clopidogrel 75 mg tablet (Plavix) 75 mg PO DAILY bilateral leg 07/09/24 stents 90 days #90 tabs olanzapine 7.5 mg tablet 7.5 mg PO BEDTIME #30 tabs 09/13/24 buprenorphine 12 mg-naloxone 3 mg 1 film sublingual DAILY #7 ea 10/18/24 sublingual film levothyroxine 125 mcg tablet 125 mcg PO DAILY@0600 #90 tabs 11/07/24 cefuroxime axetil 500 mg tablet 500 mg PO Q12H #14 tabs 12/12/24 clonazepam 0.5 mg tablet 0.5 mg PO TID PRN Anxiety #15 tabs 12/12/24 prednisone 20 mg tablet 20 mg PO DAILY #3 tabs 12/12/24 sodium zirconium cyclosilicate 10 10 g PO DAILY PRN hyperkalemia #11 12/12/24 gram oral powder packet (Lokelma) ea doxycycline hyclate 100 mg 100 mg PO DAILY 5 days #5 tabs 06/18/25 tablet,delayed release prednisone 50 mg tablet 50 mg PO DAILY 5 days #5 tabs 01/29/25 albuterol sulfate 90 mcg/actuation 2 puff inhalation Q4-6H PRN 02/20/25 aerosol inhaler (Ventolin HFA) shortness of breath or wheezing #8.5 grams azithromycin 250 mg tablet 250 mg PO DAILY 4 days #4 tabs 02/20/25 cefuroxime axetil 250 mg tablet 250 mg PO BID #8 tabs 02/20/25 prednisone 50 mg tablet 50 mg PO DAILY #4 tabs 02/20/25 Allergies Allergy/AdvReac Type Severity Reaction Status Date / Time No Known Allergies Allergy Verified 01/28/25 17:11 [facility] Past Medical History Medical History Hallucinations, unspecified Hypothyroidism Hypertension Anxiety Peripheral vascular occlusive disease Rectal prolapse Acute and chronic respiratory failure with hypercapnia Sepsis Pneumonia Acute exacerbation of chronic obstructive pulmonary disease (COPD) Hypertension, essential Depression, major, recurrent O2 dependent COPD, severe Surgical History History of surgery Amputated toe Hx of cholecystectomy History of appendectomy Family History Family History Father No problems noted. Mother Stomach cancer Brother No problems noted. Brother No problems noted. Brother No problems noted. Brother No problems noted. Brother No problems noted. Brother No problems noted. Sister No problems noted. Sister No problems noted. Sister No problems noted. Sister No problems noted. Social History Social History Household Members: Family Household Members Other:: sister, brothers, brother in law Housing: House Do you presently have visiting nurse or other home services: No Unable to assess alcohol history related to: Unknown Alcohol intake: never Comment: refusing for staff to remain with patient in bathroom Patient Tobacco Use Status: Former Tobacco user Tobacco use type: Cigarette Cigarette Packs Per Day: 0.5 Cigarettes Per Day: 10.0 Years Smoked: 55 yrs e-Cigarette/Vaping Use: Never Used Second Hand Smoke Exposure: No Substance Use Type: Marijuana Advance Directives: No Advance Directives Information Provided: Yes service: No Current occupational status: retired and disabled Cognitive needs: No Hearing needs: No Vision needs: No Course Reevaluation(s) Reevaluation #1: I assumed care for this patient at 07:00 69-year-old female with history of COPD On 2.5 supplemental oxygen at home at her baseline presented with COPD exacerbation for the last 2 3 days, because patient remain 89% hypoxic on 2.5L. No fever, no chills. CT chest showed no pneumonia or acute inflammatory lung disease. Time: 08:46 Medical Decision Making Medical Decision Making [facility] Narrative: My interpretation of labs: No significant abnormality in patient's hematology or chemistry, normal troponin and BNP, normal LFTs chest x-ray nonspecific, report read as consolidation versus edema versus pneumonia. due to down time, the image is not available for us to see. CT scan pending Overall, after patient received her p.o. Klonopin, she is doing much better. It is likely that there was a strong anxiety component. At this time, patient looks much better, breathing more comfortable. After the CT scan and ambulation trial, we can determine if the patient needs to be admitted versus discharge home. sign out given to my colleague Dr. Alves Differential Diagnosis Differential Diagnoses: The differential diagnosis associated with the presentation includes ( as above) Admission/Observation Consideration of admission/observation: Escalation of care including admission/observation considered ( given patient's initial presentation, admission was considered) Lab Data [facility] Lab Attestation statement: I reviewed the patient's lab results. 02/20/25 04:30 02/20/25 04:30 Labs: Lab Results 02/20/25 Range/Units 04:30 WBC 4.6 L (4.8-10.8) X10*3/uL RBC 4.18 L (4.20-5.50) X10*6/uL Hgb 12.5 (12.0-16.0) g/dl Hct 37.6 (37.0-47.0) % MCV 90.0 (80.0-98.0) fL MCH 29.9 (27.0-33.0) pg MCHC 33.2 (31.0-35.0) g/dl RDW 13.7 (11.0-16.0) % Plt Count 133 L (160-400) X10*3/uL MPV 10.5 (9.4-12.3) fL Immature Gran % (Auto) 0.4 (0.0-0.4) % Neut % (Auto) 81.6 H (45-73) % Lymph % (Auto) 10.7 L (20-40) % [place] % (Auto) 6.5 (2-11) % Eos % (Auto) 0.4 (0-4) % Baso % (Auto) 0.4 (0-2) % Lymph # (Auto) 0.5 L (1.2-4.9) X10*3/uL [place] # (Auto) 0.3 (0.1-1.2) X10*3/uL Eos # (Auto) 0.0 (0.0-0.4) X10*3/uL Baso # (Auto) 0.0 (0.0-0.2) X10*3/uL Abs Immat Gran (auto) 0.02 (0.00-0.03) X10*3/uL Absolute Neuts (auto) 3.7 (2.0-8.3) x10*3/uL Absolute Nucleated RBC 0.000 (0.0-0.012) X10*3/uL Nucleated RBC % (auto) 0.0 (0.0-0.2) /100WBC VBG pH 7.41 (7.32-7.43) VBG pCO2 56 mmHg VBG pO2 55 mmHg VBG HCO3 36 H (22-26) mmol/L VBG O2 Saturation 85.0 % VBG Base Excess 9.4 mmol/L Sodium 134 L (135-145) mmol/L Potassium 3.4 (3.3-5.1) mmol/L Chloride 94 L (96-108) mmol/L Carbon Dioxide 30 H (22-29) mmol/L Anion Gap 13 (12-20) BUN 19 H (9-16) mg/dL Creatinine 0.74 (0.5-1.4) mg/dL Estim Creat Clear Calc TNP Estimated GFR > 60 Random Glucose 130 H (60-115) mg/dL Lactic Acid 0.8 (0.5-2.0) mmol/L Calcium 8.8 (8.4-10.2) mg/dL Total Bilirubin 1.0 (0.0-1.0) mg/dL Direct Bilirubin 0.4 (0.0-0.5) mg/dL AST 60 H (5-31) U/L ALT 26 (0-31) U/L Alkaline Phosphatase 239 H (39-117) U/L Troponin I High Sens 10.9 D (<3.5-17.0) ng/L B-Natriuretic Peptide 39 (<100) pg/mL Total Protein 6.4 L (6.5-8.0) g/dL Albumin 4.0 (3.5-5.0) g/dL Influenza Type A (PCR) NEGATIVE (Negative) Influenza Type B (PCR) NEGATIVE (Negative) RSV RNA Qual (PCR) NEGATIVE (Negative) SARS-CoV-2 RNA (RT-PCR) NEGATIVE (Negative) Radiology Impression Discussion of test interpretation with radiology: I have reviewed the radiologist's reading. Radiologist Impression: of note, Radiology report would not be crossing over due to down time. Impression: Interstitial consolidation, differential considerations noted ( interstitial consolidation, possible pulmonary edema or pneumonia) Critical Care Time Critical Care Time Critical Care Time: Yes Total Critical Care Time: 45 Attestation: I have personally provided critical care time. Time includes review of lab data, radiology results, discussion with consultants, and monitoring for potential decompensation. Intervention performed as documented. Discharge Plan Discharge Clinical Impression: Chronic lung disease, Anxiety, COPD with acute exacerbation Patient Disposition: Admitted As Inpatient Additional Instructions: Please follow-up with your primary care physician tomorrow. If you have any worsening or new symptoms, please return to the emergency room or call 911 Print Language: Mauritian
[2025-02-20 06:55] LABS: Resp Syncy Virus RNA Qual PCR NEGATIVE (Negative); SARS COV2 PCR INHOUSE NEGATIVE (Negative)
--- NOTE | 2025-02-20 10:06 | PM.IMHP ---
History of Present Illness Date of Service: 02/20/25 Chief Complaint: shortness of breath Patient is a 69-year-old female with a past medical history of chronic respiratory failure with hypoxia on 2-3 L supplemental oxygen, COPD, mood disorder, hypertension, hypothyroidism, chronic opiate dependence on Suboxone who presents to [facility] with complaints of shortness of breath and productive cough of yellow sputum for about 2-3 days prior to hospitalization. The patient reports taking her improvement. She reports increased dyspnea on exertion and required higher oxygen than her baseline. Hence she presented to the emergency room. In the ED patient underwent chest x-ray and CT chest which showed no acute findings She was treated for COPD exacerbation but continues to be short of breath with diffuse wheezing hence we will be observed overnight. Review of Systems Review of Systems: Negative except HPI/interval history. [facility] Medical History Hallucinations, unspecified Hypothyroidism Hypertension Anxiety Peripheral vascular occlusive disease Rectal prolapse Acute and chronic respiratory failure with hypercapnia Sepsis Pneumonia Acute exacerbation of chronic obstructive pulmonary disease (COPD) Hypertension, essential Depression, major, recurrent O2 dependent COPD, severe Family History Father No problems noted. Mother Stomach cancer Brother No problems noted. Brother No problems noted. Brother No problems noted. Brother No problems noted. Brother No problems noted. Brother No problems noted. Sister No problems noted. Sister No problems noted. Sister No problems noted. Sister No problems noted. Surgical History History of surgery Amputated toe Hx of cholecystectomy History of appendectomy Social History Household Members: Family Household Members Other:: sister, brothers, brother in law Housing: House Do you presently have visiting nurse or other home services: No Unable to assess alcohol history related to: Unknown Alcohol intake: never Comment: refusing for staff to remain with patient in bathroom Patient Tobacco Use Status: Former Tobacco user Tobacco use type: Cigarette Cigarette Packs Per Day: 0.5 Cigarettes Per Day: 10.0 Years Smoked: 55 yrs e-Cigarette/Vaping Use: Never Used Second Hand Smoke Exposure: No Substance Use Type: Marijuana Advance Directives: No Advance Directives Information Provided: Yes service: No Current occupational status: retired and disabled Cognitive needs: No Hearing needs: No Vision needs: No Meds Allergies Allergy/AdvReac Type Severity Reaction Status Date / Time No Known Allergies Allergy Verified 01/28/25 17:11 Active Medications: Current Medications Acetaminophen (Acetaminophen 325 Mg Tablet) 650 mg PO Q6H PRN PRN Reason: Pain, Mild 1-3,fever,headache Albuterol/Ipratropium (Albuterol/Iprat 2.5/0.5mg 3 Ml Ampul.Neb) 3 ml INHALE RQ4H WHILE AWAKE [facility] Buprenorphine/Naloxone (Buprenorphine/Naloxone 12/3 Mg Film) 1 film SUBLINGUAL DAILY BRIDGER Calcium Carbonate (Calcium Carbonate 750 Mg Tab.Chew) 750 mg PO Q4H PRN PRN Reason: Heartburn Magnesium Hydroxide (Milk Of Magnesia 30 Ml Oral.Susp) 30 ml PO DAILY PRN PRN Reason: Constipation Melatonin (Melatonin 3 Mg Tablet) 6 mg PO BEDTIME PRN PRN Reason: Insomnia Methylprednisolone Sodium Succinate (Methylprednisolone Sod Succ 40 Mg Vial) 40 mg IVPUSH Q12H [facility] Sodium Chloride (0.9 % Sodium Chloride Flush 3 Ml Syringe) 3 ml IVFLUSH QSHIFT [facility] Home Medications ?Medication ?Instructions ?Recorded ?Confirmed ?Last Taken ?Type fluticasone fur. 200 mcg-umeclid 1 ea inhalation DAILY 01/05/24 12/03/24 12/02/24 History 62.5 mcg-vilant 25 mcg inhalat.powder (Trelegy Ellipta) mirtazapine 15 mg tablet 15 mg PO BEDTIME 06/16/24 12/03/24 12/02/24 History roflumilast 500 mcg tablet 500 mcg PO DAILY 06/16/24 12/03/24 12/02/24 History guaifenesin 600 mg tablet, 600 mg PO BID PRN Cough 12/03/24 12/03/24 Unknown History extended release 12 hr (Mucinex) sertraline 25 mg tablet 25 mg PO DAILY 12/03/24 12/03/24 12/02/24 History Physical Exam Const: Other: Constitutional - Awake and Alert, No apparent distress Eyes - PERRLA, EOMI Cardiovascular - S1S2, RRR, No edema Respiratory - diffuse rhonchi/wheezing Gastrointestinal - NT / ND; +BS; No rebound or guarding - No CVA tenderness Extremities - no calf tenderness bilaterally, no swelling Musculoskeletal - Normal inspection, normal ROM Skin - Warm/Dry Neurological - Alert & oriented x3, No focal deficit Psychological - Appropriate affect Results Labs 02/20/25 04:30 02/20/25 04:30 Labs: Laboratory Results - last 24 hr 02/20/25 04:30 MCV 90.0 MCH 29.9 MCHC 33.2 RDW 13.7 Plt Count 133 L MPV 10.5 Immature Gran % (Auto) 0.4 Neut % (Auto) 81.6 H Lymph % (Auto) 10.7 L [place] % (Auto) 6.5 Eos % (Auto) 0.4 Baso % (Auto) 0.4 Lymph # (Auto) 0.5 L [place] # (Auto) 0.3 Eos # (Auto) 0.0 Baso # (Auto) 0.0 Abs Immat Gran (auto) 0.02 Absolute Neuts (auto) 3.7 Absolute Nucleated RBC 0.000 Nucleated RBC % (auto) 0.0 VBG pH 7.41 VBG pCO2 56 VBG pO2 55 VBG HCO3 36 H VBG O2 Saturation 85.0 VBG Base Excess 9.4 Anion Gap 13 Estim Creat Clear Calc TNP Estimated GFR > 60 Random Glucose 130 H Lactic Acid 0.8 Calcium 8.8 Total Bilirubin 1.0 Direct Bilirubin 0.4 AST 60 H ALT 26 Alkaline Phosphatase 239 H B-Natriuretic Peptide 39 Total Protein 6.4 L Albumin 4.0 Influenza Type A (PCR) NEGATIVE Influenza Type B (PCR) NEGATIVE RSV RNA Qual (PCR) NEGATIVE SARS-CoV-2 RNA (RT-PCR) NEGATIVE Assessment and Plan (1) COPD exacerbation: Status: Acute Plan 69 yo F with COPD, chronic resp failure on 2-3L at baseline who presents with a several day history of sob/cough. Diagnosed with acute copd excerbation. 1. Acute COPD exacerbation solu-medrol / updrafts empiric doxy baseline inhalers 2. Chronic resp failure continue baseline O2 3. Chronic opiate dependence continue suboxone 4. Hypothyroid synthroid 5. Mood continue baseline inhalers 6. PVD plavix 7. HTN continue baseline meds Full Code DVT pptx - Lovenox Quality Stroke Does the patient have a stroke diagnosis?: No VTE Prior VTE?: No VTE Risk Level:: Medical - moderate - high VTE Device Contraindication: N/A - Device Ordered VTE Drug Contraindication: N/A - Med Ordered
[2025-02-20] MEDS: Buprenorphine/Naloxone 12/3 mg FILM 1 FILM SUBLINGUAL (10:49)
[2025-02-20] MEDS: Albuterol/Iprat 2.5/0.5MG 3 ML AMPUL.NEB INHALE ×3 (11:24→19:43)
--- NOTE | 2025-02-20 11:40 | PHA.MEDREC ---
Pharmacy Consult ? Medication Reconciliation Pharmacy has completed the medication reconciliation. Spoke with pt and she confirmed her medications. Pt confirmed her Olanzapine confirming it just increased from 7.5mg tabs to 10mg tabs. Pt confirmed she hasn't been able to take her medications in about 3 days due to not being able to keep anything down.
--- NOTE | 2025-02-20 13:13 | PHA.MEDREC ---
Addendum entered by Ivy Hewitt RPh 02/20/25 13:25: Reviewed by [facility] Original Note: Pharmacy Consult ? Medication Reconciliation Pharmacy has completed the medication reconciliation. Spoke with pt and she confirmed her medications. Pt confirmed she still uses Clopidogrel 75mg tabs daily for blood clotting, stating she still fills them at [facility]; I called her pharmacy and they confirmed the pt has not picked that up since 08/29 for 30 days. Pt confirmed she still uses Trellegy 1 inh daily; [facility] confirming pt picked that up 01/12 for 30 days. Pt states she still takes Levothyroxine, confirming 125mcg, QD; [facility] states that has not been filled since 11/08 for 90.
[2025-02-20] MEDS: Fluticasone/Umeclidinium/Vilanterol 200/62.5/25 BLST.W.DEV 1 PUFF INHALE (14:20)
[2025-02-20] MEDS: 0.9 % Sodium Chloride Flush 3 ML SYRINGE IVFLUSH (16:01)
--- NOTE | 2025-02-20 17:37 | PC.NURSE ---
Report given to [facility]. Plan to move from ED 4 to [facility] 4 upon bed becoming available.
[2025-02-20] MEDS: guaiFEN/Codeine SF 200/20/10ML 10 ML LIQUID 5 ML PO (21:34)
--- NOTE | 2025-02-20 22:28 | PC.NURSE ---
Pt resting in bed. Call gallagher in reach and pt understands use. Commode next to bed and pt able to stand and pivot to commode independently. Pt verbalizes understanding to ask for help if needing anything.
[2025-02-21] VITALS (15 sets, daily range): BP systolic 105–178; BP diastolic 57–87; PULSE 62–94; RESP 14–19; TEMP 36.1–36.7; O2SAT 94–100
[2025-02-21] MEDS: Albuterol/Iprat 2.5/0.5MG 3 ML AMPUL.NEB INHALE ×5 (05:03→20:07)
[2025-02-21] MEDS: guaiFEN/Codeine SF 200/20/10ML 10 ML LIQUID 5 ML PO (06:34)
[2025-02-21] MEDS: 0.9 % Sodium Chloride Flush 3 ML SYRINGE IVFLUSH ×2 (07:32→21:18)
--- NOTE | 2025-02-21 07:35 | PC.NURSE ---
Patient is a 69-year-old female with a past medical history of chronic respiratory failure with hypoxia on 2-3 L supplemental oxygen, COPD, mood disorder, hypertension, hypothyroidism, chronic opiate dependence on Suboxone who presents to [facility] with complaints of shortness of breath and productive cough of yellow sputum for about 2-3 days prior to hospitalization. She reports increased dyspnea on exertion and required higher oxygen than her baseline. Patient alert and oriented. Lungs diminshed with coarse wheezing and a wheezy cough. Respirations even and non-labored at rest but patient gets extremely dyspneic on exertion. Able to ambulate with a walker. Gait steady. Positive pedal pulses with no edema.
[2025-02-21] MEDS: Fluticasone/Umeclidinium/Vilanterol 200/62.5/25 BLST.W.DEV 1 PUFF INHALE (08:30)
[2025-02-21] MEDS: Buprenorphine/Naloxone 12/3 mg FILM 1 FILM SUBLINGUAL (09:16)
--- NOTE | 2025-02-21 09:25 | MHC.CM.PN ---
Addendum entered by Monique Ohara RN 02/21/25 15:21: Changed to inpatient. [facility] delivered. Original Note: [facility] delivered. Patient lives in a home w/ her sister. Reports she doesn't use any assistive devices, but furniture surfs around the home. Sister assists w/ ADL's PRN. Home O2 (2.5L) and nebulizer supplied by [employer]. On suboxone. PCP Eddie Watkins MD HCP on file and verified. DP: Goal is home w/ VNA services and ACP referral. Will need BLS transport for O2. CM will continue to follow.
--- NOTE | 2025-02-21 15:20 | HO.PM.IMPN ---
Subjective Subjective Date of Service: 02/21/25 Interval History: Seen and examined this morning Follow-up for COPD exacerbation Patient reporting shortness of breath despite no hypoxia Reporting dizziness - orthostatics dizziness Review of Systems Review of Systems: Yes all other systems are reviewed and are negative Constitutional Constitutional: Denies chills and Denies fever(s) Cardiovascular Cardiovascular: Denies chest pain and Reports dyspnea Respiratory Respiratory: Reports dyspnea Physical Exam Vital Signs: Vital Signs: Last Vital Signs Temp 98.1 F 02/21/25 11:41 Pulse 84 02/21/25 14:29 Resp 16 02/21/25 11:41 BP 105/57 L 02/21/25 14:29 Pulse Ox 100 02/21/25 11:41 O2 Del Method Nasal Cannula 02/21/25 11:41 O2 Flow Rate 2 02/21/25 11:41 Const: General: cooperative, comfortable, no acute distress, alert and awake Nutritional Appearance: average body habitus Orientation/consciousness: patient oriented x3 Resp: Other: scattered wheeze Effort & Inspection: normal respiratory effort, able to speak in complete sentences, no respiratory distress and no use of accessory muscles Cardio: Rate: regular rate GI: Inspection: No distended Palpation (GI): Soft to palpation and nontender Neuro: General: patient oriented x3, moves all extremities and CN's II-XI intact bilaterally Extrem: General: Yes no calf tenderness Objective Data Active Medications Acetaminophen (Acetaminophen 325 Mg Tablet) 650 mg PO Q6H PRN PRN Reason: Pain, Mild 1-3,fever,headache Last Admin: 02/20/25 20:28 Dose: 650 mg Documented By: MAREN Albuterol/Ipratropium (Albuterol/Iprat 2.5/0.5mg 3 Ml Ampul.Neb) 3 ml INHALE RQ4H WHILE AWAKE [facility] Last Admin: 02/21/25 11:26 Dose: 3 ml Documented By: PENG Albuterol/Ipratropium (Albuterol/Iprat 2.5/0.5mg 3 Ml Ampul.Neb) 3 ml INHALE Q4H PRN PRN Reason: Wheezing Last Admin: 02/21/25 05:03 Dose: 3 ml Documented By: JENNIFER Buprenorphine/Naloxone (Buprenorphine/Naloxone 12/3 Mg Film) 1 film SUBLINGUAL DAILY [facility] Last Admin: 02/21/25 09:16 Dose: 1 film Documented By: MATTI Calcium Carbonate (Calcium Carbonate 750 Mg Tab.Chew) 750 mg PO Q4H PRN PRN Reason: Heartburn Clonazepam (Clonazepam 0.5 Mg Tablet) 0.25 mg PO TID PRN PRN Reason: Anxiety Last Admin: 02/21/25 12:19 Dose: 0.25 mg Documented By: MATTI Comments: administration okay per Lo STEVENSON Clopidogrel Bisulfate (Clopidogrel Bisulfate 75 Mg Tablet) 75 mg PO DAILY [facility] Last Admin: 02/21/25 09:16 Dose: 75 mg Documented By: MATTI Fluticasone/Umeclidinium/Vilanterol (Fluticasone/Umeclidinium/Vilanterol 200/62.5/25 Blst.W.Dev) 1 puff INHALE RDAILY [facility] Last Admin: 02/21/25 08:30 Dose: 1 puff Documented By: STUART Guaifenesin/Codeine Phosphate (Guaifen/Codeine Sf 200/20/10ml 10 Ml Liquid) 5 ml PO Q6H PRN PRN Reason: Cough Last Admin: 02/21/25 06:34 Dose: 5 ml Documented By: MAREN Doxycycline Hyclate 100 mg/ (Sodium Chloride) 250 mls @ 166.67 mls/hr IV Q12H [facility] Last Infusion: 02/21/25 11:07 Dose: Infused Documented By: MATTI Levothyroxine Sodium (Levothyroxine Sodium 125 Mcg Tablet) 125 mcg PO DAILY@0600 [facility] Last Admin: 02/21/25 06:47 Dose: 125 mcg Documented By: MAREN Magnesium Hydroxide (Milk Of Magnesia 30 Ml Oral.Susp) 30 ml PO DAILY PRN PRN Reason: Constipation Melatonin (Melatonin 3 Mg Tablet) 6 mg PO BEDTIME PRN PRN Reason: Insomnia Last Admin: 02/20/25 20:28 Dose: 6 mg Documented By: MAREN Methylprednisolone Sodium Succinate (Methylprednisolone Sod Succ 40 Mg Vial) 40 mg IVPUSH Q12H [facility] Last Admin: 02/21/25 09:16 Dose: 40 mg Documented By: MATTI Mirtazapine (Mirtazapine 15 Mg Tablet) 15 mg PO BEDTIME [facility] Last Admin: 02/20/25 20:28 Dose: 15 mg Documented By: MAREN Olanzapine (Olanzapine 10 Mg Tablet) 10 mg PO BEDTIME [facility] Last Admin: 02/20/25 20:33 Dose: 10 mg Documented By: MAREN Ondansetron HCl (Ondansetron Hcl 4 Mg/2 Ml Vial) 4 mg IVPUSH Q8H PRN PRN Reason: Nausea and Vomiting Roflumilast (Roflumilast 500 Mcg Tablet) 500 mcg PO DAILY [facility] Last Admin: 02/21/25 09:16 Dose: 500 mcg Documented By: MATTI Sertraline HCl (Sertraline Hcl 25 Mg Tablet) 25 mg PO DAILY [facility] Last Admin: 02/21/25 09:16 Dose: 25 mg Documented By: MATTI Sertraline HCl (Sertraline Hcl 100 Mg Tablet) 100 mg PO DAILY [facility] Last Admin: 02/21/25 09:16 Dose: 100 mg Documented By: MATTI Sodium Chloride (0.9 % Sodium Chloride Flush 3 Ml Syringe) [facility] Last Admin: 02/21/25 07:32 Dose: 3 ml Documented By: SCIRPOS Labs 02/20/25 04:30 02/20/25 04:30 Microbiology Microbiology Results: Microbiology 02/20/25 04:36 Blood Culture - Preliminary Blood - Venous No growth after 24 hours. 02/20/25 04:30 Blood Culture - Preliminary Blood - Venous No growth after 24 hours. Assessment and Plan (1) COPD exacerbation: Status: Acute Plan This is 69 yo F with COPD, chronic resp failure on 2-3L at baseline who presents with a several day history of sob/cough. Diagnosed with acute copd excerbation. Acute COPD exacerbation chest CT with no acute finding solu-medrol / updrafts empiric doxy baseline inhalers dizziness orthos negative documented from previous notes, appears chronic no focal deficits appreciated Chronic resp failure continue baseline O2 Chronic opiate dependence continue suboxone Hypothyroid synthroid Mood continue baseline inhalers PVD plavix HTN continue baseline meds Full Code DVT pptx - Lovenox Quality Stroke Does the patient have a stroke diagnosis?: No VTE Prior VTE?: No VTE Risk Level:: Medical - moderate - high VTE Device Contraindication: N/A - Device Ordered VTE Drug Contraindication: N/A - Med Ordered
[2025-02-22] VITALS (9 sets, daily range): BP systolic 133–157; BP diastolic 63–91; PULSE 71–99; RESP 12–18; TEMP 36.1–37; O2SAT 92–99
--- NOTE | 2025-02-22 02:25 | PC.NURSE ---
Call placed to pharmacy concerning this patients scheduled PO Zyprexa at bedtime, per Oct seems medication was scanned twice from ED overflow unit previous night, showing an entry for date 02/21. pharmacist stated unable to correct, and to alert nursing supervisor type photography. Nursing supervisor type photography viewed Mar and entry and stated to this writer editor to give as unscheduled dose as she too unable to undo, also to write note. Patient medicated as ordered.
[2025-02-22] MEDS: Fluticasone/Umeclidinium/Vilanterol 200/62.5/25 BLST.W.DEV 1 PUFF INHALE (07:42)
[2025-02-22] MEDS: Albuterol/Iprat 2.5/0.5MG 3 ML AMPUL.NEB INHALE ×4 (07:43→20:39)
[2025-02-22] MEDS: 0.9 % Sodium Chloride Flush 3 ML SYRINGE IVFLUSH ×3 (08:11→21:30)
[2025-02-22] MEDS: Buprenorphine/Naloxone 12/3 mg FILM 1 FILM SUBLINGUAL (08:11)
--- NOTE | 2025-02-22 15:40 | HO.PM.IMPN ---
Subjective Subjective Date of Service: 02/22/25 Interval History: Seen and examined this morning Follow-up for COPD exacerbation reporting thick phlegm, sob; does not feel ready to go home Constitutional Constitutional: Denies chills and Denies fever(s) Physical Exam Vital Signs: Vital Signs: Last Vital Signs Temp 98.6 F 02/22/25 07:40 Pulse 80 02/22/25 15:37 Resp 18 02/22/25 15:37 BP 157/73 H 02/22/25 07:40 Pulse Ox 99 02/22/25 07:40 O2 Del Method Nasal Cannula 02/22/25 07:40 O2 Flow Rate 2.5 02/22/25 07:40 Const: General: cooperative, comfortable, no acute distress, alert and awake Nutritional Appearance: average body habitus Orientation/consciousness: patient oriented x3 Resp: Other: scattered wheeze Effort & Inspection: normal respiratory effort, able to speak in complete sentences, no respiratory distress and no use of accessory muscles Cardio: Rate: regular rate GI: Inspection: No distended Palpation (GI): Soft to palpation and nontender Neuro: General: patient oriented x3, moves all extremities and CN's II-XI intact bilaterally Extrem: General: Yes no calf tenderness Objective Data Active Medications Acetaminophen (Acetaminophen 325 Mg Tablet) 650 mg PO Q6H PRN PRN Reason: Pain, Mild 1-3,fever,headache Last Admin: 02/20/25 20:28 Dose: 650 mg Documented By: MAREN Albuterol/Ipratropium (Albuterol/Iprat 2.5/0.5mg 3 Ml Ampul.Neb) 3 ml INHALE RQ4H WHILE AWAKE [facility] Last Admin: 02/22/25 15:35 Dose: 3 ml Documented By: TRINITY Albuterol/Ipratropium (Albuterol/Iprat 2.5/0.5mg 3 Ml Ampul.Neb) 3 ml INHALE Q4H PRN PRN Reason: Wheezing Last Admin: 02/21/25 05:03 Dose: 3 ml Documented By: JENNIFER Buprenorphine/Naloxone (Buprenorphine/Naloxone 12/3 Mg Film) 1 film SUBLINGUAL DAILY [facility] Last Admin: 02/22/25 08:11 Dose: 1 film Documented By: JANIE Calcium Carbonate (Calcium Carbonate 750 Mg Tab.Chew) 750 mg PO Q4H PRN PRN Reason: Heartburn Clonazepam (Clonazepam 0.5 Mg Tablet) 0.25 mg PO TID PRN PRN Reason: Anxiety Last Admin: 02/22/25 15:18 Dose: 0.25 mg Documented By: JANIE Clopidogrel Bisulfate (Clopidogrel Bisulfate 75 Mg Tablet) 75 mg PO DAILY [facility] Last Admin: 02/22/25 08:11 Dose: 75 mg Documented By: JANIE Fluticasone/Umeclidinium/Vilanterol (Fluticasone/Umeclidinium/Vilanterol 200/62.5/25 Blst.W.Dev) 1 puff INHALE RDAILY [facility] Last Admin: 02/22/25 07:42 Dose: 1 puff Documented By: COREY Guaifenesin (Guaifenesin La 600 Mg Tab.Er.12h) 600 mg PO BID [facility] Guaifenesin/Codeine Phosphate (Guaifen/Codeine Sf 200/20/10ml 10 Ml Liquid) 5 ml PO Q6H PRN PRN Reason: Cough Last Admin: 02/21/25 06:34 Dose: 5 ml Documented By: MAREN Doxycycline Hyclate 100 mg/ (Sodium Chloride) 250 mls @ 166.67 mls/hr IV Q12H [facility] Last Infusion: 02/22/25 11:42 Dose: Infused Documented By: JANIE Levothyroxine Sodium (Levothyroxine Sodium 125 Mcg Tablet) 125 mcg PO DAILY@0600 [facility] Last Admin: 02/22/25 05:29 Dose: 125 mcg Documented By: MOMO Magnesium Hydroxide (Milk Of Magnesia 30 Ml Oral.Susp) 30 ml PO DAILY PRN PRN Reason: Constipation Melatonin (Melatonin 3 Mg Tablet) 6 mg PO BEDTIME PRN PRN Reason: Insomnia Last Admin: 02/20/25 20:28 Dose: 6 mg Documented By: MAREN Methylprednisolone Sodium Succinate (Methylprednisolone Sod Succ 40 Mg Vial) 40 mg IVPUSH Q12H [facility] Last Admin: 02/22/25 09:51 Dose: 40 mg Documented By: JANIE Mirtazapine (Mirtazapine 15 Mg Tablet) 15 mg PO BEDTIME [facility] Last Admin: 02/21/25 21:15 Dose: 15 mg Documented By: MOMO Olanzapine (Olanzapine 10 Mg Tablet) 10 mg PO BEDTIME [facility] Last Admin: 02/21/25 21:16 Dose: 10 mg Documented By: MOMO Ondansetron HCl (Ondansetron Hcl 4 Mg/2 Ml Vial) 4 mg IVPUSH Q8H PRN PRN Reason: Nausea and Vomiting Last Admin: 02/22/25 15:18 Dose: 4 mg Documented By: JANIE Roflumilast (Roflumilast 500 Mcg Tablet) 500 mcg PO DAILY [facility] Last Admin: 02/22/25 08:11 Dose: 500 mcg Documented By: JANIE Sertraline HCl (Sertraline Hcl 25 Mg Tablet) 25 mg PO DAILY [facility] Last Admin: 02/22/25 08:11 Dose: 25 mg Documented By: JANIE Sertraline HCl (Sertraline Hcl 100 Mg Tablet) 100 mg PO DAILY [facility] Last Admin: 02/22/25 08:11 Dose: 100 mg Documented By: JANIE Sodium Chloride (0.9 % Sodium Chloride Flush 3 Ml Syringe) [facility] Last Admin: 02/22/25 15:17 Dose: 3 ml Documented By: JANIE Labs 02/20/25 04:30 02/20/25 04:30 Microbiology Microbiology Results: Microbiology 02/20/25 04:30 Blood Culture - Preliminary Blood - Venous No growth after 48 hours. 02/20/25 04:36 Blood Culture - Preliminary Blood - Venous No growth after 48 hours. Assessment and Plan (1) COPD with acute exacerbation: Status: Acute Plan This is 69 yo F with COPD, chronic resp failure on 2-3L at baseline who presents with a several day history of sob/cough. Diagnosed with acute copd excerbation. Acute COPD exacerbation chest CT with no acute finding solu-medrol - change to prednisone in am; continue updrafts empiric doxy add mucinex/CPT baseline inhalers dizziness orthos negative documented from previous notes, appears chronic no focal deficits appreciated denies dizziness today Chronic resp failure continue baseline O2 Chronic opiate dependence continue suboxone Hypothyroid synthroid Mood continue baseline inhalers PVD plavix HTN continue baseline meds Full Code DVT pptx - Lovenox Quality Stroke Does the patient have a stroke diagnosis?: No VTE Prior VTE?: No VTE Risk Level:: Medical - moderate - high VTE Device Contraindication: N/A - Device Ordered VTE Drug Contraindication: N/A - Med Ordered
[2025-02-22] MEDS: guaiFENesin LA 600 MG TAB.ER.12H PO (20:30)
[2025-02-23] VITALS (9 sets, daily range): BP systolic 140–175; BP diastolic 65–77; PULSE 74–90; RESP 12–20; TEMP 36.1–36.9; O2SAT 95–98
[2025-02-23] MEDS: Albuterol/Iprat 2.5/0.5MG 3 ML AMPUL.NEB INHALE ×4 (08:07→20:18)
[2025-02-23] MEDS: Fluticasone/Umeclidinium/Vilanterol 200/62.5/25 BLST.W.DEV 1 PUFF INHALE (08:08)
[2025-02-23] MEDS: guaiFEN/Codeine SF 200/20/10ML 10 ML LIQUID 5 ML PO ×2 (08:14→17:25)
[2025-02-23] MEDS: Buprenorphine/Naloxone 12/3 mg FILM 1 FILM SUBLINGUAL (08:14)
[2025-02-23] MEDS: 0.9 % Sodium Chloride Flush 3 ML SYRINGE IVFLUSH ×3 (08:15→20:40)
[2025-02-23] MEDS: guaiFENesin LA 600 MG TAB.ER.12H PO ×2 (08:15→20:39)
[2025-02-23 08:29] LABS: MANUAL DIFF FLAG NO
[2025-02-23 08:32] LABS: Hematocrit 38.3 % (37.0-47.0); Hemoglobin 12.0 g/dl (12.0-16.0); Imm Gran Abs Auto 0.02 X10*3/uL (0.00-0.03); Imm Gran Pct Auto 0.5 % (0.0-0.4); Lymphocytes Absolute Auto 0.7 X10*3/uL (1.2-4.9); Mean Corpuscular HGB Conc 31.3 g/dl (31.0-35.0); Mean Corpuscular Hemoglobin 29.6 pg (27.0-33.0); Mean Corpuscular Volume 94.3 fL (80.0-98.0); NRBC Abs Auto 0.000 X10*3/uL (0.0-0.012); NRBC Pct Auto 0.0 /100WBC (0.0-0.2); Platelet Count 147 X10*3/uL (160-400); Red Blood Count 4.06 X10*6/uL (4.20-5.50); White Blood Count 3.6 X10*3/uL (4.8-10.8)
--- NOTE | 2025-02-23 10:07 | PM.CNGS ---
History of Present Illness Consult details Consult date: 02/23/25 Narrative: 68-year-old female with known COPD on O2 supplementation, peripheral vascular disease, neuropathy, and depression admitted 3 days ago because of increasing shortness of breath, body malaise and coughing. She was therefore admitted for acute on chronic respiratory failure. She has known abdominal wall hernias. She says she has had a mesh before. She says that she has had recurrent hernias and stated that she had tenderness on her hernias at the level of the umbilicus. She denies any nausea or vomiting. She is passing flatus. She does have poor baseline level of health and is not very active anymore in view of her COPD. She gets short of breath very easily. Review of Systems Constitutional: Constitutional: Denies chills and Denies fever(s) Cardiovascular: Cardiovascular: Reports dyspnea and Reports dyspnea on exertion Respiratory: Respiratory: Reports dyspnea and Reports dyspnea on exertion Gastrointestinal: Gastrointestinal: Denies change in bowel habits and Denies vomiting Genitourinary: Genitourinary: Denies difficulty voiding PMFSH Past Medical History Medical History (Updated 02/23/25 @ 10:09 by Nolan Sweet MD) Incisional hernia COPD (chronic obstructive pulmonary disease) Chronic respiratory failure with hypoxia Hallucinations, unspecified Hypothyroidism Hypertension Anxiety Peripheral vascular occlusive disease Rectal prolapse Acute and chronic respiratory failure with hypercapnia Sepsis Pneumonia Acute exacerbation of chronic obstructive pulmonary disease (COPD) Hypertension, essential Depression, major, recurrent O2 dependent COPD, severe Family History Family History Father No problems noted. Mother Stomach cancer Brother No problems noted. Brother No problems noted. Brother No problems noted. Brother No problems noted. Brother No problems noted. Brother No problems noted. Sister No problems noted. Sister No problems noted. Sister No problems noted. Sister No problems noted. Surgical History Surgical History History of surgery Amputated toe Hx of cholecystectomy History of appendectomy Social History Social History Household Members: Family Household Members Other:: sister, brothers, brother in law Housing: House Do you presently have visiting nurse or other home services: No Unable to assess alcohol history related to: Unknown Alcohol intake: never Comment: refusing for staff to remain with patient in bathroom Patient Tobacco Use Status: Former Tobacco user Tobacco use type: Cigarette Cigarette Packs Per Day: 0.5 Cigarettes Per Day: 10.0 Years Smoked: 55 yrs e-Cigarette/Vaping Use: Never Used Second Hand Smoke Exposure: No Substance Use Type: Marijuana service: No Current occupational status: retired and disabled Cognitive needs: No Hearing needs: No Vision needs: No Meds Allergies Allergy/AdvReac Type Severity Reaction Status Date / Time No Known Allergies Allergy Verified 01/28/25 17:11 Active Medications: Current Medications Acetaminophen (Acetaminophen 325 Mg Tablet) 650 mg PO Q6H PRN PRN Reason: Pain, Mild 1-3,fever,headache Last Admin: 02/20/25 20:28 Dose: 650 mg Albuterol/Ipratropium (Albuterol/Iprat 2.5/0.5mg 3 Ml Ampul.Neb) 3 ml INHALE RQ4H WHILE AWAKE [facility] Last Admin: 02/23/25 08:07 Dose: 3 ml Albuterol/Ipratropium (Albuterol/Iprat 2.5/0.5mg 3 Ml Ampul.Neb) 3 ml INHALE Q4H PRN PRN Reason: Wheezing Last Admin: 02/21/25 05:03 Dose: 3 ml Buprenorphine/Naloxone (Buprenorphine/Naloxone 12/3 Mg Film) 1 film SUBLINGUAL DAILY [facility] Last Admin: 02/23/25 08:14 Dose: 1 film Calcium Carbonate (Calcium Carbonate 750 Mg Tab.Chew) 750 mg PO Q4H PRN PRN Reason: Heartburn Clonazepam (Clonazepam 0.5 Mg Tablet) 0.25 mg PO TID PRN PRN Reason: Anxiety Last Admin: 02/23/25 08:14 Dose: 0.25 mg Clopidogrel Bisulfate (Clopidogrel Bisulfate 75 Mg Tablet) 75 mg PO DAILY [facility] Last Admin: 02/23/25 08:15 Dose: 75 mg Fluticasone/Umeclidinium/Vilanterol (Fluticasone/Umeclidinium/Vilanterol 200/62.5/25 Blst.W.Dev) 1 puff INHALE RDAILY [facility] Last Admin: 02/23/25 08:08 Dose: 1 puff Guaifenesin (Guaifenesin La 600 Mg Tab.Er.12h) 600 mg PO BID [facility] Last Admin: 02/23/25 08:15 Dose: 600 mg Guaifenesin/Codeine Phosphate (Guaifen/Codeine Sf 200/20/10ml 10 Ml Liquid) 5 ml PO Q6H PRN PRN Reason: Cough Last Admin: 02/23/25 08:14 Dose: 5 ml Doxycycline Hyclate 100 mg/ (Sodium Chloride) 250 mls @ 166.67 mls/hr IV Q12H [facility] Last Infusion: 02/22/25 23:37 Dose: Infused Levothyroxine Sodium (Levothyroxine Sodium 125 Mcg Tablet) 125 mcg PO DAILY@0600 [facility] Last Admin: 02/23/25 06:15 Dose: 125 mcg Magnesium Hydroxide (Milk Of Magnesia 30 Ml Oral.Susp) 30 ml PO DAILY PRN PRN Reason: Constipation Meclizine HCl (Meclizine Hcl 12.5 Mg Tablet) 12.5 mg PO Q8H PRN PRN Reason: dizziness Melatonin (Melatonin 3 Mg Tablet) 6 mg PO BEDTIME PRN PRN Reason: Insomnia Last Admin: 02/20/25 20:28 Dose: 6 mg Mirtazapine (Mirtazapine 15 Mg Tablet) 15 mg PO BEDTIME [facility] Last Admin: 02/22/25 20:30 Dose: 15 mg Olanzapine (Olanzapine 10 Mg Tablet) 10 mg PO BEDTIME [facility] Last Admin: 02/22/25 20:30 Dose: 10 mg Ondansetron HCl (Ondansetron Hcl 4 Mg/2 Ml Vial) 4 mg IVPUSH Q8H PRN PRN Reason: Nausea and Vomiting Last Admin: 02/22/25 15:18 Dose: 4 mg Prednisone (Prednisone 20 Mg Tablet) 40 mg PO DAILY [facility] Last Admin: 02/23/25 08:15 Dose: 40 mg Roflumilast (Roflumilast 500 Mcg Tablet) 500 mcg PO DAILY [facility] Last Admin: 02/23/25 08:14 Dose: 500 mcg Sertraline HCl (Sertraline Hcl 25 Mg Tablet) 25 mg PO DAILY [facility] Last Admin: 02/23/25 08:15 Dose: 25 mg Sertraline HCl (Sertraline Hcl 100 Mg Tablet) 100 mg PO DAILY [facility] Last Admin: 02/23/25 08:15 Dose: 100 mg Sodium Chloride (0.9 % Sodium Chloride Flush 3 Ml Syringe) 3 ml IVFLUSH QSHIFT [facility] Last Admin: 02/23/25 08:15 Dose: 3 ml Home Medications ?Medication ?Instructions ?Recorded ?Confirmed ?Last Taken ?Type fluticasone fur. 200 mcg-umeclid 1 ea inhalation DAILY 01/05/24 02/20/25 02/17/25 History 62.5 mcg-vilant 25 mcg inhalat.powder (Trelegy Ellipta) mirtazapine 15 mg tablet 15 mg PO BEDTIME 06/16/24 02/20/25 02/17/25 History roflumilast 500 mcg tablet 500 mcg PO DAILY 06/16/24 02/20/25 02/17/25 History sertraline 25 mg tablet 25 mg PO DAILY 12/03/24 02/20/25 02/17/25 History clonazepam 0.5 mg tablet 0.25 mg PO TID PRN anxiety 02/20/25 02/20/25 Unknown History olanzapine 10 mg tablet 10 mg PO BEDTIME 02/20/25 02/20/25 02/17/25 History Physical Exam Vital Signs: Vital Signs: Last Vital Signs Temp 97.6 F 02/23/25 07:45 Pulse 78 02/23/25 08:09 Resp 18 02/23/25 08:09 BP 153/72 H 02/23/25 07:45 Pulse Ox 98 02/23/25 07:45 O2 Del Method Nasal Cannula 02/23/25 07:45 O2 Flow Rate 2 02/23/25 07:45 Const: Other: Shortness of breath, mild General: comfortable Resp: Other: Slightly short of breath especially when speaking Cardio: Rate: regular rate GI: Other: Soft, guarding, no rebound, to palpable hernias, 1 on the umbilicus, about 2.5 cm, and another just above this, also about 2.5 cm, appearing chronically incarcerated Results Labs 02/23/25 08:21 02/20/25 04:30 Labs: Abnormal lab results 02/23/25 Range/Units 08:21 WBC 3.6 L (4.8-10.8) X10*3/uL RBC 4.06 L (4.20-5.50) X10*6/uL Plt Count 147 L (160-400) X10*3/uL Immature Gran % (Auto) 0.5 H (0.0-0.4) % Lymph % (Auto) 18.7 L (20-40) % Lymph # (Auto) 0.7 L (1.2-4.9) X10*3/uL Short CBC 02/23/25 Range/Units 08:21 WBC 3.6 L (4.8-10.8) X10*3/uL Hgb 12.0 (12.0-16.0) g/dl Hct 38.3 (37.0-47.0) % Plt Count 147 L (160-400) X10*3/uL All other labs normal. Assessment and Plan (1) Incisional hernia: Status: Acute She has had multiple hernias. She states that she had repairs in the past and has a a large mesh. She has had recurrent hernias and mentions that the hernia at the umbilical area and and just above this are bothering her. This currently did not appear to be causing any small-bowel obstruction. This are likely to be chronically incarcerated. She is not had good surgical candidate in view her very poor baseline respiratory status. We can order for a CAT scan to define this hernias however. Her abdominal exam is benign. Procedures Date of Service Date of Service: 02/23/25
--- NOTE | 2025-02-23 15:06 | P.PNIM_ITS ---
Subjective Subjective Date of Service: 02/23/25 Interval History: Seen and examined this morning Follow-up for COPD exacerbation Patient reports she is not feeling well, reporting intermittent dizziness, shortness of breath with movement Constitutional Constitutional: Denies chills and Denies fever(s) Physical Exam 2 Vital Signs: Vital Signs: Last Vital Signs Temp 97.6 F 02/23/25 07:45 Pulse 75 02/23/25 11:39 Resp 18 02/23/25 11:39 BP 153/72 H 02/23/25 07:45 Pulse Ox 98 02/23/25 07:45 O2 Del Method Nasal Cannula 02/23/25 07:45 O2 Flow Rate 2 02/23/25 07:45 Const: General: cooperative, comfortable, no acute distress, alert and awake Nutritional Appearance: average body habitus Orientation/consciousness: p atient oriented x3 Resp: Other: scattered wheeze Effort & Inspection: normal respiratory effort, able to speak in complete sentences, no respiratory distress and no use of accessory muscles Cardio: Rate: regular rate GI: Inspection: No distended Palpation (GI): Soft to palpation and nontender Neuro: General: patient oriented x3, moves all extremities and CN's II-XI intact bilaterally Extrem: General: Yes no calf tenderness Objective Data Active Medications Acetaminophen (Acetaminophen 325 Mg Tablet) 650 mg PO Q6H PRN PRN Reason: Pain, Mild 1-3,fever,headache Last Admin: 02/20/25 20:28 Dose: 650 mg Documented By: MAREN Albuterol/Ipratropium (Albuterol/Iprat 2.5/0.5mg 3 Ml Ampul.Neb) 3 ml INHALE RQ4H WHILE AWAKE [facility] Last Admin: 02/23/25 11:38 Dose: 3 ml Documented By: TRINITY Albuterol/Ipratropium (Albuterol/Iprat 2.5/0.5mg 3 Ml Ampul.Neb) 3 ml INHALE Q4H PRN PRN Reason: Wheezing Last Admin: 02/21/25 05:03 Dose: 3 ml Documented By: JENNIFER Buprenorphine/Naloxone (Buprenorphine/Naloxone 12/3 Mg Film) 1 film SUBLINGUAL DAILY [facility] Last Admin: 02/23/25 08:14 Dose: 1 film Documented By: LUIS ARMANDO Calcium Carbonate (Calcium Carbonate 750 Mg Tab.Chew) 750 mg PO Q4H PRN PRN Reason: Heartburn Clonazepam (Clonazepam 0.5 Mg Tablet) 0.25 mg PO TID PRN PRN Reason: Anxiety Last Admin: 02/23/25 08:14 Dose: 0.25 mg Documented By: LUIS ARMANDO Comments: Clopidogrel Bisulfate (Clopidogrel Bisulfate 75 Mg Tablet) 75 mg PO DAILY [facility] Last Admin: 02/23/25 08:15 Dose: 75 mg Documented By: LUIS ARMANDO Doxycycline Monohydrate (Doxycycline Monohydrate 100 Mg Capsule) 100 mg PO BID [facility] Fluticasone/Umeclidinium/Vilanterol (Fluticasone/Umeclidinium/Vilanterol 200/62.5/25 Blst.W.Dev) 1 puff INHALE RDAILY [facility] Last Admin: 02/23/25 08:08 Dose: 1 puff Documented By: TRINITY Guaifenesin (Guaifenesin La 600 Mg Tab.Er.12h) 600 mg PO BID [facility] Last Admin: 02/23/25 08:15 Dose: 600 mg Documented By: LUIS ARMANDO Guaifenesin/Codeine Phosphate (Guaifen/Codeine Sf 200/20/10ml 10 Ml Liquid) 5 ml PO Q6H PRN PRN Reason: Cough Last Admin: 02/23/25 08:14 Dose: 5 ml Documented By: LUIS ARMANDO Comments: Levothyroxine Sodium (Levothyroxine Sodium 125 Mcg Tablet) 125 mcg PO DAILY@0600 [facility] Last Admin: 02/23/25 06:15 Dose: 125 mcg Documented By: MOMO Magnesium Hydroxide (Milk Of Magnesia 30 Ml Oral.Susp) 30 ml PO DAILY PRN PRN Reason: Constipation Meclizine HCl (Meclizine Hcl 12.5 Mg Tablet) 12.5 mg PO Q8H PRN PRN Reason: dizziness Melatonin (Melatonin 3 Mg Tablet) 6 mg PO BEDTIME PRN PRN Reason: Insomnia Last Admin: 02/20/25 20:28 Dose: 6 mg Documented By: MAREN Mirtazapine (Mirtazapine 15 Mg Tablet) 15 mg PO BEDTIME [facility] Last Admin: 02/22/25 20:30 Dose: 15 mg Documented By: MOMO Olanzapine (Olanzapine 10 Mg Tablet) 10 mg PO BEDTIME [facility] Last Admin: 02/22/25 20:30 Dose: 10 mg Documented By: MOMO Ondansetron HCl (Ondansetron Hcl 4 Mg/2 Ml Vial) 4 mg IVPUSH Q8H PRN PRN Reason: Nausea and Vomiting Last Admin: 02/22/25 15:18 Dose: 4 mg Documented By: JANIE Prednisone (Prednisone 20 Mg Tablet) 40 mg PO DAILY [facility] Last Admin: 02/23/25 08:15 Dose: 40 mg Documented By: LUIS ARMANDO Roflumilast (Roflumilast 500 Mcg Tablet) 500 mcg PO DAILY [facility] Last Admin: 02/23/25 08:14 Dose: 500 mcg Documented By: LUIS ARMANDO Sertraline HCl (Sertraline Hcl 25 Mg Tablet) 25 mg PO DAILY [facility] Last Admin: 02/23/25 08:15 Dose: 25 mg Documented By: LUIS ARMANDO Sertraline HCl (Sertraline Hcl 100 Mg Tablet) 100 mg PO DAILY [facility] Last Admin: 02/23/25 08:15 Dose: 100 mg Documented By: LUIS ARMANDO Sodium Chloride (0.9 % Sodium Chloride Flush 3 Ml Syringe) 3 ml IVFLUSH QSHIFT [facility] Last Admin: 02/23/25 08:15 Dose: 3 ml Documented By: LUIS ARMANDO Labs 02/23/25 08:21 02/20/25 04:30 Labs: Laboratory Results - last 24 hr 02/23/25 08:21 MCV 94.3 MCH 29.6 MCHC 31.3 RDW 13.9 Plt Count 147 L MPV 10.1 Immature Gran % (Auto) 0.5 H Neut % (Auto) 72.3 Lymph % (Auto) 18.7 L [place] % (Auto) 8.2 Eos % (Auto) 0.0 Baso % (Auto) 0.3 Lymph # (Auto) 0.7 L [place] # (Auto) 0.3 Eos # (Auto) 0.0 Baso # (Auto) 0.0 Abs Immat Gran (auto) 0.02 Absolute Neuts (auto) 2.6 Absolute Nucleated RBC 0.000 Nucleated RBC % (auto) 0.0 Assessment and Plan (1) COPD with acute exacerbation: Status: Acute Plan This is 69 yo F with COPD, chronic resp failure on 2-3L at baseline who presents with a several day history of sob/cough. Diagnosed with acute copd excerbation. Acute COPD exacerbation chest CT with no acute finding trop, BNP negative solu-medrol weaned to prednisone empiric doxy continue breathing treatments add mucinex/CPT baseline inhalers dizziness orthos negative documented from previous notes, appears chronic. intermittent. has a diagnosis of BPPV on problem list no focal deficits appreciated denies dizziness today prn meclizine Chronic resp failure continue baseline O2 Chronic opiate dependence continue suboxone Hypothyroid synthroid Mood continue baseline inhalers PVD plavix HTN continue baseline meds Full Code DVT pptx - Lovenox Quality Stroke Does the patient have a stroke diagnosis?: No VTE Prior VTE?: No VTE Risk Level:: Medical - moderate - high VTE Device Contraindication: N/A - Device Ordered VTE Drug Contraindication: N/A - Med Ordered
[2025-02-24] VITALS (8 sets, daily range): BP systolic 110–140; BP diastolic 70–80; PULSE 65–75; RESP 16–20; TEMP 36.1–36.6; O2SAT 94–99
[2025-02-24 06:03] LABS: MANUAL DIFF FLAG NO
[2025-02-24 06:12] LABS: Hematocrit 35.8 % (37.0-47.0); Hemoglobin 11.4 g/dl (12.0-16.0); Imm Gran Abs Auto 0.02 X10*3/uL (0.00-0.03); Imm Gran Pct Auto 0.6 % (0.0-0.4); Lymphocytes Absolute Auto 0.7 X10*3/uL (1.2-4.9); Mean Corpuscular HGB Conc 31.8 g/dl (31.0-35.0); Mean Corpuscular Hemoglobin 29.5 pg (27.0-33.0); Mean Corpuscular Volume 92.5 fL (80.0-98.0); NRBC Abs Auto 0.000 X10*3/uL (0.0-0.012); NRBC Pct Auto 0.0 /100WBC (0.0-0.2); Platelet Count 133 X10*3/uL (160-400); Red Blood Count 3.87 X10*6/uL (4.20-5.50); White Blood Count 3.3 X10*3/uL (4.8-10.8)
[2025-02-24] MEDS: Albuterol/Iprat 2.5/0.5MG 3 ML AMPUL.NEB INHALE ×3 (08:05→19:17)
[2025-02-24] MEDS: Fluticasone/Umeclidinium/Vilanterol 200/62.5/25 BLST.W.DEV 1 PUFF INHALE (08:05)
[2025-02-24] MEDS: guaiFENesin LA 600 MG TAB.ER.12H PO ×2 (08:19→20:19)
[2025-02-24] MEDS: Buprenorphine/Naloxone 12/3 mg FILM 1 FILM SUBLINGUAL (08:20)
[2025-02-24] MEDS: 0.9 % Sodium Chloride Flush 3 ML SYRINGE IVFLUSH ×2 (08:22→20:20)
--- NOTE | 2025-02-24 10:27 | P.PNIM_ITS ---
Subjective Subjective Date of Service: 02/24/25 Interval History: Follow-up for COPD exacerbation Patient reports she is not feeling well, reporting intermittent dizziness, shortness of breath with movement Constitutional Constitutional: Denies chills and Denies fever(s) Physical Exam 2 Vital Signs: Vital Signs: Last Vital Signs Temp 98 F 02/24/25 06:44 Pulse 75 02/24/25 08:06 Resp 18 02/24/25 08:06 BP 140/71 H 02/24/25 06:44 Pulse Ox 97 02/24/25 06:44 O2 Del Method Nasal Cannula 02/24/25 06:44 O2 Flow Rate 2 02/24/25 06:44 Appearing in no acute distress lung sounds are clear to auscultation heart regular rate rhythm, clear S1, S2 positive bowel sounds, abdomen is soft, nontender neuro patient is alert x3, no focal deficits Objective Data Active Medications Acetaminophen (Acetaminophen 325 Mg Tablet) 650 mg PO Q6H PRN PRN Reason: Pain, Mild 1-3,fever,headache Last Admin: 02/20/25 20:28 Dose: 650 mg Documented By: MAREN Albuterol/Ipratropium (Albuterol/Iprat 2.5/0.5mg 3 Ml Ampul.Neb) 3 ml INHALE RQ4H WHILE AWAKE [facility] Last Admin: 02/24/25 08:05 Dose: 3 ml Documented By: TRINITY Albuterol/Ipratropium (Albuterol/Iprat 2.5/0.5mg 3 Ml Ampul.Neb) 3 ml INHALE Q4H PRN PRN Reason: Wheezing Last Admin: 02/21/25 05:03 Dose: 3 ml Documented By: JENNIFER Buprenorphine/Naloxone (Buprenorphine/Naloxone 12/3 Mg Film) 1 film SUBLINGUAL DAILY [facility] Last Admin: 02/24/25 08:20 Dose: 1 film Documented By: MATTI Calcium Carbonate (Calcium Carbonate 750 Mg Tab.Chew) 750 mg PO Q4H PRN PRN Reason: Heartburn Last Admin: 02/24/25 03:15 Dose: 750 mg Documented By: JANIE Clonazepam (Clonazepam 0.5 Mg Tablet) 0.25 mg PO TID PRN PRN Reason: Anxiety Last Admin: 02/24/25 03:12 Dose: 0.25 mg Documented By: JANIE Clopidogrel Bisulfate (Clopidogrel Bisulfate 75 Mg Tablet) 75 mg PO DAILY [facility] Last Admin: 02/24/25 08:20 Dose: 75 mg Documented By: MATTI Doxycycline Monohydrate (Doxycycline Monohydrate 100 Mg Capsule) 100 mg PO BID [facility] Last Admin: 02/24/25 08:20 Dose: 100 mg Documented By: MATTI Fluticasone/Umeclidinium/Vilanterol (Fluticasone/Umeclidinium/Vilanterol 200/62.5/25 Blst.W.Dev) 1 puff INHALE RDAILY [facility] Last Admin: 02/24/25 08:05 Dose: 1 puff Documented By: TRINITY Guaifenesin (Guaifenesin La 600 Mg Tab.Er.12h) 600 mg PO BID [facility] Last Admin: 02/24/25 08:19 Dose: 600 mg Documented By: MATTI Guaifenesin/Codeine Phosphate (Guaifen/Codeine Sf 200/20/10ml 10 Ml Liquid) 5 ml PO Q6H PRN PRN Reason: Cough Last Admin: 02/23/25 17:25 Dose: 5 ml Documented By: LUIS ARMANDO Levothyroxine Sodium (Levothyroxine Sodium 125 Mcg Tablet) 125 mcg PO DAILY@0600 [facility] Last Admin: 02/24/25 05:37 Dose: 125 mcg Documented By: JANIE Magnesium Hydroxide (Milk Of Magnesia 30 Ml Oral.Susp) 30 ml PO DAILY PRN PRN Reason: Constipation Meclizine HCl (Meclizine Hcl 12.5 Mg Tablet) 12.5 mg PO Q8H PRN PRN Reason: dizziness Melatonin (Melatonin 3 Mg Tablet) 6 mg PO BEDTIME PRN PRN Reason: Insomnia Last Admin: 02/20/25 20:28 Dose: 6 mg Documented By: MAREN Mirtazapine (Mirtazapine 15 Mg Tablet) 15 mg PO BEDTIME [facility] Last Admin: 02/23/25 20:39 Dose: 15 mg Documented By: JANIE Olanzapine (Olanzapine 10 Mg Tablet) 10 mg PO BEDTIME [facility] Last Admin: 02/23/25 20:39 Dose: 10 mg Documented By: JANIE Ondansetron HCl (Ondansetron Hcl 4 Mg/2 Ml Vial) 4 mg IVPUSH Q8H PRN PRN Reason: Nausea and Vomiting Last Admin: 02/22/25 15:18 Dose: 4 mg Documented By: JANIE Prednisone (Prednisone 20 Mg Tablet) 40 mg PO DAILY [facility] Last Admin: 02/24/25 08:19 Dose: 40 mg Documented By: MATTI Roflumilast (Roflumilast 500 Mcg Tablet) 500 mcg PO DAILY [facility] Last Admin: 02/24/25 08:19 Dose: 500 mcg Documented By: MATTI Sertraline HCl (Sertraline Hcl 25 Mg Tablet) 25 mg PO DAILY [facility] Last Admin: 02/24/25 08:20 Dose: 25 mg Documented By: MATTI Sertraline HCl (Sertraline Hcl 100 Mg Tablet) 100 mg PO DAILY [facility] Last Admin: 02/24/25 08:19 Dose: 100 mg Documented By: MATTI Sodium Chloride (0.9 % Sodium Chloride Flush 3 Ml Syringe) 3 ml IVFLUSH QSHIFT [facility] Last Admin: 02/24/25 08:22 Dose: 3 ml Documented By: MATTI Labs 02/24/25 05:36 02/20/25 04:30 Labs: Laboratory Results - last 24 hr 02/24/25 05:36 MCV 92.5 MCH 29.5 MCHC 31.8 RDW 13.8 Plt Count 133 L MPV 10.1 Immature Gran % (Auto) 0.6 H Neut % (Auto) 66.1 Lymph % (Auto) 22.6 [place] % (Auto) 10.7 Eos % (Auto) 0.0 Baso % (Auto) 0.0 Lymph # (Auto) 0.7 L [place] # (Auto) 0.4 Eos # (Auto) 0.0 Baso # (Auto) 0.0 Abs Immat Gran (auto) 0.02 Absolute Neuts (auto) 2.2 Absolute Nucleated RBC 0.000 Nucleated RBC % (auto) 0.0 Assessment and Plan (1) COPD with acute exacerbation: Status: Acute Plan 69 yo F with COPD, chronic resp failure on 2-3L at baseline who presents with a several day history of sob/cough. Diagnosed with acute copd excerbation. Acute COPD exacerbation. Resolved chest CT with no acute finding trop, BNP negative solu-medrol weaned to prednisone empiric doxy continue breathing treatments mucinex/CPT baseline inhalers Dizziness. Resolved orthos negative documented from previous notes, appears chronic. intermittent. has a diagnosis of BPPV on problem list no focal deficits appreciated denies dizziness today prn meclizine Chronic resp failure continue baseline O2 Chronic opiate dependence continue suboxone Hypothyroid synthroid Mood continue baseline inhalers PVD plavix HTN continue baseline meds Full Code DVT pptx - Lovenox DISPO PT consult Quality Stroke Does the patient have a stroke diagnosis?: No VTE Prior VTE?: No VTE Risk Level:: Medical - moderate - high VTE Device Contraindication: N/A - Device Ordered VTE Drug Contraindication: N/A - Med Ordered
[2025-02-25 03:25] VITALS: BP 135/69; PULSE 69; RESP 16; TEMP 36.4; O2SAT 97
[2025-02-25 06:26] LABS: MANUAL DIFF FLAG NO
[2025-02-25 06:31] LABS: Hematocrit 37.8 % (37.0-47.0); Hemoglobin 12.3 g/dl (12.0-16.0); Imm Gran Abs Auto 0.04 X10*3/uL (0.00-0.03); Imm Gran Pct Auto 1.0 % (0.0-0.4); Lymphocytes Absolute Auto 1.4 X10*3/uL (1.2-4.9); Mean Corpuscular HGB Conc 32.5 g/dl (31.0-35.0); Mean Corpuscular Hemoglobin 30.0 pg (27.0-33.0); Mean Corpuscular Volume 92.2 fL (80.0-98.0); NRBC Abs Auto 0.000 X10*3/uL (0.0-0.012); NRBC Pct Auto 0.0 /100WBC (0.0-0.2); Platelet Count 140 X10*3/uL (160-400); Red Blood Count 4.10 X10*6/uL (4.20-5.50); White Blood Count 4.1 X10*3/uL (4.8-10.8)
[2025-02-25 06:55] VITALS: BP 152/78; PULSE 67; RESP 17; TEMP 36.6; O2SAT 98
[2025-02-25] MEDS: Fluticasone/Umeclidinium/Vilanterol 200/62.5/25 BLST.W.DEV 1 PUFF INHALE (07:43)
[2025-02-25 07:44] VITALS: PULSE 67; RESP 17; O2SAT 96
[2025-02-25] MEDS: Albuterol/Iprat 2.5/0.5MG 3 ML AMPUL.NEB INHALE (07:44)
[2025-02-25] MEDS: guaiFENesin LA 600 MG TAB.ER.12H PO (08:17)
[2025-02-25] MEDS: Buprenorphine/Naloxone 12/3 mg FILM 1 FILM SUBLINGUAL (08:18)
[2025-02-25] MEDS: 0.9 % Sodium Chloride Flush 3 ML SYRINGE IVFLUSH (08:20)
--- NOTE | 2025-02-25 11:03 | PM.DS ---
DS: Providers Provider Date of Service: 02/25/25 Date of admission: 02/21/25 15:09 Date of discharge: 02/25/25 Primary care physician: Eddie Watkins MD DS: Diagnosis Discharge Diagnosis (1) COPD with acute exacerbation: Status: Acute DS: Summary Hospital Course Hospital Course: History and physical as per admitting provider. Patient is a 69-year-old female with a past medical history of chronic respiratory failure with hypoxia on 2-3 L supplemental oxygen, COPD, mood disorder, hypertension, hypothyroidism, chronic opiate dependence on Suboxone who presents to [facility] ED with complaints of shortness of breath and productive cough of yellow sputum for about 2-3 days prior to hospitalization. The patient reports taking her improvement. She reports increased dyspnea on exertion and required higher oxygen than her baseline. Hence she presented to the emergency room. In the ED patient underwent chest x-ray and CT chest which showed no acute findings. She was treated for COPD exacerbation but continues to be short of breath with diffuse wheezing hence we will be observed overnight. Acute on chronic resp failure secondary to acute COPD exacerbation. Resolved . chest CT with no acute finding, trop, BNP negative. Treated with solu-medrol weaned to prednisone. , empiric doxy . Continue baseline inhalers Dizziness. Resolved . orthos negative, documented from previous notes, appears chronic. intermittent. has a diagnosis of BPPV on problem list . no focal deficits appreciated. denies dizziness toda. Chronic opiate dependence. continue suboxone Hypothyroid. synthroid Mood. continue baseline inhalers PVD. plavix HTN. continue baseline meds Less than 30 day stay Time Attestation Discharge Coordination Time (in mins): 45 Quality: Safe Use of Opioids Does Pt have an Active Cancer Diagnosis on the Problem List?: No Quality: Stroke Does the patient have a stroke diagnosis?: No Physical Exam Vital Signs: Vital Signs: Last Vital Signs Temp 98 F 02/25/25 06:55 Pulse 67 02/25/25 07:44 Resp 17 02/25/25 07:44 BP 152/78 H 02/25/25 06:55 Pulse Ox 98 02/25/25 06:55 O2 Del Method Nasal Cannula 02/25/25 06:55 O2 Flow Rate 2 02/25/25 06:55 Appearing in no acute distress head is normocephalic atraumatic eyes pupils are PERRLA sclera is anicteric mouth throat mucous membranes are intact and moist neck is supple no lymphadenopathy, no JVD noted lung sounds are clear to auscultation heart regular rate rhythm, clear S1, S2 positive bowel sounds, abdomen is soft, nontender neuro patient is alert x3, no focal deficits DS: Data Data Completed and Pending Completed studies during hospitalization [Text1]: Procedures Assistance with Respiratory Ventilation, Less than 24 Consecutive Hours, Continuous Positive Airway Pressure (07/25/24) Labs on day of discharge: Laboratory Results - last 24 hr 02/25/25 06:03 WBC 4.1 L RBC 4.10 L Hgb 12.3 Hct 37.8 MCV 92.2 MCH 30.0 MCHC 32.5 RDW 13.5 Plt Count 140 L MPV 9.6 Immature Gran % (Auto) 1.0 H Neut % (Auto) 57.8 Lymph % (Auto) 32.8 [place] % (Auto) 7.0 Eos % (Auto) 1.2 Baso % (Auto) 0.2 Lymph # (Auto) 1.4 [place] # (Auto) 0.3 Eos # (Auto) 0.1 Baso # (Auto) 0.0 Abs Immat Gran (auto) 0.04 H Absolute Neuts (auto) 2.4 Absolute Nucleated RBC 0.000 Nucleated RBC % (auto) 0.0 Discharge Plan Discharge Anticipated Discharge Date/Time: 02/25/25 10:56 Patient Disposition: Xfer SNF Discharge Diagnosis: Acute on chronic respiratory failure Acute COPD exacerbation Dizziness Referrals: [facility] [Other] - 1 Week Eddie Watkins MD [Primary Care Provider, Internal Medicine] - 1 Week Discharge Medications: New albuterol sulfate [Ventolin HFA] 90 mcg/actuation HFA aerosol inhaler 2 puff inhalation Q4-6H PRN (Reason: shortness of breath or wheezing) Qty: 8.5 0RF Continued (DME) Walker with wheels and baske, seat, and break See Rx Instructions .Route .MEDSUPPLY Qty: 1 0RF Rx Instructions: Walker with wheels, break, seat and basket sertraline 100 mg tablet 100 mg PO DAILY 90 Days Qty: 90 0RF (DME) Pant Liners, Large Pad See Rx Instructions .Route Qty: 96 5RF Rx Instructions: Change as needed, up to 3 per day clopidogrel [Plavix] 75 mg tablet 75 mg PO DAILY 90 Days Qty: 90 1RF levothyroxine 125 mcg tablet 125 mcg PO DAILY@0600 Qty: 90 0RF mirtazapine 15 mg tablet 15 mg PO BEDTIME roflumilast 500 mcg tablet 500 mcg PO DAILY buprenorphine-naloxone 12-3 mg film 1 film sublingual DAILY Qty: 7 0RF sertraline 25 mg tablet 25 mg PO DAILY olanzapine 10 mg tablet 10 mg PO BEDTIME clonazepam 0.5 mg tablet 0.25 mg PO TID PRN (Reason: anxiety) Trelegy Ellipta 200-62.5-25 mcg blister with device 1 ea inhalation DAILY Discharge Orders: Discharge Order (Routine); Ordered 02/25/25 Ordered By: Gina Smith Diet: Advance to usual diet Activity on Discharge: As tolerated Stand Alone Forms: Patient Portal Discharge page Print Language: Tunisian Care Plan Goals: Continue current medications Continue baseline oxygen Health Concerns: Acute on chronic respiratory failure Acute COPD exacerbation Dizziness Plan of Treatment: Follow-up with primary care provider as needed Take all medications as prescribed Assessment: See discharge summary Patient Instructions: Chronic Bronchitis (ED), Anxiety (ED)
[2025-02-25 13:22] VITALS: BP 132/82; PULSE 88; RESP 16; TEMP 36.4; O2SAT 94
[2025-02-25 14:57] VITALS: BP 119/66; PULSE 81; RESP 16; TEMP 36.5; O2SAT 98
== END 2025-02-25 15:12 | disposition skilled nursing facility (03) | DRG 190 ==
LOC: HO.ED 08:53 → HO.EDOVER 09:15 → HO.S3 02-21 07:24
PROVIDERS: Physician Assistant Medical; Admitting Provider Family Medicine; Emergency Provider Emergency Medicine; PCP Internal Medicine; Visit Provider Nurse Practitioner Acute Care
DX: J44.1 Chronic obstructive pulmonary disease with (acute) exacerbation (principal); J96.20 Acute and chronic respiratory failure, unspecified whether with hypoxia or hypercapnia; F11.20 Opioid dependence, uncomplicated; E03.9 Hypothyroidism, unspecified; R42 Dizziness and giddiness; F39 Unspecified mood [affective] disorder; I73.9 Peripheral vascular disease, unspecified; Z20.822 Contact with and (suspected) exposure to COVID-19; Z99.81 Dependence on supplemental oxygen; Z87.891 Personal history of nicotine dependence; Z79.51 Long term (current) use of inhaled steroids; Z79.890 Hormone replacement therapy; Z79.899 Other long term (current) drug therapy
CPT/HCPCS: 36415; 71045; 71250; 80053; 82248; 82803; 83605; 83880; 84484; 85025; 87040; 87637; 93005; 94640; 97161; 99221; 99285; J1271; J1308; J2405; J2919

== ENCOUNTER → 2025-02-20 03:50 | Outpatient (BNV) | payer MEDICARE, MEDICAID, SELFPAY | PROVIDERS: Admitting Provider Family Medicine; Emergency Provider Emergency Medicine; PCP Internal Medicine; Visit Provider Internal Medicine Cardiovascular Disease | DX: I49.3 Ventricular premature depolarization (principal) | CPT/HCPCS: 93010 ==

== ENCOUNTER → 2025-02-20 06:33 | Outpatient (BNV) | payer MEDICARE, MEDICAID, SELFPAY | PROVIDERS: Emergency Provider Emergency Medicine; PCP Internal Medicine; Visit Provider Specialist | DX: J43.9 Emphysema, unspecified (principal); R06.02 Shortness of breath | CPT/HCPCS: 71045; 71250 ==

== ENCOUNTER → 2025-02-20 09:02 | Outpatient (BNV) | payer MEDICARE, MEDICAID, SELFPAY | PROVIDERS: Admitting Provider Family Medicine; Emergency Provider Emergency Medicine; PCP Internal Medicine; Visit Provider Family Medicine | DX: J44.1 Chronic obstructive pulmonary disease with (acute) exacerbation (principal) | CPT/HCPCS: 99222; 99232 ==